=== PATIENT | female | born 1960 | race Caucasian/White ===

== ENCOUNTER → 2017-12-09 15:39 | Outpatient (CLI) | payer MEDICARE, SELFPAY ==
[2017-12-09 17:29] LABS: Absolute Lymphocyte Count 2.57 X10^3/ul (0.83-4.51); Absolute Neutrophil Count 3.2 X10^3/uL (2.0-7.7); Basophil# 0.09 X10^3/uL; Basophil% 1.4 % (0-1); Eosinophil# 0.16 X10^3/uL; Eosinophils% 2.4 % (0-5); Hematocrit 39.3 % (37-47); Hemoglobin 13.2 g/dl (12.0-15.0); Lymphocyte # 2.57 X10^3/ul (4.0); Lymphocyte % 39.2 % (19-41); Mean Corp Hgb Conc 33.6 g/gl (32-36); Mean Corpuscular Hgb 31.2 pg (27.0-32.0); Mean Corpuscular Volume 92.9 fL (81-99); Mean Platelet Vol. 9.9 fl (6.2-12.0); Monocyte# 0.49 X10^3/uL; Monocyte% 7.5 % (0-10); Neutrophil # 3.24 X10^3/uL (2.7-7.7); Neutrophil % 49.5 % (47-70); Platelet Count 360 K/mm3 (150-450); RBC Distribution Width CV 12.8 % (11.6-14.6); RBC Distribution Width SD 43.3 fl (35.1-43.9); Red Blood Count 4.23 M/mm3 (4.2-5.4); White Blood Count 6.6 K/mm3 (4.4-11.0)
[2017-12-09 17:33] LABS: POSITIVE COUNT NO; POSITIVE DIFFERENTIAL NO; POSITIVE MORPHOLOGY NO
[2017-12-09 18:01] LABS: AST(SGOT) 19 U/L (15-37); Alanine Aminotransfer ALT/SGPT 25 U/L (13-56); Albumin, Serum 3.9 g/dL (3.2-5.0); Alkaline Phosphatase 119 U/L (45-117); Anion Gap 10 (5-15); BUN 15 mg/dL (7-18); BUN/Creat Ratio 12.7 RATIO (10-20); Calcium,Total 8.7 mg/dL (8.5-10.1); Chloride 101 mmol/L (98-107); Creatinine, Serum 1.18 mg/dL (0.55-1.02); EST Glomerular Filtration Rate 50 mL/min (>60); Est Glom Filt Rate - Afr Amer 60 mL/min (>60); Globulin 3.9 g/dL (2.2-4.2); Glucose 98 mg/dL (74-106); Potassium 3.5 mmol/L (3.5-5.1); Protein, Total 7.8 g/dL (6.4-8.2); Sodium Level 136 mmol/L (136-145); Thyroid Stim Hormone (TSH) 2.02 uIU/mL (0.358-3.74)
[2017-12-10 10:07] LABS: Vitamin D,25 Hydroxy 34.5 ng/mL (29.95-100.01)
== END ==
PROVIDERS: Family Provider Family Medicine Geriatric Medicine; PCP Family Medicine Geriatric Medicine; Visit Provider Family Medicine Geriatric Medicine
DX: E55.9 Vitamin D deficiency, unspecified (principal); R53.83 Other fatigue
CPT/HCPCS: 36415; 80053; 82306; 84443; 85025

== ENCOUNTER → 2020-04-26 18:23 | Outpatient (CLI) | payer MEDICARE, SELFPAY | PROVIDERS: PCP Family Medicine Geriatric Medicine; Referring Provider Family Medicine Geriatric Medicine; Visit Provider Family Medicine Geriatric Medicine | DX: R06.89 Other abnormalities of breathing (principal) | CPT/HCPCS: 87633; 87635; C9803; U0003 ==

== ENCOUNTER → 2020-05-29 14:12 | Outpatient (CLI) | payer MEDICARE, SELFPAY ==
[2017-02-10 09:30] VITALS: BMI 27.8
[2020-05-29 16:38] LABS: Absolute Lymphocyte Count 1.97 X10^3/uL (0.83-4.51); Absolute Neutrophil Count 4.4 X10^3/uL (2.0-7.7); Basophil# 0.11 X10^3/uL; Basophil% 1.6 % (0-1); Eosinophil# 0.09 X10^3/uL; Eosinophils% 1.3 % (0-5); Hematocrit 43.9 % (37-47); Hemoglobin 13.9 g/dL (12.0-15.0); Lymphocyte # 1.97 X10^3/ul (4.0); Lymphocyte % 28.1 % (19-41); Mean Corp Hgb Conc 31.7 g/dL (32-36); Mean Corpuscular Hgb 30.6 pg (27.0-32.0); Mean Corpuscular Volume 96.7 fL (81-99); Monocyte% 5.7 % (0-10); NRBC Flagged by Analyzer 0 % (0-5); Neutrophil # 4.42 X10^3/uL (2.7-7.7); Platelet Count 404 K/mm3 (150-450); RBC Distribution Width CV 12.8 % (11.6-14.6); RBC Distribution Width SD 46.4 fl (35.1-43.9); Red Blood Count 4.54 M/mm3 (4.2-5.4)
[2020-05-29 17:00] LABS: ALB/GLOB Ratio 1.2 RATIO (0.9-2.4); AST(SGOT) 15 U/L (15-37); Alanine Aminotransfer ALT/SGPT 20 U/L (13-56); Albumin, Serum 4.2 g/dL (3.2-5.0); Alkaline Phosphatase 89 U/L (45-117); Anion Gap 4 (5-15); BUN 8 mg/dL (7-18); BUN/Creat Ratio 6.7 RATIO (10-20); Calcium,Total 9.3 mg/dL (8.5-10.1); Chloride 102 mmol/L (98-107); EST Glomerular Filtration Rate 49 mL/min (>60); Est Glom Filt Rate - Afr Amer 59 mL/min (>60); Globulin 3.4 g/dL (2.2-4.2); Glucose 95 mg/dL (74-106); Potassium 3.9 mmol/L (3.5-5.1); Protein, Total 7.6 g/dL (6.4-8.2); Sodium Level 136 mmol/L (136-145); Thyroid Stim Hormone (TSH) 0.94 uIU/mL (0.358-3.74)
== END ==
LOC: POLAB3 14:13
PROVIDERS: PCP Family Medicine Geriatric Medicine; Visit Provider Family Medicine Geriatric Medicine
DX: E55.9 Vitamin D deficiency, unspecified (principal); R53.83 Other fatigue
CPT/HCPCS: 36415; 80053; 82306; 84443; 85025

== ENCOUNTER → 2020-06-24 15:03 | Outpatient (CLI) | payer MEDICARE, MEDICAID, SELFPAY ==
--- NOTE | 2020-06-24 15:04 | BI_ITS ---
MAMMOGRAPHY - BILATERAL SCREENING REASON FOR EXAM: Female, 60 years old. Routine annual screening examination. PERTINENT HISTORY: Sister with breast cancer. TECHNIQUE: Digital bilateral breast terrence (3D mammographic acquisition) in the CC and MLO projections. 2-D mediolateral oblique (MLO) and craniocaudad (CC) views of both breasts were obtained. CAD: Full Field Digital Mammography with Computer Added Detection was performed. COMPARISON: Comparison is made with prior study dated 09/18/2016. FINDINGS: Breast Composition: The breasts are heterogeneously dense, which may obscure small masses. There are no dominant masses or suspicious calcifications. Stable small benign-appearing bilateral axillary lymph nodes. No other significant abnormalities are identified. There has been no significant change since the prior study. BI/SCRN MAMM (CAD)W/TERRENCE BILAT IMPRESSION: Stable bilateral screening mammogram. Yearly follow-up mammogram recommended. (A) ASSESSMENT CATEGORY: BIRADS Category 2: Benign. A letter regarding these results will be sent to the patient by the facility within 30 days. Approximately 10% of breast cancers are not detected by mammography. A normal mammogram should not delay biopsy of a clinically suspicious abnormality. [id number] Electronically Signed: Flo Reyes MD at 8:28 EST , Service support ,
--- NOTE | 2020-06-24 15:53 | CT_ITS ---
STUDY: LOW DOSE CT LUNG CANCER SCREENING REASON FOR EXAM: Female, 60 years old. LUNG SCREENING -- +SMOKER 1/2PPD X50 YEARS RADIATION DOSAGE (If Supplied By Facility): CTDIvol = ( 1.70 ) mGy, DLP = ( 48.72 ) mGycm TECHNIQUE: No contrast was administered. Low dose technique was utilized (average mAS-38 and kVp 120). 1.25 mm axial source images with a slice interval of 1.25-mm were reconstructed in lung windows. 2.5 mm axial source images with a slice interval of 2.5-mm were reconstructed in lung windows. 5.0 mm axial source images with a slice interval of 5.0-mm were reconstructed in soft tissue windows. Nodule measured using lung windows on PACS and/or independent workstation with automated measurement of minimum and maximum diameter. Nodule measurement reported as average diameter rounded to the nearest whole number. Growth is defined as an increase ins size of greater than 1.5 mm. COMPARISON: None. NODULES: No suspicious nodules are seen. Emphysema: Minimal increased linear markings are seen in the medial aspect of the right middle lobe as well as the lingular segment of the left upper lobe suggestive of mild scarring. Endobronchial lesion: Aorta: Mild atherosclerotic plaque and calcification at the aortic arch. Coronary arteries: Coronary artery calcification. Mediastinal nodes: Small benign-appearing mediastinal lymph nodes. Other chest and abdominal findings: CT/Low Dose CT Lung Screening IMPRESSION: Lung-RADS category 2 - Continue annual screening with LDCT in 12 months. IMPORTANT NOTES FOR USE: ACR Lung-RADS Version 1.0 Assessment Categories Release Date: September 11, 2013 Category: Coded 0-4 bases on nodule(s) with highest degree of suspicion. Negative screen is defined as categories 1 and 2; a positive screen is defined as categories 3 and 4. Category 3 and 4A nodules that are unchanged on interval CT should be coded as category 2, and individuals returned to screening in 12 months. Category 4X: Category 3 or 4 nodules with additional imaging findings that increase the suspicion of lung cancer, such as spiculation, GGN that doubles in size in 1 year, enlarged lymph notes, etc. Category Modifiers: S (significant finding unrelated to lung cancer) and C (prior history of treated lung cancer) may be added to the 0-4 Lung-RADS Electronically Signed: Flo Reyes MD at 8:55 EST , Service support ,
== END ==
PROVIDERS: PCP Family Medicine Geriatric Medicine; Referring Provider Family Medicine Geriatric Medicine; Visit Provider Family Medicine Geriatric Medicine
DX: Z12.31 Encounter for screening mammogram for malignant neoplasm of breast (principal); F17.210 Nicotine dependence, cigarettes, uncomplicated
CPT/HCPCS: 71271; 77063; 77067

== ENCOUNTER 2020-09-16 07:46 | Day surgery (SDC) | payer MEDICARE, MEDICAID, SELFPAY ==
[2020-08-26 14:01] VITALS: BMI 29.5
[2020-09-16] VITALS (8 sets, daily range): BP systolic 94–107; BP diastolic 57–77; PULSE 63–85; RESP 16–18; TEMP 35.7–36.2; O2SAT 90–95; BMI 28.8
--- NOTE | 2020-09-16 | GASB_PTH ---
PATIENT: NAVIN AUGUST I LOC: EN U#:[id number] AGE/SX: 60/F ROOM: RE09/16/[address]: Dr. Jenn Tolentino MD : 1960 BED: DIS: 09/16/2020 SPEC #: [id number] RECD: 09/16/20 13:38 STATUS: BLADIMIR REQ #: [id number] PATRICIO: 09/16/20 00:[address]: Jenn Tolentino DEPT: SURGICAL PATHOLOGY RECD BY: Enrike Erickson ENTERED: 09/16/20 13:38 SP TYPE: Gastric Bx OTHR DR: Dr. Yobany Snell MD Tissues: Gastric mucous membrane Procedures: Surgery Specimen Level IV HEADER OPERATION: Colonoscopy, EGD ([facility]) PRE-OP DIAGNOSIS: Positive Cologuard TISSUE SUBMITTED: Antrum biopsy for H. pylori and path MICROSCOPIC DIAGNOSIS Antrum biopsy: Mild gastritis. See microscopic description and comment. SJ:emily 09/17/2020 COMMENT The results of immunohistochemistry for Helicobacter pylori will be reported separately ([id number]). MICROSCOPIC DESCRIPTION Slides are reviewed. The specimen shows fragments of gastric mucosa with chronic inflammatory cell infiltrates in the lamina propria consisting of lymphocytes and plasma cells, consistent with mild chronic gastritis. GROSS DESCRIPTION Received in fixative is one container labeled with the patient's name and designated antrum biopsy. The specimen consists of one irregular fragment of light saucedo soft tissue that measures 0.3 x 0.3 x 0.1 cm. The specimen is totally submitted in one cassette. / DAMARIS:emily 09/16/20 TC:4 CPT: 24813
--- NOTE | 2020-09-16 08:06 | HP.PCM_ITS ---
History and Physical Date of Admission: 09/16/20 Date of Service: 08/26/20 MR#:[id number]:[id number]: NAVIN AUGUST [facility] #:[id number]:1960 Provider:Michael Calzada/Sex: 60/F [facility] Int[facility] Vital Signs 08/26/20 Height 5 ft 08/26/20 Weight: 151 lb 08/26/20 BMI 29.5 08/26/20 BP 129/83 H 08/26/20 Blood Pressure Location Rt brachial 08/26/20 Position Sitting 08/26/20 Respiration 16 08/26/20 Pulse 84 08/26/20 Pulse Source Monitor 08/26/20 Temp 97.8 F 08/26/20 Temp Source Temporal 08/26/20 Pulse Oximetry (%) 94 08/26/20 Oxygen Delivery Method room air Intake Visit Reasons: POSITIVE COLOGUARD, CSCOPE 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 Is patient in pain?: No Allergies levofloxacin [From Levaquin] Allergy (Verified 01/26/17 09:35) Angioedema Medications Levothyroxine [Synthroid] 25 mcg PO DAILY 03/08/15 [History Confirmed 08/26/20] Meloxicam [Mobic] 7.5 mg PO BID 03/08/15 [History Confirmed 08/26/20] Potassium Chloride Oral Tablet [K-Dur] 10 meq PO BID 03/08/15 [History Confirmed 02/10/17] Omeprazole [Prilosec] 40 mg PO DAILY 01/05/17 [History Confirmed 08/26/20] Suvorexant [Belsomra] 15 mg PO QHS 01/05/17 [History Confirmed 02/10/17] Topiramate [Topamax] 50 mg PO QHS 01/05/17 [History Confirmed 02/10/17] clonazepam 1 mg tablet 1 mg PO BID PRN tablet 08/26/20 [History Confirmed 08/26/20] fentanyl 50 mcg/hr transdermal patch 1 patch TD each 08/26/20 [History Confirmed 08/26/20] ipratropium bromide 42 mcg (0.06 %) nasal spray INTRANASAL 08/26/20 [History Confirmed 08/26/20] lamotrigine 200 mg tablet 400 mg PO DAILY tablet 08/26/20 [History Confirmed 08/26/20] levocetirizine 5 mg tablet mg PO 08/26/20 [History Confirmed 08/26/20] sertraline 50 mg tablet mg PO 08/26/20 [History Confirmed 08/26/20] tizanidine 4 mg tablet 4 mg PO TID PRN tablet 08/26/20 [History Confirmed 08/26/20] PFSH Medical History (Updated 08/26/20 @ 13:57 by Imelda Batres) Vitamin D deficiency (Acute) Osteoarthritis (Acute) Chronic pain (Chronic) Depression (Acute) Anxiety (Acute) Hyperlipidemia (Acute) Surgical History (Updated 08/26/20 @ 13:59 by Imelda Batres) Hx of colonoscopy (Acute) Hx of exploratory laparotomy (Acute) Family History (Updated 08/26/20 @ 14:01 by Imelda Batres) Father Asthma Heart disease Osteoporosis Mother Arthritis Diabetes Thyroid disorder Brother CVA (cerebral vascular accident) Sister Breast cancer Social History (Updated 08/26/20 @ 14:[address] Jenn Tolentino MD) Smoking Status: Current every day smoker second hand exposure: No alcohol intake: never substance use type: does not use caffeine: Yes HPI HPI HPI: NAVIN AUGUST, is a 60 F who presents to the office today for HPI HPI Surgical H&P: Yes HPI: NAVIN AUGUST, is a 60 F who presents to the office today for positive Cologuard. Patient's last colonoscopy was 02/10/2017 showed melanosis coli and had a hyperplastic rectal polyp. Patient states she occasionally has small amount of blood due to hemorrhoids otherwise has bowel once daily denies any other blood. Patient states she has reflux maybe about once a month denies any chronic abdominal pain nausea or vomiting. Patient is never had EGD previously. Patient's paternal grandmother had colon cancer in her late year 60s or early 70s. ROS General General: Yes fatigue; no weight change Gastro Gastrointestinal: No abdominal pain, No nausea or vomiting, No diarrhea, Yes constipation, No blood in stool, No acid reflux, No hemorrhoids, No ulcers, No gallbladder problem, No black,tarry stools Exam Const General: cooperative, comfortable, no acute distress, well developed Resp Effort & Inspection: normal respiratory effort Cardio Rate: regular rate GI Inspection: non-distended Palpation: soft, nontender Extrem General: no clubbing, cyanosis or edema Psych Affect: normal affect Assessment & Plan Problems 1. Positive colorectal cancer screening using Cologuard test R19.5 Plan I have discussed the above with the patient. I have offered the patient EGD and colonoscopy for evaluation. We will plan for 09/09/2020 per patient request I have explained the risks/benefits of the procedure and described the procedure. I have discussed the risks with the patient, including but not limited to: infection, bleeding, perforation of the GI tract requiring emergency surgery, inability to complete the procedure, injury to any internal organs, complications of anesthesia, etc. - the patient understands and agrees to proceed. I have answered all the patient's questions to the patient's satisfaction and the patient has no further questions. The patient has been given instructions for the colon cleansing preparation. 1 day clears MiraLAX Dulcolax split prep. Jenn Tolentino M.D. Pager: [phone] [facility] [address] [place] [address] [place] [address] Office: [phone] Orders Orders: Colonoscopy Today EGD Today Plan Detail Follow Up We will schedule EGD and colonoscopy Coding Level of Care Code Off vis,est,level 3 Diagnoses Positive colorectal cancer screening using Cologuard test R19.5 COVID (Procedure Consent) Procedure Criteria Procedure Criteria: Yes Elective The surgeon/proceduralist and patient have discussed in detail the risk of exposure to and/or potential harm posed by the COVID-19 virus with having a surgery/procedure at this time versus the risk of delaying the surgery/procedure. It is not possible to know either the risk of delaying the surgery or procedure or chance of getting an infection with perfect accuracy, but a joint decision was made between the patient and the surgeon/proceduralist to proceed at this time with the scheduled surgery/procedure as indicated on the consent form. 08/26/20 1429<Electronically signed by Jenn Tolentino MD>Date Jenn Tolentino MD
[2020-09-16] MEDS: Lactated Ringers 1,000 ML 100 ML IV (08:17)
--- NOTE | 2020-09-16 09:00 | IMM_PTH ---
PATIENT: NAVIN AUGUST I LOC: EN U#:[id number] AGE/SX: 60/F ROOM: RE09/16/[address]: Dr. Jenn Tolentino MD : 1960 BED: DIS: 09/16/2020 SPEC #: [id number] RECD: 09/16/20 14:17 STATUS: BLADIMIR REQ #: [id number] PATRICIO: 09/16/20 09:[address]: Jenn Tolentino DEPT: IMMUNOHISTOCHEMISTRY RECD BY: Mary Will ENTERED: 09/16/20 14:17 SP TYPE: IMMUNO OTHR DR: Dr. Yobany Snell MD Tissues: Stomach, NOS Procedures: H Pylori (initial) PHYSICIAN & INSTITUTION [place] [address] SPECIMEN INFORMATION: Tissue Source: Antrum biopsy Clinical Info: Positive Cologuard Specimen Number: [id number] CPT code: 38228 METHODOLOGY: Deparaffinized sections of prefer/formalin-fixed tissue or PAP/DQ stained slides are incubated with monoclonal/polyclonal antibodies/oligonucleotide probes. Localization is made via biotin free immunoperoxidase method. Appropriate controls are performed and reacted as expected. Results on target cell population are indicated in the following table: RESULTS: ANTIBODY / CLONE RESULT H Pylori (polyclonal) negative These tests were developed and their performance characteristics determined by [facility]. They may not have been cleared or approved by the U.S. Food and Drug Administration. The FDA has determined that such clearance or approval is not necessary. INTERPRETATION: Antrum biopsy: Negative for Helicobacter pylori organisms. DAMARIS:emily 09/17/2020
--- NOTE | 2020-09-16 09:35 | OP.EGD_ITS ---
Patient Name: Lauryn Olsen Procedure Date: 09/16/2020 8:49 AM Date of : 1960 Age: 60 Procedure: Upper GI endoscopy Indications: +cologuard Providers: Jenn Tolentino MD Referring MD: Yobany Snell MD Medicines: Monitored Anesthesia Care Patient Profile: This is a 60 year old female. Complications: No immediate complications. Procedure: Pre-Anesthesia Assessment: - Prior to the procedure, a History and Physical was performed, and patient medications and allergies were reviewed. The patient's tolerance of previous anesthesia was also reviewed. The risks and benefits of the procedure and the sedation options and risks were discussed with the patient. All questions were answered, and informed consent was obtained. Prior Anticoagulants: The patient has taken no previous anticoagulant or antiplatelet agents. ASA Grade Assessment: Per anesthesia. After reviewing the risks and benefits, the patient was deemed in satisfactory condition to undergo the procedure. After obtaining informed consent, the endoscope was passed under direct vision. Throughout the procedure, the patient's blood pressure, pulse, and oxygen saturations were monitored continuously. The gastroscope was introduced through the mouth, and advanced to the second part of duodenum. The upper GI endoscopy was accomplished without difficulty. The patient tolerated the procedure well. Scope In: 8:56:24 AM Scope Out: 9:00:18 AM Total Procedure Duration Time 0 hours 3 minutes 54 seconds Findings: The Z-line was found 35 cm from the incisors. Moderately erythematous mucosa was found in the gastric antrum. Biopsies were taken with a cold forceps for histology. Biopsies were taken with a cold forceps for Helicobacter pylori cultures. The cardia and gastric fundus were normal on retroflexion. The examined duodenum was normal. The esophagus was normal. Impression: - Z-line, 35 cm from the incisors. - Erythematous mucosa in the antrum. Biopsied. - Normal examined duodenum. - Normal esophagus. Recommendation: - Await pathology results. - Discharge patient to home. - Resume previous diet. - Use Protonix (pantoprazole) 40 mg PO daily. - Continue present medications. Procedure Code(s): --- Professional --- 58450, Esophagogastroduodenoscopy, flexible, transoral; with biopsy, single or multiple Diagnosis Code(s): --- Professional --- K31.89, Other diseases of stomach and duodenum CPT copyright 2017 [employer]. All rights reserved. The codes documented in this report are preliminary and upon golf course laborer review may be revised to meet current compliance requirements. MD Jenn Saucedo MD 09/16/2020 9:35:12 AM This report has been signed electronically. Number of Addenda: 0 Note Initiated On: 09/16/2020 8:49 AM
--- NOTE | 2020-09-16 09:35 | OP.CCLET_ITS ---
09/16/2020 Yobany Snell MD [address] [place] [address] Re : Upper GI endoscopy procedure for Lauryn Olsen Dear Dr. Snell This procedure was performed on Wednesday, September 16, 2020. My impressions and recommendations are as follows: Impressions : - Z-line, 35 cm from the incisors. - Erythematous mucosa in the antrum. Biopsied. - Normal examined duodenum. - Normal esophagus. Recommendations : - Await pathology results. - Discharge patient to home. - Resume previous diet. - Use Protonix (pantoprazole) 40 mg PO daily. - Continue present medications. My findings are described in the full procedure note, which is enclosed. If I can be of further assistance, please feel free to contact me at Doctor phone number(s): , Work: . Sincerely, MD Jenn Saucedo MD 09/16/2020 9:35:12 AM This report has been signed electronically.
--- NOTE | 2020-09-16 09:39 | OP.COLON_ITS ---
Patient Name: Lauryn Olsen Procedure Date: 09/16/2020 9:02 AM Date of : 1960 Age: 60 Procedure: Colonoscopy Indications: Positive Cologuard test Providers: Jenn Tolentino MD Referring MD: Yobany Snell MD Medicines: Monitored Anesthesia Care Patient Profile: This is a 60 year old female. Last Colonoscopy: January 2017. Complications: No immediate complications. Procedure: Pre-Anesthesia Assessment: - Prior to the procedure, a History and Physical was performed, and patient medications and allergies were reviewed. The patient's tolerance of previous anesthesia was also reviewed. The risks and benefits of the procedure and the sedation options and risks were discussed with the patient. All questions were answered, and informed consent was obtained. Prior Anticoagulants: The patient has taken no previous anticoagulant or antiplatelet agents. ASA Grade Assessment: Per anesthesia. After reviewing the risks and benefits, the patient was deemed in satisfactory condition to undergo the procedure. After I obtained informed consent, the scope was passed under direct vision. Throughout the procedure, the patient's blood pressure, pulse, and oxygen saturations were monitored continuously. The colonoscope was introduced through the anus and advanced to the cecum, identified by the appendiceal orifice, ileocecal valve and palpation. The colonoscopy was performed without difficulty. The patient tolerated the procedure well. The quality of the bowel preparation was adequate to identify polyps 6 mm and larger in size. Scope In: 9:03:02 AM Scope Withdrawal Time 0 hours 15 minutes 53 seconds Scope Out: 9:28:55 AM Total Procedure Duration Time 0 hours 25 minutes 53 seconds Findings: Hemorrhoids were found on perianal exam. External and internal hemorrhoids were found. The hemorrhoids were Grade II vs III. The exam was otherwise without abnormality. Impression: - Hemorrhoids found on perianal exam. - External and internal hemorrhoids. - The examination was otherwise normal. - No specimens collected. Recommendation: - Discharge patient to home. - Resume previous diet. - Continue present medications. - Repeat colonoscopy in 5 years for screening purposes--due to only adequate prep. MD Jenn Saucedo MD 09/16/2020 9:39:16 AM This report has been signed electronically. Number of Addenda: 0 Note Initiated On: 09/16/2020 9:02 AM
--- NOTE | 2020-09-16 09:40 | OP.CCLET_ITS ---
09/16/2020 Yobany Snell MD [address] [place] [address] Re : Colonoscopy procedure for Lauryn Olsen Dear Dr. Snell This procedure was performed on Wednesday, September 16, 2020. My impressions and recommendations are as follows: Impressions : - Hemorrhoids found on perianal exam. - External and internal hemorrhoids. - The examination was otherwise normal. - No specimens collected. Recommendations : - Discharge patient to home. - Resume previous diet. - Continue present medications. - Repeat colonoscopy in 5 years for screening purposes--due to only adequate prep. My findings are described in the full procedure note, which is enclosed. If I can be of further assistance, please feel free to contact me at Doctor phone number(s): , Work: . Sincerely, MD Jenn Saucedo MD 09/16/2020 9:39:16 AM This report has been signed electronically.
== END 2020-09-16 10:24 ==
LOC: EN 07:47 → AC 07:48
PROVIDERS: PCP Family Medicine Geriatric Medicine; Referring Provider Family Medicine Geriatric Medicine; Visit Provider Surgery
PROC: 0DJD8ZZ Inspection of Lower Intestinal Tract, Via Natural or Artificial Opening Endoscopic (ICD-10-PCS; CPT 45378; principal; 2020-09-16 08:55)
DX: K64.4 Residual hemorrhoidal skin tags (principal); K64.8 Other hemorrhoids; K29.70 Gastritis, unspecified, without bleeding; R19.5 Other fecal abnormalities; E78.5 Hyperlipidemia, unspecified; F32.9 Major depressive disorder, single episode, unspecified; F41.9 Anxiety disorder, unspecified; E55.9 Vitamin D deficiency, unspecified; G89.29 Other chronic pain; Z80.0 Family history of malignant neoplasm of digestive organs; Z79.899 Other long term (current) drug therapy; F17.210 Nicotine dependence, cigarettes, uncomplicated
CPT/HCPCS: 43239; 45378; 87426; 88305; 88342; C9803; J7120; J2405

== ENCOUNTER → 2020-12-04 13:10 | Outpatient (CLI) | payer MEDICARE, MEDICAID, SELFPAY ==
[2020-09-16 08:06] VITALS: BMI 28.8
[2020-12-04 17:06] LABS: Absolute Lymphocyte Count 1.59 X10^3/uL (0.83-4.51); Absolute Neutrophil Count 4.4 X10^3/uL (2.0-7.7); Basophil# 0.08 X10^3/uL; Basophil% 1.2 % (0-1); Eosinophil# 0.25 X10^3/uL; Eosinophils% 3.7 % (0-5); Hematocrit 41.6 % (37-47); Hemoglobin 13.6 g/dL (12.0-15.0); Lymphocyte # 1.59 X10^3/ul (0.83-4.51); Lymphocyte % 23.5 % (19-41); Mean Corp Hgb Conc 32.7 g/dL (32-36); Mean Corpuscular Hgb 31.6 pg (27.0-32.0); Mean Corpuscular Volume 96.7 fL (81-99); Mean Platelet Vol. 10.1 fl (6.2-12.0); Monocyte# 0.41 X10^3/uL; Monocyte% 6.1 % (0-10); NRBC Flagged by Analyzer 0 % (0-5); Neutrophil % 64.9 % (47-70); Platelet Count 350 K/mm3 (150-450); RBC Distribution Width CV 12.6 % (11.6-14.6); RBC Distribution Width SD 44.9 fl (35.1-43.9); White Blood Count 6.8 K/mm3 (4.4-11.0)
[2020-12-04 17:23] LABS: Vitamin D,25 Hydroxy 32.4 ng/mL
[2020-12-04 17:31] LABS: ALB/GLOB Ratio 1.2 RATIO (0.9-2.4); AST(SGOT) 14 U/L (15-37); Alanine Aminotransfer ALT/SGPT 23 U/L (13-56); Albumin, Serum 4.1 g/dL (3.2-5.0); Alkaline Phosphatase 79 U/L (45-117); Anion Gap 9 (5-15); BUN 8 mg/dL (7-18); BUN/Creat Ratio 6.4 RATIO (10-20); Calcium,Total 8.9 mg/dL (8.5-10.1); Chloride 95 mmol/L (98-107); Cholesterol 263 mg/dL (200); Creatinine, Serum 1.25 mg/dL (0.55-1.02); EST Glomerular Filtration Rate 46 mL/min (>60); Est Glom Filt Rate - Afr Amer 56 mL/min (>60); Globulin 3.3 g/dL (2.2-4.2); Glucose 108 mg/dL (74-106); High Density Lipoprotein 43 mg/dL; Potassium 4.4 mmol/L (3.5-5.1); Protein, Total 7.4 g/dL (6.4-8.2); Sodium Level 133 mmol/L (136-145); Thyroid Stim Hormone (TSH) 1.29 uIU/mL (0.358-3.74); Triglycerides 183 mg/dL; Very Low Density Lipoprotein 37 mg/dL (5-40)
== END ==
PROVIDERS: PCP Family Medicine Geriatric Medicine; Visit Provider Family Medicine Geriatric Medicine
DX: E55.9 Vitamin D deficiency, unspecified (principal); E78.5 Hyperlipidemia, unspecified; R53.83 Other fatigue
CPT/HCPCS: 36415; 80053; 80061; 82306; 84443; 85025

== ENCOUNTER → 2021-04-01 15:54 | Outpatient (CLI) | payer MEDICARE, MEDICAID, SELFPAY | LOC: POLAB3 15:55 | PROVIDERS: PCP Family Medicine Geriatric Medicine; Visit Provider Family Medicine Geriatric Medicine | DX: E03.9 Hypothyroidism, unspecified (principal) | CPT/HCPCS: 36415; 84443 ==

== ENCOUNTER 2021-07-16 10:56 | Outpatient (CLI) | payer MEDICARE, MEDICAID, SELFPAY | END 2021-07-16 23:59 | disposition home or self-care (01) | LOC: PSN 10:59 | PROVIDERS: PCP Family Medicine Geriatric Medicine; Referring Provider Family Medicine Geriatric Medicine; Visit Provider Family Medicine Geriatric Medicine | DX: R68.83 Chills (without fever) (principal) | CPT/HCPCS: 87635; 87804; 87807; C9803; U0003; U0005 ==

== ENCOUNTER → 2022-04-07 | Outpatient (CLI) | payer MEDICARE, MEDICAID, SELFPAY ==
[2022-04-07 17:24] LABS: Absolute Neutrophil Count 8.3 X10^3/uL (2.0-7.7); Basophil# 0.06 X10^3/uL; Basophil% 0.6 % (0-1); Eosinophil# 0.09 X10^3/uL; Eosinophils% 0.8 % (0-5); Hematocrit 39.6 % (37-47); Hemoglobin 13.2 g/dL (12.0-15.0); Lymphocyte % 17.4 % (19-41); Mean Corp Hgb Conc 33.3 g/dL (32-36); Mean Corpuscular Hgb 31.7 pg (27.0-32.0); Mean Platelet Vol. 9.6 fl (6.2-12.0); Monocyte# 0.55 X10^3/uL; Monocyte% 5.1 % (0-10); NRBC Flagged by Analyzer 0 % (0-5); Neutrophil # 8.26 X10^3/uL (2.7-7.7); Neutrophil % 75.8 % (47-70); Platelet Count 422 K/mm3 (150-450); RBC Distribution Width CV 13.2 % (11.6-14.6); RBC Distribution Width SD 46.5 fl (35.1-43.9); Red Blood Count 4.17 M/mm3 (4.2-5.4); White Blood Count 10.9 K/mm3 (4.4-11.0)
[2022-04-07 18:37] LABS: ALB/GLOB Ratio 1.2 RATIO (0.9-2.4); AST(SGOT) 14 U/L (15-37); Alanine Aminotransfer ALT/SGPT 19 U/L (13-56); Alkaline Phosphatase 84 U/L (45-117); Anion Gap 9 (5-15); BUN 18 mg/dL (7-18); BUN/Creat Ratio 17.8 RATIO (10-20); Calcium,Total 8.9 mg/dL (8.5-10.1); Chloride 94 mmol/L (98-107); Cholesterol 239 mg/dL (200); Creatinine, Serum 1.01 mg/dL (0.55-1.02); EST Glomerular Filtration Rate 59 mL/min (>60); Est Glom Filt Rate - Afr Amer 71 mL/min (>60); Globulin 3.3 g/dL (2.2-4.2); Glucose 128 mg/dL (74-106); High Density Lipoprotein 40 mg/dL; Potassium 3.7 mmol/L (3.5-5.1); Protein, Total 7.3 g/dL (6.4-8.2); Sodium Level 131 mmol/L (136-145); Triglycerides 201 mg/dL; Very Low Density Lipoprotein 40 mg/dL (5-40)
[2022-04-07 18:41] LABS: Vitamin D,25 Hydroxy 36.8 ng/mL
== END | disposition home or self-care (01) ==
LOC: POLAB3 15:09
PROVIDERS: PCP Family Medicine Geriatric Medicine; Visit Provider Family Medicine Geriatric Medicine
DX: R53.83 Other fatigue (principal); E55.9 Vitamin D deficiency, unspecified; E78.5 Hyperlipidemia, unspecified
CPT/HCPCS: 36415; 80053; 80061; 82306; 84443; 85025

== ENCOUNTER → 2022-06-15 | Outpatient (CLI) | payer MEDICARE, MEDICAID, SELFPAY ==
--- NOTE | 2022-06-15 14:09 | RAD_ITS ---
INDICATION: NAUSEA EXAMINATION/TECHNIQUE: X-RAY - AP view XR Abdomen 1 View COMPARISON: None FINDINGS: BOWEL GAS PATTERN: Non-obstructive. Prominent colonic fecal load. FREE AIR: Not assessed on a single supine view. ORGANOMEGALY: Not seen. CALCIFICATIONS: Small calcified pelvic phleboliths noted. LOWER CHEST: Diaphragm and lung bases are excluded from [id number]. BONES AND SOFT TISSUES: Mild skeletal degenerative changes. RAD/Abdomen Single View IMPRESSION: Probable constipation, correlate clinically. Electronically Signed: Jak Lynn MD at 22:27 EST ,
[2022-06-15 17:16] LABS: Absolute Lymphocyte Count 2.02 X10^3/uL (0.83-4.51); Absolute Neutrophil Count 5.1 X10^3/uL (2.0-7.7); Basophil# 0.07 X10^3/uL; Basophil% 0.9 % (0-1); Eosinophils% 2.5 % (0-5); Hemoglobin 14.4 g/dL (12.0-15.0); Lymphocyte # 2.02 X10^3/ul (0.83-4.51); Lymphocyte % 25.4 % (19-41); Mean Corp Hgb Conc 35.1 g/dL (32-36); Mean Corpuscular Hgb 32.7 pg (27.0-32.0); Monocyte# 0.56 X10^3/uL; NRBC Flagged by Analyzer 0 % (0-5); Neutrophil # 5.08 X10^3/uL (2.7-7.7); Neutrophil % 63.9 % (47-70); Platelet Count 381 K/mm3 (150-450); RBC Distribution Width CV 12.7 % (11.6-14.6); RBC Distribution Width SD 43.8 fl (35.1-43.9); Red Blood Count 4.41 M/mm3 (4.2-5.4)
[2022-06-15 17:19] LABS: ALB/GLOB Ratio 1.2 RATIO (0.9-2.4); AST(SGOT) 14 U/L (15-37); Alanine Aminotransfer ALT/SGPT 19 U/L (13-56); Albumin, Serum 4.3 g/dL (3.2-5.0); Alkaline Phosphatase 83 U/L (45-117); Anion Gap 9 (5-15); BUN 14 mg/dL (7-18); BUN/Creat Ratio 11.5 RATIO (10-20); Calcium,Total 9.5 mg/dL (8.5-10.1); Chloride 96 mmol/L (98-107); Creatinine, Serum 1.22 mg/dL (0.55-1.02); EST Glomerular Filtration Rate 47 mL/min (>60); Est Glom Filt Rate - Afr Amer 57 mL/min (>60); Globulin 3.6 g/dL (2.2-4.2); Glucose 101 mg/dL (74-106); Potassium 3.9 mmol/L (3.5-5.1); Protein, Total 7.9 g/dL (6.4-8.2); Sodium Level 133 mmol/L (136-145)
== END | disposition home or self-care (01) ==
PROVIDERS: PCP Family Medicine Geriatric Medicine; Visit Provider Family Medicine Geriatric Medicine
DX: G93.40 Encephalopathy, unspecified (principal); R11.0 Nausea
CPT/HCPCS: 36415; 74018; 80053; 85025

== ENCOUNTER → 2022-06-16 | Outpatient (CLI) | payer MEDICARE, MEDICAID, SELFPAY | END | disposition home or self-care (01) | LOC: PSN 13:20 | PROVIDERS: PCP Family Medicine Geriatric Medicine; Referring Provider Family Medicine Geriatric Medicine; Visit Provider Family Medicine Geriatric Medicine | DX: U07.1 COVID-19 (principal); R68.83 Chills (without fever) | CPT/HCPCS: 87635; 87804; 87807; C9803; U0003; U0005 ==

== ENCOUNTER → 2023-01-07 | Outpatient (CLI) | payer MEDICARE, MEDICAID, SELFPAY ==
[2023-01-07 17:45] LABS: Absolute Lymphocyte Count 2.31 X10^3/uL (0.83-4.51); Basophil# 0.07 X10^3/uL; Basophil% 0.9 % (0-1); Eosinophil# 0.21 X10^3/uL; Eosinophils% 2.6 % (0-5); Hematocrit 42.2 % (37-47); Hemoglobin 13.8 g/dL (12.0-15.0); Lymphocyte # 2.31 X10^3/ul (0.83-4.51); Lymphocyte % 28.7 % (19-41); Mean Corp Hgb Conc 32.7 g/dL (32-36); Mean Corpuscular Hgb 33.6 pg (27.0-32.0); Mean Corpuscular Volume 102.7 fL (81-99); Mean Platelet Vol. 9.7 fl (6.2-12.0); Monocyte# 0.48 X10^3/uL; NRBC Flagged by Analyzer 0 % (0-5); Neutrophil # 4.95 X10^3/uL (2.7-7.7); Neutrophil % 61.4 % (47-70); Platelet Count 458 K/mm3 (150-450); RBC Distribution Width CV 12.6 % (11.6-14.6); Red Blood Count 4.11 M/mm3 (4.2-5.4); White Blood Count 8.1 K/mm3 (4.4-11.0)
[2023-01-07 18:15] LABS: ALB/GLOB Ratio 1.1 RATIO (0.9-2.4); AST(SGOT) 13 U/L (15-37); Alanine Aminotransfer ALT/SGPT 17 U/L (13-56); Albumin, Serum 3.9 g/dL (3.2-5.0); Alkaline Phosphatase 110 U/L (45-117); Anion Gap 7 (5-15); BUN 13 mg/dL (7-18); BUN/Creat Ratio 11.6 RATIO (10-20); Calcium,Total 9.2 mg/dL (8.5-10.1); Chloride 102 mmol/L (98-107); Cholesterol 227 mg/dL (200); Creatinine, Serum 1.12 mg/dL (0.55-1.02); EST Glomerular Filtration Rate 52 mL/min (>60); Est Glom Filt Rate - Afr Amer 63 mL/min (>60); Globulin 3.6 g/dL (2.2-4.2); Glucose 102 mg/dL (74-106); High Density Lipoprotein 49 mg/dL; Potassium 4.2 mmol/L (3.5-5.1); Protein, Total 7.5 g/dL (6.4-8.2); Sodium Level 137 mmol/L (136-145); Thyroid Stim Hormone (TSH) 1.09 uIU/mL (0.358-3.74); Triglycerides 153 mg/dL; Very Low Density Lipoprotein 31 mg/dL (5-40)
== END | disposition home or self-care (01) ==
PROVIDERS: PCP Family Medicine Geriatric Medicine; Visit Provider Family Medicine Geriatric Medicine
DX: R53.83 Other fatigue (principal); E78.5 Hyperlipidemia, unspecified
CPT/HCPCS: 36415; 80053; 80061; 84443; 85025

== ENCOUNTER → 2023-04-01 | Outpatient (CLI) | payer MEDICARE, MEDICAID, SELFPAY | END | disposition home or self-care (01) | LOC: PSN 14:04 | PROVIDERS: PCP Family Medicine Geriatric Medicine; Referring Provider Family Medicine Geriatric Medicine; Visit Provider Family Medicine Geriatric Medicine | DX: R68.83 Chills (without fever) (principal) | CPT/HCPCS: 87635; 87804; 87807; C9803 ==

== ENCOUNTER → 2023-04-15 | Outpatient (CLI) | payer MEDICARE, MEDICAID, SELFPAY ==
[2023-04-15 13:15] LABS: Absolute Lymphocyte Count 1.79 X10^3/uL (0.83-4.51); Absolute Neutrophil Count 6.2 X10^3/uL (2.0-7.7); Basophil# 0.11 X10^3/uL; Basophil% 1.3 % (0-1); Eosinophil# 0.14 X10^3/uL; Eosinophils% 1.6 % (0-5); Hematocrit 43.2 % (37-47); Hemoglobin 14.3 g/dL (12.0-15.0); Lymphocyte # 1.79 X10^3/ul (0.83-4.51); Lymphocyte % 20.5 % (19-41); Mean Corp Hgb Conc 33.1 g/dL (32-36); Mean Corpuscular Hgb 32.5 pg (27.0-32.0); Mean Corpuscular Volume 98.2 fL (81-99); Mean Platelet Vol. 9.2 fl (6.2-12.0); Monocyte# 0.49 X10^3/uL; Monocyte% 5.6 % (0-10); NRBC Flagged by Analyzer 0 % (0-5); Neutrophil # 6.17 X10^3/uL (2.7-7.7); Neutrophil % 70.7 % (47-70); Platelet Count 477 K/mm3 (150-450); RBC Distribution Width CV 12.7 % (11.6-14.6); RBC Distribution Width SD 45.5 fl (35.1-43.9); White Blood Count 8.7 K/mm3 (4.4-11.0)
[2023-04-15 13:32] LABS: Vitamin D,25 Hydroxy 29.8 ng/mL
[2023-04-15 13:38] LABS: ALB/GLOB Ratio 1.1 RATIO (0.9-2.4); AST(SGOT) 12 U/L (15-37); Alanine Aminotransfer ALT/SGPT 21 U/L (13-56); Albumin, Serum 4.2 g/dL (3.2-5.0); Alkaline Phosphatase 89 U/L (45-117); Anion Gap 8 (5-15); BUN 9 mg/dL (7-18); BUN/Creat Ratio 7.3 RATIO (10-20); Calcium,Total 9.1 mg/dL (8.5-10.1); Chloride 97 mmol/L (98-107); Cholesterol 277 mg/dL (200); Creatinine, Serum 1.24 mg/dL (0.55-1.02); EST Glomerular Filtration Rate 46 mL/min (>60); Est Glom Filt Rate - Afr Amer 56 mL/min (>60); Globulin 3.8 g/dL (2.2-4.2); Glucose 122 mg/dL (74-106); High Density Lipoprotein 55 mg/dL; Potassium 3.8 mmol/L (3.5-5.1); Sodium Level 132 mmol/L (136-145); Thyroid Stim Hormone (TSH) 2.01 uIU/mL (0.358-3.74); Triglycerides 174 mg/dL; Very Low Density Lipoprotein 35 mg/dL (5-40)
== END | disposition home or self-care (01) ==
PROVIDERS: PCP Family Medicine Geriatric Medicine; Visit Provider Family Medicine Geriatric Medicine
DX: R53.83 Other fatigue (principal); E55.9 Vitamin D deficiency, unspecified; E78.5 Hyperlipidemia, unspecified
CPT/HCPCS: 36415; 80053; 80061; 82306; 84443; 85025

== ENCOUNTER 2023-04-25 15:35 | Emergency (ER) | payer MEDICARE, SELFPAY ==
[2023-04-25 15:36] VITALS: BP 164/111; PULSE 73; RESP 14; TEMP 36.2; O2SAT 100
[2023-04-25 15:42] VITALS: BMI 26.4
--- NOTE | 2023-04-25 15:53 | CT_ITS ---
STUDY: CT CERVICAL SPINE WITHOUT CONTRAST REASON FOR EXAM: Female, 63 years old. Trauma RADIATION DOSAGE (If Supplied By Facility): CTDIvol = ( 19.00 ) mGy, DLP = ( 383.12 ) mGycm TECHNIQUE: High resolution transaxial imaging was performed without contrast material. Sagittal and coronal images were reconstructed. Individualized dose optimization techniques were used for this CT. COMPARISON: None FINDINGS: Normal craniovertebral junction. There are degenerative changes of the anterior atlantoaxial articulation. Normal odontoid process. There is reversal of the normal cervical lordosis. Normal vertebral bodies and posterior osseous elements. C2-3: Normal endplates. Normal disc height and morphology. Normal central canal and intervertebral neuroforamina. C3-4: Left uncovertebral hypertrophy produces severe left neural foraminal stenosis. Right uncovertebral hypertrophy produces mild right neural foraminal stenosis. No central spinal stenosis. C4-5: Normal endplates. Normal disc height and morphology. Normal central canal and intervertebral neuroforamina. C5-6: Mild bilobed disc osteophyte complex and bilateral uncovertebral hypertrophy produces mild spinal stenosis and mild bilateral neural foraminal stenosis. C6-7: Normal endplates. Normal disc height and morphology. Normal central canal and intervertebral neuroforamina. C7-T1: Normal endplates. Normal disc height and morphology. Normal central canal and intervertebral neuroforamina. Normal visualized soft tissue structures. CT/Spine Cervical without Contras IMPRESSION: 1. No acute fracture or subluxation. 2. Degenerative disc disease with reversal of the normal lordotic curvature. Electronically Signed: Neo Carvajal MD at 16:37 EST ,
--- NOTE | 2023-04-25 15:53 | CT_ITS ---
STUDY: CT BRAIN WITHOUT CONTRAST REASON FOR EXAM: Female, 63 years old. Trauma RADIATION DOSAGE (If Supplied By Facility): CTDIvol = ( 44.99 ) mGy, DLP = ( 779.24 ) mGycm TECHNIQUE: Transaxial CT imaging of the brain was performed without administration of intravenous contrast material. Individualized dose optimization techniques were used for this CT. COMPARISON: No relevant priors. FINDINGS: Normal soft tissue structures. Normal calvarium. There is mild cerebral atrophy with widening of the extra-axial spaces and ventricular dilatation. There are areas of decreased attenuation within the white matter tracts of the supratentorial brain, consistent with microvascular disease changes. Normal basal ganglia and thalami. Normal brainstem. Normal cerebellum. There is no intracranial hemorrhage. There are no findings of an acute ischemic infarction. Normal visualized paranasal sinuses. CT/Brain/Head without Contrast IMPRESSION: Chronic involutional changes of the brain. Electronically Signed: Neo Carvajal MD at 16:29 EST ,
--- NOTE | 2023-04-25 15:53 | RAD_ITS ---
STUDY: X-RAY CHEST REASON FOR EXAM: Female, 63 years old. cough TECHNIQUE: Single AP portable view of the chest. COMPARISON: 03/08/2015 FINDINGS: The lungs are clear and expanded. There is no demonstrated pleural abnormality. Normal size heart. Normal mediastinum and cabrera. Normal visualized pulmonary arteries. Normal visualized aortic arch and descending thoracic aorta. Normal visualized thoracic spine. Normal visualized ribs, clavicles, and shoulders. There is no demonstrated abnormality of the visualized soft tissue structures of the upper abdomen. RAD/Chest 1 View (Portable) IMPRESSION: Normal x-ray examination of the chest. Electronically Signed: Neo Carvajal MD at 16:33 EST ,
--- NOTE | 2023-04-25 15:53 | EKG12_ITS ---
Test Reason : FALL Blood Pressure : / mmHG Vent. Rate : 066 BPM Atrial Rate : 066 BPM P-R Int : 120 ms QRS Dur : 070 ms QT Int : 382 ms P-R-T Axes : 051 019 047 degrees QTc Int : 400 ms Normal sinus rhythm Possible Left atrial enlargement Borderline ECG When compared with ECG of 25-AUG-2012 22:39, No significant change was found Confirmed by SUMANTH PATEL, VANESSA ([id number]), videotape editor SABAS LIND ([id number]) on 05/04/2023 11:23:15 AM Referred By: Confirmed By:VANESSA JULIO MD
--- NOTE | 2023-04-25 15:54 | ED.VIS.FALL ---
HPI HPI - Fall History of Present Illness Chief Complaint: Fall Informant: patient and family Narrative Narrative: Patient presents after a fall from bed. Patient states she was in bed and reached for something. She can of lost her balance fell out of bed. She hit her right shoulder and her head. She did not lose consciousness. No palpitations. No trouble breathing. She is not on blood thinners. Patient really complains primarily right shoulder pain as the main area of discomfort. At first she stated she has not been sick recently. But then she stated that she is getting over bronchitis. She did see her doctor. She was told it is just a virus infection and she has to get over it on her own. She and her family admits that she is coughing less sounding better and feeling better. She does feel as though it is improving. But she also started [id number] cough medicine last night. She feels that that is made her little bit nauseated. Family is also concerned because the patient had unsteadiness once with a low sodium. But evidently there were multiple medication changes done after this and she has done well since. [facility] Medical History Anxiety Chronic pain Depression Hyperlipidemia Osteoarthritis Vitamin D deficiency Home Medications lamotrigine 200 mg tablet 400 mg PO DAILY 08/26/20 [History Last Taken Unknown] pantoprazole 40 mg tablet,delayed release 40 mg PO DAILY #30 tabs 09/16/20 [Rx Last Taken Unknown] benztropine 1 mg tablet 1 mg PO DAILY 04/25/23 [History Last Taken Unknown] galantamine 16 mg 24 hr capsule,extended release 16 mg PO DAILY 04/25/23 [History Last Taken Unknown] Allergy/AdvReac Type Severity Reaction Status Date / Time No Known Allergies Allergy Verified 04/25/23 15:37 Family History Father Asthma Heart disease Osteoporosis Mother Arthritis Diabetes Thyroid disorder Brother CVA (cerebral vascular accident) Sister Breast cancer Surgical History Hx of colonoscopy Hx of exploratory laparotomy Social History household members: family housing: house Smoking Status: Current every day smoker tobacco type: cigarettes second hand exposure: No alcohol intake: never substance use type: does not use caffeine: Yes ROS ROS ED ROS Narrative A complete review of systems was performed and is negative except as documented in the history of present illness. Some specific details below. Constitutional: No recent fevers or chills. Has felt as though she has had a URI as in the history of present illness but she is improving. EYE: No discharge, visual complaints, or pain. Full field cut. She does have an abrasion to the side of her right eye area. ENT: No difficulty swallowing. No swelling. No pain. No reflux symptoms. CV: Potation's or chest pain. Respiratory: See history of present illness. Some mild coughing but no sputum production. No fevers. She is not short of breath. She is a smoker and was counseled to quit. GI: No abdominal pain. Mild nausea but she has not had vomiting diarrhea. No blood in stool. : No frequency dysuria or hematuria. Musculoskeletal: See history of present illness. Skin: No rash. Nondiaphoretic. Abrasion lateral to right eye. Neuro: No weakness or numbness. Endocrine: No polyuria or polydipsia. EXAM Physical Exam Narrative Exam Narrative: CONSTITUTIONAL: Patient is nontoxic in appearance. The patient looks comfortable. Work of breathing looks normal. He tells a consistent story. HEENT: Patient has a very subtle abrasion to the lateral aspect of the right eyebrow but no swelling. No other facial abrasion contusion or tenderness. EYES: No conjunctival injection. No proptosis. Patient is normal. No indication of involvement of the orbit itself. NECK:No JVD. No stridor. But she does have a little bit of midline tenderness down the low at about C5-C6 area. But no swelling. CARDIOVASCULAR: Regular rate. Regular rhythm. No notable murmur. No JVD. RESPIRATORY: No respiratory distress. Breathing is unlabored. No wheezes. No rhonchi. No rales. No pain with a deep breath. No chest wall tenderness. No left smoke. GASTROINTESTINAL: Not distended. Bowel sounds are normal. No tenderness. No guarding. No rebound. No palpable mass. No bruit is heard. GENITOURINARY: No tenderness over the bladder. No CVA tenderness. MUSCULOSKELETAL: She has a little bit of erythema to the posterior area of the right shoulder. But most of her tenderness is at the proximal humerus on the right. But she still has good range of motion. There is no obvious swelling. No crepitance. Scapula itself is not tender. Clavicle is not tender. There is no subcu air. NEUROLOGICAL: Patient is alert and appropriate. No focal deficit noted. SKIN: Lesion as above. No pallor. No rashes. PSYCHIATRIC: Patient is calm. Mood is appropriate. Const Vital Signs: 04/25/23 15:36 04/25/23 15:44 Temperature 97.2 F L Temperature Source Temporal Pulse Rate 73 Respiratory Rate 14 Respiratory Effort Normal Blood Pressure 164/111 H Blood Pressure Mean 128 Pulse Ox 100 Oxygen Delivery Method Room Air Room Air MDM MDM MDM Narrative Medical decision making narrative: My independent interpretation of the patient's CT of the head shows no acute process but age-related changes this is consistent with final reading. My independent interpretation of CT of the neck shows no acute fracture and this is also consistent. My independent interpretation of her right shoulder x-ray shows no fracture or dislocation as does the final read. My independent interpretation patient's single view chest x-ray shows no acute process as does the final read. Patient's CBC is normal. Patient's electrolytes do show some mildly low sodium and chloride. But I do not think this is likely the source of her symptoms. I will give her some IV fluids that would increase the sodium. I do think this needs checked. But she is ambulatory, not nauseated and I think it is reasonable she goes home and has close follow-up. Lab Data Attestation: I reviewed the patient's lab results. Labs: Laboratory Results - last 24 hr 04/25/23 15:56 WBC 7.6 RBC 4.32 Hgb 14.0 Hct 42.0 MCV 97.2 MCH 32.4 H MCHC 33.3 RDW Std Deviation 43.5 RDW Coeff of Jeanne 12.0 Plt Count 415 MPV 8.7 Immature Gran % (Auto) 0.300 Neut % (Auto) 61.2 Lymph % (Auto) 28.7 [place] % (Auto) 7.2 Eos % (Auto) 1.7 Baso % (Auto) 0.9 Absolute Neuts (auto) 4.7 Absolute Lymphs (auto) 2.19 Nucleated RBC % 0 Sodium 127 L Potassium 3.5 Chloride 93 L Carbon Dioxide 28.0 Anion Gap 6 BUN 5 L Creatinine 1.01 Estim Creat Clear Calc 52.68 Est GFR (MDRD) Af Amer 71 Est GFR (MDRD) Non-Af 59 L BUN/Creatinine Ratio 5.0 L Glucose 120 H Calcium 9.3 Radiography Diagnostic Testing: Clinical Impression(s) from Imaging Studies Brain CT 04/25/23 15:53 IMPRESSION: Chronic involutional changes of the brain. Electronically Signed: Neo Carvajal MD at 16:29 EST Reading Location ID and State: [facility] [facility] / [employer] , Service support , Cervical Spine CT 04/25/23 15:53 IMPRESSION: 1. No acute fracture or subluxation. 2. Degenerative disc disease with reversal of the normal lordotic curvature. Electronically Signed: Neo Carvajal MD at 16:37 EST Reading Location ID and State: [place] [employer] , Service support , Chest X-Ray 04/25/23 15:53 IMPRESSION: Normal x-ray examination of the chest. Electronically Signed: Neo Carvajal MD at 16:33 EST Reading Location ID and State: [facility] / [employer] , Service support , Shoulder X-Ray 04/25/23 16:10 IMPRESSION: 1. No acute fracture or dislocation. 2. Mild acromioclavicular joint arthrosis. Electronically Signed: Neo Carvajal MD at 16:33 EST Reading Location ID and State: [facility] / [employer] , Service support , EKG Initial EKG: Comments: My independent interpretation of the patient's EKG shows a normal sinus rhythm with overall rate at 66. No ectopy. No acute ST elevation or depression. Mild baseline variation in spots. CO interval, QRS duration and QTc are all normal. Discharge Plan Triage Chief Complaint: Fall ED Provider: Zi San Dx/Rx/DC Orders Clinical Impression: Accidental fall from bed, Closed head injury, Hyponatremia, Cervical strain, Contusion of right shoulder Instructions: ED Hyponatremia Prescriptions: No Action lamotrigine 200 mg tablet 400 mg PO DAILY pantoprazole 40 mg tablet,delayed release (DR/EC) 40 mg PO DAILY Qty: 30 4RF benztropine 1 mg tablet 1 mg PO DAILY galantamine 16 mg capsule,ext rel. pellets 24 hr 16 mg PO DAILY Primary Care Provider: Yobany Snell Chi Referrals: Yobany Snell Chi, MD [Primary Care Provider] - 3-5 Days Disposition Disposition: Home, Self Care
[2023-04-25] MEDS: 0.9% Normal Saline (500mL Bag) 500 ML 1000 ML IV (16:02)
[2023-04-25] MEDS: Ondansetron 4 MG/2 ML Vial IV (16:02)
[2023-04-25 16:03] LABS: Absolute Lymphocyte Count 2.19 X10^3/uL (0.83-4.51); Absolute Neutrophil Count 4.7 X10^3/uL (2.0-7.7); Basophil# 0.07 X10^3/uL; Basophil% 0.9 % (0-1); Eosinophil# 0.13 X10^3/uL; Eosinophils% 1.7 % (0-5); Lymphocyte # 2.19 X10^3/ul (0.83-4.51); Lymphocyte % 28.7 % (19-41); Mean Corp Hgb Conc 33.3 g/dL (32-36); Mean Corpuscular Hgb 32.4 pg (27.0-32.0); Mean Corpuscular Volume 97.2 fL (81-99); Mean Platelet Vol. 8.7 fl (6.2-12.0); Monocyte# 0.55 X10^3/uL; Monocyte% 7.2 % (0-10); NRBC Flagged by Analyzer 0 % (0-5); Neutrophil # 4.68 X10^3/uL (2.7-7.7); Neutrophil % 61.2 % (47-70); Platelet Count 415 K/mm3 (150-450); RBC Distribution Width SD 43.5 fl (35.1-43.9); Red Blood Count 4.32 M/mm3 (4.2-5.4); White Blood Count 7.6 K/mm3 (4.4-11.0)
--- NOTE | 2023-04-25 16:10 | RAD_ITS ---
STUDY: X-RAY - RIGHT SHOULDER REASON FOR EXAM: Female, 63 years old. Trauma TECHNIQUE: 2 view(s) of the shoulder. COMPARISON: None. FINDINGS: Normal glenohumeral articulation. There is degenerative arthrosis of the acromioclavicular joint without inferior osseous spur formation. Normal acromion. Normal humeral head and visualized proximal humerus. The soft tissue structures are unremarkable. Normal visualized pulmonary apex. RAD/Shoulder min 2 Views IMPRESSION: 1. No acute fracture or dislocation. 2. Mild acromioclavicular joint arthrosis. Electronically Signed: Neo Carvajal MD at 16:33 EST ,
[2023-04-25 16:19] LABS: Anion Gap 6 (5-15); BUN 5 mg/dL (7-18); Calcium,Total 9.3 mg/dL (8.5-10.1); Chloride 93 mmol/L (98-107); Creatinine, Serum 1.01 mg/dL (0.55-1.02); EST Glomerular Filtration Rate 59 mL/min (>60); Est Glom Filt Rate - Afr Amer 71 mL/min (>60); Estimated Creatinine Clearance 52.68 ml/min; Glucose 120 mg/dL (74-106); Potassium 3.5 mmol/L (3.5-5.1); Sodium Level 127 mmol/L (136-145)
[2023-04-25] MEDS: 0.9% Normal Saline (500mL Bag) 500 ML 999 ML IV (17:13)
[2023-04-25 17:41] VITALS: PULSE 72; RESP 18
== END 2023-04-25 17:42 | disposition home or self-care (01) ==
PROVIDERS: Emergency Provider Emergency Medicine; PCP Family Medicine Geriatric Medicine; Visit Provider Emergency Medicine
DX: S09.90XA Unspecified injury of head, initial encounter (principal); S16.1XXA Strain of muscle, fascia and tendon at neck level, initial encounter; S40.011A Contusion of right shoulder, initial encounter; F17.210 Nicotine dependence, cigarettes, uncomplicated; Z79.899 Other long term (current) drug therapy; W06.XXXA Fall from bed, initial encounter
CPT/HCPCS: 70450; 71045; 72125; 73030; 80048; 85025; 93005; 96361; 96374; 99283; J7040; A4216; J2405

== ENCOUNTER → 2023-05-03 | Outpatient (CLI) | payer MEDICARE, SELFPAY ==
[2023-05-03 17:09] LABS: Urine Sodium 32 mmol/L (Not Establ.)
[2023-05-03 17:10] LABS: Anion Gap 7 (5-15); BUN 7 mg/dL (7-18); BUN/Creat Ratio 6.4 RATIO (10-20); Chloride 99 mmol/L (98-107); Creatinine, Serum 1.09 mg/dL (0.55-1.02); EST Glomerular Filtration Rate 54 mL/min (>60); Est Glom Filt Rate - Afr Amer 65 mL/min (>60); Glucose 101 mg/dL (74-106); Potassium 3.6 mmol/L (3.5-5.1); Sodium Level 135 mmol/L (136-145)
[2023-05-03 18:28] LABS: Osmolality, Serum 280 mOsm/KG (280-301); Osmolality, Urine 106 mOsm/KG
== END | disposition home or self-care (01) ==
LOC: POLAB3 15:43
PROVIDERS: PCP Family Medicine Geriatric Medicine; Visit Provider Family Medicine Geriatric Medicine
DX: E87.1 Hypo-osmolality and hyponatremia (principal)
CPT/HCPCS: 36415; 80048; 83930; 83935; 84300

== ENCOUNTER → 2023-06-02 | Outpatient (CLI) | payer MEDICARE, SELFPAY ==
--- OUTSIDE RECORDS SUMMARY | 2023-06-02 14:28 | XMS RPT_ITS | CCD ---
Author Name Unknown Address [address] [place] [address] Organization [facility] Care Team Providers Care Gifts Officer Name Role Phone Lisette Rees Unavailable Unavailable Lisette Rees Unavailable Unavailable AMY PATEL, DR SOLIS Primary Care Physician Amy, Cristobal Chi Primary Care Provider [phone] DR WILL REYES MD Primary Care Physician Amy, Cristobal Chi Primary Care Provider Amy, Cristobal Chi Primary Care Provider Amy, Cristobal Chi Primary Care Provider AMY, CRISTOBAL CHI Referring Unavailable SABAS JOHNSON Attending Unavailable NEFTALY COKER Attending Unavail able AMY, CRISTOBAL CHI Referring Unavailable AMY, CRISTOBAL CHI Primary Care Unavailable NELSY CHAUDHRAI Attending Unavailable NELSY CHAUDHARI Referring Unavailable AMY, CRISTOBAL CHI Primary Care Unavailable NELSY CHAUDHARI Attending Unavailable NELSY CHAUDHARI Referring Unavailable AMY, CRISTOBAL CHI Primary Care Unavailable NELSY CHAUDHARI Attending Unavailable AMY, CRISTOBAL CHI Primary Care Unavailable NELSY CHAUDHARI Attending Unavailable AMY, CRISTOBAL CHI Primary Care Unavailable NELSY CHAUDHARI Attending Unavailable AMY, CRISTOBAL CHI Primary Care Unavailable NELSY CHAUDHARI Attending Unavailable AMY, CRISTOBAL CHI Primary Care Unavailable Allergies Allergy Classification Reported Allergen(s) Allergy Type Date of Onset Reaction(s) Facility (20 sources) gabapentin; Translations: [gabapentin] Drug Allergy 01-31-2013 Rash [facility] Work Phone: (4 sources) levoFLOXacin; Translations: [levofloxacin] Drug Allergy Tongue swelling [facility] Work Phone: Medications Current Medications Medication Drug Class(es) Dates Sig (Normalized) Sig (Original) acetaminophen 325 mg oral capsule (4 sources) Start: 08-24-2018 acetaminophen 325 mg oral capsule Dose : 650 mg =, Oral, q6h, PRN Pain, scale 1-3, # 20 cap(s), 0 Refill(s), Pharmacy: [facility] [id number] Start Date: 08/24/18 Status: Ordered 72 hr fentaNYL 0.025 mg/hr transdermal system (20 sources) Opioid Agonist Start: 10-22-2022 End: 11-21-2022 fentaNYL (DURAGESIC) 25 mcg/hr Indications: Degeneration of intervertebral disc of lumbar region Apply 1 Patch as directed every 48 hours for 30 days. Do not start before October 22, 2022. 15 Patch 0 10/22/2022 11/21/2022 Active Completed/Discontinued Medications Medication Drug Class(es) Dates Sig (Normalized) Sig (Original) OXYCODONE-ACETAMINO PHEN (13 sources) Opioid Agonist Start: 07-19-2015 PERCOCET 5-325 MG TABS OXYCODONE-ACETAMINOP [facility] [id number] [place] Problems Active Problems Problem Classification Problem Date Documented Date Episodic/Chronic Abdominal pain (1 source) Abdominal pain; Translations: [Unspecified abdominal pain] Onset: 10-20-2021 Episodic Alcohol-related disorders (20 sources) Alcohol dependence; Translations: [Alcohol dependence, uncomplicated] 01-15-2010 Chronic Anxiety disorders (1 source) Anxiety disorder; Translations: [Anxiety disorder, unspecified] Onset: 12-25-2021 Chronic Asthma (20 sources) Asthma; Translations: [Unspecified asthma, uncomplicated] Onset: 10-13-2019 10-03-2019 Chronic Chronic obstructive pulmonary disease and bronchiectasis (5 sources) Chronic bronchitis; Translations: [Unspecified chronic bronchitis] Onset: 12-25-2021 03-01-2019 Chronic Deficiency and other anemia (4 sources) Anemia 03-01-2019 Episodic Diseases of mouth; excluding dental (1 source) Lesion of oral mucosa; Translations: [Other lesions of oral mucosa] Onset: 08-01-2021 Episodic Disorders of lipid metabolism (20 sources) Hyperlipidemia; Translations: [Hyperlipidemia, unspecified] Onset: 01-15-2010 01-15-2010 Chronic Fluid and electrolyte disorders (1 source) Hypo-osmolality and or hyponatremia; Translations: [Hypo-osmolality and hyponatremia] Onset: 12-25-2021 Episodic Headache; including migraine (20 sources) Headache; Translations: [Headache] 03-13-2010 Episodic Joint disorders and dislocations; trauma-related (2 sources) Derangement of knee; Translations: [Other internal derangements of right knee] Onset: 04-10-2015 04-24-2015 Chronic Menopausal disorders (20 sources) Menopausal symptom; Translations: [Menopausal and female climacteric states] Onset: 01-31-2013 01-31-2013 Chronic Mood disorders (20 sources) Bipolar disorder; Translations: [Bipolar I disorder] Onset: 01-01-2008 05-25-2016 Chronic Nutritional deficiencies (4 sources) Vitamin D deficiency 03-01-2019 Chronic Osteoarthritis (20 sources) Osteoarthritis of knee; Translations: [Degenerative joint disease involving multiple joints] Onset: 01-01-2008 04-04-2015 Chronic Other bone disease and musculoskeletal deformities (2 sources) Osteochondritis dissecans; 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, right knee] Onset: 04-10-2015 04-24-2015 Chronic Other connective tissue disease (4 sources) Fibromyositis 03-01-2019 Episodic Other connective tissue disease (20 sources) Muscle pain; Translations: [Myalgia and myositis, unspecified] 03-13-2010 Episodic Other connective tissue disease (1 source) Pain in right arm; Translations: [Pain in right arm] Onset: 12-11-2021 Episodic Other hereditary and degenerative nervous system conditions (20 sources) System disorder of the nervous system; Translations: [Other specified extrapyramidal and movement disorders] 03-13-2010 Chronic Other nervous system disorders (2 sources) Carpal tunnel syndrome, unspecified upper limb; Translations: [Carpal tunnel syndrome, unspecified upper limb] Onset: 02-03-2011 02-04-2011 Chronic Other nervous system disorders (20 sources) Chronic pain; Translations: [Other chronic pain] Onset: 01-14-2009 05-12-2021 Chronic Other nervous system disorders (1 source) Other chronic pain; Translations: [Chronic knee pain, unspecified laterality] Onset: 11-26-2021 Chronic Residual codes; unclassified (20 sources) Sleep apnea; Translations: [Sleep apnea, unspecified] Onset: 12-28-2007 01-15-2010 Chronic Residual codes; unclassified (4 sources) Chronic pain 03-01-2019 Episodic Residual codes; unclassified (4 sources) Tobacco user 03-01-2019 Episodic Spondylosis; intervertebral disc disorders; other back problems (20 sources) Degeneration of cervical intervertebral disc; Translations: [Other cervical disc degeneration, unspecified cervical region] Onset: 08-18-2017 Chronic Spondylosis; intervertebral disc disorders; other back problems (10 sources) Neck pain; Translations: [Low back pain] Onset: 02-03-2011 02-04-2011 Episodic Substance-related disorders (20 sources) Nondependent mixed drug abuse; Translations: [Other psychoactive substance abuse, uncomplicated] Onset: 01-15-2010 01-15-2010 Chronic Thyroid disorders (5 sources) Hypothyroidism; Translations: [Hypothyroidism, unspecified] Onset: 12-25-2021 03-01-2019 Chronic Past or Other Problems Problem Classification Problem Date Documented Da te Episodic/Chronic Joint disorders and dislocations; trauma-related (2 sources) Acute meniscal tear, medial; Translations: [Other tear of medial meniscus, current injury, unspecified knee, initial encounter] Onset: 04-03-2015 04-03-2015 Episodic Other aftercare (18 sources) Long-term current use of drug therapy; Translations: [Other care home (current) drug therapy] Onset: 11-21-2018 11-26-2021 Episodic Other aftercare (1 source) Other care home (current) drug therapy; Translations: [Other care home (current) drug therapy] Onset: 11-26-2021 Episodic Other connective tissue disease (20 sources) Fibromyalgia; Translations: [Fibromyalgia] Onset: 08-18-2017 11-26-2021 Episodic Other connective tissue disease (1 source) Fibromyalgia; Translations: [Fibromyalgia] Onset: 11-26-2021 Episodic Other gastrointestinal disorders (4 sources) Constipation; Translations: [Imaging of abdomen abnormal] Onset: 01-11-2017 01-11-2017 Episodic Other non-traumatic joint disorders (2 sources) Knee pain; Translations: [Pain in right knee] Onset: 04-03-2015 04-03-2015 Episodic Other non-traumatic joint disorders (4 sources) Pain in lower limb; Translations: [Pain in unspecified knee] Onset: 01-01-2008 03-13-2010 Episodic Other non-traumatic joint disorders (20 sources) Pain in unspecified knee; Translations: [Pain in joint, lower leg] Onset: 05-24-2019 11-26-2021 Episodic Residual codes; unclassified (20 sources) Disturbance in sleep behavior; Translations: [Sleep disorder, unspecified] Onset: 12-28-2007 03-13-2010 Episodic Screening and history of mental health and substance abuse codes (20 sources) Tobacco use and exposure - finding; Translations: [Personal history of nicotine dependence] Onset: 05-19-2007 03-13-2010 Episodic Results Test Name Value Interpretation Reference Range Facil ity Vital Signs Date Time Vital Sign Value Performing Clinician Facility 03-23-2022 15:00-0500 Diastolic blood pressure 68 mm[Hg] Nelsy ADAMS-Trino Work Phone: [facility] 03-23-2022 15:00-0500 Systolic blood pressure 145 mm[Hg] Nelsy ADAMS-C Work Phone: [facility] 03-23-2022 14:59-0500 Body temperature 97.7 [degF] Nelsy ADAMS-C Work Phone: [facility] 03-23-2022 14:59-0500 Heart rate 86 /min Nelsy ADAMS-C Work Phone: [facility] 03-23-2022 14:59-0500 Respiratory rate 18 /min Nelsy ADAMS-C Work Phone: [facility] 03-23-2022 14:59-0500 SaO2% (BldA) [Mass fraction] 93 % Nelsy Chaudhari PA-C Work Phone: [facility] 12-26-2021 11:32-0400 Body temperature 98.78 [degF] CARMEN HAIR CAPTAIN'S ASSISTANT-PLASTIC DESIGN APPLIER [facility] 12-26-2021 11:32-0400 Diastolic blood pressure 77 mm[Hg] CARMEN HIAR CAPTAIN'S ASSISTANT-PLASTIC DESIGN APPLIER [facility] 12-26-2021 11:32-0400 Heart rate 66 /min CARMEN HAIR CAPTAIN'S ASSISTANT-PLASTIC DESIGN APPLIER [facility] 12-26-2021 11:32-0400 Reason For Taking VItal Signs CARMEN KAPPER CAPTAIN'S ASSISTANT-PLASTIC DESIGN APPLIER [facility] 12-26-2021 11:32-0400 Systolic blood pressure 119 mm[Hg] CARMEN KAPPER CAPTAIN'S ASSISTANT-PLASTIC DESIGN APPLIER [facility] 12-26-2021 07:36-0400 Reason For Taking VItal Signs CARMEN KAPPER CAPTAIN'S ASSISTANT-PLASTIC DESIGN APPLIER [facility] 12-26-2021 07:20-0400 Body temperature 97.7 [degF] CARMEN KAPPER CAPTAIN'S ASSISTANT-PLASTIC DESIGN APPLIER [facility] 12-26-2021 07:20-0400 Diastolic blood pressure 81 mm[Hg] CARMEN KAPPER CAPTAIN'S ASSISTANT-PLASTIC DESIGN APPLIER [facility] 12-26-2021 07:20-0400 Heart rate 60 /min CARMEN KAPPER CAPTAIN'S ASSISTANT-PLASTIC DESIGN APPLIER [facility] 12-26-2021 07:20-0400 Reason For Taking VItal Signs CARMEN KAPPER CAPTAIN'S ASSISTANT-PLASTIC DESIGN APPLIER [facility] 12-26-2021 07:20-0400 Respiratory rate 16 /min CARMEN KAPPER CAPTAIN'S ASSISTANT-PLASTIC DESIGN APPLIER [facility] 12-26-2021 07:20-0400 Systolic blood pressure 120 mm[Hg] CARMEN KAPPER CAPTAIN'S ASSISTANT-PLASTIC DESIGN APPLIER [facility] 12-26-2021 06:16-0400 Heart rate 63 /min CARMEN KAPPER CAPTAIN'S ASSISTANT-PLASTIC DESIGN APPLIER [facility] 12-26-2021 04:10-0400 Body temperature 97.52 [degF] CARMEN KAPPER CAPTAIN'S ASSISTANT-PLASTIC DESIGN APPLIER [facility] 12-26-2021 04:10-0400 Diastolic blood pressure 77 mm[Hg] CARMEN KAPPER CAPTAIN'S ASSISTANT-PLASTIC DESIGN APPLIER [facility] 12-26-2021 04:10-0400 Mean blood pressure 101 mm[Hg] CARMEN KAPPER CAPTAIN'S ASSISTANT-PLASTIC DESIGN APPLIER [facility] 12-26-2021 04:10-0400 Respiratory rate 16 /min CARMEN KAPPER CAPTAIN'S ASSISTANT-PLASTIC DESIGN APPLIER [facility] 12-26-2021 04:10-0400 Systolic blood pressure 150 mm[Hg] CARMEN KAPPER CAPTAIN'S ASSISTANT-PLASTIC DESIGN APPLIER [facility] 12-26-2021 00:30-0400 Mean blood pressure 93 mm[Hg] CARMEN KAPPER CAPTAIN'S ASSISTANT-PLASTIC DESIGN APPLIER [facility] 12-26-2021 00:30-0400 Respiratory rate 18 /min CARMEN KAPPER CAPTAIN'S ASSISTANT-PLASTIC DESIGN APPLIER [facility] 12-25-2021 19:04-0400 Mean blood pressure 116 mm[Hg] CARMEN KAPPER CAPTAIN'S ASSISTANT-PLASTIC DESIGN APPLIER [facility] 12-25-2021 16:53-0400 Heart rate 66 /min CARMEN KAPPER CAPTAIN'S ASSISTANT-PLASTIC DESIGN APPLIER [facility] 12-25-2021 14:22-0400 Heart rate 66 /min CARMEN KAPPER CAPTAIN'S ASSISTANT-PLASTIC DESIGN APPLIER [facility] 12-25-2021 14:18-0400 Body height 150 cm CARMEN KAPPER CAPTAIN'S ASSISTANT-PLASTIC DESIGN APPLIER [facility] 12-25-2021 14:18-0400 Body weight 65.4 kg CARMEN KAPPER CAPTAIN'S ASSISTANT-PLASTIC DESIGN APPLIER [facility] 12-25-2021 14:18-0400 Body weight 29.07 kg/m2 CARMEN HAIR CAPTAIN'S ASSISTANT-PLASTIC DESIGN APPLIER [facility] 12-25-2021 13:19-0400 Heart rate 69 /min CARMEN KINGOSMAN CAPTAIN'S ASSISTANT-PLASTIC DESIGN APPLIER [facility] 12-11-2021 19:48-0400 Body height 149.9 cm BALDOMERO DURESKA DO [facility] 12-11-2021 19:48-0400 Body temperature 98.06 [degF] BALDOMERO DURESKA DO [facility] 12-11-2021 19:48-0400 Body weight 63.6 kg BALDOMERO DURESKA DO [facility] 12-11-2021 19:48-0400 Diastolic blood pressure 86 mm[Hg] BALDOMERO DURESKA DO [facility] 12-11-2021 19:48-0400 Heart rate 90 /min BALDOMERO DURESKA DO [facility] 12-11-2021 19:48-0400 Respiratory rate 18 /min BALDOMERO DURESKA DO [facility] 12-11-2021 19:48-0400 Systolic blood pressure 140 mm[Hg] BALDOMERO DURESKA DO [facility] 10-20-2021 14:58-0400 Body temperature 98.42 [degF] KRYSTAL VALLADARES MD [facility] 10-20-2021 14:58-0400 Body weight 63.6 kg KRYSTAL VALLADARES MD [facility] 10-20-2021 14:58-0400 Diastolic blood pressure 80 mm[Hg] KRYSTAL VALLADARES MD [facility] 10-20-2021 14:58-0400 Heart rate 82 /min KRYSTAL VALLADARES MD [facility] 10-20-2021 14:58-0400 Respiratory rate 18 /min KRYSTAL VALLADARES MD [facility] 10-20-2021 14:58-0400 Systolic blood pressure 127 mm[Hg] KRYSTAL VALLADARES MD [facility] 08-01-2021 22:25-0400 Respiratory rate 18 /min TOMMY DISLAT DO [facility] 08-01-2021 21:52-0400 Body height 152.4 cm TOMMY FROMMELT DO [facility] 08-01-2021 21:52-0400 Body temperature 97.34 [degF] TOMMY DISLAT DO [facility] 08-01-2021 21:52-0400 Body weight 68.2 kg TOMMY FROMMELT DO [facility] 08-01-2021 21:52-0400 Diastolic blood pressure 84 mm[Hg] TOMMY FROMMELT DO [facility] 08-01-2021 21:52-0400 Heart rate 81 /min TOMMY DISLAT DO [facility] 08-01-2021 21:52-0400 Respiratory rate 16 /min TOMMY DISLAT DO [facility] 08-01-2021 21:52-0400 Systolic blood pressure 159 mm[Hg] TOMMY DISLAT DO [facility] 01-11-2017 15:29-0400 BMI (Body Mass Index) 26.48 kg/m2 [facility] Work Phone: 01-11-2017 15:29-0400 BP Diastolic 93 mm[Hg] [facility] Work Phone: 01-11-2017 15:29-0400 BP Systolic 133 mm[Hg] [facility] Work Phone: 01-11-2017 15:29-0400 Height 154.31 cm [facility] Work Phone: 01-11-2017 15:29-0400 Pulse (Heart Rate) 65 /min [facility] Work Phone: 01-11-2017 15:29-0400 Respiratory Rate 16 /min [facility] Work Phone: 01-11-2017 15:29-0400 Weight 63.05 kg [facility] Work Phone: 02-03-2011 10:14-0400 Body Temperature 97.8 [degF] [facility] Work Phone: Encounters Encounter Date Encounter Type Care Provider Facility Start: 11-05-2022 Telephone encounter Neftaly Coker MD Work Phone: Pain Management Procedures Date Procedure Procedure Detail Performing Clinician Start: 08-24-2018 Diagnostic endoscopi c examination of ovary TOMMY WOLFF DO Plan of Treatment Date Care Activity Detail Author Start: 01-15-2023 Influenza vaccination INFLUENZA (Season Ended) [facility] Start: 01-15-2022 Influenza vaccination [facility] Start: 07-30-2021 COVID-19 VACCINE (4 - Booster for Moderna series) COVID-19 VACCINE (4 - Booster for Moderna series) [facility] Start: 05-27-2021 COVID-19 VACCINE (4 - Booster for Moderna series) COVID-19 VACCINE (4 - Booster for Moderna series) [facility] Start: 02-14-2018 DIABETES SCREEN DIABETES SCREEN [facility] Start: 01-27-2017 End: 01-27-2017 Appointment Appointment [facility] [employer] Work Phone: Start: 01-11-2017 End: 01-11-2017 Diagnostic colonoscopy Colonoscopy [facility] [employer] Work Phone: Start: 01-11-2017 End: 01-12-2017 Follow Up Appt Other Follow Up Appt Other [facility] [employer] Work Phone: Start: 12-10-2016 HPV TESTING HPV TESTING [facility] Start: 12-10-2016 PAP TESTING PAP TESTING [facility] Start: 04-03-2015 End: 04-03-2015 Mri jnt of lwr extre w/o dye MRI Joint Lower Extremity [facility] [employer] Work Phone: Start: 04-03-2015 End: 04-03-2015 X-ray exam, knee, 4 or more X-Ray, Knee [facility] [employer] Work Phone: Start: 03-06-2014 LIPID SCREEN LIPID SCREEN [facility] Start: 02-21-2014 Mammography MAMMOGRAM [facility] Start: 01-15-2011 Colonoscopy COLONOSCOPY [facility] Start: 01-15-2011 COLORECTAL CANCER SCREENING COLORECTAL CANCER SCREENING [facility] Start: 2009 Influenza vaccination LUNG CANCER SCREENING [facility] Start: 2009 SHINGRIX VACCINE (1 of 2) SHINGRIX VACCINE (1 of 2) [facility] Start: 2004 COLOGUARD (FIT-DNA) COLOGUARD (FIT-DNA) [facility] Start: [address] COLONOGRAPHY [facility] Start: 2004 FECAL OCCULT BLOOD FECAL OCCULT BLOOD [facility] Start: 2004 SIGMOIDOSCOPY SIGMOIDOSCOPY [facility] Start: 02-15-2002 Urine microalbumin profile DTAP,TDAP,TD (1 - Tdap) [facility] Start: 1977 ANNUAL PCP TEAM CHRONIC DISEASE VISIT ANNUAL PCP TEAM CHRONIC DISEASE VISIT [facility] Start: 1977 HEPATITIS C SCREENING HEPATITIS C SCREENING [facility] Start: 1977 HIV SCREENING HIV SCREENING [facility] Start: 1977 SPIROMETRY SPIROMETRY [facility] Start: 1965 PNEUMOCOCCAL (1 - PCV) PNEUMOCOCCAL (1 - PCV) [facility] Start: 1964 COVID-19 VACCINE (#1) COVID-19 VACCINE (#1) [facility] Start: 1964 COVID-19 VACCINE (1) COVID-19 VACCINE (1) [facility] Start: 1959 COVID-19 VACCINE (#1) COVID-19 VACCINE (#1) [facility] Immunizations Immunization Date Immunization Notes Care Provider Fa cili 04-01-2021 influenza virus vacc ine, unspecified formulation CARMEN HAIR CAPTAIN'S ASSISTANT-PLASTIC DESIGN APPLIER [facility] 04-01-2021 pneumococcal polysaccharide vaccine, 23 valent CARMEN HAIR CAPTAIN'S ASSISTANT-PLASTIC DESIGN APPLIER [facility] 04-01-2021 SARS-CoV-2 (COVID-19 ) mRNA-1273 vaccine CARMEN HAIR CAPTAIN'S ASSISTANT-PLASTIC DESIGN APPLIER [facility] 11-15-2020 SARS-CoV-2 (COVID-19 ) mRNA-1273 vaccine CARMEN HAIR CAPTAIN'S ASSISTANT-PLASTIC DESIGN APPLIER [facility] 10-08-2020 SARS-CoV-2 (COVID-19 ) mRNA-1273 vaccine CARMEN KINGOSMNA CAPTAIN'S ASSISTANT-PLASTIC DESIGN APPLIER [facility] 05-29-2020 influenza virus vacc ine, unspecified formulation CARMEN KINGOSMAN CAPTAIN'S ASSISTANT-PLASTIC DESIGN APPLIER [facility] 05-29-2020 pneumococcal polysaccharide vaccine, 23 valent CARMENBlaine HAIR CAPTAIN'S ASSISTANT-PLASTIC DESIGN APPLIER [facility] 02-16-2018 influenza virus vacc ine, unspecified formulation CARMEN KINGOSMAN CAPTAIN'S ASSISTANT-PLASTIC DESIGN APPLIER [facility] 06-10-2017 influenza virus vacc ine, unspecified formulation CARMEN OLIVER CAPTAIN'S ASSISTANT-PLASTIC DESIGN APPLIER [facility] 02-14-2009 influenza virus vacc ine, unspecified formulation Nelsy Chaudhari PA-C Work Phone: [facility] Work Phone: 04-06-2007 influenza virus vacc ine, unspecified formulation Nelsy Chaudhari PA-C Work Phone: [facility] Work Phone: 02-14-2002 tetanus and diphther ia toxoids, adsorbed, preservative free, for adult use (2 Lf of tetanus toxoid and 2 Lf of diphtheria toxoid) Nelsy Chaudhari PA-C Work Phone: [facility] Work Phone: 02-14-2002 tetanus and diphther ia toxoids, adsorbed, preservative free, for adult use (5 Lf of tetanus toxoid and 2 Lf of diphtheria toxoid) TOMMY WOLFF DO [facility] Payers Date Payer Category Payer Medicaid [id number] [facility] MEDICAID [id number] 2021-Present [phone] [address] [place] [address] Medicaid [id number] 2021 Medicaid [id number] 2020 Medicare HUMANA MEDICARE HUMANA GOLD PLUS [id number] 2020-Present [phone] [address] [address] [place] [address] HMO [id number] 2020 Medicare HUMANA MEDICARE HUMANA GOLD PLUS [id number] 2020-Present [phone] [address] [address] [place] [address] HMO [id number] 2020 Private Health Insurance [id number] 2000 Medicare MEDICARE MEDICAR E A AND B [id number] 2000-Present [phone] [address] [address] [place] [address] Medicare [id number] Social History Date Type Detail Facility Start: 03-29-2019 Light tobacco smoker (finding) [facility] Sex Assigned At Female [facility] Start: 12-29-2021 End: 07-23-2022 Tobacco smoking status NHIS Smokes tobacco daily [facility] History of tobacco use Cigarette Smoker [facility] Start: 02-20-2015 End: 09-11-2022 Alcohol intake Current non-drinker of alcohol (finding) [facility] Start: 1960 Sex Assigned At Not on file [facility] Start: 10-04-2021 End: 03-23-2022 Exposure to SARS-CoV-2 (event) Not sure [facility] Start: 12-25-2021 Tobacco smoking status Heavy t obacco smoker (finding) [facility] Start: 12-29-2021 End: 07-23-2022 Cigarettes smoked current (pack per day) - Reported 1 [facility] Start: 12-29-2021 End: 07-23-2022 Tobacco use and exposure Smokeless tobacco non-user [facility] Functional Status Date Assessment Result Facility 12-26-2021 Functional Status bilateral knee high [facility] 12-26-2021 Functional Status Independent [facility] 12-26-2021 Functional Status Apartment [facility] 12-26-2021 Functional Status [facility] 12-26-2021 Functional Status [facility] 12-26-2021 Functional Status Demonstrates C orrect Call Light Use Yes [facility] 12-25-2021 Functional Status Moderate assistance [facility] 12-25-2021 Functional Status Dinner Percent 20 [facility] 12-25-2021 Functional Status Independent [facility] 12-25-2021 Functional Status Sensory Deficits None [facility] 12-25-2021 Functional Status Environmental Safety Implemented Adequate room lighting, Bed in low position, Call device within reach [facility] 12-25-2021 Functional Status [facility] 12-11-2021 Functional Status Ambulating in guerrero, Ambulating in room, Awake [facility] 12-11-2021 Functional Status Standard Safet y ID band on, Allergy Band on, Call device within reach, Bed in low position, Wheels locked, Upper/Half-Length side-rails up, personal items within reach, Visitor at bedside [facility] 10-20-2021 Functional Status Standard Safet y ID band on, Allergy Band on, Call device within reach, Bed in low position, Wheels locked, Upper/Half-Length side-rails up, Bedside Cart Locked, Safety level maintained [facility] Mental Status Date Assessment Result Facility 12-26-2021 Mental Status Oriented x 4 [facility] 12-26-2021 [facility] 12-26-2021 Mental Status [facility] 12-26-2021 Mental Status [facility] 12-11-2021 Mental Status Orientation Oriented x 4 [facility] 12-11-2021 Mental Status [facility] 10-20-2021 Mental Status Orientation Oriented x 4 [facility] Clinical Notes 05-19-2007 to 11-05-2022 Telephone Encounter - Nelsy Chaudhari PA-C - 11/05/2022 1:55 PM EDTTelephone Encounter - Liliana Shah RN - 11/05/2022 1:51 PM EDTTelephone Encounter - Liliana Shah RN - 10/20/2022 2:54 PM EDT Note Date & Type Note Facility 11-05-2022 Miscellaneous Notes Noted. Navin called to let us know that she is doing well without fentanyl patch and is not having pain at present She is pleased she no longer needs pain management and wanted to thank us for past treatment I did let her know to call us if she would need an appointment in the future Liliana Shah RN documented in this encounter [facility] 10-20-2022 Miscellaneous Notes The following approved medication requests have been transmitted electronically. Requested Prescriptions Pending Prescriptions Disp Refills fentaNYL (DURAGESIC) 25 mcg/hr 15 Patch 0 Sig: Apply 1 Patch as directed every 48 hours for 30 days. Do not start before October 22, 2022. Nelsy Chaudhari PA-C Patient phones requesting refills as follows: Requested Prescriptions Pending Prescriptions Disp Refills fentaNYL (DURAGESIC) 25 mcg/hr 15 Patch 0 Sig: Apply 1 Patch as directed every 48 hours for 30 days. Do not start before October 22, 2022. Please review and advise. Liliana Shah RN documented in this encounter [facility] 10-19-2022 Miscellaneous Notes The following approved medication requests have been transmitted electronically. Requested Prescriptions Pending Prescriptions Disp Refills methocarbamol (ROBAXIN) 500 mg tablet [Pharmacy Med Name: METHOCARBAMOL 500 MG TABLET] 90 tablet 3 Sig: TAKE 1 TABLET BY MOUTH THREE TIMES A DAY NEEDED Nelsy Chaudhari PA-C Requested Prescriptions Pending Prescriptions Disp Refills methocarbamol (ROBAXIN) 500 mg tablet [Pharmacy Med Name: METHOCARBAMOL 500 MG TABLET] 90 tablet 3 Sig: TAKE 1 TABLET BY MOUTH THREE TIMES A DAY NEEDED Please review and advise. Liliana Shah RN documented in this encounter [facility] 09-11-2022 Note HNO ID: [id number] Author: Nelsy Chaudhari PA-C Service: ? Author Type: Physician Professor Of Engineering Type: Progress Notes Filed: 09/11/2022 2:24 PM Note Text: This note was created using [email or web address]. Subjective Navin August is a 62 year old female. The patient primarily being seen for neck, back pain Patient was last seen on: 07/23/22 At that time, the treatment plan was: see notes Current Meds: Fentanyl Patch yest/ Robaxin last pm Efficacy: helpful Side effects: memory loss TENS unit: How often used: Benefit: Physical Therapy: Last UDS: 07/27/22 Last injection: OARRS reviewed At the present time, the patient reports benefit with her present analgesic therapy. She has some issues with memory loss with the medications. Since her previous visit, she denies any hospitalizations or ER visits. She would like to do physical therapy and needs an order. INTAKE PAIN ASSESSMENT 09/11/2022 09/11/2022 Are you having pain associated with your visit today? Yes, Provider notified Yes, Provider notified Pain Scales Verbal (Numeric Rating or Visual Analog Scale) Verbal (Numeric Rating or Visual Analog Scale) Pain Level 8 8 Pain Location Neck Back-Lower Description Dull;Stabbing Dull;Stabbing Duration Amount of Time - - Duration Units - - Frequency Continuous Continuous Intervention/Comfort measure Medication;Relaxation;Cold;Heat Medication;Relaxation;Cold;Heat; Pillow support;Positioning Comments - - PAST MEDICAL HISTORY Diagnosis Date Anxiety state Asthma Bipolar I disorder, most recent episode (or current) unspecified Chronic back pain Depression Headache(784.0) Hypothyroidism Lumbago Myalgia and myositis, unspecified Other and unspecified alcohol dependence, unspecified drinking behavior ETOH depend. syn. Other and unspecified hyperlipidemia 01/15/2010 Other extrapyramidal disease and abnormal movement disorder Other, mixed, or unspecified nondependent drug abuse, unspecified Drug /ETOH abuse (non-depend.) Tobacco use disorder 01/15/2010 PAST SURGICAL HISTORY Procedure Laterality Date CARPAL TUNNEL RIGHT WRIST 05/17/2002 COLONOSCOPY SCREENING EXPLORATORY OF ABDOMEN 2019 On her ovaries PAST SURGICAL HISTORY OF 05/17/1992 Social History Tobacco Use Smoking status: Every Day Packs/day: 0.50 Years: 30.00 Pack years: 15.00 Types: Cigarettes Smokeless tobacco: Never Substance Use Topics Alcohol use: No Drug use: No HPI Review of Systems Constitutional: Negative for fever and unexpected weight change. Musculoskeletal: + neck pain, back pain, joint pain/swelling, arthritis, restless legs, and leg pain with exertion. Objective BP 141/96 (BP Site: Left Arm, BP Position: Sitting, BP Cuff Size: Regular Adult) Pulse 93 Temp 36.3 ?C (97.4 ?F) (Temporal) Resp 18 LMP 01/12/2008 SpO2 96% Physical Exam Vitals and nursing note reviewed. Constitutional: Appearance: Normal appearance. She is well-developed, well-groomed and overweight. HENT: Head: Normocephalic and atraumatic. Right Ear: Hearing normal. Left Ear: Hearing normal. Eyes: Conjunctiva/sclera: Conjunctivae normal. Comments: Wearing glasses Musculoskeletal: Comments: She walks with a normal gait. There is tenderness to palpation in the cervical and lumbar region and over the SI joints bilaterally. The patient has multiple fibromyalgia tender points noted throughout the examination. Strength is 5/5 throughout. Sensation is intact to light touch throughout. SLR is negative. She has tenderness to palpation in the knees bilaterally with crepitus noted. Neurological: Mental Status: She is alert and oriented to person, place, and time. Psychiatric: Attention and Perception: Attention and perception normal. Mood and Affect: Mood and affect normal. Speech: Speech normal. Behavior: Behavior normal. Behavior is cooperative. Thought Content: Thought content normal. Judgment: Judgment normal. Assessment and Plan ASSESSMENT/PLAN: 1. Degeneration of intervertebral disc of lumbar region - ICD9: 722.52, ICD10: M51.36 (primary diagnosis) The OARRS report has been reviewed and is consistent with the patients medical history and medication intake. The patient's most recent urine drug screen has been reviewed and was positive for marijuana. I explained to the patient that any further violations of the opioid agreement and she will be made no narcotics and she states that she understands. The patient will continue with the fentanyl patch and methocarbamol. Decrease the fentanyl to 25 mcg to help with the patient and Dr. Evans desire for her to get off of this. Continue using TENS unit as needed Continue with core strengthening and range of motion exercises We again discussed the importance of quitting smoking. Continue with the nicotine patches. Monitor your blood pressure with your family doctor - BP 141/96 Follow-up in office in (more content not included)... [facility] 08-12-2022 Miscellaneous Notes The following approved medication requests have been transmitted electronically. Requested Prescriptions Pending Prescriptions Disp Refills fentaNYL 37.5 mcg/hour pt72 15 Patch 0 Sig: Apply 1 Patch as directed every 48 hours for 30 days. Do not start before August 18, 2022. Nelsy Chaudhari PA-C documented in this encounter [facility] 07-27-2022 Miscellaneous Notes Arrived for UDS Completed In addition, brought fentanyl 50 mcg patches for count ( see AG SPINE PAIN COUNT) Count appropriate Liliana Shah RN July 27, 2022 2:00 PM documented in this encounter [facility] 07-23-2022 Note HNO ID: [id number] Author: Nelsy Chaudhari PA-C Service: ? Author Type: Physician Professor Of Engineering Type: Progress Notes Filed: 07/23/2022 2:48 PM Note Text: I have communicated my name and active licensure. The patient's identity and physical location were verified at the time of this visit. Either the patient or their legal motor vehicle representative has been informed of the risks and benefits of -- and alternatives to -- treatment through a remote evaluation and consents to proceed with the evaluation remotely. This note was created using [employer]. Subjective Navin August is a 62 year old female. The patient primarily being seen for neck, back pain Patient was last seen on: 06/11/22 At that time, the treatment plan was: see notes Current Meds: Fentanyl Patch - last applied 2 days ago, - would like to decrease dose so she can get off of it, Robaxin - this afternoon Efficacy: help the pain half the time Side effects: memory loss TENS unit: yes - doesn't use How often used: Benefit: Physical Therapy: years ago Last UDS: 02/09/22 - was told to come to office for UDS Last injection: none OARRS reviewed At the present time, the patient reports benefit with her present analgesic therapy. She has some issues with memory loss from the medication. Since her previous visit, she denies any hospitalizations or ER visits. She has been on nicotine patches for 2 days now. INTAKE PAIN ASSESSMENT 07/23/2022 07/23/2022 Are you having pain associated with your visit today? Yes, Provider notified Yes, Provider notified Pain Scales - Verbal (Numeric Rating or Visual Analog Scale) Pain Level 5 5 Pain Location Back Back Description Aching;Burning;Dull Aching;Burning;Dull Duration Amount of Time 84 - Duration Units Months - Frequency Intermittent Intermittent Intervention/Comfort measure Medication;Cold;Heat;Music;Rocki ng/holding Medication;Cold;Heat;Relaxation Comments - - PAST MEDICAL HISTORY Diagnosis Date Anxiety state Asthma Bipolar I disorder, most recent episode (or current) unspecified Chronic back pain Depression Headache(784.0) Hypothyroidism Lumbago Myalgia and myositis, unspecified Other and unspecified alcohol dependence, unspecified drinking behavior ETOH depend. syn. Other and unspecified hyperlipidemia 01/15/2010 Other extrapyramidal disease and abnormal movement disorder Other, mixed, or unspecified nondependent drug abuse, unspecified Drug /ETOH abuse (non-depend.) Tobacco use disorder 01/15/2010 PAST SURGICAL HISTORY Procedure Laterality Date CARPAL TUNNEL RIGHT WRIST 05/17/2002 COLONOSCOPY SCREENING EXPLORATORY OF ABDOMEN 2019 On her ovaries PAST SURGICAL HISTORY OF 05/17/1992 Social History Tobacco Use Smoking status: Every Day Packs/day: 0.50 Years: 30.00 Pack years: 15.00 Types: Cigarettes Smokeless tobacco: Never Substance Use Topics Alcohol use: No Drug use: No HPI Review of Systems Constitutional: Negative for fever and unexpected weight change. Musculoskeletal: + neck pain, back pain, joint pain/swelling, arthritis, restless legs, and leg pain with exertion. Objective LMP 01/12/2008 Physical Exam Vitals and nursing note reviewed. Constitutional: Appearance: Normal appearance. She is well-developed, well-groomed and overweight. HENT: Head: Normocephalic and atraumatic. Right Ear: Hearing normal. Left Ear: Hearing normal. Eyes: Conjunctiva/sclera: Conjunctivae normal. Comments: Wearing glasses Musculoskeletal: Comments: Normal posture, cervical ROM is intact. Neurological: Mental Status: She is alert and oriented to person, place, and time. Psychiatric: Attention and Perception: Attention and perception normal. Mood and Affect: Mood and affect normal. Speech: Speech normal. Behavior: Behavior normal. Behavior is cooperative. Thought Content: Thought content normal. Judgment: Judgment normal. Assessment and Plan ASSESSMENT/PLAN: 1. Fibromyalgia - ICD9: 729.1, ICD10: M79.7 (primary diagnosis) The OARRS report has been reviewed and is consistent with the patients medical history and medication intake. The patient was informed that she needs to be in by the end of the day on Wednesday before 4:30 to provide a urine sample, otherwise we will be unable to continue prescribing the narcotic pain medications for her. The patient states she does not think she will be able to make it. The patient will continue with the fentanyl patch and methocarbamol. We will decrease to the 37.5 mcg dose on the next refill in August Continue using TENS unit as needed Continue with core strengthening and range of motion exercises We again discussed the importance of quitting smoking. Continue with the nicotine patches. We will address her knee issue once she gets the knee x-ray done. She is not having as much issue with this right now and will let us know when she would like a new order (more content not included)... [facility] 07-23-2022 Instructions Nelsy Chaudhari PA-C - 07/23/2022 2:28 PM EST The OARRS report has been reviewed and is consistent with the patients medical history and medication intake. The patient was informed that she needs to be in by the end of the day on Wednesday before 4:30 to provide a urine sample, otherwise we will be unable to continue prescribing the narcotic pain medications for her. The patient states she does not think she will be able to make it. The patient will continue with the fentanyl patch and methocarbamol. We will decrease to the 37.5 mcg dose on the next refill in August Continue using TENS unit as needed Continue with core strengthening and range of motion exercises We again discussed the importance of quitting smoking. Continue with the nicotine patches. We will address her knee issue once she gets the knee x-ray done. She is not having as much issue with this right now and will let us know when she would like a new order for the xray. Follow-up in office in 6 weeks time. I discussed the patient with Dr. Coker who agrees with my assessment and plan. All of the above is to improve functionality and quality of life. No evidence of drug abuse or diversion is seen at this time. documented in this encounter [facility] 07-23-2022 History of Presen t illness Narrative I have communicated my name and active licensure. The patient's identity and physical location were verified at the time of this visit. Either the patient or their legal motor vehicle representative has been informed of the risks and benefits of -- and alternatives to -- treatment through a remote evaluation and consents to proceed with the evaluation remotely. This note was created using [employer]. Subjective Navin August is a 62 year old female. The patient primarily being seen for neck, back pain Patient was last seen on: 06/11/22 At that time, the treatment plan was: see notes Current Meds: Fentanyl Patch - last applied 2 days ago, - would like to decrease dose so she can get off of it, Robaxin - this afternoon Efficacy: help the pain half the time Side effects: memory loss TENS unit: yes - doesn't use How often used: Benefit: Physical Therapy: years ago Last UDS: 02/09/22 - was told to come to office for UDS Last injection: none OARRS reviewed At the present time, the patient reports benefit with her present analgesic therapy. She has some issues with memory loss from the medication. Since her previous visit, she denies any hospitalizations or ER visits. She has been on nicotine patches for 2 days now. INTAKE PAIN ASSESSMENT 07/23/2022 07/23/2022 Are you having pain associated with your visit today? Yes, Provider notified Yes, Provider notified Pain Scales - Verbal (Numeric Rating or Visual Analog Scale) Pain Level 5 5 Pain Location Back Back Description Aching;Burning;Dull Aching;Burning;Dull Duration Amount of Time 84 - Duration Units Months - Frequency Intermittent Intermittent Intervention/Comfort measure Medication;Cold;Heat;Music;Rocki ng/holding Medication;Cold;Heat;Relaxation Comments - - PAST MEDICAL HISTORY Diagnosis Date Anxiety state Asthma Bipolar I disorder, most recent episode (or current) unspecified Chronic back pain Depression Headache(784.0) Hypothyroidism Lumbago Myalgia and myositis, unspecified Other and unspecified alcohol dependence, unspecified drinking behavior ETOH depend. syn. Other and unspecified hyperlipidemia 01/15/2010 Other extrapyramidal disease and abnormal movement disorder Other, mixed, or unspecified nondependent drug abuse, unspecified Drug /ETOH abuse (non-depend.) Tobacco use disorder 01/15/2010 PAST SURGICAL HISTORY Procedure Laterality Date CARPAL TUNNEL RIGHT WRIST 05/17/2002 COLONOSCOPY SCREENING EXPLORATORY OF ABDOMEN 2019 On her ovaries PAST SURGICAL HISTORY OF 05/17/1992 Social History Tobacco Use Smoking status: Every Day Packs/day: 0.50 Years: 30.00 Pack years: 15.00 Types: Cigarettes Smokeless tobacco: Never Substance Use Topics Alcohol use: No Drug use: No HPI Review of Systems Constitutional: Negative for fever and unexpected weight change. Musculoskeletal: + neck pain, back pain, joint pain/swelling, arthritis, restless legs, and leg pain with exertion. Objective LMP 01/12/2008 Physical Exam Vitals and nursing note reviewed. Constitutional: Appearance: Normal appearance. She is well-developed, well-groomed and overweight. HENT: Head: Normocephalic and atraumatic. Right Ear: Hearing normal. Left Ear: Hearing normal. Eyes: Conjunctiva/sclera: Conjunctivae normal. Comments: Wearing glasses Musculoskeletal: Comments: Normal posture, cervical ROM is intact. Neurological: Mental Status: She is alert and oriented to person, place, and time. Psychiatric: Attention and Perception: Attention and perception normal. Mood and Affect: Mood and affect normal. Speech: Speech normal. Behavior: Behavior normal. Behavior is cooperative. Thought Content: Thought content normal. Judgment: Judgment normal. Assessment and Plan ASSESSMENT/PLAN: 1. Fibromyalgia - ICD9: 729.1, ICD10: M79.7 (primary diagnosis) The OARRS report has been reviewed and is consistent with the patients medical history and medication intake. The patient was informed that she needs to be in by the end of the day on Wednesday before 4:30 to provide a urine sample, otherwise we will be unable to continue prescribing the narcotic pain medications for her. The patient states she does not think she will be able to make it. The patient will continue with the fentanyl patch and methocarbamol. We will decrease to the 37.5 mcg dose on the next refill in August Continue using TENS unit as needed Continue with core strengthening and range of motion exercises We again discussed the importance of quitting smoking. Continue with the nicotine patches. We will address her knee issue once she gets the knee x-ray done. She is not having as much issue with this right now and will let us know when she would like a new order for the xray. Follow-up in office in 6 weeks time. (Two stable chronic illnesses/prescription drug management) 2. Degeneration of intervertebral disc of lumbar region - ICD9: 722.52, ICD10: M51.36 - FENTANYL 37.5 MCG/HOUR TRANSDERMAL PATCH 3. Lumbar spondylosis - ICD9: 721.3, ICD10: M47.816 4. Degeneration of cervical intervertebral disc - ICD9: 722.4, ICD10: M50.30 5. Sacroiliitis (HCC) - ICD9: 720.2, ICD10: M46.1 6. Chronic knee pain, unspecified laterality - ICD9: 719.46, 338.29, ICD10: M25.569, G89.29 Nelsy Chaudhari PA-C documented in this encounter [facility] 07-15-2022 Miscellaneous Notes The following approved medication requests have been transmitted electronically. Requested Prescriptions Pending Prescriptions Disp Refills fentaNYL (DURAGESIC) 50 mcg/hr 15 Patch 0 Sig: APPLY 1 PATCH TO SKIN EVERY OTHER DAY DIRECTED Do not start before July 19, 2022. Nelsy Chaudhari PA-C Patient phones requesting refills as follows: Requested Prescriptions Pending Prescriptions Disp Refills fentaNYL (DURAGESIC) 50 mcg/hr 15 Patch 0 Sig: APPLY 1 PATCH TO SKIN EVERY OTHER DAY DIRECTED Do not start before July 19, 2022. Please review and advise. Liliana Shah RN documented in this encounter [facility] 06-11-2022 Note HNO ID: [id number] Author: Nelsy Chaudhari PA-C Service: ? Author Type: Physician Professor Of Engineering Type: Progress Notes Filed: 06/11/2022 2:22 PM Note Text: This note was created using [employer]. Subjective Navin August is a 62 year old female. The patient primarily being seen for neck, back pain Patient was last seen on: 05/04/22 At that time, the treatment plan was: see notes Current Meds: Fentanyl Patch - last applied this am, Robaxin - last pm Efficacy: help a little bit Side effects: none TENS unit: yes - hasn't used, has recently moved and has to locate it How often used: Benefit: Physical Therapy: years ago Last UDS: 02/09/22 Last injection: none OARRS reviewed At the present time, the patient reports some benefit with her present analgesic therapy. She denies any adverse effects. Since her previous visit, she denies any hospitalizations or ER visits. She is having issues with confusion and is seeing her PCP on Wednesday. They had her stop her clonazepam for 2 weeks, but this hasn't helped. INTAKE PAIN ASSESSMENT 06/11/2022 06/11/2022 Are you having pain associated with your visit today? No Yes, Provider notified Pain Scales - Verbal (Numeric Rating or Visual Analog Scale) Pain Level - 5 Pain Location - Neck Description - Aching;Dull Duration Amount of Time - - Duration Units - Years Frequency - Intermittent Intervention/Comfort measure - Medication;Cold;Heat Comments - - PAST MEDICAL HISTORY Diagnosis Date Anxiety state Asthma Bipolar I disorder, most recent episode (or current) unspecified Chronic back pain Depression Headache(784.0) Hypothyroidism Lumbago Myalgia and myositis, unspecified Other and unspecified alcohol dependence, unspecified drinking behavior ETOH depend. syn. Other and unspecified hyperlipidemia 01/15/2010 Other extrapyramidal disease and abnormal movement disorder Other, mixed, or unspecified nondependent drug abuse, unspecified Drug /ETOH abuse (non-depend.) Tobacco use disorder 01/15/2010 PAST SURGICAL HISTORY Procedure Laterality Date CARPAL TUNNEL RIGHT WRIST 05/17/2002 COLONOSCOPY SCREENING EXPLORATORY OF ABDOMEN 2019 On her ovaries PAST SURGICAL HISTORY OF 05/17/1992 Social History Tobacco Use Smoking status: Every Day Packs/day: 1.00 Years: 30.00 Pack years: 30.00 Types: Cigarettes Smokeless tobacco: Never Substance Use Topics Alcohol use: No Drug use: No HPI Review of Systems Constitutional: Negative for fever and unexpected weight change. Musculoskeletal: + neck pain, back pain, joint pain/swelling, muscle cramps/weakness, stiffness, arthritis, restless legs, leg pain at night, and leg pain with exertion. Objective LMP 01/12/2008 Physical Exam Vitals and nursing note reviewed. Constitutional: Appearance: Normal appearance. She is well-developed, well-groomed and overweight. HENT: Head: Normocephalic and atraumatic. Right Ear: Hearing normal. Left Ear: Hearing normal. Eyes: Conjunctiva/sclera: Conjunctivae normal. Comments: Wearing glasses Musculoskeletal: Comments: Normal posture, cervical ROM is intact. Neurological: Mental Status: She is alert and oriented to person, place, and time. Psychiatric: Attention and Perception: Attention and perception normal. Mood and Affect: Mood and affect normal. Speech: Speech normal. Behavior: Behavior normal. Behavior is cooperative. Thought Content: Thought content normal. Judgment: Judgment normal. Assessment and Plan ASSESSMENT/PLAN: 1. Degeneration of cervical intervertebral disc - ICD9: 722.4, ICD10: M50.30 (primary diagnosis) The OARRS report has been reviewed and is consistent with the patients medical history and medication intake. The patient will continue with the fentanyl patch and methocarbamol. She will let us know when she is ready to try a lower dose of the fentanyl patch. See if you can find your TENS unit. Continue with core strengthening and range of motion exercises We again discussed the importance of quitting smoking. We will address her knee issues once she gets the knee x-rays done. She will let us know when she is ready to have a left knee xray ordered. Follow-up in office in 6 weeks time. - FENTANYL 50 MCG/HR TRANSDERMAL PATCH 2. Fibromyalgia - ICD9: 729.1, ICD10: M79.7 3. Degeneration of intervertebral disc of lumbar region - ICD9: 722.52, ICD10: M51.36 4. Lumbar spondylosis - ICD9: 721.3, ICD10: M47.816 5. Sacroiliitis (HCC) - ICD9: 720.2, ICD10: M46.1 6. Chronic knee pain, unspecified laterality - ICD9: 719.46, 338.29, ICD10: M25.569, G89.29 Nelsy Chaudhari PA-C [facility] 06-11-2022 Instructions Nelsy Chaudhari PA-C - 06/11/2022 2:13 PM EST The OARRS report has been reviewed and is consistent with the patients medical history and medication intake. The patient will continue with the fentanyl patch and methocarbamol. She will let us know when she is ready to try a lower dose of the fentanyl patch. See if you can find your TENS unit. Continue with core strengthening and range of motion exercises We again discussed the importance of quitting smoking. We will address her knee issues once she gets the knee x-rays done. She will let us know when she is ready to have a left knee xray ordered. Follow-up in office in 6 weeks time. I discussed the patient with Dr. Coker who agrees with my assessment and plan. All of the above is to improve functionality and quality of life. No evidence of drug abuse or diversion is seen at this time. documented in this encounter [facility] 06-11-2022 History of Presen t illness Narrative This note was created using [employer]. Subjective Navin August is a 62 year old female. The patient primarily being seen for neck, back pain Patient was last seen on: 05/04/22 At that time, the treatment plan was: see notes Current Meds: Fentanyl Patch - last applied this am, Robaxin - last pm Efficacy: help a little bit Side effects: none TENS unit: yes - hasn't used, has recently moved and has to locate it How often used: Benefit: Physical Therapy: years ago Last UDS: 02/09/22 Last injection: none OARRS reviewed At the present time, the patient reports some benefit with her present analgesic therapy. She denies any adverse effects. Since her previous visit, she denies any hospitalizations or ER visits. She is having issues with confusion and is seeing her PCP on Wednesday. They had her stop her clonazepam for 2 weeks, but this hasn't helped. INTAKE PAIN ASSESSMENT 06/11/2022 06/11/2022 Are you having pain associated with your visit today? No Yes, Provider notified Pain Scales - Verbal (Numeric Rating or Visual Analog Scale) Pain Level - 5 Pain Location - Neck Description - Aching;Dull Duration Amount of Time - - Duration Units - Years Frequency - Intermittent Intervention/Comfort measure - Medication;Cold;Heat Comments - - PAST MEDICAL HISTORY Diagnosis Date Anxiety state Asthma Bipolar I disorder, most recent episode (or current) unspecified Chronic back pain Depression Headache(784.0) Hypothyroidism Lumbago Myalgia and myositis, unspecified Other and unspecified alcohol dependence, unspecified drinking behavior ETOH depend. syn. Other and unspecified hyperlipidemia 01/15/2010 Other extrapyramidal disease and abnormal movement disorder Other, mixed, or unspecified nondependent drug abuse, unspecified Drug /ETOH abuse (non-depend.) Tobacco use disorder 01/15/2010 PAST SURGICAL HISTORY Procedure Laterality Date CARPAL TUNNEL RIGHT WRIST 05/17/2002 COLONOSCOPY SCREENING EXPLORATORY OF ABDOMEN 2019 On her ovaries PAST SURGICAL HISTORY OF 05/17/1992 Social History Tobacco Use Smoking status: Every Day Packs/day: 1.00 Years: 30.00 Pack years: 30.00 Types: Cigarettes Smokeless tobacco: Never Substance Use Topics Alcohol use: No Drug use: No HPI Review of Systems Constitutional: Negative for fever and unexpected weight change. Musculoskeletal: + neck pain, back pain, joint pain/swelling, muscle cramps/weakness, stiffness, arthritis, restless legs, leg pain at night, and leg pain with exertion. Objective LMP 01/12/2008 Physical Exam Vitals and nursing note reviewed. Constitutional: Appearance: Normal appearance. She is well-developed, well-groomed and overweight. HENT: Head: Normocephalic and atraumatic. Right Ear: Hearing normal. Left Ear: Hearing normal. Eyes: Conjunctiva/sclera: Conjunctivae normal. Comments: Wearing glasses Musculoskeletal: Comments: Normal posture, cervical ROM is intact. Neurological: Mental Status: She is alert and oriented to person, place, and time. Psychiatric: Attention and Perception: Attention and perception normal. Mood and Affect: Mood and affect normal. Speech: Speech normal. Behavior: Behavior normal. Behavior is cooperative. Thought Content: Thought content normal. Judgment: Judgment normal. Assessment and Plan ASSESSMENT/PLAN: 1. Degeneration of cervical intervertebral disc - ICD9: 722.4, ICD10: M50.30 (primary diagnosis) The OARRS report has been reviewed and is consistent with the patients medical history and medication intake. The patient will continue with the fentanyl patch and methocarbamol. She will let us know when she is ready to try a lower dose of the fentanyl patch. See if you can find your TENS unit. Continue with core strengthening and range of motion exercises We again discussed the importance of quitting smoking. We will address her knee issues once she gets the knee x-rays done. She will let us know when she is ready to have a left knee xray ordered. Follow-up in office in 6 weeks time. - FENTANYL 50 MCG/HR TRANSDERMAL PATCH 2. Fibromyalgia - ICD9: 729.1, ICD10: M79.7 3. Degeneration of intervertebral disc of lumbar region - ICD9: 722.52, ICD10: M51.36 4. Lumbar spondylosis - ICD9: 721.3, ICD10: M47.816 5. Sacroiliitis (HCC) - ICD9: 720.2, ICD10: M46.1 6. Chronic knee pain, unspecified laterality - ICD9: 719.46, 338.29, ICD10: M25.569, G89.29 Nelsy Chaudhari PA-C documented in this encounter [facility] 05-14-2022 Miscellaneous Notes The following approved medication requests have been transmitted electronically. Requested Prescriptions Pending Prescriptions Disp Refills fentaNYL (DURAGESIC) 50 mcg/hr 15 Patch 0 Sig: APPLY 1 PATCH TO SKIN EVERY OTHER DAY DIRECTED Do not start before May 20, 2022. Nelsy Chaudhari PA-C Patient phones requesting refills as follows: Requested Prescriptions Pending Prescriptions Disp Refills fentaNYL (DURAGESIC) 50 mcg/hr 15 Patch 0 Sig: APPLY 1 PATCH TO SKIN EVERY OTHER DAY DIRECTED Do not start before May 20, 2022. Please review and advise. Liliana Shah RN documented in this encounter [facility] 05-04-2022 Note HNO ID: [id number] Author: Nelsy Chaudhari PA-C Service: ? Author Type: Physician Professor Of Engineering Type: Progress Notes Filed: 05/04/2022 3:11 PM Note Text: This note was created using [employer]. Subjective Navin August is a 62 year old female. The patient primarily being seen for neck, back pain Patient was last seen on: 03/23/22 At that time, the treatment plan was: see notes Current Meds: Fentanyl Patch am/ Robaxin today Efficacy: helpful Side effects: denies TENS unit: yes How often used: lost Benefit: Physical Therapy: Last UDS: 02/09/22 Last injection: OARRS reviewed At the present time, the patient reports benefit with her present analgesic therapy. She denies any adverse effects. Since her previous visit, she denies any hospitalizations or ER visits. Otherwise, she has nothing further to discuss at this time. INTAKE PAIN ASSESSMENT 05/04/2022 05/04/2022 Are you having pain associated with your visit today? Yes, Provider notified Yes, Provider notified Pain Scales Verbal (Numeric Rating or Visual Analog Scale) Verbal (Numeric Rating or Visual Analog Scale) Pain Level 2 2 Pain Location Neck Back-Lower Description Aching Burning Duration Amount of Time - - Duration Units Hours Hours Frequency Intermittent Intermittent Intervention/Comfort measure Medication;Relaxation;Cold;Heat Medication;Relaxation;Cold;Heat; Pillow support Comments - - PAST MEDICAL HISTORY Diagnosis Date Anxiety state Asthma Bipolar I disorder, most recent episode (or current) unspecified Chronic back pain Depression Headache(784.0) Hypothyroidism Lumbago Myalgia and myositis, unspecified Other and unspecified alcohol dependence, unspecified drinking behavior ETOH depend. syn. Other and unspecified hyperlipidemia 01/15/2010 Other extrapyramidal disease and abnormal movement disorder Other, mixed, or unspecified nondependent drug abuse, unspecified Drug /ETOH abuse (non-depend.) Tobacco use disorder 01/15/2010 PAST SURGICAL HISTORY Procedure Laterality Date CARPAL TUNNEL RIGHT WRIST 05/17/2002 COLONOSCOPY SCREENING EXPLORATORY OF ABDOMEN 2019 On her ovaries PAST SURGICAL HISTORY OF 05/17/1992 Social History Tobacco Use Smoking status: Every Day Packs/day: 1.00 Years: 30.00 Pack years: 30.00 Types: Cigarettes Smokeless tobacco: Never Substance Use Topics Alcohol use: No Drug use: No HPI Review of Systems Constitutional: Negative for fever and unexpected weight change. Musculoskeletal: + neck pain, back pain, joint pain/swelling, muscle cramps, stiffness, arthritis, restless legs and leg pain with exertion. Objective LMP 01/12/2008 Physical Exam Vitals and nursing note reviewed. Constitutional: Appearance: Normal appearance. She is well-developed, well-groomed and overweight. HENT: Head: Normocephalic and atraumatic. Right Ear: Hearing normal. Left Ear: Hearing normal. Eyes: Conjunctiva/sclera: Conjunctivae normal. Comments: Wearing glasses Musculoskeletal: Comments: She walks with a normal gait. There is tenderness to palpation in the cervical and lumbar region and over the SI joints bilaterally. The patient has multiple fibromyalgia tender points noted throughout the examination. Strength is 5/5 throughout. Sensation is intact to light touch throughout. SLR is negative. She has tenderness to palpation in the knees bilaterally with crepitus noted. Neurological: Mental Status: She is alert and oriented to person, place, and time. Psychiatric: Attention and Perception: Attention and perception normal. Mood and Affect: Mood and affect normal. Speech: Speech normal. Behavior: Behavior normal. Behavior is cooperative. Thought Content: Thought content normal. Judgment: Judgment normal. Assessment and Plan ASSESSMENT/PLAN: 1. Fibromyalgia - ICD9: 729.1, ICD10: M79.7 (primary diagnosis) The OARRS report has been reviewed and is consistent with the patients medical history and medication intake. The patient will continue with the fentanyl patch and methocarbamol. She will let us know when she is ready to try a lower dose of the fentanyl patch. See if you can find your TENS unit. Continue with core strengthening and range of motion exercises We again discussed the importance of quitting smoking. We will address her knee issues once she gets the knee x-rays done. She will let us know when she is ready to have a left knee xray ordered. Follow-up in office in 6 weeks time. - METHOCARBAMOL 500 MG TABLET 2. Degeneration of intervertebral disc of lumbar region - ICD9: 722.52, ICD10: M51.36 3. Lumbar spondylosis - ICD9: 721.3, ICD10: M47.816 4. Sacroiliitis (HCC) - ICD9: 720.2, ICD10: M46.1 5. Degeneration of intervertebral disc of cervical region - ICD9: 722.4, ICD10: M50.30 6. Chronic knee pain, unspecified laterality - ICD9: 719.46, 338.29, ICD10: M25.569, G89.29 Nelsy Rutherford (more content not included)... [facility] 05-04-2022 Instructions Nelsy Chaudhari PA-C - 05/04/2022 2:56 PM EST The OARRS report has been reviewed and is consistent with the patients medical history and medication intake. The patient will continue with the fentanyl patch and methocarbamol. She will let us know when she is ready to try a lower dose of the fentanyl patch. See if you can find your TENS unit. Continue with core strengthening and range of motion exercises We again discussed the importance of quitting smoking. We will address her knee issues once she gets the knee x-rays done. She will let us know when she is ready to have a left knee xray ordered. Follow-up in office in 6 weeks time. I discussed the patient with Dr. Coker who agrees with my assessment and plan. All of the above is to improve functionality and quality of life. No evidence of drug abuse or diversion is seen at this time. documented in this encounter [facility] 05-04-2022 History of Presen t illness Narrative This note was created using [email or web address]. Subjective Navin August is a 62 year old female. The patient primarily being seen for neck, back pain Patient was last seen on: 03/23/22 At that time, the treatment plan was: see notes Current Meds: Fentanyl Patch am/ Robaxin today Efficacy: helpful Side effects: denies TENS unit: yes How often used: lost Benefit: Physical Therapy: Last UDS: 02/09/22 Last injection: OARRS reviewed At the present time, the patient reports benefit with her present analgesic therapy. She denies any adverse effects. Since her previous visit, she denies any hospitalizations or ER visits. Otherwise, she has nothing further to discuss at this time. INTAKE PAIN ASSESSMENT 05/04/2022 05/04/2022 Are you having pain associated with your visit today? Yes, Provider notified Yes, Provider notified Pain Scales Verbal (Numeric Rating or Visual Analog Scale) Verbal (Numeric Rating or Visual Analog Scale) Pain Level 2 2 Pain Location Neck Back-Lower Description Aching Burning Duration Amount of Time - - Duration Units Hours Hours Frequency Intermittent Intermittent Intervention/Comfort measure Medication;Relaxation;Cold;Heat Medication;Relaxation;Cold;Heat; Pillow support Comments - - PAST MEDICAL HISTORY Diagnosis Date Anxiety state Asthma Bipolar I disorder, most recent episode (or current) unspecified Chronic back pain Depression Headache(784.0) Hypothyroidism Lumbago Myalgia and myositis, unspecified Other and unspecified alcohol dependence, unspecified drinking behavior ETOH depend. syn. Other and unspecified hyperlipidemia 01/15/2010 Other extrapyramidal disease and abnormal movement disorder Other, mixed, or unspecified nondependent drug abuse, unspecified Drug /ETOH abuse (non-depend.) Tobacco use disorder 01/15/2010 PAST SURGICAL HISTORY Procedure Laterality Date CARPAL TUNNEL RIGHT WRIST 05/17/2002 COLONOSCOPY SCREENING EXPLORATORY OF ABDOMEN 2019 On her ovaries PAST SURGICAL HISTORY OF 05/17/1992 Social History Tobacco Use Smoking status: Every Day Packs/day: 1.00 Years: 30.00 Pack years: 30.00 Types: Cigarettes Smokeless tobacco: Never Substance Use Topics Alcohol use: No Drug use: No HPI Review of Systems Constitutional: Negative for fever and unexpected weight change. Musculoskeletal: + neck pain, back pain, joint pain/swelling, muscle cramps, stiffness, arthritis, restless legs and leg pain with exertion. Objective LMP 01/12/2008 Physical Exam Vitals and nursing note reviewed. Constitutional: Appearance: Normal appearance. She is well-developed, well-groomed and overweight. HENT: Head: Normocephalic and atraumatic. Right Ear: Hearing normal. Left Ear: Hearing normal. Eyes: Conjunctiva/sclera: Conjunctivae normal. Comments: Wearing glasses Musculoskeletal: Comments: She walks with a normal gait. There is tenderness to palpation in the cervical and lumbar region and over the SI joints bilaterally. The patient has multiple fibromyalgia tender points noted throughout the examination. Strength is 5/5 throughout. Sensation is intact to light touch throughout. SLR is negative. She has tenderness to palpation in the knees bilaterally with crepitus noted. Neurological: Mental Status: She is alert and oriented to person, place, and time. Psychiatric: Attention and Perception: Attention and perception normal. Mood and Affect: Mood and affect normal. Speech: Speech normal. Behavior: Behavior normal. Behavior is cooperative. Thought Content: Thought content normal. Judgment: Judgment normal. Assessment and Plan ASSESSMENT/PLAN: 1. Fibromyalgia - ICD9: 729.1, ICD10: M79.7 (primary diagnosis) The OARRS report has been reviewed and is consistent with the patients medical history and medication intake. The patient will continue with the fentanyl patch and methocarbamol. She will let us know when she is ready to try a lower dose of the fentanyl patch. See if you can find your TENS unit. Continue with core strengthening and range of motion exercises We again discussed the importance of quitting smoking. We will address her knee issues once she gets the knee x-rays done. She will let us know when she is ready to have a left knee xray ordered. Follow-up in office in 6 weeks time. - METHOCARBAMOL 500 MG TABLET 2. Degeneration of intervertebral disc of lumbar region - ICD9: 722.52, ICD10: M51.36 3. Lumbar spondylosis - ICD9: 721.3, ICD10: M47.816 4. Sacroiliitis (HCC) - ICD9: 720.2, ICD10: M46.1 5. Degeneration of intervertebral disc of cervical region - ICD9: 722.4, ICD10: M50.30 6. Chronic knee pain, unspecified laterality - ICD9: 719.46, 338.29, ICD10: M25.569, G89.29 Nelsy Chaudhari PA-C documented in this encounter [facility] 04-20-2022 Miscellaneous Notes The following approved medication requests have been transmitted electronically. Requested Prescriptions Pending Prescriptions Disp Refills fentaNYL (DURAGESIC) 50 mcg/hr 15 Patch 0 Sig: APPLY 1 PATCH TO SKIN EVERY OTHER DAY DIRECTED Nelsy Chaudhari PA-C Patient phones requesting refills as follows: Requested Prescriptions Pending Prescriptions Disp Refills fentaNYL (DURAGESIC) 50 mcg/hr 15 Patch 0 Sig: APPLY 1 PATCH TO SKIN EVERY OTHER DAY DIRECTED Please review and advise. Liliana Shah RN documented in this encounter [facility] 04-15-2022 Miscellaneous Notes The following approved medication requests have been transmitted electronically. Requested Prescriptions Pending Prescriptions Disp Refills fentaNYL (DURAGESIC) 50 mcg/hr 15 Patch 0 Sig: APPLY 1 PATCH TO SKIN EVERY OTHER DAY DIRECTED Do not start before April 18, 2022. Nelsy Chaudhari PA-C Patient phones requesting refills as follows: Requested Prescriptions Pending Prescriptions Disp Refills fentaNYL (DURAGESIC) 50 mcg/hr 15 Patch 0 Sig: APPLY 1 PATCH TO SKIN EVERY OTHER DAY DIRECTED Do not start before April 18, 2022. Please review and advise. Liliana Shah RN documented in this encounter [facility] 03-23-2022 Note HNO ID: [id number] Author: Nelsy Chaudhari PA-C Service: ? Author Type: Physician Professor Of Engineering Type: Progress Notes Filed: 03/23/2022 3:10 PM Note Text: This note was created using [employer]. Subjective Navin August is a 62 year old female. The patient primarily being seen for neck, back pain Patient was last seen on: 02/09/22 At that time, the treatment plan was: see notes Current Meds: Fentanyl Patch am/ Robaxin last pm Efficacy: helpful Side effects: denies TENS unit: yes How often used: lost Benefit: some Physical Therapy: Last UDS: 02/09/22 Last injection: OARRS reviewed At the present time, the patient reports benefit with her present analgesic therapy. She denies any adverse effects. Since her previous visit, she denies any hospitalizations or ER visits. Otherwise, she has nothing further to discuss at this time. INTAKE PAIN ASSESSMENT 03/23/2022 03/23/2022 Are you having pain associated with your visit today? Yes, Provider notified Yes, Provider notified Pain Scales Verbal (Numeric Rating or Visual Analog Scale) Verbal (Numeric Rating or Visual Analog Scale) Pain Level 5 5 Pain Location Neck Back-Lower Description Dull;Aching Aching;Dull Duration Amount of Time - - Duration Units Hours Hours Frequency Intermittent Intermittent Intervention/Comfort measure Medication;Relaxation;Cold;Heat; Pillow support;Positioning Medication;Relaxation;Cold;Heat; Pillow support;Positioning Comments - - HPI Review of Systems Constitutional: Negative for fever and unexpected weight change. Musculoskeletal: + neck pain, back pain, joint pain/swelling, muscle cramps/weakness, stiffness, arthritis, sciatica, restless legs and leg pain at night PAST MEDICAL HISTORY Diagnosis Date Anxiety state Asthma Bipolar I disorder, most recent episode (or current) unspecified Chronic back pain Depression Headache(784.0) Hypothyroidism Lumbago Myalgia and myositis, unspecified Other and unspecified alcohol dependence, unspecified drinking behavior ETOH depend. syn. Other and unspecified hyperlipidemia 01/15/2010 Other extrapyramidal disease and abnormal movement disorder Other, mixed, or unspecified nondependent drug abuse, unspecified Drug /ETOH abuse (non-depend.) Tobacco use disorder 01/15/2010 PAST SURGICAL HISTORY Procedure Laterality Date CARPAL TUNNEL RIGHT WRIST 05/17/2002 COLONOSCOPY SCREENING EXPLORATORY OF ABDOMEN 2019 On her ovaries PAST SURGICAL HISTORY OF 05/17/1992 Social History Tobacco Use Smoking status: Every Day Packs/day: 1.00 Years: 30.00 Pack years: 30.00 Types: Cigarettes Smokeless tobacco: Never Substance Use Topics Alcohol use: No Drug use: No Objective BP 145/68 Pulse 86 Temp 36.5 ?C (97.7 ?F) (Temporal) Resp 18 LMP 01/12/2008 SpO2 93% Physical Exam Vitals and nursing note reviewed. Constitutional: Appearance: Normal appearance. She is well-developed, well-groomed and overweight. HENT: Head: Normocephalic and atraumatic. Right Ear: Hearing normal. Left Ear: Hearing normal. Eyes: Conjunctiva/sclera: Conjunctivae normal. Comments: Wearing glasses Musculoskeletal: Comments: She walks with a normal gait. There is tenderness to palpation in the cervical and lumbar region and over the SI joints bilaterally. The patient has multiple fibromyalgia tender points noted throughout the examination. Strength is 5/5 throughout. Sensation is intact to light touch throughout. SLR is negative. She has tenderness to palpation in the knees bilaterally with crepitus noted. Neurological: Mental Status: She is alert and oriented to person, place, and time. Psychiatric: Attention and Perception: Attention and perception normal. Mood and Affect: Mood and affect normal. Speech: Speech normal. Behavior: Behavior normal. Behavior is cooperative. Thought Content: Thought content normal. Judgment: Judgment normal. Assessment and Plan ASSESSMENT/PLAN: 1. Fibromyalgia - ICD9: 729.1, ICD10: M79.7 (primary diagnosis) The OARRS report has been reviewed and is consistent with the patients medical history and medication intake. The patient's most recent urine drug screen has been reviewed and is appropriate and consistent with current therapy. The patient will continue with the fentanyl patch and methocarbamol. She will let us know when she is ready to try a lower dose of the fentanyl patch. See if you can find your TENS unit. Patient was encouraged to keep her self physically active, stretch out, and exercise. We again discussed the importance of quitting smoking. We will defer addressing her knee issues until she gets her knee x-ray done. Follow-up in office in 6 weeks time. 2. Degeneration of intervertebral disc of lumbar region - ICD9: 722.52, ICD10: M51.36 3. Lumbar spondylosis - ICD9: 721.3, ICD10: M47.816 4. Sacroiliitis (HCC) - ICD9: 720.2, ICD10: M46.1 (more content not included)... [facility] 03-23-2022 Instructions Nelsy Chaudhari PA-C - 03/23/2022 3:04 PM EST The OARRS report has been reviewed and is consistent with the patients medical history and medication intake. The patient's most recent urine drug screen has been reviewed and is appropriate and consistent with current therapy. The patient will continue with the fentanyl patch and methocarbamol. She will let us know when she is ready to try a lower dose of the fentanyl patch. See if you can find your TENS unit. Patient was encouraged to keep her self physically active, stretch out, and exercise. We again discussed the importance of quitting smoking. We will defer addressing her knee issues until she gets her knee x-ray done. Follow-up in office in 6 weeks time. I discussed the patient with Dr. Coker who agrees with my assessment and plan. All of the above is to improve functionality and quality of life. No evidence of drug abuse or diversion is seen at this time. documented in this encounter [facility] 03-23-2022 History of Presen t illness Narrative This note was created using [employer]. Subjective Navin August is a 62 year old female. The patient primarily being seen for neck, back pain Patient was last seen on: 02/09/22 At that time, the treatment plan was: see notes Current Meds: Fentanyl Patch am/ Robaxin last pm Efficacy: helpful Side effects: denies TENS unit: yes How often used: lost Benefit: some Physical Therapy: Last UDS: 02/09/22 Last injection: OARRS reviewed At the present time, the patient reports benefit with her present analgesic therapy. She denies any adverse effects. Since her previous visit, she denies any hospitalizations or ER visits. Otherwise, she has nothing further to discuss at this time. INTAKE PAIN ASSESSMENT 03/23/2022 03/23/2022 Are you having pain associated with your visit today? Yes, Provider notified Yes, Provider notified Pain Scales Verbal (Numeric Rating or Visual Analog Scale) Verbal (Numeric Rating or Visual Analog Scale) Pain Level 5 5 Pain Location Neck Back-Lower Description Dull;Aching Aching;Dull Duration Amount of Time - - Duration Units Hours Hours Frequency Intermittent Intermittent Intervention/Comfort measure Medication;Relaxation;Cold;Heat; Pillow support;Positioning Medication;Relaxation;Cold;Heat; Pillow support;Positioning Comments - - HPI Review of Systems Constitutional: Negative for fever and unexpected weight change. Musculoskeletal: + neck pain, back pain, joint pain/swelling, muscle cramps/weakness, stiffness, arthritis, sciatica, restless legs and leg pain at night PAST MEDICAL HISTORY Diagnosis Date Anxiety state Asthma Bipolar I disorder, most recent episode (or current) unspecified Chronic back pain Depression Headache(784.0) Hypothyroidism Lumbago Myalgia and myositis, unspecified Other and unspecified alcohol dependence, unspecified drinking behavior ETOH depend. syn. Other and unspecified hyperlipidemia 01/15/2010 Other extrapyramidal disease and abnormal movement disorder Other, mixed, or unspecified nondependent drug abuse, unspecified Drug /ETOH abuse (non-depend.) Tobacco use disorder 01/15/2010 PAST SURGICAL HISTORY Procedure Laterality Date CARPAL TUNNEL RIGHT WRIST 05/17/2002 COLONOSCOPY SCREENING EXPLORATORY OF ABDOMEN 2019 On her ovaries PAST SURGICAL HISTORY OF 05/17/1992 Social History Tobacco Use Smoking status: Every Day Packs/day: 1.00 Years: 30.00 Pack years: 30.00 Types: Cigarettes Smokeless tobacco: Never Substance Use Topics Alcohol use: No Drug use: No Objective BP 145/68 Pulse 86 Temp 36.5 C (97.7 F) (Temporal) Resp 18 LMP 01/12/2008 SpO2 93% Physical Exam Vitals and nursing note reviewed. Constitutional: Appearance: Normal appearance. She is well-developed, well-groomed and overweight. HENT: Head: Normocephalic and atraumatic. Right Ear: Hearing normal. Left Ear: Hearing normal. Eyes: Conjunctiva/sclera: Conjunctivae normal. Comments: Wearing glasses Musculoskeletal: Comments: She walks with a normal gait. There is tenderness to palpation in the cervical and lumbar region and over the SI joints bilaterally. The patient has multiple fibromyalgia tender points noted throughout the examination. Strength is 5/5 throughout. Sensation is intact to light touch throughout. SLR is negative. She has tenderness to palpation in the knees bilaterally with crepitus noted. Neurological: Mental Status: She is alert and oriented to person, place, and time. Psychiatric: Attention and Perception: Attention and perception normal. Mood and Affect: Mood and affect normal. Speech: Speech normal. Behavior: Behavior normal. Behavior is cooperative. Thought Content: Thought content normal. Judgment: Judgment normal. Assessment and Plan ASSESSMENT/PLAN: 1. Fibromyalgia - ICD9: 729.1, ICD10: M79.7 (primary diagnosis) The OARRS report has been reviewed and is consistent with the patients medical history and medication intake. The patient's most recent urine drug screen has been reviewed and is appropriate and consistent with current therapy. The patient will continue with the fentanyl patch and methocarbamol. She will let us know when she is ready to try a lower dose of the fentanyl patch. See if you can find your TENS unit. Patient was encouraged to keep her self physically active, stretch out, and exercise. We again discussed the importance of quitting smoking. We will defer addressing her knee issues until she gets her knee x-ray done. Follow-up in office in 6 weeks time. 2. Degeneration of intervertebral disc of lumbar region - ICD9: 722.52, ICD10: M51.36 3. Lumbar spondylosis - ICD9: 721.3, ICD10: M47.816 4. Sacroiliitis (HCC) - ICD9: 720.2, ICD10: M46.1 5. Degeneration of intervertebral disc of cervical region - ICD9: 722.4, ICD10: M50.30 6. Chronic knee pain, unspecified laterality - ICD9: 719.46, 338.29, ICD10: M25.569, G89.29 Nelsy Chaudhari PA-C documented in this encounter [facility] 2022 Miscellaneous Notes The following approved medication requests have been transmitted electronically. Requested Prescriptions Pending Prescriptions Disp Refills fentaNYL (DURAGESIC) 50 mcg/hr 15 Patch 0 Sig: APPLY 1 PATCH TO SKIN EVERY OTHER DAY DIRECTED Nelsy Chaudhari PA-C Not available at [facility] in [place] Liliana Shah RN 2022 2:56 PM Requested Prescriptions Pending Prescriptions Disp Refills fentaNYL (DURAGESIC) 50 mcg/hr 15 Patch 0 Sig: APPLY 1 PATCH TO SKIN EVERY OTHER DAY DIRECTED Please review and advise. Liliana Shah RN documented in this encounter [facility] 02-09-2022 Note HNO ID: [id number] Author: Nelsy Chaudhari PA-C Service: ? Author Type: Physician Professor Of Engineering Type: Progress Notes Filed: 02/09/2022 3:27 PM Note Text: This note was created using Raise Your Flagriter. Subjective Navin August is a 61 year old female. The patient primarily being seen for neck, back pain Patient was last seen on: 12/29/21 At that time, the treatment plan was: see notes Current Meds: Fentanyl Patch today/ Robaxin last pm Efficacy: helpful Side effects: denies TENS unit: yes How often used: not Benefit: Physical Therapy: Last UDS: 02/09/22 Last injection: OARRS reviewed At the present time, the patient reports benefit with her present analgesic therapy. She denies any adverse effects. Since her previous visit, she denies any hospitalizations or ER visits. Otherwise, she has nothing further to discuss at this time. INTAKE PAIN ASSESSMENT 02/09/2022 02/09/2022 Are you having pain associated with your visit today? Yes, Provider notified Yes, Provider notified Pain Scales Verbal (Numeric Rating or Visual Analog Scale) Verbal (Numeric Rating or Visual Analog Scale) Pain Level 5 4 Pain Location Neck Back-Lower Description Dull;Aching Dull;Aching Duration Amount of Time - - Duration Units - - Frequency Continuous Continuous Intervention/Comfort measure Medication;Relaxation;Heat;Cold; Pillow support;Positioning Medication;Relaxation;Cold;Heat; Pillow support;Positioning Comments - - HPI Review of Systems Constitutional: Negative for fever and unexpected weight change. Musculoskeletal: + neck pain, back pain, joint pain/swelling, muscle cramps/weakness, stiffness, arthritis, sciatica, restless legs and leg pain at night PAST MEDICAL HISTORY Diagnosis Date Anxiety state Asthma Bipolar I disorder, most recent episode (or current) unspecified Chronic back pain Depression Headache(784.0) Hypothyroidism Lumbago Myalgia and myositis, unspecified Other and unspecified alcohol dependence, unspecified drinking behavior ETOH depend. syn. Other and unspecified hyperlipidemia 01/15/2010 Other extrapyramidal disease and abnormal movement disorder Other, mixed, or unspecified nondependent drug abuse, unspecified Drug /ETOH abuse (non-depend.) Tobacco use disorder 01/15/2010 PAST SURGICAL HISTORY Procedure Laterality Date CARPAL TUNNEL RIGHT WRIST 05/17/2002 COLONOSCOPY SCREENING EXPLORATORY OF ABDOMEN 2019 On her ovaries PAST SURGICAL HISTORY OF 05/17/1992 Social History Tobacco Use Smoking status: Every Day Packs/day: 1.00 Years: 30.00 Pack years: 30.00 Types: Cigarettes Smokeless tobacco: Never Substance Use Topics Alcohol use: No Drug use: No Objective BP 138/76 (BP Site: Left Arm, BP Position: Sitting, BP Cuff Size: Regular Adult) Pulse 98 Temp 36.3 ?C (97.3 ?F) (Temporal) Resp 18 LMP 01/12/2008 SpO2 93% Physical Exam Vitals and nursing note reviewed. Constitutional: Appearance: Normal appearance. She is well-developed, well-groomed and overweight. HENT: Head: Normocephalic and atraumatic. Right Ear: Hearing normal. Left Ear: Hearing normal. Eyes: Conjunctiva/sclera: Conjunctivae normal. Comments: Wearing glasses Musculoskeletal: Comments: She walks with a normal gait. There is tenderness to palpation in the cervical and lumbar region and over the SI joints bilaterally. The patient has multiple fibromyalgia tender points noted throughout the examination. Strength is 5/5 throughout. Sensation is intact to light touch throughout. SLR is negative. She has tenderness to palpation in the knees bilaterally with crepitus noted. Neurological: Mental Status: She is alert and oriented to person, place, and time. Psychiatric: Attention and Perception: Attention and perception normal. Mood and Affect: Mood and affect normal. Speech: Speech normal. Behavior: Behavior normal. Behavior is cooperative. Thought Content: Thought content normal. Judgment: Judgment normal. Assessment and Plan ASSESSMENT/PLAN: 1. Fibromyalgia - ICD9: 729.1, ICD10: M79.7 (primary diagnosis) The OARRS report has been reviewed and is consistent with the patients medical history and medication intake. The patient underwent a random UDS at today's office visit. The patient will continue with the fentanyl patch and methocarbamol. She will let us know when she is ready to try a lower dose of the fentanyl patch. She was encouraged to use her TENS unit. Patient was encouraged to keep her self physically active, stretch out, and exercise. We again discussed the importance of quitting smoking. We will defer addressing her knee issues until she gets her knee x-ray done. Follow-up in office in 6 weeks time. 2. Degeneration of intervertebral disc of lumbar region - ICD9: 722.52, ICD10: M51.36 - DRUG SCR TOXASURE 3. Lumbar spondylosis - ICD9: 721.3, ICD10: M47.816 4. Sacroiliitis (HCC) - IC (more content not included)... [facility] 01-06-2022 Miscellaneous Notes The following approved medication requests have been transmitted electronically. Requested Prescriptions Pending Prescriptions Disp Refills fentaNYL (DURAGESIC) 50 mcg/hr 15 Patch 0 Sig: APPLY 1 PATCH TO SKIN EVERY OTHER DAY DIRECTED Do not start before January 15, 2022. methocarbamol (ROBAXIN) 500 mg tablet 90 tablet 3 Sig: Take 1 tablet by mouth every 8 hours as needed. Nelsy Chaudhari PA-C Patient phones requesting refills as follows: Requested Prescriptions Pending Prescriptions Disp Refills fentaNYL (DURAGESIC) 50 mcg/hr 15 Patch 0 Sig: APPLY 1 PATCH TO SKIN EVERY OTHER DAY DIRECTED Do not start before January 15, 2022. methocarbamol (ROBAXIN) 500 mg tablet 90 tablet 3 Sig: Take 1 tablet by mouth every 8 hours as needed. Please review and advise. Liliana Shah RN documented in this encounter [facility] 12-30-2021 Miscellaneous Notes The following approved medication requests have been transmitted electronically. Requested Prescriptions Pending Prescriptions Disp Refills cloNIDine HCl (CATAPRES) 0.1 mg tablet 4 tablet 0 Sig: Take 1 tablet by mouth twice daily for 2 days. Take for symptoms of opiate withdrawal until fentanyl prescription due to fill fentaNYL (DURAGESIC) 50 mcg/hr 15 Patch 0 Sig: APPLY 1 PATCH TO SKIN EVERY OTHER DAY DIRECTED Do not start before January 02, 2022. Nelsy Chaudhari PA-C Patient phones requesting refills as follows: Requested Prescriptions Pending Prescriptions Disp Refills cloNIDine HCl (CATAPRES) 0.1 mg tablet 4 tablet 0 Sig: Take 1 tablet by mouth twice daily for 2 days. Take for symptoms of opiate withdrawal until fentanyl prescription due to fill fentaNYL (DURAGESIC) 50 mcg/hr 15 Patch 0 Sig: APPLY 1 PATCH TO SKIN EVERY OTHER DAY DIRECTED Liliana Shah RN documented in this encounter [facility] 12-29-2021 Note HNO ID: [id number] Author: Neftaly Coker MD Service: ? Author Type: Physician Type: Progress Notes Filed: 12/30/2021 3:33 PM Note Text: This note was created using Raise Your Flagriter. Subjective Navin August is a 61 year old female. The patient primarily being seen for neck, back pain Patient was last seen on: 10/14/21 At that time, the treatment plan was: see notes Current Meds: Fentanyl Patch - last appied this am, Tizanidine - this afternoon Efficacy: take the edge off but can't sleep at night Side effects: none TENS unit: yes - she can't get it on by herself How often used: Benefit: Physical Therapy: years ago Last UDS: 08/01/21 Last injection: none OARRS reviewed INTAKE PAIN ASSESSMENT 09/18/2016 12/29/2021 Are you having pain associated with your visit today? No Yes, Provider notified Pain Scales - Verbal (Numeric Rating or Visual Analog Scale) Pain Level - 7 Pain Location - Neck Description - Sharp;Stabbing/Not Incision Duration Amount of Time - - Duration Units - Years Frequency - Continuous Intervention/Comfort measure - Medication;Cold;Heat Comments - - HPI Patient is getting adequate relief from the present regimen and denies any side effect from it. This has improved the patient?s level of functionality and has been able to perform activities of daily living. The patient exhibits no aberrant behavior. The PDMP report and last UDS are both consistent with prescribed medications and are unremarkable. Patient does not feel that tizanidine has been helping her anymore. She used to be on cyclobenzaprine in the past which did not help. She was recently started on hydroxyzine to help her sleep. She still did not have her knee x-ray done. Review of Systems General: Negative Neck: Positive for neck pain Psych: Positive for anxiety Musculoskeletal: Positive for back pain, joint pain, joint swelling, muscle cramps, muscle weakness, stiffness, arthritis, and sciatica Objective BP 143/93 (BP Site: Left Arm, BP Position: Sitting, BP Cuff Size: Large Adult) Pulse 103 Temp 36.4 ?C (97.5 ?F) (Temporal) Resp 20 Ht 149.9 cm (4' 11 ) Wt 20.9 kg (46 lb) LMP 01/12/2008 SpO2 93% BMI 9.29 kg/m? Physical Exam Vitals and nursing note reviewed. Constitutional: General: She is not in acute distress. Appearance: Normal appearance. HENT: Head: Normocephalic and atraumatic. Right Ear: External ear normal. Left Ear: External ear normal. Nose: Nose normal. Eyes: Extraocular Movements: Extraocular movements intact. Conjunctiva/sclera: Conjunctivae normal. Musculoskeletal: Comments: no deformity or scoliosis noted with normal posture and gait. The patient has multiple fibromyalgia tender points noted throughout the examination. She has spasms in the trapezius and paraspinal muscles throughout her back. She has tenderness to palpation in the SI joints bilaterally. There is increased pain on range of motion and weightbearing of both knees. Bilateral knee tenderness was present. Skin: General: Skin is warm and dry. Neurological: General: No focal deficit present. Mental Status: She is alert and oriented to person, place, and time. Psychiatric: Mood and Affect: Mood normal. Behavior: Behavior normal. Assessment and Plan ASSESSMENT/PLAN: 1. Fibromyalgia - ICD9: 729.1, ICD10: M79.7 (primary diagnosis) The patient will continue with fentanyl patch. She will be switched from tizanidine to methocarbamol. She was encouraged to use her TENS unit. Patient was encouraged to keep her self physically active, stretch out, and exercise. We again discussed the importance of quitting smoking. We will defer addressing her knee issues until she gets her knee x-ray done. Follow-up in office in 6 weeks time. 2. Degeneration of intervertebral disc of lumbar region - ICD9: 722.52, ICD10: M51.36 3. Lumbar spondylosis - ICD9: 721.3, ICD10: M47.816 4. Sacroiliitis (HCC) - ICD9: 720.2, ICD10: M46.1 5. Degeneration of intervertebral disc of cervical region - ICD9: 722.4, ICD10: M50.30 6. Chronic knee pain, unspecified laterality - ICD9: 719.46, 338.29, ICD10: M25.569, G89.29 Greater than two stable chronic illness and prescription medication management. This document was transcribed using a voice recognition software and may contain minor errors. Neftaly Coker MD [facility] 12-26-2021 Nurse Progress note Patient informed of discharge. Called daughter, Samantha, and informed her of patient discharge and she stated she would be on her way. Went into patient room to inform patient and found her upset in the room, stating you are kicking me out and no one cares. Attempted to talk to patient, but she was ambulating in room and would not make eye contact. Offered to help patient get dressed and pack up items in room, patient refused and stated I don't want your help. Patient then went into hallway attempting to go down elevator. Redirected patient to stay on floor until daughter arrived. Daughter arrived a few minutes later in elevator with security and discharge paperwork reviewed with daughter. Patient and her daughter left ambulatory via elevator. Digitally Signed by Stephanie Hidalgo RN on 12/26/2021 03:25 PM [facility] 12-26-2021 Note Discharge Instructions Thank you for allowing [facility] to assist you with your healthcare needs. The following is important discharge information regarding your hospital visit. Your Care Team Carmen Hair CAPTAIN'S ASSISTANT Your Diagnosis Hypo-osmolality and hyponatremia Bipolar disease, chronic Asthma Bronchitis, chronic Hypothyroid Fibromyalgia Anxiety Medical screening exam What to do next Follow Up Appointments Follow Up with WILL REYES MD When Within 5 to 7 days Why: Message left for PCP office. Recheck BMP in 1 week. Where: [facility] [address] [place], [place] [address] [address] [place] [address]- The Following Activity and Diet Have Been Ordered for You Discharge Activity - Ordered -- NO activity restrictions, 12/26/21 12:44:00 EDT Discharge Diet - Ordered -- Type of Diet: Regular Diet, 12/26/21 12:44:00 EDT The Following Treatments Have Been Ordered for You Discharge Labs Discharge Outpatient Labwork - Ordered -- BMP, hyponatremia, follow-up within: 1 week, Your appointment is: 01/01/22 12:00:00 EDT, results to Dr. Reyes, 12/26/21 12:46:00 EDT Discharge Radiology No qualifying data available. Other Therapies No qualifying data available. Post Acute Orders No qualifying data available. Allergies Levaquin (Tongue swelling) Neurontin (Rash) Medications Please ask your primary doctor or pharmacist before taking any other medication not listed, including over the counter drugs, herbal medications, vitamins and or supplements as they may interact with your home medications. What How Much When Why Instructions Last Dose Changed fentaNYL 50 Microgram Topical Every 48 hours prior to admission Changed fentaNYL (fentaNYL 50 mcg/ hr transdermal film) 1 patch(es) Transdermal Every 48 hours Fibromyalgia Duration: 4 Days Pickup at [id number] Unchanged acetaminophen (acetaminophen 325 mg oral capsule) 650 Milligram by mouth Every 6 hours as needed for Pain, scale 1-3 Unchanged albuterol (Ventolin HFA MDI (90 mcg/ inh) inhalation aerosol) 2 puff(s) by inhalation Every 4 hours as needed for as needed for wheezing Duration: 30 Days Unchanged benztropine (benztropine 0.5 mg oral tablet) 1 tab(s) by mouth Two (2) times a day as needed for muscle twitching Unchanged clonazePAM (KlonoPIN 1 mg oral tablet) 1 tab(s) by mouth Two (2) times a day as needed for Anxiety 1 PM Unchanged hydrOXYzine (hydrOXYzine hydrochloride 25 mg oral tablet) 0.5 - 3 tab(s) by mouth Every day as needed for as needed for anxiety Unchanged lamoTRIgine (lamoTRIgine 200 mg oral tablet) 2 tab(s) by mouth Once a day 9 AM Unchanged sertraline (sertraline 50 mg oral tablet) 1 tab(s) by mouth Once a day 9 AM Unchanged tiZANidine (tiZANidine 4 mg oral tablet) 1 tab(s) by mouth Three (3) times a day as needed for as needed for muscle spasm 11 AM Pharmacy Information [id number]: [address], [place] [id number] [phone] Please take this list to your next doctor s visit. Bring all medications you take, including over the counter medications, herbals and other supplements with you to your doctor s visit. Patients and families are reminded to discard old lists and to update any records with all medication providers or retail pharmacies. Education Materials Hyponatremia Hyponatremia is when the salt (sodium) in your blood is low. When salt becomes low, your cells take in extra water and puff up (swell). The puffiness can happen in the whole body. It mostly affects the brain and is very serious. HOME CARE Only take medicine as told by your doctor. Follow any diet instructions you were given. This includes limiting how much fluid you drink. Keep all doctor visits for tests as told. Avoid alcohol and drugs. GET HELP RIGHT AWAY IF: You start to twitch and shake (seize). You pass out (faint). You continue to have watery poop (diarrhea) or you throw up (vomit). You feel sick to your stomach (nauseous). You are tired (fatigued), have a headache, are confused, or feel weak. Your problems that first brought you to the doctor come back. You have trouble following your diet instructions. MAKE SURE YOU: Understand these instructions. Will watch your condition. Will get help right away if you are not doing well or get worse. Document Released: 01/13/2012 Document Revised: 07/25/2012 Document Reviewed: 01/13/2012 ExitCare Patient Information 2015 [employer] [facility]. This information is not intended to replace advice given to you by your health care provider. Make sure you discuss any questions you have with your health care provider. Additional Information VACCINATE! IT SAVES LIVES! Members of the community who have not yet received the COVID-19 vaccine and would like to receive it can visit one of [facility] vaccine clinics. There are many vaccine clinic locations within the [facility]. For locations and available times, please visit [email or web address] It is important to note that some COVID mobile vaccine clinics are held outdoors and may be canceled in rainy or stormy conditions. To learn more about pediatric vaccinations (ages 5-11), we invite you to visit the [facility] webpage. [email or web address] To learn more about the COVID-19 vaccine, we invite you to visit the [facility] website for a list of frequently asked questions. [email or web address] [facility] Patient Portal Access Instructions: Stay connected with your healthcare team and access your personal medical information anytime with the [facility] Patient Portal.If you would like a full copy of your medical records, please contact the [facility] Medical Records Department, Wednesday through Wednesday between 8a.m. and 4:30p.m. Please follow the directions below to access the portal: 1.Access the email account you provided upon registration to the [facility].2.Look for an invitation email from [facility].3.Open the email and access the invitation link: Accept Invitation to [facility].Fill in the required renner to create your account. Sign into [email or web address] with your username and password that you created in the above steps to stay up to date. You can then view a summary of results, a summary of your visits, and the ability to download your summaries to your computer or send the information securely to a physician. Remember that your healthcare information is confidential, so carefully consider who you will allow to register on the [facility] Patient Portal for access to your information. You can also access the [facility] Patient Portal on the [employer]. Simply click on Health Records under Health Data and then click on the [place] logo. HOW TO SAFELY DISPOSE OF PRESCRIPTION MEDICATIONS Please use one of the following methods to safely dispose of your unused medications. 1.Use a drug disposal kit: the drug disposal pouch allows you to safely discard your old and unused drugs. Ask your nurse to give you one when you are discharged.2.Visit a local take-back location: Many local pharmacies and police departments have programs that collect old and unwanted prescription drugs. Call your local pharmacy or go to http://OmniGuide.youblisher.com/4N0Bj2f to find one close to you.3.Make use of household items: Use cat litter or old coffee grounds to dispose medications if other options are not available. Mix your drugs with these household products, seal them in an airtight container and throw it into the garbage. Call [facility]: [phone] to be sure your drugs can be disposed of in this way. Some medicines may require a different approach.4.Never flush your medications down the toilet. IF YOU HAVE BEEN PRESCRIBED AN OPIOID FOR PAIN If you have been prescribed an opioid (such as hydrocodone, oxycodone or morphine), it is critical to understand the possible side effects and risks of opioid pain medications. Even when taken as directed, opioids can have several side effects including: Tolerance, meaning you might need to take more of a medication for the same pain relief. Nausea, vomiting and/or constipation. Sleepiness, dizziness, dry mouth, confusion, depression or itching. Physical dependence, meaning you have withdrawal symptoms when a medication is stopped, can develop within a few days. KNOW YOUR RESPONSIBILITIES It is important to know exactly how much and how often to take the opioid pain medications you are prescribed. Never take opioids in higher amounts or more often than prescribed. Do not combine opioids with alcohol or other drugs that cause drowsiness, such as benzodiazepines, also known as benzos, including diazepam and alprazolam, muscle relaxants or sleep aids. Never sell or share prescription opioids. This is illegal. Store opioids in a secure place and out of reach of others (including children, family, friends and visitors). The last page of this document has been signed and retained as a CHART COPY. Signatures Patient Education Materials Hyponatremia, [id number] Medication Leaflets My discharge plan and instructions have been reviewed and explained to me and I,NAVIN AUGUST understand my current condition and have read and understand these discharge instructions. I have received a written copy of the plan/instructions. If I have questions, I am aware that I should contact my doctor. 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 When salt becomes low, your cells take in extra water and puff up (swell). The puffiness can happen in the whole body. It mostly affects the brain and is very serious. HOME CARE Only take medicine as told by your doctor. Follow any diet instructions you were given. This includes limiting how much fluid you drink. Keep all doctor visits for tests as told. Avoid alcohol and drugs. GET HELP RIGHT AWAY IF: You start to twitch and shake (seize). You pass out (faint). You continue to have watery poop (diarrhea) or you throw up (vomit). You feel sick to your stomach (nauseous). You are tired (fatigued), have a headache, are confused, or feel weak. Your problems that first brought you to the doctor come back. You have trouble following your diet instructions. MAKE SURE YOU: Understand these instructions. Will watch your condition. Will get help right away if you are not doing well or get worse. Document Released: 01/13/2012 Document Revised: 07/25/2012 Document Reviewed: 01/13/2012 ExitCare Patient Information 2015 [employer]. This information is not intended to replace advice given to you by your health care provider. Make sure you discuss any questions you have with your health care provider. Follow Up Care 12/25/2021 09:58:36 With:WILL REYES MD Address: [facility] [address] [place] [address] [address] [place] [address]- When:5 to 7 days Comments:Message left for PCP office. Recheck BMP in 1 week. [facility] 12-26-2021 Nurse Progress note Patient requesting COVID test. Spoke to [employer]TAIN[employer]S ASSISTANT and test was ordered. When patient was told how long the test would take she refused. Patient stated, I'm not waiting that long, I refuse. Digitally Signed by Katheryn Delgado LPN on 12/26/2021 01:36 PM [facility] 12-25-2021 Note Date of Service 12/25/2021 Chief Complaint States that she is concerned that she has ammonia toxicity . History of Present Illness Patient is a 61-year-old female, who follows with Dr. Reyes with a past medical history significant for bipolar disorder, asthma, fibromyalgia, and hypothyroidism, presents to [facility] emergency department with the chief complaint of weakness and falls. Patient's daughter is at the bedside and states that her mother moved into a new apartment about 3 months ago. Shortly after moving in, she complained to her daughter that there was a terrible cat urine odor in the apartment. Patient is convinced that she has ammonia toxicity from this and has been having falls, weakness, insomnia and other complaints from this. Patient has been out of her Klonopin as it was not due to refill until tomorrow. She reportedly has not been able to sleep without her Klonopin. Her daughter feels that she has not been taking care of herself. Patient admits that her short term memory lately has been poor. She reports that she inadvertently put a new Fentanyl patch on one day, forgot, and put another one on the next day. Her daughter brought her in today for evaluation. On labs, it was noted that her sodium was low, 128. Patient denies any fever, chills, cough, shortness of breath, chest pain, abdominal pain or nausea. In the emergency department, chest x-ray showed no acute abnormality. CT of the brain revealed no acute intracranial hemorrhage or mass effect. CBC remarkable for platelet count 530. BMP significant for glucose 116, sodium 128, and BUN 4. Urinalysis significant for a trace of blood. COVID-19 negative. Patient was started on NS @ 75cc/hr in the ED. She was transferred to medical surgical unit for observation. We will continue IV fluids for now. Check urine osmolality, urine sodium and serum osmolality. Start 1500cc fluid restriction. Repeat BMP this afternoon. Repeat CBC and BMP in the am. Check TSH in the am. Review of Systems Review of Systems: Reviewed in detail, including general health, HEENT, cardiovascular, respiratory, gastrointestinal, genitourinary, endocrine, musculoskeletal, neurologic, vascular, skin, and psychiatric. All are negative except for those listed in the History of Present Illness. Physical Exam Vitals and Measurements T: 36.8 C (Oral) HR: 71(Monitored) RR: 16 BP: 133/86 SpO2: 92% HT: 150 cm WT: 65.4 kg BMI: 29.07 Weight Dosing Weight: 65.4 kg (12/25/21) General: No acute distress, tearful at times. Patient is alert and appropriate. Skin: No rash. Skin is warm, dry and intact. HEENT: Head is normocephalic, atraumatic. Pupils are equal, round and reactive. Mouth is without lesion. Nose without septal deviation. Neck: Supple. No lymphadenopathy, thyromegaly. Lungs: Bilaterally clear but diminished without crepitation or wheeze. Unlabored. Heart: Heart is regular rhythm, S1, S2. No murmurs, gallops or rubs. Abdomen: Abdomen is soft, nontender. Bowels sounds present in all quadrants. Extremities: No clubbing, cyanosis, or edema. Peripheral pulses palpable. No calf tenderness. Neurological: Patient is awake and alert to person, place and time. Following simple commands, moving all extremities. Lab Results 12/25 11:10 WBC: 8.6 Hgb: 15.1 Hct: 42.5 Platelet: 530 H Neutrophil %: 74.5 Glucose Level: 116 H Sodium Level: 128 L Potassium Level: 3.7 BUN: 4 L Creatinine Lvl (s): 0.98 Imaging Results and Diagnostics XR Chest 1 View Result Date: December 25, 2021 Verified By: CR TIRADO DO CLINICAL STATEMENT: IMPRESSION: 1. No evidence of acute cardiopulmonary process. CT Head or Brain w/o Contrast Result Date: December 25, 2021 Verified By: CR TIRADO DO CLINICAL STATEMENT: IMPRESSION: 1. No acute intracranial hemorrhage or mass effect. Assessment/Plan 1. Hypo-osmolality and hyponatremia Acute on chronic, unknown etiology *NS @ 75cc/hr started in ED. *Will start 1500cc fluid restriction. *Repeat BMP this afternoon. *Check urine osmolality and urine sodium. *Check serum osmolality. *Consult placed to PT and OT - following. *Repeat BMP in the am. 2. Bipolar disease, chronic Chronic *Continue current home medication. *Patient has an appointment with her psychiatrist on 01/01. 3. Asthma Chronic, stable *Start duoneb aerosols as needed for shortness of breath. 4. Bronchitis, chronic Chronic, stable *Start duoneb aerosols as needed for shortness of breath/wheezing. 5. Hypothyroid Chronic *Continue current home medication. *Check TSH in the am. 6. Fibromyalgia Chronic *Continue current home medication. 7. Anxiety Chronic *Continue Klonopin at home dose. DVT prophylaxis with SCDs. Patient wishes to be a DNRCCA - do not intubate. This case was discussed with collaborating physician, Dr. Quan Acosta. Problem List/Past Medical History Ongoing Anemia Asthma Bipolar disease, chronic Bronchitis, chronic Chronic pain Fibromyalgia Hypothyroid Tobacco use Vitamin D deficiency Historical No qualifying data Procedure/Surgical History Laparoscopy of ovary, right: 08/24/18 section: 11/18/92 Colonoscopy Medications Home Medications (9) Active acetaminophen 325 mg oral capsule 650 mg, PRN, Oral, q6h benztropine 0.5 mg oral tablet 0.5 mg = 1 tab(s), PRN, Oral, BID fentaNYL 50 mcg, Topical, q48h hydrOXYzine hydrochloride 25 mg oral tablet 0.5 - 3 tab(s), PRN, Oral, Daily KlonoPIN 1 mg oral tablet 1 mg = 1 tab(s), PRN, Oral, BID lamoTRIgine 200 mg oral tablet 400 mg = 2 tab(s), Oral, qDay sertraline 50 mg oral tablet 50 mg = 1 tab(s), Oral, qDay tiZANidine 4 mg oral tablet 4 mg = 1 tab(s), PRN, Oral, TID Ventolin HFA MDI (90 mcg/inh) inhalation aerosol 2 puff(s), PRN, Inhalation, q4h Allergies Levaquin (Tongue swelling) Neurontin (Rash) Social History Smoking Status - 05/25/2016 Current every day smoker Alcohol Use: Never., 07/13/2018 Home/Environment Living situation: Home/Independent. Lives In: Apartment, 1st floor bedroom, 1st floor bathroom. Current Home Treatments None., 12/25/2021 Nutrition/Health Caffeine intake amount: carbonated beverages, 4 servings daily., 12/21/2018 Substance Abuse Use: Never., 07/13/2018 Tobacco Nicotine Use: 10 or more cigarettes (1/2 pack or more)/day in last 30 days. Type: Cigarettes. Smoking Cessation Information Requests additional information., 12/25/2021 Tobacco Use: 5-9 cigarettes (between 1/4 to 1/2 pack)/day in last 30 days. Type: Cigarettes. Number of years: 30. Previous treatment: Medications., 03/29/2019 Family History Alcohol abuse: Brother. Asthma: Father. COPD (chronic obstructive pulmonary disease) 13-Nov-2015 02:40:22<$>: Father. Colon cancer: Grandparent. Depression: Mother and Sister. Diabetes mellitus: Mother. Heart disease: Mother and Father. Leukemia: Mother. Mental illness: Father. Migraine: Mother. Osteoarthritis: Mother, Father and Sister. Osteoporosis: Father. Stroke: Brother. Thyroid disease: Mother and Sister. Immunizations pneumococcal 23-valent vaccine(Pneumovax: 0 unknown unit (04/01/21) pneumococcal 23-valent vaccine(Pneumovax: 0.5 unknown unit (05/29/20) SARS-CoV-2 (COVID-19) mRNA-1273 vaccine: 0 unknown unit (04/01/21) SARS-CoV-2 (COVID-19) mRNA-1273 vaccine: 0.5 unknown unit (11/15/20) SARS-CoV-2 (COVID-19) mRNA-1273 vaccine: 0.5 unknown unit (10/08/20) tetanus-diphtheria toxoids: 0 unknown unit (02/14/02) Code Status Code Status - Ordered -- 12/25/21 14:53:00 EDT, DNRCC-Arrest Do Not Intubate, Constant Order Digitally Signed by CARMEN HAIR on 12/25/2021 04:34 PM [facility] 1. Hypo-osmolality and hypon atremia Acute on chronic, unknown etiology *NS @ 75cc/hr started in ED. *Will start 1500cc fluid restriction. *Repeat BMP this afternoon. *Check urine osmolality and urine sodium. *Check serum osmolality. *Consult placed to PT and OT - following. *Repeat BMP in the am. 2. Bipolar disease, chronic Chronic *Continue current home medication. *Patient has an appointment with her psychiatrist on 01/01. 3. Asthma Chronic, stable *Start duoneb aerosols as needed for shortness of breath. 4. Bronchitis, chronic Chronic, stable *Start duoneb aerosols as needed for shortness of breath/wheezing. 5. Hypothyroid Chronic *Continue current home medication. *Check TSH in the am. 6. Fibromyalgia Chronic *Continue current home medication. 7. Anxiety Chronic *Continue Klonopin at home dose. DVT prophylaxis with SCDs. Patient wishes to be a DNRCCA - do not intubate. This case was discussed with collaborating physician, Dr. Quan Acosta. Diagnostic Tests Pending * COVID-19 Only (AO) 12/26/21 [facility] 08-11-2022 Note ORIGINAL EXAMINATION: CT OF THE HEAD WITHOUT CONTRAST12/25/2021 12:07 pm TECHNIQUE: CT of the head was performed without the administration of intravenous contrast. Automated exposure control, iterative reconstruction, and/or weight based adjustment of the mA/kV was utilized to reduce the radiation dose to as low as reasonably achievable. COMPARISON: None. HISTORY: ORDERING SYSTEM PROVIDED HISTORY: Reason for Exam: Altered mental status FINDINGS: There is no intracranial hemorrhage, mass, mass effect or abnormal extra-axial fluid collection. There is no CT evidence for acute large territorial infarction. The density in the larger dural venous sinuses is grossly normal. The ventricles are normal for age. There are periventricular/subcortical white matter hypodensities, nonspecific but statistically represent mild chronic microvascular angiopathy. Atherosclerotic calcifications are present in the cavernous carotid arteries. The skull base and calvarium demonstrate no acute abnormality. The included paranasal sinuses and mastoid air cells are predominantly clear. IMPRESSION: 1. No acute intracranial hemorrhage or mass effect. Interpreted by: Cr Tirado DO Preliminary Report By: Cr Tirado DO Electronically signed By Cr Tirado DO Dictated Date: 12/25/2021 12:14:04 PM Prelim Date: 12/25/2021 12:16:50 PM Sign Date: 12/25/2021 12:16:50 PM Ordering Provider: KRYSTAL VALLADARES [facility]08-11-2022 Note ORIGINAL EXAMINATION: ONE XRAY VIEW OF THE CHEST 12/25/2021 12:06 pm COMPARISON: 03/01/2019 HISTORY: ORDERING SYSTEM PROVIDED HISTORY: Reason for Exam: Altered mental status FINDINGS: Heart size is within normal limits for projection. Mild atherosclerosis present of the thoracic aorta. There is no appreciable pneumothorax, pleural effusion, or vascular congestion. No focal airspace consolidations are evident. There are degenerative changes of the spine. IMPRESSION: 1. No evidence of acute cardiopulmonary process. Interpreted by: Cr Tirado DO Preliminary Report By: Cr Tirado DO Electronically signed By Cr Tirado DO Dictated Date: 12/25/2021 12:12:58 PM Prelim Date: 12/25/2021 12:13:51 PM Sign Date: 12/25/2021 12:13:51 PM Ordering Provider: [address]11-2022 Note ORIGINAL EXAMINATION: ONE XRAY VIEW OF THE CHEST 12/25/2021 12:06 pm COMPARISON: 03/01/2019 HISTORY: ORDERING SYSTEM PROVIDED HISTORY: Reason for Exam: Altered mental status FINDINGS: Heart size is within normal limits for projection. Mild atherosclerosis present of the thoracic aorta. There is no appreciable pneumothorax, pleural effusion, or vascular congestion. No focal airspace consolidations are evident. There are degenerative changes of the spine. IMPRESSION: 1. No evidence of acute cardiopulmonary process. Interpreted by: Cr Tirado DO Preliminary Report By: Cr Tirado DO Electronically signed By Cr Tirado DO Dictated Date: 12/25/2021 12:12:58 PM Prelim Date: 12/25/2021 12:13:51 PM Sign Date: 12/25/2021 12:13:51 PM Ordering Provider: [address]11-2022 Note ORIGINAL EXAMINATION: CT OF THE HEAD WITHOUT CONTRAST12/25/2021 12:07 pm TECHNIQUE: CT of the head was performed without the administration of intravenous contrast. Automated exposure control, iterative reconstruction, and/or weight based adjustment of the mA/kV was utilized to reduce the radiation dose to as low as reasonably achievable. COMPARISON: None. HISTORY: ORDERING SYSTEM PROVIDED HISTORY: Reason for Exam: Altered mental status FINDINGS: There is no intracranial hemorrhage, mass, mass effect or abnormal extra-axial fluid collection. There is no CT evidence for acute large territorial infarction. The density in the larger dural venous sinuses is grossly normal. The ventricles are normal for age. There are periventricular/subcortical white matter hypodensities, nonspecific but statistically represent mild chronic microvascular angiopathy. Atherosclerotic calcifications are present in the cavernous carotid arteries. The skull base and calvarium demonstrate no acute abnormality. The included paranasal sinuses and mastoid air cells are predominantly clear. IMPRESSION: 1. No acute intracranial hemorrhage or mass effect. Interpreted by: Cr Tirado DO Preliminary Report By: Cr Tirado DO Electronically signed By Cr Tirado DO Dictated Date: 12/25/2021 12:14:04 PM Prelim Date: 12/25/2021 12:16:50 PM Sign Date: 12/25/2021 12:16:50 PM [facility] Patient Education 12/11/2021 20:39:48 Upper Extremity Contusion Upper Extremity Contusion You have a contusion (bruise) of an upper extremity (arm, wrist, hand, or fingers). Symptoms include pain, swelling, and skin discoloration. No bones are broken. This injury may take from a few days to a few weeks to heal. During that time, the bruise may change from reddish in color, to purple-blue, to green- yellow, to yellow-brown. Home care Unless another medicine was prescribed, you can take acetaminophen, ibuprofen, or naproxen to control pain. (If you have chronic liver or kidney disease or ever had a stomach ulcer or gastrointestinal bleeding, talk with your doctor before using these medicines.) Elevate the injured area to reduce pain and swelling. As much as possible, sit or lie down with theinjured area raised about the level of your heart. This is especially important during the first 48hours. Ice the injured area to help reduce pain and swelling. Wrap a cold source (ice pack or ice cubes smiley plastic bag) in a thin towel. Apply to the bruised area for 20 minutes every 1 to 2 hours the first day. Continue this 3 to 4 times a day until the pain and swelling goes away. If a sling was provided, you may remove it to shower or bathe. To prevent joint stiffness, do not wear it for more than 1 week. Follow-up care Follow up with your healthcare provide, or as advised. Call if you are not improving within the next 1 to 2 weeks. When to seek medical advice Call your healthcare provider right away if any of these occur: Increased pain or swelling Hand or fingers become cold, blue, numb or tingly Signs of infection: Warmth, drainage, or increased redness or pain around the injury Inability to move the injured body part Frequent bruising for unknown reasons [id number] [employer]. [address] [place] [address]. All rights reserved. This information is not intended as a substitute for professional medical care. Always follow yourhealthcare professional's instructions. Follow Up Care 12/11/2021 19:44:25 With:WILL REYES MD Address: [facility] [address] [place] [address]- When:2-4 days [facility] 07-28-2022 Note Discharge Instructions Thank you for allowing [facility] to assist you with your healthcare needs. The following is importantdischarge information regarding your hospital visit. Diagnosis from Today's Visit Arm injury - Minor What to Do Next Instructions from Your Care Team No qualifying data available. Post Acute Orders No qualifying data available. You Need to Schedule the Following Appointments Follow Up with WILL REYES MD When Within 2-4 days Where: [facility] [address] [place] [id number]- Allergies Levaquin (Tongue swelling) Neurontin (Rash) Medications Please ask your primary doctor or pharmacist before taking any other medication not listed, including over the counter drugs, herbal medications, vitamins and or supplements as they may interact withyour home medications. What How Much When Instructions Last Dose Unchanged acetaminophen (acetaminophen 325 mg oral capsule) 650 Milligram by mouth Every 6 hours as needed for Pain, scale 1-3 Unchanged albuterol (Ventolin HFA MDI (90 mcg/ inh) inhalation aerosol) 2 puff(s) by inhalation Every 4 hours as needed for as needed for wheezing Duration: 30 Days Unchanged cholecalciferol (Vitamin D3) 1,000 unit(s) by mouth Two (2) times a day Unchanged clonazePAM (KlonoPIN 1 mg oral tablet) 1 tab(s) by mouth Unchanged fentaNYL 50 Microgram Topical Every 48 hours Unchanged fluticasone (Flovent HFA 110 mcg/ inh inhalation aerosol) See instructions 1 puff(s) Inhalation BID Unchanged lamoTRIgine (lamoTRIgine 200 mg oral tablet) take 2 tablets by mouth once daily Unchanged levothyroxine (Synthroid 25 mcg (0.025 mg) oral tablet) 1 tab(s) by mouth Once a day before a meal Unchanged meloxicam (meloxicam 7.5 mg oral tablet) 1 tab(s) by mouth Two (2) times a day Unchanged multivitamin (Multivitamin) 1 tab(s) by mouth Every day Unchanged omeprazole 40 Milligram by mouth Once a day Unchanged sertraline (sertraline 50 mg oral tablet) 1 tab(s) by mouth Once a day TAKE 1 TABLET BY MOUTH EVERY DAY Unchanged tiZANidine (tiZANidine 4 mg oral tablet) 1 tab(s) by mouth Three (3) times a day as needed for as needed for muscle spasm Please take this list to your next doctor s visit. Bring all medications you take, including over the counter medications, herbals and other supplements with you to your doctor s visit. Patients and families are reminded to discard old lists and to update any records with all medication providers or retail pharmacies. Education Materials Upper Extremity Contusion You have a contusion (bruise) of an upper extremity (arm, wrist, hand, or fingers). Symptoms include pain, swelling, and skin discoloration. No bones are broken. This injury may take from a few days to a few weeks to heal. During that time, the bruise may change from reddish in color, to purple-blue, to green- yellow, to yellow-brown. Home care Unless another medicine was prescribed, you can take acetaminophen, ibuprofen, or naproxen to control pain. (If you have chronic liver or kidney disease or ever had a stomach ulcer or gastrointestinal bleeding, talk with your doctor before using these medicines.) Elevate the injured area to reduce pain and swelling. As much as possible, sit or lie down with theinjured area raised about the level of your heart. This is especially important during the first 48hours. Ice the injured area to help reduce pain and swelling. Wrap a cold source (ice pack or ice cubes smiley plastic bag) in a thin towel. Apply to the bruised area for 20 minutes every 1 to 2 hours the first day. Continue this 3 to 4 times a day until the pain and swelling goes away. If a sling was provided, you may remove it to shower or bathe. To prevent joint stiffness, do not wear it for more than 1 week. Follow-up care Follow up with your healthcare provide, or as advised. Call if you are not improving within the next 1 to 2 weeks. When to seek medical advice Call your healthcare provider right away if any of these occur: Increased pain or swelling Hand or fingers become cold, blue, numb or tingly Signs of infection: Warmth, drainage, or increased redness or pain around the injury Inability to move the injured body part Frequent bruising for unknown reasons [id number] [employer]. [address] [place] [address], [place] [address]. All rights reserved. This information is not intended as a substitute for professional medical care. Always follow yourhealthcare professional's instructions. Additional Information VACCINATE! IT SAVES LIVES! Members of the community who have not yet received the COVID-19 vaccine and would like to receive it can visit one of [facility] vaccine clinics. There are many vaccine clinic locations within the [facility]. For locations and available times, please visit [email or web address]. It is important to note that some COVID mobile vaccine clinics are held outdoors and may be canceled in rainy orstormy conditions. To learn more about pediatric vaccinations (ages 5-11), we invite you to visit the [facility] webpage. [email or web address] learn more about the COVID-19 vaccine, we invite you to visit the [facility] website for a list of frequently asked questions. [email or web address] [facility] Patient Portal Access Instructions: Stay connected with your healthcare team and access your personal medical information anytime with the [facility] Patient Portal. If you would like a full copy of your medical records please contact the [facility] Medical Records Department Wednesday through Wednesday between 8a.m. and 4:30p.m. Please follow the directions below to access the portal: 1.Access the email account you provided upon registration to the hospital.2.Look for an invitation email from [facility].3.Open the email and access the invitation link: Accept Invitation to [facility]4.Fill in the required renner to create your account. Sign into www.[email or web address] Support with your username and password that you created in the above steps to stay up to date. You can then view a summary of results, a summary of your visits, and the ability to download your summaries to your computer or send the information securely to a physician. Remember that your healthcare information is confidential, so carefully consider who you will allow to register on the [facility] Patient Portal for access to your information. You can also access the [facility] Patient Portal on the Pounce. Simply click on Health Records under [employer] and then click on the [place] logo. HOW TO SAFELY DISPOSE OF PRESCRIPTION MEDICATIONS Please use one of the following methods to safely dispose of your unused medications. 1.Use a drug disposal kit: the drug disposal pouch allows you to safely discard your old and unuseddrugs. Ask your nurse to give you one when you are discharged.2.Visit a local take-back location: Many local pharmacies and police departments have programs that collect old and unwanted prescriptiondrugs. Call your local pharmacy or go to http://[email or web address].[email or web address]/[email or web address] to find one close to you.3.Make use of household items: Use cat litter or old coffee grounds to dispose medications if other options arenot available. Mix your drugs with these household products, seal them in an airtight container andthrow it into the garbage. Call [facility]: [phone] to be sure your drugs can be disposed of in this way. Some medicines may require a different approach.4.Never flush your medications down the toilet. IF YOU HAVE BEEN PRESCRIBED AN OPIOIDS FOR PAIN If you have been prescribed an opioid (such as hydrocodone, oxycodone or morphine), it is critical to understand the possible side effects and risks of opioid pain medications. Even when taken as directed, opioids can have several side effects including: Tolerance, meaning you might need to take more of a medication for the same pain relief. Nausea, vomiting and/or constipation. Sleepiness, dizziness, dry mouth, confusion, depression or itching. Physical dependence, meaning you have withdrawal symptoms when a medication is stopped ? this can develop within a few days. KNOW YOUR RESPONSIBILITIES It is important to know exactly how much and how often to take the opioid pain medications you are prescribed. Never take opioids in higher amounts or more often than prescribed. Do not combine opioids with alcohol or other drugs that cause drowsiness, such as benzodiazepines, also known as benzos,including diazepam and alprazolam, muscle relaxants or sleep aids. Never sell or share prescriptionopioids. This is illegal. Store opioids in a secure place and out of reach of others (including children, family, friends and visitors). The last page(s) of this document has been signed and retained as a CHART COPY Signatures Patient Education Materials Upper Extremity Contusion Medication Leaflets My discharge plan and instructions have been reviewed and explained to me and I,NAVIN AUGUST understand my current condition and have read and understand these discharge instructions. I have received a written copy of the plan/instructions. If I have questions, I am aware that I should contact my doctor. 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 There is no radiopaque foreign body. IMPRESSION: No acute fracture or dislocation. Interpreted by: Cr Bowden MD Preliminary Report By: Cr Bowden MD Electronically signed By Cr Bowden MD Dictated Date: 12/11/2021 8:33:23 PM Prelim Date: 12/11/2021 8:34:16 PM Sign Date: 12/11/2021 8:34:16 PM Ordering Provider: BALDOMERO HEAD [facility]07-28-2022 Note ORIGINAL EXAMINATION: TWO XRAY VIEWS OF THE RIGHT FOREARM12/11/2021 8:24 pm FOREARM - 2 VIEWS RIGHT COMPARISON: None HISTORY: ORDERING SYSTEM PROVIDED HISTORY: Reason for Exam: injury FINDINGS: No acute fracture or dislocation is identified. There is no radiopaque foreign body. IMPRESSION: No acute fracture or dislocation. Interpreted by: Cr Bowden MD Preliminary Report By: Cr Bowden MD Electronically signed By Cr Bowden MD Dictated Date: 12/11/2021 8:33:23 PM Prelim Date: 12/11/2021 8:34:16 PM Sign Date: 12/11/2021 8:34:16 PM Ordering Provider: [facility]07-15-2022 Miscellaneous Notes* Telephone Encounter - Liliana Shah RN - 11/28/2021 2:33 PM EDT Patient phones requesting refills as follows: Pending Prescriptions Disp Refills FENTANYL 50 MCG/HR TRANSDERMAL PATCH 15 Patch 0 Sig: APPLY 1 PATCH TO SKIN EVERY OTHER DAY DIRECTED Do not start before November 30, 2021. JOAQUIN Class: C-II BRENDA: No Please review and advise. Liliana Shah RN [facility] Miscellaneous Notes* Telephone Encounter - Liliana Shah RN - 11/28/2021 10:46 AM EDT Patient phones requesting refills as follows: Pending Prescriptions Disp Refills FENTANYL 50 MCG/HR TRANSDERMAL PATCH 15 Patch 0 Sig: APPLY 1 PATCH TO SKIN EVERY OTHER DAY DIRECTED Do not start before November 30, 2021. JOAQUIN Class: C-II BRENDA: No Please review and advise. Liliana Shah RN [facility] Hospital Discharge instructions Patient Education 10/20/2021 17:21:11 Abdominal Pain Abdominal Pain Abdominal pain is pain in the stomach or belly area. Everyone has this pain from time to time. In many cases it goes away on its own. But abdominal pain can sometimes be due to a serious problem, such as appendicitis. So it s important to know when to get help. Causes of abdominal pain There are many possible causes of abdominal pain. Common causes in adults include: Constipation, diarrhea, or gas Stomach acid flowing back up into the esophagus (acid reflux or heartburn) Severe acid reflux, called GERD (gastroesophageal reflux disease) A sore in the lining of the stomach or small intestine (peptic ulcer) Inflammation of the gallbladder, liver, or pancreas Gallstones or kidney stones Appendicitis Intestinal blockage An internal organ pushing through a muscle or other tissue (hernia) Urinary tract infections In women, menstrual cramps, fibroids, ovarian cysts, pelvic inflammatory disease, or endometriosis Inflammation or infection of the intestines, including Crohn's disease and ulcerative colitis Irritable bowel syndrome Diagnosing the cause of abdominal pain Your healthcare provider will give you a physical exam help find the cause of your pain. If needed,you will have tests. Belly pain has many possible causes. So it can be hard to find the reason for your pain. Giving details about your pain can help. Tell your provider where and when you feel the pain, and what makes it better or worse. Also let your provider know if you have other symptoms such as: Fever Tiredness Upset stomach (nausea) Vomiting Changes in bathroom habits Blood in the stool or black, tarry stool Weight loss that you can't explain (involuntary weight loss?) Also report any family history of stomach or intestinal problems, or cancers. Tell your provider about all your alcohol use and drug use. Tell your provider about all medicines you use, including herbs, vitamins, and supplements. Treating abdominal pain Some causes of pain need emergency medical treatment right away. These include appendicitis or a bowel blockage. Other problems can be treated with rest, fluids, or medicines. Your healthcare provider can give you specific instructions for treatment or self-care based on what is causing your pain. If you have vomiting or diarrhea, sip water or other clear fluids. When you are ready to eat solid foods again, start with small amounts of ltlh-oh-qsljub, low- fat foods. These include apple sauce, toast, or crackers. When to get medical care Call 911 or go to the hospital right away if you: Can t pass stool and are vomiting Are vomiting blood or have bloody diarrhea or black, tarry diarrhea Have chest, neck, or shoulder pain Feel like you might pass out Have pain in your shoulder blades with nausea Have sudden, severe belly pain Have new, severe pain unlike any you have felt before Have a belly that is rigid, hard, and hurts to touch Call your healthcare provider if you have: Pain for more than 5 days Bloating for more than 2 days Diarrhea for more than 5 days A fever of 100.4 F (38 C) or higher, or as directed by your healthcare provider Pain that gets worse Weight loss for no reason Continued lack of appetite Blood in your stool How to prevent abdominal pain Here are some tips to help prevent abdominal pain: Eat smaller amounts of food at each meal. Don't eat greasy, fried, or other high-fat foods. Don't eat foods that give you gas. Exercise regularly. Drink plenty of fluids. To help prevent GERD symptoms: Quit smoking. Reduce alcohol and foods that increase stomach acid. Don't use aspirin or docm-rip-vijagqf pain and fever medicines, if possible. This includes nonsteroidal anti-inflammatory drugs (NSAIDs). Lose excess weight. Finish eating at least 2 hours before you go to bed or lie down. Raise the head of your bed. [id number] [employer]. [address] [place] [address]. All rights reserved. This information is not intended as a substitute for professional medical care. Always follow yourhealthcare professional's instructions. Follow Up Care 10/20/2021 14:48:46 With:WILL REYES MD Address: [facility]/[address] [place] [address]- When:2-4 days [facility] 06-06-2022 Evaluation + Plan note Diagnostic Tests Pending * Urinalysis 10/20/21 [facility] 2022 Hospital Discharge instructions Patient Education 08/01/2021 22:02:27 Your Mouth: Keeping It Healthy Your Mouth: Keeping It Healthy Have you ever thought about how much you use your mouth? Without it, you couldn t talk with your friends, enjoy your food, or even laugh at a joke. Do you care for your hardworking mouth as well as you should? If not, tooth decay and gum disease could be putting your smile in danger. Take control now to keep your mouth healthy. Benefits of a healthy mouth Why bother caring for your teeth and gums? For one thing, what goes on in your mouth can affect therest of your body. Poor oral health is linked to problems such as heart disease, stroke, and diabetes. But that s not all. If you re , caring for your teeth and gums can help make sure your baby is born on time and healthy. Good oral health can also: Help you chew and digest your food Keep your mouth comfortable and pain-free Help you speak clearly Keep your breath fresh Keep you looking and feeling good. And when you feel good about your mouth, you re more likely to smile! Your oral health At dental visits, you will be asked about signs of problems. Before your visit, think about the answers to these questions: Are your teeth sensitive to heat or cold? Do your teeth hurt if you have sweet foods or drinks? Has the way you bite down changed? Do you feel pain when you bite down? Do any of your teeth feel loose? Do you have bad breath? Are your gums swollen, puffy, or sore? Do your gums bleed when you floss or brush? Has the color of your gums changed? Have your gums pulled back from your teeth? Are you happy with your smile? [id number] [employer] [place] [address]. All rights reserved. This information is not intended as a substitute for professional medical care. Always follow yourhealthcare professional's instructions. Follow Up Care 08/01/2021 21:40:00 With:WILL REYES MD Address: [facility] [address] [place] [address] [address] [place] [address]- When:2-4 days [facility] 09-16-2015 History of Past illness Narrative* Problem Noted Date Resolved Date Chronic back pain 01/30/2015 12/29/2021 Pain in joint, lower leg 01/01/2008 022 Abnormal weight gain 05/19/2007 01/15/2010 Lumbago 12/29/2021 documented as of this encounter (statuses as of 12/30/2021) [facility] History of Past illness Narrative* Problem Noted Date Resolved Date Chronic back pain 01/30/2015 12/29/2021 Pain in joint, lower leg 01/01/2008 022 Abnormal weight gain 05/19/2007 01/15/2010 Lumbago 12/29/2021 documented as of this encounter (statuses as of 01/06/2022) [address]16-2015 History of Past illness Narrative* Problem Noted Date Resolved Date Chronic back pain 01/30/2015 12/29/2021 Pain in joint, lower leg 01/01/2008 022 Abnormal weight gain 05/19/2007 01/15/2010 Lumbago 12/29/2021 documented as of this encounter (statuses as of 2022) [facility] of Past illness Narrative* Problem Noted Date Resolved Date Chronic back pain 01/30/2015 12/29/2021 Pain in joint, lower leg 01/01/2008 022 Abnormal weight gain 05/19/2007 01/15/2010 Lumbago 12/29/2021 documented as of this encounter (statuses as of 03/23/2022) [facility] of Past illness Narrative* Problem Noted Date Resolved Date Chronic back pain 01/30/2015 12/29/2021 Pain in joint, lower leg 01/01/2008 022 Abnormal weight gain 05/19/2007 01/15/2010 Lumbago 12/29/2021 documented as of this encounter (statuses as of 04/15/2022) [facility] of Past illness Narrative* Problem Noted Date Resolved Date Chronic back pain 01/30/2015 12/29/2021 Pain in joint, lower leg 01/01/2008 022 Abnormal weight gain 05/19/2007 01/15/2010 Lumbago 12/29/2021 documented as of this encounter (statuses as of 04/20/2022) [address]16-2015 History of Past illness Narrative* Problem Noted Date Resolved Date Chronic back pain 01/30/2015 12/29/2021 Pain in joint, lower leg 01/01/2008 022 Abnormal weight gain 05/19/2007 01/15/2010 Lumbago 12/29/2021 documented as of this encounter (statuses as of 05/04/2022) [address]16-2015 History of Past illness Narrative* Problem Noted Date Resolved Date Chronic back pain 01/30/2015 12/29/2021 Pain in joint, lower leg 01/01/2008 022 Abnormal weight gain 05/19/2007 01/15/2010 Lumbago 12/29/2021 documented as of this encounter (statuses as of 05/20/2022) [facility] of Past illness Narrative* Problem Noted Date Resolved Date Chronic back pain 01/30/2015 12/29/2021 Pain in joint, lower leg 01/01/2008 022 Abnormal weight gain 05/19/2007 01/15/2010 Lumbago 12/29/2021 documented as of this encounter (statuses as of 06/11/2022) [facility] of Past illness Narrative* Problem Noted Date Resolved Date Chronic back pain 01/30/2015 12/29/2021 Pain in joint, lower leg 01/01/2008 022 Abnormal weight gain 05/19/2007 01/15/2010 Lumbago 12/29/2021 documented as of this encounter (statuses as of 07/15/2022) [facility] Narrative* Problem Noted Date Resolved Date Chronic back pain 01/30/2015 12/29/2021 Pain in joint, lower leg 01/01/2008 022 Abnormal weight gain 05/19/2007 01/15/2010 Lumbago 12/29/2021 documented as of this encounter (statuses as of 07/23/2022) [facility] of Past illness Narrative* Problem Noted Date Resolved Date Chronic back pain 01/30/2015 12/29/2021 Pain in joint, lower leg 01/01/2008 022 Abnormal weight gain 05/19/2007 01/15/2010 Lumbago 12/29/2021 documented as of this encounter (statuses as of 07/28/2022) [facility] of [facility] Narrative* Problem Noted Date Resolved Date Chronic back pain 01/30/2015 12/29/2021 Pain in joint, lower leg 01/01/2008 022 Abnormal weight gain 05/19/2007 01/15/2010 Lumbago 12/29/2021 documented as of this encounter (statuses as of 08/12/2022) [facility] of [facility] illness Narrative* Problem Noted Date Resolved Date Chronic back pain 01/30/2015 12/29/2021 Pain in joint, lower leg 01/01/2008 022 Abnormal weight gain 05/19/2007 01/15/2010 Lumbago 12/29/2021 documented as of this encounter (statuses as of 10/19/2022) [facility] of [facility] Narrative* Problem Noted Date Resolved Date Chronic back pain 01/30/2015 12/29/2021 Pain in joint, lower leg 01/01/2008 022 Abnormal weight gain 05/19/2007 01/15/2010 Lumbago 12/29/2021 documented as of this encounter (statuses as of 10/21/2022) [facility] of Past illness Narrative* Problem Noted Date Resolved Date Chronic back pain 01/30/2015 12/29/2021 Pain in joint, lower leg 01/01/2008 022 Abnormal weight gain 05/19/2007 01/15/2010 Lumbago 12/29/2021 documented as of this encounter (statuses as of 11/05/2022) [facility] of [facility] illness Narrative* Problem Noted Date Resolved Date Abnormal weight gain 05/19/2007 01/15/2010 documented as of this encounter (statuses as of 09/02/2021) [facility] Narrative* Problem Noted Date Resolved Date Abnormal weight gain 05/19/2007 01/15/2010 documented as of this encounter (statuses as of 10/15/2021) [facility] Narrative* Problem Noted Date Resolved Date Abnormal weight gain 05/19/2007 01/15/2010 documented as of this encounter (statuses as of 11/28/2021) [facility] Narrative* Problem Noted Date Resolved Date Abnormal weight gain 05/19/2007 01/15/2010 documented as of this encounter (statuses as of 11/28/2021) [facility] No data available for this section [facility] Evaluation note* Diagnosis Degeneration of cervical intervertebral disc- Primary [facility] Degeneration of cervical intervertebral disc [facility] Diagnosis Degeneration of cervical intervertebral disc [facility] Diagnosis Degeneration of cervical intervertebral disc [facility] Diagnosis Degeneration of cervical intervertebral disc [facility] Diagnosis Fibromyalgia- Primary Mylagia and myositis, unspecified Degeneration of intervertebral disc of lumbar region Lumbar spondylosis Lumbosacral spondylosis without myelopathy Sacroiliitis (HCC) Sacroiliitis, not elsewhere classified Degeneration of intervertebral disc of cervical region Chronic knee pain, unspecified laterality [facility] Diagnosis Degeneration of cervical intervertebral disc [facility] Diagnosis Fibromyalgia- Primary Mylagia and myositis, unspecified Degeneration of intervertebral disc of lumbar region Lumbar spondylosis Lumbosacral spondylosis without myelopathy Sacroiliitis (HCC) Sacroiliitis, not elsewhere classified Degeneration of intervertebral disc of cervical region Chronic knee pain, unspecified laterality [facility] Diagnosis Degeneration of cervical intervertebral disc [facility] Diagnosis Degeneration of cervical intervertebral disc- Primary Fibromyalgia Mylagia and myositis, unspecified Degeneration of intervertebral disc of lumbar region Lumbar spondylosis Lumbosacral spondylosis without myelopathy Sacroiliitis (HCC) Sacroiliitis, not elsewhere classified Chronic knee pain, unspecified laterality [facility] Diagnosis Fibromyalgia- Primary Mylagia and myositis, unspecified Degeneration of intervertebral disc of lumbar region Lumbar spondylosis Lumbosacral spondylosis without myelopathy Degeneration of cervical intervertebral disc Sacroiliitis (HCC) Sacroiliitis, not elsewhere classified Chronic knee pain, unspecified laterality [facility] Diagnosis Degeneration of intervertebral disc of lumbar region [facility] Diagnosis Fibromyalgia Mylagia and myositis, unspecified [facility] Diagnosis Degeneration of intervertebral disc of lumbar region [facility] No data available for this section [facility] Summary Purpose Family History No Family History Records FoundNo Family History Records FoundNo Family History Records FoundNo Family History Records Found Advance Directives No Advanced Directives Records FoundNo Advanced Directives Records FoundNo Advanced Directives Records FoundNo Advanced Directives Records Found Additional Source Comments INFORMATION SOURCE (unrecogn ized section and content) DATE CREATED AUTHOR AUTHOR'S ORGANIZ ATION 12/29/2021 [facility] ([place]) DATE CREATED AUTHOR AUTHOR'S ORGANIZ ATION 10/25/2022 [facility] DATE CREATED AUTHOR AUTHOR'S ORGANIZ ATION 11/06/2022 [facility]ter Source Comments (unrecognize d section and content) In the event this informatio n is protected by the Federal Confidentiality of Alcohol and Drug Abuse Patient Records regulations: The Federal rules restrict any use of the information to criminally investigate or prosecute any alcohol or drug abuse patient.[facility] the event this information is protected by the Federal Confidentiality of Alcohol and Drug Abuse Patient Records regulations: The Federal rules restrict any use of the information to criminally investigate or prosecute any alcohol or drug abuse patient.[facility] the event this information is protected by the Federal Confidentiality of Alcohol and Drug Abuse Patient Records regulations: The Federal rules restrict any use of the information to criminally investigate or prosecute any alcohol or drug abuse patient.[facility] the event this information is protected by the Federal Confidentiality of Alcohol and Drug Abuse Patient Records regulations: The Federal rules restrict any use of the information to criminally investigate or prosecute any alcohol or drug abuse patient.[facility] [facility] HospitalIn the event this information is protected by the Federal Confidentiality of Alcohol and Drug Abuse Patient Records regulations: The Federal rules restrict any use of the information to criminally investigate or prosecute any alcohol or drug abuse patient.[facility]In the event this information is protected by the Federal Confidentiality of Alcohol and Drug Abuse Patient Records regulations: The Federal rules restrict any use of the information to criminally investigate or prosecute any alcohol or drug abuse patient.[facility]In the event this information is protected by the Federal Confidentiality of Alcohol and Drug Abuse Patient Records regulations: The Federal rules restrict any use of the information to criminally investigate or prosecute any alcohol or drug abuse patient.[facility]In the event this information is protected by the Federal Confidentiality of Alcohol and Drug Abuse Patient Records regulations: The Federal rules restrict any use of the information to criminally investigate or prosecute any alcohol or drug abuse patient.[facility] HospitalIn the event this information is protected by the Federal Confidentiality of Alcohol and Drug Abuse Patient Records regulations: The Federal rules restrict any use of the information to criminally investigate or prosecute any alcohol or drug abuse patient.[facility] HospitalIn the event this information is protected by the Federal Confidentiality of Alcohol and Drug Abuse Patient Records regulations: The Federal rules restrict any use of the information to criminally investigate or prosecute any alcohol or drug abuse patient.[facility] HospitalIn the event this information is protected by the Federal Confidentiality of Alcohol and Drug Abuse Patient Records regulations: The Federal rules restrict any use of the information to criminally investigate or prosecute any alcohol or drug abuse patient.[facility] HospitalIn the event this information is protected by the Federal Confidentiality of Alcohol and Drug Abuse Patient Records regulations: The Federal rules restrict any use of the information to criminally investigate or prosecute any alcohol or drug abuse patient.[facility] HospitalIn the event this information is protected by the Federal Confidentiality of Alcohol and Drug Abuse Patient Records regulations: The Federal rules restrict any use of the information to criminally investigate or prosecute any alcohol or drug abuse patient.[facility] HospitalIn the event this information is protected by the Federal Confidentiality of Alcohol and Drug Abuse Patient Records regulations: The Federal rules restrict any use of the information to criminally investigate or prosecute any alcohol or drug abuse patient.[facility]In the event this information is protected by the Federal Confidentiality of Alcohol and Drug Abuse Patient Records regulations: The Federal rules restrict any use of the information to criminally investigate or prosecute any alcohol or drug abuse patient.[facility] HospitalIn the event this information is protected by the Federal Confidentiality of Alcohol and Drug Abuse Patient Records regulations: The Federal rules restrict any use of the information to criminally investigate or prosecute any alcohol or drug abuse patient.[facility] HospitalIn the event this information is protected by the Federal Confidentiality of Alcohol and Drug Abuse Patient Records regulations: The Federal rules restrict any use of the information to criminally investigate or prosecute any alcohol or drug abuse patient.[facility] HospitalIn the event this information is protected by the Federal Confidentiality of Alcohol and Drug Abuse Patient Records regulations: The Federal rules restrict any use of the information to criminally investigate or prosecute any alcohol or drug abuse patient.[facility] HospitalIn the event this information is protected by the Federal Confidentiality of Alcohol and Drug Abuse Patient Records regulations: The Federal rules restrict any use of the information to criminally investigate or prosecute any alcohol or drug abuse patient.[facility] HospitalIn the event this information is protected by the Federal Confidentiality of Alcohol and Drug Abuse Patient Records regulations: The Federal rules restrict any use of the information to criminally investigate or prosecute any alcohol or drug abuse patient.[facility] Care Teams (unrecognized sec tion and content) Gifts Officer Relationship Specialty Start Date End Date Amy Cristobal Chi PCP - General Family Practice 11/20/11 Gifts Officer Relationship Specialty Start Date End Date Amy, Cristobal Chi PCP - General Family Practice 11/20/11 Gifts Officer Relationship Specialty Start Date End Date Amy, Cristobal Chi PCP - General Family Practice 11/20/11 Gifts Officer Relationship Specialty Start Date End Date Amy, Cristobal Chi PCP - General Family Practice 11/20/11 Gifts Officer Relationship Specialty Start Date End Date Amy, Cristobal Chi PCP - General Family Medicine 11/20/11 Gifts Officer Relationship Specialty Start Date End Date Amy, Cristobal Chi PCP - General Family Medicine 11/20/11 Gifts Officer Relationship Specialty Start Date End Date Amy, Cristobal Chi PCP - General Family Medicine 11/20/11 Gifts Officer Relationship Specialty Start Date End Date Amy, Cristobal Chi PCP - General Family Medicine 11/20/11 Gifts Officer Relationship Specialty Start Date End Date Amy, Cristobal Chi PCP - General Family Medicine 11/20/11 Gifts Officer Relationship Specialty Start Date End Date Amy, Cristobal Chi PCP - General Family Medicine 11/20/11 Gifts Officer Relationship Specialty Start Date End Date Amy, Cristobal Chi PCP - General Family Medicine 11/20/11 Gifts Officer Relationship Specialty Start Date End Date Amy, Cristobal Chi PCP - General Family Medicine 11/20/11 Gifts Officer Relationship Specialty Start Date End Date Amy, Cristobal Chi PCP - General Family Medicine 11/20/11 Gifts Officer Relationship Specialty Start Date End Date Amy, Cristobal Chi PCP - General Family Medicine 11/20/11 Gifts Officer Relationship Specialty Start Date End Date Amy, Cristobal Chi PCP - General Family Medicine 11/20/11 Gifts Officer Relationship Specialty Start Date End Date Amy, Cristobal Chi PCP - General Family Medicine 11/20/11 Reason for Visit (unrecogniz ed section and content) Reason Onset Date Comments Refill Request 12/29/2021 Refill Request 12/30/2021 Reason Onset Date Comments Refill Request 01/06/2022 Reason Onset Date Comments Refill Request 2022 Reason Comments Back Pain Neck Pain Reason Onset Date Comments Refill Request 04/15/2022 Reason Onset Date Comments Refill Request 04/20/2022 Reason Onset Date Comments Refill Request 05/14/2022 Reason Comments Pain Neck, back pain Reason Onset Date Comments Refill Request 07/15/2022 Reason Comments UDS/ patch count Reason Onset Date Comments Refill Request 08/12/2022 Reason Comments Refill Request Reason Onset Date Comments Refill Request 10/20/2022 Reason Comments Patient Update Care Team (unrecognized sect ion and content) Care Team Personnel Name: WILL REYES MD Member Role: Primary Care Physician Address: Address: [facility] [place] [address]- Care Team Related Persons Name: NONE, Care Team Personnel Name: WILL REYES MD Member Role: Primary Care Physician Address: Address: [facility] Care Team Related Persons Name: NONE, FOR RECORDS PERTAINING TO PATIENTS WHO ARE OR HAVE BEEN ENROLLED IN A CHEMICAL DEPENDENCY/SUBSTANCEABUSE PROGRAM, SOME INFORMATION MAY BE OMITTED. This clinical summary was aggregated from multiple sources. Caution should be exercised in using it in the provision of clinical care. This summary normalizes information from multiple sources, and as a consequence, information in this document may materially change the coding, format and clinical context of patient data. In addition, data may be omitted in some cases. CLINICAL DECISIONS SHOULD BE BASED ON THE PRIMARY CLINICAL RECORDS. [employer] provides no warranty or guarantee of the accuracy or completeness of information in this document.
== END | disposition home or self-care (01) ==
LOC: MRI 13:59
PROVIDERS: PCP Family Medicine Geriatric Medicine; Referring Provider Family Medicine Geriatric Medicine; Visit Provider Family Medicine Geriatric Medicine
DX: Z00.00 Encounter for general adult medical examination without abnormal findings (principal)

== ENCOUNTER → 2023-06-21 | Outpatient (CLI) | payer MEDICARE, SELFPAY ==
--- NOTE | 2023-06-21 10:34 | MRI_ITS ---
EXAM: MR HEAD WITHOUT INTRAVENOUS CONTRAST CLINICAL INDICATION: Encephalopathy. Mild cognitive impairment. TECHNIQUE: Multiplanar and multisequence MR images of the brain were obtained without intravenous contrast. COMPARISON: CT head without contrast 04/25/2023. FINDINGS: BRAIN AND EXTRA-AXIAL SPACES: T2 FLAIR hyperintensity foci in the white matter of the cerebral hemispheres are chronic white matter ischemic changes. No intra- or extra-axial hemorrhage. No intracranial mass or mass effect. Posterior fossa structures are unremarkable. Ventricles are appropriate for age. No hydrocephalus. Basal cisterns are patent. No diffusion restriction to suspect acute or subacute ischemic infarct. SELLA: Unremarkable. Normal sella turcica, pituitary gland, infundibular stalk, optic chiasm and hypothalamus. AUDITORY SYSTEM: Unremarkable. The internal auditory canals are patent. BONES/JOINTS: Unremarkable. No discrete lytic or blastic abnormalities. SINUSES: Unremarkable as visualized. Clear. MASTOID AIR CELLS: Unremarkable as visualized. Clear. ORBITS: Unremarkable as visualized. Both globes, extraocular muscles, optic nerves and retrobulbar fat appear unremarkable. VASCULATURE: Unremarkable as visualized. Normal flow voids in the major intracranial circulation. MRI/Brain without Contrast IMPRESSION: 1. No MRI evidence of acute or subacute ischemic infarct or acute intracranial abnormality. 2. A few chronic white matter ischemic changes in both cerebral hemispheres. Electronically Signed: Brian Fink MD at 11:58 EST ,
--- OUTSIDE RECORDS SUMMARY | 2023-06-21 10:50 | XMS RPT_ITS | CCD ---
Author Name Unknown Address [address] [facility] [facility] [address] [place] [address] Organization [facility] Care Team Providers Care Clinical Case Manager Name Role Phone Lisette Rees Unavailable Unavailable Lisette Rees Unavailable Unavailable AMY PATEL, DR SOLIS Primary Care Physician Amy, Cristobal Chi Primary Care Provider DR WILL REYES MD Primary Care Physician Amy, Cristobal Chi Primary Care Provider [phone] Amy, Cristobal Chi Primary Care Provider Amy, [...] gabapentin; Translations: [gabapentin] Drug Allergy 01-31-2013 Rash [facility] Work Phone: (4 sources) levoFLOXacin; Translations: [levofloxacin] Drug Allergy Tongue swelling [facility] Work Phone: Medications Current Medications Medication Drug Class(es) Dates Sig (Normalized) Sig (Original) acetaminophen 325 mg oral capsule (4 sources) Start: 08-24-2018 acetaminophen 325 mg oral capsule Dose : 650 mg =, Oral, q6h, PRN Pain, scale 1-3, # 20 cap(s), 0 Refill(s), Pharmacy: [facility]/pharmacy #[id number] Start Date: 08/24/18 Status: Ordered 72 hr [...] Start: 07-19-2015 PERCOCET 5-325 MG TABS OXYCODONE-ACETAMINOP [facility] [id number] Nelsy East Problems Active Problems Problem Classification [...] current use of drug therapy; Translations: [Other correction (current) drug therapy] Onset: 11-21-2018 11-26-2021 Episodic Other aftercare (1 source) Other correction (current) drug therapy; Translations: [Other correction (current) drug therapy] Onset: 11-26-2021 Episodic Other [...] pressure 68 mm[Hg] Nelsy ADAMS-Trino Work Phone: [facility] 03-23-2022 15:00-0500 Systolic blood pressure 145 mm[Hg] Nelsy ADAMS-C Work Phone: [facility] 03-23-2022 14:59-0500 Body temperature 97.7 [degF] Nelsy ADAMS-C Work Phone: [facility] 03-23-2022 14:59-0500 Heart rate 86 /min Nelsy ADAMS-C Work Phone: [facility] 03-23-2022 14:59-0500 Respiratory rate 18 /min Nelsy ADAMS-C Work Phone: [facility] 03-23-2022 14:59-0500 SaO2% (BldA) [Mass fraction] 93 % Nelsy Chaudhari PA-C Work Phone: [facility] 12-26-2021 11:32-0400 Body temperature 98.78 [degF] CARMEN HAIR FIGURINE MAKER-SWEEPING COMPOUND BLENDER [facility] 12-26-2021 11:32-0400 Diastolic blood pressure 77 mm[Hg] CARMEN HAIR FIG[employer]INE MAK[employer]SWEEPING COMPOUND BLENDER [facility] 12-26-2021 11:32-0400 Heart rate 66 /min CARMEN HAIR FIG[employer]INE MAK[employer]SWEEPING COMPOUND BL[employer]ER [facility] 12-26-2021 11:32-0400 Reason For Taking VItal Signs CARMEN KAPPER FIGURINE MAKER[employer]SWEEPING COMPOUND BLENDER [facility] 12-26-2021 11:32-0400 Systolic blood pressure 119 mm[Hg] CARMEN KAPPER FIGURINE MAKER[employer]SWEEPING COMPOUND BL[employer]ER [facility] 12-26-2021 07:36-0400 Reason For Taking VItal Signs CARMEN KAPPER FIGURINE MAKER[employer]SWEEPING COMPOUND BL[employer]ER [facility] 12-26-2021 07:20-0400 Body temperature 97.7 [degF] CARMEN KAPPER FIGURINE MAK[employer]SWEEPING COMPOUND BL[employer]ER [facility] 12-26-2021 07:20-0400 Diastolic blood pressure 81 mm[Hg] CARMEN KAPPER FIGURINE MAKER[employer]SWEEPING COMPOUND BL[employer]ER [facility] 12-26-2021 07:20-0400 Heart rate 60 /min CARMEN KAPPER FIGURINE MAKER[employer]SWEEPING COMPOUND BLENDER [facility] 12-26-2021 07:20-0400 Reason For Taking VItal Signs CARMEN KAPPER FIGURINE MAKER[employer]SWEEPING COMPOUND BL[employer]ER [facility] 12-26-2021 07:20-0400 Respiratory rate 16 /min CARMEN KAPPER FIGURINE MAK[employer]SWEEPING COMPOUND BL[employer]ER [facility] 12-26-2021 07:20-0400 Systolic blood pressure 120 mm[Hg] CARMEN KAPPER FIGURINE MAKER[employer]SWEEPING COMPOUND BLENDER [facility] 12-26-2021 06:16-0400 Heart rate 63 /min CARMEN KAPPER FIGURINE MAKER[employer]SWEEPING COMPOUND BL[employer]ER [facility] 12-26-2021 04:10-0400 Body temperature 97.52 [degF] CARMEN KAPPER FIGURINE MAKER[employer]SWEEPING COMPOUND BL[employer]ER [facility] 12-26-2021 04:10-0400 Diastolic blood pressure 77 mm[Hg] CARMEN KAPPER FIGURINE MAKER[employer]SWEEPING COMPOUND BL[employer]ER [facility] 12-26-2021 04:10-0400 Mean blood pressure 101 mm[Hg] CARMEN KAPPER FIGURINE MAKER[employer]SWEEPING COMPOUND BLENDER [facility] 12-26-2021 04:10-0400 Respiratory rate 16 /min CARMEN KAPPER FIGURINE MAKER[employer]SWEEPING COMPOUND BL[employer]ER [facility] 12-26-2021 04:10-0400 Systolic blood pressure 150 mm[Hg] CARMEN KAPPER FIGURINE MAKER[employer]SWEEPING COMPOUND BL[employer]ER [facility] 12-26-2021 00:30-0400 Mean blood pressure 93 mm[Hg] CARMEN KAPPER FIGURINE MAKER[employer]SWEEPING COMPOUND BLENDER [facility] 12-26-2021 00:30-0400 Respiratory rate 18 /min CARMEN KAPPER FIGURINE MAKER[employer]SWEEPING COMPOUND BL[employer]ER [facility] 12-25-2021 19:04-0400 Mean blood pressure 116 mm[Hg] CARMEN KAPPER FIGURINE MAKER[employer]SWEEPING COMPOUND BL[employer]ER [facility] 12-25-2021 16:53-0400 Heart rate 66 /min CARMEN KAPPER FIGURINE MAKER[employer]SWEEPING COMPOUND BLENDER [facility] 12-25-2021 14:22-0400 Heart rate 66 /min CARMEN KAPPER FIGURINE MAKER[employer]SWEEPING COMP[employer] BL[employer] [facility] 12-25-2021 14:18-0400 Body height 150 cm CARMEN KAPPER FIG[employer]INE MAK[employer]SWEEPING COMPOUND BL[employer]ER [facility] 12-25-2021 14:18-0400 Body weight 65.4 kg CARMEN KAPPER FIG[employer]INE [employer]SWEEPING [employer] [facility] 12-25-2021 14:18-0400 Body weight 29.07 kg/m2 CARMEN HAIR FIG[employer]INE MAK[employer]SWEEPING COMP[employer] BL[employer] [facility] 12-25-2021 13:19-0400 Heart rate 69 /min CARMEN KINGOSMAN FIGURINE MAKER-SWEEPING COMPOUND BL[employer]ER [facility] 12-11-2021 19:48-0400 Body height 149.9 cm BALDOMERO DURESKA DO [facility] 12-11-2021 19:48-0400 Body temperature 98.06 [degF] BALDOMERO DURESKA DO [facility] 12-11-2021 19:48-0400 Body weight 63.6 kg BALDOMERO DURESKA DO [facility] 12-11-2021 19:48-0400 Diastolic blood pressure 86 mm[Hg] BALDOMERO DURESKA DO [facility] 12-11-2021 19:48-0400 Heart rate 90 /min BALDOMERO DURESKA DO [facility] 12-11-2021 19:48-0400 Respiratory rate 18 /min BALDOMERO DURESKA DO [facility] 12-11-2021 19:48-0400 Systolic blood pressure 140 mm[Hg] BALDOMERO DURESKA DO [facility] 10-20-2021 14:58-0400 Body temperature 98.42 [degF] KRYSTAL VALLADARES MD [facility] 10-20-2021 14:58-0400 Body weight 63.6 kg KRYSTAL VALLADARES MD [facility] 10-20-2021 14:58-0400 Diastolic blood pressure 80 mm[Hg] KRYSTAL VALLADARES MD [facility] 10-20-2021 14:58-0400 Heart rate 82 /min KRYSTAL VALLADARES MD [facility] 10-20-2021 14:58-0400 Respiratory rate 18 /min KRYSTAL VALLADARES MD [facility] 10-20-2021 14:58-0400 Systolic blood pressure 127 mm[Hg] KRYSTAL VALLADARES MD [facility] 08-01-2021 22:25-0400 Respiratory rate 18 /min TOMMY DISLAT DO [facility] 08-01-2021 21:52-0400 Body height 152.4 cm TOMMY FROMMELT DO [facility] 08-01-2021 21:52-0400 Body temperature 97.34 [degF] TOMMY DISLAT DO [facility] 08-01-2021 21:52-0400 Body weight 68.2 kg TOMMY FROMMELT DO [facility] 08-01-2021 21:52-0400 Diastolic blood pressure 84 mm[Hg] TOMMY FROMMELT DO [facility] 08-01-2021 21:52-0400 Heart rate 81 /min TOMMY DISLAT DO [facility] 08-01-2021 21:52-0400 Respiratory rate 16 /min TOMMY DISLAT DO [facility] 08-01-2021 21:52-0400 Systolic blood pressure 159 mm[Hg] TOMMY DISLAT DO [facility] 01-11-2017 15:29-0400 BMI (Body Mass Index) 26.48 kg/m2 [facility] Work Phone: 01-11-2017 15:29-0400 BP Diastolic 93 mm[Hg] [facility] Work Phone: 01-11-2017 15:29-0400 BP Systolic 133 mm[Hg] [facility] Work Phone: 01-11-2017 15:29-0400 Height 154.31 cm [facility] Work Phone: 01-11-2017 15:29-0400 Pulse (Heart Rate) 65 /min [facility] Work Phone: 01-11-2017 15:29-0400 Respiratory Rate 16 /min [facility] Work Phone: 01-11-2017 15:29-0400 Weight 63.05 kg [facility] Work Phone: 02-03-2011 10:14-0400 Body Temperature 97.8 [degF] [facility] Work Phone: Encounters Encounter Date Encounter Type Care Provider Facility Start: 11-05-2022 Telephone encounter Neftaly Coker MD Work Phone: Pain Management Procedures Date Procedure Procedure Detail Performing Clinician Start: 08-24-2018 Diagnostic endoscopi c examination of ovary TOMMY WOLFF DO Plan of Treatment Date Care Activity Detail Author Start: 01-15-2023 Influenza vaccination INFLUENZA (Season Ended) [facility] Start: 01-15-2022 Influenza vaccination [facility] Start: 07-30-2021 COVID-19 VACCINE (4 - Booster for Moderna series) COVID-19 VACCINE (4 - Booster for Moderna series) [facility] Start: 05-27-2021 COVID-19 VACCINE (4 - Booster for Moderna series) COVID-19 VACCINE (4 - Booster for Moderna series) [facility] Start: 02-14-2018 DIABETES SCREEN DIABETES SCREEN [facility] Start: 01-27-2017 End: 01-27-2017 Appointment Appointment [facility] Work Phone: Start: 01-11-2017 End: 01-11-2017 Diagnostic colonoscopy Colonoscopy [facility] Work Phone: Start: 01-11-2017 End: 01-12-2017 Follow Up Appt Other Follow Up Appt Other [facility] Work Phone: Start: 12-10-2016 HPV TESTING HPV TESTING [facility] Start: 12-10-2016 PAP TESTING PAP TESTING [facility] Start: 04-03-2015 End: 04-03-2015 Mri jnt of lwr extre w/o dye MRI Joint Lower Extremity [facility] Work Phone: Start: 04-03-2015 End: 04-03-2015 X-ray exam, knee, 4 or more X-Ray, Knee [facility] Work Phone: Start: 03-06-2014 LIPID SCREEN LIPID SCREEN [facility] Start: 02-21-2014 Mammography MAMMOGRAM [facility] Start: 01-15-2011 Colonoscopy COLONOSCOPY [facility] Start: 01-15-2011 COLORECTAL CANCER SCREENING COLORECTAL CANCER SCREENING [facility] Start: 2009 Influenza vaccination LUNG CANCER SCREENING [facility] Start: 2009 SHINGRIX VACCINE (1 of 2) SHINGRIX VACCINE (1 of 2) [facility] Start: 2004 COLOGUARD (FIT-DNA) COLOGUARD (FIT-DNA) [facility] Start: [address] COLONOGRAPHY [facility] Start: 2004 FECAL OCCULT BLOOD FECAL OCCULT BLOOD [facility] Start: 2004 SIGMOIDOSCOPY SIGMOIDOSCOPY [facility] Start: 02-15-2002 Urine microalbumin profile DTAP,TDAP,TD (1 - Tdap) [facility] Start: 1977 ANNUAL PCP TEAM CHRONIC DISEASE VISIT ANNUAL PCP TEAM CHRONIC DISEASE VISIT [facility] Start: 1977 HEPATITIS C SCREENING HEPATITIS C SCREENING [facility] Start: 1977 HIV SCREENING HIV SCREENING [facility] Start: 1977 SPIROMETRY SPIROMETRY [facility] Start: 1965 PNEUMOCOCCAL (1 - PCV) PNEUMOCOCCAL (1 - PCV) [facility] Start: 1964 COVID-19 VACCINE (#1) COVID-19 VACCINE (#1) [facility] Start: 1964 COVID-19 VACCINE (1) COVID-19 VACCINE (1) [facility] Start: 1959 COVID-19 VACCINE (#1) COVID-19 VACCINE (#1) [facility] Immunizations Immunization Date Immunization Notes Care Provider Fa cili 04-01-2021 influenza virus vacc ine, unspecified formulation [employer]MEN [employer]EEPING COMPOUND BL[employer] [facility] 04-01-2021 pneumococcal polysaccharide vaccine, 23 valent CARMEN HAIR FIG[employer]SWEEPING [employer] [facility] 04-01-2021 SARS-CoV-2 (COVID-19 ) mRNA-1273 vaccine [employer]MEN HA[employer]SWEEPING COMP[employer] BL[employer] [facility] 11-15-2020 SARS-CoV-2 (COVID-19 ) mRNA-1273 vaccine CARMEN HAIR FIG[employer]INE [employer]SWEEPING COMP[employer] BL[employer] [facility] 10-08-2020 SARS-CoV-2 (COVID-19 ) mRNA-1273 vaccine CARMEN KINGOSMAN FIGURINE MAKER-SWEEPING COMPOUND BLENDER [facility] 05-29-2020 influenza virus vacc ine, unspecified formulation CARMEN KINGOSMAN FIGURINE MAKER-SWEEPING COMPOUND BLENDER [facility] 05-29-2020 pneumococcal polysaccharide vaccine, 23 valent CARMENBlaine HAIR FIGURINE MAKER-SWEEPING COMPOUND BLENDER [facility] 02-16-2018 influenza virus vacc ine, unspecified formulation CARMEN KINGOSMAN FIGURINE MAKER[employer]SWEEPING COMPOUND BL[employer]ER [facility] 06-10-2017 influenza virus vacc ine, unspecified formulation CARMEN OLIVER FIGURINE MAKER-SWEEPING COMPOUND BLENDER [facility] 02-14-2009 influenza virus vacc ine, unspecified formulation Nelsy Chaudhari PA-C Work Phone: [facility] Work Phone: 04-06-2007 influenza virus vacc ine, unspecified formulation Nelsy Chaudhari PA-C Work Phone: [facility] Work Phone: 02-14-2002 tetanus and diphther ia toxoids, adsorbed, preservative free, for adult use (2 Lf of tetanus toxoid and 2 Lf of diphtheria toxoid) Nelsy Chaudhari PA-C Work Phone: [facility] Work Phone: 02-14-2002 tetanus and diphther ia toxoids, adsorbed, preservative free, for adult use (5 Lf of tetanus toxoid and 2 Lf of diphtheria toxoid) TOMMY WOLFF DO [facility] Payers Date Payer Category Payer Medicaid [id number] 2021 Medicaid MEDICAID [facility] MEDICAID [id number] 2021-Present [phone] [address] [place] [address] Medicaid [id number] 2021 Medicaid [id number] 2020 Medicare HUMANA MEDICARE HUMANA GOLD PLUS [id number] 2020-Present [phone] [address] [address] [place] [address] HMO [id number] 2020 Medicare HUMANA MEDICARE HUMANA GOLD PLUS [id number] 2020-Present [phone] [address] [address] [place] [address] HMO [id number] 2020 Private Health Insurance [id number] 2000 Medicare MEDICARE MEDICAR E A AND B [id number] 2000-Present [phone] [address] [address] [place] [address] Medicare [id number] Social History Date Type Detail Facility Start: 03-29-2019 Light tobacco smoker (finding) [facility] Sex Assigned At Female [facility] Start: 12-29-2021 End: 07-23-2022 Tobacco smoking status NHIS Smokes tobacco daily [facility] History of tobacco use Cigarette Smoker [facility] Start: 02-20-2015 End: 09-11-2022 Alcohol intake Current non-drinker of alcohol (finding) [facility] Start: 1960 Sex Assigned At Not on file [facility] Start: 10-04-2021 End: 03-23-2022 Exposure to SARS-CoV-2 (event) Not sure [facility] Start: 12-25-2021 Tobacco smoking status Heavy t obacco smoker (finding) [facility] Start: 12-29-2021 End: 07-23-2022 Cigarettes smoked current (pack per day) - Reported 1 [facility] Start: 12-29-2021 End: 07-23-2022 Tobacco use and exposure Smokeless tobacco non-user [facility] Functional Status Date Assessment Result Facility 12-26-2021 Functional Status bilateral knee high [facility] 12-26-2021 Functional Status Independent [facility] 12-26-2021 Functional Status Apartment [facility] 12-26-2021 Functional Status [facility] 12-26-2021 Functional Status [facility] 12-26-2021 Functional Status Demonstrates C orrect Call Light Use Yes [facility] 12-25-2021 Functional Status Moderate assistance [facility] 12-25-2021 Functional Status Dinner Percent 20 [facility] 12-25-2021 Functional Status Independent [facility] 12-25-2021 Functional Status Sensory Deficits None A [facility] 12-25-2021 Functional Status Environmental Safety Implemented Adequate room lighting, Bed in low position, Call device within reach [facility] 12-25-2021 Functional Status [facility] 12-11-2021 Functional Status Ambulating in guerrero, Ambulating in room, Awake [facility] 12-11-2021 Functional Status Standard Safet y ID band on, Allergy Band on, Call device within reach, Bed in low position, Wheels locked, Upper/Half-Length side-rails up, personal items within reach, Visitor at bedside [facility] 10-20-2021 Functional Status Standard Safet y ID band on, Allergy Band on, Call device within reach, Bed in low position, Wheels locked, Upper/Half-Length side-rails up, Bedside Cart Locked, Safety level maintained [facility] Mental Status Date Assessment Result Facility 12-26-2021 Mental Status Oriented x 4 [facility] 12-26-2021 [facility] 12-26-2021 Mental Status [facility] 12-26-2021 Mental Status [facility] 12-11-2021 Mental Status Orientation Oriented x 4 [facility] 12-11-2021 Mental Status [facility] 10-20-2021 Mental Status Orientation Oriented x 4 [facility] Clinical Notes 05-19-2007 to 11-05-2022 Telephone Encounter [...] Liliana Shah RN documented in this encounter [facility] 10-20-2022 Miscellaneous Notes The following approved medication [...] Liliana Shah RN documented in this encounter [facility] 10-19-2022 Miscellaneous Notes The following approved medication [...] Liliana Shah RN documented in this encounter [facility] 09-11-2022 Note HNO ID: [id number] Author: Nelsy Chaudhari PA-C Service: ? Author Type: Physician Block Breaker Operator Type: Progress Notes Filed: 09/11/2022 2:24 PM Note Text: This note was created using [employer]. Subjective Navin August is a 62 year [...] in office in (more content not included)... [facility] 08-12-2022 Miscellaneous Notes The following approved medication requests have been transmitted electronically. Requested Prescriptions Pending Prescriptions Disp Refills fentaNYL 37.5 mcg/hour pt72 15 Patch 0 Sig: Apply 1 Patch as directed every 48 hours for 30 days. Do not start before August 18, 2022. Nelsy Chaudhari PA-C documented in this encounter [facility] 07-27-2022 Miscellaneous Notes Arrived for UDS Completed In addition, brought fentanyl 50 mcg patches for count ( see AG SPINE PAIN COUNT) Count appropriate Liliana Shah RN July 27, 2022 2:00 PM documented in this encounter [facility] 07-23-2022 Note HNO ID: [id number] Author: Nelsy Chaudhari PA-C Service: ? Author Type: Physician Block Breaker Operator Type: Progress Notes Filed: 07/23/2022 2:48 PM Note Text: I have communicated my name and active licensure. The patient's identity and physical location were verified at the time of this visit. Either the patient or their legal outside dealer sales representative has been informed of the risks and benefits of -- and alternatives to -- treatment through a remote evaluation and consents to proceed with the evaluation remotely. This note was created using [employer]. Subjective Navin August is a 62 year [...] a new order (more content not included)... [facility] 07-23-2022 Instructions Nelsy Chaudhari PA-C - [...] at this time. documented in this encounter [facility] 07-23-2022 History of Presen t illness Narrative I have communicated my name and active licensure. The patient's identity and physical location were verified at the time of this visit. Either the patient or their legal outside dealer sales representative has been informed of the risks and benefits of -- and alternatives to -- treatment through a remote evaluation and consents to proceed with the evaluation remotely. This note was created using [employer]. Subjective Navin August is a 62 year [...] Nelsy Chaudhari PA-C documented in this encounter [facility] 07-15-2022 Miscellaneous Notes The following approved medication [...] Liliana Shah RN documented in this encounter [facility] 06-11-2022 Note HNO ID: [id number] Author: Nelsy Chaudhari PA-C Service: ? Author Type: Physician Block Breaker Operator Type: Progress Notes Filed: 06/11/2022 2:22 PM Note Text: This note was created using [employer]. Subjective Navin August is a 62 year [...] 338.29, ICD10: M25.569, G89.29 Nelsy Chaudhari PA-C [facility] 06-11-2022 Instructions Nelsy Chaudhari PA-C - [...] at this time. documented in this encounter [facility] 06-11-2022 History of Presen t illness Narrative This note was created using [employer]. Subjective Navin August is a 62 year [...] Nelsy Chaudhari PA-C documented in this encounter [facility] 05-14-2022 Miscellaneous Notes The following approved medication [...] Liliana Shah RN documented in this encounter [facility] 05-04-2022 Note HNO ID: [id number] Author: Nelsy Chaudhari PA-C Service: ? Author Type: Physician Block Breaker Operator Type: Progress Notes Filed: 05/04/2022 3:11 PM Note Text: This note was created using [employer]. Subjective Navin August is a 62 year [...] G89.29 Nelsy Rutherford (more content not included)... [facility] 05-04-2022 Instructions Nelsy Chaudhari PA-C - [...] at this time. documented in this encounter [facility] 05-04-2022 History of Presen t illness Narrative This note was created using [employer]. Subjective Navin August is a 62 year [...] Nelsy Chaudhari PA-C documented in this encounter [facility] 04-20-2022 Miscellaneous Notes The following approved medication [...] Liliana Shah RN documented in this encounter [facility] 04-15-2022 Miscellaneous Notes The following approved medication [...] Liliana Shah RN documented in this encounter [facility] 03-23-2022 Note HNO ID: [id number] Author: Nelsy Chaudhari PA-C Service: ? Author Type: Physician Block Breaker Operator Type: Progress Notes Filed: 03/23/2022 3:10 PM Note Text: This note was created using [employer]. Subjective Navin August is a 62 year [...] 720.2, ICD10: M46.1 (more content not included)... [facility] 03-23-2022 Instructions Nelsy Chaudhari PA-C - [...] at this time. documented in this encounter [facility] 03-23-2022 History of Presen t illness Narrative This note was created using [employer]. Subjective Navin August is a 62 year [...] Nelsy Chaudhari PA-C documented in this encounter [facility] 2022 Miscellaneous Notes The following approved medication requests have been transmitted electronically. Requested Prescriptions Pending Prescriptions Disp Refills fentaNYL ([facility]) 50 mcg/hr 15 Patch 0 Sig: APPLY 1 PATCH TO SKIN EVERY OTHER DAY DIRECTED Nelsy Chaudhari PA-C Not available at [facility] in [place] Liliana Shah RN 2022 2:56 PM Requested Prescriptions Pending Prescriptions Disp Refills fentaNYL (DURAGESIC) 50 mcg/hr 15 Patch 0 Sig: APPLY 1 PATCH TO SKIN EVERY OTHER DAY DIRECTED Please review and advise. Liliana Shah RN documented in this encounter [facility] 02-09-2022 Note HNO ID: [id number] Author: Nelsy Chaudhari PA-C Service: ? Author Type: Physician Block Breaker Operator Type: Progress Notes Filed: 02/09/2022 3:27 PM Note Text: This note was created using Techmed Healthcareriter. Subjective Navin August is a 61 year [...] (HCC) - IC (more content not included)... [facility] 01-06-2022 Miscellaneous Notes The following approved [...] Liliana Shah RN documented in this encounter [facility] 12-30-2021 Miscellaneous Notes The following approved medication [...] Liliana Shah RN documented in this encounter [facility] 12-29-2021 Note HNO ID: [id number] Author: Neftaly Coker MD Service: ? Author Type: Physician Type: Progress Notes Filed: 12/30/2021 3:33 PM Note Text: This note was created using [employer] Healthcareriter. Subjective Navin August is a 61 year [...] may contain minor errors. Neftaly Coker MD [facility] 12-26-2021 Nurse Progress note Patient informed [...] Stephanie Hidalgo RN on 12/26/2021 03:25 PM [facility] 12-26-2021 Note Discharge Instructions Thank you for allowing [facility] to assist you with your healthcare needs. The following is important discharge information regarding your hospital visit. Your Care Team Carmen Hair FIGURINE MAKER Your Diagnosis Hypo-osmolality and hyponatremia Bipolar disease, chronic Asthma Bronchitis, chronic Hypothyroid Fibromyalgia Anxiety Medical screening exam What to do next Follow Up Appointments Follow Up with WILL REYES MD When Within 5 to 7 days Why: Message left for PCP office. Recheck BMP in 1 week. Where: [facility] [address] [place], [place] [address] [address] [place] [address]- The Following Activity and Diet Have Been [...] Duration: 4 Days Pickup at [id number] Unchanged acetaminophen (acetaminophen 325 mg oral capsule) [...] for muscle spasm 11 AM Pharmacy Information [id number]: [address], [place] [phone] Please take this list to your next [...] Document Reviewed: 01/13/2012 ExitCare Patient Information 2015 [place] [facility]. This information is not intended to replace advice given to you by your health care provider. Make sure you discuss any questions you have with your health care provider. Additional Information VACCINATE! IT SAVES LIVES! Members of the community who have not yet received the COVID-19 vaccine and would like to receive it can visit one of [facility] vaccine clinics. There are many vaccine clinic locations within the [facility]. For locations and available times, please visit [email or web address] It is important to note that some COVID mobile vaccine clinics are held outdoors and may be canceled in rainy or stormy conditions. To learn more about pediatric vaccinations (ages 5-11), we invite you to visit the [facility] webpage. [email or web address]://www.[email or web address]/p ages/[email or web address]-Bnkfh-Newvfpyihyo-Freq ixqhsl-Osvhk-Bazmvlmct.html To learn more about the COVID-19 vaccine, we invite you to visit the [facility] website for a list of frequently asked questions. [email or web address] nmd-[email or web address]/[email or web address]-E requently_[email or web address]-Questions.pdf [facility] Patient Portal Access Instructions: Stay connected with your healthcare team and access your personal medical information anytime with the [facility] Patient Portal.If you would like a full copy of your medical records, please contact the [facility] Medical Records Department, Wednesday through Wednesday between 8a.m. and 4:30p.m. Please follow the directions below to access the portal: 1.Access the email account you provided upon registration to the [facility].2.Look for an invitation email from [facility].3.Open the email and access the invitation link: Accept Invitation to GabrielaLuv Rink4.Fill in the required renner to create your account. Sign into [email or web address] Inc with your username and password that you [...] you will allow to register on the [facility] Patient Portal for access to your information. You can also access the [facility] Patient Portal on the [employer]. Simply click on Health Records under Health Data and then click on the UrbanIndo logo. HOW TO SAFELY DISPOSE OF PRESCRIPTION [...] Call your local pharmacy or go to http://Secure Mentem.GoodBelly/3N0Xz8f to find one close to you.3.Make use of household items: Use cat litter or old coffee grounds to dispose medications if other options are not available. Mix your drugs with these household products, seal them in an airtight container and throw it into the garbage. Call [facility]: [phone] to be sure your drugs can be [...] CHART COPY. Signatures Patient Education Materials Hyponatremia, Ghhp-pa-Ftyu Medication Leaflets My discharge plan and instructions have been reviewed and explained to me and I,NAVIN AUGUST understand my current condition and have read and understand these discharge instructions. I have received a written copy of the plan/instructions. If I have questions, I am aware that I should contact my doctor. Patient/Customer Experience Manager Signature: Date/Time: Relationship to Patient: Witness Name/Signature: Date/Time: [facility] 12-26-2021 Hospital Discharg e instructions Patient Education 12/26/2021 12:37:18 Hyponatremia, Umlv-tr-Mmsg Hyponatremia Hyponatremia is when the salt (sodium) [...] Document Reviewed: 01/13/2012 ExitCare Patient Information 2015 [employer]. This information is not intended to replace advice given to you by your health care provider. Make sure you discuss any questions you have with your health care provider. Follow Up Care 12/25/2021 09:58:36 With:WILL REYES MD Address: [facility] [address] [place] [address] [address] [place] [address]- When:5 to 7 days Comments:Message left for PCP office. Recheck BMP in 1 week. [facility] 12-26-2021 Nurse Progress note Patient requesting COVID test. Spoke to FIGURINE MAKER and test was ordered. When patient was told how long the test would take she refused. Patient stated, I'm not waiting that long, I refuse. Digitally Signed by Katheryn Delgado LPN on 12/26/2021 01:36 PM [facility] 12-25-2021 Note Date of Service 12/25/2021 Chief Complaint States that she is concerned that she has ammonia toxicity . History of Present Illness Patient is a 61-year-old female, who follows with Dr. Reyes with a past medical history significant for bipolar disorder, asthma, fibromyalgia, and hypothyroidism, presents to [facility] emergency department with the chief complaint of [...] by CARMEN HAIR on 12/25/2021 04:34 PM [facility] 1. Hypo-osmolality and hypon atremia Acute [...] Tests Pending * COVID-19 Only (AO) 12/26/21 [facility] 08-11-2022 Note ORIGINAL EXAMINATION: CT OF [...] 12/25/2021 12:16:50 PM Ordering Provider: KRYSTAL VALLADARES [facility]08-11-2022 Note ORIGINAL EXAMINATION: ONE XRAY VIEW [...] Sign Date: 12/25/2021 12:13:51 PM Ordering Provider: [address]11-2022 Note ORIGINAL EXAMINATION: ONE XRAY VIEW [...] Sign Date: 12/25/2021 12:13:51 PM Ordering Provider: [address]11-2022 Note ORIGINAL EXAMINATION: CT OF THE [...] Date: 12/25/2021 12:16:50 PM [facility] Discharge instructions Patient Education 12/11/2021 [...] body part Frequent bruising for unknown reasons [id number] [employer]. [address] [place] [address]. All rights reserved. This information is not intended as a substitute for professional medical care. Always follow yourhealthcare professional's instructions. Follow Up Care 12/11/2021 19:44:25 With:WILL REYES MD Address: [facility] [address] [place] [address]- When:2-4 days [facility] 07-28-2022 Note Discharge Instructions Thank you for allowing [facility] to assist you with your healthcare needs. [...] Where: [facility] [address] [place] [address]- Allergies Levaquin (Tongue swelling) Neurontin (Rash) Medications [...] body part Frequent bruising for unknown reasons [id number] [employer]. [address] [place] [address], [place] [address]. All rights reserved. This information is not intended as a substitute for professional medical care. Always follow yourhealthcare professional's instructions. Additional Information VACCINATE! IT SAVES LIVES! Members of the community who have not yet received the COVID-19 vaccine and would like to receive it can visit one of [facility] vaccine clinics. There are many vaccine clinic locations within the [facility]. For locations and available times, please visit [email or web address]. It is important to note that some COVID mobile vaccine clinics are held outdoors and may be canceled in rainy orstormy conditions. To learn more about pediatric vaccinations (ages 5-11), we invite you to visit the [facility] webpage. https://www.exactEarth [email or web address]/pages/[email or web address]-Acxzu-Fhrufyecxre-Xtgbptkozm-Odorh-Ulb stions.htmlTo learn more about the COVID-19 vaccine, we invite you to visit the [facility] website for a list of frequently asked questions. [email or web address] _[email or web address].pdf [facility] Patient Portal Access Instructions: Stay connected with your healthcare team and access your personal medical information anytime with the [facility]uv [facility] Patient Portal. If you would like a full copy of your medical records please contact the [facility] Medical Records Department Wednesday through Wednesday between 8a.m. and 4:30p.m. Please follow the directions below to access the portal: 1.Access the email account you provided upon registration to the hospital.2.Look for an invitation email from [facility].3.Open the email and access the invitation link: Accept Invitation to GabrielaLuv Rink4.Fill in the required renner to create your account. Sign into [email or web address] with your username and password that you [...] you will allow to register on the [facility] [facility] Patient Portal for access to your information. You can also access the [facility] Patient Portal on the [employer]. Simply click on Health Records under Audience and then click on the UrbanIndo logo. HOW TO SAFELY DISPOSE OF PRESCRIPTION [...] Call your local pharmacy or go to http://Secure [email or web address]/9H5Ne6k to find one close to you.3.Make use of household items: Use cat litter or old coffee grounds to dispose medications if other options arenot available. Mix your drugs with these household products, seal them in an airtight container andthrow it into the garbage. Call [facility]: [phone] to be sure your drugs can be [...] aware that I should contact my doctor. Patient/Customer Experience Manager Signature: Date/Time: Relationship to Patient: Witness Name/Signature: Date/Time: [facility]07-28-2022 Note ORIGINAL EXAMINATION: TWO XRAY VIEWS [...] 12/11/2021 8:34:16 PM Ordering Provider: BALDOMERO HEAD [facility]07-28-2022 Note ORIGINAL EXAMINATION: TWO XRAY VIEWS [...] Sign Date: 12/11/2021 8:34:16 PM Ordering Provider: [facility]07-15-2022 Miscellaneous Notes* Telephone Encounter - [...] advise. Liliana [facility]iscellaneous Notes* Telephone Encounter - [...] advise. Liliana Shah RN [facility] Hospital Discharge instructions Patient Education 10/20/2021 17:21:11 [...] foods again, start with small amounts of qwly-rt-ygwlqz, low- fat foods. These include apple sauce, [...] increase stomach acid. Don't use aspirin or qzgf-mxb-olcyyfr pain and fever medicines, if possible. This includes nonsteroidal anti-inflammatory drugs (NSAIDs). Lose excess weight. Finish eating at least 2 hours before you go to bed or lie down. Raise the head of your bed. [id number] [employer]. [address] [place] [address]. All rights reserved. This information is not intended as a substitute for professional medical care. Always follow yourhealthcare professional's instructions. Follow Up Care 10/20/2021 14:48:46 With:WILL REYES MD Address: [facility] [place] [address]- When:2-4 days [facility] 06-06-2022 Evaluation + Plan note Diagnostic Tests Pending * Urinalysis 10/20/21 [facility] 2022 Hospital Discharge instructions Patient Education [...] teeth? Are you happy with your smile? [phone] [employer]. [address] [place] [address]. All rights reserved. This information is not intended as a substitute for professional medical care. Always follow yourhealthcare professional's instructions. Follow Up Care 08/01/2021 21:40:00 With:WILL REYES MD Address: [facility] [address] [place] [address] [address] [place] [address]- When:2-4 days [facility] 09-16-2015 History of Past illness Narrative* Problem Noted Date Resolved Date Chronic back pain 01/30/2015 12/29/2021 Pain in joint, lower leg 01/01/2008 022 Abnormal weight gain 05/19/2007 01/15/2010 Lumbago 12/29/2021 documented as of this encounter (statuses as of 12/30/2021) [facility] History of Past illness Narrative* Problem Noted Date Resolved Date Chronic back pain 01/30/2015 12/29/2021 Pain in joint, lower leg 01/01/2008 022 Abnormal weight gain 05/19/2007 01/15/2010 Lumbago 12/29/2021 documented as of this encounter (statuses as of 01/06/2022) [address]16-2015 History of Past illness Narrative* Problem Noted Date Resolved Date Chronic back pain 01/30/2015 12/29/2021 Pain in joint, lower leg 01/01/2008 022 Abnormal weight gain 05/19/2007 01/15/2010 Lumbago 12/29/2021 documented as of this encounter (statuses as of 2022) [facility] History of Past illness Narrative* Problem Noted Date Resolved Date Chronic back pain 01/30/2015 12/29/2021 Pain in joint, lower leg 01/01/2008 022 Abnormal weight gain 05/19/2007 01/15/2010 Lumbago 12/29/2021 documented as of this encounter (statuses as of 03/23/2022) [facility] History of Past illness Narrative* Problem Noted Date Resolved Date Chronic back pain 01/30/2015 12/29/2021 Pain in joint, lower leg 01/01/2008 022 Abnormal weight gain 05/19/2007 01/15/2010 Lumbago 12/29/2021 documented as of this encounter (statuses as of 04/15/2022) [facility] History of Past illness Narrative* Problem Noted Date Resolved Date Chronic back pain 01/30/2015 12/29/2021 Pain in joint, lower leg 01/01/2008 022 Abnormal weight gain 05/19/2007 01/15/2010 Lumbago 12/29/2021 documented as of this encounter (statuses as of 04/20/2022) [address]16-2015 History of Past illness Narrative* Problem Noted Date Resolved Date Chronic back pain 01/30/2015 12/29/2021 Pain in joint, lower leg 01/01/2008 022 Abnormal weight gain 05/19/2007 01/15/2010 Lumbago 12/29/2021 documented as of this encounter (statuses as of 05/04/2022) [address]16-2015 History of Past illness Narrative* Problem Noted Date Resolved Date Chronic back pain 01/30/2015 12/29/2021 Pain in joint, lower leg 01/01/2008 022 Abnormal weight gain 05/19/2007 01/15/2010 Lumbago 12/29/2021 documented as of this encounter (statuses as of 05/20/2022) [facility] History of Past illness Narrative* Problem Noted Date Resolved Date Chronic back pain 01/30/2015 12/29/2021 Pain in joint, lower leg 01/01/2008 022 Abnormal weight gain 05/19/2007 01/15/2010 Lumbago 12/29/2021 documented as of this encounter (statuses as of 06/11/2022) [facility] History of Past illness Narrative* Problem Noted Date Resolved Date Chronic back pain 01/30/2015 12/29/2021 Pain in joint, lower leg 01/01/2008 022 Abnormal weight gain 05/19/2007 01/15/2010 Lumbago 12/29/2021 documented as of this encounter (statuses as of 07/15/2022) [facility] History of Past illness Narrative* Problem Noted Date Resolved Date Chronic back pain 01/30/2015 12/29/2021 Pain in joint, lower leg 01/01/2008 022 Abnormal weight gain 05/19/2007 01/15/2010 Lumbago 12/29/2021 documented as of this encounter (statuses as of 07/23/2022) [facility] History of Past illness Narrative* Problem Noted Date Resolved Date Chronic back pain 01/30/2015 12/29/2021 Pain in joint, lower leg 01/01/2008 022 Abnormal weight gain 05/19/2007 01/15/2010 Lumbago 12/29/2021 documented as of this encounter (statuses as of 07/28/2022) [facility] History of Past illness Narrative* Problem Noted Date Resolved Date Chronic back pain 01/30/2015 12/29/2021 Pain in joint, lower leg 01/01/2008 022 Abnormal weight gain 05/19/2007 01/15/2010 Lumbago 12/29/2021 documented as of this encounter (statuses as of 08/12/2022) [facility] of Past illness Narrative* Problem Noted Date Resolved Date Chronic back pain 01/30/2015 12/29/2021 Pain in joint, lower leg 01/01/2008 022 Abnormal weight gain 05/19/2007 01/15/2010 Lumbago 12/29/2021 documented as of this encounter (statuses as of 10/19/2022) [facility] History of Past illness Narrative* Problem Noted Date Resolved Date Chronic back pain 01/30/2015 12/29/2021 Pain in joint, lower leg 01/01/2008 022 Abnormal weight gain 05/19/2007 01/15/2010 Lumbago 12/29/2021 documented as of this encounter (statuses as of 10/21/2022) [facility] History of Past illness Narrative* Problem Noted Date Resolved Date Chronic back pain 01/30/2015 12/29/2021 Pain in joint, lower leg 01/01/2008 022 Abnormal weight gain 05/19/2007 01/15/2010 Lumbago 12/29/2021 documented as of this encounter (statuses as of 11/05/2022) [facility] History of Past illness Narrative* Problem Noted Date Resolved Date Abnormal weight gain 05/19/2007 01/15/2010 documented as of this encounter (statuses as of 09/02/2021) [facility] of Past illness Narrative* Problem Noted Date Resolved Date Abnormal weight gain 05/19/2007 01/15/2010 documented as of this encounter (statuses as of 10/15/2021) [facility] of [facility] illness Narrative* Problem Noted Date Resolved Date Abnormal weight gain 05/19/2007 01/15/2010 documented as of this encounter (statuses as of 11/28/2021) [facility] of Past illness Narrative* Problem Noted Date Resolved Date Abnormal weight gain 05/19/2007 01/15/2010 documented as of this encounter (statuses as of 11/28/2021) [facility] No data available for [...] note No data available for this section [facility] Summary Purpose Family History No Family History Records FoundNo Family History Records FoundNo Family History Records FoundNo Family History Records Found Advance Directives No Advanced Directives Records FoundNo Advanced Directives Records FoundNo Advanced Directives Records FoundNo Advanced Directives Records Found Additional Source Comments INFORMATION SOURCE (unrecogn ized section and content) DATE CREATED AUTHOR AUTHOR'S ORGANIZ ATION 12/29/2021 [facility] ([place]) DATE CREATED AUTHOR AUTHOR'S ORGANIZ ATION 10/25/2022 [facility] DATE CREATED AUTHOR AUTHOR'S ORGANIZ ATION 11/06/2022 [facility] Source Comments (unrecognize d section and content) In the event this informatio n is protected by the Federal Confidentiality of Alcohol and Drug Abuse Patient Records regulations: The Federal rules restrict any use of the information to criminally investigate or prosecute any alcohol or drug abuse patient.[facility] the event this information is protected by the Federal Confidentiality of Alcohol and Drug Abuse Patient Records regulations: The Federal rules restrict any use of the information to criminally investigate or prosecute any alcohol or drug abuse patient.[facility] Center[facility] the event this information is protected by the Federal Confidentiality of Alcohol and Drug Abuse Patient Records regulations: The Federal rules restrict any use of the information to criminally investigate or prosecute any alcohol or drug abuse patient.[facility] Center[facility] the event this information is protected by the Federal Confidentiality of Alcohol and Drug Abuse Patient Records regulations: The Federal rules restrict any use of the information to criminally investigate or prosecute any alcohol or drug abuse patient.[facility] Center[facility] the event this information is protected by the Federal Confidentiality of Alcohol and Drug Abuse Patient Records regulations: The Federal rules restrict any use of the information to criminally investigate or prosecute any alcohol or drug abuse patient.[facility] CenterIn the event this information is protected by the Federal Confidentiality of Alcohol and Drug Abuse Patient Records regulations: The Federal rules restrict any use of the information to criminally investigate or prosecute any alcohol or drug abuse patient.[facility] CenterIn the event this information is protected by the Federal Confidentiality of Alcohol and Drug Abuse Patient Records regulations: The Federal rules restrict any use of the information to criminally investigate or prosecute any alcohol or drug abuse patient.[facility] CenterIn the event this information is protected by the Federal Confidentiality of Alcohol and Drug Abuse Patient Records regulations: The Federal rules restrict any use of the information to criminally investigate or prosecute any alcohol or drug abuse patient.[facility] CenterIn the event this information is protected by the Federal Confidentiality of Alcohol and Drug Abuse Patient Records regulations: The Federal rules restrict any use of the information to criminally investigate or prosecute any alcohol or drug abuse patient.[facility] CenterIn the event this information is protected by the Federal Confidentiality of Alcohol and Drug Abuse Patient Records regulations: The Federal rules restrict any use of the information to criminally investigate or prosecute any alcohol or drug abuse patient.[facility] CenterIn the event this information is protected by the Federal Confidentiality of Alcohol and Drug Abuse Patient Records regulations: The Federal rules restrict any use of the information to criminally investigate or prosecute any alcohol or drug abuse patient.[facility] CenterIn the event this information is protected by the Federal Confidentiality of Alcohol and Drug Abuse Patient Records regulations: The Federal rules restrict any use of the information to criminally investigate or prosecute any alcohol or drug abuse patient.[facility] CenterIn the event this information is protected by the Federal Confidentiality of Alcohol and Drug Abuse Patient Records regulations: The Federal rules restrict any use of the information to criminally investigate or prosecute any alcohol or drug abuse patient.[facility] CenterIn the event this information is protected by [...] or prosecute any alcohol or drug abuse patient.[facility] CenterIn the event this information is protected by the Federal Confidentiality of Alcohol and Drug Abuse Patient Records regulations: The Federal rules restrict any use of the information to criminally investigate or prosecute any alcohol or drug abuse patient.[facility] CenterIn the event this information is protected by the Federal Confidentiality of Alcohol and Drug Abuse Patient Records regulations: The Federal rules restrict any use of the information to criminally investigate or prosecute any alcohol or drug abuse patient.[facility] Center[facility] the event this information is protected by the Federal Confidentiality of Alcohol and Drug Abuse Patient Records regulations: The Federal rules restrict any use of the information to criminally investigate or prosecute any alcohol or drug abuse patient.[facility] the event this information is protected by the Federal Confidentiality of Alcohol and Drug Abuse Patient Records regulations: The Federal rules restrict any use of the information to criminally investigate or prosecute any alcohol or drug abuse patient.[facility] the event this information is protected by the Federal Confidentiality of Alcohol and Drug Abuse Patient Records regulations: The Federal rules restrict any use of the information to criminally investigate or prosecute any alcohol or drug abuse patient.[facility] Care Teams (unrecognized sec tion and content) Clinical Case Manager Relationship Specialty Start Date End Date Amy Cristobal Chi PCP - General Family Practice 11/20/11 Clinical Case Manager Relationship Specialty Start Date End Date Amy, Cristobal Chi PCP - General Family Practice 11/20/11 Clinical Case Manager Relationship Specialty Start Date End Date Amy, Cristobal Chi PCP - General Family Practice 11/20/11 Clinical Case Manager Relationship Specialty Start Date End Date Amy, Cristobal Chi PCP - General Family Practice 11/20/11 Clinical Case Manager Relationship Specialty Start Date End Date Amy, Cristobal Chi PCP - General Family Medicine 11/20/11 Clinical Case Manager Relationship Specialty Start Date End Date Amy, Cristobal Chi PCP - General Family Medicine 11/20/11 Clinical Case Manager Relationship Specialty Start Date End Date Amy, Cristobal Chi PCP - General Family Medicine 11/20/11 Clinical Case Manager Relationship Specialty Start Date End Date Amy, Cristobal Chi PCP - General Family Medicine 11/20/11 Clinical Case Manager Relationship Specialty Start Date End Date Amy, Cristobal Chi PCP - General Family Medicine 11/20/11 Clinical Case Manager Relationship Specialty Start Date End Date Amy, Cristobal Chi PCP - General Family Medicine 11/20/11 Clinical Case Manager Relationship Specialty Start Date End Date Amy, Cristobal Chi PCP - General Family Medicine 11/20/11 Clinical Case Manager Relationship Specialty Start Date End Date Amy, Cristobal Chi PCP - General Family Medicine 11/20/11 Clinical Case Manager Relationship Specialty Start Date End Date Amy, Cristobal Chi PCP - General Family Medicine 11/20/11 Clinical Case Manager Relationship Specialty Start Date End Date Amy, Cristobal Chi PCP - General Family Medicine 11/20/11 Clinical Case Manager Relationship Specialty Start Date End Date Amy, Cristobal Chi PCP - General Family Medicine 11/20/11 Clinical Case Manager Relationship Specialty Start Date End Date Amy, [...] Role: Primary Care Physician Address: Address: [facility] [place] [address]- Care Team Related Persons Name: NONE, Care Team Personnel Name: WILL REYES MD Member Role: Primary Care Physician Address: Address: [facility] Care Team Related Persons Name: NONE, [...] BE BASED ON THE PRIMARY CLINICAL RECORDS. [employer] provides no warranty or guarantee of the accuracy or completeness of information in this document.
== END | disposition home or self-care (01) ==
PROVIDERS: PCP Family Medicine Geriatric Medicine; Referring Provider Family Medicine Geriatric Medicine; Visit Provider Family Medicine Geriatric Medicine
DX: G93.40 Encephalopathy, unspecified (principal); G31.84 Mild cognitive impairment of uncertain or unknown etiology
CPT/HCPCS: 70551

== ENCOUNTER → 2023-06-24 | Outpatient (CLI) | payer MEDICARE, SELFPAY ==
--- NOTE | 2023-06-24 13:19 | RAD_ITS ---
PROCEDURE: Fluoroscopic guided Lumbar Puncture. DATE: June 24, 2023. CLINICAL INDICATION: Encephalopathy. PHYSICIAN: Flo Reyes M.D. MEDICATIONS: 1% lidocaine administered subcutaneously for local anesthesia. ACCESS SITE: Lower posterior back. NEEDLE: 22-gauge spinal needle. SPECIMEN: Approximately 10 mL clear]CSF fluid. FLUOROSCOPY TIME (if supplied): (0:37) minutes/seconds. 16.85 mGy COMPLICATIONS: None immediate. The risks, benefits, and alternatives to the procedure were explained to the patient. The specific risks of bleeding, infection, and neurovascular injury were detailed and accepted. Witnessed informed consent was obtained. The patient was placed on the fluoroscopic table in the prone position. The level for needle entry was determined and marked. The overlying skin was cleaned and prepped in the usual sterile fashion. 2% lidocaine was administered subcutaneously for local anesthesia. Under fluoroscopic guidance a 22-gauge spinal needle was advanced. The thecal sac was entered at the L3- L4 vertebral level. The inner stylet was removed. There was spontaneous flow of clear CSF fluid. The patient was placed in a reversed Trendelenburg position. Approximately 10 mL of cerebrospinal fluid was collected using gravity. The specimen was collected and submitted to the laboratory for further evaluation. The needle was withdrawn,. Hemostasis was achieved and a sterile dressing placed. The patient tolerated the procedure well without any immediate complications. The patient was placed supine with head elevated and returned to the floor in stable condition. RAD/Dx Lumbar Puncture w/IMG Guide IMPRESSION: Successful fluoroscopic-guided lumbar puncture. Electronically Signed: Flo Reyes MD at 14:31 EST ,
[2023-06-24 13:35] VITALS: BP 146/96; PULSE 80; RESP 18; TEMP 36.2; O2SAT 97; BMI 27.3
[2023-06-24] MEDS: Lidocaine 2% (5ml sdv) 5 ML VIAL.MPF INFILT (14:00)
[2023-06-24 14:15] VITALS: BP 135/88; PULSE 78; RESP 18; O2SAT 94
[2023-06-24 14:45] VITALS: BP 119/72; PULSE 72; RESP 18; O2SAT 92
== END | disposition home or self-care (01) ==
LOC: RAD 13:15
PROVIDERS: PCP Family Medicine Geriatric Medicine; Referring Provider Family Medicine Geriatric Medicine; Visit Provider Family Medicine Geriatric Medicine
DX: M54.50 Low back pain, unspecified (principal); G31.84 Mild cognitive impairment of uncertain or unknown etiology; G93.40 Encephalopathy, unspecified
CPT/HCPCS: 62328

== ENCOUNTER → 2023-07-15 | Outpatient (CLI) | payer MEDICARE, SELFPAY ==
[2023-07-15 11:44] LABS: Absolute Neutrophil Count 3.6 X10^3/uL (2.0-7.7); Basophil# 0.07 X10^3/uL; Basophil% 1.1 % (0-1); Eosinophil# 0.17 X10^3/uL; Eosinophils% 2.8 % (0-5); Hematocrit 40.7 % (37-47); Hemoglobin 13.8 g/dL (12.0-15.0); Lymphocyte % 29.4 % (19-41); Mean Corp Hgb Conc 33.9 g/dL (32-36); Mean Corpuscular Hgb 32.5 pg (27.0-32.0); Mean Platelet Vol. 9.2 fl (6.2-12.0); Monocyte# 0.47 X10^3/uL; Monocyte% 7.7 % (0-10); NRBC Flagged by Analyzer 0 % (0-5); Neutrophil % 58.7 % (47-70); Platelet Count 429 K/mm3 (150-450); RBC Distribution Width CV 12.3 % (11.6-14.6); RBC Distribution Width SD 43.5 fl (35.1-43.9); Red Blood Count 4.24 M/mm3 (4.2-5.4); White Blood Count 6.1 K/mm3 (4.4-11.0)
[2023-07-15 12:15] LABS: ALB/GLOB Ratio 1.1 RATIO (0.9-2.4); AST(SGOT) 15 U/L (15-37); Alanine Aminotransfer ALT/SGPT 17 U/L (13-56); Alkaline Phosphatase 100 U/L (45-117); Anion Gap 6 (5-15); BUN 13 mg/dL (7-18); BUN/Creat Ratio 11.8 RATIO (10-20); Calcium,Total 9.5 mg/dL (8.5-10.1); Chloride 101 mmol/L (98-107); Cholesterol 244 mg/dL (200); EST Glomerular Filtration Rate 53 mL/min (>60); Est Glom Filt Rate - Afr Amer 64 mL/min (>60); Globulin 3.6 g/dL (2.2-4.2); Glucose 118 mg/dL (74-106); High Density Lipoprotein 48 mg/dL; Potassium 4.1 mmol/L (3.5-5.1); Protein, Total 7.6 g/dL (6.4-8.2); Sodium Level 135 mmol/L (136-145); Thyroid Stim Hormone (TSH) 1.41 uIU/mL (0.358-3.74); Triglycerides 128 mg/dL; Very Low Density Lipoprotein 26 mg/dL (5-40)
--- OUTSIDE RECORDS SUMMARY | 2023-07-15 18:16 | XMS RPT_ITS | CCD ---
Author Name Unknown Address [address] [place] [address] Organization [facility] Care Team Providers Care Gate Services Supervisor Name Role Phone Lisette Rees Unavailable Unavailable Lisette Rees Unavailable Unavailable AMY PATEL, DR SOLIS Primary Care Physician Amy, Cristobal Chi Primary Care Provider DR WILL REYES MD Primary Care Physician Amy, Cristobal Chi Primary Care Provider Amy, Cristobal Chi Primary Care Provider [phone] Amy, Cristobal Chi Primary Care Provider MAY, CRISTOBAL CHI Referring Unavailable SABAS JOHNSON Attending [...] gabapentin; Translations: [gabapentin] Drug Allergy 01-31-2013 Rash [facility] Work Phone: (4 sources) levoFLOXacin; Translations: [levofloxacin] Drug Allergy Tongue swelling [facility] Work Phone: Medications Current Medications Medication Drug Class(es) Dates Sig (Normalized) Sig (Original) acetaminophen 325 mg oral capsule (4 sources) Start: 08-24-2018 acetaminophen 325 mg oral capsule Dose : 650 mg =, Oral, q6h, PRN Pain, scale 1-3, # 20 cap(s), 0 Refill(s), Pharmacy: [facility]/pharmacy #[id number] Start Date: 08/24/18 Status: Ordered 72 hr [...] Start: 07-19-2015 PERCOCET 5-325 MG TABS OXYCODONE-ACETAMINOP [facility] [id number] Nelsy [place] Problems Active Problems Problem Classification [...] current use of drug therapy; Translations: [Other terminal operator (current) drug therapy] Onset: 11-21-2018 11-26-2021 Episodic Other aftercare (1 source) Other terminal operator (current) drug therapy; Translations: [Other terminal operator (current) drug therapy] Onset: 11-26-2021 Episodic Other [...] pressure 68 mm[Hg] Nelsy ADAMS-Trino Work Phone: [facility] 03-23-2022 15:00-0500 Systolic blood pressure 145 mm[Hg] Nelsy ADAMS-C Work Phone: [facility] 03-23-2022 14:59-0500 Body temperature 97.7 [degF] Nelsy ADAMS-C Work Phone: [facility] 03-23-2022 14:59-0500 Heart rate 86 /min Nelsy ADAMS-C Work Phone: [facility] 03-23-2022 14:59-0500 Respiratory rate 18 /min Nelsy ADAMS-C Work Phone: [facility] 03-23-2022 14:59-0500 SaO2% (BldA) [Mass fraction] 93 % Nelsy Chaudhari PA-C Work Phone: [facility] 12-26-2021 11:32-0400 Body temperature 98.78 [degF] CARMEN HAIR FINAL ASSEMBLER BOAT-RN QUALITY [facility] 12-26-2021 11:32-0400 Diastolic blood pressure 77 mm[Hg] CARMEN HAIR FINAL ASSEM[employer]ER BOAT-RN QUALITY [facility] 12-26-2021 11:32-0400 Heart rate 66 /min CARMEN HAIR FIN[employer]SEM[employer]ER [employer]-RN QUALITY [facility] 12-26-2021 11:32-0400 Reason For Taking VItal Signs CARMEN KAPPER FINAL ASSEMBLER BOAT-RN QUALITY [facility] 12-26-2021 11:32-0400 Systolic blood pressure 119 mm[Hg] CARMEN KAPPER FINAL ASSEMBLER BOAT-RN QUALITY [facility] 12-26-2021 07:36-0400 Reason For Taking VItal Signs CARMEN KAPPER FINAL ASSEM[employer]ER BOAT-RN QUALITY [facility] 12-26-2021 07:20-0400 Body temperature 97.7 [degF] CARMEN KAPPER FINAL ASSEMBLER BOAT-RN QUALITY [facility] 12-26-2021 07:20-0400 Diastolic blood pressure 81 mm[Hg] CARMEN KAPPER FINAL ASSEMBLER BOAT-RN QUALITY [facility] 12-26-2021 07:20-0400 Heart rate 60 /min CARMEN KAPPER FINAL ASSEM[employer]ER BOAT-RN QUALITY [facility] 12-26-2021 07:20-0400 Reason For Taking VItal Signs CARMEN KAPPER FINAL ASSEMBLER BOAT-RN QUALITY [facility] 12-26-2021 07:20-0400 Respiratory rate 16 /min CARMEN KAPPER FINAL ASSEM[employer]ER BO[employer]-RN QUALITY [facility] 12-26-2021 07:20-0400 Systolic blood pressure 120 mm[Hg] CARMEN KAPPER FINAL ASSEMBLER BOAT-RN QUALITY [facility] 12-26-2021 06:16-0400 Heart rate 63 /min CARMEN KAPPER FINAL ASSEM[employer]ER BOAT-RN QUALITY [facility] 12-26-2021 04:10-0400 Body temperature 97.52 [degF] CARMEN KAPPER FINAL ASSEMBLER BOAT-RN QUALITY [facility] 12-26-2021 04:10-0400 Diastolic blood pressure 77 mm[Hg] CARMEN KAPPER FINAL ASSEM[employer]ER BOAT-RN QUALITY [facility] 12-26-2021 04:10-0400 Mean blood pressure 101 mm[Hg] CARMEN KAPPER FINAL ASSEMBLER BOAT-RN QUALITY [facility] 12-26-2021 04:10-0400 Respiratory rate 16 /min CARMEN KAPPER FINAL ASSEMBLER BOAT-RN QUALITY [facility] 12-26-2021 04:10-0400 Systolic blood pressure 150 mm[Hg] CARMEN KAPPER FINAL ASSEMBLER BOAT-RN QUALITY [facility] 12-26-2021 00:30-0400 Mean blood pressure 93 mm[Hg] CARMEN KAPPER FINAL ASSEMBLER BOAT-RN QUALITY [facility] 12-26-2021 00:30-0400 Respiratory rate 18 /min CARMEN KAPPER FINAL ASSEM[employer]ER BOAT-RN QUALITY [facility] 12-25-2021 19:04-0400 Mean blood pressure 116 mm[Hg] CARMEN KAPPER FINAL ASSEMBLER BOAT-RN QUALITY [facility] 12-25-2021 16:53-0400 Heart rate 66 /min CARMEN KAPPER FINAL ASSEM[employer]ER BOAT-RN QUALITY [facility] 12-25-2021 14:22-0400 Heart rate 66 /min CARMEN KAPPER FINAL ASSEM[employer]ER BOAT-RN QUALITY [facility] 12-25-2021 14:18-0400 Body height 150 cm CARMEN KAPPER FINAL ASSEM[employer]ER BOAT-RN QUALITY [facility] 12-25-2021 14:18-0400 Body weight 65.4 kg CARMEN KAPPER FINAL ASSEM[employer]ER BOAT-RN QUALITY [facility] 12-25-2021 14:18-0400 Body weight 29.07 kg/m2 CARMEN HAIR FINAL ASSEM[employer]ER BOAT-RN QUALITY [facility] 12-25-2021 13:19-0400 Heart rate 69 /min CARMEN KINGOSMAN FINAL ASSEMBLER BOAT-RN QUALITY [facility] 12-11-2021 19:48-0400 Body height 149.9 cm BALDOMERO DURESKA DO [facility] 12-11-2021 19:48-0400 Body temperature 98.06 [degF] BALDOMERO DURESKA DO [facility] 12-11-2021 19:48-0400 Body weight 63.6 kg BALDOMERO DURESKA DO [facility] 12-11-2021 19:48-0400 Diastolic blood pressure 86 mm[Hg] BALDOMERO DURESKA DO [facility] 12-11-2021 19:48-0400 Heart rate 90 /min BALDOMERO DURESKA DO [facility] 12-11-2021 19:48-0400 Respiratory rate 18 /min BALDOMERO DURESKA DO [facility] 12-11-2021 19:48-0400 Systolic blood pressure 140 mm[Hg] BALDOMERO DURESKA DO [facility] 10-20-2021 14:58-0400 Body temperature 98.42 [degF] KRYSTAL VALLADARES MD [facility] 10-20-2021 14:58-0400 Body weight 63.6 kg KRYSTAL VALLADARES MD [facility] 10-20-2021 14:58-0400 Diastolic blood pressure 80 mm[Hg] KRYSTAL VALLADARES MD [facility] 10-20-2021 14:58-0400 Heart rate 82 /min KRYSTAL VALLADARES MD [facility] 10-20-2021 14:58-0400 Respiratory rate 18 /min KRYSTAL VALLADARES MD [facility] 10-20-2021 14:58-0400 Systolic blood pressure 127 mm[Hg] KRYSTAL VALLADARES MD [facility] 08-01-2021 22:25-0400 Respiratory rate 18 /min TOMMY DISLAT DO [facility] 08-01-2021 21:52-0400 Body height 152.4 cm TOMMY FROMMELT DO [facility] 08-01-2021 21:52-0400 Body temperature 97.34 [degF] TOMMY DISLAT DO [facility] 08-01-2021 21:52-0400 Body weight 68.2 kg TOMMY FROMMELT DO [facility] 08-01-2021 21:52-0400 Diastolic blood pressure 84 mm[Hg] TOMMY FROMMELT DO [facility] 08-01-2021 21:52-0400 Heart rate 81 /min TOMMY DISLAT DO [facility] 08-01-2021 21:52-0400 Respiratory rate 16 /min TOMMY DISLAT DO [facility] 08-01-2021 21:52-0400 Systolic blood pressure 159 mm[Hg] TOMMY DISLAT DO [facility] 01-11-2017 15:29-0400 BMI (Body Mass Index) 26.48 kg/m2 [facility] Work Phone: 01-11-2017 15:29-0400 BP Diastolic 93 mm[Hg] [facility] Work Phone: 01-11-2017 15:29-0400 BP Systolic 133 mm[Hg] [facility] Work Phone: 01-11-2017 15:29-0400 Height 154.31 cm [facility] Work Phone: 01-11-2017 15:29-0400 Pulse (Heart Rate) 65 /min [facility] Work Phone: 01-11-2017 15:29-0400 Respiratory Rate 16 /min [facility] Work Phone: 01-11-2017 15:29-0400 Weight 63.05 kg [facility] Work Phone: 02-03-2011 10:14-0400 Body Temperature 97.8 [degF] [facility] Work Phone: Encounters Encounter Date Encounter Type Care Provider Facility Start: 11-05-2022 Telephone encounter Neftaly Coker MD Work Phone: Pain Management Procedures Date Procedure Procedure Detail Performing Clinician Start: 08-24-2018 Diagnostic endoscopi c examination of ovary TOMMY WOLFF DO Plan of Treatment Date Care Activity Detail Author Start: 01-15-2023 Influenza vaccination INFLUENZA (Season Ended) [facility] Start: 01-15-2022 Influenza vaccination [facility] Start: 07-30-2021 COVID-19 VACCINE (4 - Booster for Moderna series) COVID-19 VACCINE (4 - Booster for Moderna series) [facility] Start: 05-27-2021 COVID-19 VACCINE (4 - Booster for Moderna series) COVID-19 VACCINE (4 - Booster for Moderna series) [facility] Start: 02-14-2018 DIABETES SCREEN DIABETES SCREEN [facility] Start: 01-27-2017 End: 01-27-2017 Appointment Appointment [facility] [employer] Work Phone: Start: 01-11-2017 End: 01-11-2017 Diagnostic colonoscopy Colonoscopy [facility] [employer] Work Phone: Start: 01-11-2017 End: 01-12-2017 Follow Up Appt Other Follow Up Appt Other [facility] [employer] Work Phone: Start: 12-10-2016 HPV TESTING HPV TESTING [facility] Start: 12-10-2016 PAP TESTING PAP TESTING [facility] Start: 04-03-2015 End: 04-03-2015 Mri jnt of lwr extre w/o dye MRI Joint Lower Extremity [facility] [employer] Work Phone: Start: 04-03-2015 End: 04-03-2015 X-ray exam, knee, 4 or more X-Ray, Knee [facility] [employer] Work Phone: Start: 03-06-2014 LIPID SCREEN LIPID SCREEN [facility] Start: 02-21-2014 Mammography MAMMOGRAM [facility] Start: 01-15-2011 Colonoscopy COLONOSCOPY [facility] Start: 01-15-2011 COLORECTAL CANCER SCREENING COLORECTAL CANCER SCREENING [facility] Start: 2009 Influenza vaccination LUNG CANCER SCREENING [facility] Start: 2009 SHINGRIX VACCINE (1 of 2) SHINGRIX VACCINE (1 of 2) [facility] Start: 2004 COLOGUARD (FIT-DNA) COLOGUARD (FIT-DNA) [facility] Start: [address] COLONOGRAPHY [facility] Start: 2004 FECAL OCCULT BLOOD FECAL OCCULT BLOOD [facility] Start: 2004 SIGMOIDOSCOPY SIGMOIDOSCOPY [facility] Start: 02-15-2002 Urine microalbumin profile DTAP,TDAP,TD (1 - Tdap) [facility] Start: 1977 ANNUAL PCP TEAM CHRONIC DISEASE VISIT ANNUAL PCP TEAM CHRONIC DISEASE VISIT [facility] Start: 1977 HEPATITIS C SCREENING HEPATITIS C SCREENING [facility] Start: 1977 HIV SCREENING HIV SCREENING [facility] Start: 1977 SPIROMETRY SPIROMETRY [facility] Start: 1965 PNEUMOCOCCAL (1 - PCV) PNEUMOCOCCAL (1 - PCV) [facility] Start: 1964 COVID-19 VACCINE (#1) COVID-19 VACCINE (#1) [facility] Start: 1964 COVID-19 VACCINE (1) COVID-19 VACCINE (1) [facility] Start: 1959 COVID-19 VACCINE (#1) COVID-19 VACCINE (#1) [facility] Immunizations Immunization Date Immunization Notes Care Provider Fa cili 04-01-2021 influenza virus vacc ine, unspecified formulation [employer]MEN [employer]IR FINAL ASSEM[employer]ER BOAT-RN QUALITY [facility] 04-01-2021 pneumococcal polysaccharide vaccine, 23 valent CARMEN HAIR FINAL ASSEMBLER BOAT-RN QUALITY [facility] 04-01-2021 SARS-CoV-2 (COVID-19 ) mRNA-1273 vaccine [employer]MEN HA[employer] FINAL ASSEMBLER BOAT-RN QUALITY [facility] 11-15-2020 SARS-CoV-2 (COVID-19 ) mRNA-1273 vaccine CARMEN HAIR FINAL ASSEMBLER BOAT-RN QUALITY [facility] 10-08-2020 SARS-CoV-2 (COVID-19 ) mRNA-1273 vaccine CARMEN KINGOSMAN FINAL ASSEMBLER BOAT-RN QUALITY [facility] 05-29-2020 influenza virus vacc ine, unspecified formulation CARMEN KINGOSMAN FINAL ASSEMBLER BOAT-RN QUALITY [facility] 05-29-2020 pneumococcal polysaccharide vaccine, 23 valent CARMENBlaine HAIR FINAL ASSEMBLER BOAT-RN QUALITY [facility] 02-16-2018 influenza virus vacc ine, unspecified formulation CARMEN KINGOSMAN FINAL ASSEMBLER BOAT-RN QUALITY [facility] 06-10-2017 influenza virus vacc ine, unspecified formulation CARMEN OLIVER FINAL ASSEMBLER BOAT-RN QUALITY [facility] 02-14-2009 influenza virus vacc ine, unspecified formulation Nelsy Chaudhari PA-C Work Phone: [facility] Work Phone: 04-06-2007 influenza virus vacc ine, unspecified formulation Nelsy Chaudhari PA-C Work Phone: [facility] Work Phone: 02-14-2002 tetanus and diphther ia toxoids, adsorbed, preservative free, for adult use (2 Lf of tetanus toxoid and 2 Lf of diphtheria toxoid) Nelsy Chaudhari PA-C Work Phone: [facility] Work Phone: 02-14-2002 tetanus and diphther ia toxoids, adsorbed, preservative free, for adult use (5 Lf of tetanus toxoid and 2 Lf of diphtheria toxoid) TOMMY WOLFF DO [facility] Payers Date Payer Category Payer Medicaid [id number] 2021 Medicaid MEDICAID [id number] MEDICAID [id number] 2021-Present [phone] [address] [place] [address] Medicaid [id number] 2021 Medicaid [id number] 2020 Medicare HUMANA MEDICARE HUMANA GOLD PLUS [id number] 2020-Present [phone] [address] [address] [place] [address] HMO [id number] 2020 Medicare HUMANA MEDICARE HUMANA GOLD PLUS [id number] 2020-Present [phone] [address] [address] [place] [address] HMO [id number] 2020 Private Health Insurance [id number] 2000 Medicare MEDICARE MEDICAR E A AND B [id number] 2000-Present [phone] [address] [address] [place] [address] Medicare [id number] Social History Date Type Detail Facility Start: 03-29-2019 Light tobacco smoker (finding) [facility] Sex Assigned At Female [facility] Start: 12-29-2021 End: 07-23-2022 Tobacco smoking status NHIS Smokes tobacco daily [facility] History of tobacco use Cigarette Smoker [facility] Start: 02-20-2015 End: 09-11-2022 Alcohol intake Current non-drinker of alcohol (finding) [facility] Start: 1960 Sex Assigned At Not on file [facility] Start: 10-04-2021 End: 03-23-2022 Exposure to SARS-CoV-2 (event) Not sure [facility] Start: 12-25-2021 Tobacco smoking status Heavy t obacco smoker (finding) [facility] Start: 12-29-2021 End: 07-23-2022 Cigarettes smoked current (pack per day) - Reported 1 [facility] Start: 12-29-2021 End: 07-23-2022 Tobacco use and exposure Smokeless tobacco non-user [facility] Functional Status Date Assessment Result Facility 12-26-2021 Functional Status bilateral knee high [facility] 12-26-2021 Functional Status Independent [facility] 12-26-2021 Functional Status Apartment [facility] 12-26-2021 Functional Status [facility] 12-26-2021 Functional Status [facility] 12-26-2021 Functional Status Demonstrates C orrect Call Light Use Yes [facility] 12-25-2021 Functional Status Moderate assistance [facility] 12-25-2021 Functional Status Dinner Percent 20 [facility] 12-25-2021 Functional Status Independent [facility] 12-25-2021 Functional Status Sensory Deficits None [facility] 12-25-2021 Functional Status Environmental Safety Implemented Adequate room lighting, Bed in low position, Call device within reach [facility] 12-25-2021 Functional Status [facility] 12-11-2021 Functional Status Ambulating in guerrero, Ambulating in room, Awake [facility] 12-11-2021 Functional Status Standard Safet y ID band on, Allergy Band on, Call device within reach, Bed in low position, Wheels locked, Upper/Half-Length side-rails up, personal items within reach, Visitor at bedside [facility] 10-20-2021 Functional Status Standard Safet y ID band on, Allergy Band on, Call device within reach, Bed in low position, Wheels locked, Upper/Half-Length side-rails up, Bedside Cart Locked, Safety level maintained [facility] Mental Status Date Assessment Result Facility 12-26-2021 Mental Status Oriented x 4 [facility] 12-26-2021 [facility] 12-26-2021 Mental Status [facility] 12-26-2021 Mental Status [facility] 12-11-2021 Mental Status Orientation Oriented x 4 [facility] 12-11-2021 Mental Status [facility] 10-20-2021 Mental Status Orientation Oriented x 4 [facility] Clinical Notes 05-19-2007 to 11-05-2022 Telephone Encounter [...] Liliana Shah RN documented in this encounter [facility] 10-20-2022 Miscellaneous Notes The following [...] Liliana Shah RN documented in this encounter [facility] 10-19-2022 Miscellaneous Notes The following [...] Liliana Shah RN documented in this encounter [facility] 09-11-2022 Note HNO ID: [id number] Author: Nelsy Chaudhari PA-C Service: ? Author Type: Physician Unionm[employer] Operator Type: Progress Notes Filed: 09/11/2022 2:24 PM Note Text: This note was created using [employer]. Subjective Navin August is a 62 year [...] in office in (more content not included)... [facility] 08-12-2022 Miscellaneous Notes The following approved medication requests have been transmitted electronically. Requested Prescriptions Pending Prescriptions Disp Refills fentaNYL 37.5 mcg/hour pt72 15 Patch 0 Sig: Apply 1 Patch as directed every 48 hours for 30 days. Do not start before August 18, 2022. Nelsy Chaudhari PA-C documented in this encounter [facility] 07-27-2022 Miscellaneous Notes Arrived for UDS Completed In addition, brought fentanyl 50 mcg patches for count ( see AG SPINE PAIN COUNT) Count appropriate Liliana Shah RN July 27, 2022 2:00 PM documented in this encounter [facility] 07-23-2022 Note HNO ID: [id number] Author: Nelsy Chaudhari PA-C Service: ? Author Type: Physician Unionmelt Operator Type: Progress Notes Filed: 07/23/2022 2:48 PM Note Text: I have communicated my name and active licensure. The patient's identity and physical location were verified at the time of this visit. Either the patient or their legal product representative has been informed of the risks and benefits of -- and alternatives to -- treatment through a remote evaluation and consents to proceed with the evaluation remotely. This note was created using [email or web address]. Subjective Navin August is a 62 year [...] a new order (more content not included)... [facility] 07-23-2022 Instructions Nelsy Chaudhari PA-C - [...] at this time. documented in this encounter [facility] 07-23-2022 History of Presen t illness Narrative I have communicated my name and active licensure. The patient's identity and physical location were verified at the time of this visit. Either the patient or their legal product representative has been informed of the risks and benefits of -- and alternatives to -- treatment through a remote evaluation and consents to proceed with the evaluation remotely. This note was created using [email or web address]. Subjective Navin August is a 62 year [...] Nelsy Chaudhari PA-C documented in this encounter [facility] 07-15-2022 Miscellaneous Notes The following [...] Liliana Shah RN documented in this encounter [facility] 06-11-2022 Note HNO ID: [id number] Author: Nelsy Chaudhari PA-C Service: ? Author Type: Physician Unionmelt Operator Type: Progress Notes Filed: 06/11/2022 2:22 PM Note Text: This note was created using [employer] Management[employer]. Subjective Navin August is a 62 year [...] 338.29, ICD10: M25.569, G89.29 Nelsy Chaudhari PA-C [facility] 06-11-2022 Instructions Nelsy Chaudhari PA-C - [...] at this time. documented in this encounter [facility] 06-11-2022 History of Presen t illness Narrative This note was created using [email or web address]. Subjective Navin August is a 62 year [...] Nelsy Chaudhari PA-C documented in this encounter [facility] 05-14-2022 Miscellaneous Notes The following [...] Liliana Shah RN documented in this encounter [facility] 05-04-2022 Note HNO ID: [id number] Author: Nelsy Chaudhari PA-C Service: ? Author Type: Physician Unionmelt Operator Type: Progress Notes Filed: 05/04/2022 3:11 PM Note Text: This note was created using [employer]. Subjective Navin August is a 62 year [...] G89.29 Nelsy Rutherford (more content not included)... [facility] 05-04-2022 Instructions Nelsy Chaudhari PA-C - [...] at this time. documented in this encounter [facility] 05-04-2022 History of Presen t illness Narrative This note was created using [employer]. Subjective Navin August is a 62 year [...] - ICD9: 719.46, 338.29, ICD10: M25.569, G89.29 Nelys Chaudhari PA-C documented in this encounter [facility] 04-20-2022 Miscellaneous Notes The following [...] Liliana Shah RN documented in this encounter [facility] 04-15-2022 Miscellaneous Notes The following [...] Liliana Shah RN documented in this encounter [facility] 03-23-2022 Note HNO ID: [id number] Author: Nelsy Chaudhari PA-C Service: ? Author Type: Physician Unionmelt Operator Type: Progress Notes Filed: 03/23/2022 3:10 PM Note Text: This note was created using [employer]. Subjective Navin August is a 62 year [...] 720.2, ICD10: M46.1 (more content not included)... [facility] 03-23-2022 Instructions Nelsy Chaudhari PA-C - [...] at this time. documented in this encounter [facility] 03-23-2022 History of Presen t illness Narrative This note was created using [email or web address]. Subjective Navin August is a 62 year [...] Nelsy Chaudhari PA-C documented in this encounter [facility] 2022 Miscellaneous Notes The following approved medication requests have been transmitted electronically. Requested Prescriptions Pending Prescriptions Disp Refills fentaNYL (DURAGESIC) 50 mcg/hr 15 Patch 0 Sig: APPLY 1 PATCH TO SKIN EVERY OTHER DAY DIRECTED Nelsy Chaudhari PA-C Not available at [facility] in [place] Liliana Shah RN 2022 2:56 PM Requested Prescriptions Pending Prescriptions Disp Refills fentaNYL (DURAGESIC) 50 mcg/hr 15 Patch 0 Sig: APPLY 1 PATCH TO SKIN EVERY OTHER DAY DIRECTED Please review and advise. Liliana Shah RN documented in this encounter [facility] 02-09-2022 Note HNO ID: [id number] Author: Nelsy Chaudhari PA-C Service: ? Author Type: Physician Unionmelt Operator Type: Progress Notes Filed: 02/09/2022 3:27 PM Note Text: This note was created using [employer]. Subjective Navin August is a 61 year [...] (HCC) - IC (more content not included)... [facility] 01-06-2022 Miscellaneous Notes The following approved [...] Liliana Shah RN [facility] [facility] Miscellaneous Notes The following [...] Liliana Shah RN documented in this encounter [facility] 12-29-2021 Note HNO ID: [id number] Author: Neftaly Coker MD Service: ? Author Type: Physician Type: Progress Notes Filed: 12/30/2021 3:33 PM Note Text: This note was created using [employer]. Subjective Navin August is a 61 year [...] may contain minor errors. Neftaly Coker MD [facility] 12-26-2021 Nurse Progress note Patient informed [...] Stephanie Hidalgo RN on 12/26/2021 03:25 PM [facility] 12-26-2021 Note Discharge Instructions Thank you for allowing [facility] to assist you with your healthcare needs. The following is important discharge information regarding your hospital visit. Your Care Team Carmen Hair [employer] Your Diagnosis Hypo-osmolality and hyponatremia Bipolar disease, chronic Asthma Bronchitis, chronic Hypothyroid Fibromyalgia Anxiety Medical screening exam What to do next Follow Up Appointments Follow Up with WILL REYES MD When Within 5 to 7 days Why: Message left for PCP office. Recheck BMP in 1 week. Where: [facility] [address] [place], [place] [address]E [address] [place] [address]- The Following Activity and Diet Have Been [...] Duration: 4 Days Pickup at [id number] Unchanged acetaminophen (acetaminophen 325 mg oral capsule) [...] for muscle spasm 11 AM [id number]: [address], [place] [id number] [phone] Please take this list to your next [...] Document Reviewed: 01/13/2012 ExitCare Patient Information [address] [facility] [facility]. This information is not intended to replace advice given to you by your health care provider. Make sure you discuss any questions you have with your health care provider. Additional Information VACCINATE! IT SAVES LIVES! Members of the community who have not yet received the COVID-19 vaccine and would like to receive it can visit one of [facility] vaccine clinics. There are many vaccine clinic locations within the [facility]. For locations and available times, please visit [email or web address] It is important to note that some COVID mobile vaccine clinics are held outdoors and may be canceled in rainy or stormy conditions. To learn more about pediatric vaccinations (ages 5-11), we invite you to visit the [facility] webpage. [email or web address]://[email or web address] ages/[email or web address]-Wlanb-Ruyyumdtily-Freq cnhjdp-[email or web address]-Hrmojkcaq.html To learn more about the COVID-19 vaccine, we invite you to visit the [facility] website for a list of frequently asked questions. [email or web address] [email or web address].pdf [facility] Patient Portal Access Instructions: Stay connected with your healthcare team and access your personal medical information anytime with the [facility] Patient Portal.If you would like a full copy of your medical records, please contact the [facility] Medical Records Department, Wednesday through Wednesday between 8a.m. and 4:30p.m. Please follow the directions below to access the portal: 1.Access the email account you provided upon registration to the [facility].2.Look for an invitation email from [facility].3.Open the email and access the invitation link: Accept Invitation to [email or web address].Fill in the required renner to create your account. Sign into [email or web address] with your username and password that you [...] you will allow to register on the [email or web address] Patient Portal for access to your information. You can also access the [email or web address] Patient Portal on the ANDalyze. Simply click on Health Records under Health Data and then click on the Sencha logo. HOW TO SAFELY DISPOSE OF PRESCRIPTION [...] Call your local pharmacy or go to [email or web address] [email or web address]/[email or web address] to find one close to you.3.Make use of household items: Use cat litter or old coffee grounds to dispose medications if other options are not available. Mix your drugs with these household products, seal them in an airtight container and throw it into the garbage. Call [facility]: [phone] to be sure your drugs can be [...] CHART COPY. Signatures Patient Education Materials Hyponatremia, Tueh-qw-Hbhh Medication Leaflets My discharge plan and instructions have been reviewed and explained to me and I,NAVIN AUGUST understand my current condition and have read and understand these discharge instructions. I have received a written copy of the plan/instructions. If I have questions, I am aware that I should contact my doctor. Patient/School Library Media Specialist Signature: Date/Time: Relationship to Patient: Witness Name/Signature: Date/Time: [facility] 12-26-2021 Hospital Discharg e instructions Patient Education 12/26/2021 12:37:18 Hyponatremia, Qssq-jq-Vzkl Hyponatremia Hyponatremia is when the salt (sodium) [...] Document Reviewed: 01/13/2012 ExitCare Patient Information 2015 [employer]. This information is not intended to replace advice given to you by your health care provider. Make sure you discuss any questions you have with your health care provider. Follow Up Care 12/25/2021 09:58:36 With:WILL REYES MD Address: [facility] [address] [place] [address] [address] [place] [address]- When:5 to 7 days Comments:Message left for PCP office. Recheck BMP in 1 week. [facility] 12-26-2021 Nurse Progress note Patient requesting COVID test. Spoke to FIN[employer]SEM[employer]ER [employer] and test was ordered. When patient was told how long the test would take she refused. Patient stated, I'm not waiting that long, I refuse. Digitally Signed by Katheryn Delgado LPN on 12/26/2021 01:36 PM [facility] 12-25-2021 Note Date of Service 12/25/2021 Chief Complaint States that she is concerned that she has ammonia toxicity . History of Present Illness Patient is a 61-year-old female, who follows with Dr. Reyes with a past medical history significant for bipolar disorder, asthma, fibromyalgia, and hypothyroidism, presents to [facility] emergency department with the chief complaint of [...] by CARMEN HAIR on 12/25/2021 04:34 PM [facility] 1. Hypo-osmolality and hypon atremia Acute on [...] Tests Pending * COVID-19 Only (AO) 12/26/21 [facility] 08-11-2022 Note ORIGINAL EXAMINATION: CT OF THE [...] 12/25/2021 12:16:50 PM Ordering Provider: KRYSTAL VALLADARES [facility]08-11-2022 Note ORIGINAL EXAMINATION: ONE XRAY VIEW OF [...] Sign Date: 12/25/2021 12:13:51 PM Ordering Provider: [address]11-2022 Note ORIGINAL EXAMINATION: ONE XRAY [...] Sign Date: 12/25/2021 12:13:51 PM Ordering Provider: [address]11-2022 Note ORIGINAL EXAMINATION: CT OF THE [...] Date: 12/25/2021 12:16:50 PM [facility] Discharge [facility] Patient Education 12/11/2021 20:39:48 [...] body part Frequent bruising for unknown reasons 1167-9300 [employer] [address] [place] [address]. All rights reserved. This information is not intended as a substitute for professional medical care. Always follow yourhealthcare professional's instructions. Follow Up Care 12/11/2021 19:44:25 With:WILL REYES MD Address: [facility] [address] [place] [address]- When:2-4 days [facility] 07-28-2022 Note Discharge Instructions Thank you for allowing [facility] to assist you with your healthcare needs. [...] Where: [facility] [address] [place] [address]- Allergies Levaquin (Tongue swelling) Neurontin (Rash) Medications [...] body part Frequent bruising for unknown reasons 2225-3447 [employer] [address] [place] [address], [place] [address]. All rights reserved. This information is not intended as a substitute for professional medical care. Always follow yourhealthcare professional's instructions. Additional Information VACCINATE! IT SAVES LIVES! Members of the community who have not yet received the COVID-19 vaccine and would like to receive it can visit one of [facility] vaccine clinics. There are many vaccine clinic locations within the [facility]. For locations and available times, please visit [email or web address]. It is important to note that some COVID mobile vaccine clinics are held outdoors and may be canceled in rainy orstormy conditions. To learn more about pediatric vaccinations (ages 5-11), we invite you to visit the [facility] webpage. [email or web address]://[email or web address]/pages/[email or web address]-Ihygp-Epkeloimqfy-Afjrfemnih-Wcsmb-Mgs stions.htmlTo learn more about the COVID-19 vaccine, we invite you to visit the [facility] website for a list of frequently asked questions. [email or web address] _[email or web address].pdf [facility] Patient Portal Access Instructions: Stay connected with your healthcare team and access your personal medical information anytime with the [email or web address] Patient Portal. If you would like a full copy of your medical records please contact the [facility] Medical Records Department Wednesday through Wednesday between 8a.m. and 4:30p.m. Please follow the directions below to access the portal: 1.Access the email account you provided upon registration to the hospital.2.Look for an invitation email from [facility].3.Open the email and access the invitation link: Accept Invitation to [email or web address].Fill in the required renner to create your account. Sign into [email or web address] with your username and password that you [...] you will allow to register on the [facility] Patient Portal for access to your information. You can also access the [facility] Patient Portal on the ANDalyze. Simply click on Health Records under [employer] and then click on the Sencha logo. HOW TO SAFELY DISPOSE OF PRESCRIPTION [...] Call your local pharmacy or go to [email or web address] [email or web address]/[email or web address] to find one close to you.3.Make use of household items: Use cat litter or old coffee grounds to dispose medications if other options arenot available. Mix your drugs with these household products, seal them in an airtight container andthrow it into the garbage. Call [facility]: [phone] to be sure your drugs can be [...] aware that I should contact my doctor. Patient/School Library Media Specialist Signature: Date/Time: Relationship to Patient: Witness Name/Signature: Date/Time: [facility]-28-2022 Note ORIGINAL EXAMINATION: TWO XRAY VIEWS OF [...] 12/11/2021 8:34:16 PM Ordering Provider: BALDOMERO HEAD [facility]07-28-2022 Note ORIGINAL EXAMINATION: TWO XRAY VIEWS OF [...] Sign Date: 12/11/2021 8:34:16 PM Ordering Provider: [facility]07-15-2022 Miscellaneous Notes* Telephone Encounter - Liliana [...] advise. Liliana Shah RN [facility] Miscellaneous Notes* Telephone Encounter - [...] advise. Liliana Shah RN [facility] Hospital Discharge instructions Patient Education [...] foods again, start with small amounts of lugy-qo-tzunyj, low- fat foods. These include apple sauce, [...] increase stomach acid. Don't use aspirin or ftnc-ynp-lnhtppm pain and fever medicines, if possible. This includes nonsteroidal anti-inflammatory drugs (NSAIDs). Lose excess weight. Finish eating at least 2 hours before you go to bed or lie down. Raise the head of your bed. 3093-3338 [employer] [address] [place] [address]. All rights reserved. This information is not intended as a substitute for professional medical care. Always follow yourhealthcare professional's instructions. Follow Up Care 10/20/2021 14:48:46 With:WILL REYES MD Address: [facility]/[address] [place] [address]- When:2-4 days [facility] 06-06-2022 Evaluation + Plan note Diagnostic Tests Pending * Urinalysis 10/20/21 [facility] 2022 Hospital Discharge instructions Patient Education 08/01/2021 [...] teeth? Are you happy with your smile? 4845-7617 [employer]. [address] [place] [address]. All rights reserved. This information is not intended as a substitute for professional medical care. Always follow yourhealthcare professional's instructions. Follow Up Care 08/01/2021 21:40:00 With:WILL REYES MD Address: [facility] [address] [place] [address] [address] [place] [address]- When:2-4 days [facility] 09-16-2015 History of Past illness Narrative* Problem Noted Date Resolved Date Chronic back pain 01/30/2015 12/29/2021 Pain in joint, lower leg 01/01/2008 022 Abnormal weight gain 05/19/2007 01/15/2010 Lumbago 12/29/2021 documented as of this encounter (statuses as of 12/30/2021) [facility] History of Past illness Narrative* Problem Noted Date Resolved Date Chronic back pain 01/30/2015 12/29/2021 Pain in joint, lower leg 01/01/2008 022 Abnormal weight gain 05/19/2007 01/15/2010 Lumbago 12/29/2021 documented as of this encounter (statuses as of 01/06/2022) [address]16-2015 History of Past illness Narrative* Problem Noted Date Resolved Date Chronic back pain 01/30/2015 12/29/2021 Pain in joint, lower leg 01/01/2008 022 Abnormal weight gain 05/19/2007 01/15/2010 Lumbago 12/29/2021 documented as of this encounter (statuses as of 2022) [facility] History of Past illness Narrative* Problem Noted Date Resolved Date Chronic back pain 01/30/2015 12/29/2021 Pain in joint, lower leg 01/01/2008 022 Abnormal weight gain 05/19/2007 01/15/2010 Lumbago 12/29/2021 documented as of this encounter (statuses as of 03/23/2022) [facility] History of Past illness Narrative* Problem Noted Date Resolved Date Chronic back pain 01/30/2015 12/29/2021 Pain in joint, lower leg 01/01/2008 022 Abnormal weight gain 05/19/2007 01/15/2010 Lumbago 12/29/2021 documented as of this encounter (statuses as of 04/15/2022) [facility] History of Past illness Narrative* Problem Noted Date Resolved Date Chronic back pain 01/30/2015 12/29/2021 Pain in joint, lower leg 01/01/2008 022 Abnormal weight gain 05/19/2007 01/15/2010 Lumbago 12/29/2021 documented as of this encounter (statuses as of 04/20/2022) [address]16-2015 History of Past illness Narrative* Problem Noted Date Resolved Date Chronic back pain 01/30/2015 12/29/2021 Pain in joint, lower leg 01/01/2008 022 Abnormal weight gain 05/19/2007 01/15/2010 Lumbago 12/29/2021 documented as of this encounter (statuses as of 05/04/2022) [address]16-2015 History of Past illness Narrative* Problem Noted Date Resolved Date Chronic back pain 01/30/2015 12/29/2021 Pain in joint, lower leg 01/01/2008 022 Abnormal weight gain 05/19/2007 01/15/2010 Lumbago 12/29/2021 documented as of this encounter (statuses as of 05/20/2022) [facility] of [facility] illness Narrative* Problem Noted Date Resolved Date Chronic back pain 01/30/2015 12/29/2021 Pain in joint, lower leg 01/01/2008 022 Abnormal weight gain 05/19/2007 01/15/2010 Lumbago 12/29/2021 documented as of this encounter (statuses as of 06/11/2022) [facility] History of Past illness Narrative* Problem Noted Date Resolved Date Chronic back pain 01/30/2015 12/29/2021 Pain in joint, lower leg 01/01/2008 022 Abnormal weight gain 05/19/2007 01/15/2010 Lumbago 12/29/2021 documented as of this encounter (statuses as of 07/15/2022) [facility] of Past illness Narrative* Problem Noted Date Resolved Date Chronic back pain 01/30/2015 12/29/2021 Pain in joint, lower leg 01/01/2008 022 Abnormal weight gain 05/19/2007 01/15/2010 Lumbago 12/29/2021 documented as of this encounter (statuses as of 07/23/2022) [facility] of Past illness Narrative* Problem Noted Date Resolved Date Chronic back pain 01/30/2015 12/29/2021 Pain in joint, lower leg 01/01/2008 022 Abnormal weight gain 05/19/2007 01/15/2010 Lumbago 12/29/2021 documented as of this encounter (statuses as of 07/28/2022) [facility] History of Past illness Narrative* Problem Noted Date Resolved Date Chronic back pain 01/30/2015 12/29/2021 Pain in joint, lower leg 01/01/2008 022 Abnormal weight gain 05/19/2007 01/15/2010 Lumbago 12/29/2021 documented as of this encounter (statuses as of 08/12/2022) [facility] of Past illness Narrative* Problem Noted Date Resolved Date Chronic back pain 01/30/2015 12/29/2021 Pain in joint, lower leg 01/01/2008 022 Abnormal weight gain 05/19/2007 01/15/2010 Lumbago 12/29/2021 documented as of this encounter (statuses as of 10/19/2022) [facility] of Past illness Narrative* Problem Noted Date Resolved Date Chronic back pain 01/30/2015 12/29/2021 Pain in joint, lower leg 01/01/2008 022 Abnormal weight gain 05/19/2007 01/15/2010 Lumbago 12/29/2021 documented as of this encounter (statuses as of 10/21/2022) [facility] of [facility] illness Narrative* Problem Noted Date Resolved Date Chronic back pain 01/30/2015 12/29/2021 Pain in joint, lower leg 01/01/2008 022 Abnormal weight gain 05/19/2007 01/15/2010 Lumbago 12/29/2021 documented as of this encounter (statuses as of 11/05/2022) [facility] of [facility] illness Narrative* Problem Noted Date Resolved Date Abnormal weight gain 05/19/2007 01/15/2010 documented as of this encounter (statuses as of 09/02/2021) [facility] of Past illness Narrative* Problem Noted Date Resolved Date Abnormal weight gain 05/19/2007 01/15/2010 documented as of this encounter (statuses as of 10/15/2021) [facility] of [facility] illness Narrative* Problem Noted Date Resolved Date Abnormal weight gain 05/19/2007 01/15/2010 documented as of this encounter (statuses as of 11/28/2021) [facility] of Past illness Narrative* Problem Noted Date Resolved Date Abnormal weight gain 05/19/2007 01/15/2010 documented as of this encounter (statuses as of 11/28/2021) [facility] No data [...] note No data available for this section [facility] Summary Purpose Family History No Family History Records FoundNo Family History Records FoundNo Family History Records FoundNo Family History Records Found Advance Directives No Advanced Directives Records FoundNo Advanced Directives Records FoundNo Advanced Directives Records FoundNo Advanced Directives Records Found Additional Source Comments INFORMATION SOURCE (unrecogn ized section and content) DATE CREATED AUTHOR AUTHOR'S ORGANIZ ATION 12/29/2021 [facility] ([place]) DATE CREATED AUTHOR AUTHOR'S ORGANIZ ATION 10/25/2022 [facility] DATE CREATED AUTHOR AUTHOR'S ORGANIZ ATION 11/06/2022 [facility] Source Comments (unrecognize d section and content) In the event this informatio n is protected by the Federal Confidentiality of Alcohol and Drug Abuse Patient Records regulations: The Federal rules restrict any use of the information to criminally investigate or prosecute any alcohol or drug abuse patient.[facility] Center[facility] the event this information is protected by the Federal Confidentiality of Alcohol and Drug Abuse Patient Records regulations: The Federal rules restrict any use of the information to criminally investigate or prosecute any alcohol or drug abuse patient.[facility] CenterIn the event this information is protected by the Federal Confidentiality of Alcohol and Drug Abuse Patient Records regulations: The Federal rules restrict any use of the information to criminally investigate or prosecute any alcohol or drug abuse patient.[facility] CenterIn the event this information is protected by the Federal Confidentiality of Alcohol and Drug Abuse Patient Records regulations: The Federal rules restrict any use of the information to criminally investigate or prosecute any alcohol or drug abuse patient.[facility] CenterIn the event this information is protected by the Federal Confidentiality of Alcohol and Drug Abuse Patient Records regulations: The Federal rules restrict any use of the information to criminally investigate or prosecute any alcohol or drug abuse patient.[facility] CenterIn the event this information is protected by the Federal Confidentiality of Alcohol and Drug Abuse Patient Records regulations: The Federal rules restrict any use of the information to criminally investigate or prosecute any alcohol or drug abuse patient.[facility] CenterIn the event this information is protected by the Federal Confidentiality of Alcohol and Drug Abuse Patient Records regulations: The Federal rules restrict any use of the information to criminally investigate or prosecute any alcohol or drug abuse patient.[facility] CenterIn the event this information is protected by the Federal Confidentiality of Alcohol and Drug Abuse Patient Records regulations: The Federal rules restrict any use of the information to criminally investigate or prosecute any alcohol or drug abuse patient.[facility] CenterIn the event this information is protected by the Federal Confidentiality of Alcohol and Drug Abuse Patient Records regulations: The Federal rules restrict any use of the information to criminally investigate or prosecute any alcohol or drug abuse patient.[facility] CenterIn the event this information is protected by the Federal Confidentiality of Alcohol and Drug Abuse Patient Records regulations: The Federal rules restrict any use of the information to criminally investigate or prosecute any alcohol or drug abuse patient.[facility] CenterIn the event this information is protected by the Federal Confidentiality of Alcohol and Drug Abuse Patient Records regulations: The Federal rules restrict any use of the information to criminally investigate or prosecute any alcohol or drug abuse patient.[facility] CenterIn the event this information is protected by the Federal Confidentiality of Alcohol and Drug Abuse Patient Records regulations: The Federal rules restrict any use of the information to criminally investigate or prosecute any alcohol or drug abuse patient.[facility] CenterIn the event this information is protected by the Federal Confidentiality of Alcohol and Drug Abuse Patient Records regulations: The Federal rules restrict any use of the information to criminally investigate or prosecute any alcohol or drug abuse patient.[facility] CenterIn the event this information is [...] or prosecute any alcohol or drug abuse patient.[facility] CenterIn the event this information is protected by the Federal Confidentiality of Alcohol and Drug Abuse Patient Records regulations: The Federal rules restrict any use of the information to criminally investigate or prosecute any alcohol or drug abuse patient.[facility] CenterIn the event this information is protected by the Federal Confidentiality of Alcohol and Drug Abuse Patient Records regulations: The Federal rules restrict any use of the information to criminally investigate or prosecute any alcohol or drug abuse patient.[facility] CenterIn the event this information is protected by the Federal Confidentiality of Alcohol and Drug Abuse Patient Records regulations: The Federal rules restrict any use of the information to criminally investigate or prosecute any alcohol or drug abuse patient.[facility] CenterIn the event this information is protected by the Federal Confidentiality of Alcohol and Drug Abuse Patient Records regulations: The Federal rules restrict any use of the information to criminally investigate or prosecute any alcohol or drug abuse patient.[facility] CenterIn the event this information is protected by the Federal Confidentiality of Alcohol and Drug Abuse Patient Records regulations: The Federal rules restrict any use of the information to criminally investigate or prosecute any alcohol or drug abuse patient.[facility] Care Teams (unrecognized sec tion and content) Gate Services Supervisor Relationship Specialty Start Date End Date Amy Cristobal Chi PCP - General Family Practice 11/20/11 Gate Services Supervisor Relationship Specialty Start Date End Date Amy, Cristobal Chi PCP - General Family Practice 11/20/11 Gate Services Supervisor Relationship Specialty Start Date End Date Amy, Cristobal Chi PCP - General Family Practice 11/20/11 Gate Services Supervisor Relationship Specialty Start Date End Date Amy, Cristobal Chi PCP - General Family Practice 11/20/11 Gate Services Supervisor Relationship Specialty Start Date End Date Amy, Cristobal Chi PCP - General Family Medicine 11/20/11 Gate Services Supervisor Relationship Specialty Start Date End Date Amy, Cristobal Chi PCP - General Family Medicine 11/20/11 Gate Services Supervisor Relationship Specialty Start Date End Date Amy, Cristobal Chi PCP - General Family Medicine 11/20/11 Gate Services Supervisor Relationship Specialty Start Date End Date Amy, Cristobal Chi PCP - General Family Medicine 11/20/11 Gate Services Supervisor Relationship Specialty Start Date End Date Amy, Cristobal Chi PCP - General Family Medicine 11/20/11 Gate Services Supervisor Relationship Specialty Start Date End Date Amy, Cristobal Chi PCP - General Family Medicine 11/20/11 Gate Services Supervisor Relationship Specialty Start Date End Date Amy, Cristobal Chi PCP - General Family Medicine 11/20/11 Gate Services Supervisor Relationship Specialty Start Date End Date Amy, Cristobal Chi PCP - General Family Medicine 11/20/11 Gate Services Supervisor Relationship Specialty Start Date End Date Amy, Cristobal Chi PCP - General Family Medicine 11/20/11 Gate Services Supervisor Relationship Specialty Start Date End Date Amy, Cristobal Chi PCP - General Family Medicine 11/20/11 Gate Services Supervisor Relationship Specialty Start Date End Date Amy, Cristobal Chi PCP - General Family Medicine 11/20/11 Gate Services Supervisor Relationship Specialty Start Date End Date Amy, [...] Role: Primary Care Physician Address: Address: [facility] [place] [address]- Care Team Related Persons Name: NONE, Care Team Personnel Name: WILL REYES MD Member Role: Primary Care Physician Address: Address: [facility] Care Team Related Persons Name: NONE, [...] BE BASED ON THE PRIMARY CLINICAL RECORDS. [employer] provides no warranty or guarantee of the accuracy or completeness of information in this document.
== END | disposition home or self-care (01) ==
LOC: POLAB3 11:15
PROVIDERS: PCP Family Medicine Geriatric Medicine; Visit Provider Family Medicine Geriatric Medicine
DX: R53.83 Other fatigue (principal); E78.5 Hyperlipidemia, unspecified
CPT/HCPCS: 36415; 80053; 80061; 84443; 85025

== ENCOUNTER → 2023-08-12 | Outpatient (CLI) | payer MEDICARE, SELFPAY | END | disposition home or self-care (01) | LOC: PSN 10:32 | PROVIDERS: PCP Family Medicine Geriatric Medicine; Referring Provider Family Medicine Geriatric Medicine; Visit Provider Family Medicine Geriatric Medicine | DX: R05.3 Chronic cough (principal) | CPT/HCPCS: 94010; 94060 ==

== ENCOUNTER → 2023-08-31 | Outpatient (CLI) | payer MEDICARE, SELFPAY ==
--- NOTE | 2023-08-31 16:00 | RAD_ITS ---
STUDY: X-RAY - RIGHT SHOULDER REASON FOR EXAM: Female, 63 years old. R SHOULDER PAIN TECHNIQUE: 4 views of the right shoulder. COMPARISON: None. FINDINGS: Normal glenohumeral articulation. There is mild acromioclavicular arthrosis. Normal acromion. Normal humeral head and visualized proximal humerus. The soft tissue structures are unremarkable. There is no demonstrated fracture. Normal visualized pulmonary apex. RAD/Shoulder min 2 Views IMPRESSION: Mild acromioclavicular arthrosis. Electronically Signed: Nima Verdugo MD at 8:29 EDT ,
--- NOTE | 2023-08-31 16:00 | RAD_ITS ---
HISTORY: CERVICAL RADICULOPATHY. TECHNIQUE: XR Spine Cervical 2 or 3 Views. COMPARISON: None. FINDINGS: VERTEBRAE: Vertebral body heights maintained. No acute fracture identified. ALIGNMENT: Very mild 1-2 mm anterolisthesis of C4-5. Mild reversal of the cervical lordosis. INTERVERTEBRAL DISCS: Degenerative endplate changes with mild intervertebral disc space narrowing of C3-4 and C5-6. SOFT TISSUES: No significant prevertebral soft tissue swelling. RAD/Cerv Spine 2 or 3 Views IMPRESSION: No acute fracture or dislocation identified in the cervical spine. Multilevel degenerative change as above. Electronically Signed: Leanne Cruz MD at 8:50 EDT ,
== END | disposition home or self-care (01) ==
LOC: RAD 15:58
PROVIDERS: PCP Family Medicine Geriatric Medicine; Referring Provider Family Medicine Geriatric Medicine; Visit Provider Family Medicine Geriatric Medicine
DX: M54.12 Radiculopathy, cervical region (principal); M25.511 Pain in right shoulder
CPT/HCPCS: 72040; 73030

== ENCOUNTER → 2023-10-15 | Outpatient (CLI) | payer MEDICARE, SELFPAY ==
[2023-10-15 12:28] LABS: Absolute Lymphocyte Count 1.86 X10^3/uL (0.83-4.51); Absolute Neutrophil Count 6.6 X10^3/uL (2.0-7.7); Basophil# 0.09 X10^3/uL; Eosinophil# 0.11 X10^3/uL; Eosinophils% 1.2 % (0-5); Hematocrit 41.5 % (37-47); Hemoglobin 13.9 g/dL (12.0-15.0); Lymphocyte # 1.86 X10^3/ul (0.83-4.51); Lymphocyte % 20.3 % (19-41); Mean Corp Hgb Conc 33.5 g/dL (32-36); Mean Corpuscular Hgb 32.8 pg (27.0-32.0); Mean Corpuscular Volume 97.9 fL (81-99); Mean Platelet Vol. 8.4 fl (6.2-12.0); Monocyte% 5.4 % (0-10); NRBC Flagged by Analyzer 0 % (0-5); Neutrophil # 6.58 X10^3/uL (2.7-7.7); Neutrophil % 71.7 % (47-70); Platelet Count 512 K/mm3 (150-450); RBC Distribution Width CV 12.7 % (11.6-14.6); RBC Distribution Width SD 45.6 fl (35.1-43.9); Red Blood Count 4.24 M/mm3 (4.2-5.4); White Blood Count 9.2 K/mm3 (4.4-11.0)
[2023-10-15 13:05] LABS: Vitamin D,25 Hydroxy 28.7 ng/mL
[2023-10-15 13:18] LABS: ALB/GLOB Ratio 1.1 RATIO (0.9-2.4); AST(SGOT) 17 U/L (15-37); Alanine Aminotransfer ALT/SGPT 23 U/L (13-56); Albumin, Serum 4.2 g/dL (3.2-5.0); Alkaline Phosphatase 95 U/L (45-117); Anion Gap 5 (5-15); BUN 12 mg/dL (7-18); BUN/Creat Ratio 11.3 RATIO (10-20); Calcium,Total 9.4 mg/dL (8.5-10.1); Chloride 98 mmol/L (98-107); Cholesterol 253 mg/dL (200); Creatinine, Serum 1.06 mg/dL (0.55-1.02); EST Glomerular Filtration Rate 55 mL/min (>60); Est Glom Filt Rate - Afr Amer 67 mL/min (>60); Globulin 3.8 g/dL (2.2-4.2); Glucose 97 mg/dL (74-106); High Density Lipoprotein 46 mg/dL; Potassium 3.9 mmol/L (3.5-5.1); Sodium Level 132 mmol/L (136-145); Thyroid Stim Hormone (TSH) 1.18 uIU/mL (0.358-3.74); Triglycerides 198 mg/dL; Very Low Density Lipoprotein 40 mg/dL (5-40)
== END | disposition home or self-care (01) ==
LOC: LAB 11:59
PROVIDERS: PCP Family Medicine Geriatric Medicine; Referring Provider Family Medicine Geriatric Medicine; Visit Provider Family Medicine Geriatric Medicine
DX: R53.83 Other fatigue (principal); E55.9 Vitamin D deficiency, unspecified; E78.5 Hyperlipidemia, unspecified
CPT/HCPCS: 36415; 80053; 80061; 82306; 84443; 85025

== ENCOUNTER → 2024-01-12 | Outpatient (CLI) | payer MEDICARE, SELFPAY ==
[2024-01-12 15:10] LABS: Absolute Lymphocyte Count 2.13 X10^3/uL (0.83-4.51); Absolute Neutrophil Count 5.1 X10^3/uL (2.0-7.7); Basophil# 0.06 X10^3/uL; Basophil% 0.8 % (0-1); Eosinophil# 0.11 X10^3/uL; Eosinophils% 1.4 % (0-5); Hematocrit 37.1 % (37-47); Hemoglobin 12.4 g/dL (12.0-15.0); Lymphocyte # 2.13 X10^3/ul (0.83-4.51); Lymphocyte % 26.9 % (19-41); Mean Corp Hgb Conc 33.4 g/dL (32-36); Mean Corpuscular Hgb 32.7 pg (27.0-32.0); Mean Corpuscular Volume 97.9 fL (81-99); Mean Platelet Vol. 8.9 fl (6.2-12.0); Monocyte% 6.3 % (0-10); NRBC Flagged by Analyzer 0 % (0-5); Neutrophil % 64.3 % (47-70); Platelet Count 506 K/mm3 (150-450); RBC Distribution Width CV 12.5 % (11.6-14.6); RBC Distribution Width SD 44.8 fl (35.1-43.9); Red Blood Count 3.79 M/mm3 (4.2-5.4); White Blood Count 7.9 K/mm3 (4.4-11.0)
[2024-01-12 16:03] LABS: ALB/GLOB Ratio 1.2 RATIO (0.9-2.4); AST(SGOT) 14 U/L (15-37); Alanine Aminotransfer ALT/SGPT 20 U/L (13-56); Alkaline Phosphatase 95 U/L (45-117); Anion Gap 5 (5-15); BUN 9 mg/dL (7-18); BUN/Creat Ratio 9.1 RATIO (10-20); Calcium,Total 9.2 mg/dL (8.5-10.1); Chloride 97 mmol/L (98-107); Cholesterol 259 mg/dL (200); Creatinine, Serum 0.99 mg/dL (0.55-1.02); EST Glomerular Filtration Rate 60 mL/min (>60); Est Glom Filt Rate - Afr Amer 73 mL/min (>60); Globulin 3.4 g/dL (2.2-4.2); Glucose 109 mg/dL (74-106); High Density Lipoprotein 51 mg/dL; Potassium 3.8 mmol/L (3.5-5.1); Protein, Total 7.4 g/dL (6.4-8.2); Sodium Level 131 mmol/L (136-145); Thyroid Stim Hormone (TSH) 0.893 uIU/mL (0.358-3.740); Triglycerides 160 mg/dL; Very Low Density Lipoprotein 32 mg/dL (5-40)
[2024-01-12 17:08] LABS: Vitamin D,25 Hydroxy 32.4 ng/mL
== END | disposition home or self-care (01) ==
LOC: POLAB3 14:37
PROVIDERS: PCP Family Medicine Geriatric Medicine; Visit Provider Family Medicine Geriatric Medicine
DX: E78.5 Hyperlipidemia, unspecified (principal); E55.9 Vitamin D deficiency, unspecified; R53.83 Other fatigue
CPT/HCPCS: 36415; 80053; 80061; 82306; 84443; 85025

== ENCOUNTER → 2024-02-07 | Outpatient (CLI) | payer MEDICARE, SELFPAY ==
--- NOTE | 2024-02-07 14:49 | BI_ITS ---
MAMMOGRAPHY - BILATERAL SCREENING REASON FOR EXAM: Female, 63 years old. Routine annual screening examination. PERTINENT HISTORY: Sister with breast cancer. TECHNIQUE: Digital bilateral breast terrence (3D mammographic acquisition) in the CC and MLO projections. 2-D mediolateral oblique (MLO) and craniocaudad (CC) views of both breasts were obtained. CAD: Full Field Digital Mammography with Computer Added Detection was performed. COMPARISON: Comparison is made with prior study dated June 24, 2020 and September 18, 2016. FINDINGS: Breast Composition: The breasts are heterogeneously dense, which may obscure small masses. There are no dominant masses or suspicious calcifications. Stable bilateral fat containing axillary lymph nodes. No other significant abnormalities are identified. There has been no significant change since the prior study. BI/SCRN MAMM (CAD)W/TERRENCE BILAT IMPRESSION: Stable bilateral screening mammogram. Yearly follow-up mammogram recommended. (A) ASSESSMENT CATEGORY: BIRADS Category 2: Benign. A letter regarding these results will be sent to the patient by the facility within 30 days. Approximately 10% of breast cancers are not detected by mammography. A normal mammogram should not delay biopsy of a clinically suspicious abnormality. [id number] Electronically Signed: Flo Reyes MD at 8:30 EDT ,
== END | disposition home or self-care (01) ==
LOC: OPBI 14:48
PROVIDERS: PCP Family Medicine Geriatric Medicine; Referring Provider Family Medicine Geriatric Medicine; Visit Provider Family Medicine Geriatric Medicine
DX: Z12.31 Encounter for screening mammogram for malignant neoplasm of breast (principal)
CPT/HCPCS: 77063; 77067

== ENCOUNTER → 2024-04-17 | Outpatient (CLI) | payer MEDICARE, SELFPAY ==
[2024-04-17 15:37] LABS: Absolute Lymphocyte Count 2.42 X10^3/uL (0.83-4.51); Absolute Neutrophil Count 7.4 X10^3/uL (2.0-7.7); Basophil# 0.07 X10^3/uL; Basophil% 0.6 % (0-1); Eosinophil# 0.29 X10^3/uL; Eosinophils% 2.6 % (0-5); Hematocrit 39.1 % (37-47); Hemoglobin 12.8 g/dL (12.0-15.0); Lymphocyte # 2.42 X10^3/ul (0.83-4.51); Mean Corp Hgb Conc 32.7 g/dL (32-36); Mean Corpuscular Hgb 32.5 pg (27.0-32.0); Mean Corpuscular Volume 99.2 fL (81-99); Mean Platelet Vol. 9.2 fl (6.2-12.0); Monocyte# 0.75 X10^3/uL; Monocyte% 6.8 % (0-10); NRBC Flagged by Analyzer 0 % (0-5); Neutrophil # 7.42 X10^3/uL (2.7-7.7); Neutrophil % 67.7 % (47-70); Platelet Count 457 K/mm3 (150-450); RBC Distribution Width CV 12.4 % (11.6-14.6); RBC Distribution Width SD 45.6 fl (35.1-43.9); Red Blood Count 3.94 M/mm3 (4.2-5.4)
[2024-04-17 16:24] LABS: Vitamin D,25 Hydroxy 33.1 ng/mL
[2024-04-17 16:27] LABS: ALB/GLOB Ratio 1.3 RATIO (0.9-2.4); AST(SGOT) 11 U/L (15-37); Alanine Aminotransfer ALT/SGPT 17 U/L (13-56); Albumin, Serum 4.3 g/dL (3.2-5.0); Alkaline Phosphatase 121 U/L (45-117); Anion Gap 6 (5-15); BUN 15 mg/dL (7-18); BUN/Creat Ratio 12.8 RATIO (10-20); Calcium,Total 9.2 mg/dL (8.5-10.1); Chloride 98 mmol/L (98-107); Cholesterol 243 mg/dL (200); Creatinine, Serum 1.17 mg/dL (0.55-1.02); EST Glomerular Filtration Rate 49 mL/min (>60); Est Glom Filt Rate - Afr Amer 60 mL/min (>60); Globulin 3.3 g/dL (2.2-4.2); Glucose 92 mg/dL (74-106); High Density Lipoprotein 47 mg/dL; Potassium 3.4 mmol/L (3.5-5.1); Protein, Total 7.6 g/dL (6.4-8.2); Sodium Level 135 mmol/L (136-145); Triglycerides 230 mg/dL; Very Low Density Lipoprotein 46 mg/dL (5-40)
== END | disposition home or self-care (01) ==
LOC: POLAB3 15:07
PROVIDERS: PCP Family Medicine Geriatric Medicine; Visit Provider Family Medicine Geriatric Medicine
DX: E78.5 Hyperlipidemia, unspecified (principal); R53.83 Other fatigue; E55.9 Vitamin D deficiency, unspecified
CPT/HCPCS: 36415; 80053; 80061; 82306; 84443; 85025

== ENCOUNTER → 2024-07-18 | Outpatient (CLI) | payer MEDICARE, SELFPAY ==
[2024-07-18 14:34] LABS: Absolute Lymphocyte Count 2.07 X10^3/uL (0.83-4.51); Absolute Neutrophil Count 5.4 X10^3/uL (2.0-7.7); Basophil# 0.12 X10^3/uL; Basophil% 1.4 % (0-1); Eosinophil# 0.13 X10^3/uL; Eosinophils% 1.6 % (0-5); Hematocrit 41.6 % (37-47); Hemoglobin 14.3 g/dL (12.0-15.0); Lymphocyte # 2.07 X10^3/ul (0.83-4.51); Lymphocyte % 24.8 % (19-41); Mean Corp Hgb Conc 34.4 g/dL (32-36); Mean Corpuscular Volume 96.1 fL (81-99); Monocyte% 7.2 % (0-10); NRBC Flagged by Analyzer 0 % (0-5); Neutrophil # 5.38 X10^3/uL (2.7-7.7); Neutrophil % 64.6 % (47-70); Platelet Count 514 K/mm3 (150-450); RBC Distribution Width CV 12.6 % (11.6-14.6); RBC Distribution Width SD 45.2 fl (35.1-43.9); Red Blood Count 4.33 M/mm3 (4.2-5.4); White Blood Count 8.3 K/mm3 (4.4-11.0)
[2024-07-18 18:45] LABS: ALB/GLOB Ratio 1.6 RATIO (0.9-2.4); AST(SGOT) 19 U/L (<=31); Alanine Aminotransfer ALT/SGPT 13 U/L (<=34); Albumin, Serum 4.9 g/dL (3.4-4.8); Alkaline Phosphatase 136 U/L (35-104); Anion Gap 14 (5-15); BUN 11 mg/dL (4-19); BUN/Creat Ratio 10.1 RATIO (10-20); Calcium,Total 9.4 mg/dL (7.6-11.0); Chloride 95 mmol/L (98-108); Creatinine, Serum 1.09 mg/dL (0.70-1.20); EST Glomerular Filtration Rate 56 (>60); Globulin 3.1 g/dL (2.2-4.2); Glucose 113 mg/dL (70-99); Potassium 3.7 mmol/L (3.3-5.1); Protein, Total 7.9 g/dL (5.9-8.4); Sodium Level 134 mmol/L (133-145); Total Bilirubin 0.33 mg/dL (0.00-1.30)
[2024-07-18 19:10] LABS: Vitamin D,25 Hydroxy 29.5 ng/mL (30-100)
[2024-07-18 19:21] LABS: Cholesterol 336 mg/dL (<=200); High Density Lipoprotein 53 mg/dL; Low Density Lipoprotein Calc. 256 mg/dL; Triglycerides 136 mg/dL; Very Low Density Lipoprotein 27 mg/dL (5-40)
== END | disposition home or self-care (01) ==
LOC: POLAB3 13:57
PROVIDERS: PCP Family Medicine Geriatric Medicine; Visit Provider Family Medicine Geriatric Medicine
DX: E78.5 Hyperlipidemia, unspecified (principal); I10 Essential (primary) hypertension; E55.9 Vitamin D deficiency, unspecified
CPT/HCPCS: 36415; 80053; 80061; 82306; 84443; 85025

== ENCOUNTER → 2024-09-04 | Outpatient (CLI) | payer MEDICARE, SELFPAY ==
[2024-09-04 18:24] LABS: Absolute Lymphocyte Count 1.94 X10^3/uL (0.83-4.51); Absolute Neutrophil Count 4.3 X10^3/uL (2.0-7.7); Basophil# 0.08 X10^3/uL; Basophil% 1.1 % (0-1); Eosinophil# 0.16 X10^3/uL; Eosinophils% 2.3 % (0-5); Hematocrit 38.4 % (37-47); Hemoglobin 13.2 g/dL (12.0-15.0); Lymphocyte # 1.94 X10^3/ul (0.83-4.51); Lymphocyte % 27.6 % (19-41); Mean Corp Hgb Conc 34.4 g/dL (32-36); Mean Corpuscular Hgb 32.9 pg (27.0-32.0); Mean Corpuscular Volume 95.8 fL (81-99); Mean Platelet Vol. 9.2 fl (6.2-12.0); Monocyte# 0.51 X10^3/uL; Monocyte% 7.3 % (0-10); NRBC Flagged by Analyzer 0 % (0-5); Neutrophil # 4.32 X10^3/uL (2.7-7.7); Neutrophil % 61.4 % (47-70); Platelet Count 510 K/mm3 (150-450); RBC Distribution Width CV 12.6 % (11.6-14.6); RBC Distribution Width SD 44.5 fl (35.1-43.9); Red Blood Count 4.01 M/mm3 (4.2-5.4)
[2024-09-04 20:24] LABS: ALB/GLOB Ratio 1.7 RATIO (0.9-2.4); AST(SGOT) 23 U/L (<=31); Alanine Aminotransfer ALT/SGPT 17 U/L (<=34); Albumin, Serum 4.5 g/dL (3.4-4.8); Alkaline Phosphatase 136 U/L (35-104); Anion Gap 12 (5-15); BUN 10 mg/dL (4-19); BUN/Creat Ratio 10.4 RATIO (10-20); Calcium,Total 9.5 mg/dL (7.6-11.0); Chloride 100 mmol/L (98-108); Creatinine, Serum 0.97 mg/dL (0.70-1.20); EST Glomerular Filtration Rate 65 (>60); Globulin 2.7 g/dL (2.2-4.2); Glucose 114 mg/dL (70-99); Potassium 3.9 mmol/L (3.3-5.1); Protein, Total 7.2 g/dL (5.9-8.4); Sodium Level 136 mmol/L (133-145); Total Bilirubin < 0.15 mg/dL (0.00-1.30); Vitamin D,25 Hydroxy 22.5 ng/mL (30-100)
[2024-09-04 20:37] LABS: Cholesterol 241 mg/dL (<=200); High Density Lipoprotein 47 mg/dL; Low Density Lipoprotein Calc. 168 mg/dL; Triglycerides 131 mg/dL; Very Low Density Lipoprotein 26 mg/dL (5-40); cholesterol:hdl ratio screen 5.15
== END | disposition home or self-care (01) ==
LOC: MFPLAB 16:56
PROVIDERS: PCP Family Medicine; Referring Provider Family Medicine; Visit Provider Family Medicine
DX: R03.0 Elevated blood-pressure reading, without diagnosis of hypertension (principal); R53.83 Other fatigue
CPT/HCPCS: 36415; 80053; 80061; 82306; 84443; 85025

== ENCOUNTER → 2024-09-29 | Outpatient (CLI) | payer MEDICARE, SELFPAY ==
--- NOTE | 2024-09-29 18:37 | CT_ITS ---
EXAM: CT Chest, Lung Cancer Screening Without Intravenous Contrast CLINICAL INDICATION: SCREENING CT LUNGS TECHNIQUE: Axial computed tomography images of the chest without intravenous contrast using low dose (LDCT) lung cancer screening protocol. This CT exam was performed using one or more of the following dose reduction techniques: automated exposure control, adjustment of the mA and/or kV according to patient size, and/or use of iterative reconstruction technique. COMPARISON: CT Lung Cancer Screening dated 06/24/2020 FINDINGS: LUNGS AND PLEURAL SPACES: Lung emphysema/COPD. Stable 2 mm nodule of the right upper lobe. Lingular atelectasis or scarring. No pneumothorax. No significant effusion. No new suspicious pulmonary nodules. HEART: Unremarkable. No cardiomegaly. No significant pericardial effusion. No significant coronary artery calcifications. BONES/JOINTS: Unremarkable. No acute fracture. No dislocation. SOFT TISSUES: Unremarkable. VASCULATURE: Unremarkable. No thoracic aortic aneurysm. LYMPH NODES: Unremarkable. No enlarged lymph nodes. CT/Low Dose CT Lung Screening IMPRESSION: 1. No new suspicious pulmonary nodules. 2. LUNG-RADS 2: Benign. Continue low-dose CT screening of the chest in 12 mon ths is recommended. Reading Location: [id number]
== END | disposition home or self-care (01) ==
PROVIDERS: PCP Family Medicine; Referring Provider Family Medicine; Visit Provider Family Medicine
DX: Z12.2 Encounter for screening for malignant neoplasm of respiratory organs (principal); Z87.891 Personal history of nicotine dependence
CPT/HCPCS: 71271

== ENCOUNTER 2024-10-28 18:46 | Emergency (ER) | payer MEDICARE, SELFPAY ==
[2024-10-28 18:46] VITALS: BP 165/81; PULSE 93; RESP 19; TEMP 36.7; O2SAT 97; BMI 30.8
[2024-10-28 19:12] LABS: Absolute Lymphocyte Count 3.07 X10^3/uL (0.83-4.51); Absolute Neutrophil Count 6.6 X10^3/uL (2.0-7.7); Basophil% 0.9 % (0-1); Eosinophil# 0.25 X10^3/uL; Eosinophils% 2.3 % (0-5); Hematocrit 39.7 % (37-47); Hemoglobin 13.4 g/dL (12.0-15.0); Lymphocyte # 3.07 X10^3/ul (0.83-4.51); Lymphocyte % 28.2 % (19-41); Mean Corp Hgb Conc 33.8 g/dL (32-36); Mean Corpuscular Hgb 32.1 pg (27.0-32.0); Mean Corpuscular Volume 95.2 fL (81-99); Mean Platelet Vol. 8.6 fl (6.2-12.0); Monocyte# 0.77 X10^3/uL; Monocyte% 7.1 % (0-10); NRBC Flagged by Analyzer 0 % (0-5); Neutrophil # 6.64 X10^3/uL (2.7-7.7); Neutrophil % 61.1 % (47-70); Platelet Count 479 K/mm3 (150-450); RBC Distribution Width SD 45.4 fl (35.1-43.9); Red Blood Count 4.17 M/mm3 (4.2-5.4); White Blood Count 10.9 K/mm3 (4.4-11.0)
[2024-10-28 19:15] LABS: Mucous, Urine 0 SEEN /hpf (<or=2+); Red Blood Cells-Urine 0 SEEN /hpf (0-5); White Blood Cells 0 SEEN /hpf (0-5)
[2024-10-28 19:16] LABS: Color, Urine Straw (Yellow); Glucose, Dipstick Normal (Normal); Ketone-Dipstick Negative (Negative); Leukocyte Esterase-Dipstick Negative /ul (Negative); Nitrite-Dipstick Negative (Negative); Occult Blood-Urine Negative /ul (Negative); Protein-Dipstick Negative (Negative); Urine Bilirubin Dipstick Negative (Negative); Urine Clarity Clear (Clear); Urine Urobilinogen Normal (Normal); Urine pH 6.5 (5.0 - 8.0)
[2024-10-28 19:22] LABS: Bacteria RARE /hpf (None Seen); Squamous Epithelial Cells - UA 0-5 SEEN /hpf (5-10)
[2024-10-28 19:49] LABS: ALB/GLOB Ratio 1.7 RATIO (0.9-2.4); AST(SGOT) 17 U/L (<=31); Alanine Aminotransfer ALT/SGPT 10 U/L (<=34); Albumin, Serum 4.7 g/dL (3.4-4.8); Alkaline Phosphatase 141 U/L (35-104); Anion Gap 13 (5-15); BUN 13 mg/dL (4-19); BUN/Creat Ratio 12.3 RATIO (10-20); Calcium,Total 9.6 mg/dL (7.6-11.0); Carbon Dioxide 25.1 mmol/L (21.0-32.0); Chloride 97 mmol/L (98-108); Creatinine, Serum 1.06 mg/dL (0.70-1.20); EST Glomerular Filtration Rate 58 (>60); Estimated Creatinine Clearance 46.75 ml/min (50-250); Globulin 2.8 g/dL (2.2-4.2); Glucose 125 mg/dL (70-99); Potassium 3.8 mmol/L (3.3-5.1); Protein, Total 7.6 g/dL (5.9-8.4); Sodium Level 135 mmol/L (133-145)
--- NOTE | 2024-10-28 19:56 | CT_ITS ---
PROCEDURE: ABDOMEN/PELVIS WITHOUT CONT 10/28/2024 REASON FOR EXAM: LEFT FLANK PAIN. VERSUS LEFT LOWER POSTERIOR RIB TECHNIQUE: ABDOMEN/PELVIS WITHOUT CONT Noncontrast technique limits evaluation of the abdominal and pelvic viscera. Coronal and Sagittal reconstruction series were provided. One or more dose reduction techniques were used (e.g., Automated exposure control, adjustment of the mA and/or kV according to patient size, use of iterative reconstruction technique). ORAL CONTRAST TYPE: None. COMPARISON: None. FINDINGS: Lung bases: Bibasilar atelectasis. The heart is normal in size. Liver: The unopacified liver is normal in size. No biliary ductal dilation. Gallbladder: No radiopaque stones within the gallbladder. Spleen: Normal in size. Pancreas: The unopacified pancreas is unremarkable. Adrenals: No adrenal mass. Kidneys: No hydronephrosis or nephrolithiasis. Bladder: Distended and unremarkable. Reproductive Organs: Normal uterine size and contour. Ovaries are unremarkable. Bowel: The bowel loops are nondilated. Moderate retained fecal material throughout the colon. No ascites or pneumoperitoneum. Normal appendix. Lymph nodes: Visualization is limited without the use of IV contrast. No lymphadenopathy. Vasculature: Moderate calcific plaque of the aortoiliac vessels. Bones: Mild thoracolumbar spondylosis. CT/Abdomen/Pelvis without Cont IMPRESSION: No acute abdominopelvic finding. Reading Location: [id number]
--- NOTE | 2024-10-28 19:58 | EDS_ITS ---
HPI HPI - GI History of Present Illness Chief Complaint: Flank Pain Detail of Chief Complaint: Left flank pain since yesterday. Denies any fall injury or trauma. Informant: patient and family Abdominal Pain/Flank Pain Onset: Today and Yesterday Context: Gradual Onset Timing: Continuous Quality: Aching and Sharp Current Severity: Mild Maximum Severity: Moderate Worsened by: Nothing Relieved by: Nothing Nausea/Vomiting/Emesis GI Symptom: Negative for Nausea or Vomiting Diarrhea/Melena/Hematochezia GI Symptom: Negative for Diarrhea, Melena or Hematochezia Associated Symptoms Associated Symptoms: Negative for Dysuria, Frequency, Hematuria or Urgency Narrative Narrative: 64-year-old female past medical history of anxiety depression. Complaint left flank pain for 2 days. Denies any fall injury or trauma. No prior history. No history of kidney stones. No dysuria. No fever. No chest pain. No abdominal pain. No shortness of breath. Nothing particular makes the pain better or worse. Denies any known injury. No worse with movement. Prior similar symptoms: No Recent Illness/Hospitalization: No PFSH PFSH Medical History Vitamin D deficiency Osteoarthritis Chronic pain Depression Anxiety Hyperlipidemia Home Medications ?Medication ?Instructions ?Recorded ?Last Taken ?Type lamotrigine 200 mg tablet 400 mg PO DAILY 08/26/20 Unk nown History pantoprazole 40 mg tablet,delayed 40 mg PO DAILY #30 t abs 09/16/20 Unknown Rx release benztropine 1 mg tablet 1 mg PO DAILY 04/25/23 Unkno wn History galantamine 16 mg 24 hr 16 mg PO DAILY 04/25/23 Unkn own History capsule,extended release Allergy/AdvReac Type Severity Reaction Status Date / Time No Known Allergies Allergy Verified 10/28/24 18:46 Family History Father Asthma Heart disease Osteoporosis Mother Arthritis Diabetes Thyroid disorder Brother CVA (cerebral vascular accident) Sister Breast cancer Surgical History Hx of colonoscopy Hx of exploratory laparotomy Social History household members: family housing: house Smoking Status: Current every day smoker tobacco type: cigarettes second hand exposure: No alcohol intake: never substance use type: does not use caffeine: Yes ROS ROS ED ROS Narrative Left flank pain. No other symptoms. Constitutional Constitutional ED: Denies chills or fever(s) ENT ENT ED: Denies ear pain Cardiovascular Cardiovascular: Denies chest pain Respiratory/Chest Respiratory/Chest: Denies cough or dyspnea Gastrointestinal Gastrointestinal: Reports other Details: Left flank/posterior left rib cage pain. ; Denies abdominal pain Genitourinary Genitourinary ED: Denies dysuria or hematuria Musculoskeletal Musculoskeletal: Reports back pain; Denies arthralgias Integumentary Denies abscess Neurologic Neurologic: Denies headache(s) Psychiatric Psychiatric: Denies anxiety Endocrine Endocrinology: Denies polydipsia Hematologic/Lymphatic Hematologic/Lymphatic: Denies easy bleeding Allergic/Immunologic Allergic/Immunologic ED: Denies mouth swelling, tongue swelling or urticaria EXAM Physical Exam Narrative Exam Narrative: Well-appearing 64-year-old female. Vital signs stable afebrile. Accompanied by another woman. No acute distress. H EENT exam pupils round react light. moist mucousmembranes. Neck nontender no lymphadenopathy. Lungs clear to auscultation bilaterally. Heart regular rhythm rate about 90 no murmur. Chest wall and ribs anteriorly nontender. Abdomen soft, nontender, nondistended, normal bowel sounds without peritoneal signs. Moving all 4 extremities. Nontender no edema. Normal strength. Normal range of motion. Back on place he is tender to the left posterior rib cage. There is no redness or warmth. No rash. No shingles. No bruising or signs of trauma. No crepitance. No CVA tenderness. Spine nontender. Neurologically she is awake alert. Answering questions following commands. Const Vital Signs: 10/28/24 18:46 10/28/24 20:46 Temperature 98.1 F Temperature Source Temporal Pulse Rate 93 82 Respiratory Rate 19 H Blood Pressure 165/81 H 113/79 Blood Pressure Mean 109 90 Pulse Ox 97 93 Oxygen Delivery Method Room Air Room Air Positive well nourished and well developed; Negative for cachectic, contractures or unkempt General Appearance ED: well developed and NAD; Negative for unkempt, cachectic, contractures or pallor Nutritional Appearance: Negative for cachectic HEENT Reports moist mucous membranes normocephalic and atraumatic Eyes PERRL and EOMs intact bilaterally General Eye ED: Negative for pale conjunctiva Neck no lymphadenopathy, supple and no JVD Resp normal respiratory effort and clear to auscultation bilaterally Cardio regular rate, regular rhythm, S1 normal heart sound, S2 normal heart sound and no murmurs GI non-tender, non-distended and no masses GI Narrative: No abdominal pain. Inspection: Negative for abdominal distention Auscultation: normoactive bowel sounds Palpation: soft; Negative for tender, guarding, hernia, mass, pulsatile mass or rebound tenderness present Back/Spine no CVA tenderness Back/Spine Narrative: Left posterior rib cage tenderness. Normal appearance. No crepitance. No rash. General Back: Negative for CVA tenderness Cervical Spine: Negative for cervical spine tenderness Thoracic Spine / Upper Back: Negative for thoracic spinal tenderness Lumbar Spine / Lower Back: Negative for lumbar spinal tenderness Extremity full ROM General Extremety ED: Negative for edema or tenderness General Extremity: Negative for edema Neuro CN's II-XII intact bilaterally and moves all extremities Sensorium / Orientation: alert, oriented to person, oriented to place and oriented to time; Negative for orientation impaired or confused Motor Exam: strength 5/5 throughout Psych mental status grossly normal and thought process normal Appearance: Negative for unkempt Attitude: No agitated Mood & Affect: Negative for depressed, anxious or tearful Skin no wounds General Skin Exam: Negative for jaundice or pallor Lesions: no lesions Rashes: no rashes MDM MDM MDM Narrative Medical decision making narrative: 64-year-old female 2-day history of left flank pain. No prior history of kidney stone. This may be musculoskeletal. CAT scan and labs are being obtained. She did request some for pain to be given morphine and Zofran. Repeat exam patient is doing well at 9:30 PM. I think it is musculoskeletal left posterior rib cage pain. CAT scan labs are unremarkable otherwise exam is benign abdomen is nontender. Ice to the area. Motrin and Tylenol for pain. Outpatient follow-up as needed. History & Record Review Discussion w/independent historian: Patient Additional record(s) reviewed:: Prior inpatient record, Prior outpatient record, Prior ED visit and Prior labs Lab Data Attestation: I reviewed the patient's lab results. Lab results narrative: CBC white count 10.9. H&H 13 and 39. Platelets 479. Electrolytes show sodium 135. Gap 13. Normal BUN and creatinine. Glucose 125. Liver enzymes normal. Urinalysis negative. No white or red cells. No nitrites. Only rare bacteria. CAT scan no acute abnormality. No kidney stone. Labs: Laboratory Results - last 24 hr 10/28/24 10/28/24 19:02 19:10 WBC 10.9 RBC 4.17 L Hgb 13.4 Hct 39.7 MCV 95.2 MCH 32.1 H MCHC 33.8 RDW Std Deviation 45.4 H RDW Coeff of Jeanne 13.0 Plt Count 479 H MPV 8.6 Immature Gran % (Auto) 0.400 Neut % (Auto) 61.1 Lymph % (Auto) 28.2 [place] % (Auto) 7.1 Eos % (Auto) 2.3 Baso % (Auto) 0.9 Absolute Neuts (auto) 6.6 Absolute Lymphs (auto) 3.07 Nucleated RBC % 0 Sodium 135 Potassium 3.8 Chloride 97 L Carbon Dioxide 25.1 Anion Gap 13 BUN 13 Creatinine 1.06 Estim Creat Clear Calc 46.75 L Est GFR (MDRD) Non-Af 58 L BUN/Creatinine Ratio 12.3 Glucose 125 H Calcium 9.6 Total Bilirubin 0.20 AST 17 ALT 10 Alkaline Phosphatase 141 H Total Protein 7.6 Albumin 4.7 Globulin 2.8 Albumin/Globulin Ratio 1.7 Urine Color Straw Urine Clarity Clear Urine pH 6.5 Ur Specific [place] 1.010 Urine Protein Negative Urine Glucose (UA) Normal Urine Ketones Negative Urine Occult Blood Negative Urine Nitrite Negative Urine Bilirubin Negative Urine Urobilinogen Normal Ur Leukocyte Esterase Negative Urine RBC 0 SEEN Urine WBC 0 SEEN Ur Squamous Epith Cells 0-5 SEEN Urine Bacteria RARE Urine Mucus 0 SEEN Radiography Diagnostic Testing: Clinical Impression(s) from Imaging Studies Abdomen/Pelvis CT 10/28/24 19:56 IMPRESSION: No acute abdominopelvic finding. Reading Location: [facility] Discharge Plan Triage Chief Complaint: Flank Pain ED Provider: Abdirizak Perla Dx/Rx/DC Orders Clinical Impression: Back strain Instructions: ED Back Sprain/Strain Prescriptions: No Action lamotrigine 200 mg tablet 400 mg PO DAILY pantoprazole 40 mg tablet,delayed release (DR/EC) 40 mg PO DAILY Qty: 30 4RF benztropine 1 mg tablet 1 mg PO DAILY galantamine 16 mg capsule,ext rel. pellets 24 hr 16 mg PO DAILY Primary Care Provider: Jaswinder Muñiz Referrals: Jaswinder Muñiz MD [Primary Care Provider] - 3-5 Days if not improving Activity Restrictions/Additional Instructions: Hot shower, warm bath to the area. Ice. Motrin for pain and inflammation and Tylenol for pain. Your labs and CAT scan look good. I suspect you have a strained muscle between your rib cage and your back. This should progressively get better. Follow-up with your doctor if not. Print Language: Tunisian Disposition Disposition: Home, Self Care
[2024-10-28] MEDS: Morphine 4 MG/ML Syringe IV (20:10)
[2024-10-28] MEDS: Ondansetron 4 MG/2 ML Vial IV (20:10)
--- OUTSIDE RECORDS SUMMARY | 2024-10-28 20:25 | XMS RPT_ITS | CCD ---
Author Organization [facility] Care Team Providers Care [employer] Name Role Phone Lisette Rees Unavailable Unavailable Lisette Rees Unavailable Unavailable CHANNING PATEL, DR SOLIS Primary Care Physician Channing, Yobany Jackson Primary Care Provider CHANNING PATEL, DR SOLIS Primary Care Physician Yobany Snell Chi Primary Care Provider Yobany Snell Chi Primary Care Provider Yobany Snell Chi Primary Care Provider CHANNING, YOBANY CHI Referring Unavailable SABAS JOHNSON Attending Unavailable NEFTALY COKER Attending Unavail able CHANNING, YOBANY CHI Referring Unavailable CHANNING, YOBANY CHI Primary Care Unavailable NELSY CHAUDHARI Attending Unavailable NELSY CHAUDHARI Referring Unavailable CHANNING, YOBANY CHI Primary Care Unavailable NELSY CHAUDHARI Attending Unavailable NELSY CHAUDHARI Referring Unavailable CHANNING, YOBANY CHI Primary Care Unavailable NELSY CHAUDHARI Attending Unavailable CHANNING, YOBANY CHI Primary Care Unavailable NELSY CHAUDHARI Attending Unavailable CHANNING, YOBANY CHI Primary Care Unavailable NELSY CHAUDHARI Attending Unavailable CHANNING, YOBANY CHI Primary Care Unavailable NELSY CHAUDHARI Attending Unavailable CHANNING, YOBANY CHI Primary Care Unavailable Channing PATEL, Dr. Yobany Paz Primary Care Provider Channing PATEL, Dr. Yobany Paz Attending Provider Channing PATEL, Dr. Yobany Paz Primary Care Provider Channing PATEL, Dr. Yobany Paz Attending Provider Jaswinder Muñiz MD Primary Care Provider Jaswinder Muñiz MD Attending Provider Jaswinder Muñiz MD Referring Provider [phone] Channing, Yobany Chi Attending Unavailable Channing, Yobany Chi Referring Unavailable Channing, Yobany Chi Primary Care Unavailable Channing, Yobany Chi Referring Unavailable Channing, Yobany Chi Primary Care Unavailable Channing, Yobany Chi Attending Unavailable Channing, Yobany Chi Attending Unavailable Channing, Yobany Chi Primary Care Unavailable Channing, Yobany Chi Attending Unavailable Channing, Yobany Chi Referring Unavailable Channing, Yobany Chi Primary Care Unavailable Antonino, Chalon Attending Unavailable Antonino, Chalon Referring Unavailable Antonino, Chalon Primary Care Unavailable Sibilia, Abrahan V Attending Unavailable Sibilia, Abrahan V Referring Unavailable Channing, Yobany Chi Primary Care Unavailable Antonino, Chalon Primary Care Unavailable Antonino, Chalon Attending Unavailable Antonino, Chalon Referring Unavailable Antonino, Chalon Primary Care Unavailable Antonino, Chalon Attending Unavailable Antonino, Chalon Referring Unavailable Channing, Yobany Chi Primary Care Unavailable Channing, Yobany Chi Attending Unavailable Channing, Yobany Chi Attending Unavailable Channing, Yobany Chi Primary Care Unavailable Channing, Yobany Chi Attending Unavailable Channing, Yobany Chi Referring Unavailable Channing, Yobany Chi Primary Care Unavailable Channing, Yobany Chi Attending Unavailable Channing, Yobany Chi Primary Care Unavailable Allergies Allergy Classification Reported Allergen(s) Allergy Type Date of Onset Reaction(s) Facility (20 sources) gabapentin; Translations: [gabapentin] Drug Allergy 01-31-2013 Rash [facility] Work Phone: (4 sources) levoFLOXacin; Translations: [levofloxacin] Drug Allergy Tongue swelling [facility] Work Phone: Medications Current Medications Medication Drug Class(es) Dates Sig (Normalized) Sig (Original) acetaminophen 325 mg oral capsule (4 sources) Start: 08-24-2018 acetaminophen 325 mg oral capsule Dose : 650 mg =, Oral, q6h, PRN Pain, scale 1-3, # 20 cap(s), 0 Refill(s), Pharmacy: [facility]/pharmacy #[id number] Start Date: 08/24/18 Status: Ordered benztropine mesylate 1 mg oral tablet (20 sources) Anticholinergic, Antihistamine Start: 04-25-2023 take 1 tablet by mouth once daily Benztropine 1 mg tablet Active 1 mg PO DAILY April 25, 2023 1:00am Start: 09-02-2021 take 1 tablet by vivien th twice daily benztropine (COGENTIN) 0.5 mg tablet take 1 tablet by mouth twice a day if needed for MUSCLE TWITCHING 0 09/02/2021 Active Comment on above: take 1 tablet by vivien th twice a day if needed for MUSCLE TWITCHING 72 hr fentaNYL 0.025 mg/hr transdermal system (20 sources) Opioid Agonist Start: 10-22-2022 End: 11-21-2022 fentaNYL (DURAGESIC) 25 mcg/hr Indications: Degeneration of intervertebral disc of lumbar region Apply 1 Patch as directed every 48 hours for 30 days. Do not start before October 22, 2022. 15 Patch 0 10/22/2022 11/21/2022 Active Start: 09-17-2022 End: 10-20-2022 fentaNYL (DURAGESIC) 25 mcg/ hr Indications: Degeneration of intervertebral disc of lumbar region Apply 1 Patch as directed every 48 hours for 30 days. Do not start before September 17, 2022. 15 Patch 0 09/17/2022 10/20/2022 Discontinued Start: 08-18-2022 End: 08-12-2022 fentaNYL 37.5 mcg/hour pt72 Indications: Degeneration of intervertebral disc of lumbar region Apply 1 Patch as directed every 48 hours for 30 days. Do not start before August 18, 2022. 15 Patch 0 08/18/2022 08/12/2022 Discontinued Start: 08-18-2022 End: 09-17-2022 fentaNYL 37.5 mcg/hour pt72 Indications: Degeneration of intervertebral disc of lumbar region Apply 1 Patch as directed every 48 hours for 30 days. Do not start before August 18, 2022. 15 Patch 0 08/18/2022 09/17/2022 Active Start: 07-19-2022 End: 07-31-2022 fentaNYL (DURAGESIC) 50 mcg/ hr Indications: Degeneration of cervical intervertebral disc APPLY 1 PATCH TO SKIN EVERY OTHER DAY DIRECTED Do not start before July 19, 2022. 15 Patch 0 07/19/2022 07/23/2022 Discontinued (Dosage adjustment) Start: 06-19-2022 End: 07-15-2022 fentaNYL (DURAGESIC) 50 mcg/ hr Indications: Degeneration of cervical intervertebral disc APPLY 1 PATCH TO SKIN EVERY OTHER DAY DIRECTED Do not start before June 19, 2022. 15 Patch 0 06/19/2022 07/15/2022 Discontinued Start: 04-18-2022 End: 06-13-2022 fentaNYL (DURAGESIC) 50 mcg/ hr Indications: Degeneration of cervical intervertebral disc APPLY 1 PATCH TO SKIN EVERY OTHER DAY DIRECTED Do not start before May 20, 2022. 15 Patch 0 05/20/2022 06/11/2022 Discontinued Start: 2022 End: 04-15-2022 apply 1 dose transdermal route every other day fentaNYL (DURAGESIC) 50 mcg/hr Indications: Degeneration of cervical intervertebral disc APPLY 1 PATCH TO SKIN EVERY OTHER DAY DIRECTED 15 Patch 0 2022 04/15/2022 Discontinued Start: 01-02-2022 End: 02-02-2022 fentaNYL (DURAGESIC) 50 mcg/ hr Indications: Degeneration of cervical intervertebral disc APPLY 1 PATCH TO SKIN EVERY OTHER DAY DIRECTED Do not start before January 15, 2022. 15 Patch 0 01/15/2022 02/02/2022 Active Start: 11-30-2021 End: 12-30-2021 apply 1 dose transdermal route every other day fentaNYL (DURAGESIC) 50 mcg/hr Indications: Degeneration of cervical intervertebral disc APPLY 1 PATCH TO SKIN EVERY OTHER DAY DIRECTED Do not start before November 30, 2021. 15 Patch 0 11/30/2021 12/30/2021 Discontinued Start: 11-30-2021 End: 11-28-2021 apply 1 dose transdermal route every other day fentaNYL (DURAGESIC) 50 mcg/hr Indications: Degeneration of cervical intervertebral disc APPLY 1 PATCH TO SKIN EVERY OTHER DAY DIRECTED Do not start before November 30, 2021. 15 Patch 0 11/30/2021 11/28/2021 Discontinued Start: 11-30-2021 End: 12-30-2021 apply 1 dose transdermal route every other day fentaNYL (DURAGESIC) 50 mcg/hr Indications: Degeneration of cervical intervertebral disc APPLY 1 PATCH TO SKIN EVERY OTHER DAY DIRECTED Do not start before November 30, 2021. 15 Patch 0 11/30/2021 12/30/2021 Active Start: 11-30-2021 End: 11-28-2021 apply 1 dose transdermal route every other day fentaNYL (DURAGESIC) 50 mcg/hr Indications: Degeneration of cervical intervertebral disc APPLY 1 PATCH TO SKIN EVERY OTHER DAY DIRECTED Do not start before November 30, 2021. 15 Patch 0 11/30/2021 11/28/2021 Discontinued Start: 10-01-2021 End: 11-28-2021 apply 1 dose transdermal route every other day fentaNYL (DURAGESIC) 50 mcg/hr APPLY 1 PATCH TO SKIN EVERY OTHER DAY DIRECTED 0 10/01/2021 11/28/2021 Discontinued Start: 08-26-2020 End: 04-25-2023 Fentanyl 50 mcg/hr patch 72 hour Discontinued 1 NMA TD .Q48H August 26, 2020 12:00am April 25, 2023 4:47pm Start: 08-26-2020 End: 04-25-2023 Fentanyl Discontinued 1 PATC H TD .Q48H August 26, 2020 12:00am April 25, 2023 4:47pm Start: 05-25-2016 fentaNYL Dose : 50 mcg =, Topical, q48h, 0 Refill(s) Start Date: 05/25/16 Status: Ordered Start: 12-24-2015 End: 08-26-2020 Fentanyl 1 EACH patch 72 ariel r Discontinued 5 ug TD Q48H December 24, 2015 12:00am August 26, 2020 2:03pm Start: 07-19-2015 FENTANYL 50 MC G/HR PT72 FENTANYL [id number] [place] End: 07-19-2015 FENTANYL 75 MCG/HR PT72 ever y 72 hrs FENTANYL [id number] [place] Comment on above: APPLY 1 PATCH TO SKI N EVERY OTHER DAY DIRECTED Do not start before November 30, 2021. APPLY 1 PATCH TO SKI N EVERY OTHER DAY DIRECTED APPLY 1 PATCH TO SKI N EVERY OTHER DAY DIRECTED Do not start before January 02, 2022. APPLY 1 PATCH TO SKI N EVERY OTHER DAY DIRECTED Do not start before January 15, 2022. APPLY 1 PATCH TO SKI N EVERY OTHER DAY DIRECTED Do not start before 2022. APPLY 1 PATCH TO SKI N EVERY OTHER DAY DIRECTED Do not start before April 18, 2022. APPLY 1 PATCH TO SKI N EVERY OTHER DAY DIRECTED Do not start before May 20, 2022. APPLY 1 PATCH TO SKI N EVERY OTHER DAY DIRECTED Do not start before June 19, 2022. APPLY 1 PATCH TO SKI N EVERY OTHER DAY DIRECTED Do not start before July 19, 2022. Apply 1 Patch as dir ected every 48 hours for 30 days. Do not start before August 18, 2022. Apply 1 Patch as dir ected every 48 hours for 30 days. Do not start before October 22, 2022. Apply 1 Patch as dir ected every 48 hours for 30 days. Do not start before September 17, 2022. Flovent HFA 110 mcg/inh inhalation aerosol (1 source) Start: 10-03-19 take 1 puff(s) by inhalation twice daily Flovent HFA 110 mcg/inh inhalation aerosol See Instructions, 1 puff(s) Inhalation BID, # 1 EA, 0 Refill(s), [facility] [address] 152.4, cm, 10/03/19 13:39:00 EDT, Height, kg, 10/03/19 13:39:00 EDT, Dosing Weight Start Date: 10/03/19 Status: Ordered 120 actuat fluticasone propionate 0.11 mg/actuat metered dose inhaler (2 sources) Corticosteroid Start: 10-03-19 take 1 puff(s) by inhalation twice daily Flovent HFA 110 mcg/inh inhalation aerosol See Instructions, 1 puff(s) Inhalation BID, # 1 EA, 0 Refill(s), [facility] [address] 152.4, cm, 10/03/19 13:39:00 EDT, Height, kg, 10/03/19 13:39:00 EDT, Dosing Weight Start Date: 10/03/19 Status: Ordered 24 hr galantamine hydrobromide 16 mg extended release oral capsule (13 sources) Start: 04-25-20 take 1 capsule by mouth once daily Galantamine 16 mg capsule,ext rel. pellets 24 hr Active 16 mg PO DAILY April 25, 2023 1:00am take 2 tablets by mouth once rissa ly galantamine (RAZADYNE) 8 mg tablet Take 16 mg by mouth once daily. 0 Active Comment on above: Take 16 mg by mouth once daily. lamoTRIgine 200 mg oral tablet (20 sources) Mood Stabilizer, Anti-epileptic Agent Start: 08-26-2020 take 400 mg by mouth once daily Lamotrigine Active 400 MG PO DAILY August 26, 2020 12:00am Start: 02-06-2020 take 2 tablets by mo uth once daily Lamotrigine 200 mg tablet Active 400 mg PO DAILY August 26, 2020 12:00am Start: 02-06-2020 take 200 mg by mouth twice daily Lamotrigine Active 200 MG PO TWICE A DAY August 25, 2020 11:00pm Start: 07-19-2015 LAMOTRIGINE 20 0 MG TABS daily LAMOTRIGINE [id number] [place] Start: 03-08-2015 End: 08-26-2020 Lamotrigine 150 MG tablet Discontinued 200 mg PO DAILY March 08, 2015 12:00am August 26, 2020 2:02pm Start: 03-08-2015 End: 08-26-2020 take 200 mg by mouth once daily Lamotrigine Discontinu ed 200 MG PO DAILY March 08, 2015 12:00am August 26, 2020 2:02pm take 2 tablets by mo [facility] once daily lamoTRIgine 25 mg tablet Take 50 mg by mouth once daily. 0 Active End: 07-19-2015 take 1 tablet by mouth once daily LAMOTRIGINE 150 MG TABS One tablet by mouth daily LAMOTRIGINE [id number] [place] Comment on above: Take 50 mg by mouth once daily. Take 400 mg by mouth once daily. methocarbamol 500 mg oral tablet (16 sources) Muscle Relaxant Start: End: take 1 tablet by mouth three times daily as needed methocarbamol (ROBAXIN) 500 mg tablet Indications: Fibromyalgia Take 1 tablet by mouth three times daily as needed. 90 tablet 3 10/27/2022 02/24/2023 Active Start: 10-19-2022 take 1 tablet by vivien three times daily as needed methocarbamol (ROBAXIN) 500 mg tablet Indications: Fibromyalgia TAKE 1 TABLET BY MOUTH THREE TIMES A DAY NEEDED 90 tablet 3 10/19/2022 Active Start: 05-04-2022 End: 09-01-2022 take 1 tablet by mouth three times daily as needed methocarbamol (ROBAXIN) 500 mg tablet Indications: Fibromyalgia Take 1 tablet by mouth three times daily as needed. 90 tablet 3 05/04/2022 09/01/2022 Active Start: 01-06-2022 End: 05-06-2022 take 1 tablet by mouth every eight hours as needed methocarbamol (ROBAXIN) 500 mg tablet Take 1 tablet by mouth every 8 hours as needed. 90 tablet 3 01/06/2022 05/04/2022 Discontinued Comment on above: Take 1 tablet by vivien th every 8 hours as needed. Take 1 tablet by vivien th three times daily as needed. TAKE 1 TABLET BY VIVIEN TH THREE TIMES A DAY NEEDED Multivitamin preparation (3 sources) Start: 9 take 1 tablet by mouth once daily Multivitamin Dose = 1 tab(s), Oral, Daily, 0 Refill(s) Start Date: 07/13/18 Status: Ordered nystatin 100,000 units/mL oral suspension (1 source) Start: 2 End: 2 take 1 dose by mouth four times daily nystatin 100,000 units/mL oral suspension Dose : 500,000 unit(s) = 5 mL, Oral, QID, X 10 day(s), # 200 mL, 0 Refill(s), 08/11/21 22:01:00 EDT, Painful mouth Start Date: 08/01/21 Stop Date: 08/11/21 Status: Ordered omeprazole 40 mg oral tablet (18 sources) Proton Pump Inhibitor Start: 9 take 1 dose by mouth once daily omeprazole Dose : 40 mg =, Oral, qDay, 0 Refill(s) Start Date: 07/13/18 Status: Ordered Start: 01-05-2017 End: 09-16-2020 take 1 capsule by mouth once daily Omeprazole 40 MG capsule Discontinued 40 mg PO DAILY January 05, 2017 12:00am September 16, 2020 9:39am pantoprazole 40 mg delayed release oral tablet (20 sources) Proton Pump Inhibitor Start: 09-16-2020 take 1 tablet by mouth once daily Pantoprazole 40 mg tablet,delayed release (DR/EC) Active 40 mg PO DAILY September 16, 2020 12:00am Comment on above: pantoprazole 40 mg t ablet,delayed release (DR/EC) levothyroxine sodium 0.025 mg oral tablet (20 sources) l-Thyroxine Start: 07-13-2018 Synthroid 25 mcg (0.025 mg) oral tablet Dose : 25 mcg = 1 tab(s), Oral, qDayAC, 0 Refill(s) Start Date: 07/13/18 Status: Ordered Start: 07-19-2015 LEVOTHYROXINE SODIUM 50 MCG TABS LEVOTHYROXINE SODIUM [id number] [place] Start: 03-08-2015 End: 04-25-2023 take 1 tablet by mouth once daily Levothyroxine 25 MCG tablet Discontinued 25 ug PO DAILY March 08, 2015 12:00am April 25, 2023 4:48pm take 1 tablet by vivien th once daily Levothyroxine 25 mcg cap Take 1 tablet by mouth once daily. 0 Active Comment on above: Take 1 tablet by vivien th once daily. Vitamin D3 (3 sources) Start: 03-01-2019 Vitamin D3 Dos e : 1,000 unit(s) = 1 tab(s), Oral, BID, # 30 tab(s), 0 Refill(s) Start Date: 03/01/19 Status: Ordered Completed/Discontinued Medications Medication Drug Class(es) Dates Sig (Normalized) Sig (Original) acetaminophen 325 mg / oxyCODONE hydrochloride 5 mg oral tablet (20 sources) Opioid Agonist Start: 12-24-2015 End: 05-04-2022 Oxycodone-Acetamino phen 1 TABLET tablet Discontinued 1 {tbl} PO EVERY 8 HOURS NEEDED as needed for Pain December 24, 2015 12:00am August 26, 2020 2:04pm Start: 12-24-2015 End: 08-26-2020 take 1 tablet by mouth every eight hours as needed Oxycodone-Acetaminophen Discontinued 1 TABLET PO EVERY 8 HOURS NEEDED December 24, 2015 12:00am August 26, 2020 2:04pm Start: 07-19-2015 PERCOCET 5-325 MG TABS OXYCODONE-ACETAMINOPHEN [id number] [place] Comment on above: Take 1 tablet by vivien th every 8 hours as needed. Albuterol (4 sources) beta2-Adrenergic Agonist Start: 2019 End: 2019 take 2 puff(s) by inhalation every four hours as needed for wheezing Ventolin HFA MDI (90 mcg/inh) inhalation aerosol 2 puff(s), Inhalation, q4h, PRN as needed for wheezing, # 1 EA, 1 Refill(s), [facility] [address] 152.4, cm, 10/03/19 13:39:00 EDT, Height, kg, 10/03/19 13:39:00 EDT, Dosing Weight Start Date: 10/03/19 Stop Date: 12/02/19 Status: Ordered cholecalciferol 0.025 mg oral tablet (20 sources) Vitamin D take 1 tablet by mouth once daily cholecalciferol (VITAMIN D3) 1,000 unit tab tablet Take 1,000 Units by mouth once daily. 0 Active Comment on above: Take 1,000 Units by mouth once daily. clonazePAM 1 mg oral tablet (20 sources) Benzodiazepine Start: 2020 End: 2022 take 1 tablet by mouth twice daily as needed for anxiety Clonazepam 1 mg tablet Discontinued 1 mg PO TWICE A DAY as needed for Anxiety August 26, 2020 12:00am April 25, 2023 4:47pm Start: 01-15-2010 End: 06-11-2022 clonazepam(KLONOPIN 1 MG TAB ) Take one(1) tablet daily at bedtime as needed. 0 01/15/2010 06/11/2022 Discontinued (Discontinued by Patient) End: 07-19-2015 take 1 tablet by mouth three times daily KLONOPIN 0.5 MG TABS One tablet by mouth three times daily CLONAZEPAM [id number] [place] Comment on above: Take one(1) tablet d aily at bedtime as needed. cloNIDine hydrochloride 0.1 mg oral tablet (14 sources) Central alpha-2 Adrenergic Agonist Start: take 1 tablet by mouth twice daily cloNIDine HCl (CATAPRES) 0.1 mg tablet Take 1 tablet by mouth twice daily for 7 days. Take for symptoms of opiate withdrawal 14 tablet 0 10/27/2022 Active Start: 12-30-2021 End: 01-01-2022 take 1 tablet by mouth twice daily cloNIDine HCl (CATAPRES) 0.1 mg tablet Take 1 tablet by mouth twice daily for 2 days. Take for symptoms of opiate withdrawal until fentanyl prescription due to fill 4 tablet 0 12/30/2021 Active Comment on above: Take 1 tablet by vivien twice daily for 2 days. Take for symptoms of opiate withdrawal until fentanyl prescription due to fill Take 1 tablet by vivien twice daily for 7 days. Take for symptoms of opiate withdrawal DULoxetine 60 mg delayed release oral capsule (16 sources) Serotonin and Norepinephrine Reuptake Inhibitor Start: 01-15-2010 duloxetine hcl(CYMBALTA 60 MG CAP) Take two tablet daily. 0 01/15/2010 Active End: 07-19-2015 take 1 tablet by mouth once daily CYMBALTA CPEP One tablet by mouth daily 600mg DULOXETINE HCL CPEP [id number] [place] End: 07-19-2015 take 1 tablet by mouth once daily CYMBALTA CPEP One tablet by mouth daily 300mg DULOXETINE HCL CPEP [id number] [place] take 1 tablet by vivien th once daily CYMBALTA CPEP One tablet by mouth daily 300mg DULOXETINE HCL CPEP [id number] [place] take 1 tablet by vivien th once daily CYMBALTA CPEP One tablet by mouth daily 600mg DULOXETINE HCL CPEP [id number] Poppy [place] Comment on above: Take two tablet nathaly y. furosemide 40 mg oral tablet (17 sources) Loop Diuretic Start: 03-08-20 15 End: 08-27-19 21 take 1 tablet by mouth once daily Furosemide 40 MG tablet Discontinued 40 mg PO DAILY March 08, 2015 12:00am August 26, 2020 2:02pm gabapentin 300 mg oral capsule (4 sources) Anti-epileptic Agent End: 07-19-19 16 take 1 tablet by mouth twice daily GABAPENTIN 300 MG CAPS One tablet by mouth twice daily GABAPENTIN [id number] [place] hydrOXYzine hydrochloride 25 mg oral tablet (17 sources) Antihistamine Start: 12-04-19 22 take 0.5-3 tablets by mouth once daily hydrOXYzine HCl (ATARAX) 25 mg tablet take 1/2 to 3 tablets by mouth daily if needed 0 12/03/2021 Active Comment on above: take 1/2 to 3 tablet s by mouth daily if needed ipratropium bromide 0.042 mg/actuat metered dose nasal spray (15 sources) Anticholinergic Start: 08-27-19 21 End: 04-25-20 23 Ipratropium [place] 42 mcg (0.06 %) spray,non-aerosol Discontinued 1 NMA INTRANASAL DAILY August 26, 2020 12:00am April 25, 2023 4:49pm Start: 08-26-2020 End: 04-25-2023 Ipratropium [place] Disconti nued 1 SPRAY INTRANASAL DAILY August 26, 2020 12:00am April 25, 2023 4:49pm levocetirizine dihydrochloride 5 mg oral tablet (15 sources) Histamine-1 Receptor Antagonist Start: 08-26-2020 End: 04-25-2023 take 1 tablet by mouth once daily Levocetirizine 5 mg tablet Discontinued 5 mg PO DAILY August 26, 2020 12:00am April 25, 2023 4:48pm LINACLOTIDE (2 sources) Guanylate Cyclase-C Agonist Start: 07-19-2015 LINZESS 145 MCG CAPS daily LINACLOTIDE [id number] [place] meloxicam 7.5 mg oral tablet (20 sources) Nonsteroidal Anti-inflammatory Drug Start: 03-08-2015 End: 04-25-2023 take 1 tablet by mouth twice daily Meloxicam 7.5 MG tablet Discontinued 7.5 mg PO TWICE A DAY March 08, 2015 12:00am April 25, 2023 4:48pm Start: 12-11-2011 take 1 tablet by vivien th once daily meloxicam (MOBIC) 7.5 mg tablet Take 1 tablet by mouth once daily. 0 12/11/2011 Active Comment on above: Take 1 tablet by vivien th once daily. memantine hydrochloride 10 mg oral tablet (3 sources) F-rrtepv-X-aspartat e Receptor Antagonist take 1 tablet by mouth twice daily memantine (NAMENDA) 10 mg tablet Take 10 mg by mouth twice daily. 0 Active Comment on above: Take 10 mg by mouth twice daily. MULTIVITAMIN TAB (20 sources) Start: 010 MULTIVITAMIN TAB Take one(1) tablet daily. 0 01/15/2010 Active Comment on above: Take one(1) tablet d aily. 24 hr nicotine 0.875 mg/hr transdermal system (6 sources) Cholinergic Nicotinic Agonist apply 1 dose transdermal route every twenty-four hours nicotine (NICODERM) 21 mg/24 hr Apply 1 Patch as directed every 24 hours. 0 Active Comment on above: Apply 1 Patch as dir ected every 24 hours. ondansetron 4 mg disintegrating oral tablet (10 sources) Serotonin-3 Receptor Antagonist Start: 023 End: take 1 tablet by mouth every eight hours as needed for nausea Ondansetron 4 mg tablet,disintegrati ng Discontinued 4 mg PO EVERY 8 HOURS NEEDED as needed for Nausea April 25, 2023 1:00am June 24, 2023 2:35pm potassium chloride 10 meq extended release oral capsule (17 sources) Start: POTASSIUM CHLORIDE ER 10 MEQ CR-CAPS 1 twice daily POTASSIUM CHLORIDE [id number] N[place] [place]w [place] Start: 03-08-2015 End: 08-26-2020 take 1 tablet by mouth twice daily Potassium Chloride 10 MEQ tablet Discontinued 10 meq PO TWICE A DAY March 08, 2015 12:00am August 26, 2020 2:36pm rOPINIRole 0.5 mg oral tablet (2 sources) Nonergot Dopamine Agonist Start: 07-19-2015 ROPINIROLE HCL 0.5 MG TABS every night ROPINIROLE HCL [id number] [place] sertraline 50 mg oral tablet (20 sources) Serotonin Reuptake Inhibitor Start: 03-01-2019 End: 04-25-2023 take 1 tablet by mouth once daily Sertraline 50 mg tablet Discontinued 50 mg PO DAILY August 26, 2020 12:00am April 25, 2023 4:48pm Start: 08-18-2017 End: 05-04-2022 sertraline (ZOLOFT) 100 mg t ablet Zoloft 100 mg tablet 0 08/18/2017 05/04/2022 Discontinued Comment on above: Zoloft 100 mg tablet suvorexant 15 mg oral tablet (15 sources) Orexin Receptor Antagonist Start: 7 End: 1 take 1 tablet by mouth at bedtime Suvorexant 15 MG tablet Discontinued 15 mg PO AT BEDTIME January 05, 2017 12:00am August 26, 2020 2:36pm tiZANidine 4 mg oral tablet (20 sources) Central alpha-2 Adrenergic Agonist Start: 9 End: 3 take 1-10 tablets by mouth three times daily as needed for pain Tizanidine 4 mg tablet Discontinued 4 mg PO THREE TIMES A DAY as needed for Pain 1-10 Or Fever August 26, 2020 12:00am April 25, 2023 4:48pm take 1 capsule by [facility] every eight hours as needed tiZANidine HCl 4 mg capsule Take 4 mg by mouth three times daily as needed. 0 Active Comment on above: Take 4 mg by mouth t hree times daily as needed. topiramate 25 mg oral tablet (15 sources) Start: 01-05-2017 End: 08-26-2020 take 2 tablets by mouth at bedtime Topiramate 25 MG tablet Discontinued 50 mg PO AT BEDTIME January 05, 2017 12:00am August 26, 2020 2:36pm Start: 01-05-2017 End: 08-26-2020 take 50 mg by mouth at bedtime Topiramate Discontinued 50 MG PO AT BEDTIME January 05, 2017 12:00am August 26, 2020 2:36pm traMADol hydrochloride 50 mg oral tablet (6 sources) Opioid Agonist Start: 07-19-2015 End: 07-19-2015 TRAMADOL HCL 50 MG TABS TRAMADOL HCL [id number] [place] varenicline 1 mg oral tablet (2 sources) Partial Cholinergic Nicotinic Agonist Start: 07-19-2015 CHANTIX 1 MG TABS 1 twice daily VARENICLINE TARTRATE [id number] [place] Problems Active Problems Problem Classification Problem Date Documented Date Episodic/Chronic Abdominal pain (1 source) Abdominal pain; Translations: [Unspecified abdominal pain] Onset: 10-20-2021 Episodic Alcohol-related disorders (20 sources) Alcohol dependence; Translations: [Alcohol dependence, uncomplicated] 01-15-2010 Chronic Anxiety disorders (16 sources) Anxiety disorder; Translations: [Anxiety disorder, unspecified] Onset: [...] Translations: [Hyperlipidemia, unspecified] Onset: 01-15-2010 01-15-2010 Chronic E Codes: Fall (10 sources) Fall from bed, initial encounter; Translations: [Fall from bed] 04-25-2023 Episodic Essential hypertension (1 source) Essential (primary) hypertension; Translations: [Essential (primary) hypertension] Onset: 04-24-2024 Chronic Fluid and electrolyte disorders (11 sources) Hypo-osmolality and or hyponatremia; Translations: [Hypo-osmolality and [...] disorder] Onset: 01-01-2008 05-25-2016 Chronic Nutritional deficiencies (19 sources) Vitamin D deficiency; Translations: [Vitamin D deficiency, unspecified] 03-01-2019 Chronic Osteoarthritis (20 sources) Osteoarthritis of knee; Translations: [Degenerative joint disease involving multiple joints] Onset: 01-01-2008 04-04-2015 Chronic Other bone disease and musculoskeletal deformities (2 sources) Osteochondritis dissecans; 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, right knee] Onset: 04-10-2015 04-24-2015 Chronic Other circulatory disease (1 source) Elevated blood-pressure reading, without diagnosis of hypertension; Translations: [Elevated blood-pressure reading, without diagnosis of hypertension] Onset: 09-07-2024 Episodic Other connective tissue disease (4 sources) Fibromyositis [...] extrapyramidal and movement disorders] 03-13-2010 Chronic Other injuries and conditions due to external causes (10 sources) Closed injury of head; Translations: [Unspecified injury of head, initial encounter] 04-25-2023 Episodic Other lower respiratory disease (1 source) Chronic cough; Translations: [Chronic cough] Onset: 09-26-2024 Episodic Other nervous system disorders (2 sources) Carpal tunnel syndrome, unspecified upper limb; Translations: [Carpal tunnel syndrome, unspecified upper limb] Onset: 02-03-2011 02-04-2011 Chronic Other nervous system disorders (20 sources) Chronic pain; Translations: [Other chronic pain] Onset: 01-14-2009 05-12-2021 Chronic Other nervous system disorders (1 source) Other chronic pain; Translations: [Chronic knee pain, unspecified laterality] Onset: 11-26-2021 Chronic Other screening for suspected conditions (not mental disorders or infectious disease) (2 sources) Encounter for screening for malignant neoplasm of respiratory organs; Translations: [Encounter for screening mammogram for malignant neoplasm of breast] Onset: 02-29-2024 Episodic Residual codes; unclassified (20 sources) Sleep apnea; Translations: [Sleep apnea, unspecified] Onset: 12-28-2007 01-15-2010 Chronic Residual codes; unclassified (4 sources) Chronic pain 03-01-2019 Episodic Residual codes; unclassified (4 sources) Tobacco user 03-01-2019 Episodic Residual codes; unclassified (15 sources) History of colonoscopy; Translations: [Other specified postprocedural states] 08-26-2020 Episodic Comment on above: 02/10/2017 Screening and history of mental health and substance abuse codes (20 sources) Tobacco use and exposure - finding; Translations: [Personal history of nicotine dependence] Onset: 05-19-2007 03-13-2010 Episodic Spondylosis; intervertebral disc disorders; other back problems (20 sources) Degeneration of cervical intervertebral disc; Translations: [Other cervical disc degeneration, unspecified cervical region] Onset: 08-18-2017 Chronic Spondylosis; intervertebral disc disorders; other back problems (10 sources) Neck pain; Translations: [Low back pain] Onset: 02-03-2011 02-04-2011 Episodic Sprains and strains (10 sources) Strain of neck muscle; Translations: [Strain of muscle, fascia and tendon at neck level, initial encounter] 04-25-2023 Episodic Substance-related disorders (20 sources) Nondependent mixed drug abuse; Translations: [Other psychoactive substance abuse, uncomplicated] Onset: 01-15-2010 01-15-2010 Chronic Superficial injury; contusion (10 sources) Contusion of right shoulder; Translations: [Contusion of right shoulder, initial encounter] 04-25-2023 Episodic Thyroid disorders (5 sources) Hypothyroidism; Translations: [Hypothyroidism, unspecified] Onset: 12-25-2021 03-01-2019 Chronic Past or Other Problems Problem Classification Problem Date Documented Da te Episodic/Chronic Joint disorders and dislocations; trauma-related (2 sources) Acute meniscal tear, medial; Translations: [Other tear of medial meniscus, current injury, unspecified knee, initial encounter] Onset: 04-03-2015 04-03-2015 Episodic Malaise and fatigue (1 source) Other fatigue; Translations: [Other fatigue] Onset: 10-27-2023 Episodic Other aftercare (18 sources) Long-term current use of drug therapy; Translations: [Other long-term (current) drug therapy] Onset: 11-21-2018 11-26-2021 Episodic Other aftercare (1 source) Other rodent exterminator (current) drug therapy; Translations: [Other rodent exterminator (current) drug therapy] Onset: 11-26-2021 Episodic Other connective tissue disease (20 sources) Fibromyalgia; Translations: [Fibromyalgia] Onset: 08-18-2017 11-26-2021 Episodic Other connective tissue disease (1 source) Fibromyalgia; Translations: [Fibromyalgia] Onset: 11-26-2021 Episodic Other gastrointestinal disorders (4 sources) Constipation; Translations: [Imaging of abdomen abnormal] Onset: 01-11-2017 01-11-2017 Episodic Other gastrointestinal disorders (1 source) Dysphagia, unspecified; Translations: [Dysphagia, unspecified] Onset: 12-02-2023 Episodic Other non-traumatic joint disorders (2 sources) [...] [Sleep disorder, unspecified] Onset: 12-28-2007 03-13-2010 Episodic Results Test Name Value Interpretation Reference Range Facility Low Dose CT Lung Screeningon 09-29-[address] Lung Screening [facility] Imaging Services [address] [place], [place] [address] Low Dose CT Lung Screening MR#: [id number] Acct: [id number] Name: NAVIN AUGUST I Rep #: [id number] : 1960 F 64 From: Jak Mcknight MD PCP: Dr. Jaswinder Muñiz MD Status: [facility] Study: Low Dose CT Lung Screening Date of Exam: 09/29 Exam# [id number] Ordering Dr: Jaswinder Muñiz MD EXAM: CT Chest, Lung Cancer Screening Without Intravenous Contrast CLINICAL INDICATION: SCREENING CT LUNGS TECHNIQUE: Axial computed tomography images of the chest without intravenous contrast using low dose (LDCT) lung cancer screening protocol. This CT exam was performed using one or more of the following dose reduction techniques: automated exposure control, adjustment of the mA and/or kV according to patient size, and/or use of iterative reconstruction technique. COMPARISON: CT Lung Cancer Screening dated 06/24/2020 FINDINGS: LUNGS AND PLEURAL SPACES: Lung emphysema/COPD. Stable 2 mm nodule of the right upper lobe. Lingular atelectasis or scarring. No pneumothorax. No significant effusion. No new suspicious pulmonary nodules. HEART: Unremarkable. No cardiomegaly. No significant pericardial effusion. No significant coronary artery calcifications. BONES/JOINTS: Unremarkable. No acute fracture. No dislocation. SOFT TISSUES: Unremarkable. VASCULATURE: Unremarkable. No thoracic aortic aneurysm. LYMPH NODES: Unremarkable. No enlarged lymph nodes. CT/Low Dose CT Lung Screening IMPRESSION: 1. No new suspicious pulmonary nodules. 2. LUNG-RADS 2: Benign. Continue low-dose CT screening of the chest in 12 months is recommended. Reading Location: [id number] CC: Dr. Jaswinder Muñiz MD Medical Device Sales Consultant: Signed Normal [facility] Absolute lymphocyte countOrd ered By: Jaswinder Muñiz on 09-04-2024 Lymphocytes Auto (Unsp spec) [#/Vol] 1.94 10*3/uL 0.83-4.51 [facility] Absolute neutrophil countOrd ered By: Jaswinder Muñiz on 09-04-2024 Neutrophils (Bld) [#/Vol] 4.3 10*3/uL 2.0-7.7 [facility] Anion gap in Serum or Plasma Ordered By: Jaswinder Muñiz on 09-04-2024 Anion gap [Moles/Vol] 12 mmol/L 5-15 [facility] Automated lymphocyte count a s percentage of total leukocytesOrdered By: Jaswinder Muñiz on 09-04-2024 Lymphocytes/100 WBC Auto (Unsp spec) 27.6 % 19- [facility] BUN/creatinine ratioOrdered By: Jaswinder Muñiz on 09-04-2024 Urea nitrogen/Creatinine [Mass ratio] 10.4 mg/mg 10-20 [facility] Basophil percentageOrdered B y: Jaswinder Muñiz on 09-04-2024 Basophils/100 WBC (Bld) 1.1 % High 0-1 [facility] Bilirubin, totalOrdered By: Jaswinder Muñiz on 09-04-2024 Bilirubin [Mass/Vol] mg/dL 0.00-1.30 [facility] CBC W/Diff, Automatedon 08-16 Absolute Lymph 1.94 X10 3/uL Normal 0.83-4.51 [facility] Comment on above: Order Comment: Order Date: 09/04/24 Order Info: [id number] - CBCD Performed By: #### L 100.0100, L501.9520, L500.4100, L500.4050 #### [facility] [place], [address] Absolute Neut 4.3 X10 3/uL Normal 2.0-7.7 [facility] Comment on above: Order Comment: Order Date: 09/04/24 Order Info: 0184-1 - CBCD Performed By: #### L 100.0100, L501.9520, L500.4100, L500.4050 #### [facility] [address] [place], [address] Basophils/100 WBC (Bld) 1.1 % High 0-1 [facility] Comment on above: Order Comment: Order Date: 09/04/24 Order Info: 0184-1 - CBCD Performed By: #### L 100.0100, L501.9520, L500.4100, L500.4050 #### [facility] [address] [place], [address] Eosinophils/100 WBC (Bld) 2.3 % Normal 0-5 [facility] Comment on above: Order Comment: Order Date: 09/04/24 Order Info: 018- - CBCD Performed By: #### L 100.0100, L501.9520, L500.4100, L500.4050 #### [facility] [address] [place], [address] Erythrocyte distribution width (RBC) [Ratio] 12.6 % Normal 11.6-14.6 [facility] Comment on above: Order Comment: Order Date: 09/04/24 Order Info: 018- - CBCD Performed By: #### L 100.0100, L501.9520, L500.4100, L500.4050 #### [facility] [address] [place], [address] Hematocrit (Bld) [Volume fraction] 38.4 % Normal 37-47 [facility] Comment on above: Order Comment: Order Date: 09/04/24 Order Info: 0184-1 - CBCD Performed By: #### L 100.0100, L501.9520, L500.4100, L500.4050 #### [facility] [address] [place], [address] Hemoglobin (Bld) [Mass/Vol] 13.2 g/dL Normal 12.0-15.0 [facility] Comment on above: Order Comment: Order Date: 09/04/24 Order Info: 0184-1 - CBCD Performed By: #### L 100.0100, L501.9520, L500.4100, L500.4050 #### [facility] [address] [place], [address] IG% 0.300 Normal 0.0-0.9 [facility] Comment on above: Order Comment: Order Date: 09/04/24 Order Info: 0184- - CBCD Result Comment: IG% - Immature Granulocytes (promyelocytes, myelocytes and metamyelocytes) > 1% indicates that a LEFT SHIFT is Present. Performed By: #### L 100.0100, L501.9520, L500.4100, L500.4050 #### [facility] [address] [place], [address] Lymphocytes/100 WBC (Bld) 27.6 % Normal 19-41 [facility] Comment on above: Order Comment: Order Date: 09/04/24 Order Info: 0184- - CBCD Performed By: #### L 100.0100, L501.9520, L500.4100, L500.4050 #### [facility] [address] [place], [address] MCH (RBC) [Entitic mass] 32.9 pg High 27.0-32.0 [facility] Comment on above: Order Comment: Order Date: 09/04/24 Order Info: [id number] - CBCD Performed By: #### L 100.0100, L501.9520, L500.4100, L500.4050 #### [facility] [address] [place], [address] MCHC (RBC) [Mass/Vol] 34.4 g/dL Normal 32-36 [facility] Comment on above: Order Comment: Order Date: 09/04/24 Order Info: 0184-1 - CBCD Performed By: #### L 100.0100, L501.9520, L500.4100, L500.4050 #### [facility] [address] [place], [address] MCV (RBC) [Entitic vol] 95.8 fL Normal 81-99 [facility] Comment on above: Order Comment: Order Date: 09/04/24 Order Info: 0184-1 - CBCD Performed By: #### L 100.0100, L501.9520, L500.4100, L500.4050 #### [facility] [address] [place], [address] Monocytes/100 WBC (Bld) 7.3 % Normal 0-10 [facility] Comment on above: Order Comment: Order Date: 09/04/24 Order Info: 0184-1 - CBCD Performed By: #### L 100.0100, L501.9520, L500.4100, L500.4050 #### [facility] [address] [place], [address] Neutrophils/100 WBC (Bld) 61.4 % Normal 47-70 [facility] Comment on above: Order Comment: Order Date: 09/04/24 Order Info: 0184-1 - CBCD Performed By: #### L 100.0100, L501.9520, L500.4100, L500.4050 #### [facility] [address] [place], [address] Nucleated RBC (Bld) [#/Vol] 0 10*3/uL Normal 0-5 [facility] Comment on above: Order Comment: Order Date: 09/04/24 Order Info: 0184-1 - CBCD Performed By: #### L 100.0100, L501.9520, L500.4100, L500.4050 #### [facility] [address] [place], [address] Platelet mean volume (Bld) [Entitic vol] 9.2 fL Normal 6.2-12.0 [facility] Comment on above: Order Comment: Order Date: 09/04/24 Order Info: 0184-1 - CBCD Performed By: #### L 100.0100, L501.9520, L500.4100, L500.4050 #### [facility] [address] [place], [address] Platelets (Bld) [#/Vol] 510 10*3/uL High 150-450 [facility] Comment on above: Order Comment: Order Date: 09/04/24 Order Info: 0184-1 - CBCD Performed By: #### L 100.0100, L501.9520, L500.4100, L500.4050 #### [facility] [address] [place], [address] RBC (Bld) [#/Vol] 4.01 10*6/uL Low 4.2-5.4 [facility] Comment on above: Order Comment: Order Date: 09/04/24 Order Info: 0184-1 - CBCD Performed By: #### L 100.0100, L501.9520, L500.4100, L500.4050 #### [facility] [address] [place], [address] RDW SD 44.5 fl High 35.1-43.9 [facility] Comment on above: Order Comment: Order Date: 09/04/24 Order Info: 0184-1 - CBCD Performed By: #### L 100.0100, L501.9520, L500.4100, L500.4050 #### [facility] [address] [place], [address] WBC (Bld) [#/Vol] 7.0 10*3/uL Normal 4.4-11.0 [facility] Comment on above: Order Comment: Order Date: 09/04/24 Order Info: 0184-1 - CBCD Performed By: #### L 100.0100, L501.9520, L500.4100, L500.4050 #### [facility] [address] [place], [place], [address] Calculated very low density lipoprotein (VLDL) cholesterol measurementOrdered By: Jaswinder Muñiz on 09-04-2024 Calculated very low density lipoprotein (VLDL) cholesterol measurement 26 mg/dL 5-40 [facility] Carbon dioxide, total [Moles /volume] in Central venous bloodOrdered By: Jaswinder Muñiz on 09-04-2024 CO2 [Moles/Vol] 24.0 mmol/L 21.0-32.0 [facility] Chloride assayOrdered By: Stacie Muñiz on 09-04-2024 Chloride [Moles/Vol] 100 mmol/L 98-108 [facility] Comprehensive Metabolic Prof ilon 09-04-2024 Albumin [Mass/Vol] 4.5 g/dL Normal 3.4-4.8 [facility] Comment on above: Order Comment: Order Date: 09/04/24 Order Info: [id number] - CMP Order Info: [id number] - LIPID Order Info: [id number] - TSH Performed By: #### L 100.0100, L501.9520, L500.4100, L500.4050 #### [facility] [address] [place], [address] Albumin/Globulin [Mass ratio] 1.7 {ratio} Normal 0.9-2.4 [facility] Comment on above: Order Comment: Order Date: 09/04/24 Order Info: [id number] - CMP Order Info: [id number] - LIPID Order Info: [id number] - TSH Performed By: #### L 100.0100, L501.9520, L500.4100, L500.4050 #### [facility] [address] [place], [address] ALK PHOS 136 U/L High 35-104 [facility] Comment on above: Order Comment: Order Date: 09/04/24 Order Info: [id number] - CMP Order Info: - LIPID Order Info: 3 - TSH Performed By: #### L 100.0100, L501.9520, L500.4100, L500.4050 #### [facility] [address] [place], [address] ALT [Catalytic activity/Vol] 17 U/L Normal <=34 [facility] Comment on above: Order Comment: Order Date: 09/04/24 Order Info: 785- - CMP Order Info: - LIPID Order Info: 3 - TSH Performed By: #### L 100.0100, L501.9520, L500.4100, L500.4050 #### [facility] [address] [place], [address] AST [Catalytic activity/Vol] 23 U/L Normal <=31 [facility] Comment on above: Order Comment: Order Date: 09/04/24 Order Info: 07 - CMP Order Info: - LIPID Order Info: [id number] - TSH Performed By: #### L 100.0100, L501.9520, L500.4100, L500.4050 #### [facility] [address] [place], [address] BUN/CRE 10.4 RATIO Normal 10-20 [facility] Comment on above: Order Comment: Order Date: 09/04/24 Order Info: [id number] - CMP Order Info: - LIPID Order Info: [id number] - TSH Performed By: #### L 100.0100, L501.9520, L500.4100, L500.4050 #### [facility] [address] [place], [address] Calcium [Mass/Vol] 9.5 mg/dL Normal 7.6-11.0 [facility] Comment on above: Order Comment: Order Date: 09/04/24 Order Info: [id number] - CMP Order Info: - LIPID Order Info: 3 - TSH Performed By: #### L 100.0100, L501.9520, L500.4100, L500.4050 #### [facility] [address] [place], [address] Chloride [Moles/Vol] 100 mmol/L Normal 98-108 [facility] Comment on above: Order Comment: Order Date: 09/04/24 Order Info: 785- - CMP Order Info: - LIPID Order Info: 3 - TSH Performed By: #### L 100.0100, L501.9520, L500.4100, L500.4050 #### [facility] [address] [facility] [place], [address] CO2 [Moles/Vol] 24.0 mmol/L Normal 21.0-32.0 [facility] Comment on above: Order Comment: Order Date: 09/04/24 Order Info: 785- - CMP Order Info: - LIPID Order Info: [id number] - TSH Performed By: #### L 100.0100, L501.9520, L500.4100, L500.4050 #### [facility] [address] [facility] [place], [address] Creatinine [Mass/Vol] 0.97 mg/dL Normal 0.70-1.20 [facility] Comment on above: Order Comment: Order Date: 09/04/24 Order Info: 785- - CMP Order Info: [id number] - LIPID Order Info: 3 - TSH Performed By: #### L 100.0100, L501.9520, L500.4100, L500.4050 #### [facility] [address] [facility] [place], [address] GAP 12 Normal 5-15 [facility] Comment on above: Order Comment: Order Date: 09/04/24 Order Info: [id number] - CMP Order Info: - LIPID Order Info: 3 - TSH Performed By: #### L 100.0100, L501.9520, L500.4100, L500.4050 #### [facility] [address] [place], [address] GFR/1.73 sq M.predicted among non-blacks MDRD (S/P/Bld) [Vol rate/Area] 65 mL/min/{1.73_m2} Normal >60 [facility] Comment on above: Order Comment: Order Date: 09/04/24 Order Info: [id number] - CMP Order Info: [id number] - LIPID Order Info: [id number] - TSH Result Comment: mL/m in/1.73m2 CKD-EPI Creatinine Equation (2020) Performed By: #### L 100.0100, L501.9520, L500.4100, L500.4050 #### [facility] [address] [place], [address] Globulin (S) [Mass/Vol] 2.7 g/dL Normal 2.2-4.2 [facility] Comment on above: Order Comment: Order Date: 09/04/24 Order Info: [id number] - CMP Order Info: [id number] - LIPID Order Info: [id number] - TSH Performed By: #### L 100.0100, L501.9520, L500.4100, L500.4050 #### [facility] [address] [place], [address] Glucose [Mass/Vol] 114 mg/dL High 70-99 [facility] Comment on above: Order Comment: Order Date: 09/04/24 Order Info: 071 - CMP Order Info: [id number] - LIPID Order Info: [id number] - TSH Performed By: #### L 100.0100, L501.9520, L500.4100, L500.4050 #### [facility] [address] [place], [address] Potassium [Moles/Vol] 3.9 mmol/L Normal 3.3-5.1 [facility] Comment on above: Order Comment: Order Date: 09/04/24 Order Info: [id number] - CMP Order Info: [id number] - LIPID Order Info: [id number] - TSH Performed By: #### L 100.0100, L501.9520, L500.4100, L500.4050 #### [facility] [address] [place], [address] Sodium [Moles/Vol] 136 mmol/L Normal 133-145 [facility] Comment on above: Order Comment: Order Date: 09/04/24 Order Info: 07- - CMP Order Info: - LIPID Order Info: 3 - TSH Performed By: #### L 100.0100, L501.9520, L500.4100, L500.4050 #### [facility] [address] [place], [address] T BILI < 0.15 Normal 0.00-1.30 [facility] Comment on above: Order Comment: Order Date: 09/04/24 Order Info: [id number] - CMP Order Info: [id number] - LIPID Order Info: 3 - TSH Performed By: #### L 100.0100, L501.9520, L500.4100, L500.4050 #### [facility] [address] [place], [address] T PROT 7.2 g/dL Normal 5.9-8.4 [facility] Comment on above: Order Comment: Order Date: 09/04/24 Order Info: [id number]- - CMP Order Info: [id number] - LIPID Order Info: [id number] - TSH Performed By: #### L 100.0100, L501.9520, L500.4100, L500.4050 #### [facility] [address] [place], [address] Urea nitrogen [Mass/Vol] 10 mg/dL Normal 4-19 [facility] Comment on above: Order Comment: Order Date: 09/04/24 Order Info: [id number] - CMP Order Info: [id number] - LIPID Order Info: [id number] - TSH Performed By: #### L 100.0100, L501.9520, L500.4100, L500.4050 #### [facility] [address] [place], [address] Eosinophil percentageOrdered By: Jaswinder Muñiz on 09-04-2024 Eosinophils/100 WBC (Bld) 2.3 % 0-5 [facility] Erythrocyte distribution wid th ratioOrdered By: [facility] on 09-04-2024 Erythrocyte distribution width (RBC) [Ratio] 12.6 % 11.6-14.6 [facility] Erythrocyte distribution wid th standard deviationOrdered By: Jaswinder Antonino on 09-04-2024 Erythrocyte distribution width (RBC) [Ratio] 44.5 fl High 35.1-43.9 [facility] Glomerular filtration rate ( GFR) estimation/1.73 sq m using serum, plasma, or whole bOrdered By: Jaswinder Muñiz on 09-04-2024 GFR/1.73 sq M.predicted among non-blacks MDRD (S/P/Bld) [Vol rate/Area] 65 mL/min/{1.73_m2} >60 [facility] Comment on above: mL/min/1.73m2 CKD-EP I Creatinine Equation (2020) Hematocrit Auto (Bld) [Volum e fraction]Ordered By: Jaswinder Muñiz on 09-04-2024 Hematocrit (Bld) [Volume fraction] 38.4 % 37-47 [facility] Hemoglobin measurementOrdere d By: Jaswinder Muñiz on 09-04-2024 Hemoglobin (Bld) [Mass/Vol] 13.2 g/dL 12.0-15.0 [facility] Immature granulocytes/100 WB C Auto (Bld)Ordered By: Jaswinder Muñiz on 09-04-2024 Immature granulocytes/100 WBC (Bld) 0.300 % 0.0-0.9 [facility] Comment on above: IG% - Immature Granu locytes (promyelocytes, myelocytes and metamyelocytes) > 1% indicates that a LEFT SHIFT is Present. LDL calc ser/plasOrdered By: Jaswinder Muñiz on 09-04-2024 Cholesterol in LDL [Mass/Vol] 168 mg/dL [facility] [facility] Comment on above: Vsahodnzfx=486-797 m g/dL & Higher Tjoc=937 mg/dL or greater Laboratory - Chemistry and C hemistry - challengeOrdered By: Jaswinder Muñiz on 09-04-2024 AST [Catalytic activity/Vol] 23 U/L <32 [facility] Lipid Profileon 09-04-2024 CHOL:HDL 5.[address] [facility] Comment on above: Order Comment: Order Date: 09/04/24 Order Info: [id number] - CMP Order Info: [id number] - LIPID Order Info: [id number] - TSH Performed By: #### L 100.0100, L501.9520, L500.4100, L500.4050 #### [facility] [address] [place], [address] Cholesterol [Mass/Vol] 241 mg/dL High <=200 [facility] Comment on above: Order Comment: Order Date: 09/04/24 Order Info: [id number] - CMP Order Info: [id number] - LIPID Order Info: [id number] - TSH Result Comment: Chol esterol level, Desirable <200 mg/dL Borderline high cholesterol 200-239 mg/dL High cholesterol >=240 mg/dL Recommendations of the NCEP Adult Treatment Panel for the following risk-cutoff thresholds for the [place] population. Performed By: #### L 100.0100, L501.9520, L500.4100, L500.4050 #### [facility] [address] [place], [address] Cholesterol in HDL [Mass/Vol] 47 mg/dL Normal [facility] Comment on above: Order Comment: Order Date: 09/04/24 Order Info: [id number] - CMP Order Info: [id number] - LIPID Order Info: [id number] - TSH Result Comment: Cassandra onal Cholesterol Education Program (NCEP) guidelines: <40 mg/dL: Low HDL-cholesterol (major risk factor for CHD) >= 60 mg/dL: High HDL-cholesterol (negative risk factor for CHD) HDL-cholesterol is affected by a number of factors, e.g. smoking, exercise, hormones, sex and age. Performed By: #### L 100.0100, L501.9520, L500.4100, L500.4050 #### [facility] [address] [place], [address] Cholesterol in LDL [Mass/Vol] 168 mg/dL Normal [facility] Comment on above: Order Comment: Order Date: 09/04/24 Order Info: [id number] - CMP Order Info: [id number] - LIPID Order Info: [id number] - TSH Result Comment: Bord kxbkel=331-133 mg/dL Higher Drbm=985 mg/dL or greater Performed By: #### L 100.0100, L501.9520, L500.4100, L500.4050 #### [facility] [address] [facility] [place], [address] Cholesterol in VLDL [Mass/Vol] 26 mg/dL Normal 5-40 [facility] Comment on above: Order Comment: Order Date: 09/04/24 Order Info: [id number] - CMP Order Info: - LIPID Order Info: 3 - TSH Performed By: #### L 100.0100, L501.9520, L500.4100, L500.4050 #### [facility] [address] [place], [address] Triglyceride [Mass/Vol] 131 mg/dL Normal [facility] Comment on above: Order Comment: Order Date: 09/04/24 Order Info: [id number] - CMP Order Info: [id number] - LIPID Order Info: 3 - TSH Result Comment: The drugs N-Acetylcysteine and Metamizole may falsely depress this assay. Normal range: <150 mg/dL Borderline High: 150-199 mg/dL High: 200-499 mg/dL Very High: >500 mg/dL Performed By: #### L 100.0100, L501.9520, L500.4100, L500.4050 #### [facility] [address] [place], [address] MCV (mean corpuscular volume ) determinationOrdered By: Jaswinder Muñiz on 09-04-2024 MCV (RBC) [Entitic vol] 95.8 fL 81-99 [facility] Mean corpuscular hemoglobin (MCH) determinationOrdered By: Jaswinder Muñiz on 09-04-2024 MCH (RBC) [Entitic mass] 32.9 pg High 27.0-32.0 [facility] Mean corpuscular hemoglobin concentration (MCHC) determinationOrdered By: Jaswinder Muñiz on 09-04-2024 MCHC (RBC) [Mass/Vol] 34.4 g/dL 32-36 [facility] Mean platelet volume determi nationOrdered By: Jaswinder Muñiz on 09-04-2024 Platelet mean volume (Bld) [Entitic vol] 9.2 fL 6.2-12.0 [facility] Monocyte percentageOrdered B y: Jaswinder Muñiz on 09-04-2024 Monocytes/100 WBC (Bld) 7.3 % 0-10 [facility] Neutrophil percentageOrdered By: Jaswinder Muñiz on 09-04-2024 Neutrophils/100 WBC (Bld) 61.4 % 47-70 [facility] Nucleated red blood cell per centageOrdered By: Jaswinder Muñiz on 09-04-2024 Nucleated RBC/100 WBC (Bld) [Ratio] 0 % 0-5 [facility] Platelet countOrdered By: Stacie Muñiz on 09-04-2024 Platelets (Bld) [#/Vol] 510 10*3/uL High 150-450 [facility] Potassium measurement (mass/ volume)Ordered By: Jaswinder Muñiz on 09-04-2024 Potassium (Unsp spec) [Mass/Vol] 3.9 mmol/L 3.3-5.1 [facility] RBC Auto (Bld) [#/Vol]Ordere d By: Jaswinder Muñiz on 09-04-2024 RBC (Bld) [#/Vol] 4.01 10*6/uL Low 4.2-5.4 [facility] Screening total cholesterol/ high density lipoprotein (HDL) cholesterol ratioOrdered By: Jaswinder Muñiz on 09-04-2024 Cholesterol.total/Rhonda sterol in HDL [Mass ratio] 5.15 {ratio} [facility] Serum creatinine measurement (mass/volume)Ordered By: Jaswinder Muñiz on 09-04-2024 Creatinine [Mass/Vol] 0.97 mg/dL 0.70-1.20 [facility] Serum globulin measurementOr dered By: Jaswinder Muñiz on 09-04-2024 Globulin (S) [Mass/Vol] 2.7 g/dL 2.2-4.2 [facility] Serum glucose measurement (m ass/volume)Ordered By: Jaswinder Muñiz on 09-04-2024 Glucose [Mass/Vol] 114 mg/dL High 70-99 [facility] Serum or plasma alanine huggins otransferase (ALT) measurementOrdered By: Jaswinder Muñiz on 09-04-2024 ALT [Catalytic activity/Vol] 17 U/L <35 [facility] Serum or plasma albumin chace urement (mass/volume)Ordered By: Jaswinder Muñiz on 09-04-2024 Albumin [Mass/Vol] 4.5 g/dL 3.4-4.8 [facility] Serum or plasma albumin/glob ulin mass ratioOrdered By: Jaswinder Muñiz on 09-04-2024 Albumin/Globulin [Mass ratio] 1.7 {ratio} 0.9-2.4 [facility] Serum or plasma alkaline venice sphatase measurementOrdered By: Jaswinder Muñiz on 09-04-2024 ALP [Catalytic activity/Vol] 136 U/L High 35-104 [facility] Serum or plasma calcium chace urement (mass/volume)Ordered By: Jaswinder Muñiz on 09-04-2024 Calcium [Mass/Vol] 9.5 mg/dL 7.6-11.0 [facility] Serum or plasma cholesterol in HDL measurement (mass/volume)Ordered By: Jaswinder Muñiz on 09-04-2024 Cholesterol in HDL [Mass/Vol] 47 mg/dL >40 [facility] Comment on above: National Cholesterol Education Program (NCEP) guidelines:<40 mg/dL: Low HDL-cholesterol (major risk factor for CHD)>= 60 mg/dL: High HDL-cholesterol (negative risk factor for CHD)HDL-cholesterol is affected by a number of factors, e.g. smoking, exercise, hormones, sex and age. Serum or plasma cholesterol measurement (mass/volume)Ordered By: Jaswinder Muñiz on 09-04-2024 Cholesterol [Mass/Vol] 241 mg/dL High <201 [facility] Comment on above: Cholesterol level, D esirable <200 mg/dLBorderline high cholesterol 200-239 mg/dLHigh cholesterol >=240 mg/dLRecommendations of the NCEP Adult Treatment Panel for the following risk-cutoff thresholds for the [place] population. Serum or plasma urea nitroge n measurement (mass/volume)Ordered By: Jaswinder Muñiz on 09-04-2024 Urea nitrogen [Mass/Vol] 10 mg/dL 4-19 [facility] Sodium levelOrdered By: Jah Muñiz on 09-04-2024 Sodium [Moles/Vol] 136 mmol/L 133-145 [facility] TSH DL <= 0.005 mIU/L QnOrde red By: Jaswinder Muñiz on 09-04-2024 TSH Qn 2.070 uIU/mL 0.300-4.[address] [facility] Thyroid Stim Hormone (TSH)on 09-04-2024 TSH 2.070 uIU/mL Normal 0.300-4.[address] [facility] Comment on above: Order Comment: Order Date: 09/04/24 Order Info: [id number] - CMP Order Info: [id number] - LIPID Order Info: [id number] - TSH Performed By: #### L 100.0100, L501.9520, L500.4100, L500.4050 #### [facility] [address] [place], [address] Total proteinOrdered By: Aury Muñiz on 09-04-2024 Protein [Mass/Vol] 7.2 g/dL 5.9-8.4 [facility] Triglycerides measurementOrd ered By: Jaswinder Muñiz on 09-04-2024 Triglyceride [Mass/Vol] 131 mg/dL <199 [facility] Comment on above: The drugs N-Acetylcy steine and Metamizole may falsely depress this assay. Normal range: <150 mg/dLBorderline High: 150-199 mg/dLHigh: 200-499 mg/dLVery High: >500 mg/dL Vitamin D,25 Hydroxyon 09-04 Vitamin D 25-OH 22.5 ng/mL Low 30-100 [facility] Comment on above: Order Comment: Order Date: 09/04/24Order Info: [id number] - CMPOrder Info: [id number] - LIPIDOrder Info: [id number] - TSH Result Comment: Shelbi min D Status Deficiency: <20 ng/mL (50nmol/L) Insufficiency: 20-30 ng/mL (50-75 nmol/L) Sufficiency: 30-100 ng/mL (75-250 nmol/L) Toxicity: >100 ng/mL (>250 nmol/L) Performed By: #### L 501.9520, L506.1000, L500.4050, L500.4100, L100.0100 #### [facility] [place], [address] White blood cell (WBC) count Ordered By: Jaswinder Muñiz on 09-04-2024 WBC (Bld) [#/Vol] 7.0 10*3/uL 4.4-11.0 [facility] Absolute lymphocyte countOrd ered By: Yobany Snell on 07-18-2024 Lymphocytes Auto (Unsp spec) [#/Vol] 2.07 10*3/uL 0.83-4.51 [facility] Absolute neutrophil countOrd ered By: Yobany Snell on 07-18-2024 Neutrophils (Bld) [#/Vol] 5.4 10*3/uL 2.0-7.7 [facility] Anion gap in Serum or Plasma Ordered By: Yobany Snell on 07-18-2024 Anion gap [Moles/Vol] 14 mmol/L 5-15 [facility] Automated lymphocyte count a s percentage of total leukocytesOrdered By: Yobany Snell on 07-18-2024 Lymphocytes/100 WBC Auto (Unsp spec) 24.8 % 19-41 [facility] BUN/creatinine ratioOrdered By: Yobany Snell on 07-18-2024 Urea nitrogen/Creatinine [Mass ratio] 10.1 mg/mg 10-20 [facility] Basophil percentageOrdered B y: Yobany Snell on 07-18-2024 Basophils/100 WBC (Bld) 1.4 % High 0-1 [facility] Bilirubin, totalOrdered By: Yobany Snell on 07-18-2024 Bilirubin [Mass/Vol] 0.33 mg/dL 0.00-1.30 [facility] CBC W/Diff, Automatedon Absolute Lymph 2.07 X10 3/uL Normal 0.83-4.51 [facility] Comment on above: Performed By: #### L 501.9520, L506.1000, L500.4050, L500.4100, L100.0100 #### [facility] [address] [place], [address] Absolute Neut 5.4 X10 3/uL Normal 2.0-7.7 [facility] Comment on above: Performed By: #### L 501.9520, L506.1000, L500.4050, L500.4100, L100.0100 #### [facility] [address] [place], [address] Basophils/100 WBC (Bld) 1.4 % High 0-1 [facility] Comment on above: Performed By: #### L 501.9520, L506.1000, L500.4050, L500.4100, L100.0100 #### [facility] [address] [place], [address] Eosinophils/100 WBC (Bld) 1.6 % Normal 0-5 [facility] Comment on above: Performed By: #### L 501.9520, L506.1000, L500.4050, L500.4100, L100.0100 #### [facility] [address] [place], [address] Erythrocyte distribution width (RBC) [Ratio] 12.6 % Normal 11.6-14.6 [facility] Comment on above: Performed By: #### L 501.9520, L506.1000, L500.4050, L500.4100, L100.0100 #### [facility] [address] [place], [address] Hematocrit (Bld) [Volume fraction] 41.6 % Normal 37-47 [facility] Comment on above: Performed By: #### L 501.9520, L506.1000, L500.4050, L500.4100, L100.0100 #### [facility] [address] [place], [address] Hemoglobin (Bld) [Mass/Vol] 14.3 g/dL Normal 12.0-15.0 [facility] Comment on above: Performed By: #### L 501.9520, L506.1000, L500.4050, L500.4100, L100.0100 #### [facility] [address] [place], [address] IG% 0.400 Normal 0.0-0.9 [facility] Comment on above: Result Comment: IG% - Immature Granulocytes (promyelocytes, myelocytes and metamyelocytes) > 1% indicates that a LEFT SHIFT is Present. Performed By: #### L 501.9520, L506.1000, L500.4050, L500.4100, L100.0100 #### [facility] [address] [place], [address] Lymphocytes/100 WBC (Bld) 24.8 % Normal 19-41 [facility] Comment on above: Performed By: #### L 501.9520, L506.1000, L500.4050, L500.4100, L100.0100 #### [facility] [address] [place], [address] MCH (RBC) [Entitic mass] 33.0 pg High 27.0-32.0 [facility] Comment on above: Performed By: #### L 501.9520, L506.1000, L500.4050, L500.4100, L100.0100 #### [facility] [address], [address] MCHC (RBC) [Mass/Vol] 34.4 g/dL Normal 32-36 [facility] Comment on above: Performed By: #### L 501.9520, L506.1000, L500.4050, L500.4100, L100.0100 #### [facility] [address] [place], [address] MCV (RBC) [Entitic vol] 96.1 fL Normal 81-99 [facility] Comment on above: Performed By: #### L 501.9520, L506.1000, L500.4050, L500.4100, L100.0100 #### [facility] [address] [place], [address] Monocytes/100 WBC (Bld) 7.2 % Normal 0-10 [facility] Comment on above: Performed By: #### L 501.9520, L506.1000, L500.4050, L500.4100, L100.0100 #### [facility] [address] [place], [address] Neutrophils/100 WBC (Bld) 64.6 % Normal 47-70 [facility] Comment on above: Performed By: #### L 501.9520, L506.1000, L500.4050, L500.4100, L100.0100 #### [facility] [address] [place], [address] Nucleated RBC (Bld) [#/Vol] 0 10*3/uL Normal 0-5 [facility] Comment on above: Performed By: #### L 501.9520, L506.1000, L500.4050, L500.4100, L100.0100 #### [facility] [address] [place], [address] Platelet mean volume (Bld) [Entitic vol] 9.0 fL Normal 6.2-12.0 [facility] Comment on above: Performed By: #### L 501.9520, L506.1000, L500.4050, L500.4100, L100.0100 #### [facility] [address] [place], [address] Platelets (Bld) [#/Vol] 514 10*3/uL High 150-450 [facility] Comment on above: Performed By: #### L 501.9520, L506.1000, L500.4050, L500.4100, L100.0100 #### [facility] [address] [place], [address] RBC (Bld) [#/Vol] 4.33 10*6/uL Normal 4.2-5.4 [facility] Comment on above: Performed By: #### L 501.9520, L506.1000, L500.4050, L500.4100, L100.0100 #### [facility] [address] [place], [address] RDW SD 45.2 fl High 35.1-43.9 [facility] Comment on above: Performed By: #### L 501.9520, L506.1000, L500.4050, L500.4100, L100.0100 #### [facility] [address] [place], [address] WBC (Bld) [#/Vol] 8.3 10*3/uL Normal 4.4-11.0 [facility] Comment on above: Performed By: #### L 501.9520, L506.1000, L500.4050, L500.4100, L100.0100 #### [facility] [address] [place], [address] Calculated very low density lipoprotein (VLDL) cholesterol measurementOrdered By: Yobany Snell on 07-18-2024 Calculated very low density lipoprotein (VLDL) cholesterol measurement 27 mg/dL 5-40 [facility] VLDL Cholesterol 27 mg/dL -40 [facility] Carbon dioxide, total [Moles /volume] in Central venous bloodOrdered By: Yobany Snell on 07-18-2024 CO2 [Moles/Vol] 25.0 mmol/L 21.0-32.0 [facility] Chloride assayOrdered By: Gamaliel Snell on 07-18-2024 Chloride [Moles/Vol] 95 mmol/L Low 98-108 [facility] Comprehensive Metabolic Prof ilon 07-18-2024 Albumin [Mass/Vol] 4.9 g/dL High 3.4-4.8 [facility] Comment on above: Performed By: #### L 501.9520, L506.1000, L500.4050, L500.4100, L100.0100 #### [facility] [address] [place], [address] Albumin/Globulin [Mass ratio] 1.6 {ratio} Normal 0.9-2.4 [facility] Comment on above: Performed By: #### L 501.9520, L506.1000, L500.4050, L500.4100, L100.0100 #### [facility] [address] [place], [address] ALK PHOS 136 U/L High 35-104 [facility] Comment on above: Performed By: #### L 501.9520, L506.1000, L500.4050, L500.4100, L100.0100 #### [facility] [address] [place], [address] ALT [Catalytic activity/Vol] 13 U/L Normal <=34 [facility] Comment on above: Performed By: #### L 501.9520, L506.1000, L500.4050, L500.4100, L100.0100 #### [facility] [address] [place], [address] AST [Catalytic activity/Vol] 19 U/L Normal <=31 [facility] Comment on above: Performed By: #### L 501.9520, L506.1000, L500.4050, L500.4100, L100.0100 #### [facility] [address] [place], [address] Bilirubin [Mass/Vol] 0.33 mg/dL Normal 0.00-1.30 [facility] Comment on above: Performed By: #### L 501.9520, L506.1000, L500.4050, L500.4100, L100.0100 #### [facility] [address] [place], [address] BUN/CRE 10.1 RATIO Normal 10-20 [facility] Comment on above: Performed By: #### L 501.9520, L506.1000, L500.4050, L500.4100, L100.0100 #### [facility] [address] [place], [address] Calcium [Mass/Vol] 9.4 mg/dL Normal 7.6-11.0 [facility] Comment on above: Performed By: #### L 501.9520, L506.1000, L500.4050, L500.4100, L100.0100 #### [facility] [address] [place], [address] Chloride [Moles/Vol] 95 mmol/L Low 98-108 [facility] Comment on above: Performed By: #### L 501.9520, L506.1000, L500.4050, L500.4100, L100.0100 #### [facility] [address] [place], [address] CO2 [Moles/Vol] 25.0 mmol/L Normal 21.0-32.0 [facility] Comment on above: Performed By: #### L 501.9520, L506.1000, L500.4050, L500.4100, L100.0100 #### [facility] [address] [place], [address] Creatinine [Mass/Vol] 1.09 mg/dL Normal 0.70-1.20 [facility] Comment on above: Performed By: #### L 501.9520, L506.1000, L500.4050, L500.4100, L100.0100 #### [facility] [address] [place], [address] GAP 14 Normal 5-15 [facility] Comment on above: Performed By: #### L 501.9520, L506.1000, L500.4050, L500.4100, L100.0100 #### [facility] [address] [place], [address] GFR/1.73 sq M.predicted among non-blacks MDRD (S/P/Bld) [Vol rate/Area] 56 mL/min/{1.73_m2} Low >60 [facility] Comment on above: Result Comment: mL/m in/1.73m2 CKD-EPI Creatinine Equation (2020) Performed By: #### L 501.9520, L506.1000, L500.4050, L500.4100, L100.0100 #### [facility] [address] [place], [address] Globulin (S) [Mass/Vol] 3.1 g/dL Normal 2.2-4.2 [facility] Comment on above: Performed By: #### L 501.9520, L506.1000, L500.4050, L500.4100, L100.0100 #### [facility] [address] [place], [address] Glucose [Mass/Vol] 113 mg/dL High 70-99 [facility] Comment on above: Performed By: #### L 501.9520, L506.1000, L500.4050, L500.4100, L100.0100 #### [facility] [address] [place], [address] Potassium [Moles/Vol] 3.7 mmol/L Normal 3.3-5.1 [facility] Comment on above: Performed By: #### L 501.9520, L506.1000, L500.4050, L500.4100, L100.0100 #### [facility] [address] [place], [address] Sodium [Moles/Vol] 134 mmol/L Normal 133-145 [facility] Comment on above: Performed By: #### L 501.9520, L506.1000, L500.4050, L500.4100, L100.0100 #### [facility] [address] [place], [address] T PROT 7.9 g/dL Normal 5.9-8.4 [facility] Comment on above: Performed By: #### L 501.9520, L506.1000, L500.4050, L500.4100, L100.0100 #### [facility] [address] [place], [address] Urea nitrogen [Mass/Vol] 11 mg/dL Normal 4-19 [facility] Comment on above: Performed By: #### L 501.9520, L506.1000, L500.4050, L500.4100, L100.0100 #### [facility] [address] [place], [address] Eosinophil percentageOrdered By: Yobany Snell on 07-18-2024 Eosinophils/100 WBC (Bld) 1.6 % 0-5 [facility] Erythrocyte distribution wid th ratioOrdered By: Yobany Snell on 07-18-2024 Erythrocyte distribution width (RBC) [Ratio] 12.6 % 11.6-14.6 [facility] Erythrocyte distribution wid th standard deviationOrdered By: Yobany Snell on 07-18-2024 Erythrocyte distribution width (RBC) [Entitic vol] 45.2 fL High 35.1-43.9 [facility] Erythrocyte distribution width (RBC) [Ratio] 45.2 fl High 35.1-43.9 [facility] GFR/1.73 sq M.predicted vic g non-blacks MDRD (S/P/Bld) [Vol rate/Area]Ordered By: Yobany Snell on 07-18-2024 Estimated GFR (MDRD) Non-Af Amer 56 Low >60 [facility] Comment on above: mL/min/1.73m2 CKD-EP I Creatinine Equation (2020) Glomerular filtration rate ( GFR) estimation/1.73 sq m using serum, plasma, or whole bOrdered By: Yobany Snell on 07-18-2024 GFR/1.73 sq M.predicted among non-blacks MDRD (S/P/Bld) [Vol rate/Area] 56 mL/min/{1.73_m2} Low >60 [facility] Comment on above: mL/min/1.73m2 CKD-EP I Creatinine Equation (2020) Hematocrit Auto (Bld) [Volum e fraction]Ordered By: Yobany Snell on 07-18-2024 Hematocrit (Bld) [Volume fraction] 41.6 % 37-47 [facility] Hemoglobin measurementOrdere d By: Yobany Snell 07-18-2024 Hemoglobin (Bld) [Mass/Vol] 14.3 g/dL 12.0-15.0 [facility] Immature granulocytes/100 WB C Auto (Bld)Ordered By: Yobany Snell on 07-18-2024 Immature granulocytes/100 WBC (Bld) 0.400 % 0.0-0.9 [facility] Comment on above: IG% - Immature Granu locytes (promyelocytes, myelocytes and metamyelocytes) > 1% indicates that a LEFT SHIFT is Present. L506.1001on 07-18-2024 Vitamin D 25-OH 29.5 ng/mL Low 30-100 [facility] Comment on above: Result Comment: Shelbi min D Status Deficiency: <20 ng/mL (50nmol/L) Insufficiency: 20-30 ng/mL (50-75 nmol/L) Sufficiency: 30-100 ng/mL (75-250 nmol/L) Toxicity: >100 ng/mL (>250 nmol/L) Performed By: #### L 501.9520, L506.1000, L500.4050, L500.4100, L100.0100 #### [facility] [address], [address] LDL calc ser/plasOrdered By: Yobany Snell on 07-18-2024 Cholesterol in LDL [Mass/Vol] 256 mg/dL [facility] Comment on above: Dnlvjdrmwr=369-319 m g/dL & Higher Ikoo=549 mg/dL or greater LDL Cholesterol, Calculated 256 mg/dL [facility] Comment on above: Msfsqmsvve=553-310 m g/dL & Higher Oxqa=255 mg/dL or greater Laboratory - Chemistry and C hemistry - challengeOrdered By: Yobany Snell on 07-18-2024 AST [Catalytic activity/Vol] 19 U/L <32 [facility] Lipid Profileon 07-18-2024 CHOL:HDL 6.[address] [facility] Comment on above: Performed By: #### L 501.9520, L506.1000, L500.4050, L500.4100, L100.0100 #### [facility] [address] [place], [address] Cholesterol [Mass/Vol] 336 mg/dL High <=200 [facility] Comment on above: Result Comment: Chol esterol level, Desirable <200 mg/dL Borderline high cholesterol 200-239 mg/dL High cholesterol >=240 mg/dL Recommendations of the NCEP Adult Treatment Panel for the following risk-cutoff thresholds for the [place] population. Performed By: #### L 501.9520, L506.1000, L500.4050, L500.4100, L100.0100 #### [facility] [address] [place], [address] Cholesterol in HDL [Mass/Vol] 53 mg/dL Normal [facility] Comment on above: Result Comment: Cassandra onal Cholesterol Education Program (NCEP) guidelines: <40 mg/dL: Low HDL-cholesterol (major risk factor for CHD) >= 60 mg/dL: High HDL-cholesterol (negative risk factor for CHD) HDL-cholesterol is affected by a number of factors, e.g. smoking, exercise, hormones, sex and age. Performed By: #### L 501.9520, L506.1000, L500.4050, L500.4100, L100.0100 #### [facility] [address] [place], [address] Cholesterol in LDL [Mass/Vol] 256 mg/dL Normal [facility] Comment on above: Result Comment: Bord vqsgyi=612-482 mg/dL Higher Nfcw=707 mg/dL or greater Performed By: #### L 501.9520, L506.1000, L500.4050, L500.4100, L100.0100 #### [facility] [address] [place], [address] Cholesterol in VLDL [Mass/Vol] 27 mg/dL Normal 5-40 [facility] Comment on above: Performed By: #### L 501.9520, L506.1000, L500.4050, L500.4100, L100.0100 #### [facility] [address] [place], [address] Triglyceride [Mass/Vol] 136 mg/dL Normal [facility] Comment on above: Result Comment: The drugs N-Acetylcysteine and Metamizole may falsely depress this assay. Normal range: <150 mg/dL Borderline High: 150-199 mg/dL High: 200-499 mg/dL Very High: >500 mg/dL Performed By: #### L 501.9520, L506.1000, L500.4050, L500.4100, L100.0100 #### [facility] [address] [place], [address] Lymphocytes Auto (Unsp spec) [#/Vol]Ordered By: Yobany Snell on 07-18-2024 Lymphocytes (Bld) [#/Vol] 2.07 10*3/uL 0.83-4.51 [facility] Lymphocytes/100 WBC Auto (Un sp spec)Ordered By: Yobany Snell on 07-18-2024 Lymphocytes/100 WBC (Bld) 24.8 % 19-41 [facility] MCV (mean corpuscular volume ) determinationOrdered By: Yobany Snell on 07-18-2024 MCV (RBC) [Entitic vol] 96.1 fL 81-99 [facility] Mean corpuscular hemoglobin (MCH) determinationOrdered By: Yobany Snell on 07-18-2024 MCH (RBC) [Entitic mass] 33.0 pg High 27.0-32.0 [facility] Mean corpuscular hemoglobin concentration (MCHC) determinationOrdered By: Yobany Snell on 07-18-2024 MCHC (RBC) [Mass/Vol] 34.4 g/dL 32-36 [facility] Mean platelet volume determi nationOrdered By: Yobany Snell on 07-18-2024 Platelet mean volume (Bld) [Entitic vol] 9.0 fL 6.2-12.0 [facility] Monocyte percentageOrdered B y: Yobany Silvaok on 07-18-2024 Monocytes/100 WBC (Bld) 7.2 % 0-10 [facility] Neutrophil percentageOrdered By: Yobany Silvaok on 07-18-2024 Neutrophils/100 WBC (Bld) 64.6 % 47-70 [facility] Nucleated red blood cell per centageOrdered By: Yobany Snell on 07-18-2024 Nucleated RBC/100 WBC (Bld) [Ratio] 0 % 0-5 [facility] Platelet countOrdered By: Gamaliel Snell on 07-18-2024 Platelets (Bld) [#/Vol] 514 10*3/uL High 150-450 [facility] Potassium (Unsp spec) [Mass/ Vol]Ordered By: Yobany Snell on 07-18-2024 Potassium [Moles/Vol] 3.7 mmol/L 3.3-5.1 [facility] Potassium measurement (mass/ volume)Ordered By: Yobany Snell on 07-18-2024 Potassium (Unsp spec) [Mass/Vol] 3.7 mmol/L 3.3-5.1 [facility] RBC Auto (Bld) [#/Vol]Ordere d By: Yobany Snell on 07-18-2024 RBC (Bld) [#/Vol] 4.33 10*6/uL 4.2-5.4 [facility] Screening total cholesterol/ high density lipoprotein (HDL) cholesterol ratioOrdered By: Yobany Snell on 07-18-2024 Cholesterol.total/Rhonda sterol in HDL [Mass ratio] 6.40 {ratio} [facility] Serum creatinine measurement (mass/volume)Ordered By: Yobany Snell on 07-18-2024 Creatinine [Mass/Vol] 1.09 mg/dL 0.70-1.20 [facility] Serum globulin measurementOr dered By: Yobany Snell on 07-18-2024 Globulin (S) [Mass/Vol] 3.1 g/dL 2.2-4.2 [facility] Serum glucose measurement (m ass/volume)Ordered By: Yobany Snell on 07-18-2024 Glucose [Mass/Vol] 113 mg/dL High 70-99 [facility] Serum or plasma alanine huggins otransferase (ALT) measurementOrdered By: Yobany Snell 07-18-2024 ALT [Catalytic activity/Vol] 13 U/L <35 [facility] Serum or plasma albumin chace urement (mass/volume)Ordered By: Yobany Snell 07-18-2024 Albumin [Mass/Vol] 4.9 g/dL High 3.4-4.8 [facility] Serum or plasma albumin/glob ulin mass ratioOrdered By: Yobany Snell 07-18-2024 Albumin/Globulin [Mass ratio] 1.6 {ratio} 0.9-2.4 [facility] Serum or plasma alkaline venice sphatase measurementOrdered By: Yobany Snell 07-18-2024 ALP [Catalytic activity/Vol] 136 U/L High 35-104 [facility] Serum or plasma calcium chace urement (mass/volume)Ordered By: Yobany Snell 07-18-2024 Calcium [Mass/Vol] 9.4 mg/dL 7.6-11.0 [facility] Serum or plasma cholesterol in HDL measurement (mass/volume)Ordered By: Yobany Snell on 07-18-2024 Cholesterol in HDL [Mass/Vol] 53 mg/dL >40 [facility] Comment on above: National Cholesterol Education Program (NCEP) guidelines:<40 mg/dL: Low HDL-cholesterol (major risk factor for CHD)>= 60 mg/dL: High HDL-cholesterol (negative risk factor for CHD)HDL-cholesterol is affected by a number of factors, e.g. smoking, exercise, hormones, sex and age. Serum or plasma cholesterol measurement (mass/volume)Ordered By: Yobany Snell on 07-18-2024 Cholesterol [Mass/Vol] 336 mg/dL High <201 [facility] Comment on above: Cholesterol level, D esirable <200 mg/dLBorderline high cholesterol 200-239 mg/dLHigh cholesterol >=240 mg/dLRecommendations of the NCEP Adult Treatment Panel for the following risk-cutoff thresholds for the [place] population. Serum or plasma urea nitroge n measurement (mass/volume)Ordered By: Yobany Snell on 07-18-2024 Urea nitrogen [Mass/Vol] 11 mg/dL 4-19 [facility] Sodium levelOrdered By: Yobany Snell 07-18-2024 Sodium [Moles/Vol] 134 mmol/L 133-145 [facility] TSH DL <= 0.005 mIU/L QnOrde red By: Yobany Snell on 07-18-2024 Thyroid Stimulating Hormone (TSH) 1.310 uIU/mL 0.300-4.[address] [facility] TSH Qn 1.310 uIU/mL 0.300-4.[address] [facility] Thyroid Stim Hormone (TSH)on 07-18-2024 TSH 1.310 uIU/mL Normal 0.300-4.[address] [facility] Comment on above: Performed By: #### L 501.9520, L506.1000, L500.4050, L500.4100, L100.0100 #### [facility] [address] [place], [address] Total proteinOrdered By: Yobany Snell on 07-18-2024 Protein [Mass/Vol] 7.9 g/dL 5.9-8.4 [facility] Triglycerides measurementOrd ered By: Yobany Snell on 07-18-2024 Triglyceride [Mass/Vol] 136 mg/dL <199 [facility] Comment on above: The drugs N-Acetylcy steine and Metamizole may falsely depress this assay. Normal range: <150 mg/dLBorderline High: 150-199 mg/dLHigh: 200-499 mg/dLVery High: >500 mg/dL Vitamin D, 25-hydroxyOrdered By: Yobany Snell on 07-18-2024 Vitamin D 25-Hydroxy 29.5 ng/mL Low 30-100 [facility] Comment on above: Vitamin D StatusDefi ciency: <20 ng/mL (50nmol/L)Insufficiency: 20-30 ng/mL (50-75 nmol/L)Sufficiency: 30-100 ng/mL (75-250 nmol/L)Toxicity: >100 ng/mL (>250 nmol/L) White blood cell (WBC) count Ordered By: Yobany Snell on 07-18-2024 WBC (Bld) [#/Vol] 8.3 10*3/uL 4.4-11.0 [facility] 23-TD-Vstpcmu DOrdered By: Hua Snell on 04-17-2024 Vitamin D 25-Hydroxy 33.1 ng/mL [facility] Comment on above: Vitamin D 25(OH) Sta tus Range Deficiency <20 ng/mL (50nmol/L) Insufficiency 20 - 30 ng/mL (50 - 75 nmol/L) Sufficiency 30 - 100 ng/mL (75 - 250 nmol/L) Toxicity >100 ng/mL (>250 nmol/L) Absolute neutrophil countOrd ered By: Yobany Snell on 04-17-2024 Neutrophils (Bld) [#/Vol] 7.4 10*3/uL 2.0-7.7 [facility] Albumin to globulin ratioOrd ered By: Yobany Snell on 04-17-2024 Albumin/Globulin [Mass ratio] 1.3 {ratio} 0.9-2.4 [facility] Basophil percentageOrdered B y: Yobany Snell on 04-17-2024 Basophils/100 WBC (Bld) 0.6 % 0-1 [facility] Bilirubin, totalOrdered By: Yobany Snell on 04-17-2024 Bilirubin [Mass/Vol] 0.40 mg/dL 0.20-1.00 [facility] Comment on above: For patients on eltr ombopag therapy, use of Dimension [place] TBIL is not recommended. Blood urea nitrogen (BUN)/cr eatinine ratioOrdered By: Yobany Snell on 04-17-2024 Urea nitrogen/Creatinine [Mass ratio] 12.8 mg/mg 10-20 [facility] CBC W/Diff, Automatedon - Absolute Lymph 2.42 X10 3/uL Normal 0.83-4.51 [facility] Comment on above: Performed By: #### L 501.9520, L506.1000, L500.4050, L500.4100, L100.0100 #### [facility] [address] [place], [address] Absolute Neut 7.4 X10 3/uL Normal 2.0-7.7 [facility] Comment on above: Performed By: #### L 501.9520, L506.1000, L500.4050, L500.4100, L100.0100 #### [facility] [address] [place], [address] Basophils/100 WBC (Bld) 0.6 % Normal 0-1 [facility] Comment on above: Performed By: #### L 501.9520, L506.1000, L500.4050, L500.4100, L100.0100 #### [facility] [address] [place], [address] Eosinophils/100 WBC (Bld) 2.6 % Normal 0-5 [facility] Comment on above: Performed By: #### L 501.9520, L506.1000, L500.4050, L500.4100, L100.0100 #### [facility] [address] [place], [address] Erythrocyte distribution width (RBC) [Ratio] 12.4 % Normal 11.6-14.6 [facility] Comment on above: Performed By: #### L 501.9520, L506.1000, L500.4050, L500.4100, L100.0100 #### [facility] [address] [place], [address] Hematocrit (Bld) [Volume fraction] 39.1 % Normal 37-47 [facility] Comment on above: Performed By: #### L 501.9520, L506.1000, L500.4050, L500.4100, L100.0100 #### [facility] [address] [place], [address] Hemoglobin (Bld) [Mass/Vol] 12.8 g/dL Normal 12.0-15.0 [facility] Comment on above: Performed By: #### L 501.9520, L506.1000, L500.4050, L500.4100, L100.0100 #### [facility] [address] [place], [address] IG% 0.300 Normal 0.0-0.9 [facility] Comment on above: Result Comment: IG% - Immature Granulocytes (promyelocytes, myelocytes and metamyelocytes) > 1% indicates that a LEFT SHIFT is Present. Performed By: #### L 501.9520, L506.1000, L500.4050, L500.4100, L100.0100 #### [facility] [address] [place], [address] Lymphocytes/100 WBC (Bld) 22.0 % Normal 19-41 [facility] Comment on above: Performed By: #### L 501.9520, L506.1000, L500.4050, L500.4100, L100.0100 #### [facility] [address] [place], [address] MCH (RBC) [Entitic mass] 32.5 pg High 27.0-32.0 [facility] Comment on above: Performed By: #### L 501.9520, L506.1000, L500.4050, L500.4100, L100.0100 #### [facility] [address], [address] MCHC (RBC) [Mass/Vol] 32.7 g/dL Normal 32-36 [facility] Comment on above: Performed By: #### L 501.9520, L506.1000, L500.4050, L500.4100, L100.0100 #### [facility] [address], [address] MCV (RBC) [Entitic vol] 99.2 fL High 81-99 [facility] Comment on above: Performed By: #### L 501.9520, L506.1000, L500.4050, L500.4100, L100.0100 #### [facility] [address] [place], [address] Monocytes/100 WBC (Bld) 6.8 % Normal 0-10 [facility] Comment on above: Performed By: #### L 501.9520, L506.1000, L500.4050, L500.4100, L100.0100 #### [facility] [address] [place], [address] Neutrophils/100 WBC (Bld) 67.7 % Normal 47-70 [facility] Comment on above: Performed By: #### L 501.9520, L506.1000, L500.4050, L500.4100, L100.0100 #### [facility] [address] [place], [address] Nucleated RBC (Bld) [#/Vol] 0 10*3/uL Normal 0-5 [facility] Comment on above: Performed By: #### L 501.9520, L506.1000, L500.4050, L500.4100, L100.0100 #### [facility] [address] [place], [address] Platelet mean volume (Bld) [Entitic vol] 9.2 fL Normal 6.2-12.0 [facility] Comment on above: Performed By: #### L 501.9520, L506.1000, L500.4050, L500.4100, L100.0100 #### [facility] [address] [place], [address] Platelets (Bld) [#/Vol] 457 10*3/uL High 150-450 [facility] Comment on above: Performed By: #### L 501.9520, L506.1000, L500.4050, L500.4100, L100.0100 #### [facility] [address] [place], [address] RBC (Bld) [#/Vol] 3.94 10*6/uL Low 4.2-5.4 [facility] Comment on above: Performed By: #### L 501.9520, L506.1000, L500.4050, L500.4100, L100.0100 #### [facility] [address] [place], [address] RDW SD 45.6 fl High 35.1-43.9 [facility] Comment on above: Performed By: #### L 501.9520, L506.1000, L500.4050, L500.4100, L100.0100 #### [facility] [address] [place], [address] WBC (Bld) [#/Vol] 11.0 10*3/uL Normal 4.4-11.0 [facility] Comment on above: Performed By: #### L 501.9520, L506.1000, L500.4050, L500.4100, L100.0100 #### [facility] [address] [place], [address] Carbon dioxide measurementOr dered By: Yobany Snell on 04-17-2024 CO2 [Moles/Vol] 31.0 mmol/L 21.0-32.0 [facility] Chloride measurementOrdered By: Yobany Snell on 04-17-2024 Chloride [Moles/Vol] 98 mmol/L 98-107 [facility] Comprehensive Metabolic Prof ilon 04-17-2024 Albumin [Mass/Vol] 4.3 g/dL Normal 3.2-5.0 [facility] Comment on above: Performed By: #### L 501.9520, L506.1000, L500.4050, L500.4100, L100.0100 #### [facility] [address] [place], [address] Albumin/Globulin [Mass ratio] 1.3 {ratio} Normal 0.9-2.4 [facility] Comment on above: Performed By: #### L 501.9520, L506.1000, L500.4050, L500.4100, L100.0100 #### [facility] [address] [place], [address] ALK P 121 U/L High 45-117 [facility] Comment on above: Performed By: #### L 501.9520, L506.1000, L500.4050, L500.4100, L100.0100 #### [facility] [address] [place], [address] ALT [Catalytic activity/Vol] 17 U/L Normal 13-56 [facility] Comment on above: Performed By: #### L 501.9520, L506.1000, L500.4050, L500.4100, L100.0100 #### [facility] [address] [place], [address] AST [Catalytic activity/Vol] 11 U/L Low 15-37 [facility] Comment on above: Performed By: #### L 501.9520, L506.1000, L500.4050, L500.4100, L100.0100 #### [facility] [address] [place], [address] Bilirubin [Mass/Vol] 0.40 mg/dL Normal 0.20-1.00 [facility] Comment on above: Result Comment: For patients on eltrombopag therapy, use of Dimension [place] TBIL is not recommended. Performed By: #### L 501.9520, L506.1000, L500.4050, L500.4100, L100.0100 #### [facility] [address] [place], [address] BUN/CRE 12.8 RATIO Normal 10-20 [facility] Comment on above: Performed By: #### L 501.9520, L506.1000, L500.4050, L500.4100, L100.0100 #### [facility] [address] [place], [address] CA,Total 9.2 mg/dL Normal 8.5-10.1 [facility] Comment on above: Performed By: #### L 501.9520, L506.1000, L500.4050, L500.4100, L100.0100 #### [facility] [address] [place], [address] Chloride [Moles/Vol] 98 mmol/L Normal 98-107 [facility] Comment on above: Performed By: #### L 501.9520, L506.1000, L500.4050, L500.4100, L100.0100 #### [facility] [address] [place], [address] CO2 [Moles/Vol] 31.0 mmol/L Normal 21.0-32.0 [facility] Comment on above: Performed By: #### L 501.9520, L506.1000, L500.4050, L500.4100, L100.0100 #### [facility] [address] [place], [address] Creatinine [Mass/Vol] 1.17 mg/dL High 0.55-1.02 [facility] Comment on above: Result Comment: The validity of the calculated GFR GFRAA in patients over 70 years has not been determined. Clinical correlation is essential. Performed By: #### L 501.9520, L506.1000, L500.4050, L500.4100, L100.0100 #### [facility] [address] [place], [address] EST GFR - AA 60 mL/min Normal >60 [facility] Comment on above: Result Comment: Afri can [place] GFR Calc Performed By: #### L 501.9520, L506.1000, L500.4050, L500.4100, L100.0100 #### [facility] [address] [place], [address] GAP 6 Normal 5-15 [facility] Comment on above: Performed By: #### L 501.9520, L506.1000, L500.4050, L500.4100, L100.0100 #### [facility] [address] [place], [address] GFR/1.73 sq M.predicted among non-blacks MDRD (S/P/Bld) [Vol rate/Area] 49 mL/min/{1.73_m2} Low >60 [facility] Comment on above: Result Comment: Non- GFR Calc Performed By: #### L 501.9520, L506.1000, L500.4050, L500.4100, L100.0100 #### [facility] [address] [place], [address] Globulin (S) [Mass/Vol] 3.3 g/dL Normal 2.2-4.2 [facility] Comment on above: Performed By: #### L 501.9520, L506.1000, L500.4050, L500.4100, L100.0100 #### [facility] [address] [place], [address] Glucose [Mass/Vol] 92 mg/dL Normal 74-106 [facility] Comment on above: Performed By: #### L 501.9520, L506.1000, L500.4050, L500.4100, L100.0100 #### [facility] [address] [place], [address] Potassium [Moles/Vol] 3.4 mmol/L Low 3.5-5.1 [facility] Comment on above: Performed By: #### L 501.9520, L506.1000, L500.4050, L500.4100, L100.0100 #### [facility] [address] [place], [address] Sodium [Moles/Vol] 135 mmol/L Low 136-145 [facility] Comment on above: Performed By: #### L 501.9520, L506.1000, L500.4050, L500.4100, L100.0100 #### [facility] [address] [place], [address] T PROT 7.6 g/dL Normal 6.4-8.2 [facility] Comment on above: Performed By: #### L 501.9520, L506.1000, L500.4050, L500.4100, L100.0100 #### [facility] [address] [place], [address] Urea nitrogen [Mass/Vol] 15 mg/dL Normal 7-18 [facility] Comment on above: Performed By: #### L 501.9520, L506.1000, L500.4050, L500.4100, L100.0100 #### [facility] [address] [place], [address] Eosinophil percentageOrdered By: Yobany Snell on 04-17-2024 Eosinophils/100 WBC (Bld) 2.6 % 0-5 [facility] Erythrocyte distribution wid th ratioOrdered By: [facility] Erythrocyte distribution width (RBC) [Ratio] 12.4 % 11.6-14.6 [facility] Erythrocyte distribution wid th standard deviationOrdered By: Yobany Channing on 04-17-2024 Erythrocyte distribution width (RBC) [Entitic vol] 45.6 fL High 35.1-43.9 [facility] Estimated glomerular filtrat ion rate (GFR) AmericanOrdered By: Yobany Snell on 04-17-2024 Estimated GFR (MDRD) Amer 60 mL/min >60 [facility] Comment on above: GFR Calc Glomerular filtration rate ( GFR) estimationOrdered By: Yobany Snell 04-17-2024 Estimated GFR (MDRD) Non-Af Amer 49 mL/min Low >60 [facility] Comment on above: Non- GFR Calc Glucose measurementOrdered B y: Yobany Snell on 04-17-2024 Glucose [Mass/Vol] 92 mg/dL 74-106 [facility] Hematocrit Auto (Bld) [Volum e fraction]Ordered By: Yobany Snell 04-17-2024 Hematocrit (Bld) [Volume fraction] 39.1 % 37-47 [facility] Hemoglobin measurementOrdere d By: Yobany Snell 04-17-2024 Hemoglobin (Bld) [Mass/Vol] 12.8 g/dL 12.0-15.0 [facility] High density lipoprotein (HD L) measurementOrdered By: [facility] 04-17-2024 Cholesterol in HDL [Mass/Vol] 47 mg/dL >40 [facility] Comment on above: The drugs N-Acetylcy steine and Metamizole may falsely depress this assay. Reference Range HDL <40 mg/dL Low HDL Cholesterol HDL >or= 60 mg/dL High HDL Cholesterol Immature granulocytes/100 WB C Auto (Bld)Ordered By: Yobany Snell 04-17-2024 Immature granulocytes/100 WBC (Bld) 0.300 % 0.0-0.9 [facility] Comment on above: IG% - Immature Granu locytes (promyelocytes, myelocytes and metamyelocytes) > 1% indicates that a LEFT SHIFT is Present. Laboratory - Chemistry and C hemistry - challengeOrdered By: Yobany Snell on 04-17-2024 AST [Catalytic activity/Vol] 11 U/L Low 15-37 [facility] Lipid Profileon 04-17-2024 Cholesterol [Mass/Vol] 243 mg/dL High 200 [facility] Comment on above: Result Comment: <200 mg/dL Desirable 200-240 mg/dL Borderline >240 mg/dL High Risk Performed By: #### L 501.9520, L506.1000, L500.4050, L500.4100, L100.0100 #### [facility] [address] [place], [address] Cholesterol in HDL [Mass/Vol] 47 mg/dL Normal [facility] Comment on above: Result Comment: The drugs N-Acetylcysteine and Metamizole may falsely depress this assay. Reference Range HDL <40 mg/dL Low HDL Cholesterol HDL >or= 60 mg/dL High HDL Cholesterol Performed By: #### L 501.9520, L506.1000, L500.4050, L500.4100, L100.0100 #### [facility] [address] [place], [address] Cholesterol in LDL [Mass/Vol] 150 mg/dL High 0-130 [facility] Comment on above: Performed By: #### L 501.9520, L506.1000, L500.4050, L500.4100, L100.0100 #### [facility] [address] [place], [address] Cholesterol in VLDL [Mass/Vol] 46 mg/dL High 5-40 [facility] Comment on above: Performed By: #### L 501.9520, L506.1000, L500.4050, L500.4100, L100.0100 #### [facility] [address] [place], [address] Triglyceride [Mass/Vol] 230 mg/dL High W [facility] Comment on above: Result Comment: The drugs N-Acetylcysteine and Metamizole may falsely depress this assay. Serum Triglycerides Reference Interval Normal <150 mg/dL Borderline high 150 - 199 mg/dL High 200 - 499 mg/dL Very High > or = 500 mg/dL Performed By: #### L 501.9520, L506.1000, L500.4050, L500.4100, L100.0100 #### [facility] [address] [facility] [place], [place], [address] Low density lipoprotein (LDL ) cholesterol measurementOrdered By: Yobany Snell on 04-17-2024 Cholesterol in LDL [Mass/Vol] 150 mg/dL High 0-130 [facility] Lymphocytes Auto (Unsp spec) [#/Vol]Ordered By: Yobany Snell on 04-17-2024 Lymphocytes (Bld) [#/Vol] 2.42 10*3/uL 0.83-4.51 [facility] Lymphocytes/100 WBC Auto (Un sp spec)Ordered By: Yobany Snell on 04-17-2024 Lymphocytes/100 WBC (Bld) 22.0 % 19-41 [facility] MCV (mean corpuscular volume ) determinationOrdered By: Yobany Snell on 04-17-2024 MCV (RBC) [Entitic vol] 99.2 fL High 81-99 [facility] Mean corpuscular hemoglobin (MCH) determinationOrdered By: Yobany Snell on 04-17-2024 MCH (RBC) [Entitic mass] 32.5 pg High 27.0-32.0 [facility] Mean corpuscular hemoglobin concentration (MCHC) determinationOrdered By: Yobany Snell on 04-17-2024 MCHC (RBC) [Mass/Vol] 32.7 g/dL 32-36 [facility] Mean platelet volume determi nationOrdered By: Yobany Snell on 04-17-2024 Platelet mean volume (Bld) [Entitic vol] 9.2 fL 6.2-12.0 [facility] Monocyte percentageOrdered B y: Yobany Snell on 04-17-2024 Monocytes/100 WBC (Bld) 6.8 % 0-10 [facility] Neutrophil percentageOrdered By: Yobany Snell on 04-17-2024 Neutrophils/100 WBC (Bld) 67.7 % 47-70 [facility] Nucleated red blood cell per centageOrdered By: Yobany Snell on 04-17-2024 Nucleated RBC/100 WBC (Bld) [Ratio] 0 % 0-5 [facility] Platelet countOrdered By: Gamaliel Snell on 04-17-2024 Platelets (Bld) [#/Vol] 457 10*3/uL High 150-450 [facility] Potassium measurementOrdered By: Yobany Snell on 04-17-2024 Potassium [Moles/Vol] 3.4 mmol/L Low 3.5-5.1 [facility] RBC Auto (Bld) [#/Vol]Ordere d By: Yobany Snell on 04-17-2024 RBC (Bld) [#/Vol] 3.94 10*6/uL Low 4.2-5.4 [facility] Serum anion gap measurementO rdered By: Yobany Snell on 04-17-2024 Anion gap [Moles/Vol] 6 mmol/L 5-15 [facility] Serum globulin measurementOr dered By: Yobany Snell 04-17-2024 Globulin (S) [Mass/Vol] 3.3 g/dL 2.2-4.2 [facility] Serum or plasma alanine huggins otransferase (ALT) measurementOrdered By: Yobany Snell 04-17-2024 ALT [Catalytic activity/Vol] 17 U/L 13-56 [facility] Serum or plasma albumin chace urement (mass/volume)Ordered By: Yobany Snell 04-17-2024 Albumin [Mass/Vol] 4.3 g/dL 3.2-5.0 [facility] Serum or plasma alkaline venice sphatase measurementOrdered By: Yobany Snell 04-17-2024 ALP [Catalytic activity/Vol] 121 U/L High 45-117 [facility] Serum or plasma calcium chace urement (mass/volume)Ordered By: Yobany Snell 04-17-2024 Calcium [Mass/Vol] 9.2 mg/dL 8.5-10.1 [facility] Serum or plasma cholesterol measurement (mass/volume)Ordered By: Yobany Snell on 04-17-2024 Cholesterol [Mass/Vol] 243 mg/dL High <200 [facility] Comment on above: <200 mg/dL Desirable 200-240 mg/dL Borderline >240 mg/dL High Risk Serum or plasma creatinine m easurement (mass/volume)Ordered By: Yobany Snell on 04-17-2024 Creatinine [Mass/Vol] 1.17 mg/dL High 0.55-1.02 [facility] Comment on above: The validity of the calculated GFR & GFRAA in patients over 70 years has not been determined. Clinical correlation is essential. Serum or plasma urea nitroge n measurement (mass/volume)Ordered By: Yobany Snell on 04-17-2024 Urea nitrogen [Mass/Vol] 15 mg/dL 7-18 [facility] Sodium levelOrdered By: Yobany Snell on 04-17-2024 Sodium [Moles/Vol] 135 mmol/L Low 136-145 [facility] TSH QnOrdered By: Yobany Snell o n 04-17-2024 Thyroid Stimulating Hormone (TSH) 1.990 uIU/mL 0.358-3.[address] [facility] Thyroid Stim Hormone (TSH)on 04-17-2024 TSH 1.990 uIU/mL Normal 0.358-3.[address] [facility] Comment on above: Performed By: #### L 501.9520, L506.1000, L500.4050, L500.4100, L100.0100 #### [facility] [address] [place], [place] [address]all [facility] [place], [address] Total proteinOrdered By: Yobany Snell on 04-17-2024 Protein [Mass/Vol] 7.6 g/dL 6.4-8.2 [facility] Triglycerides measurementOrd ered By: Yobany Snell on 04-17-2024 Triglyceride [Mass/Vol] 230 mg/dL High <199 [facility] Comment on above: The drugs N-Acetylcy steine and Metamizole may falsely depress this assay.Serum Triglycerides Reference Interval Normal <150 mg/dL Borderline high 150 - 199 mg/dL High 200 - 499 mg/dL Very High > or = 500 mg/dL Very low density lipoprotein (VLDL) cholesterol measurementOrdered By: Yobany Snell on 04-17-2024 VLDL Cholesterol 46 mg/dL High 5-40 [facility] Vitamin D,25 Hydroxyon 04-17 Vitamin D 25-OH 33.1 ng/mL Normal [facility] Comment on above: Result Comment: Shelbi min D 25(OH) Status Range Deficiency <20 ng/mL (50nmol/L) Insufficiency 20 - 30 ng/mL (50 - 75 nmol/L) Sufficiency 30 - 100 ng/mL (75 - 250 nmol/L) Toxicity >100 ng/mL (>250 nmol/L) Performed By: #### L 501.9520, L506.1000, L500.4050, L500.4100, L100.0100 #### [facility] [address] [place], [address] White blood cell (WBC) count Ordered By: Yobany Snell on 04-17-2024 WBC (Bld) [#/Vol] 11.0 10*3/uL 4.4-11.0 [facility] SCRN MAMM (CAD)W/TERRENCE BILATo n 02-07-2024 SCRN MAMM (CAD)W/TERRENCE BILAT [facility] Imaging Services [address] [place] [address] SCRN MAMM (CAD)W/TERRENCE BILAT MR#: [id number] Acct: [id number] Name: NAVIN AUGUST I Rep #: [id number] : 1960 F 63 From: Flo paredes MD PCP: Dr. Yobany Snell MD Status: [facility] Study: SCRN MAMM (CAD)W/TERRENCE BILAT Date of Exam: 01/16 08/07 Exam# [id number] Ordering Dr: Yobany Snell MD [id number] MAMMOGRAPHY - BILATERAL SCREENING REASON FOR EXAM: Female, 63 years old. Routine annual screening examination. PERTINENT HISTORY: Sister with breast cancer. TECHNIQUE: Digital bilateral breast terrence (3D mammographic acquisition) in the CC and MLO projections. 2-D mediolateral oblique (MLO) and craniocaudad (CC) views of both breasts were obtained. CAD: Full Field Digital Mammography with Computer Added Detection was performed. COMPARISON: Comparison is made with prior study dated June 24, 2020 and September 18, 2016. FINDINGS: Breast Composition: The breasts are heterogeneously dense, which may obscure small masses. There are no dominant masses or suspicious calcifications. Stable bilateral fat containing axillary lymph nodes. No other significant abnormalities are identified. There has been no significant change since the prior study. BI/SCRN MAMM (CAD)W/TERRENCE BILAT IMPRESSION: Stable bilateral screening mammogram. Yearly follow-up mammogram recommended. (A) ASSESSMENT CATEGORY: BIRADS Category 2: Benign. A letter regarding these results will be sent to the patient by the facility within 30 days. Approximately 10% of breast cancers are not detected by mammography. A normal mammogram should not delay biopsy of a clinically suspicious abnormality. [id number] Electronically Signed: Flo Reyes MD at 8:30 EDT , CC: Dr. Yobany Snell MD Medical Device Sales Consultant: Signed Normal [facility] CBC W/Diff, Automatedon 12-16 Absolute Lymph 2.13 X10 3/uL Normal 0.83-4.51 [facility] Comment on above: Performed By: #### L 506.1000, L500.4050, L500.4100, L501.9520, L100.0100 #### [facility] [address] [place], [address] Absolute Neut 5.1 X10 3/uL Normal 2.0-7.7 [facility] Comment on above: Performed By: #### L 506.1000, L500.4050, L500.4100, L501.9520, L100.0100 #### [facility] [address] [place], [address] Basophils/100 WBC (Bld) 0.8 % Normal 0-1 [facility] Comment on above: Performed By: #### L 506.1000, L500.4050, L500.4100, L501.9520, L100.0100 #### [facility] [address] [place], [address] Eosinophils/100 WBC (Bld) 1.4 % Normal 0-5 [facility] Comment on above: Performed By: #### L 506.1000, L500.4050, L500.4100, L501.9520, L100.0100 #### [facility] [address] [place], [address] Erythrocyte distribution width (RBC) [Ratio] 12.5 % Normal 11.6-14.6 [facility] Comment on above: Performed By: #### L 506.1000, L500.4050, L500.4100, L501.9520, L100.0100 #### [facility] [address] [place], [address] Hematocrit (Bld) [Volume fraction] 37.1 % Normal 37-47 [facility] Comment on above: Performed By: #### L 506.1000, L500.4050, L500.4100, L501.9520, L100.0100 #### [facility] [address] [place], [address] Hemoglobin (Bld) [Mass/Vol] 12.4 g/dL Normal 12.0-15.0 [facility] Comment on above: Performed By: #### L 506.1000, L500.4050, L500.4100, L501.9520, L100.0100 #### [facility] [address] [place], [address] IG% 0.300 Normal 0.0-0.9 [facility] Comment on above: Result Comment: IG% - Immature Granulocytes (promyelocytes, myelocytes and metamyelocytes) > 1% indicates that a LEFT SHIFT is Present. Performed By: #### L 506.1000, L500.4050, L500.4100, L501.9520, L100.0100 #### [facility] [address] [place], [address] Lymphocytes/100 WBC (Bld) 26.9 % Normal 19-41 [facility] Comment on above: Performed By: #### L 506.1000, L500.4050, L500.4100, L501.9520, L100.0100 #### [facility] [address] [place], [address] MCH (RBC) [Entitic mass] 32.7 pg High 27.0-32.0 [facility] Comment on above: Performed By: #### L 506.1000, L500.4050, L500.4100, L501.9520, L100.0100 #### [facility] [address] [place], [address] MCHC (RBC) [Mass/Vol] 33.4 g/dL Normal 32-36 [facility] Comment on above: Performed By: #### L 506.1000, L500.4050, L500.4100, L501.9520, L100.0100 #### [facility] [address] [place], [address] MCV (RBC) [Entitic vol] 97.9 fL Normal 81-99 [facility] Comment on above: Performed By: #### L 506.1000, L500.4050, L500.4100, L501.9520, L100.0100 #### [facility] [address] [place], [address] Monocytes/100 WBC (Bld) 6.3 % Normal 0-10 [facility] Comment on above: Performed By: #### L 506.1000, L500.4050, L500.4100, L501.9520, L100.0100 #### [facility] [address] [place], [address] Neutrophils/100 WBC (Bld) 64.3 % Normal 47-70 [facility] Comment on above: Performed By: #### L 506.1000, L500.4050, L500.4100, L501.9520, L100.0100 #### [facility] [address] [place], [address] Nucleated RBC (Bld) [#/Vol] 0 10*3/uL Normal 0-5 [facility] Comment on above: Performed By: #### L 506.1000, L500.4050, L500.4100, L501.9520, L100.0100 #### [facility] [address] [place], [address] Platelet mean volume (Bld) [Entitic vol] 8.9 fL Normal 6.2-12.0 [facility] Comment on above: Performed By: #### L 506.1000, L500.4050, L500.4100, L501.9520, L100.0100 #### [facility] [address] [place], [address] Platelets (Bld) [#/Vol] 506 10*3/uL High 150-450 [facility] Comment on above: Performed By: #### L 506.1000, L500.4050, L500.4100, L501.9520, L100.0100 #### [facility] [address] [place], [address] RBC (Bld) [#/Vol] 3.79 10*6/uL Low 4.2-5.4 [facility] Comment on above: Performed By: #### L 506.1000, L500.4050, L500.4100, L501.9520, L100.0100 #### [facility] [address] [place], [address] RDW SD 44.8 fl High 35.1-43.9 [facility] Comment on above: Performed By: #### L 506.1000, L500.4050, L500.4100, L501.9520, L100.0100 #### [facility] [address] [place], [address] WBC (Bld) [#/Vol] 7.9 10*3/uL Normal 4.4-11.0 [facility] Comment on above: Performed By: #### L 506.1000, L500.4050, L500.4100, L501.9520, L100.0100 #### [facility] [address] [place], [address] Comprehensive Metabolic [facility] 01-12-2024 Albumin [Mass/Vol] 4.0 g/dL Normal 3.2-5.0 [facility] Comment on above: Performed By: #### L 501.9520, L506.1000, L500.4050, L500.4100, L100.0100 #### [facility] [address] [place], [address] Albumin/Globulin [Mass ratio] 1.2 {ratio} Normal 0.9-2.4 [facility] Comment on above: Performed By: #### L 501.9520, L506.1000, L500.4050, L500.4100, L100.0100 #### [facility] [address] [place], [address] ALK P 95 U/L Normal 45-117 [facility] Comment on above: Performed By: #### L 501.9520, L506.1000, L500.4050, L500.4100, L100.0100 #### [facility] [address] [place], [address] ALT [Catalytic activity/Vol] 20 U/L Normal 13-56 [facility] Comment on above: Performed By: #### L 501.9520, L506.1000, L500.4050, L500.4100, L100.0100 #### [facility] [address] [place], [address] AST [Catalytic activity/Vol] 14 U/L Low 15-37 [facility] Comment on above: Performed By: #### L 501.9520, L506.1000, L500.4050, L500.4100, L100.0100 #### [facility] [address] [place], [address] Bilirubin [Mass/Vol] 0.30 mg/dL Normal 0.20-1.00 [facility] Comment on above: Result Comment: For patients on eltrombopag therapy, use of Dimension [place] TBIL is not recommended. Performed By: #### L 501.9520, L506.1000, L500.4050, L500.4100, L100.0100 #### [facility] [address] [place], [address] BUN/CRE 9.1 RATIO Low 10-20 [facility] Comment on above: Performed By: #### L 501.9520, L506.1000, L500.4050, L500.4100, L100.0100 #### [facility] [address] [place], [address] CA,Total 9.2 mg/dL Normal 8.5-10.1 [facility] Comment on above: Performed By: #### L 501.9520, L506.1000, L500.4050, L500.4100, L100.0100 #### [facility] [address] [place], [address] Chloride [Moles/Vol] 97 mmol/L Low 98-107 [facility] Comment on above: Performed By: #### L 501.9520, L506.1000, L500.4050, L500.4100, L100.0100 #### [facility] [address] [place], [address] CO2 [Moles/Vol] 29.0 mmol/L Normal 21.0-32.0 [facility] Comment on above: Performed By: #### L 501.9520, L506.1000, L500.4050, L500.4100, L100.0100 #### [facility] [address] [place], [address] Creatinine [Mass/Vol] 0.99 mg/dL Normal 0.55-1.02 [facility] Comment on above: Result Comment: The validity of the calculated GFR GFRAA in patients over 70 years has not been determined. Clinical correlation is essential. Performed By: #### L 501.9520, L506.1000, L500.4050, L500.4100, L100.0100 #### [facility] [address] [place], [address] EST GFR - AA 73 mL/min Normal >60 [facility] Comment on above: Result Comment: Afri can Swiss GFR Calc Performed By: #### L 501.9520, L506.1000, L500.4050, L500.4100, L100.0100 #### [facility] [address] [place], [address] GAP 5 Normal 5-15 [facility] Comment on above: Performed By: #### L 501.9520, L506.1000, L500.4050, L500.4100, L100.0100 #### [facility] [address] [place], [address] GFR/1.73 sq M.predicted among non-blacks MDRD (S/P/Bld) [Vol rate/Area] 60 mL/min/{1.73_m2} Normal >60 [facility] Comment on above: Result Comment: Non- GFR Calc Performed By: #### L 501.9520, L506.1000, L500.4050, L500.4100, L100.0100 #### [facility] [address] [place], [address] Globulin (S) [Mass/Vol] 3.4 g/dL Normal 2.2-4.2 [facility] Comment on above: Performed By: #### L 501.9520, L506.1000, L500.4050, L500.4100, L100.0100 #### [facility] [address] [place], [address] Glucose [Mass/Vol] 109 mg/dL High 74-106 [facility] Comment on above: Result Comment: Fast ing Glucose result from 100 to 125 mg/dL suggests IMPAIRED HOMEOSTASIS per A.D.A. criteria. Performed By: #### L 501.9520, L506.1000, L500.4050, L500.4100, L100.0100 #### [facility] [address] [place], [address] Potassium [Moles/Vol] 3.8 mmol/L Normal 3.5-5.1 [facility] Comment on above: Performed By: #### L 501.9520, L506.1000, L500.4050, L500.4100, L100.0100 #### [facility] [address] [place], [address] Sodium [Moles/Vol] 131 mmol/L Low 136-145 [facility] Comment on above: Performed By: #### L 501.9520, L506.1000, L500.4050, L500.4100, L100.0100 #### [facility] [address] [place], [address] T PROT 7.4 g/dL Normal 6.4-8.2 [facility] Comment on above: Performed By: #### L 501.9520, L506.1000, L500.4050, L500.4100, L100.0100 #### [facility] [address] [place], [address] Urea nitrogen [Mass/Vol] 9 mg/dL Normal 7-18 [facility] Comment on above: Performed By: #### L 501.9520, L506.1000, L500.4050, L500.4100, L100.0100 #### [facility] [address] [place], [address] Lipid Profileon 01-12-2024 Cholesterol [Mass/Vol] 259 mg/dL High 200 [facility] Comment on above: Result Comment: <200 mg/dL Desirable 200-240 mg/dL Borderline >240 mg/dL High Risk Performed By: #### L 501.9520, L506.1000, L500.4050, L500.4100, L100.0100 #### [facility] [address] [place], [address] Cholesterol in HDL [Mass/Vol] 51 mg/dL Normal [facility] Comment on above: Result Comment: The drugs N-Acetylcysteine and Metamizole may falsely depress this assay. Reference Range HDL <40 mg/dL Low HDL Cholesterol HDL >or= 60 mg/dL High HDL Cholesterol Performed By: #### L 501.9520, L506.1000, L500.4050, L500.4100, L100.0100 #### [facility] [address] [place], [address] Cholesterol in LDL [Mass/Vol] 176 mg/dL High 0-130 [facility] Comment on above: Performed By: #### L 501.9520, L506.1000, L500.4050, L500.4100, L100.0100 #### [facility] [address] [place], [address] Cholesterol in VLDL [Mass/Vol] 32 mg/dL Normal 5-40 [facility] Comment on above: Performed By: #### L 501.9520, L506.1000, L500.4050, L500.4100, L100.0100 #### [facility] [address] [place], [address] Triglyceride [Mass/Vol] 160 mg/dL Normal [facility] Comment on above: Result Comment: The drugs N-Acetylcysteine and Metamizole may falsely depress this assay. Serum Triglycerides Reference Interval Normal <150 mg/dL Borderline high 150 - 199 mg/dL High 200 - 499 mg/dL Very High > or = 500 mg/dL Performed By: #### L 501.9520, L506.1000, L500.4050, L500.4100, L100.0100 #### [facility] [address] [place], [address] Thyroid Stim Hormone (TSH)on 01-12-2024 TSH 0.893 uIU/mL Normal 0.358-3.[address] [facility] Comment on above: Performed By: #### L 501.9520, L506.1000, L500.4050, L500.4100, L100.0100 #### [facility] [address] [place], [address] Vitamin D,25 Hydroxyon 01-11 Vitamin D 25-OH 32.4 ng/mL Normal [facility] Comment on above: Result Comment: Shelbi min D 25(OH) Status Range Deficiency <20 ng/mL (50nmol/L) Insufficiency 20 - 30 ng/mL (50 - 75 nmol/L) Sufficiency 30 - 100 ng/mL (75 - 250 nmol/L) Toxicity >100 ng/mL (>250 nmol/L) Performed By: #### L 501.9520, L506.1000, L500.4050, L500.4100, L100.0100 #### [facility] [address] [place], [address] CBC W/Diff, Automatedon 05-3 Absolute Lymph 1.86 X10 3/uL Normal 0.83-4.51 [facility] Comment on above: Performed By: #### L 501.9520, L506.1000, L500.4050, L500.4100, L100.0100 #### [facility] [address] [place], [address] Absolute Neut 6.6 X10 3/uL Normal 2.0-7.7 [facility] Comment on above: Performed By: #### L 501.9520, L506.1000, L500.4050, L500.4100, L100.0100 #### [facility] [address] [place], [address] Basophils/100 WBC (Bld) 1.0 % Normal 0-1 [facility] Comment on above: Performed By: #### L 501.9520, L506.1000, L500.4050, L500.4100, L100.0100 #### [facility] [address] [place], [address] Eosinophils/100 WBC (Bld) 1.2 % Normal 0-5 [facility] Comment on above: Performed By: #### L 501.9520, L506.1000, L500.4050, L500.4100, L100.0100 #### [facility] [address] [place], [address] Erythrocyte distribution width (RBC) [Ratio] 12.7 % Normal 11.6-14.6 [facility] Comment on above: Performed By: #### L 501.9520, L506.1000, L500.4050, L500.4100, L100.0100 #### [facility] [address] [place], [address] Hematocrit (Bld) [Volume fraction] 41.5 % Normal 37-47 [facility] Comment on above: Performed By: #### L 501.9520, L506.1000, L500.4050, L500.4100, L100.0100 #### [facility] [address] [place], [address] Hemoglobin (Bld) [Mass/Vol] 13.9 g/dL Normal 12.0-15.0 [facility] Comment on above: Performed By: #### L 501.9520, L506.1000, L500.4050, L500.4100, L100.0100 #### [facility] [address] [place], [address] IG% 0.400 Normal 0.0-0.9 [facility] Comment on above: Result Comment: IG% - Immature Granulocytes (promyelocytes, myelocytes and metamyelocytes) > 1% indicates that a LEFT SHIFT is Present. Performed By: #### L 501.9520, L506.1000, L500.4050, L500.4100, L100.0100 #### [facility] [address] [place], [address] Lymphocytes/100 WBC (Bld) 20.3 % Normal 19-41 [facility] Comment on above: Performed By: #### L 501.9520, L506.1000, L500.4050, L500.4100, L100.0100 #### [facility] [address] [place], [address] MCH (RBC) [Entitic mass] 32.8 pg High 27.0-32.0 [facility] Comment on above: Performed By: #### L 501.9520, L506.1000, L500.4050, L500.4100, L100.0100 #### [facility] [address] [place], [address] MCHC (RBC) [Mass/Vol] 33.5 g/dL Normal 32-36 [facility] Comment on above: Performed By: #### L 501.9520, L506.1000, L500.4050, L500.4100, L100.0100 #### [facility] [address] [place], [address] MCV (RBC) [Entitic vol] 97.9 fL Normal 81-99 [facility] Comment on above: Performed By: #### L 501.9520, L506.1000, L500.4050, L500.4100, L100.0100 #### [facility] [address] [place], [address] Monocytes/100 WBC (Bld) 5.4 % Normal 0-10 [facility] Comment on above: Performed By: #### L 501.9520, L506.1000, L500.4050, L500.4100, L100.0100 #### [facility] [address] [place], [address] Neutrophils/100 WBC (Bld) 71.7 % High 47-70 [facility] Comment on above: Performed By: #### L 501.9520, L506.1000, L500.4050, L500.4100, L100.0100 #### [facility] [address] [place], [address] Nucleated RBC (Bld) [#/Vol] 0 10*3/uL Normal 0-5 [facility] Comment on above: Performed By: #### L 501.9520, L506.1000, L500.4050, L500.4100, L100.0100 #### [facility] [address] [place], [address] Platelet mean volume (Bld) [Entitic vol] 8.4 fL Normal 6.2-12.0 [facility] Comment on above: Performed By: #### L 501.9520, L506.1000, L500.4050, L500.4100, L100.0100 #### [facility] [address] [place], [address] Platelets (Bld) [#/Vol] 512 10*3/uL High 150-450 [facility] Comment on above: Performed By: #### L 501.9520, L506.1000, L500.4050, L500.4100, L100.0100 #### [facility] [address] [place], [address] RBC (Bld) [#/Vol] 4.24 10*6/uL Normal 4.2-5.4 [facility] Comment on above: Performed By: #### L 501.9520, L506.1000, L500.4050, L500.4100, L100.0100 #### [facility] [address] [place], [address] RDW SD 45.6 fl High 35.1-43.9 [facility] Comment on above: Performed By: #### L 501.9520, L506.1000, L500.4050, L500.4100, L100.0100 #### [facility] [address] [place], [address] WBC (Bld) [#/Vol] 9.2 10*3/uL Normal 4.4-11.0 [facility] Comment on above: Performed By: #### L 501.9520, L506.1000, L500.4050, L500.4100, L100.0100 #### [facility] [address] [place], [address] Comprehensive Metabolic Prof ilon 10-15-2023 Albumin [Mass/Vol] 4.2 g/dL Normal 3.2-5.0 [facility] Comment on above: Performed By: #### L 501.9520, L506.1000, L500.4050, L500.4100, L100.0100 #### [facility] [address] [place], [address] Albumin/Globulin [Mass ratio] 1.1 {ratio} Normal 0.9-2.4 [facility] Comment on above: Performed By: #### L 501.9520, L506.1000, L500.4050, L500.4100, L100.0100 #### [facility] [address] [place], [address] ALK P 95 U/L Normal 45-117 [facility] Comment on above: Performed By: #### L 501.9520, L506.1000, L500.4050, L500.4100, L100.0100 #### [facility] [address] [place], [address] ALT [Catalytic activity/Vol] 23 U/L Normal 13-56 [facility] Comment on above: Performed By: #### L 501.9520, L506.1000, L500.4050, L500.4100, L100.0100 #### [facility] [address] [place], [address] AST [Catalytic activity/Vol] 17 U/L Normal 15-37 [facility] Comment on above: Performed By: #### L 501.9520, L506.1000, L500.4050, L500.4100, L100.0100 #### [facility] [address] [place], [address] Bilirubin [Mass/Vol] 0.30 mg/dL Normal 0.20-1.00 [facility] Comment on above: Result Comment: For patients on eltrombopag therapy, use of Dimension [place] TBIL is not recommended. Performed By: #### L 501.9520, L506.1000, L500.4050, L500.4100, L100.0100 #### [facility] [address] [place], [address] BUN/CRE 11.3 RATIO Normal 10-20 [facility] Comment on above: Performed By: #### L 501.9520, L506.1000, L500.4050, L500.4100, L100.0100 #### [facility] [address] [place], [address] CA,Total 9.4 mg/dL Normal 8.5-10.1 [facility] Comment on above: Performed By: #### L 501.9520, L506.1000, L500.4050, L500.4100, L100.0100 #### [facility] [address] [place], [address] Chloride [Moles/Vol] 98 mmol/L Normal 98-107 [facility] Comment on above: Performed By: #### L 501.9520, L506.1000, L500.4050, L500.4100, L100.0100 #### [facility] [address] [place], [address] CO2 [Moles/Vol] 29.0 mmol/L Normal 21.0-32.0 [facility] Comment on above: Performed By: #### L 501.9520, L506.1000, L500.4050, L500.4100, L100.0100 #### [facility] [address] [place], [address] Creatinine [Mass/Vol] 1.06 mg/dL High 0.55-1.02 [facility] Comment on above: Result Comment: The validity of the calculated GFR GFRAA in patients over 70 years has not been determined. Clinical correlation is essential. Performed By: #### L 501.9520, L506.1000, L500.4050, L500.4100, L100.0100 #### [facility] [address] [place], [address] EST GFR - AA 67 mL/min Normal >60 [facility] Comment on above: Result Comment: Afri can Swiss GFR Calc Performed By: #### L 501.9520, L506.1000, L500.4050, L500.4100, L100.0100 #### [facility] [address] [place], [address] GAP 5 Normal 5-15 [facility] Comment on above: Performed By: #### L 501.9520, L506.1000, L500.4050, L500.4100, L100.0100 #### [facility] [address] [place], [address] GFR/1.73 sq M.predicted among non-blacks MDRD (S/P/Bld) [Vol rate/Area] 55 mL/min/{1.73_m2} Low >60 [facility] Comment on above: Result Comment: Non- GFR Calc Performed By: #### L 501.9520, L506.1000, L500.4050, L500.4100, L100.0100 #### [facility] [address] [place], [address] Globulin (S) [Mass/Vol] 3.8 g/dL Normal 2.2-4.2 W [facility] Comment on above: Performed By: #### L 501.9520, L506.1000, L500.4050, L500.4100, L100.0100 #### [facility] [address] [place], [address] Glucose [Mass/Vol] 97 mg/dL Normal 74-106 [facility] Comment on above: Performed By: #### L 501.9520, L506.1000, L500.4050, L500.4100, L100.0100 #### [facility] [address] [place], [address] Potassium [Moles/Vol] 3.9 mmol/L Normal 3.5-5.1 [facility] Comment on above: Performed By: #### L 501.9520, L506.1000, L500.4050, L500.4100, L100.0100 #### [facility] [address] [place], [address] Sodium [Moles/Vol] 132 mmol/L Low 136-145 [facility] Comment on above: Performed By: #### L 501.9520, L506.1000, L500.4050, L500.4100, L100.0100 #### [facility] [address] [place], [address] T PROT 8.0 g/dL Normal 6.4-8.2 [facility] Comment on above: Performed By: #### L 501.9520, L506.1000, L500.4050, L500.4100, L100.0100 #### [facility] [address] [place], [address] Urea nitrogen [Mass/Vol] 12 mg/dL Normal 7-18 [facility] Comment on above: Performed By: #### L 501.9520, L506.1000, L500.4050, L500.4100, L100.0100 #### [facility] [address] [place], [address] Lipid Profileon 10-15-2023 Cholesterol [Mass/Vol] 253 mg/dL High 200 [facility] Comment on above: Result Comment: <200 mg/dL Desirable 200-240 mg/dL Borderline >240 mg/dL High Risk Performed By: #### L 501.9520, L506.1000, L500.4050, L500.4100, L100.0100 #### [facility] [address] [place], [address] Cholesterol in HDL [Mass/Vol] 46 mg/dL Normal [facility] Comment on above: Result Comment: The drugs N-Acetylcysteine and Metamizole may falsely depress this assay. Reference Range HDL <40 mg/dL Low HDL Cholesterol HDL >or= 60 mg/dL High HDL Cholesterol Performed By: #### L 501.9520, L506.1000, L500.4050, L500.4100, L100.0100 #### [facility] [address] [place], [address] Cholesterol in LDL [Mass/Vol] 167 mg/dL High 0-130 [facility] Comment on above: Performed By: #### L 501.9520, L506.1000, L500.4050, L500.4100, L100.0100 #### [facility] [address] [place], [address] Cholesterol in VLDL [Mass/Vol] 40 mg/dL Normal 5-40 [facility] Comment on above: Performed By: #### L 501.9520, L506.1000, L500.4050, L500.4100, L100.0100 #### [facility] [address] [place], [address] Triglyceride [Mass/Vol] 198 mg/dL Normal [facility] Comment on above: Result Comment: The drugs N-Acetylcysteine and Metamizole may falsely depress this assay. Serum Triglycerides Reference Interval Normal <150 mg/dL Borderline high 150 - 199 mg/dL High 200 - 499 mg/dL Very High > or = 500 mg/dL Performed By: #### L 501.9520, L506.1000, L500.4050, L500.4100, L100.0100 #### [facility] [address] [place], [address] Thyroid Stim Hormone (TSH)on 10-15-2023 TSH 1.18 uIU/mL Normal 0.358-3.74 [facility] Comment on above: Performed By: #### L 501.9520, L506.1000, L500.4050, L500.4100, L100.0100 #### [facility] [address] [facility] [place], [address] Vitamin D,25 Hydroxyon 10-14 Vitamin D 25-OH 28.7 ng/mL Normal [facility] Comment on above: Result Comment: Shelbi min D 25(OH) Status Range Deficiency <20 ng/mL (50nmol/L) Insufficiency 20 - 30 ng/mL (50 - 75 nmol/L) Sufficiency 30 - 100 ng/mL (75 - 250 nmol/L) Toxicity >100 ng/mL (>250 nmol/L) Performed By: #### L 501.9520, L506.1000, L500.4050, L500.4100, L100.0100 #### [facility] [address] [facility] [place], [place], [id number] Absolute lymphocyte countOrd ered By: Yobany Snell on 07-15-2023 Lymphocytes Auto (Unsp spec) [#/Vol] 1.80 10*3/uL 0.83-4.51 [facility] Automated lymphocyte count a s percentage of total leukocytesOrdered By: Yobany Snell on 07-15-2023 Lymphocytes/100 WBC Auto (Unsp spec) 29.4 % 19-41 [facility] Basophil percentageOrdered B y: Yobany Snell on 07-15-2023 Basophils/100 WBC (Bld) 1.1 % 0-1 W [facility] Bilirubin [Mass/Vol] 0.30 mg/dL 0.20-1.00 [facility] Comment on above: For patients on eltr ombopag therapy, use of Dimension [place] TBIL is not recommended. Chloride [Moles/Vol] 101 mmol/L 98-107 [facility] Cholesterol [Mass/Vol] 244 mg/dL <200 [facility] Comment on above: <200 mg/dL Desirable 200-240 mg/dL Borderline >240 mg/dL High Risk Eosinophils/100 WBC (Bld) 2.8 % 0-5 [facility] Glucose [Mass/Vol] 118 mg/dL 74-106 [facility] Comment on above: Fasting Glucose resu lt from 100 to 125 mg/dL suggests IMPAIRED HOMEOSTASIS per A.D.A. criteria. Hemoglobin (Bld) [Mass/Vol] 13.8 g/dL 12.0-15.0 [facility] Monocytes/100 WBC (Bld) 7.7 % 0-10 W [facility] Neutrophils (Bld) [#/Vol] 3.6 10*3/uL 2.0-7.7 [facility] Neutrophils/100 WBC (Bld) 58.7 % 47-70 [facility] Potassium [Moles/Vol] 4.1 mmol/L 3.5-5.1 [facility] Protein [Mass/Vol] 7.6 g/dL 6.4-8.2 [facility] Sodium [Moles/Vol] 135 mmol/L 136-145 [facility] Triglyceride [Mass/Vol] 128 mg/dL <199 [facility] Comment on above: The drugs N-Acetylcy steine and Metamizole may falsely depress this assay.Serum Triglycerides Reference Interval Normal <150 mg/dL Borderline high 150 - 199 mg/dL High 200 - 499 mg/dL Very High > or = 500 mg/dL WBC (Bld) [#/Vol] 6.1 10*3/uL 4.4-11.0 [facility] Determination of erythrocyte mean corpuscular volume (MCV)Ordered By: Yobany Snell on 07-15-2023 MCV (RBC) [Entitic vol] 96.0 fL 81-99 [facility] Erythrocyte distribution wid th ratioOrdered By: Yobany Snell on 07-15-2023 Erythrocyte distribution width (RBC) [Ratio] 12.3 % 11.6-14.6 [facility] Erythrocyte distribution wid th standard deviationOrdered By: Yobany Snell on 07-15-2023 Erythrocyte distribution width (RBC) [Entitic vol] 43.5 fL 35.1-43.9 [facility] Hematocrit Auto (Bld) [Volum e fraction]Ordered By: Yobany Snell on 07-15-2023 Hematocrit (Bld) [Volume fraction] 40.7 % 37-47 [facility] Immature granulocytes/100 WB C Auto (Bld)Ordered By: Yobany Snell on 07-15-2023 Immature granulocytes/100 WBC (Bld) 0.300 % 0.0-0.9 [facility] Comment on above: IG% - Immature Granu locytes (promyelocytes, myelocytes and metamyelocytes) > 1% indicates that a LEFT SHIFT is Present. Laboratory - Chemistry and C hemistry - challengeOrdered By: Yobany Snell on 07-15-2023 Albumin/Globulin [Mass ratio] 1.1 {ratio} 0.9-2.4 [facility] ALP [Catalytic activity/Vol] 100 U/L 45-117 [facility] ALT [Catalytic activity/Vol] 17 U/L 13-56 [facility] Cholesterol in HDL [Mass/Vol] 48 mg/dL >40 [facility] Comment on above: The drugs N-Acetylcy steine and Metamizole may falsely depress this assay. Reference Range HDL <40 mg/dL Low HDL Cholesterol HDL >or= 60 mg/dL High HDL Cholesterol Cholesterol in LDL [Mass/Vol] 170 mg/dL 0-130 [facility] CO2 [Moles/Vol] 28.0 mmol/L 21.0-32.0 [facility] Globulin (S) [Mass/Vol] 3.6 g/dL 2.2-4.2 [facility] Urea nitrogen/Creatinine [Mass ratio] 11.8 mg/mg 10-20 [facility] - Hematology and Cell countsOrdered By: Yobany Snell on 07-15-2023 MCH (RBC) [Entitic mass] 32.5 pg 27.0-32.0 [facility] MCHC (RBC) [Mass/Vol] 33.9 g/dL 32-36 [facility] Nucleated RBC/100 WBC (Bld) [Ratio] 0 % 0-5 [facility] Platelet mean volume (Bld) [Entitic vol] 9.2 fL 6.2-12.0 [facility] Platelets (Bld) [#/Vol] 429 10*3/uL 150-450 [facility] No Panel InformationOrdered By: Yobany Snell on 07-15-2023 Estimated GFR (MDRD) Amer 64 mL/min >60 [facility] Comment on above: GFR Calc Estimated GFR (MDRD) Non-Af Amer 53 mL/min >60 [facility] Comment on above: Non- GFR Calc VLDL Cholesterol 26 mg/dL 5-40 [facility] RBC Auto (Bld) [#/Vol]Ordere d By: Yobany Snell on 07-15-2023 RBC (Bld) [#/Vol] 4.24 10*6/uL 4.2-5.4 [facility] Serum or plasma calcium chace urement (mass/volume)Ordered By: Yobany Snell on 07-15-2023 Calcium [Mass/Vol] 9.5 mg/dL 8.5-10.1 [facility] Serum or plasma creatinine m easurement (mass/volume)Ordered By: Yobany Snell on 07-15-2023 Creatinine [Mass/Vol] 1.10 mg/dL 0.55-1.02 [facility] Comment on above: The validity of the calculated GFR & GFRAA in patients over 70 years has not been determined. Clinical correlation is essential. Serum or plasma thyroid stim ulating hormone (TSH) measurement (units/volume)Ordered By: Yobany Snell on 07-15-2023 TSH Qn 1.41 uIU/mL 0.358-3.74 [facility] Serum or plasma urea nitroge n measurement (mass/volume)Ordered By: Yobany Snell on 07-15-2023 Urea nitrogen [Mass/Vol] 13 mg/dL 7-18 [facility] Thin prep Papanicolaou smear with manual screeningOrdered By: Yobany Snell on 07-15-2023 Thin prep Papanicolaou smear with manual screening 4.0 g/dL 3.2-5.0 [facility] Thin prep Papanicolaou smear with manual screening 15 U/L 15-37 [facility] Thin prep Papanicolaou smear with manual screening 6 5-15 [facility] No Panel InformationOrdered By: Yobany Snell on 06-24-2023 Miscellaneous Test See comment [facility] Comment on above: TEST RESULTS LIMITSB eta Amyloid 42/40 Ratio, CSF Beta-amyloid 42 890 pg/mL Beta-amyloid 40 9404 pg/mL Beta-amyloid 42/40 0.095 0.058Interpretation: CSF beta-amyloid 1-42/1-40 ratios less than 0.058 indicate a higher likelihood of a patient having a clinical diagnosis of Alzheimer's Disease (AD), whereas values equal to or greater than 0.058 indicate a lower likelihood of AD diagnosis. Studies have shown a correlation between CSF beta-amyloid levels and PET scan results (1,2).Additionally, studies have demonstrated that a CSF obqw-rwddhap6-44/1-40 ratio is a better predictor for diagnosing AD than betaamyloid 1-42 levels alone (3). This assay should be used as an adjunct to neurologic evaluation, including diagnostic imaging, cognitive performance scales and other biomarkers of AD.The performance of the [facility] beta-amyloid 42/40 ratio test on the [employer] Pupp[employer] platform (cutoff = 0.058; sensitivity, specificity, PPV, NVP>90%) is consistent with previous studies (1). CSF beta-amyloid 1-42/1-40 ratios less 0.058 (<0.058) are concordant with amyloid PET imaging positivity and higher likelihood of pathological changes associated with AD, whereas values greater than or equal to 0.058 (>=0.058) are concordant with amyloid PET imaging negativity and not associated with AD.References: 1. Ramiro LERNERJ, Miryam BM, lona Farmer BnM, et al. (2020) Prediction of amyloid PET status using the Lumipulse G beta-amyloid ratio (1-42/1-40). Alzheimer's Dementia: 16 (Suppl.4): i142996. Presented at the Alzheimer's Association International Conference 2020, virtual meeting.2. Vesna D, Shi J, Suresh L, et al. Agreement of amyloid PET and CSF biomarkers for Alzheimer's disease on Lumipulse. Annals of Clinical and Translational Neurology 2019; 6(9): 0290-3579.3. Tom Machuca, Manny S, Carroll Wang, Tracey H and Mateus P. Advantages and disadvantages of the use of the CSF Amyloid beta (A beta) 42/40 ratio in the diagnosis of Alzheimer's Disease. Alz Res / Ther (2019) 11:34.This test was developed and its performance characteristicsdetermined by [facility]. It has not been cleared or approvedby the Food and Drug Administration. TESTING PERFORMED AT [facility]. ORIGINAL REPORT ON FILE IN LAB CONTAINS ADDITIONAL TEST SITE INFORMATION. Basophil percentageOrdered B y: Yobany Snell on 05-03-2023 Chloride [Moles/Vol] 99 mmol/L 98-107 [facility] Glucose [Mass/Vol] 101 mg/dL 74-106 [facility] Comment on above: Fasting Glucose resu lt from 100 to 125 mg/dL suggests IMPAIRED HOMEOSTASIS per A.D.A. criteria. Potassium [Moles/Vol] 3.6 mmol/L 3.5-5.1 [facility] Sodium [Moles/Vol] 135 mmol/L 136-145 [facility] - Chemistry and C hemistry - challengeOrdered By: Yobany Snell on 05-03-2023 CO2 [Moles/Vol] 29.0 mmol/L 21.0-32.0 [facility] Sodium (U) [Moles/Vol] 32 mmol/L Not Establ. [facility] Urea nitrogen/Creatinine [Mass ratio] 6.4 mg/mg 10-20 [facility] No Panel InformationOrdered By: Yobany Snell on 05-03-2023 Estimated GFR (MDRD) Amer 65 mL/min >60 [facility] Comment on above: GFR Calc Estimated GFR (MDRD) Non-Af Amer 54 mL/min >60 [facility] Comment on above: Non- GFR Calc Serum or plasma calcium chace urement (mass/volume)Ordered By: Yobany Snell on 05-03-2023 Calcium [Mass/Vol] 9.0 mg/dL 8.5-10.1 [facility] Serum or plasma creatinine m easurement (mass/volume)Ordered By: Yobany Snell on 05-03-2023 Creatinine [Mass/Vol] 1.09 mg/dL 0.55-1.02 [facility] Comment on above: The validity of the calculated GFR & GFRAA in patients over 70 years has not been determined. Clinical correlation is essential. Serum or plasma urea nitroge n measurement (mass/volume)Ordered By: Yobany Snell on 05-03-2023 Urea nitrogen [Mass/Vol] 7 mg/dL - [facility] Thin prep Papanicolaou smear with manual screeningOrdered By: Yobany Snell on 05-03-2023 Thin prep Papanicolaou smear with manual screening 7 - [facility] Thin prep Papanicolaou smear with manual screening 280 mOsm/KG 280-301 [facility] Urine osmolality measurement Ordered By: Yobany Snell on 05-03-2023 Osmolality (U) [Osmolality] 106 mOsm/KG >50 [facility] Comment on above: Normal Urine Referen ce Ranges Random: 50 - 1200 mOsm/kg H20 depending on fluid intake Random: >850 mOsm/kg after 12 hour fluid restriction 24 hour: ~300 - 900 mOsm/kg H2O Absolute lymphocyte countOrd ered By: Zi San on 04-25-2023 Lymphocytes Auto (Unsp spec) [#/Vol] 2.19 10*3/uL 0.83-4.51 [facility] Basophil percentageOrdered B y: Zi San on 04-25-2023 Basophils/100 WBC (Bld) 0.9 % 0-1 [facility] Chloride [Moles/Vol] 93 mmol/L 98-107 [facility] Eosinophils/100 WBC (Bld) 1.7 % 0-5 [facility] Glucose [Mass/Vol] 120 mg/dL 74-106 [facility] Comment on above: Fasting Glucose resu lt from 100 to 125 mg/dL suggests IMPAIRED HOMEOSTASIS per A.D.A. criteria. Neutrophils (Bld) [#/Vol] 4.7 10*3/uL 2.0-7.7 [facility] Neutrophils/100 WBC (Bld) 61.2 % 47-70 [facility] Potassium [Moles/Vol] 3.5 mmol/L 3.5-5.1 [facility] Sodium [Moles/Vol] 127 mmol/L 136-145 [facility] WBC (Bld) [#/Vol] 7.6 10*3/uL 4.4-11.0 [facility] Blood erythrocytes count (nu mber/volume)Ordered By: Zi San on 04-25-2023 RBC (Bld) [#/Vol] 4.32 10*6/uL 4.2-5.4 [facility] Blood hemoglobin measurement (mass/volume)Ordered By: Zi San on 04-25-2023 Hemoglobin (Bld) [Mass/Vol] 14.0 g/dL 12.0-15.0 [facility] Blood lymphocytes/100 leukoc ytesOrdered By: Zi San on 04-25-2023 Lymphocytes/100 WBC (Bld) 28.7 % 19-41 [facility] Blood monocytes/100 leukocyt esOrdered By: Zi San on 04-25-2023 Monocytes/100 WBC (Bld) 7.2 % 0-10 [facility] Blood platelet mean volumeOr dered By: Zi San on 04-25-2023 Platelet mean volume (Bld) [Entitic vol] 8.7 fL 6.2-12.0 [facility] Determination of erythrocyte mean corpuscular volume (MCV)Ordered By: Zi San on 04-25-2023 MCV (RBC) [Entitic vol] 97.2 fL 81-99 [facility] Hematocrit Auto (Bld) [Volum e fraction]Ordered By: Zi San on 04-25-2023 Hematocrit (Bld) [Volume fraction] 42.0 % 37-47 [facility] - Chemistry and C hemistry - challengeOrdered By: Zi San on 04-25-2023 CO2 [Moles/Vol] 28.0 mmol/L 21.0-32.0 [facility] Urea nitrogen/Creatinine [Mass ratio] 5.0 mg/mg 10-20 [facility] - Hematology and Cell countsOrdered By: Zi San on 04-25-2023 Erythrocyte distribution width (RBC) [Entitic vol] 43.5 fL 35.1-43.9 [facility] Erythrocyte distribution width (RBC) [Ratio] 12.0 % 11.6-14.6 [facility] Immature granulocytes/100 WBC (Bld) 0.300 % 0.0-0.9 [facility] Comment on above: IG% - Immature Granu locytes (promyelocytes, myelocytes and metamyelocytes) > 1% indicates that a LEFT SHIFT is Present. MCH (RBC) [Entitic mass] 32.4 pg 27.0-32.0 [facility] Nucleated RBC/100 WBC (Bld) [Ratio] 0 % 0-5 [facility] MCHC Auto (RBC) [Mass/Vol]Or dered By: Zi San on 04-25-2023 MCHC (RBC) [Mass/Vol] 33.3 g/dL 32-36 [facility] No Panel InformationOrdered By: Zi San on 04-25-2023 Estimated Creatinine Clearance Calc 52.68 ml/min [facility] Estimated GFR (MDRD) Amer 71 mL/min >60 [facility] Comment on above: GFR Calc Estimated GFR (MDRD) Non-Af Amer 59 mL/min >60 [facility] Comment on above: Non- GFR Calc Platelets bldOrdered By: Thee San on 04-25-2023 Platelets (Bld) [#/Vol] 415 10*3/uL 150-450 [facility] Serum or plasma calcium chace urement (mass/volume)Ordered By: Zi San on 04-25-2023 Calcium [Mass/Vol] 9.3 mg/dL 8.5-10.1 [facility] Serum or plasma creatinine m easurement (mass/volume)Ordered By: Zi San on 04-25-2023 Creatinine [Mass/Vol] 1.01 mg/dL 0.55-1.02 [facility] Comment on above: The validity of the calculated GFR & GFRAA in patients over 70 years has not been determined. Clinical correlation is essential. Serum or plasma urea nitroge n measurement (mass/volume)Ordered By: Zi San on 04-25-2023 Urea nitrogen [Mass/Vol] 5 mg/dL 7-18 [facility] Thin prep Papanicolaou smear with manual screeningOrdered By: Zi San on 04-25-2023 Thin prep Papanicolaou smear with manual screening 6 5-15 [facility] Absolute lymphocyte countOrd ered By: Yobany Snell on 04-15-2023 Lymphocytes Auto (Unsp spec) [#/Vol] 1.79 10*3/uL 0.83-4.51 [facility] Basophil percentageOrdered B y: Yobany Snell on 04-15-2023 Basophils/100 WBC (Bld) 1.3 % 0-1 [facility] Bilirubin [Mass/Vol] 0.40 mg/dL 0.20-1.00 [facility] Comment on above: For patients on eltr ombopag therapy, use of Dimension [place] TBIL is not recommended. Chloride [Moles/Vol] 97 mmol/L 98-107 [facility] Cholesterol [Mass/Vol] 277 mg/dL <200 [facility] Comment on above: <200 mg/dL Desirable 200-240 mg/dL Borderline >240 mg/dL High Risk Eosinophils/100 WBC (Bld) 1.6 % 0-5 [facility] Glucose [Mass/Vol] 122 mg/dL 74-106 [facility] Comment on above: Fasting Glucose resu lt from 100 to 125 mg/dL suggests IMPAIRED HOMEOSTASIS per A.D.A. criteria. Neutrophils (Bld) [#/Vol] 6.2 10*3/uL 2.0-7.7 [facility] Neutrophils/100 WBC (Bld) 70.7 % 47-70 [facility] Potassium [Moles/Vol] 3.8 mmol/L 3.5-5.1 [facility] Protein [Mass/Vol] 8.0 g/dL 6.4-8.2 [facility] Sodium [Moles/Vol] 132 mmol/L 136-145 [facility] Triglyceride [Mass/Vol] 174 mg/dL <199 [facility] Comment on above: The drugs N-Acetylcy steine and Metamizole may falsely depress this assay.Serum Triglycerides Reference Interval Normal <150 mg/dL Borderline high 150 - 199 mg/dL High 200 - 499 mg/dL Very High > or = 500 mg/dL WBC (Bld) [#/Vol] 8.7 10*3/uL 4.4-11.0 [facility] Blood erythrocytes count (nu mber/volume)Ordered By: [facility] Channing on 04-15-2023 RBC (Bld) [#/Vol] 4.40 10*6/uL 4.2-5.4 [facility] Blood hemoglobin measurement (mass/volume)Ordered By: Yobany Channing on 04-15-2023 Hemoglobin (Bld) [Mass/Vol] 14.3 g/dL 12.0-15.0 [facility] Blood lymphocytes/100 leukoc ytesOrdered By: [facility] on [facility] Lymphocytes/100 WBC (Bld) 20.5 % 19-41 [facility] Blood monocytes/100 leukocyt esOrdered By: [facility] on 04-15-2023 Monocytes/100 WBC (Bld) 5.6 % 0-10 [facility] Blood platelet mean volumeOr dered By: [facility] on 04-15-2023 Platelet mean volume (Bld) [Entitic vol] 9.2 fL 6.2-12.0 [facility] Determination of erythrocyte mean corpuscular volume (MCV)Ordered By: Yobany Snell on 04-15-2023 MCV (RBC) [Entitic vol] 98.2 fL 81-99 [facility] Hematocrit Auto (Bld) [Volum e fraction]Ordered By: [facility] on 04-15-2023 Hematocrit (Bld) [Volume fraction] 43.2 % 37-47 [facility] Laboratory - Chemistry and C hemistry - challengeOrdered By: [facility] on 04-15-2023 ALP [Catalytic activity/Vol] 89 U/L 45-117 [facility] ALT [Catalytic activity/Vol] 21 U/L 13-56 [facility] CO2 [Moles/Vol] 27.0 mmol/L 21.0-32.0 [facility] Globulin (S) [Mass/Vol] 3.8 g/dL 2.2-4.2 [facility] Urea nitrogen/Creatinine [Mass ratio] 7.3 mg/mg 10-20 [facility] Laboratory - Hematology and Cell countsOrdered By: [facility] on 04-15-2023 Erythrocyte distribution width (RBC) [Entitic vol] 45.5 fL 35.1-43.9 [facility] Erythrocyte distribution width (RBC) [Ratio] 12.7 % 11.6-14.6 [facility] Immature granulocytes/100 WBC (Bld) 0.300 % 0.0-0.9 [facility] Comment on above: IG% - Immature Granu locytes (promyelocytes, myelocytes and metamyelocytes) > 1% indicates that a LEFT SHIFT is Present. MCH (RBC) [Entitic mass] 32.5 pg 27.0-32.0 [facility] Nucleated RBC/100 WBC (Bld) [Ratio] 0 % 0-5 [facility] MCHC Auto (RBC) [Mass/Vol]Or dered By: Yobany Snell on 04-15-2023 MCHC (RBC) [Mass/Vol] 33.1 g/dL 32-36 [facility] No Panel InformationOrdered By: Yobany Snell on 04-15-2023 Estimated GFR (MDRD) Amer 56 mL/min >60 [facility] Comment on above: GFR Calc Estimated GFR (MDRD) Non-Af Amer 46 mL/min >60 [facility] Comment on above: Non- GFR Calc Miscellaneous Test See comment [facility] Comment on above: TEST RESULTS LIMITSA NBA Alzheimer's RiskMethodology: Patient DNA is assayed for the APOE genotype by PCRamplification of a specific region in exon 4 of the APOEgene followed by digestion with restriction enzyme Composition Instructor Iand separation of fragments by polyacrylamide gelelectrophoresis. This approach allows the APOE E2, E3, andE4 alleles to be distinguished. Analytical sensitivity andspecificity are >99.5%. Individuals are interpreted ashaving one of the following genotypes: E2/E2, E3/E3, E4/E4,E2/E3, E2/E4, E3/E4.APO E Genotyping Result: E3/H4Hwropyoznrjchs: Negative for the APOE4 variant that is associated withincreased risk for late onset Alzheimer's disease (AD).E3/E3 is the most common APOE genotype and is notassociated with increased risk for AD.RECOMMENDATIONSGenetic counseling is recommended.Due to the lack of measures to prevent the development ofAD, the ACMG/NSGC guidelines do not recommendpresymptomatic testing, but if it is performed, guidelinesare provided (Berna SWENSON et al. 2011). The APOE Genotyping:Alzheimer's Risk test is not recommended for children.NOTE: This is not a diagnostic test. Results should beinterpreted along with clinical findings and other data.This test evaluates only for the APOE genotype and cannotdetect genetic abnormalities elsewhere in the genome. Itshould be realized that there are possible sources of errorincluding sample misidentification, rare technical errors,trace contamination of PCR reactions, and rare geneticvariants that may interfere with analysis.For inquiries or genetic consultation, please call [facility] .Comment: INFORMATION ABOUT THE APOE GENOTYPE AND ALZHEIMER'S DISEASEAlzheimer's disease (AD) is the most common form ofdementia in the elderly and currently affects more than 5million Americans. It is a progressive neurodegenerativedisorder with brain findings of plaques and neurofibrillarytangles containing beta-amyloid and tau proteinrespectively.The predominant form of AD is late onset (age > 60-65),which can be familial (15-20%) or sporadic. The [id number] increases the risk for late onset AD and maycontribute to the pathology of the disease. This risk isincreased by approximately 2 to 3-fold for individuals withone copy of the APOE4 variant and by approximately [id number] for individuals with two copies of this variant(E4/E4 genotype). The APOE2 variant has some protectiveeffect against development of late onset AD. The lifetimerisk for late onset AD is approximately 10-12% in thegeneral population, though it is higher in women than menand doubles when there is a first degree relative with thisdisorder. The lifetime risk is approximately 9% forindividuals negative for APOE4, and for individuals withE4/E4 may be as high as 25% for males and 45% for females.Among patients with late onset AD, the presence of [id number] lead to earlier development of symptoms.However, APOE4 is neither necessary nor sufficient for thedevelopment of AD. Approximately 30-50% of patients withlate onset AD do not have an APOE4 allele.APOE4 is common, with 25% of the general population havingone copy and 1% having two copies of this variant. Amongpatients with late onset AD, 50-70% are positive for APOE4.The development of late onset AD is influenced by manyfactors other than APOE4 including age, gender, familyhistory, level of education and history of head trauma.Midlife cardiovascular risk factors in individuals withAPOE4 also increase risk for cognitive decline. A number ofgenetic influences in addition to APOE4 have also beenreported and are under investigation.This test was developed and its performance characteristicsdetermined by [facility]. It has not been cleared or approvedby the Food and Drug Administration. The FDA has determinedthat such clearance or approval is not necessary.REFERENCESAlálvaro A et al. Sex modifies the APOE-related risk ofdeveloping Alzheimer disease. Annal Dhdvty9952;75(4):563-573Bird TD. Alzheimer Disease Overview. [employer]!(internet). Miracle PFEIFFER et al., editors. [facility], [place], [place]. Last revised 2014.Berna SWENSON et al. Genetic counseling and testing forAlzheimer disease: Joint practice guidelines of theSt. [facility] Partnersan College of Medical Genetics and the [facility] of [employer]. Sherie in Qeo0764;[phone])597-606.Casi BOSS. Apolipoprotein E: Implications for ADneurobiology, epidemiology and risk assessment.Neurobiology of Aging 2011;32:778-790. TESTING PERFORMED AT [facility]. ORIGINAL REPORT ON FILE IN LAB CONTAINS ADDITIONAL TEST SITE INFORMATION. Thyroid Stimulating Hormone (TSH) 2.01 uIU/mL 0.358-3.74 [facility] Vitamin D 25-Hydroxy 29.8 ng/mL [facility] Comment on above: Vitamin D 25(OH) Sta tus Range Deficiency <20 ng/mL (50nmol/L) Insufficiency 20 - 30 ng/mL (50 - 75 nmol/L) Sufficiency 30 - 100 ng/mL (75 - 250 nmol/L) Toxicity >100 ng/mL (>250 nmol/L) Platelets bldOrdered By: Yobany Snell on 04-15-2023 Platelets (Bld) [#/Vol] 477 10*3/uL 150-450 [facility] Serum or plasma albumin chace urement (mass/volume)Ordered By: Yobany Snell on 04-15-2023 Albumin [Mass/Vol] 4.2 g/dL 3.2-5.0 [facility] Serum or plasma albumin/glob ulin mass ratioOrdered By: Yobany Snell on 04-15-2023 Albumin/Globulin [Mass ratio] 1.1 {ratio} 0.9-2.4 [facility] Serum or plasma calcium chace urement (mass/volume)Ordered By: Yobany Snell on 04-15-2023 Calcium [Mass/Vol] 9.1 mg/dL 8.5-10.1 [facility] Serum or plasma cholesterol in HDL measurement (mass/volume)Ordered By: Yobany Snell 04-15-2023 Cholesterol in HDL [Mass/Vol] 55 mg/dL >40 [facility] Comment on above: The drugs N-Acetylcy steine and Metamizole may falsely depress this assay. Reference Range HDL <40 mg/dL Low HDL Cholesterol HDL >or= 60 mg/dL High HDL Cholesterol Serum or plasma cholesterol in VLDL measurement (mass/volume)Ordered By: Yobany Snell 04-15-2023 Cholesterol in VLDL [Mass/Vol] 35 mg/dL 5-40 [facility] Serum or plasma creatinine m easurement (mass/volume)Ordered By: Yobany Snell 04-15-2023 Creatinine [Mass/Vol] 1.24 mg/dL 0.55-1.02 [facility] Comment on above: The validity of the calculated GFR & GFRAA in patients over 70 years has not been determined. Clinical correlation is essential. Serum or plasma low density lipoprotein (LDL) cholesterol measurement (mass/volume)Ordered By: Yobany Snell 04-15-2023 Cholesterol in LDL [Mass/Vol] 187 mg/dL 0-130 [facility] Serum or plasma urea nitroge n measurement (mass/volume)Ordered By: Yobany Snell 04-15-2023 Urea nitrogen [Mass/Vol] 9 mg/dL 7-18 [facility] Thin prep Papanicolaou smear with manual screeningOrdered By: Yobany Channing on 04-15-2023 Thin prep Papanicolaou smear with manual screening 12 U/L 15-37 [facility] Thin prep Papanicolaou smear with manual screening 8 5-15 [facility] Laboratory - Microbiology an d Antimicrobial susceptibilityOrdered By: Yobany Snell on 04-01-2023 SARS-CoV-2 (COVID-19) RNA CORAL+probe Ql (Unsp spec) [facility] No Panel InformationOrdered By: Yobany Channing on 04-01-2023 Influenza Types A,B Direct FA (RK) [facility] RSV Ag EIAOrdered By: Yobany Ricardo steven on 04-01-2023 RSV Ag Immune stain Ql (Tiss) [facility] Absolute lymphocyte countOrd ered By: Yobany Snell on 01-07-2023 Lymphocytes Auto (Unsp spec) [#/Vol] 2.31 10*3/uL 0.83-4.51 [facility] Basophil percentageOrdered B y: Yobany Snell on 01-07-2023 Basophils/100 WBC (Bld) 0.9 % 0-1 [facility] Bilirubin [Mass/Vol] 0.30 mg/dL 0.20-1.00 [facility] Comment on above: For patients on eltr ombopag therapy, use of Dimension [place] TBIL is not recommended. Chloride [Moles/Vol] 102 mmol/L 98-107 [facility] Cholesterol [Mass/Vol] 227 mg/dL <200 [facility] Comment on above: <200 mg/dL Desirable 200-240 mg/dL Borderline >240 mg/dL High Risk Eosinophils/100 WBC (Bld) 2.6 % 0-5 [facility] Glucose [Mass/Vol] 102 mg/dL 74-106 [facility] Comment on above: Fasting Glucose resu lt from 100 to 125 mg/dL suggests IMPAIRED HOMEOSTASIS per A.D.A. criteria. Neutrophils (Bld) [#/Vol] 5.0 10*3/uL 2.0-7.7 [facility] Neutrophils/100 WBC (Bld) 61.4 % 47-70 [facility] Potassium [Moles/Vol] 4.2 mmol/L 3.5-5.1 [facility] Protein [Mass/Vol] 7.5 g/dL 6.4-8.2 [facility] Sodium [Moles/Vol] 137 mmol/L 136-145 [facility] Triglyceride [Mass/Vol] 153 mg/dL <199 [facility] Comment on above: The drugs N-Acetylcy steine and Metamizole may falsely depress this assay.Serum Triglycerides Reference Interval Normal <150 mg/dL Borderline high 150 - 199 mg/dL High 200 - 499 mg/dL Very High > or = 500 mg/dL WBC (Bld) [#/Vol] 8.1 10*3/uL 4.4-11.0 [facility] Blood erythrocytes count (nu mber/volume)Ordered By: Yobany Snell on 01-07-2023 RBC (Bld) [#/Vol] 4.11 10*6/uL 4.2-5.4 [facility] Blood hemoglobin measurement (mass/volume)Ordered By: Yobany Snell on 01-07-2023 Hemoglobin (Bld) [Mass/Vol] 13.8 g/dL 12.0-15.0 [facility] Blood lymphocytes/100 leukoc ytesOrdered By: Yobany Snell on 01-07-2023 Lymphocytes/100 WBC (Bld) 28.7 % 19-41 [facility] Blood monocytes/100 leukocyt esOrdered By: Yobany Snell on 01-07-2023 Monocytes/100 WBC (Bld) 6.0 % 0-10 [facility] Blood platelet mean volumeOr dered By: Yobany Snell on 01-07-2023 Platelet mean volume (Bld) [Entitic vol] 9.7 fL 6.2-12.0 [facility] Determination of erythrocyte mean corpuscular volume (MCV)Ordered By: Yobany Snell on 01-07-2023 MCV (RBC) [Entitic vol] 102.7 fL 81-99 [facility] Hematocrit Auto (Bld) [Volum e fraction]Ordered By: Yobany Snell on 01-07-2023 Hematocrit (Bld) [Volume fraction] 42.2 % 37-47 [facility] Laboratory - Chemistry and C hemistry - challengeOrdered By: Yobany Snell on 01-07-2023 ALP [Catalytic activity/Vol] 110 U/L 45-117 [facility] ALT [Catalytic activity/Vol] 17 U/L 13-56 [facility] CO2 [Moles/Vol] 28.0 mmol/L 21.0-32.0 [facility] Globulin (S) [Mass/Vol] 3.6 g/dL 2.2-4.2 [facility] Urea nitrogen/Creatinine [Mass ratio] 11.6 mg/mg 10-20 [facility] Laboratory - Hematology and Cell countsOrdered By: Yobany Snell on 01-07-2023 Erythrocyte distribution width (RBC) [Entitic vol] 48.0 fL 35.1-43.9 [facility] Erythrocyte distribution width (RBC) [Ratio] 12.6 % 11.6-14.6 [facility] Immature granulocytes/100 WBC (Bld) 0.400 % 0.0-0.9 [facility] Comment on above: IG% - Immature Granu locytes (promyelocytes, myelocytes and metamyelocytes) > 1% indicates that a LEFT SHIFT is Present. MCH (RBC) [Entitic mass] 33.6 pg 27.0-32.0 [facility] Nucleated RBC/100 WBC (Bld) [Ratio] 0 % 0-5 [facility] MCHC Auto (RBC) [Mass/Vol]Or dered By: Yobany Snell on 01-07-2023 MCHC (RBC) [Mass/Vol] 32.7 g/dL 32-36 [facility] No Panel InformationOrdered By: Yobany Snell on 01-07-2023 Estimated GFR (MDRD) Amer 63 mL/min >60 [facility] Comment on above: GFR Calc Estimated GFR (MDRD) Non-Af Amer 52 mL/min >60 [facility] Comment on above: Non- GFR Calc Thyroid Stimulating Hormone (TSH) 1.09 uIU/mL 0.358-3.74 [facility] Platelets bldOrdered By: Yobany Snell on 01-07-2023 Platelets (Bld) [#/Vol] 458 10*3/uL 150-450 [facility] Serum or plasma albumin chace urement (mass/volume)Ordered By: Yobany Snell on 01-07-2023 Albumin [Mass/Vol] 3.9 g/dL 3.2-5.0 [facility] Serum or plasma albumin/glob ulin mass ratioOrdered By: 01-07-2023 Albumin/Globulin [Mass ratio] 1.1 {ratio} 0.9-2.4 [facility] Serum or plasma calcium chace urement (mass/volume)Ordered By: Yobany Snell 01-07-2023 Calcium [Mass/Vol] 9.2 mg/dL 8.5-10.1 [facility] Serum or plasma cholesterol in HDL measurement (mass/volume)Ordered By: Yobany Snell on 01-07-2023 Cholesterol in HDL [Mass/Vol] 49 mg/dL >40 [facility] Comment on above: The drugs N-Acetylcy steine and Metamizole may falsely depress this assay. Reference Range HDL <40 mg/dL Low HDL Cholesterol HDL >or= 60 mg/dL High HDL Cholesterol Serum or plasma cholesterol in VLDL measurement (mass/volume)Ordered By: Yobany Snell 01-07-2023 Cholesterol in VLDL [Mass/Vol] 31 mg/dL 5-40 [facility] Serum or plasma creatinine m easurement (mass/volume)Ordered By: Yobany Snell 01-07-2023 Creatinine [Mass/Vol] 1.12 mg/dL 0.55-1.02 [facility] Comment on above: The validity of the calculated GFR & GFRAA in patients over 70 years has not been determined. Clinical correlation is essential. Serum or plasma low density lipoprotein (LDL) cholesterol measurement (mass/volume)Ordered By: Yobany Snell 01-07-2023 Cholesterol in LDL [Mass/Vol] 147 mg/dL 0-130 [facility] Serum or plasma urea nitroge n measurement (mass/volume)Ordered By: Yobany Snell 01-07-2023 Urea nitrogen [Mass/Vol] 13 mg/dL 7-18 [facility] Thin prep Papanicolaou smear with manual screeningOrdered By: Yobany Channing 01-07-2023 Thin prep Papanicolaou smear with manual screening 13 U/L 15-37 [facility] Thin prep Papanicolaou smear with manual screening 7 5-15 [facility] CNPNon 11-05-2022 CNPN Telephone (ANDRES) -- NAVIN AUGUST ([id number]) 1960 F Date Time Provider Department 11/05/22 NEFTALY COKER During your visit today, we recorded the following information about you: Liliana Graham RN 11/05/2022 1:54 PM Signed Navin called to let us know that she is doing well without fentanyl patch and is not having pain at present She is pleased she no longer needs pain management and wanted to thank us for past treatment I did let her know to call us if she would need an appointment in the future SUSANA Shannon PA-C 11/05/2022 1:55 PM Signed Noted. Allergies As of Date: 11/05/2022 Noted Allergy Reaction NEURONTIN (GABAPENTIN) 01/31/2013 2 - Rash Date Reviewed: 09/11/2022 Reviewed by: Clifford Trotter RN - Fully Assessed Reason for Visit: Patient Update [1234] Prescriptions as of 11/05/2022 - methocarbamol (ROBAXIN) 500 mg tablet Take 1 tablet by mouth three times daily as needed. - cloNIDine HCl (CATAPRES) 0.1 mg tablet Take 1 tablet by mouth twice daily for 7 days. Take for symptoms of opiate withdrawal - fentaNYL (DURAGESIC) 25 mcg/hr Apply 1 Patch as directed every 48 hours for 30 days. Do not start before October 22, 2022. - galantamine (RAZADYNE) 8 mg tablet Take 16 mg by mouth once daily. - memantine (NAMENDA) 10 mg tablet Take 10 mg by mouth twice daily. - nicotine (NICODERM) 21 mg/24 hr Apply 1 Patch as directed every 24 hours. - hydrOXYzine HCl (ATARAX) 25 mg tablet take 1/2 to 3 tablets by mouth daily if needed - benztropine (COGENTIN) 0.5 mg tablet take 1 tablet by mouth twice a day if needed for MUSCLE TWITCHING - lamoTRIgine (LAMICTAL) 200 mg tablet Take 400 mg by mouth once daily. - pantoprazole DR CamposPROTONIX) 40 mg tablet - cholecalciferol (VITAMIN D3) 1,000 unit tab tablet Take 1,000 Units by mouth once daily. - meloxicam (MOBIC) 7.5 mg tablet Take 1 tablet by mouth once daily. - MULTIVITAMIN TAB Take one(1) tablet daily. 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, Mixed, or Unspecified Nondependent Drug * HEADACHE [R51] MYALGIA AND MYOSITIS NOS [[id number]] Abnormal Weight Gain [R63.5] 05/19/2007 01/15/2010 PERS HX TOBACCO USE [Z87.891] 05/19/2007 Unspecified Sleep Apnea [G47.30] 12/28/2007 SLEEP DISTURBANCE NOS [G47.9] 12/28/2007 GENERAL OSTEOARTHROSIS [M15.9] 01/01/2008 Pain in joint, lower leg [M25.569] 01/01/2008 12/29/2021 DEPRESSIVE DISORDER NEC [F32.89] 01/01/2008 Chronic pain [G89.29] 01/14/2009 Other and Unspecified Hyperlipidemia [E78.5] 01/15/2010 Tobacco Use Disorder [F17.200] 01/15/2010 Symptomatic menopausal or female climacteric st*01/31/2013 Chronic back pain [M54.9, G89.29] 01/30/2015 12/29/2021 Degeneration of intervertebral disc of cervical*08/18/2017 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 Liliana Graham RN 10/27/2022 10:58 AM Signed Navin called back and would like to have a prescription for clonidine This was discussed with her in the past She is having shaking and still feels as if she is going through withdrawal Is this ok and if so how should it be ordered Liliana Graham RN October 27, 2022 10:58 AM Neftaly Coker MD 10/27/2022 11:03 AM Signed Clonidine 0.1 mg bid x 7 days Liliana Graham RN 10/27/2022 11:24 AM Signed Navin notified with verbalized understanding. She was again instructed to seek emergency treatment for worsening symptoms or concerns Prescriptions set up to send Liliana Graham RN October 27, 2022 11:24 AM Allergies As of Date: 10/27/2022 Noted Allergy Reaction NEURONTIN (GABAPENTIN) 01/31/2013 2 - Rash Date Reviewed: 09/11/2022 Reviewed by: Clifford Trotter RN - Fully Assessed Reason for Visit: Patient Update [1234] Medication Problem [65] Visit Diagnosis:Fibromyalgia [M79.7] Order(s):methocarbamol (ROBAXIN) 500 mg tabletTake 1 tablet by mouth three times daily as needed.Disp: 90 tabletRfl: 3 cloNIDine HCl (CATAPRES) 0.1 mg tabletTake 1 tablet by mouth twice daily for 7 days. Take for symptoms of opiate withdrawalDisp: 14 tabletRfl: 0 Prescriptions as of 10/27/2022 - methocarbamol (ROBAXIN) 500 mg tablet Take 1 tablet by mouth three times daily as needed. - cloNIDine HCl (CATAPRES) 0.1 mg tablet Take 1 tablet by mouth twice daily for 7 days. Take for symptoms of opiate withdrawal - fentaNYL (DURAGESIC) 25 mcg/hr Apply 1 Patch as directed every 48 hours for 30 days. Do not start before October 22, 2022. - galantamine (RAZADYNE) 8 mg tablet Take 16 mg by mouth once daily. - memantine (NAMENDA) 10 mg tablet Take 10 mg by mouth twice daily. - nicotine (NICODERM) 21 mg/24 hr Apply 1 Patch as directed every 24 hours. - hydrOXYzine HCl (ATARAX) 25 mg tablet take 1/2 to 3 tablets by mouth daily if needed - benztropine (COGENTIN) 0.5 mg tablet take 1 tablet by mouth twice a day if needed for MUSCLE TWITCHING - lamoTRIgine (LAMICTAL) 200 mg tablet Take 400 mg by mouth once daily. - pantoprazole DR (PROTONIX) 40 mg tablet - cholecalciferol (VITAMIN D3) 1,000 unit tab tablet Take 1,000 Units by mouth once daily. - meloxicam (MOBIC) 7.5 mg tablet Take 1 tablet by mouth once daily. - MULTIVITAMIN TAB Take one(1) tablet daily. 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] Other, Mixed, or Unspecified Nondependent Drug * HEADACHE [R51] MYALGIA AND MYOSITIS NOS [[id number]] Abnormal Weight Gain [R63.5] 05/19/2007 01/15/2010 PERS HX TOBACCO USE [Z87.891] 05/19/2007 Unspecified Sleep Apnea [G47.30] 12/28/2007 SLEEP DISTURBANCE NOS [G47.9] 12/28/2007 GENERAL OSTEOARTHROSIS [M15.9] 01/01/2008 Pain in joint, lower leg [M25.569] 01/01/2008 12/29/2021 DEPRESSIVE DISORDER NEC [F32.89] 01/01/2008 Chronic pain [G89.29] 01/14/2009 Other and Unspecified Hyperlipidemia [E78.5] 01/15/2010 Tobacco Use Disorder [F17.200] 01/15/2010 Symptomatic menopausal or female climacteric st*01/31/2013 Chronic back pain [M54.9, G89.29] 01/30/2015 12/29/2021 Degeneration of intervertebral disc of cervical*08/18/2017 Degeneration of intervertebral disc of lumbar r*08/18/2017 Lumbar spondylosis [M47.816] 08/18/2017 Sacroiliitis (HCC) [M46.1] 08/18/2017 Other long-term (current) drug therapy [Z79.899]11/21/2018 Knee pain [M25.569] 05/24/2019 Fibromyalgia [M79.7] 08/18/2017 Asthma [J45.909] 10/13/2019 Prescriptions ordered this encounter Disp Refills Start End METHOCARBAMOL 500 MG TABLET 90 t* 3 10/27/2022 02/24/2023 Cmt: Prefers this [facility] pharmacy [facility] [id number] Route: ORAL Sig: Take 1 tablet by mouth three times daily as needed. CLONIDINE HCL 0.1 MG TABLET 14 t* 0 10/27/2022 11/03/2022 Cmt: [facility] [id number] Route: ORAL Sig: Take 1 tablet by mouth twice daily for 7 days. Take for symptoms of opiate withdrawal Medications Discontinued During This Encounter Prescriptions - cloNIDine HCl (CATAPRES) 0.1 mg tablet (Discont (more content not included)... [facility] SAMANTHAOVon 09-11-2022 CNOV Office Visit (PAMMJK ) -- NAVIN AUGUST ([id number]) 1960 F Date Time Provider Department 09/11/22 2:00 PM NELSY CHAUDHARI During your visit today, we recorded the following information about you: Temperature Pulse Respiration Blood pressure 97.4 degrees 93/minute 18/minute 141/96 Nelsy Chaudhari PA-C 09/11/2022 2:24 PM Signed This note was created using MONOCO. Subjective Navin August is a 62 year [...] - - Frequency Continuous Continuous Intervention/Comfort measure Medication;Relaxation;Cold ;Heat Medication;Relaxation;Cold ;Heat;Pillow support;Positioning Comments - - PAST MEDICAL HISTORY [...] to get off of this. Continue using (more content not included)... [facility] [place] 07-27-2022 CNPN Telephone (ANDRES) -- NAVIN AUGUST ([id number]) 1960 F Date Time Provider Department 07/27/22 NELSY CHAUDHARI During your visit today, we recorded the following information about you: Liliana Graham RN 07/27/2022 2:01 PM Signed Arrived for UDS Completed In addition, brought fentanyl 50 mcg patches for count ( see AG SPINE PAIN COUNT) Count appropriate Liliana Graham RN July 27, 2022 2:00 PM Allergies As of Date: 07/27/2022 Noted Allergy Reaction NEURONTIN (GABAPENTIN) 01/31/2013 2 - Rash Date Reviewed: 07/23/2022 Reviewed by: Nelsy Chuadhari PA-C - Fully Assessed Reason for Visit: UDS/ patch count [Other] Prescriptions as of 07/28/2022 - nicotine (NICODERM) 21 mg/24 hr Apply 1 Patch as directed every 24 hours. - fentaNYL 37.5 mcg/hour pt72 Apply 1 Patch as directed every 48 hours for 30 days. Do not start before August 18, 2022. - methocarbamol (ROBAXIN) 500 mg tablet Take 1 tablet by mouth three times daily as needed. - cloNIDine HCl (CATAPRES) 0.1 mg tablet Take 1 tablet by mouth twice daily for 2 days. Take for symptoms of opiate withdrawal until fentanyl prescription due to fill - hydrOXYzine HCl (ATARAX) 25 mg tablet take 1/2 to 3 tablets by mouth daily if needed - benztropine (COGENTIN) 0.5 mg tablet take 1 tablet by mouth twice a day if needed for MUSCLE TWITCHING - lamoTRIgine (LAMICTAL) 200 mg tablet Take 400 mg by mouth once daily. - pantoprazole DR (PROTONIX) 40 mg tablet - Levothyroxine 25 mcg cap Take 1 tablet by mouth once daily. - cholecalciferol (VITAMIN D3) 1,000 unit tab tablet Take 1,000 Units by mouth once daily. - meloxicam (MOBIC) 7.5 mg tablet Take 1 tablet by mouth once daily. - MULTIVITAMIN TAB Take one(1) tablet daily. 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] Other, Mixed, or Unspecified Nondependent Drug * HEADACHE [R51] MYALGIA AND MYOSITIS NOS [[id number]] Abnormal Weight Gain [R63.5] 05/19/2007 01/15/2010 PERS HX TOBACCO USE [Z87.891] 05/19/2007 Unspecified Sleep Apnea [G47.30] 12/28/2007 SLEEP DISTURBANCE NOS [G47.9] 12/28/2007 GENERAL OSTEOARTHROSIS [M15.9] 01/01/2008 Pain in joint, lower leg [M25.569] 01/01/2008 12/29/2021 DEPRESSIVE DISORDER NEC [F32.89] 01/01/2008 Chronic pain [G89.29] 01/14/2009 Other and Unspecified Hyperlipidemia [E78.5] 01/15/2010 Tobacco Use Disorder [F17.200] 01/15/2010 Symptomatic menopausal or female climacteric st*01/31/2013 Chronic back pain [M54.9, G89.29] 01/30/2015 12/29/2021 Degeneration of intervertebral disc of cervical*08/18/2017 Degeneration of intervertebral disc of lumbar r*08/18/2017 Lumbar spondylosis [M47.816] 08/18/2017 Sacroiliitis (HCC) [M46.1] 08/18/2017 Other long-term (current) drug therapy [Z79.899]11/21/2018 Knee pain [M25.569] 05/24/2019 Fibromyalgia [M79.7] 08/18/2017 Asthma [J45.909] 10/13/2019 -- Questionnaire: AG SPINE PAIN PILL COUNT MEDICATION NAME -> fentanyl STRENGTH -> 50 Cmt: mg LAST FILL DATE -> 07/19/2022 QUANTITY FILLED -> 15 QUANTITY REMAINING -> 10 COMMENTS -> appropriate count Encounter Status:Closed by LILIANA GRAHAM on 07/28/22 [facility] [place] 07-23-2022 CNPN Telephone (ANDRES) -- NAVIN AUGUST ([id number]) 1960 F Date Time Provider Department 07/23/22 NELSY CHAUDHARI During your visit today, we recorded the following information about you: Liliana Graham RN 07/23/2022 10:45 AM Addendum Navin's daughter called inquiring to visit for this afternoon She thought it was virtual when in fact she is due in the office and requires a urine drug screen She states that they recently had COVID and also have a lot of birthday parties coming up. She states she needed 2 weeks to obtain transportation She states she would not be able to get a ride for Navin until after that. I did change her appointment to virtual I notified her that mandatory UDS typically are 24-48 hrs after call but we could extend to Wednesday She is sure she won't be able to make it Liliana Graham RN July 23, 2022 10:03 AM Nelsy Chaudhari PA-C 07/23/2022 11:49 AM Signed I will discuss this with her at her virtual visit later. Allergies As of Date: 07/23/2022 Noted Allergy Reaction NEURONTIN (GABAPENTIN) 01/31/2013 2 - Rash Date Reviewed: 06/11/2022 Reviewed by: Nelsy Chaudhari PA-C - Fully Assessed Reason for Visit: Patient Update [1234] Prescriptions as of 07/23/2022 - fentaNYL (DURAGESIC) 50 mcg/hr APPLY 1 PATCH TO SKIN EVERY OTHER DAY DIRECTED Do not start before July 19, 2022. - methocarbamol (ROBAXIN) 500 mg tablet Take 1 tablet by mouth three times daily as needed. - cloNIDine HCl (CATAPRES) 0.1 mg tablet Take 1 tablet by mouth twice daily for 2 days. Take for symptoms of opiate withdrawal until fentanyl prescription due to fill - hydrOXYzine HCl (ATARAX) 25 mg tablet take 1/2 to 3 tablets by mouth daily if needed - benztropine (COGENTIN) 0.5 mg tablet take 1 tablet by mouth twice a day if needed for MUSCLE TWITCHING - lamoTRIgine (LAMICTAL) 200 mg tablet Take 400 mg by mouth once daily. - pantoprazole DR (PROTONIX) 40 mg tablet - Levothyroxine 25 mcg cap Take 1 tablet by mouth once daily. - cholecalciferol (VITAMIN D3) 1,000 unit tab tablet Take 1,000 Units by mouth once daily. - meloxicam (MOBIC) 7.5 mg tablet Take 1 tablet by mouth once daily. - MULTIVITAMIN TAB Take one(1) tablet daily. 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] Other, Mixed, or Unspecified Nondependent Drug * HEADACHE [R51] MYALGIA AND MYOSITIS NOS [[id number]] Abnormal Weight Gain [R63.5] 05/19/2007 01/15/2010 PERS HX TOBACCO USE [Z87.891] 05/19/2007 Unspecified Sleep Apnea [G47.30] 12/28/2007 SLEEP DISTURBANCE NOS [G47.9] 12/28/2007 GENERAL OSTEOARTHROSIS [M15.9] 01/01/2008 Pain in joint, lower leg [M25.569] 01/01/2008 12/29/2021 DEPRESSIVE DISORDER NEC [F32.89] 01/01/2008 Chronic pain [G89.29] 01/14/2009 Other and Unspecified Hyperlipidemia [E78.5] 01/15/2010 Tobacco Use Disorder [F17.200] 01/15/2010 Symptomatic menopausal or female climacteric st*01/31/2013 Chronic back pain [M54.9, G89.29] 01/30/2015 12/29/2021 Degeneration of intervertebral disc of cervical*08/18/2017 Degeneration of intervertebral disc of lumbar r*08/18/2017 Lumbar spondylosis [M47.816] 08/18/2017 Sacroiliitis (HCC) [M46.1] 08/18/2017 Other long-term (current) drug therapy [Z79.899]11/21/2018 Knee pain [M25.569] 05/24/2019 Fibromyalgia [M79.7] 08/18/2017 Asthma [J45.909] 10/13/2019 Encounter Status:Closed by LILIANA GRAHAM on 07/23/22 [facility] - Microbiology an d Antimicrobial susceptibilityOrdered By: Dr. Snell on 06-16-2022 SARS-CoV-2 (COVID-19) RNA CORAL+probe Ql (Unsp spec) Detected Not Detect [facility] Comment on above: Normal Reference Ran ge: Not DetectedMethod:(RT-PCR) real-time reverse transcriptase PCRLuminex ARASELI Instrument*The Food and Drug Administration (FDA) has issued an Emergency Use Authorization (EAU) for the ARASELI SARS-CoV-2 Assay for the rapid detection of the virus that causes COVID-19. This test has been validated, but the FDAs independent review of this validation is pending.*Negative results do not preclude infection and should not be used as the sole basis for treatment or patient management. Optimum specimen types and timing for peak viral levels during infections caused by SARS-CoV-2 have not been determined. Collection of multiple specimens from the same patient may be necessary to detect the virus. The possibility of a false negative result should be considered if the patient has clinical presentation or has had recent exposure. No Panel InformationOrdered By: Dr. Snell on 06-16-2022 Influenza Types A,B Direct FA (RK) [facility] RSV Ag EIAOrdered By: Dr. Ricardo harris on 06-16-2022 RSV Ag Immune stain Ql (Tiss) [facility] Absolute lymphocyte countOrd ered By: Dr. Snell on 06-15-2022 Lymphocytes Auto (Unsp spec) [#/Vol] 2.02 10*3/uL 0.83-4.51 [facility] Basophil percentageOrdered B y: Dr. Snell on 06-15-2022 Basophils/100 WBC (Bld) 0.9 % 0-1 [facility] Bilirubin [Mass/Vol] 0.40 mg/dL 0.20-1.00 [facility] Comment on above: For patients on eltr ombopag therapy, use of Dimension [place] TBIL is not recommended. Chloride [Moles/Vol] 96 mmol/L 98-107 [facility] Eosinophils/100 WBC (Bld) 2.5 % 0-5 [facility] Glucose [Mass/Vol] 101 mg/dL 74-106 [facility] Comment on above: Fasting Glucose resu lt from 100 to 125 mg/dL suggests IMPAIRED HOMEOSTASIS per A.D.A. criteria. Neutrophils (Bld) [#/Vol] 5.1 10*3/uL 2.0-7.7 [facility] Neutrophils/100 WBC (Bld) 63.9 % 47-70 [facility] Potassium [Moles/Vol] 3.9 mmol/L 3.5-5.1 [facility] Protein [Mass/Vol] 7.9 g/dL 6.4-8.2 [facility] Sodium [Moles/Vol] 133 mmol/L 136-145 [facility] WBC (Bld) [#/Vol] 8.0 10*3/uL 4.4-11.0 [facility] Blood erythrocytes count (nu mber/volume)Ordered By: Dr. Snell on 06-15-2022 RBC (Bld) [#/Vol] 4.41 10*6/uL 4.2-5.4 [facility] Blood hemoglobin measurement (mass/volume)Ordered By: Dr. Snell on 06-15-2022 Hemoglobin (Bld) [Mass/Vol] 14.4 g/dL 12.0-15.0 [facility] Blood lymphocytes/100 leukoc ytesOrdered By: Dr. Snell on 06-15-2022 Lymphocytes/100 WBC (Bld) 25.4 % 19-41 [facility] Blood monocytes/100 leukocyt esOrdered By: Dr. Snell on 06-15-2022 Monocytes/100 WBC (Bld) 7.0 % 0-10 [facility] Blood platelet mean volumeOr dered By: Dr. Snell on 06-15-2022 Platelet mean volume (Bld) [Entitic vol] 10.0 fL 6.2-12.0 [facility] Determination of erythrocyte mean corpuscular volume (MCV)Ordered By: Dr. Snell on 06-15-2022 MCV (RBC) [Entitic vol] 93.0 fL 81-99 [facility] Hematocrit Auto (Bld) [Volum e fraction]Ordered By: Dr. Snell on 06-15-2022 Hematocrit (Bld) [Volume fraction] 41.0 % 37-47 [facility] Laboratory - Chemistry and C hemistry - challengeOrdered By: Dr. Snell on 06-15-2022 ALP [Catalytic activity/Vol] 83 U/L 45-117 [facility] ALT [Catalytic activity/Vol] 19 U/L 13-56 [facility] CO2 [Moles/Vol] 28.0 mmol/L 21.0-32.0 [facility] Globulin (S) [Mass/Vol] 3.6 g/dL 2.2-4.2 [facility] Urea nitrogen/Creatinine [Mass ratio] 11.5 mg/mg 10-20 [facility] Laboratory - Hematology and Cell countsOrdered By: Dr. Snell on 06-15-2022 Erythrocyte distribution width (RBC) [Entitic vol] 43.8 fL 35.1-43.9 [facility] Erythrocyte distribution width (RBC) [Ratio] 12.7 % 11.6-14.6 [facility] Immature granulocytes/100 WBC (Bld) 0.300 % 0.0-0.9 [facility] Comment on above: IG% - Immature Granu locytes (promyelocytes, myelocytes and metamyelocytes) > 1% indicates that a LEFT SHIFT is Present. MCH (RBC) [Entitic mass] 32.7 pg 27.0-32.0 [facility] Nucleated RBC/100 WBC (Bld) [Ratio] 0 % 0-5 [facility] MCHC Auto (RBC) [Mass/Vol]Or dered By: Dr. Snell on 06-15-2022 MCHC (RBC) [Mass/Vol] 35.1 g/dL 32-36 [facility] No Panel InformationOrdered By: Dr. Snell on 06-15-2022 Estimated GFR (MDRD) Amer 57 mL/min >60 [facility] Comment on above: GFR Calc Estimated GFR (MDRD) Non-Af Amer 47 mL/min >60 [facility] Comment on above: Non- GFR Calc Platelets bldOrdered By: Dr. Snell on 06-15-2022 Platelets (Bld) [#/Vol] 381 10*3/uL 150-450 [facility] Serum or plasma albumin chace urement (mass/volume)Ordered By: Dr. Snell on 06-15-2022 Albumin [Mass/Vol] 4.3 g/dL 3.2-5.0 [facility] Serum or plasma albumin/glob ulin mass ratioOrdered By: Dr. Snell on 06-15-2022 Albumin/Globulin [Mass ratio] 1.2 {ratio} 0.9-2.4 [facility] Serum or plasma calcium chace urement (mass/volume)Ordered By: Dr. Snell on 06-15-2022 Calcium [Mass/Vol] 9.5 mg/dL 8.5-10.1 [facility] Serum or plasma creatinine m easurement (mass/volume)Ordered By: Dr. Snell on 06-15-2022 Creatinine [Mass/Vol] 1.22 mg/dL 0.55-1.02 [facility] Comment on above: The validity of the calculated GFR & GFRAA in patients over 70 years has not been determined. Clinical correlation is essential. Serum or plasma urea nitroge n measurement (mass/volume)Ordered By: Dr. Snell on 06-15-2022 Urea nitrogen [Mass/Vol] 14 mg/dL 7-18 [facility] Thin prep Papanicolaou smear with manual screeningOrdered By: Dr. Snell on 06-15-2022 Thin prep Papanicolaou smear with manual screening 14 U/L 15-37 [facility] Thin prep Papanicolaou smear with manual screening 9 5-15 [facility] Absolute lymphocyte countOrd ered By: Dr. Snell on 04-07-2022 Lymphocytes Auto (Unsp spec) [#/Vol] 1.90 10*3/uL 0.83-4.51 [facility] Basophil percentageOrdered B y: Dr. Snell on 04-07-2022 Basophils/100 WBC (Bld) 0.6 % 0-1 [facility] Bilirubin [Mass/Vol] 0.20 mg/dL 0.20-1.00 [facility] Comment on above: For patients on eltr ombopag therapy, use of Dimension [place] TBIL is not recommended. Chloride [Moles/Vol] 94 mmol/L 98-107 [facility] Cholesterol [Mass/Vol] 239 mg/dL <200 [facility] Comment on above: <200 mg/dL Desirable 200-240 mg/dL Borderline >240 mg/dL High Risk Eosinophils/100 WBC (Bld) 0.8 % 0-5 [facility] Glucose [Mass/Vol] 128 mg/dL 74-106 [facility] Comment on above: Fasting Glucose resu lt greater than or equal to 126 mg/dL suggests DIABETES MELLITUS per A.D.A. criteria. Neutrophils (Bld) [#/Vol] 8.3 10*3/uL 2.0-7.7 [facility] Neutrophils/100 WBC (Bld) 75.8 % 47-70 [facility] Potassium [Moles/Vol] 3.7 mmol/L 3.5-5.1 [facility] Protein [Mass/Vol] 7.3 g/dL 6.4-8.2 [facility] Sodium [Moles/Vol] 131 mmol/L 136-145 [facility] Triglyceride [Mass/Vol] 201 mg/dL <199 [facility] Comment on above: The drugs N-Acetylcy steine and Metamizole may falsely depress this assay.Serum Triglycerides Reference Interval Normal <150 mg/dL Borderline high 150 - 199 mg/dL High 200 - 499 mg/dL Very High > or = 500 mg/dL WBC (Bld) [#/Vol] 10.9 10*3/uL 4.4-11.0 [facility] Blood erythrocytes count (nu mber/volume)Ordered By: Dr. Snell on 04-07-2022 RBC (Bld) [#/Vol] 4.17 10*6/uL 4.2-5.4 [facility] Blood hemoglobin measurement (mass/volume)Ordered By: Dr. Snell on 04-07-2022 Hemoglobin (Bld) [Mass/Vol] 13.2 g/dL 12.0-15.0 [facility] Blood lymphocytes/100 leukoc ytesOrdered By: Dr. Snell on 04-07-2022 Lymphocytes/100 WBC (Bld) 17.4 % 19-41 [facility] Blood monocytes/100 leukocyt esOrdered By: Dr. Snell on 04-07-2022 Monocytes/100 WBC (Bld) 5.1 % 0-10 [facility] Blood platelet mean volumeOr dered By: Dr. Snell on 04-07-2022 Platelet mean volume (Bld) [Entitic vol] 9.6 fL 6.2-12.0 [facility] Determination of erythrocyte mean corpuscular volume (MCV)Ordered By: Dr. Snell on 04-07-2022 MCV (RBC) [Entitic vol] 95.0 fL 81-99 [facility] Hematocrit Auto (Bld) [Volum e fraction]Ordered By: Dr. Snell on 04-07-2022 Hematocrit (Bld) [Volume fraction] 39.6 % 37-47 [facility] Laboratory - Chemistry and C hemistry - challengeOrdered By: Dr. Snell on 04-07-2022 ALP [Catalytic activity/Vol] 84 U/L 45-117 [facility] ALT [Catalytic activity/Vol] 19 U/L 13-56 [facility] CO2 [Moles/Vol] 28.0 mmol/L 21.0-32.0 [facility] Globulin (S) [Mass/Vol] 3.3 g/dL 2.2-4.2 [facility] Urea nitrogen/Creatinine [Mass ratio] 17.8 mg/mg 10-20 [facility] Laboratory - Hematology and Cell countsOrdered By: Dr. Snell on 04-07-2022 Erythrocyte distribution width (RBC) [Entitic vol] 46.5 fL 35.1-43.9 [facility] Erythrocyte distribution width (RBC) [Ratio] 13.2 % 11.6-14.6 [facility] Immature granulocytes/100 WBC (Bld) 0.300 % 0.0-0.9 [facility] Comment on above: IG% - Immature Granu locytes (promyelocytes, myelocytes and metamyelocytes) > 1% indicates that a LEFT SHIFT is Present. MCH (RBC) [Entitic mass] 31.7 pg 27.0-32.0 [facility] Nucleated RBC/100 WBC (Bld) [Ratio] 0 % 0-5 [facility] MCHC Auto (RBC) [Mass/Vol]Or dered By: Dr. Snell on 04-07-2022 MCHC (RBC) [Mass/Vol] 33.3 g/dL 32-36 [facility] No Panel InformationOrdered By: Dr. Snell on 04-07-2022 Estimated GFR (MDRD) Amer 71 mL/min >60 [facility] Comment on above: GFR Calc Estimated GFR (MDRD) Non-Af Amer 59 mL/min >60 [facility] Comment on above: Non- GFR Calc Thyroid Stimulating Hormone (TSH) 0.60 uIU/mL 0.358-3.74 [facility] Vitamin D 25-Hydroxy 36.8 ng/mL [facility] Comment on above: Vitamin D 25(OH) Sta tus Range Deficiency <20 ng/mL (50nmol/L) Insufficiency 20 - 30 ng/mL (50 - 75 nmol/L) Sufficiency 30 - 100 ng/mL (75 - 250 nmol/L) Toxicity >100 ng/mL (>250 nmol/L) Platelets bldOrdered By: Dr. Snell on 04-07-2022 Platelets (Bld) [#/Vol] 422 10*3/uL 150-450 [facility] Serum or plasma albumin chace urement (mass/volume)Ordered By: Dr. Snell on 04-07-2022 Albumin [Mass/Vol] 4.0 g/dL 3.2-5.0 [facility] Serum or plasma albumin/glob ulin mass ratioOrdered By: Dr. Snell on 04-07-2022 Albumin/Globulin [Mass ratio] 1.2 {ratio} 0.9-2.4 [facility] Serum or plasma calcium chace urement (mass/volume)Ordered By: Dr. Snell on 04-07-2022 Calcium [Mass/Vol] 8.9 mg/dL 8.5-10.1 [facility] Serum or plasma cholesterol in HDL measurement (mass/volume)Ordered By: Dr. Snell on 04-07-2022 Cholesterol in HDL [Mass/Vol] 40 mg/dL >40 [facility] Comment on above: The drugs N-Acetylcy steine and Metamizole may falsely depress this assay. Reference Range HDL <40 mg/dL Low HDL Cholesterol HDL >or= 60 mg/dL High HDL Cholesterol Serum or plasma cholesterol in VLDL measurement (mass/volume)Ordered By: Dr. Snell on 04-07-2022 Cholesterol in VLDL [Mass/Vol] 40 mg/dL 5-40 [facility] Serum or plasma creatinine m easurement (mass/volume)Ordered By: Dr. Snell on 04-07-2022 Creatinine [Mass/Vol] 1.01 mg/dL 0.55-1.02 [facility] Comment on above: The validity of the calculated GFR & GFRAA in patients over 70 years has not been determined. Clinical correlation is essential. Serum or plasma low density lipoprotein (LDL) cholesterol measurement (mass/volume)Ordered By: Dr. Snell on 04-07-2022 Cholesterol in LDL [Mass/Vol] 159 mg/dL 0-130 [facility] Serum or plasma urea nitroge n measurement (mass/volume)Ordered By: Dr. Snell on 04-07-2022 Urea nitrogen [Mass/Vol] 18 mg/dL 7-18 [facility] Thin prep Papanicolaou smear with manual screeningOrdered By: Dr. Snell on 04-07-2022 Thin prep Papanicolaou smear with manual screening 14 U/L 15-37 [facility] Thin prep Papanicolaou smear with manual screening 9 5-15 [facility] CNOVon 03-23-2022 CNOV Office Visit ([facility] -- NAVIN AUGUST ([id number]) 1960 F Date Time Provider Department 03/23/22 2:45 PM NELSY CHAUDHARI During your visit today, we recorded the following information about you: Temperature Pulse Respiration Blood pressure 97.7 degrees 86/minute 18/minute 145/68 Nelsy Chaudhari PA-C 03/23/2022 3:10 PM Signed This note was created using MONOCO. Subjective Navin August is a 62 year [...] Hours Hours Frequency Intermittent Intermittent Intervention/Comfort measure Medication;Relaxation;Cold ;Heat;Pillow support;Positioning Medication;Relaxation;Cold ;Heat;Pillow support;Positioning Comments - - HPI Review of [...] will defer addressing her knee issues until (more content not included)... [facility] CNOVon 02-09-2022 CNOV Office Visit (ANDRES ) -- NAVIN AUGUST ([id number]) 1960 F Date Time Provider Department 02/09/22 2:45 PM NELSY CHAUDHARI During your visit today, we recorded the following information about you: Temperature Pulse Respiration Blood pressure 97.3 degrees 98/minute 18/minute 138/76 Nelsy Chaudhari PA-C 02/09/2022 3:27 PM Signed This note was created using MONOCO. Subjective Navin August is a 61 year [...] - - Frequency Continuous Continuous Intervention/Comfort measure Medication;Relaxation;Heat ;Cold;Pillow support;Positioning Medication;Relaxation;Cold ;Heat;Pillow support;Positioning Comments - - HPI Review of [...] We will defer addressing her knee issues unt (more content not included)... [facility] (ANDRES ) -- NAVIN AUGUST ([id number]) 1960 F Date Time Provider Department 12/29/21 2:45 PM NEFTALY COKER [facility] During your visit today, we recorded the following information about you: Temperature Pulse Respiration Blood pressure 97.5 degrees 103/minute 20/minute 143/93 Weight Height 20.9 kg 1.499 m Neftaly Coker MD 12/30/2021 3:33 PM Signed This note was created using [employer]ak[employer]. Subjective Navin August is a 61 year [...] (Temporal) Resp 20 Ht 149.9 cm (4' 11) Wt 20.9 kg (46 lb) LMP 01/12/2008 [...] recognition software and may contain minor errors. MD Neftaly Dutta MD 12/29/2021 3:14 PM Signed The patient will continue with fentanyl patch. She will be switched from tizanidine to methocarbamol. She was encouraged to use her TENS unit. Patient was encouraged to keep her self physically active, str (more content not included)... [facility] 12-29-2021 SAEED Telephone (PAMMJK) -- NAVIN AUGUST ([id number]) 1960 F Date Time Provider Department 12/29/21 NEFTALY COKER During your visit today, we recorded the following information about you: Liliana Graham RN 12/30/2021 11:34 AM Signed OARRS checked prior to setting up fentanyl refill from office visit 12/29/21. Noted 2 fentanyl 50 mcg patches were filled from [facility] in [place] on 12/26/21. I spoke with Navin and she states she filled them after an emergency room visit for a fall 12/25/21 She states she had low sodium and also she was short 2 fentanyl patches. Due to not wanting her to go through withdrawal, they gave her enough patches to make it until her 12/29/21 office visit I did notify Dr. Coker. He was not told this information at her office visit although Navin's daughter states she tried to talk about the ED visit. Dr Coker ordered no early refills. I spoke with Navin's daughter and she is extremely concerned that her mother is going to have severe symptoms of withdrawal She states her body does not tolerate withdrawal from opiates She has experienced withdrawal in the past which included jerking, inability to walk and talk and function. Dr. Coker notified and ordered clonidine 0.1 mg bid prn I did speak with both Navin and her daughter and informed them of both Her fentanyl will fill 01/02/22 and the clonidine was sent to use with caution I instructed them of the potential of low blood pressure and to closely monitor. She was instructed to change positions slowly and seek emergency treatment for any concerning symptoms or other concerns Liliana Graham RN December 30, 2021 11:29 AM Liliana Graham RN 12/30/2021 1:16 PM Signed I did follow up with Navin and her daughter this morning and reviewed cautions related to clonidine and potential withdrawal symptoms. In addition, we discussed the significant safety concerns with combination of clonazepam and fentanyl patch. Navin states she would like to talk about weaning off fentanyl at her 02/09/22 office visit with Melanie ADAMS This was confirmed by her daughter as well Liliana Graham RN December 30, 2021 1:15 PM Allergies As of Date: 12/29/2021 Noted Allergy Reaction NEURONTIN (GABAPENTIN) 01/31/2013 2 - Rash Date Reviewed: 12/29/2021 Reviewed by: Neftaly Coker MD - Fully Assessed Reason for Visit: Medication Problem [65] Prescriptions as of 12/30/2021 - cloNIDine HCl (CATAPRES) 0.1 mg tablet Take 1 tablet by mouth twice daily for 2 days. Take for symptoms of opiate withdrawal until fentanyl prescription due to fill - fentaNYL (DURAGESIC) 50 mcg/hr APPLY 1 PATCH TO SKIN EVERY OTHER DAY DIRECTED Do not start before January 02, 2022. - hydrOXYzine HCl (ATARAX) 25 mg tablet take 1/2 to 3 tablets by mouth daily if needed - benztropine (COGENTIN) 0.5 mg tablet take 1 tablet by mouth twice a day if needed for MUSCLE TWITCHING - lamoTRIgine (LAMICTAL) 200 mg tablet Take 400 mg by mouth once daily. - sertraline (ZOLOFT) 100 mg tablet Zoloft 100 mg tablet - pantoprazole DR (PROTONIX) 40 mg tablet pantoprazole 40 mg tablet,delayed release (DR/EC) - tiZANidine (ZANAFLEX) 4 mg tablet Take 4 mg by mouth three times daily as needed. - oxyCODONE-acetaminophen (PERCOCET) 5-325 mg tablet Take 1 tablet by mouth every 8 hours as needed. - Levothyroxine 25 mcg cap Take 1 tablet by mouth once daily. - cholecalciferol (VITAMIN D3) 1,000 unit tab tablet Take 1,000 Units by mouth once daily. - meloxicam (MOBIC) 7.5 mg tablet Take 1 tablet by mouth once daily. - duloxetine hcl(CYMBALTA 60 MG CAP) Take two tablet daily. - clonazepam(KLONOPIN 1 MG TAB) Take one(1) tablet daily at bedtime as needed. - MULTIVITAMIN TAB Take one(1) tablet daily. 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] Other, Mixed, or Unspecified Nondependent Drug * HEADACHE [R51] MYALGIA AND MYOSITIS NOS [[id number]] Abnormal Weight Gain [R63.5] 05/19/2007 01/15/2010 PERS HX TOBACCO USE [Z87.891] 05/19/2007 Unspecified Sleep Apnea [G47.30] 12/28/2007 SLEEP DISTURBANCE NOS [G47.9] 12/28/2007 GENERAL OSTEOARTHROSIS [M15.9] 01/01/2008 Pain in joint, lower leg [M25.569] 01/01/2008 12/29/2021 DEPRESSIVE DISORDER NEC [F32.89] 01/01/2008 Chronic pain [G89.29] 01/14/2009 Other and Unspecified Hyperlipidemia [E78.5] 01/15/2010 Tobacco Use Disorder [F17.200] 01/15/2010 Symptomatic menopausal or female climacteric st*01/31/2013 Chronic back pain [M54.9, G89.29] 01/30/2015 12/29/2021 Degeneration of intervertebral disc of cervical*08/18/2017 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 Normal [facility] .Auto Diffon 12-26-2021 Basophil, Absolute 0.1 10 3/mcL Normal 0.0-0.2 [facility] ([place]) Comment on above: Performed By: #### T OXSC UA #### [address] [address] Basophils/100 WBC (Bld) 1.1 % Normal 0.0-2.5 A [facility] ([place]) Comment on above: Performed By: #### T OXSC UA #### [address] [address] Eosinophil, Absolute 0.2 10 3/mcL Normal 0.0-0.4 [facility] ([place]) Comment on above: Performed By: #### T OXSC, UA #### Gabriela [address] [address] Eosinophils/100 WBC (Bld) 3.2 % Normal 0.0-7.0 [facility] ([place]) Comment on above: Performed By: #### T OXSC, UA #### Gabriela [address] [address] Lymphocyte, Absolute 2.4 10 3/mcL Normal 0.8-3.9 [facility] ([place]) Comment on above: Performed By: #### T OXSC, UA #### Gabriela [address] [address] Lymphocytes/100 WBC (Bld) 37.9 % Normal 10.0-50.0 [facility] ([place]) Comment on above: Performed By: #### T OXSC, UA #### [address] [address] Monocyte, Absolute 0.6 10 3/mcL Normal 0.2-1.0 [facility] ([place]) Comment on above: Performed By: #### T OXSC, UA #### [address] [address] Monocytes/100 WBC (Bld) 9.4 % Normal 1.7-13.0 [facility] ([place]) Comment on above: Performed By: #### T OXSC, UA #### Gabriela [address] [address] Neutrophils/100 WBC (Bld) 48.4 % Normal 37.0-80.0 [facility] ([place]) Comment on above: Performed By: #### T OXSC, UA #### [address] [address] .GFRon 12-26-2021 GFR 79 ml/min/1.73sqm Normal [facility] ([place]) Comment on above: Result Comment: GFR Population mean for , Non- Americans Ages 20-29 = 116 mL/min/1.73 sq.m. Ages 30-39 = 107 mL/min/1.73 sq.m. Ages 40-49 = 99 mL/min/1.73 sq.m. Ages 50-59 = 93 mL/min/1.73 sq.m. Ages 60-69 = 85 mL/min/1.73 sq.m. Ages 70+ = 75 mL/min/1.73 sq.m. Chronic Kidney Disease: Less than 60 mL/min/1.73 square meters End Stage Renal Disease: Less than 15 mL/min/1.73 square meters Performed By: #### G FR, CMP #### [address] [address] GFR Non- 65 ml/min/1.73sqm Normal [facility] ([place]) Comment on above: Result Comment: GFR Population mean for , Non- Americans Ages 20-29 = 116 mL/min/1.73 sq.m. Ages 30-39 = 107 mL/min/1.73 sq.m. Ages 40-49 = 99 mL/min/1.73 sq.m. Ages 50-59 = 93 mL/min/1.73 sq.m. Ages 60-69 = 85 mL/min/1.73 sq.m. Ages 70+ = 75 mL/min/1.73 sq.m. Chronic Kidney Disease: Less than 60 mL/min/1.73 square meters End Stage Renal Disease: Less than 15 mL/min/1.73 square meters Performed By: #### G FR, CMP #### [address] [address] .MDWon 12-26-2021 Monocyte Distribution Width Not performed Normal 0.00-20.00 [facility] ([place]) Comment on above: Result Comment: MDW testing performed only on adult ER patients between the ages of 18-89 years. Performed By: #### T OXSC, UA #### [address] [address] .NEUABSon 12-26-2021 Neutrophil, Absolute 3.1 10 3/mcL Normal 2.9-6.2 [facility] ([place]) Comment on above: Performed By: #### T OXSC, UA #### Gabriela [address] [address] A1Con 08-12-2022 HbA1c (Bld) [Mass fraction] 5.8 % Normal 4.3-6.4 [facility] ([place]) Comment on above: Performed By: #### G FR, CMP #### [address] [address] BMPon 12-26-2021 BUN/Creatinine Ratio 6 ratio Low 7-27 [facility] ([place]) Comment on above: Performed By: #### T OXSC, UA #### [address] [address] Calcium [Mass/Vol] 8.7 mg/dL Normal 8.4-10.2 [facility] ([place]) Comment on above: Performed By: #### T OXSC, UA #### [address] [address] Chloride [Moles/Vol] 102 mmol/L Normal 98-107 [facility] ([place]) Comment on above: Performed By: #### T OXSC, UA #### [address] [address] CO2 [Moles/Vol] 30 mmol/L Normal 23-31 [facility] ([place]) Comment on above: Performed By: #### T OXSC, UA #### [address] [address] Creatinine [Mass/Vol] 0.88 mg/dL Normal 0.55-1.02 Counts include 234 beds at the [facility] ([place]) Comment on above: Performed By: #### T OXSC, UA #### [address] [address] Electrolyte Balance 7.0 mEq/L Normal 4.0-15.0 [facility] ([place]) Comment on above: Performed By: #### T OXSC, UA #### [address] [address] Glucose [Mass/Vol] 90 mg/dL Normal 80-115 [facility] ([place]) Comment on above: Performed By: #### T OXSC, UA #### [address] [address] Potassium [Moles/Vol] 4.3 mmol/L Normal 3.5-5.1 Counts include 234 beds at the [facility] ([place]) Comment on above: Performed By: #### PRATEEK CORRAL #### Gabriela [address] [address] Sodium [Moles/Vol] 139 mmol/L Normal 136-145 [facility] ([place]) Comment on above: Performed By: #### PRATEEK CORRAL #### Gabriela [address] [address] Urea nitrogen [Mass/Vol] 5 mg/dL Low 7-18 [facility] ([place]) Comment on above: Performed By: #### PRATEEK CORRAL #### Gabriela [address] [address] CBCon 12-26-2021 Erythrocyte distribution width (RBC) [Ratio] 12.7 % Normal 11.5-14.5 [facility] ([place]) Comment on above: Performed By: #### PRATEEK CORRAL #### Gabriela [address] [address] Hematocrit (Bld) [Volume fraction] 38.2 % Normal 37.0-47.0 [facility] ([place]) Comment on above: Performed By: #### PRATEEK CORRAL #### Gabriela [address] [address] Hgb 13.3 G/dL Normal 12.0-16.0 [facility] ([place] Comment on above: Performed By: #### PRATEEK CORRAL #### Gabriela [address] [address] MCH (RBC) [Entitic mass] 33.2 pg High 27.0-31.2 [facility] ([place]) Comment on above: Performed By: #### Hua WHITTEN UA #### Gabriela [address] [address] MCHC 34.7 G/dL Normal 33.0-37.0 [facility] ([place]) Comment on above: Performed By: #### Hua WHITTEN UA #### [address] [place], [place] [address] MCV (RBC) [Entitic vol] 95.6 fL High 80.0-94.0 A [facility] ([place]) Comment on above: Performed By: #### T OXJEANNA, UA #### [address] [place], [place] [address] Platelet 418 10 3/mcL High 130-400 [facility] ([place]) Comment on above: Performed By: #### T FISH, UA #### [id number] [place], [place] [address] Platelet mean volume (Bld) [Entitic vol] 6.8 fL Low 7.4-10.4 [facility] ([place]) Comment on above: Performed By: #### T FISH, UA #### Gabriela [address] [address] RBC 4.00 10 6/mcL Low 4.20-5.40 [facility] ([place]) Comment on above: Performed By: #### T OXJEANNA, UA #### Gabriela [address] [address] WBC 6.3 10 3/mcL Normal 4.6-10.8 [facility] ([place]) Comment on above: Performed By: #### T FISH, UA #### Gabriela [address] [address] LABORATORYOrdered By: Radha Padgett on 12-26-2021 Basophil, Absolute 0.1 103/mcL Invalid Interpretation Code 0.0 - 0.2 10^3/mcL AO Workflow SS Basophils/100 WBC (Bld) 1.1 % Invalid Interpretation Code 0.0 - 2.5 % AO Workflow SS Calcium [Mass/Vol] 8.7 mg/dL Invalid Interpretation Code 8.4 - 10.2 mg/dL AO ADM SS Chloride [Moles/Vol] 102 mmol/L Invalid Interpretation Code 98 - 107 mmol/L AO ADM SS CO2 [Moles/Vol] 30 mmol/L Invalid Interpretation Code 23 - 31 mmol/L AO ADM SS Creatinine [Mass/Vol] 0.88 mg/dL Invalid Interpretation Code 0.55 - 1.02 mg/dL AO ADM SS Electrolyte Balance 7.0 mEq/L Invalid Interpretation Code 4.0 - 15.0 mEq/L AO ADM SS Eosinophil, Absolute 0.2 103/mcL Invalid Interpretation Code 0.0 - 0.4 10^3/mcL AO Workflow SS Eosinophils/100 WBC (Bld) 3.2 % Invalid Interpretation Code 0.0 - 7.0 % AO Workflow SS Erythrocyte distribution width (RBC) [Ratio] 12.7 % Invalid Interpretation Code 11.5 - 14.5 % AO Workflow SS Glucose [Mass/Vol] 90 mg/dL Invalid Interpretation Code 80 - 115 mg/dL AO ADM SS HbA1c (Bld) [Mass fraction] 5.8 % Invalid Interpretation Code 4.3 - 6.4 % AO ADM SS Hematocrit (Bld) [Volume fraction] 38.2 % Invalid Interpretation Code 37.0 - 47.0 % AO Workflow SS Hemoglobin (Bld) [Mass/Vol] 13.3 G/dL Invalid Interpretation Code 12.0 - 16.0 G/dL AO Workflow SS Lymphocyte, Absolute 2.4 103/mcL Invalid Interpretation Code 0.8 - 3.9 10^3/mcL AO Workflow SS Lymphocytes/100 WBC (Bld) 37.9 % Invalid Interpretation Code 10.0 - 50.0 % AO Workflow SS Magnesium [Mass/Vol] 2.0 mg/dL Invalid Interpretation Code 1.8 - 2.4 mg/dL AO ADM SS MCH (RBC) [Entitic mass] 33.2 pg Invalid Interpretation Code 27.0 - 31.2 pg AO Workflow SS MCHC 34.7 G/dL Invalid Interpretation Code 33.0 - 37.0 G/dL AO Workflow SS MCV (RBC) [Entitic vol] 95.6 fL Invalid Interpretation Code 80.0 - 94.0 fL AO Workflow SS Monocyte, Absolute 0.6 103/mcL Invalid Interpretation Code 0.2 - 1.0 10^3/mcL AO Workflow SS Monocytes/100 WBC (Bld) 9.4 % Invalid Interpretation Code 1.7 - 13.0 % AO Workflow SS Neutrophil, Absolute 3.1 103/mcL Invalid Interpretation Code 2.9 - 6.2 10^3/mcL AO Workflow SS Neutrophils/100 WBC (Bld) 48.4 % Invalid Interpretation Code 37.0 - 80.0 % AO Workflow SS Platelet mean volume (Bld) [Entitic vol] 6.8 fL Invalid Interpretation Code 7.4 - 10.4 fL AO Workflow SS Platelets (Bld) [#/Vol] 418 103/mcL Invalid Interpretation Code 130 - 400 10^3/mcL AO Workflow SS Potassium [Moles/Vol] 4.3 mmol/L Invalid Interpretation Code 3.5 - 5.1 mmol/L AO ADM SS RBC (Bld) [#/Vol] 4.00 106/mcL Invalid Interpretation Code 4.20 - 5.40 10^6/mcL AO Workflow SS Sodium [Moles/Vol] 139 mmol/L Invalid Interpretation Code 136 - 145 mmol/L AO ADM SS TSH Qn 1.35 m[IU]/L Invalid Interpretation Code 0.36 - 3.74 mcIU/mL AO Chemistry S Urea nitrogen [Mass/Vol] 5 mg/dL Invalid Interpretation Code 7 - 18 mg/dL AO ADM SS Urea nitrogen/Creatinine [Mass ratio] 6 ratio Invalid Interpretation Code 7 - 27 ratio AO ADM SS WBC 6.3 103/mcL Invalid Interpretation Code 4.6 - 10.8 10^3/mcL AO Workflow SS LABORATORYOrdered By: SYSTEM SYSTEM on 12-26-2021 GFR 79 ml/min/1.73sqm Invalid Interpretation Code AO Chemistry S GFR Non- 65 ml/min/1.73sqm Invalid Interpretation Code AO Chemistry S Monocyte distribution width Auto (Bld) [Entitic vol] Not Performed 1 *NA* (12/26/21 5:27 AM) Invalid Interpretation Code 0.00 - 20.00 AO Hematology S Comment on above: Result Comment: MDW testing performed only on adult ER patients between the ages of 18-89 years. MGon 12-26-2021 Magnesium [Mass/Vol] 2.0 mg/dL Normal 1.8-2.4 [facility] ([place]) Comment on above: Performed By: #### T OXSC, UA #### [address] [address] OSMOUon 12-26-2021 U Osmolality 104 mOsm/kg Low 390-1090 [facility] ([place]) Comment on above: Performed By: #### G FR, CMP #### [address] [address] TSHon 12-26-2021 TSH Qn 1.35 m[IU]/L Normal 0.36-3.74 [facility] ([place]) Comment on above: Performed By: #### G FR, CMP #### [address] [address] .Auto Diffon 12-25-2021 Basophil, Absolute 0.1 10 3/mcL Normal 0.0-0.2 [facility] ([place]) Comment on above: Performed By: #### T OXSC, UA #### [address] [address] Basophils/100 WBC (Bld) 1.2 % Normal 0.0-2.5 A [facility] ([place]) Comment on above: Performed By: #### T OXSC, UA #### [address] [address] Eosinophil, Absolute 0.1 10 3/mcL Normal 0.0-0.4 [facility] ([place]) Comment on above: Performed By: #### T OXSC, UA #### [address] [address] Eosinophils/100 WBC (Bld) 0.7 % Normal 0.0-7.0 [facility] ([place] Comment on above: Performed By: #### T OXSC, UA #### [address] [address] Lymphocyte, Absolute 1.5 10 3/mcL Normal 0.8-3.9 [facility] ([place]) Comment on above: Performed By: #### T OXSC, UA #### Gabriela [address] [address] Lymphocytes/100 WBC (Bld) 17.7 % Normal 10.0-50.0 [facility] ([place]) Comment on above: Performed By: #### T OXSC, UA #### [address] [address] Monocyte, Absolute 0.5 10 3/mcL Normal 0.2-1.0 [facility] ([place]) Comment on above: Performed By: #### T OXSC, UA #### [address] [address] Monocytes/100 WBC (Bld) 5.9 % Normal 1.7-13.0 A [facility] ([place]) Comment on above: Performed By: #### T OXSC, UA #### [address] [address] Neutrophils/100 WBC (Bld) 74.5 % Normal 37.0-80.0 [facility] ([place]) Comment on above: Performed By: #### T OXSC, UA #### [address] [address] .GFRon 12-25-2021 GFR 78 ml/min/1.73sqm Normal [facility] ([place]) Comment on above: Result Comment: GFR Population mean for , Non- Americans Ages 20-29 = 116 mL/min/1.73 sq.m. Ages 30-39 = 107 mL/min/1.73 sq.m. Ages 40-49 = 99 mL/min/1.73 sq.m. Ages 50-59 = 93 mL/min/1.73 sq.m. Ages 60-69 = 85 mL/min/1.73 sq.m. Ages 70+ = 75 mL/min/1.73 sq.m. Chronic Kidney Disease: Less than 60 mL/min/1.73 square meters End Stage Renal Disease: Less than 15 mL/min/1.73 square meters Performed By: #### G FR, CMP #### [address] [address] GFR Non- 64 ml/min/1.73sqm Normal [facility] ([place]) Comment on above: Result Comment: GFR Population mean for , Non- Americans Ages 20-29 = 116 mL/min/1.73 sq.m. Ages 30-39 = 107 mL/min/1.73 sq.m. Ages 40-49 = 99 mL/min/1.73 sq.m. Ages 50-59 = 93 mL/min/1.73 sq.m. Ages 60-69 = 85 mL/min/1.73 sq.m. Ages 70+ = 75 mL/min/1.73 sq.m. Chronic Kidney Disease: Less than 60 mL/min/1.73 square meters End Stage Renal Disease: Less than 15 mL/min/1.73 square meters Performed By: #### G FR, CMP #### [address] [address] GFR Non- 58 ml/min/1.73sqm Normal [facility] ([place]) Comment on above: Result Comment: GFR Population mean for , Non- Americans Ages 20-29 = 116 mL/min/1.73 sq.m. Ages 30-39 = 107 mL/min/1.73 sq.m. Ages 40-49 = 99 mL/min/1.73 sq.m. Ages 50-59 = 93 mL/min/1.73 sq.m. Ages 60-69 = 85 mL/min/1.73 sq.m. Ages 70+ = 75 mL/min/1.73 sq.m. Chronic Kidney Disease: Less than 60 mL/min/1.73 square meters End Stage Renal Disease: Less than 15 mL/min/1.73 square meters Performed By: #### B MP, GFR #### [address] [address] GFR 70 ml/min/1.73sqm Normal [facility] ([place]) Comment on above: Result Comment: GFR Population mean for , Non- Americans Ages 20-29 = 116 mL/min/1.73 sq.m. Ages 30-39 = 107 mL/min/1.73 sq.m. Ages 40-49 = 99 mL/min/1.73 sq.m. Ages 50-59 = 93 mL/min/1.73 sq.m. Ages 60-69 = 85 mL/min/1.73 sq.m. Ages 70+ = 75 mL/min/1.73 sq.m. Chronic Kidney Disease: Less than 60 mL/min/1.73 square meters End Stage Renal Disease: Less than 15 mL/min/1.73 square meters Performed By: #### B MP, GFR #### [address] [address] .MDWon 12-25-2021 Monocyte Distribution Width 15.85 Normal 0.00-20.00 [facility] ([place]) Comment on above: Result Comment: For ED adult patients suspected of sepsis, MDW<=20.0 does not rule out sepsis or risk of sepsis Performed By: #### T PRATEEK WHITTEN #### [address] [address] .NEUABSon 12-25-2021 Neutrophil, Absolute 6.4 10 3/mcL High 2.9-6.2 [facility] ([place]) Comment on above: Performed By: #### T FISH, UA #### [address] [address] BMPon 12-25-2021 BUN/Creatinine Ratio 4 ratio Low 7-27 [facility] ([place]) Comment on above: Performed By: #### G , CMP #### [address] [address] Calcium [Mass/Vol] 8.7 mg/dL Normal 8.4-10.2 [facility] ([place]) Comment on above: Performed By: #### G , CMP #### [address] [address] Chloride [Moles/Vol] 97 mmol/L Low 98-107 [facility] ([place] Comment on above: Performed By: #### G , CMP #### [address] [address] CO2 [Moles/Vol] 27 mmol/L Normal 23-31 [facility] ([place] Comment on above: Performed By: #### G FR, CMP #### [address] [address] Creatinine [Mass/Vol] 0.89 mg/dL Normal 0.55-1.02 Counts include 234 beds at the [facility] ([place]) Comment on above: Performed By: #### Bryce FR, CMP #### [address] [address] Electrolyte Balance 8.0 mEq/L Normal 4.0-15.0 [facility] ([place]) Comment on above: Performed By: #### Bryce HAINES, CMP #### [address] [address] Glucose [Mass/Vol] 96 mg/dL Normal 80-115 [facility] ([place]) Comment on above: Performed By: #### G FR, CMP #### [address] [address] Potassium [Moles/Vol] 4.0 mmol/L Normal 3.5-5.1 Counts include 234 beds at the [facility] ([place] Comment on above: Performed By: #### G FR, CMP #### [address] [address] Sodium [Moles/Vol] 132 mmol/L Low 136-145 [facility] ([place] Comment on above: Performed By: #### G FR, CMP #### [address] [address] Urea nitrogen [Mass/Vol] 4 mg/dL Low 7-18 [facility] ([place] Comment on above: Performed By: #### G FR, CMP #### [address] [address] BUN/Creatinine Ratio 4 ratio Low 7-27 [facility] ([place] Comment on above: Performed By: #### B MP, GFR #### [address] [address] Calcium [Mass/Vol] 9.6 mg/dL Normal 8.4-10.2 [facility] ([place] Comment on above: Performed By: #### B MP, GFR #### [address] [address] Chloride [Moles/Vol] 91 mmol/L Low 98-107 [facility] ([place] Comment on above: Performed By: #### B MP, GFR #### [address] [address] CO2 [Moles/Vol] 28 mmol/L Normal 23-31 [facility] ([place] Comment on above: Performed By: #### B MP, GFR #### [address] [address] Creatinine [Mass/Vol] 0.98 mg/dL Normal 0.55-1.02 Counts include 234 beds at the [facility] ([place] Comment on above: Performed By: #### B MP, GFR #### [address] [address] Electrolyte Balance 9.0 mEq/L Normal 4.0-15.0 [facility] ([place] Comment on above: Performed By: #### B MP, GFR #### [address] [address] Glucose [Mass/Vol] 116 mg/dL High 80-115 [facility] ([place] Comment on above: Performed By: #### B MP, GFR #### [address] [address] Potassium [Moles/Vol] 3.7 mmol/L Normal 3.5-5.1 Counts include 234 beds at the [facility] ([place] Comment on above: Performed By: #### B MP, GFR #### [address] [address] Sodium [Moles/Vol] 128 mmol/L Low 136-145 [facility] ([place] Comment on above: Performed By: #### B MP, GFR #### [address] [address] Urea nitrogen [Mass/Vol] 4 mg/dL Low 7-18 [facility] ([place] Comment on above: Performed By: #### B MP, GFR #### [address] [address] CBCon 12-25-2021 Erythrocyte distribution width (RBC) [Ratio] 12.7 % Normal 11.5-14.5 [facility] ([place]) Comment on above: Performed By: #### T OXSC, UA #### [address] [address] Hematocrit (Bld) [Volume fraction] 42.5 % Normal 37.0-47.0 [facility] ([place] Comment on above: Performed By: #### T OXSC, UA #### [address]riela [address] [address] Hgb 15.1 G/dL Normal 12.0-16.0 [facility] ([place]) Comment on above: Performed By: #### PRATEEK CORRAL #### [address]riela [address] [address] MCH (RBC) [Entitic mass] 33.5 pg High 27.0-31.2 [facility] ([place]) Comment on above: Performed By: #### T FISH UA #### [address] [address] MCHC 35.5 G/dL Normal 33.0-37.0 [facility] ([place]) Comment on above: Performed By: #### Hua WHITTEN UA #### [address] [address] MCV (RBC) [Entitic vol] 94.2 fL High 80.0-94.0 A [facility] ([place]) Comment on above: Performed By: #### Hua WHITTEN UA #### [address] [address] Platelet 530 10 3/mcL High 130-400 [facility] ([place]) Comment on above: Performed By: #### Hua WHITTEN UA #### [address] [address] Platelet mean volume (Bld) [Entitic vol] 6.5 fL Low 7.4-10.4 [facility] ([place]) Comment on above: Performed By: #### Hua WHITTEN UA #### [address] [address] RBC 4.52 10 6/mcL Normal 4.20-5.40 [facility] ([place]) Comment on above: Performed By: #### Hua WHITTEN, UA #### Gabriela [address] [address] WBC 8.6 10 3/mcL Normal 4.6-10.8 [facility] ([place]) Comment on above: Performed By: #### Hua WHITTEN, UA #### Gabriela [place] [address], [place] [address] CT HEAD OR BRAIN W/O CONTRAS Ton 12-25-2021 CT HEAD OR BRAIN W/O CONTRAST ORIGINAL EXAMINATION: CT OF THE HEAD WITHOUT [...] ventricles are normal for age. There are periventricular/subcortica l white matter hypodensities, nonspecific but statistically represent [...] 12/25/2021 12:16:50 PM Ordering Provider: KRYSTAL VALLADARES [facility] ([place]) LABORATORYOrdered By: Bridgette Hodgson on 12-25-2021 Osmolality (U) [Osmolality] 104 mosm/kg Invalid Interpretation Code 390 - 1090 mOsm/kg Manual Chem SS LABORATORYOrdered By: Nixon Hdez on 12-25-2021 Sodium (U) [Moles/Vol] 22 mmol/L Invalid Interpretation Code 20 - 110 mmol/L AO ADM SS LABORATORYOrdered By: Princess Shah on 12-25-2021 Calcium [Mass/Vol] 8.7 mg/dL Invalid Interpretation Code 8.4 - 10.2 mg/dL AO ADM SS Chloride [Moles/Vol] 97 mmol/L Invalid Interpretation Code 98 - 107 mmol/L AO ADM SS CO2 [Moles/Vol] 27 mmol/L Invalid Interpretation Code 23 - 31 mmol/L AO ADM SS Creatinine [Mass/Vol] 0.89 mg/dL Invalid Interpretation Code 0.55 - 1.02 mg/dL AO ADM SS Electrolyte Balance 8.0 mEq/L Invalid Interpretation Code 4.0 - 15.0 mEq/L AO ADM SS Glucose [Mass/Vol] 96 mg/dL Invalid Interpretation Code 80 - 115 mg/dL AO ADM SS Potassium [Moles/Vol] 4.0 mmol/L Invalid Interpretation Code 3.5 - 5.1 mmol/L AO ADM SS Sodium [Moles/Vol] 132 mmol/L Invalid Interpretation Code 136 - 145 mmol/L AO ADM SS Urea nitrogen [Mass/Vol] 4 mg/dL Invalid Interpretation Code 7 - 18 mg/dL AO ADM SS Urea nitrogen/Creatinine [Mass ratio] 4 ratio Invalid Interpretation Code 7 - 27 ratio AO ADM SS Amphetamines Screen Ql (U) Negative (12/25/21 11:10 AM) Invalid Interpretation Code AO Manual Urine SS Appearance (U) Clear (12/25/21 11:10 AM) Invalid Interpretation Code Clear AO Auto Urine SS Barbiturates Screen Ql (U) Negative (12/25/21 11:10 AM) Invalid Interpretation Code AO Manual Urine SS Benzodiazepines Ql (U) Negative (12/25/21 11:10 AM) Invalid Interpretation Code AO Manual Urine SS Benzoylecgonine Screen Ql (U) Negative (12/25/21 11:10 AM) Invalid Interpretation Code AO Manual Urine SS Bilirubin Ql (U) Negative (12/25/21 11:10 AM) Invalid Interpretation Code Negative AO Auto Urine SS Calcium [Mass/Vol] 9.6 mg/dL Invalid Interpretation Code 8.4 - 10.2 mg/dL AO ADM SS Cannabinoids tested Screen Nom (U) Negative (12/25/21 11:10 AM) Invalid Interpretation Code AO Manual Urine SS Chloride [Moles/Vol] 91 mmol/L Invalid Interpretation Code 98 - 107 mmol/L AO ADM SS CO2 [Moles/Vol] 28 mmol/L Invalid Interpretation Code 23 - 31 mmol/L AO ADM SS Color (U) Yellow (12/25/21 11:10 AM) Invalid Interpretation Code AO Auto Urine SS Creatinine [Mass/Vol] 0.98 mg/dL Invalid Interpretation Code 0.55 - 1.02 mg/dL AO ADM SS Electrolyte Balance 9.0 mEq/L Invalid Interpretation Code 4.0 - 15.0 mEq/L AO ADM SS Glucose [Mass/Vol] 116 mg/dL Invalid Interpretation Code 80 - 115 mg/dL AO ADM SS Glucose Test strip (U) [Mass/Vol] Negative Invalid Interpretation Code Negativemg /dL AO Auto Urine SS Hemoglobin Auto test strip (U) [Mass/Vol] Trace *ABN* (12/25/21 11:10 AM) Invalid Interpretation Code Negative AO Auto Urine SS Ketones Ql (U) Negative Invalid Interpretation Code Negativemg /dL AO Auto Urine SS Methadone Screen Ql (U) Negative (12/25/21 11:10 AM) Invalid Interpretation Code AO Manual Urine SS Opiates Screen Ql (U) Negative (12/25/21 11:10 AM) Invalid Interpretation Code AO Manual Urine SS Phencyclidine Ql (U) Negative (12/25/21 11:10 AM) Invalid Interpretation Code AO Manual Urine SS Potassium [Moles/Vol] 3.7 mmol/L Invalid Interpretation Code 3.5 - 5.1 mmol/L AO ADM SS Sodium [Moles/Vol] 128 mmol/L Invalid Interpretation Code 136 - 145 mmol/L AO ADM SS Tricyclic antidepressants Screen Ql (U) Positive (12/25/21 11:10 AM) Invalid Interpretation Code AO Manual Urine SS UA Leuk Est Negative (12/25/21 11:10 AM) Invalid Interpretation Code Negative AO Auto Urine SS UA Nitrite Negative (12/25/21 11:10 AM) Invalid Interpretation Code Negative AO Auto Urine SS UA pH 6.0 (12/25/21 11:10 AM) Invalid Interpretation Code 5.0 - 8.0 AO Auto Urine SS UA Protein Negative Invalid Interpretation Code Negativemg /dL AO Auto Urine SS UA Spec Grav 1.010 *ABN* (12/25/21 11:10 AM) Invalid Interpretation Code 1.015-1.02 5 AO Auto Urine SS UA Specimen Type Clean Catch (12/25/21 11:10 AM) Invalid Interpretation Code AO Auto Urine SS UA Urobilinogen 0.2 E.U./dL Invalid Interpretation Code 0.2-1.0E.U ./dL AO Auto Urine SS Urea nitrogen [Mass/Vol] 4 mg/dL Invalid Interpretation Code 7 - 18 mg/dL AO ADM SS Urea nitrogen/Creatinine [Mass ratio] 4 ratio Invalid Interpretation Code 7 - 27 ratio AO ADM SS LABORATORYOrdered By: SYSTEM SYSTEM on 12-25-2021 GFR 78 ml/min/1.73sqm Invalid Interpretation Code AO Chemistry S GFR Non- 64 ml/min/1.73sqm Invalid Interpretation Code AO Chemistry S GFR 70 ml/min/1.73sqm Invalid Interpretation Code AO Chemistry S GFR Non- 58 ml/min/1.73sqm Invalid Interpretation Code AO Chemistry S LABORATORYOrdered By: Mehrdad Diez on 12-25-2021 Osmolality [Osmolality] 263 mosm/kg Invalid Interpretation Code 275 - 300 mOsm/kg AH Manual Chem SS LABORATORYOrdered By: Kate Altman on 12-25-2021 Basophil, Absolute 0.1 103/mcL Invalid Interpretation Code 0.0 - 0.2 10^3/mcL AO Workflow SS Basophils/100 WBC (Bld) 1.2 % Invalid Interpretation Code 0.0 - 2.5 % AO Workflow SS Eosinophil, Absolute 0.1 103/mcL Invalid Interpretation Code 0.0 - 0.4 10^3/mcL AO Workflow SS Eosinophils/100 WBC (Bld) 0.7 % Invalid Interpretation Code 0.0 - 7.0 % AO Workflow SS Erythrocyte distribution width (RBC) [Ratio] 12.7 % Invalid Interpretation Code 11.5 - 14.5 % AO Workflow SS Hematocrit (Bld) [Volume fraction] 42.5 % Invalid Interpretation Code 37.0 - 47.0 % AO Workflow SS Hemoglobin (Bld) [Mass/Vol] 15.1 G/dL Invalid Interpretation Code 12.0 - 16.0 G/dL AO Workflow SS Lymphocyte, Absolute 1.5 103/mcL Invalid Interpretation Code 0.8 - 3.9 10^3/mcL AO Workflow SS Lymphocytes/100 WBC (Bld) 17.7 % Invalid Interpretation Code 10.0 - 50.0 % AO Workflow SS MCH (RBC) [Entitic mass] 33.5 pg Invalid Interpretation Code 27.0 - 31.2 pg AO Workflow SS MCHC 35.5 G/dL Invalid Interpretation Code 33.0 - 37.0 G/dL AO Workflow SS MCV (RBC) [Entitic vol] 94.2 fL Invalid Interpretation Code 80.0 - 94.0 fL AO Workflow SS Monocyte distribution width Auto (Bld) [Entitic vol] 15.85 Invalid Interpretation Code 0.00 - 20.00 AO Workflow SS Comment on above: Result Comment: For ED adult patients suspected of sepsis, MDW<=20.0 does not rule out sepsis or risk of sepsis Monocyte, Absolute 0.5 103/mcL Invalid Interpretation Code 0.2 - 1.0 10^3/mcL AO Workflow SS Monocytes/100 WBC (Bld) 5.9 % Invalid Interpretation Code 1.7 - 13.0 % AO Workflow SS Neutrophil, Absolute 6.4 103/mcL Invalid Interpretation Code 2.9 - 6.2 10^3/mcL AO Workflow SS Neutrophils/100 WBC (Bld) 74.5 % Invalid Interpretation Code 37.0 - 80.0 % AO Workflow SS Platelet mean volume (Bld) [Entitic vol] 6.5 fL Invalid Interpretation Code 7.4 - 10.4 fL AO Workflow SS Platelets (Bld) [#/Vol] 530 103/mcL Invalid Interpretation Code 130 - 400 10^3/mcL AO Workflow SS RBC (Bld) [#/Vol] 4.52 106/mcL Invalid Interpretation Code 4.20 - 5.40 10^6/mcL AO Workflow SS WBC 8.6 103/mcL Invalid Interpretation Code 4.6 - 10.8 10^3/mcL AO Workflow SS NAURon 12-25-2021 Sodium [Moles/Vol] 22 mmol/L Normal 20-110 [facility] ([place]) Comment on above: Performed By: #### Bryce HAINES, CMP #### [address] [address] OSMOSon 12-25-2021 Osmolality [Osmolality] 263 mosm/kg Low 275-300 [facility] ([place]) Comment on above: Performed By: #### Bryce HAINES, CMP #### [address] [address] TOXSCon 12-25-2021 U Ampheta (AO) Negative Normal [facility] ([place]) Comment on above: Performed By: #### T OXJEANNA UA #### Gabriela [address] [address] U Soraya (AO) Negative Normal [facility] ([place]) Comment on above: Performed By: #### T OXJEANNA UA #### Gabriela [address] [address] U Hu (AO) Negative [facility] ([place]) Comment on above: Performed By: #### T OXSC, UA #### Gabriela [address] [address] U Cannab (AO) Negative [facility] ([place]) Comment on above: Performed By: #### T OXSC, UA #### Gabriela [address] [address] U Cocaine (AO) Negative [facility] ([place]) Comment on above: Performed By: #### T OXSC, UA #### Gabriela [address] [address] U Methadone (AO) Negative [facility] ([place]) Comment on above: Performed By: #### T OXSC, UA #### Gabriela [address] [address] U PCP (AO) Negative [facility] ([place]) Comment on above: Performed By: #### T OXSC, UA #### Gabriela [address] [address] U TCA (AO) Positive [facility] ([place]) Comment on above: Performed By: #### T OXSC, UA #### Gabriela [address] [address] Urine Opiates (AO) Negative [facility] ([place]) Comment on above: Performed By: #### T OXSC, UA #### Gabriela [address] [address] UAon 12-25-2021 Color (U) Yellow [facility] ([place]) Comment on above: Performed By: #### T OXSC, UA #### Gabriela [address] [address] Glucose (U) [Mass/Vol] Negative Normal Negative [facility] ([place]) Comment on above: Performed By: #### T OXSC, UA #### Gabriela [address] [address] Ketones Ql (U) Negative Normal Negative [facility] ([place]) Comment on above: Performed By: #### T OXSC, UA #### Gabriela [address] [address] UA Appear Clear Normal Clear [facility] ([place]) Comment on above: Performed By: #### T OXSC, UA #### Gabriela [address] [address] UA Blood Trace Abnormal Negative [facility] ([place]) Comment on above: Performed By: #### T OXSC, UA #### Gabriela [address] [address] UA Leuk Est Negative Normal Negative [facility] ([place] Comment on above: Performed By: #### T OXSC, UA #### Gab[address] [place] [address] UA Nitrite Negative Normal Negative [facility] ([place] Comment on above: Performed By: #### T OXSC, UA #### Gabriela [place] [address] UA pH 6.0 Normal 5.0 - 8.0 [facility] ([place]) Comment on above: Performed By: #### T OXSC, UA #### Gabriela [place] [address] UA Protein Negative Normal Negative [facility] ([place] Comment on above: Performed By: #### T OXSC, UA #### Gabriela [place] [address] UA Spec Grav 1.010 Abnormal 1.015-1.02 5 [facility] ([place]) Comment on above: Performed By: #### T OXSC, UA #### Gabriela [address] [address] UA Specimen Type Clean Catch Normal [facility] ([place] Comment on above: Performed By: #### T OXSC, UA #### Gabriela [address] [address] UA Urobilinogen 0.2 E.U./dL Normal 0.2-1.0 [facility] ([place]) Comment on above: Performed By: #### T OXPRATEEK MEEKS #### Gabriela [place], [place] [address] Urobilinogen (U) [Mass/Vol] Negative Normal Negative [facility] ([place]) Comment on above: Performed By: #### T OXPRATEEK MEEKS #### Gabriela [place] [address], [place] [address] XR CHEST 1 VIEWon 12-25-2021 XR CHEST 1 VIEW ORIGINAL EXAMINATION: ONE XRAY VIEW OF THE [...] Sign Date: 12/25/2021 12:13:51 PM Ordering Provider: KRYSTAL VALLADARES [facility] ([place]) XR FOREARM 2 VIEWS RIGHTon 0 12-11-2021 XR FOREARM 2 VIEWS RIGHT ORIGINAL EXAMINATION: TWO XRAY VIEWS OF THE [...] 12/11/2021 8:34:16 PM Ordering Provider: BALDOMERO HEAD [facility] ([place]) .Auto Diffon 10-20-2021 Basophil, Absolute 0.1 10 3/mcL Normal 0.0-0.2 [facility] ([place]) Comment on above: Performed By: #### G FR, CMP #### [address] [address] Basophils/100 WBC (Bld) 0.8 % Normal 0.0-2.5 [facility] ([place]) Comment on above: Performed By: #### G FR, CMP #### [address] [address] Eosinophil, Absolute 0.1 10 3/mcL Normal 0.0-0.4 [facility] ([place]) Comment on above: Performed By: #### G FR, CMP #### [address] [address] Eosinophils/100 WBC (Bld) 1.5 % Normal 0.0-7.0 [facility] ([place]) Comment on above: Performed By: #### G FR, CMP #### [address] [address] Lymphocyte, Absolute 1.4 10 3/mcL Normal 0.8-3.9 [facility] ([place]) Comment on above: Performed By: #### G FR, CMP #### [address] [address] Lymphocytes/100 WBC (Bld) 18.5 % Normal 10.0-50.0 [facility] ([place] Comment on above: Performed By: #### G FR, CMP #### [address] [address] Monocyte, Absolute 0.5 10 3/mcL Normal 0.2-1.0 [facility] ([place]) Comment on above: Performed By: #### G FR, CMP #### [address] [address] Monocytes/100 WBC (Bld) 6.6 % Normal 1.7-13.0 [facility] ([place]) Comment on above: Performed By: #### G FR, CMP #### [address] [address] Neutrophils/100 WBC (Bld) 72.6 % Normal 37.0-80.0 [facility] ([place]) Comment on above: Performed By: #### G FR, CMP #### Gabriela [address] [address] .GFRon 10-20-2021 GFR 64 ml/min/1.73sqm Normal [facility] ([place]) Comment on above: Result Comment: GFR Population mean for , Non- Americans Ages 20-29 = 116 mL/min/1.73 sq.m. Ages 30-39 = 107 mL/min/1.73 sq.m. Ages 40-49 = 99 mL/min/1.73 sq.m. Ages 50-59 = 93 mL/min/1.73 sq.m. Ages 60-69 = 85 mL/min/1.73 sq.m. Ages 70+ = 75 mL/min/1.73 sq.m. Chronic Kidney Disease: Less than 60 mL/min/1.73 square meters End Stage Renal Disease: Less than 15 mL/min/1.73 square meters Performed By: #### G FR, CMP #### Gabriela [address] [address] GFR Non- 53 ml/min/1.73sqm Normal [facility] ([place] Comment on above: Result Comment: GFR Population mean for , Non- Americans Ages 20-29 = 116 mL/min/1.73 sq.m. Ages 30-39 = 107 mL/min/1.73 sq.m. Ages 40-49 = 99 mL/min/1.73 sq.m. Ages 50-59 = 93 mL/min/1.73 sq.m. Ages 60-69 = 85 mL/min/1.73 sq.m. Ages 70+ = 75 mL/min/1.73 sq.m. Chronic Kidney Disease: Less than 60 mL/min/1.73 square meters End Stage Renal Disease: Less than 15 mL/min/1.73 square meters Performed By: #### G FR, CMP #### Gabriela [address] [address] .MDWon 10-20-2021 Monocyte Distribution Width 15.89 Normal 0.00-20.00 [facility] ([place] Comment on above: Result Comment: For ED adult patients suspected of sepsis, MDW<=20.0 does not rule out sepsis or risk of sepsis Performed By: #### G , CMP #### [address] [address] .NEUABSon 10-20-2021 Neutrophil, Absolute 5.6 10 3/mcL Normal 2.9-6.2 [facility] ([place]) Comment on above: Performed By: #### G , CMP #### [address] [address] CBCon 10-20-2021 Erythrocyte distribution width (RBC) [Ratio] 13.1 % Normal 11.5-14.5 [facility] ([place] Comment on above: Performed By: #### Bryce HAINES, CMP #### [address] [address] Hematocrit (Bld) [Volume fraction] 41.7 % Normal 37.0-47.0 [facility] ([place] Comment on above: Performed By: #### G , CMP #### [address] [address] Hgb 14.4 G/dL Normal 12.0-16.0 [facility] ([place] Comment on above: Performed By: #### G , CMP #### [address] [address] MCH (RBC) [Entitic mass] 33.0 pg High 27.0-31.2 [facility] ([place] Comment on above: Performed By: #### G , CMP #### [address] [address] MCHC 34.5 G/dL Normal 33.0-37.0 [facility] ([place] Comment on above: Performed By: #### G FR, CMP #### [address] [address] MCV (RBC) [Entitic vol] 95.5 fL High 80.0-94.0 A [facility] ([place]) Comment on above: Performed By: #### G FR, CMP #### [address] [address] Platelet 381 10 3/mcL Normal 130-400 [facility] ([place] Comment on above: Performed By: #### G FR, CMP #### [address] [address] Platelet mean volume (Bld) [Entitic vol] 7.4 fL Normal 7.4-10.4 [facility] ([place] Comment on above: Performed By: #### G FR, CMP #### [address] [address] RBC 4.36 10 6/mcL Normal 4.20-5.40 [facility] ([place] Comment on above: Performed By: #### G FR, CMP #### [address] [address] WBC 7.7 10 3/mcL Normal 4.6-10.8 [facility] ([place] Comment on above: Performed By: #### G FR, CMP #### [address] [address] CMPon 10-20-2021 Albumin Level 4.3 G/dL Normal 3.4-4.8 [facility] ([place] Comment on above: Performed By: #### G FR, CMP #### [address] [address] Albumin/Globulin [Mass ratio] 1.3 {ratio} Normal 1.1-2.5 [facility] ([place] Comment on above: Performed By: #### G FR, CMP #### [address] [address] ALP [Catalytic activity/Vol] 93 U/L Normal 40-135 [facility] ([place] Comment on above: Performed By: #### G FR, CMP #### [address] [address] ALT [Catalytic activity/Vol] 36 U/L Normal 14-59 [facility] ([place] Comment on above: Performed By: #### G , CMP #### [address] [address] AST [Catalytic activity/Vol] 31 U/L Normal 10-40 [facility] ([place] Comment on above: Performed By: #### G , CMP #### [address] [address] Bili Total 0.2 mg/dL Normal 0.2-1.0 [facility] ([place] Comment on above: Result Comment: Use of this assay is not recommended for patients undergoing treatment with eltrombopag due to the potential for falsely elevated results. Performed By: #### Bryce HAINES, CMP #### [address] [address] BUN/Creatinine Ratio 19 ratio Normal 7-27 [facility] ([place]) Comment on above: Performed By: #### Bryce HAINES, CMP #### [address] [address] Calcium [Mass/Vol] 10.0 mg/dL Normal 8.4-10.2 [facility] ([place]) Comment on above: Performed By: #### Bryce HAINES, CMP #### [address] [address] Chloride [Moles/Vol] 98 mmol/L Normal 98-107 [facility] ([place] Comment on above: Performed By: #### Bryce HAINES, CMP #### [address] [address] CO2 [Moles/Vol] 32 mmol/L High 23-31 [facility] ([place] Comment on above: Performed By: #### Bryce HAINES, CMP #### [address] [address] Creatinine [Mass/Vol] 1.06 mg/dL High 0.55-1.02 Counts include 234 beds at the [facility] ([place]) Comment on above: Performed By: #### Bryce HAINES, CMP #### [address] [address] Electrolyte Balance 9.0 mEq/L Normal 4.0-15.0 [facility] ([place]) Comment on above: Performed By: #### G FR, CMP #### [address] [address] Globulin 3.2 G/dL Normal [facility] ([place] Comment on above: Performed By: #### G FR, CMP #### [address] [address] Glucose [Mass/Vol] 104 mg/dL Normal 80-115 [facility] ([place]) Comment on above: Performed By: #### G FR, CMP #### [address] [address] Potassium [Moles/Vol] 4.4 mmol/L Normal 3.5-5.1 Counts include 234 beds at the [facility] ([place] Comment on above: Performed By: #### G FR, CMP #### [address] [address] Sodium [Moles/Vol] 139 mmol/L Normal 136-145 [facility] ([place] Comment on above: Performed By: #### G FR, CMP #### [address] [address] Total Protein 7.5 G/dL Normal 6.4-8.2 [facility] ([place] Comment on above: Performed By: #### G FR, CMP #### [address] [address] Urea nitrogen [Mass/Vol] 20 mg/dL High 7-18 [facility] ([place] Comment on above: Performed By: #### G FR, CMP #### [address] [address] [address] ABDOMEN/PELVIS W/O CONTRA STon 10-20-2021 CT ABDOMEN/PELVIS W/O CONTRAST ORIGINAL EXAMINATION: CT OF THE ABDOMEN AND PELVIS WITHOUT CONTRAST 10/20/2021 3:37 pm TECHNIQUE: CT of the abdomen and pelvis was performed without the administration of intravenous contrast. Multiplanar reformatted images are provided for review. Automated exposure control, iterative reconstruction, and/or weight based adjustment of the mA/kV was utilized to reduce the radiation dose to as low as reasonably achievable. COMPARISON: None. HISTORY: ORDERING SYSTEM PROVIDED HISTORY: Reason for Exam: abdominal pain. Right flank pain FINDINGS: The heart is normal in size. Lung bases appear clear. No suspicious findings seen of the unenhanced liver or spleen. The left adrenal gland is normal. A right adrenal nodule measures 2.7 cm and is 1 Hounsfield units, compatible with an adenoma. No pancreatic abnormality seen. The small bowel appears normal in caliber. Appendix is normal in caliber. No focal inflammatory changes visualized. No lymphadenopathy seen. Atherosclerosis noted of the normal caliber aorta. There is other prominence of the right ureter or a complex lesion in the right ovary measuring 3.2 cm. Degenerative changes identified in the spine. No aggressive osseous lesions. Slight anterolisthesis of L4 with respect L5 visualized. IMPRESSION: No radiodense urinary calculus or hydronephrosis Asymmetric prominence of the right ovary versus a complex right ovarian lesion. Prompt follow-up ultrasound advised No focal inflammatory changes of the bowel Right adrenal adenoma. Other incidental findings, as above RECOMMENDATIONS: 3.2 cm right ovarian indeterminate cyst. Recommend prompt follow-up with pelvic US. Reference: Radiology 2010 Jan;256(3):943-54 Interpreted by: Cr Bowden MD Preliminary Report By: Cr Bowden MD Electronically signed By rC Bowden MD Dictated Date: 10/20/2021 3:43:54 PM Prelim Date: 10/20/2021 3:49:59 PM Sign Date: 10/20/2021 3:49:59 PM Ordering Provider: KRYSTAL VALLADARES [facility] ([place]) LABORATORYOrdered By: Princess Shah on 10-20-2021 Albumin BCP dye [Mass/Vol] 4.3 G/dL Invalid Interpretation Code 3.4 - 4.8 G/dL AO ADM SS Albumin/Globulin [Mass ratio] 1.3 {ratio} Invalid Interpretation Code 1.1 - 2.5 ratio AO ADM SS ALP [Catalytic activity/Vol] 93 U/L Invalid Interpretation Code 40 - 135 U/L AO ADM SS ALT With P-5'-P [Catalytic activity/Vol] 36 U/L Invalid Interpretation Code 14 - 59 U/L AO ADM SS AST With P-5'-P [Catalytic activity/Vol] 31 U/L Invalid Interpretation Code 10 - 40 U/L AO ADM SS Bilirubin [Mass/Vol] 0.2 mg/dL Invalid Interpretation Code 0.2 - 1.0 mg/dL AO ADM SS Calcium [Mass/Vol] 10.0 mg/dL Invalid Interpretation Code 8.4 - 10.2 mg/dL AO ADM SS Chloride [Moles/Vol] 98 mmol/L Invalid Interpretation Code 98 - 107 mmol/L AO ADM SS CO2 [Moles/Vol] 32 mmol/L Invalid Interpretation Code 23 - 31 mmol/L AO ADM SS Creatinine [Mass/Vol] 1.06 mg/dL Invalid Interpretation Code 0.55 - 1.02 mg/dL AO ADM SS Electrolyte Balance 9.0 mEq/L Invalid Interpretation Code 4.0 - 15.0 mEq/L AO ADM SS Globulin 3.2 G/dL Invalid Interpretation Code AO ADM SS Glucose [Mass/Vol] 104 mg/dL Invalid Interpretation Code 80 - 115 mg/dL AO ADM SS Potassium [Moles/Vol] 4.4 mmol/L Invalid Interpretation Code 3.5 - 5.1 mmol/L AO ADM SS Protein [Mass/Vol] 7.5 G/dL Invalid Interpretation Code 6.4 - 8.2 G/dL AO ADM SS Sodium [Moles/Vol] 139 mmol/L Invalid Interpretation Code 136 - 145 mmol/L AO ADM SS Urea nitrogen [Mass/Vol] 20 mg/dL Invalid Interpretation Code 7 - 18 mg/dL AO ADM SS Urea nitrogen/Creatinine [Mass ratio] 19 ratio Invalid Interpretation Code 7 - 27 ratio AO ADM SS LABORATORYOrdered By: Nixon Mcclain on 10-20-2021 Basophil, Absolute 0.1 103/mcL Invalid Interpretation Code 0.0 - 0.2 10^3/mcL AO Workflow SS Basophils/100 WBC (Bld) 0.8 % Invalid Interpretation Code 0.0 - 2.5 % AO Workflow SS Eosinophil, Absolute 0.1 103/mcL Invalid Interpretation Code 0.0 - 0.4 10^3/mcL AO Workflow SS Eosinophils/100 WBC (Bld) 1.5 % Invalid Interpretation Code 0.0 - 7.0 % AO Workflow SS Erythrocyte distribution width (RBC) [Ratio] 13.1 % Invalid Interpretation Code 11.5 - 14.5 % AO Workflow SS Hematocrit (Bld) [Volume fraction] 41.7 % Invalid Interpretation Code 37.0 - 47.0 % AO Workflow SS Hgb 14.4 G/dL Invalid Interpretation Code 12.0 - 16.0 G/dL AO Workflow SS Lymphocyte, Absolute 1.4 103/mcL Invalid Interpretation Code 0.8 - 3.9 10^3/mcL AO Workflow SS Lymphocytes/100 WBC (Bld) 18.5 % Invalid Interpretation Code 10.0 - 50.0 % AO Workflow SS MCH (RBC) [Entitic mass] 33.0 pg Invalid Interpretation Code 27.0 - 31.2 pg AO Workflow SS MCHC 34.5 G/dL Invalid Interpretation Code 33.0 - 37.0 G/dL AO Workflow SS MCV (RBC) [Entitic vol] 95.5 fL Invalid Interpretation Code 80.0 - 94.0 fL AO Workflow SS Monocyte distribution width Auto (Bld) [Entitic vol] 15.89 Invalid Interpretation Code 0.00 - 20.00 AO Workflow SS Comment on above: Result Comment: For ED adult patients suspected of sepsis, MDW<=20.0 does not rule out sepsis or risk of sepsis Monocyte, Absolute 0.5 103/mcL Invalid Interpretation Code 0.2 - 1.0 10^3/mcL AO Workflow SS Monocytes/100 WBC (Bld) 6.6 % Invalid Interpretation Code 1.7 - 13.0 % AO Workflow SS Neutrophil, Absolute 5.6 103/mcL Invalid Interpretation Code 2.9 - 6.2 10^3/mcL AO Workflow SS Neutrophils/100 WBC (Bld) 72.6 % Invalid Interpretation Code 37.0 - 80.0 % AO Workflow SS Platelet 381 103/mcL Invalid Interpretation Code 130 - 400 10^3/mcL AO Workflow SS Platelet mean volume (Bld) [Entitic vol] 7.4 fL Invalid Interpretation Code 7.4 - 10.4 fL AO Workflow SS RBC 4.36 106/mcL Invalid Interpretation Code 4.20 - 5.40 10^6/mcL AO Workflow SS WBC 7.7 103/mcL Invalid Interpretation Code 4.6 - 10.8 10^3/mcL AO Workflow SS LABORATORYOrdered By: SYSTEM SYSTEM on 10-20-2021 GFR 64 ml/min/1.73sqm Invalid Interpretation Code AO Chemistry S GFR Non- 53 ml/min/1.73sqm Invalid Interpretation Code AO Chemistry S US PELVIS NON-OB COMPLETEon 10-20-2021 US PELVIS NON-OB COMPLETE ORIGINAL EXAMINATION: PELVIC ULTRASOUND10/20/2021 4:42 pm COMPARISON: CT abdomen pelvis same day HISTORY: ORDERING SYSTEM PROVIDED HISTORY: Reason for Exam: pelvic pain Right ovarian cyst seen on CT abdomen pelvis same day FINDINGS: Transabdominal ultrasound performed. Transvaginal ultrasound not performed as patient unable to tolerate. The uterus measures 4.8 x 3.6 x 2.4 cm. The endometrial double wall thickness is 0.25 cm on transabdominal images. No visible myometrial mass. The right ovary measures 2.3 x 2.0 x 2.1 cm. The left ovary measures 1.3 x 1.3 x 1.2 cm. Doppler flow seen to both ovaries. No visible adnexal masses. No visible pelvic free fluid. IMPRESSION: No sonographic abnormalities of the uterus or ovaries. Previously described right ovarian cyst on CT abdomen/pelvis same day not seen on this exam. I have personally reviewed the images of this examination and agree with the resident's finding and interpretation. Interpreted by: Nelsy Alcocer MD Preliminary Report By: Marielena Garza Electronically signed By Nelsy Alcocer MD Dictated Date: 10/20/2021 4:57:18 PM Prelim Date: 10/20/2021 5:03:39 PM Sign Date: 10/20/2021 5:13:20 PM Ordering Provider: KRYSTAL Perez [facility] ([place]) TOXASSURE COMPRon 11-25-2018 TOXASSURE COMPR FINAL Normal () [facility] Comment on above: Result Comment: ====== TOXASSURE COMP DRUG ANALYSIS,UR ====== Test Result Flag Units Drug Present and Declared for Prescription Verification 7-aminoclonazepam 149 EXPECTED ng/mg creat 7-aminoclonazepam is an expected metabolite of clonazepam. Source of clonazepam is a scheduled prescription medication. Fentanyl 19 EXPECTED ng/mg creat Norfentanyl 177 EXPECTED ng/mg creat Source of fentanyl is a scheduled prescription medication, including IV, patch, and transmucosal formulations. Norfentanyl is an expected metabolite of fentanyl. Topiramate PRESENT EXPECTED Drug Present not Declared for Prescription Verification Oxycodone 355 UNEXPECTED ng/mg creat Noroxycodone 2596 UNEXPECTED ng/mg creat Sources of oxycodone include scheduled prescription medications. Noroxycodone is an expected metabolite of oxycodone. Lamotrigine PRESENT UNEXPECTED Acetaminophen PRESENT UNEXPECTED ====== Test Result Flag Units Ref Range Creatinine 47 mg/dL >=20 ====== Declared Medications: The flagging and interpretation on this report are based on the following declared medications. Unexpected results may arise from inaccuracies in the declared medications. Note: The testing scope of this panel includes these medications: Clonazepam Fentanyl Topiramate (Topamax) ====== For clinical consultation, please call . ====== Performed At: [employer] [address] [place] [address] [id number] Juancho Kern [facility] [id number] Performed By: #### [phone] #### [facility] [address] [place] [address] # [phone] Office Visit: abnormal CT a/ p for c-scopeon 01-11-2017 Dietary management education, guidance, and counseling (procedure) yes Invalid Interpretation Code [facility] [employer] Work Phone: Documentation of current medications (procedure) Done Invalid Interpretation Code [facility] [employer] Work Phone: Fall risk assessment No Invalid Interpretation Code [facility] [employer] Work Phone: Smoking cessation education (procedure) yes Invalid Interpretation Code [facility] [employer] Work Phone: Tobacco use [facility] Current every day smoker Invali d Interpretation Code [facility] [employer] Work Phone: Vital Signs Date Time Vital Sign Value Performing Clinician Facility 06-24-2023 14:45-0500 Diastolic blood pressure 72 mm[Hg] [facility] 06-24-2023 14:45-0500 Heart rate 72 /min [facility] 06-24-2023 14:45-0500 Respiratory rate 18 /min [facility] 06-24-2023 14:45-0500 SaO2% (BldA) [Mass fraction] 92 % [facility] 06-24-2023 14:45-0500 Systolic blood pressure 119 mm[Hg] [facility] 06-24-2023 13:35-0500 Body height 152.4 cm [facility] 06-24-2023 13:35-0500 Body mass index (BMI) [Ratio] 27.3 kg/m2 [facility] 06-24-2023 13:35-0500 Body temperature 97.1 [degF] [facility] 06-24-2023 13:35-0500 Body weight 63.5 kg [facility] 04-25-2023 17:41-0500 Heart rate 72 /min [facility] 04-25-2023 17:41-0500 Respiratory rate 18 /min [facility] 04-25-2023 15:42-0500 Body mass index (BMI) [Ratio] 26.4 kg/m2 [facility] 04-25-2023 15:42-0500 Body weight 59.3 kg [facility] 04-25-2023 15:36-0500 Body height 149.86 cm [facility] 04-25-2023 15:36-0500 Body temperature 97.2 [degF] [facility] 04-25-2023 15:36-0500 Diastolic blood pressure 111 mm[Hg] [facility] 04-25-2023 15:36-0500 SaO2% (BldA) [Mass fraction] 100 % [facility] 04-25-2023 15:36-0500 Systolic blood pressure 164 mm[Hg] [facility] 03-23-2022 15:00-0500 Diastolic blood pressure 68 mm[Hg] Nelsy Chaudhari PA-C Work Phone: [facility] 03-23-2022 15:00-0500 Systolic blood pressure 145 mm[Hg] Nelsy Chaudhari PA-C Work Phone: [facility] 03-23-2022 14:59-0500 Body temperature 97.7 [degF] Nelsy Chaudhari PA-C Work Phone: [facility] 03-23-2022 14:59-0500 Heart rate 86 /min eNlsy Chaudhari PA-C Work Phone: [facility] 03-23-2022 14:59-0500 Respiratory rate 18 /min Nelsy Chaudhari PA-C Work Phone: [facility] 03-23-2022 14:59-0500 SaO2% (BldA) [Mass fraction] 93 % Nelsy Chaudhari PA-C Work Phone: [facility] 12-26-2021 11:32-0400 Body temperature 98.78 [degF] CARMEN BOYD [employer] PAYABLE OR RECEIVABLE CLERK [facility] 12-26-2021 11:32-0400 Diastolic blood pressure 77 mm[Hg] CARMEN KINGER [employer]OUNTS PAYABLE OR RECEIVABLE CLERK [facility] 12-26-2021 11:32-0400 Heart rate 66 /min CARMEN KAPPER P[employer]ER [employer]S PAYABLE OR RECEIVABLE CLERK [facility] 12-26-2021 11:32-0400 Reason For Taking VItal Signs CARMEN FERNANDOER PLASTER M[employer]DER[employer]OUNTS PAYABLE OR RECEIVABLE CLERK [facility] 12-26-2021 11:32-0400 Systolic blood pressure 119 mm[Hg] CARMEN KAPPER [employer] PAYABLE OR RECEIVABLE CLERK [facility] 12-26-2021 07:36-0400 Reason For Taking VItal Signs CARMEN KAPPER P[employer]OUNTS PAYABLE OR RECEIVABLE CLERK [facility] 12-26-2021 07:20-0400 Body temperature 97.7 [degF] CARMEN KINGER [employer] PAYABLE OR RECEIVABLE CLERK [facility] 12-26-2021 07:20-0400 Diastolic blood pressure 81 mm[Hg] CARMEN FERNANDOER P[employer]ER M[employer]OUNTS PAYABLE OR RECEIVABLE CLERK [facility] 12-26-2021 07:20-0400 Heart rate 60 /min CARMEN KAPPER P[employer] PAYABLE OR RECEIVABLE CLERK [facility] 12-26-2021 07:20-0400 Reason For Taking VItal Signs CARMEN KAPPER P[employer] PAYABLE OR RECEIVABLE CLERK [facility] 12-26-2021 07:20-0400 Respiratory rate 16 /min CARMEN KAPPER [employer] PAYABLE OR RECEIVABLE CLERK [facility] 12-26-2021 07:20-0400 Systolic blood pressure 120 mm[Hg] CARMEN KAPPER [employer] PAYABLE OR RECEIVABLE CLERK [facility] 12-26-2021 06:16-0400 Heart rate 63 /min CARMEN KAPPER [employer] PAYABLE OR RECEIVABLE CLERK [facility] 12-26-2021 04:10-0400 Body temperature 97.52 [degF] CARMEN KAPPER [employer] PAYABLE OR RECEIVABLE CLERK [facility] 12-26-2021 04:10-0400 Diastolic blood pressure 77 mm[Hg] CARMEN KAPPER [employer] PAYABLE OR RECEIVABLE CLERK [facility] 12-26-2021 04:10-0400 Mean blood pressure 101 mm[Hg] CARMEN KAPPER [employer] PAYABLE OR RECEIVABLE CLERK [facility] 12-26-2021 04:10-0400 Respiratory rate 16 /min CARMEN KAPPER P[employer] PAYABLE OR RECEIVABLE CLERK [facility] 12-26-2021 04:10-0400 Systolic blood pressure 150 mm[Hg] CARMEN KAPPER P[employer] PAYABLE OR RECEIVABLE CLERK [facility] 12-26-2021 00:30-0400 Mean blood pressure 93 mm[Hg] CARMEN KAPPER P[employer] PAYABLE OR RECEIVABLE CLERK [facility] 12-26-2021 00:30-0400 Respiratory rate 18 /min CARMEN KAPPER P[employer] M[employer] PAYABLE OR RECEIVABLE CLERK [facility] 12-25-2021 19:04-0400 Mean blood pressure 116 mm[Hg] CARMEN KAPPER P[employer] PAYABLE OR RECEIVABLE CLERK [facility] 12-25-2021 16:53-0400 Heart rate 66 /min CARMEN KAPPER [employer] PAYABLE OR RECEIVABLE CLERK [address] [place] [address] 12-25-2021 14:22-0400 Heart rate 66 /min CARMEN KAPPER P[employer] PAYABLE OR RECEIVABLE CLERK [facility] 12-25-2021 14:18-0400 Body height 150 cm CARMEN BOYD P[employer]ER M[employer]S PAYABLE OR RECEIVABLE CLERK [facility] 12-25-2021 14:18-0400 Body weight 65.4 kg CARMEN BOYD [employer] PAYABLE OR RECEIVABLE CLERK [facility] 12-25-2021 14:18-0400 Body weight 29.07 kg/m2 CARMEN BOYD [employer] PAYABLE OR RECEIVABLE CLERK [facility] 12-25-2021 13:19-0400 Heart rate 69 /min CARMEN BOYD P[employer] PAYABLE OR RECEIVABLE CLERK [facility] 12-11-2021 19:48-0400 Body height 149.9 cm BALDOMERO DURESKA DO [facility] 12-11-2021 19:48-0400 Body temperature 98.06 [degF] BALDOMERO DURESKA DO [facility] 12-11-2021 19:48-0400 Body weight 63.6 kg BALDOMERO DURESKA DO [facility] 12-11-2021 19:48-0400 Diastolic blood pressure 86 mm[Hg] BALDOMERO DURESKA DO [facility] 12-11-2021 19:48-0400 Heart rate 90 /min BALDOMERO DURESKA DO [facility] 12-11-2021 19:48-0400 Respiratory rate 18 /min BALDOMERO DURESKA DO [facility] 12-11-2021 19:48-0400 Systolic blood pressure 140 mm[Hg] BALDOMERO DURESKA DO [facility] 10-20-2021 14:58-0400 Body temperature 98.42 [degF] KRYSTAL VALLADARES MD [facility] 10-20-2021 14:58-0400 Body weight 63.6 kg KRYSTAL VALLADARES MD [facility] 10-20-2021 14:58-0400 Diastolic blood pressure 80 mm[Hg] KRYSTAL VALLADARES MD [facility] 10-20-2021 14:58-0400 Heart rate 82 /min KRYSTAL VALLADARES MD [facility] 10-20-2021 14:58-0400 Respiratory rate 18 /min KRYSTAL VALLADARES MD [facility] 10-20-2021 14:58-0400 Systolic blood pressure 127 mm[Hg] KRYSTAL VALLADARES MD [facility] 08-01-2021 22:25-0400 Respiratory rate 18 /min TOMMY WOLFF DO [facility] 08-01-2021 21:52-0400 Body height 152.4 cm TOMMY DISLAT DO [facility] 08-01-2021 21:52-0400 Body temperature 97.34 [degF] TOMMY DISLAT DO [facility] 08-01-2021 21:52-0400 Body weight 68.2 kg TOMMY WOLFF DO [facility] 08-01-2021 21:52-0400 Diastolic blood pressure 84 mm[Hg] TOMMY WOLFF DO [facility] 08-01-2021 21:52-0400 Heart rate 81 /min TOMMY WOLFF DO [facility] 08-01-2021 21:52-0400 Respiratory rate 16 /min TOMMY WOLFF DO [facility] 08-01-2021 21:52-0400 Systolic blood pressure 159 mm[Hg] TOMMY WOLFF DO [facility] 01-11-2017 15:29-0400 BMI (Body Mass Index) 26.48 kg/m2 [facility] Work Phone: 01-11-2017 15:29-0400 BP Diastolic 93 mm[Hg] [facility] Work Phone: 01-11-2017 15:29-0400 BP Systolic 133 mm[Hg] [facility] Work Phone: 01-11-2017 15:29-0400 Height [facility].31 [facility] Work Phone: 01-11-2017 15:29-0400 Pulse (Heart Rate) 65 /min Lisette [facility] Work Phone: 01-11-2017 15:29-0400 Respiratory Rate 16 /min [facility] Work Phone: 01-11-2017 15:29-0400 Weight 63.05 kg Lisette [facility] Work Phone: 02-03-2011 10:14-0400 Body Temperature 97.8 [degF] Lisette Rees [facility] Work Phone: Encounters Encounter Date Encounter Type Care Provider Facility Start: 10-13-2024 ambulatory [facility] Facility:[facility] Start: 09-29-2024 End: 09-29-[address] Yobany Snell MD Work Phone: [facility] Work Phone: Start: 09-29-2024 End: 09-29-[address] Jaswinder Muñiz MD -Cat Scan [facility] Work Phone: Start: 09-29-2024 End: 09-29-2024 [facility] Start: 09-04-2024 End: 09-04-[address] Jaswinder Muñiz MD -Laboratory [facility] Start: 09-04-2024 End: 09-04-2024 ambulatory [facility] Facility:[facility] Start: 07-27-2024 ambulatory Abrahan Wild ty:[facility] Start: 07-18-2024 End: 07-18-[address] Yobany Snell MD Work Phone: [facility] Work Phone: Start: 07-18-2024 End: 07-18-[address] Yobany Snell MD -Laboratory, Phy Office 3rd Flr Start: 07-18-2024 End: 07-18-2024 ambulatory Yobany Chi Channing Facility:[facility] Start: 05-15-2024 ambulatory Yobany Chi Channing Facility:[facility] Start: 04-24-2024 ambulatory Yobany Chi Channing Facility:[facility] Start: 04-17-2024 End: 04-17-[address] Yobany Snell MD -Laboratory, Phy Office 3rd Flr Start: 04-17-2024 End: 04-17-2024 ambulatory Yobany Chi Channing Facility:[facility] Start: 02-07-2024 End: 02-07-2024 ambulatory Yobany Chi Channing Facility:[facility] Start: 01-12-2024 End: 01-12-2024 ambulatory [facility] Facility:[facility] Start: 12-07-2023 ambulatory [facility] Facility:[facility] Start: 10-15-2023 End: 10-15-2023 ambulatory [facility] Facility:[facility] Start: 08-31-2023 End: 08-31-[address] [facility] Work Phone: Start: 08-31-2023 End: 08-31-[address] [facility]-Radiology, [facility] Work Phone: Start: 08-12-2023 End: 08-12-[address] [facility] Work Phone: Start: 08-12-2023 End: 08-12-[address] [facility]-Pulmonary Services/Neurology Work Phone: Start: 07-15-2023 End: 07-15-[address] [facility] Work Phone: Start: 07-15-2023 End: 07-15-[address] [facility]-Laboratory, Phy Office 3rd Flr Start: 06-24-2023 End: 06-24-[address] [facility] Work Phone: Start: 06-24-2023 End: 06-24-[address] [facility]-Radiology, [facility] Work Phone: Start: 06-21-2023 End: 06-21-[address] [facility] Work Phone: Start: 06-21-2023 End: 06-21-[address] [facility] - [facility] Work Phone: Start: 06-02-2023 End: 06-02-[address] [facility] Work Phone: Start: 06-02-2023 End: 06-02-[address] [facility] Work Phone: Start: 05-03-2023 End: 05-03-[address] [facility] Work Phone: Start: 05-03-2023 End: 05-03-[address] [facility]-Laboratory, Phy Office 3rd Flr Start: 04-25-2023 End: 04-25-2023 Emergency department patient visit [facility]Emergency Department Work Phone: Start: 04-15-2023 End: 04-15-[address] [facility] Work Phone: Start: 04-15-2023 End: 04-15-[address] [facility]-Laboratory, y Office 3rd Flr Start: 04-01-2023 End: 04-01-[address] [facility] Work Phone: Start: 04-01-2023 End: 04-01-[address] [facility]-Pulmonary Services/Neurology Work Phone: Start: 01-07-2023 End: 01-07-[address] [facility] Work Phone: Start: 01-07-2023 End: 01-07-2023 [facility] Start: 11-05-2022 Telephone encounter Neftaly Coker MD Work Phone: Pain Management Comment on above: Patient Update Start: 10-20-2022 Refill Nelsy coello PA-C Work Phone: Pain Management Comment on above: Refill Request Start: 10-18-2022 Refill Nelsy coello PA-C Work Phone: Pain Management Comment on above: Refill Request Start: 09-11-2022 End: 09-11-2022 ambulatory NELSY CHAUDHARI Facility:[id number] Start: 08-12-2022 Refill Nelsy coello PA-C Work Phone: Pain Management Comment on above: Refill Request Start: 07-27-2022 Telephone encounter Nelsy Chaudhari PA-C Work Phone: Pain Management Comment on above: UDS/ patch count Start: 07-23-2022 End: 07-23-2022 ambulatory NELSY CHAUDHARI Facility:[id number] Start: 07-23-2022 End: 07-23-2022 ambulatory Nelsy Chaudhari PA-C Work Phone: Pain Management Comment on above: Fibromyalgia (Primar y Dx); Degeneration of intervertebral disc of lumbar region; Lumbar spondylosis; Degeneration of cervical intervertebral disc; Sacroiliitis (HCC); Chronic knee pain, unspecified laterality Start: 07-23-2022 End: 07-23-2022 Telemedicine consultation with patient Nelsy Chaudhari PA-C Work Phone: [facility] Start: 07-15-2022 Refill Nelsy coello PA-C Work Phone: Pain Management Comment on above: Refill Request Start: 06-16-[address] [facility]Pulmonary Services/Neurology Start: 06-15-2022 End: 06-15-[address] [facility] Work Phone: Start: 06-15-2022 End: 06-15-[address] [facility]-Laboratory, Phy Office 3rd Flr Start: 06-11-2022 End: 06-11-2022 ambulatory Nelsy Chaudhari PA-C Work Phone: Pain Management Comment on above: 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); Fibromyalgia; Degeneration of intervertebral disc of lumbar region; Lumbar spondylosis; Sacroiliitis (HCC); Chronic knee pain, unspecified laterality Start: 06-11-2022 End: 06-11-2022 Telemedicine consultation with patient Nelsy Chaudhari PA-C Work Phone: [facility] Start: 05-14-2022 Refill Nelsy coello PA-C Work Phone: Pain Management Comment on above: Refill Request Start: 05-04-2022 End: 05-04-2022 ambulatory Nelsy Chaudhari PA-C Work Phone: Pain Management Comment on above: Fibromyalgia (Primar y Dx); Degeneration of intervertebral disc of lumbar region; Lumbar spondylosis; Sacroiliitis (HCC); Degeneration of intervertebral disc of cervical region; Chronic knee pain, unspecified laterality Start: 05-04-2022 End: 05-04-2022 Telemedicine consultation with patient Nelsy Munoz Watson BERRY Work Phone: [facility] Start: 04-20-2022 Refill Nelsy ADAMS-C Work Phone: Pain Management Comment on above: Refill Request Start: 04-15-2022 Refill Nelsy coello PA-C Work Phone: Pain Management Comment on above: Refill Request Start: 04-07-2022 End: 04-07-[address] [facility] Work Phone: Start: 04-07-2022 End: 04-07-[address] [facility]-Laboratory, Phy Office 3rd Flr Start: 03-23-2022 End: 03-23-2022 ambulatory NELSY Tammy CHAUDHARI Facility:[id number] Start: 03-23-2022 End: 03-23-2022 Patient encounter procedure Nelsy Chaudhari PA-C Work Phone: Pain Management Comment on above: Fibromyalgia (Primar y Dx); Degeneration of intervertebral disc of lumbar region; Lumbar spondylosis; Sacroiliitis (HCC); Degeneration of intervertebral disc of cervical region; Chronic knee pain, unspecified laterality Start: 2022 Refill Nelsy ADAMS-C Work Phone: Pain Management Comment on above: Refill Request Start: 02-09-2022 End: 02-09-2022 ambulatory NELSY CHAUDHARI Facility:[id number] Start: 01-06-2022 Refill Nelsy ADAMS-C Work Phone: Pain Management Comment on above: Refill Request Start: 12-29-2021 End: 12-29-2021 Refill Nelsy ADAMS-C Work Phone: Pain Management Comment on above: Refill Request; Refi ll Request Start: 12-25-2021 End: 12-26-2021 Evaluation and management of inpatient CARMEN BOYD [employer] PAYABLE OR RECEIVABLE CLERK [facility] Start: 12-11-2021 End: 12-11-2021 Emergency department patient visit BALDOMERO HEDA DO [facility] Start: 11-28-2021 Refill Neftaly Jennifer Coker MD Work Phone: Pain Management Comment on above: Refill Request Start: 10-20-2021 End: 10-20-2021 Emergency department patient visit KRYSTAL VALLADARES MD [facility] Start: 10-14-2021 End: 10-14-2021 Subsequent hospital visit by physician Nelsy Chaudhari PA-C Work Phone: [facility] Comment on above: FOLLOW UP Start: 09-01-2021 End: 09-01-2021 Subsequent hospital visit by physician Nelsy Chaudhari PA-C Work Phone: [facility] Comment on above: FOLLOW UP Start: 08-01-2021 End: 08-01-2021 Emergency department patient visit TOMMY WOLFF DO [facility] Start: 09-18-2016 End: 09-18-2016 [facility] Procedures Date Procedure Procedure Detail Performing Clinician Start: 09-29-[address] Yobany harris MD Work Phone: Start: 09-04-2024 Vitamin D, 25-hydrox y measurement Dr. Yobany Snell MD Work Phone: Comment on above: Vitamin D StatusDefi ciency: <20 ng/mL (50nmol/L)Insufficiency: 20-30 ng/mL (50-75 nmol/L)Sufficiency: 30-100 ng/mL (75-250 nmol/L)Toxicity: >100 ng/mL (>250 nmol/L) Start: 07-18-2024 Vitamin D, 25-hydrox y measurement Dr. Yobany Snell MD Work Phone: Comment on above: Vitamin D StatusDefi ciency: <20 ng/mL (50nmol/L)Insufficiency: 20-30 ng/mL (50-75 nmol/L)Sufficiency: 30-100 ng/mL (75-250 nmol/L)Toxicity: >100 ng/mL (>250 nmol/L) Start: 08-31-2023 Plain X-ray of shoulder Start: 08-31-2023 X-ray of cervical spine Start: 06-24-2023 Diagnostic lumbar puncture Start: 06-21-2023 MRI of brain without contrast Start: 04-25-2023 Plain X-ray of shoulder Start: 04-25-2023 CT cervical spine without contrast Start: 04-25-2023 CT of head without contrast Start: 04-25-2023 Plain chest X-ray Start: 04-01-2023 Coronavirus COVID-19 PCR Start: 04-01-2023 Influenza Types A,B Direct FA (RK) Start: 04-01-2023 Respiratory syncytia l virus antigen assay Start: 06-15-2022 Diagnostic radiograp hy of abdomen Start: 08-24-2018 Diagnostic endoscopi c examination of ovary TOMMY WOLFF DO Comment on above: fibroids Start: 07-19-2015 End: 07-31-2015 Drain/inject, joint/bursa Nelsy [facility] Work Phone: Start: 04-03-2015 End: 04-17-2015 Drain/inject, joint/bursa Nelsy East Work Phone: Start: 02-21-2013 Mammography Nelsy ADAMS-Trino Work Phone: Start: 01-15-2010 Colonoscopy Nelsy ADAMS-Trino Work Phone: Start: 11-18-1992 section ESTEPHANIE Carmona NIGHATHua DO Colonoscopy TOMMY NIGHAT Sequeira DO Decompression of med spenser nerve TOMMY DISLAT DO Comment on above: Right H/O: surgery Hx of explorator y laparotomy Influenza Types A,B Direct FA (RK) Respiratory syncytia l virus antigen assay Plan of Treatment Date Care Activity Detail Author Start: 06-24-[address] [facility] Start: 04-25-2023 [facility] Start: 04-15-[address] [facility] Start: 01-15-2023 Influenza vaccination INFLUENZA (Season Ended) [facility] Start: 01-15-2022 Influenza vaccination [facility] Start: 07-30-2021 COVID-19 VACCINE (4 - Booster for Moderna series) COVID-19 VACCINE (4 - Booster for Moderna series) [facility] Start: 05-27-2021 COVID-19 VACCINE (4 - Booster for Moderna series) COVID-19 VACCINE (4 - Booster for Moderna series) [facility] Start: 02-14-2018 DIABETES SCREEN DIABETES SCREEN [facility] Start: 01-27-2017 End: 01-27-2017 Appointment Appointment [facility] [employer] Work Phone: Start: 01-11-2017 End: 01-11-2017 Diagnostic colonoscopy Colonoscopy [facility] [employer] Work Phone: Start: 01-11-2017 End: 01-12-2017 Follow Up Appt Other Follow Up Appt Other [facility] [employer] Work Phone: Start: 12-10-2016 HPV TESTING HPV TESTING [facility] Start: 12-10-2016 PAP TESTING PAP TESTING [facility] Start: 04-03-2015 End: 04-03-2015 Mri jnt of lwr extre w/o dye MRI Joint Lower Extremity [facility] [employer] Work Phone: Start: 04-03-2015 End: 04-03-2015 X-ray exam, knee, 4 or more X-Ray, Knee [facility] [employer] Work Phone: Start: 03-06-2014 LIPID SCREEN LIPID SCREEN [facility] Start: 02-21-2014 Mammography MAMMOGRAM [facility] Start: 01-15-2011 Colonoscopy COLONOSCOPY [facility] Start: 01-15-2011 COLORECTAL CANCER SCREENING COLORECTAL CANCER SCREENING [facility] Start: 2009 Influenza vaccination LUNG CANCER SCREENING [facility] Start: 2009 SHINGRIX VACCINE (1 of 2) SHINGRIX VACCINE (1 of 2) [facility] Start: 2004 COLOGUARD (FIT-DNA) COLOGUARD (FIT-DNA) [facility] Start: [address] COLONOGRAPHY [facility] Start: 2004 FECAL OCCULT BLOOD FECAL OCCULT BLOOD [facility] Start: 2004 SIGMOIDOSCOPY SIGMOIDOSCOPY [facility] Start: 02-15-2002 Urine microalbumin profile DTAP,TDAP,TD (1 - Tdap) [facility] Start: 1977 ANNUAL PCP TEAM CHRONIC DISEASE VISIT ANNUAL PCP TEAM CHRONIC DISEASE VISIT [facility] Start: 1977 HEPATITIS C SCREENING HEPATITIS C SCREENING [facility] Start: 1977 HIV SCREENING HIV SCREENING [facility] Start: 1977 SPIROMETRY SPIROMETRY [facility] Start: 1965 PNEUMOCOCCAL (1 - PCV) PNEUMOCOCCAL (1 - PCV) [facility] Start: 1964 COVID-19 VACCINE (#1) COVID-19 VACCINE (#1) [facility] Start: 1964 COVID-19 VACCINE (1) COVID-19 VACCINE (1) [facility] Start: 1959 COVID-19 VACCINE (#1) COVID-19 VACCINE (#1) [facility] Patient Education [facility] Work Phone: Patient referral [facility] Work Phone: [facility] Immunizations Immunization Date Immunization Notes Care Provider Fa cili 04-01-2021 influenza virus vacc ine, unspecified formulation CARMEN BOYD PLASTER MOLDER-ACCOUNTS PAYABLE OR RECEIVABLE CLERK [facility] 04-01-2021 pneumococcal polysaccharide vaccine, 23 valent CARMEN BOYD PLASTER MOLDER-ACCOUNTS PAYABLE OR RECEIVABLE CLERK [facility] 04-01-2021 SARS-CoV-2 (COVID-19 ) mRNA-1273 vaccine CARMEN BOYD PLASTER MOLDER-ACCOUNTS PAYABLE OR RECEIVABLE CLERK [facility] 11-15-2020 SARS-CoV-2 (COVID-19 ) mRNA-1273 vaccine CARMEN OLIVER PLASTER MOLDER-ACCOUNTS PAYABLE OR RECEIVABLE CLERK [facility] 10-08-2020 SARS-CoV-2 (COVID-19 ) mRNA-1273 vaccine CARMEN BOYD PLASTER MOLDER-ACCOUNTS PAYABLE OR RECEIVABLE CLERK [facility] 05-29-2020 influenza virus vacc ine, unspecified formulation CARMEN KINGER PLASTER MOLDER-ACCOUNTS PAYABLE OR RECEIVABLE CLERK [facility] 05-29-2020 pneumococcal polysaccharide vaccine, 23 valent CARMEN BOYD PLASTER MOLDER-ACCOUNTS PAYABLE OR RECEIVABLE CLERK [facility] 02-16-2018 influenza virus vacc ine, unspecified formulation CARMEN BOYD PLASTER MOLDER-ACCOUNTS PAYABLE OR RECEIVABLE CLERK [facility] 06-10-2017 influenza virus vacc ine, unspecified formulation CARMEN KINGER PLASTER MOLDER-ACCOUNTS PAYABLE OR RECEIVABLE CLERK [facility] 02-14-2009 influenza virus vacc ine, unspecified formulation Nelsy Chaudhari PA-C Work Phone: [facility] Work Phone: 04-06-2007 influenza virus vacc ine, unspecified formulation Nelsy Chaudhari PA-C Work Phone: [facility] Work Phone: 02-14-2002 tetanus and diphther ia toxoids, adsorbed, preservative free, for adult use (2 Lf of tetanus toxoid and 2 Lf of diphtheria toxoid) Nelsy Chaudhari PA-C Work Phone: [facility] Work Phone: 02-14-2002 tetanus and diphther ia toxoids, adsorbed, preservative free, for adult use (5 Lf of tetanus toxoid and 2 Lf of diphtheria toxoid) TOMMY WOLFF DO [facility] Payers Date Payer Category Payer Self-pay [id number] 2021 Medicaid [id number] 2021 Medicaid MEDICAID [facility] MEDICAID [id number] 2021-Present [phone] [address] [place] [address] Medicaid [id number] 2021 Medicaid [id number] 2020 Medicare HUMANA MEDICARE HUMANA GOLD PLUS [id number] 2020-Present [phone] [address] [address] [place] [address] O [id number] 2020 Medicare HUMANA MEDICARE HUMANA GOLD PLUS [id number] 2020-Present [phone] [address] [address] [place] [address] HMO [id number] 2020 Private Health Insurance [id number] 2000 Medicare MEDICARE MEDICAR E A AND B [id number] 2000-Present [phone] [place] [address] Medicare [id number] 2000 Medicare MEDICARE PART A B [id number] Unknown [id number] 62 Unknown [id number] 62 Unknown [id number] 62 Unknown [id number] 62 Unknown [id number] 62 Unknown [id number] 62 Unknown [id number] 62 Unknown [id number] 62 Unknown [id number] 62 Unknown [id number] 62 Unknown [id number] 62 Unknown [id number] 62 Social History Date Type Detail Facility Start: 03-29-2019 Light tobacco smoker (finding) [facility] Start: 1960 Sex Assigned At Female A [facility] Start: 12-29-2021 End: 04-25-2023 Tobacco smoking status WIIS Smokes tobacco daily [facility] History of tobacco use Cigarette Smoker [facility] Start: 02-20-2015 End: 09-11-2022 Alcohol intake Current non-drinker of alcohol (finding) [facility] Start: 1960 Sex Assigned At Not on file [facility] Start: 10-04-2021 End: 03-23-2022 Exposure to SARS-CoV-2 (event) Not sure [facility] Start: 12-25-2021 Tobacco smoking status Heavy t obacco smoker (finding) [facility] Start: 12-29-2021 End: 07-23-2022 Cigarettes smoked current (pack per day) - Reported 1 [facility] Start: 12-29-2021 End: 07-23-2022 Tobacco use and exposure Smokeless tobacco non-user [facility] Start: 09-06-2020 End: 04-25-2023 Tobacco smoking status NHIS Unknown if ever smoked [facility] Start: 09-06-2020 Cigarettes [facility] Start: 08-01-2024 Sex Female (finding) [facility] Functional Status Date Assessment Result Facility 12-26-2021 Functional Status bilateral knee high [facility] 12-26-2021 Functional Status Independent [facility] 12-26-2021 Functional Status Apartment [facility] 12-26-2021 Functional Status [facility] 12-26-2021 Functional Status [facility] 12-26-2021 Functional Status Demonstrates C orrect Call Light Use Yes [facility] 12-25-2021 Functional Status Moderate assistance [facility] 12-25-2021 Functional Status Dinner Percent 20 [facility] 12-25-2021 Functional Status Independent [facility] 12-25-2021 Functional Status Sensory Deficits None [facility] 12-25-2021 Functional Status Environmental Safety Implemented Adequate room lighting, Bed in low position, Call device within reach [facility] 12-25-2021 Functional Status [facility] 12-11-2021 Functional Status Ambulating in guerrero, Ambulating in room, Awake [facility] 12-11-2021 Functional Status Standard Safet y ID band on, Allergy Band on, Call device within reach, Bed in low position, Wheels locked, Upper/Half-Length side-rails up, personal items within reach, Visitor at bedside [facility] 10-20-2021 Functional Status Standard Safet y ID band on, Allergy Band on, Call device within reach, Bed in low position, Wheels locked, Upper/Half-Length side-rails up, Bedside Cart Locked, Safety level maintained [facility] Mental Status Date Assessment Result Facility 06-24-2023 Cognitive function Awake;Alert;Appropriat e [facility] Work Phone: 12-26-2021 Mental Status Oriented x 4 [facility] 12-26-2021 Mental Status [facility] 12-26-2021 Mental Status [facility] 12-26-2021 Mental Status [facility] 12-11-2021 Mental Status Orientation Oriented x 4 [facility] 12-11-2021 Mental Status [facility] 10-20-2021 Mental Status Orientation Oriented x 4 [facility] Clinical Notes 05-19-2007 to 09-30-2024 Telephone Encounter - Nelsy Chaudhari PA-C - 11/05/2022 1:55 PM EDTTelephone Encounter - Liliana Graham RN - 11/05/2022 1:51 PM EDTTelephone Encounter - Liliana Graham RN - 10/20/2022 2:54 PM EDT Note Date & Type Note Facility 09-30-2024 Radiology Diagnostic study note [facility] Imaging Services [address] [place] [id number] Lung Screening MR#: [id number] Acct: [id number] Name: NAVIN AUGUST I Rep #: [id number] : 1960 F 64 From: Renee Mcknight MD PCP: Dr. Jaswinder Muñiz MD Status: REG CL I Study:Low Dose CT Lung Screening Date of Exam : 09/29/24 Exam# [id number] Ordering Dr: Aury Muñiz MD EXAM: CT Chest, Lung Cancer Screening Without Intravenous Contrast CLINICAL INDICATION: SCREENING CT LUNGS TECHNIQUE: Axial computed tomography images of the chest without intravenous contrast using low dose (LDCT) lung cancer screening protocol. This CT exam was performed using one or more of the following dose reduction techniques: automated exposure control, adjustment of the mA and/or kV according to patient size, and/or use ofiterative reconstruction technique. COMPARISON: CT Lung Cancer Screening dated 06/24/2020 FINDINGS: LUNGS AND PLEURAL SPACES: Lung emphysema/COPD. Stable 2 mm nodule of the rightupper lobe. Lingular atelectasis or scarring. No pneumothorax. No significant effusion. No new suspicious pulmonary nodules. HEART: Unremarkable. No cardiomegaly. No significant pericardial effusion. No significant coronary artery calcifications. BONES/JOINTS: Unremarkable. No acute fracture. No dislocation. SOFT TISSUES: Unremarkable. VASCULATURE: Unremarkable. No thoracic aortic aneurysm. LYMPH NODES: Unremarkable. No enlarged lymph nodes. CT/Low Dose CT Lung Screening IMPRESSION: 1. No new suspicious pulmonary nodules. 2. LUNG-RADS 2: Benign. Continue low-dose CT screening of the chest in 12 months is recommended. Reading Location: [facility] CC: Dr. Jaswinder Muñiz MD ~ Medical Device Sales Consultant: Signed [facility] 11-05-2022 Miscellaneous Notes Noted. Navin called to let us know that she is doing well without fentanyl patch and is not having pain at present She is pleased she no longer needs pain management and wanted to thank us for past treatment I did let her know to call us if she would need an appointment in the future Liliana Graham RN documented in this encounter [facility] 10-20-2022 Miscellaneous Notes The following [...] 22, 2022. Please review and advise. Liliana Grahma RN documented in this encounter [facility] 10-19-2022 Miscellaneous Notes The following [...] DAY NEEDED Please review and advise. Liliana Graham RN documented in this encounter [facility] 09-11-2022 Note HNO ID: [id number] Author: Nelsy Chaudhari PA-C Service: ? Author Type: Physician Hydro Plant Technician Type: Progress Notes Filed: 09/11/2022 2:24 PM Note Text: This note was created using Abakusriter. Subjective Navin August is a 62 year [...] in office in (more content not included)... [facility] 08-12-2022 Miscellaneous Notes The following approved medication requests have been transmitted electronically. Requested Prescriptions Pending Prescriptions Disp Refills fentaNYL 37.5 mcg/hour pt72 15 Patch 0 Sig: Apply 1 Patch as directed every 48 hours for 30 days. Do not start before August 18, 2022. Nelsy Chaudhari PA-C documented in this encounter [facility] 07-27-2022 Miscellaneous Notes Arrived for UDS Completed In addition, brought fentanyl 50 mcg patches for count ( see AG SPINE PAIN COUNT) Count appropriate Liliana Graham RN July 27, 2022 2:00 PM documented in this encounter [facility] 07-23-2022 Note HNO ID: [id number] Author: Nelsy Chaudhari PA-C Service: ? Author Type: Physician Hydro Plant Technician Type: Progress Notes Filed: 07/23/2022 2:48 PM Note Text: I have communicated my name and active licensure. The patient's identity and physical location were verified at the time of this visit. Either the patient or their legal manufacturer's representative has been informed of the risks and benefits of -- and alternatives to -- treatment through a remote evaluation and consents to proceed with the evaluation remotely. This note was created using MONOCO. Subjective Navin August is a 62 year [...] a new order (more content not included)... [facility] 07-23-2022 Instructions Nelsy Chaudhari PA-C - [...] at this time. documented in this encounter [facility] 07-23-2022 History of Presen t illness Narrative I have communicated my name and active licensure. The patient's identity and physical location were verified at the time of this visit. Either the patient or their legal manufacturer's representative has been informed of the risks and benefits of -- and alternatives to -- treatment through a remote evaluation and consents to proceed with the evaluation remotely. This note was created using MONOCO. Subjective Navin August is a 62 year [...] Nelsy Chaudhari PA-C documented in this encounter [facility] 07-15-2022 Miscellaneous Notes The following [...] 19, 2022. Please review and advise. Liliana Graham RN documented in this encounter [facility] 06-11-2022 Note HNO ID: [id number] Author: Nelsy Chaudhari PA-C Service: ? Author Type: Physician Hydro Plant Technician Type: Progress Notes Filed: 06/11/2022 2:22 PM Note Text: This note was created using Abakusriter. Subjective Navin August is a 62 year old female. The patient primarily being seen for neck, back pain Patient was last seen on: 12/19/22 At that time, the treatment plan was: [...] 338.29, ICD10: M25.569, G89.29 Nelsy Chaudhari PA-C [facility] 06-11-2022 Instructions Nelsy Chaudhari PA-C - [...] at this time. documented in this encounter [facility] 06-11-2022 History of Presen t illness Narrative This note was created using MONOCO. Subjective Navin August is a 62 year [...] Nelsy Chaudhari PA-C documented in this encounter [facility] 05-14-2022 Miscellaneous Notes The following [...] 20, 2022. Please review and advise. Liliana Graham RN documented in this encounter [facility] 05-04-2022 Note HNO ID: [id number] Author: Nelsy Chaudhari PA-C Service: ? Author Type: Physician Hydro Plant Technician Type: Progress Notes Filed: 05/04/2022 3:11 PM Note Text: This note was created using Abakusriter. Subjective Navin August is a 62 year [...] G89.29 Nelsy Rutherford (more content not included)... [facility] 05-04-2022 Instructions Nelsy Chaudhari PA-C - [...] at this time. documented in this encounter [facility] 05-04-2022 History of Presen t illness Narrative This note was created using MONOCO. Subjective Navin August is a 62 year [...] Nelsy Chaudhari PA-C documented in this encounter [facility] 04-20-2022 Miscellaneous Notes The following [...] DAY DIRECTED Please review and advise. Liliana Graham RN documented in this encounter [facility] 04-15-2022 Miscellaneous Notes The following [...] 18, 2022. Please review and advise. Liliana Graham RN documented in this encounter [facility] 03-23-2022 Note HNO ID: [id number] Author: Nelsy Chaudhari PA-C Service: ? Author Type: Physician Hydro Plant Technician Type: Progress Notes Filed: 03/23/2022 3:10 PM Note Text: This note was created using fanatixter. Subjective Navin August is a 62 year [...] 720.2, ICD10: M46.1 (more content not included)... [facility] 03-23-2022 Instructions Nelsy Chaudhari PA-C - [...] at this time. documented in this encounter [facility] 03-23-2022 History of Presen t illness Narrative This note was created using MONOCO. Subjective Navin August is a 62 year [...] Nelsy Chaudhari PA-C documented in this encounter [facility] 2022 Miscellaneous Notes The following approved medication requests have been transmitted electronically. Requested Prescriptions Pending Prescriptions Disp Refills fentaNYL (DURAGESIC) 50 mcg/hr 15 Patch 0 Sig: APPLY 1 PATCH TO SKIN EVERY OTHER DAY DIRECTED Nelsy Chaudhari PA-C Not available at [facility] in [place] Liliana Graham RN 2022 2:56 PM Requested Prescriptions Pending Prescriptions Disp Refills fentaNYL (DURAGESIC) 50 mcg/hr 15 Patch 0 Sig: APPLY 1 PATCH TO SKIN EVERY OTHER DAY DIRECTED Please review and advise. Liliana Graham RN documented in this encounter [facility] 02-09-2022 Note HNO ID: [id number] Author: Nelsy Chaudhari PA-C Service: ? Author Type: Physician Hydro Plant Technician Type: Progress Notes Filed: 02/09/2022 3:27 PM Note Text: This note was created using Abakusriter. Subjective Navin August is a 61 year [...] (HCC) - IC (more content not included)... [facility] 01-06-2022 Miscellaneous Notes The following approved [...] as needed. Please review and advise. Liliana Graham RN documented in this encounter [facility] 12-30-2021 Miscellaneous Notes The following [...] TO SKIN EVERY OTHER DAY DIRECTED Liliana Graham RN documented in this encounter [facility] 12-29-2021 Note HNO ID: [id number] Author: Neftaly Coker MD Service: ? Author Type: Physician Type: Progress Notes Filed: 12/30/2021 3:33 PM Note Text: This note was created using Abakusriter. Subjective Navin August is a 61 year [...] (Temporal) Resp 20 Ht 149.9 cm (4' 11) Wt 20.9 kg (46 lb) LMP 01/12/2008 [...] may contain minor errors. Neftaly Coker MD [facility] 12-26-2021 Nurse Progress note Patient informed [...] Stephanie Hidalgo RN on 12/26/2021 03:25 PM [facility] 12-26-2021 Note Discharge Instructions Thank you for allowing [place] to assist you with your healthcare needs. The following is important discharge information regarding your hospital visit. Your Care Team Carmen Boyd PLASTER MOLDER Your Diagnosis Hypo-osmolality and hyponatremia Bipolar disease, chronic Asthma Bronchitis, chronic Hypothyroid Fibromyalgia Anxiety Medical screening exam What to do next Follow Up Appointments Follow Up with WILL SNELL MD When Within 5 to 7 days Why: Message left for PCP office. Recheck BMP in 1 week. Where: [facility] [address] [place] [address] [address] [place] [address]- The Following Activity and Diet Have Been [...] is: 01/01/22 12:00:00 EDT, results to Dr. Snell, 12/26/21 12:46:00 EDT Discharge Radiology No qualifying [...] hours Fibromyalgia Duration: 4 Days Pickup at [facility] #[id number] Unchanged acetaminophen (acetaminophen 325 mg oral capsule) [...] for muscle spasm 11 AM Pharmacy Information [facility] #[id number]: [address], [place] [id number] [phone] Please take this list to your next [...] Document Reviewed: 01/13/2012 ExitCare Patient Information 2015 [facility]. This information is not intended to replace advice given to you by your health care provider. Make sure you discuss any questions you have with your health care provider. Additional Information VACCINATE! IT SAVES LIVES! Members of the community who have not yet received the COVID-19 vaccine and would like to receive it can visit one of [facility] vaccine clinics. There are many vaccine clinic locations within the [facility]. For locations and available times, please visit [email or web address] It is important to note that some COVID mobile vaccine clinics are held outdoors and may be canceled in rainy or stormy conditions. To learn more about pediatric vaccinations (ages 5-11), we invite you to visit the [facility] webpage. [email or web address] [email or web address] To learn more about the COVID-19 vaccine, we invite you to visit the [facility] website for a list of frequently asked questions. [email or web address] [facility] OneChart Patient Portal Access Instructions: Stay connected with your healthcare team and access your personal medical information anytime with the [facility] [employer] Patient Portal.If you would like a full copy of your medical records, please contact the [facility] Medical Records Department, Wednesday through Wednesday between 8a.m. and 4:30p.m. Please follow the directions below to access the portal: 1.Access the email account you provided upon registration to the [facility].2.Look for an invitation email from [facility].3.Open the email and access the invitation link: Accept Invitation to [facility]4.Fill in the required renner to create your account. Sign into [email or web address] with your username and password that you [...] you will allow to register on the [employer] Patient Portal for access to your information. You can also access the [employer] Patient Portal on the DATY. Simply click on Health Records under Health Data and then click on the Bancha logo. HOW TO SAFELY DISPOSE OF PRESCRIPTION [...] Call your local pharmacy or go to http://[email or web address] [email or web address]/[email or web address] to find one close to you.3.Make use of household items: Use cat litter or old coffee grounds to dispose medications if other options are not available. Mix your drugs with these household products, seal them in an airtight container and throw it into the garbage. Call [facility]: [phone] to be sure your drugs can be [...] CHART COPY. Signatures Patient Education Materials Hyponatremia, Elgf-nt-Yhpl Medication Leaflets My discharge plan and instructions have been reviewed and explained to me and I,NAVIN AUGUST understand my current condition and have read and understand these discharge instructions. I have received a written copy of the plan/instructions. If I have questions, I am aware that I should contact my doctor. 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 Signature: Date/Time: Relationship to Patient: Witness Name/Signature: Date/Time: [facility] 12-26-2021 Hospital Discharg e instructions Patient Education 12/26/2021 12:37:18 Hyponatremia, Gfmp-sp-Ybsd Hyponatremia Hyponatremia is when the salt (sodium) [...] Document Reviewed: 01/13/2012 ExitCare Patient Information 2015 [employer]. This information is not intended to replace advice given to you by your health care provider. Make sure you discuss any questions you have with your health care provider. Follow Up Care 12/25/2021 09:58:36 With:WILL SNELL MD Address: [facility]/[address] [place] [address]- When:5 to 7 days Comments:Message left for PCP office. Recheck BMP in 1 week. [facility] 12-26-2021 Nurse Progress note Patient requesting COVID test. Spoke to PLASTER MOLDER and test was ordered. When patient was told how long the test would take she refused. Patient stated, I'm not waiting that long, I refuse. Digitally Signed by Katheryn Delgado LPN on 12/26/2021 01:36 PM [facility] 12-25-2021 Note Date of Service 12/25/2021 Chief Complaint States that she is concerned that she has ammonia toxicity. History of Present Illness Patient is a 61-year-old female, who follows with Dr. Snell with a past medical history significant for bipolar disorder, asthma, fibromyalgia, and hypothyroidism, presents to [facility] emergency department with the chief complaint [...] Intubate, Constant Order Digitally Signed by CARMEN BOYD on 12/25/2021 04:34 PM [facility] 12-25-2021 Evaluation + Plan note Extrac mark from: Title:History and Physical Author:CARMEN BOYD Date:12/25/21 1. Hypo-osmolality and hypon atremia Acute on [...] Tests Pending * COVID-19 Only (AO) 12/26/21 [facility] 08-11-2022 Note ORIGINAL EXAMINATION: CT OF [...] 12/25/2021 12:16:50 PM Ordering Provider: KRYSTAL VALLADARES [facility]08-11-2022 Note ORIGINAL EXAMINATION: ONE XRAY VIEW [...] Sign Date: 12/25/2021 12:13:51 PM Ordering Provider: KRYSTAL ELY[address]11-2022 Note ORIGINAL EXAMINATION: ONE XRAY VIEW [...] Sign Date: 12/25/2021 12:13:51 PM Ordering Provider: KRYSTAL LY[address]11-2022 Note ORIGINAL EXAMINATION: CT OF THE [...] Date: 12/25/2021 12:16:50 PM [facility]ing [facility] Discharge instructions Patient Education 12/11/2021 20:39:48 [...] body part Frequent bruising for unknown reasons [id number] [employer]. [address] [place] [address]. All rights reserved. This information is not intended as a substitute for professional medical care. Always follow yourhealthcare professional's instructions. Follow Up Care 12/11/2021 19:44:25 With:WILL SNELL MD Address: [facility]/[address] [place] [address]- When:2-4 days [facility] 07-28-2022 Note Discharge Instructions Thank you for allowing [place] to assist you with your healthcare needs. The following is importantdischarge information regarding your hospital visit. Diagnosis from Today's Visit Arm injury - Minor What to Do Next Instructions from Your Care Team No qualifying data available. Post Acute Orders No qualifying data available. You Need to Schedule the Following Appointments Follow Up with WILL SNELL MD When Within 2-4 days Where: [facility]/[address] [place] [address]- Allergies Levaquin (Tongue swelling) Neurontin (Rash) Medications [...] body part Frequent bruising for unknown reasons [id number] [employer]. [address] [place] [address]. All rights reserved. This information is not intended as a substitute for professional medical care. Always follow yourhealthcare professional's instructions. Additional Information VACCINATE! IT SAVES LIVES! Members of the community who have not yet received the COVID-19 vaccine and would like to receive it can visit one of [facility] vaccine clinics. There are many vaccine clinic locations within the [facility]. For locations and available times, please visit [email or web address]. It is important to note that some COVID mobile vaccine clinics are held outdoors and may be canceled in rainy orstormy conditions. To learn more about pediatric vaccinations (ages 5-11), we invite you to visit the [facility] webpage. [email or web address]/[email or web address] [email or web address].htmlTo learn more about the COVID-19 vaccine, we invite you to visit the [place] website for a list of frequently asked questions. [email or web address]-[email or web address] _[email or web address].pdf [facility] Patient Portal Access Instructions: Stay connected with your healthcare team and access your personal medical information anytime with the [employer] Patient Portal. If you would like a full copy of your medical records please contact the [facility] Medical Records Department Wednesday through Wednesday between 8a.m. and 4:30p.m. Please follow the directions below to access the portal: 1.Access the email account you provided upon registration to the [facility].2.Look for an invitation email from [facility].3.Open the email and access the invitation link: Accept Invitation to [facility]4.Fill in the required renner to create your account. Sign into [email or web address] with your username and password that you [...] you will allow to register on the [facility] Patient Portal for access to your information. You can also access the [facility] Patient Portal on the DATY. Simply click on Health Records under P[employer]on and then click on the [employer] logo. HOW TO SAFELY DISPOSE OF PRESCRIPTION [...] Call your local pharmacy or go to http://[email or web address].CANWE [email or web address]/1P7Qr4v to find one close to you.3.Make use of household items: Use cat litter or old coffee grounds to dispose medications if other options arenot available. Mix your drugs with these household products, seal them in an airtight container andthrow it into the garbage. Call [facility]: [phone] to be sure your drugs can be [...] aware that I should contact my doctor. 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 Signature: Date/Time: Relationship to Patient: Witness Name/Signature: Date/Time: [facility]07-28-2022 Note ORIGINAL EXAMINATION: TWO XRAY VIEWS [...] Sign Date: 12/11/2021 8:34:16 PM Ordering Provider: [facility]07-28-2022 Note ORIGINAL EXAMINATION: TWO XRAY VIEWS OF [...] Sign Date: 12/11/2021 8:34:16 PM Ordering Provider: [facility]07-15-2022 Miscellaneous Notes* Telephone Encounter - Liliana Graham RN - 11/28/2021 2:33 PM EDT Patient phones requesting refills as follows: Pending Prescriptions Disp Refills FENTANYL 50 MCG/HR TRANSDERMAL PATCH 15 Patch 0 Sig: APPLY 1 PATCH TO SKIN EVERY OTHER DAY DIRECTED Do not start before November 30, 2021. JOAQUIN Class: C-II BRENDA: No Please review and advise. Liliana Graham RN [facility] Miscellaneous Notes* Telephone Encounter - Liliana Graham RN - 11/28/2021 10:46 AM EDT Patient phones requesting refills as follows: Pending Prescriptions Disp Refills FENTANYL 50 MCG/HR TRANSDERMAL PATCH 15 Patch 0 Sig: APPLY 1 PATCH TO SKIN EVERY OTHER DAY DIRECTED Do not start before November 30, 2021. JOAQUIN Class: C-II BRENDA: No Please review and advise. Liliana Graham RN documented in [facility] Hospital Discharge instructions Patient Education [...] foods again, start with small amounts of hlrf-vj-uwrphp, low- fat foods. These include apple sauce, [...] increase stomach acid. Don't use aspirin or yuin-ljg-lswkbmb pain and fever medicines, if possible. This includes nonsteroidal anti-inflammatory drugs (NSAIDs). Lose excess weight. Finish eating at least 2 hours before you go to bed or lie down. Raise the head of your bed. [phone] [employer]. [address] [place] [address]. All rights reserved. This information is not intended as a substitute for professional medical care. Always follow yourhealthcare professional's instructions. Follow Up Care 10/20/2021 14:48:46 With:WILL SNELL MD Address: [facility]/[address] [place] [address] [address] [place] [address]- When:2-4 days [facility] 06-06-2022 Evaluation + Plan note Diagnostic Tests Pending * Urinalysis 10/20/21 [facility] 2022 Hospital Discharge instructions Patient Education [...] teeth? Are you happy with your smile? [phone] [employer]. [address] [place] [address]. All rights reserved. This information is not intended as a substitute for professional medical care. Always follow yourhealthcare professional's instructions. Follow Up Care 08/01/2021 21:40:00 With:WILL SNELL MD Address: [facility]/[address] [address] [place] [address] [address] [place] [address]- When:2-4 days [facility] 09-16-2015 History of Past illness Narrative* Problem Noted Date Resolved Date Chronic back pain 01/30/2015 12/29/2021 Pain in joint, lower leg 01/01/2008 022 Abnormal weight gain 05/19/2007 01/15/2010 Lumbago 12/29/2021 documented as of this encounter (statuses as of 12/30/2021) [address]16-2015 History of Past illness Narrative* Problem Noted Date Resolved Date Chronic back pain 01/30/2015 12/29/2021 Pain in joint, lower leg 01/01/2008 022 Abnormal weight gain 05/19/2007 01/15/2010 Lumbago 12/29/2021 documented as of this encounter (statuses as of 01/06/2022) [facility] History of Past illness Narrative* Problem Noted Date Resolved Date Chronic back pain 01/30/2015 12/29/2021 Pain in joint, lower leg 01/01/2008 022 Abnormal weight gain 05/19/2007 01/15/2010 Lumbago 12/29/2021 documented as of this encounter (statuses as of 2022) [facility] History of Past illness Narrative* Problem Noted Date Resolved Date Chronic back pain 01/30/2015 12/29/2021 Pain in joint, lower leg 01/01/2008 022 Abnormal weight gain 05/19/2007 01/15/2010 Lumbago 12/29/2021 documented as of this encounter (statuses as of 03/23/2022) [address]16-2015 History of Past illness Narrative* Problem Noted Date Resolved Date Chronic back pain 01/30/2015 12/29/2021 Pain in joint, lower leg 01/01/2008 022 Abnormal weight gain 05/19/2007 01/15/2010 Lumbago 12/29/2021 documented as of this encounter (statuses as of 04/15/2022) [facility] History of Past illness Narrative* Problem Noted Date Resolved Date Chronic back pain 01/30/2015 12/29/2021 Pain in joint, lower leg 01/01/2008 022 Abnormal weight gain 05/19/2007 01/15/2010 Lumbago 12/29/2021 documented as of this encounter (statuses as of 04/20/2022) [address]16-2015 History of Past illness Narrative* Problem Noted Date Resolved Date Chronic back pain 01/30/2015 12/29/2021 Pain in joint, lower leg 01/01/2008 022 Abnormal weight gain 05/19/2007 01/15/2010 Lumbago 12/29/2021 documented as of this encounter (statuses as of 05/04/2022) [facility] History of Past illness Narrative* Problem Noted Date Resolved Date Chronic back pain 01/30/2015 12/29/2021 Pain in joint, lower leg 01/01/2008 022 Abnormal weight gain 05/19/2007 01/15/2010 Lumbago 12/29/2021 documented as of this encounter (statuses as of 05/20/2022) [facility] History of Past illness Narrative* Problem Noted Date Resolved Date Chronic back pain 01/30/2015 12/29/2021 Pain in joint, lower leg 01/01/2008 022 Abnormal weight gain 05/19/2007 01/15/2010 Lumbago 12/29/2021 documented as of this encounter (statuses as of 06/11/2022) [facility] History of Past illness Narrative* Problem Noted Date Resolved Date Chronic back pain 01/30/2015 12/29/2021 Pain in joint, lower leg 01/01/2008 022 Abnormal weight gain 05/19/2007 01/15/2010 Lumbago 12/29/2021 documented as of this encounter (statuses as of 07/15/2022) [facility] of Past illness Narrative* Problem Noted Date Resolved Date Chronic back pain 01/30/2015 12/29/2021 Pain in joint, lower leg 01/01/2008 022 Abnormal weight gain 05/19/2007 01/15/2010 Lumbago 12/29/2021 documented as of this encounter (statuses as of 07/23/2022) [facility] History of Past illness Narrative* Problem Noted Date Resolved Date Chronic back pain 01/30/2015 12/29/2021 Pain in joint, lower leg 01/01/2008 022 Abnormal weight gain 05/19/2007 01/15/2010 Lumbago 12/29/2021 documented as of this encounter (statuses as of 07/28/2022) [facility] of Past illness Narrative* Problem Noted Date Resolved Date Chronic back pain 01/30/2015 12/29/2021 Pain in joint, lower leg 01/01/2008 022 Abnormal weight gain 05/19/2007 01/15/2010 Lumbago 12/29/2021 documented as of this encounter (statuses as of 08/12/2022) [facility] of Past illness Narrative* Problem Noted Date Resolved Date Chronic back pain 01/30/2015 12/29/2021 Pain in joint, lower leg 01/01/2008 022 Abnormal weight gain 05/19/2007 01/15/2010 Lumbago 12/29/2021 documented as of this encounter (statuses as of 10/19/2022) [facility] of Past illness Narrative* Problem Noted Date Resolved Date Chronic back pain 01/30/2015 12/29/2021 Pain in joint, lower leg 01/01/2008 022 Abnormal weight gain 05/19/2007 01/15/2010 Lumbago 12/29/2021 documented as of this encounter (statuses as of 10/21/2022) [facility] of Past illness Narrative* Problem Noted Date Resolved Date Chronic back pain 01/30/2015 12/29/2021 Pain in joint, lower leg 01/01/2008 022 Abnormal weight gain 05/19/2007 01/15/2010 Lumbago 12/29/2021 documented as of this encounter (statuses as of 11/05/2022) [facility] of Past illness Narrative* Problem Noted Date Resolved Date Abnormal weight gain 05/19/2007 01/15/2010 documented as of this encounter (statuses as of 09/02/2021) [facility] of Past illness Narrative* Problem Noted Date Resolved Date Abnormal weight gain 05/19/2007 01/15/2010 documented as of this encounter (statuses as of 10/15/2021) [facility] History of Past illness Narrative* Problem Noted Date Resolved Date Abnormal weight gain 05/19/2007 01/15/2010 documented as of this encounter (statuses as of 11/28/2021) [facility] of Past illness Narrative* Problem Noted Date Resolved Date Abnormal weight gain 05/19/2007 01/15/2010 documented as of this encounter (statuses as of 11/28/2021) [facility] No data available for this section [facility] Evaluation note* Diagnosis Degeneration of cervical intervertebral disc- Primary documented in this encounter [facility]* Diagnosis Degeneration of cervical intervertebral disc documented in this encounter [facility]* Diagnosis Degeneration of cervical intervertebral disc documented in this encounter [facility] note* Diagnosis Degeneration of cervical intervertebral disc documented in this encounter [facility]* Diagnosis Degeneration of cervical intervertebral disc [facility]* Diagnosis Fibromyalgia- Primary Mylagia and myositis, unspecified Degeneration of intervertebral disc of lumbar region Lumbar spondylosis Lumbosacral spondylosis without myelopathy Sacroiliitis (HCC) Sacroiliitis, not elsewhere classified Degeneration of intervertebral disc of cervical region Chronic knee pain, unspecified laterality documented in this encounter [facility] noteNo assessment information availableWThe [facility] Work Phone: Evaluation note* Diagnosis Degeneration of cervical intervertebral disc documented in this encounter [facility]* Diagnosis Fibromyalgia- Primary Mylagia and myositis, unspecified Degeneration of intervertebral disc of lumbar region Lumbar spondylosis Lumbosacral spondylosis without myelopathy Sacroiliitis (HCC) Sacroiliitis, not elsewhere classified Degeneration of intervertebral disc of cervical region Chronic knee pain, unspecified laterality documented in this encounter [facility]* Diagnosis Degeneration of cervical intervertebral disc documented in this encounter [facility]* Diagnosis Degeneration of cervical intervertebral disc- Primary Fibromyalgia Mylagia and myositis, unspecified Degeneration of intervertebral disc of lumbar region Lumbar spondylosis Lumbosacral spondylosis without myelopathy Sacroiliitis (HCC) Sacroiliitis, not elsewhere classified Chronic knee pain, unspecified laterality documented in this encounter [facility]* Diagnosis Fibromyalgia- Primary Mylagia and myositis, unspecified Degeneration of intervertebral disc of lumbar region Lumbar spondylosis Lumbosacral spondylosis without myelopathy Degeneration of cervical intervertebral disc Sacroiliitis (HCC) Sacroiliitis, not elsewhere classified Chronic knee pain, unspecified laterality documented in this encounter [facility]* Diagnosis Degeneration of intervertebral disc of lumbar region documented in this encounter [facility]* Diagnosis Fibromyalgia Mylagia and myositis, unspecified documented in this encounter [facility]* Diagnosis Degeneration of intervertebral disc of lumbar region documented in this encounter [facility] Center[facility] note No data available for this section [facility] Reason for referral (narrative)No reason for referral information availableWThe [facility] Hospital Work Phone: Summary Purpose Family History No Family History Records Found Relationship Condition Age at Onset Recorded Date/T zenon father Asthma Unknown Cardiac disease Unknown Osteoporosis Unknown mother Arthritis Unknown Diabetes mellitus Unknown Disorder of thyroid Unknown brother Cerebrovascular accident (CVA) Unknown sister Malignant neoplasm of breast Unknown Advance Directives No Advanced Directives Records Found Advance Directive Response Recorded Date/ Time Living Will No September 06, 2020 9:35am Power of Meeting Coordinator No September 06 9:35am Advance Directive Response Recorded Date/ Time Living Will No September 06, 2020 10:35am Power of Meeting Coordinator No September 06 10:35am Advance Directive Response Recorded Date/ Time Living Will No April 25, 023 3:44pm Power of Meeting Coordinator No April 25, 2023 3:44pm Advance Directive Response Recorded Date/ Time Living Will No April 25, 2 023 4:44pm Power of Meeting Coordinator No April 25, 2023 4:44pm Chief Complaint and Reason for Visit Chief Complaint CHILLS Chief Complaint CHILLS WITHOUT FEVER Chief Complaint CHILLS WITHOUT FEVER fall Chief Complaint CHILLS WITHOUT FEVER fall MILD COGNITIVE IMPAIRMENT Chief Complaint CHILLS WITHOUT FEVER fall MILD COGNITIVE IMPAIRMENT MILD COGNITIVE IMPAIRMENT Chief Complaint CHILLS WITHOUT FEVER fall MILD COGNITIVE IMPAIRMENT MILD COGNITIVE IMPAIRMENT MILD COGNITIVE IMPAIRMENT Chief Complaint fall MILD COGNITIVE IMPAIRMENT MILD COGNITIVE IMPAIRMENT MILD COGNITIVE IMPAIRMENT Cough Chief Complaint MILD COGNITIVE IMPAI RMENT MILD COGNITIVE IMPAIRMENT MILD COGNITIVE IMPAIRMENT Cough Chief Complaint Admit Date SCREENING September 29, 2024 6:33p m Additional Source Comments INFORMATION SOURCE (unrecogn ized section and content) DATE CREATED AUTHOR 10/31/2019 [facility] DATE CREATED AUTHOR AUTHOR'S ORGANIZ ATION 12/29/2021 [facility] ([place]) DATE CREATED AUTHOR AUTHOR'S ORGANIZ ATION 10/25/2022 [facility] DATE CREATED AUTHOR AUTHOR'S ORGANIZ ATION 11/06/2022 [facility] DATE CREATED AUTHOR AUTHOR'S ORGANIZ ATION 10/11/2024 [facility] Source Comments (unrecognize d section and content) In the event this informatio n is protected by the Federal Confidentiality of Alcohol and Drug Abuse Patient Records regulations: The Federal rules restrict any use of the information to criminally investigate or prosecute any alcohol or drug abuse patient.[facility] CenterIn the event this information is protected by the Federal Confidentiality of Alcohol and Drug Abuse Patient Records regulations: The Federal rules restrict any use of the information to criminally investigate or prosecute any alcohol or drug abuse patient.[facility] CenterIn the event this information is protected by the Federal Confidentiality of Alcohol and Drug Abuse Patient Records regulations: The Federal rules restrict any use of the information to criminally investigate or prosecute any alcohol or drug abuse patient.[facility] CenterIn the event this information is protected by the Federal Confidentiality of Alcohol and Drug Abuse Patient Records regulations: The Federal rules restrict any use of the information to criminally investigate or prosecute any alcohol or drug abuse patient.[facility] CenterIn the event this information is protected by the Federal Confidentiality of Alcohol and Drug Abuse Patient Records regulations: The Federal rules restrict any use of the information to criminally investigate or prosecute any alcohol or drug abuse patient.[facility] CenterIn the event this information is protected by the Federal Confidentiality of Alcohol and Drug Abuse Patient Records regulations: The Federal rules restrict any use of the information to criminally investigate or prosecute any alcohol or drug abuse patient.[facility] CenterIn the event this information is protected by the Federal Confidentiality of Alcohol and Drug Abuse Patient Records regulations: The Federal rules restrict any use of the information to criminally investigate or prosecute any alcohol or drug abuse patient.[facility] CenterIn the event this information is protected by the Federal Confidentiality of Alcohol and Drug Abuse Patient Records regulations: The Federal rules restrict any use of the information to criminally investigate or prosecute any alcohol or drug abuse patient.[facility] CenterIn the event this information is protected by the Federal Confidentiality of Alcohol and Drug Abuse Patient Records regulations: The Federal rules restrict any use of the information to criminally investigate or prosecute any alcohol or drug abuse patient.[facility] CenterIn the event this information is protected by the Federal Confidentiality of Alcohol and Drug Abuse Patient Records regulations: The Federal rules restrict any use of the information to criminally investigate or prosecute any alcohol or drug abuse patient.[facility] CenterIn the event this information is protected by the Federal Confidentiality of Alcohol and Drug Abuse Patient Records regulations: The Federal rules restrict any use of the information to criminally investigate or prosecute any alcohol or drug abuse patient.[facility] CenterIn the event this information is protected by the Federal Confidentiality of Alcohol and Drug Abuse Patient Records regulations: The Federal rules restrict any use of the information to criminally investigate or prosecute any alcohol or drug abuse patient.[facility] CenterIn the event this information is protected by the Federal Confidentiality of Alcohol and Drug Abuse Patient Records regulations: The Federal rules restrict any use of the information to criminally investigate or prosecute any alcohol or drug abuse patient.[facility] CenterIn the event this information is protected by the Federal Confidentiality of Alcohol and Drug Abuse Patient Records regulations: The Federal rules restrict any use of the information to criminally investigate or prosecute any alcohol or drug abuse patient.[facility] CenterIn the event this information is protected by the Federal Confidentiality of Alcohol and Drug Abuse Patient Records regulations: The Federal rules restrict any use of the information to criminally investigate or prosecute any alcohol or drug abuse patient.[facility] CenterIn the event this information is protected by the Federal Confidentiality of Alcohol and Drug Abuse Patient Records regulations: The Federal rules restrict any use of the information to criminally investigate or prosecute any alcohol or drug abuse patient.[facility] CenterIn the event this information is protected by the Federal Confidentiality of Alcohol and Drug Abuse Patient Records regulations: The Federal rules restrict any use of the information to criminally investigate or prosecute any alcohol or drug abuse patient.[facility] CenterIn the event this information is protected by the Federal Confidentiality of Alcohol and Drug Abuse Patient Records regulations: The Federal rules restrict any use of the information to criminally investigate or prosecute any alcohol or drug abuse patient.[facility] CenterIn the event this information is protected by the Federal Confidentiality of Alcohol and Drug Abuse Patient Records regulations: The Federal rules restrict any use of the information to criminally investigate or prosecute any alcohol or drug abuse patient.[facility] CenterIn the event this information is protected by the Federal Confidentiality of Alcohol and Drug Abuse Patient Records regulations: The Federal rules restrict any use of the information to criminally investigate or prosecute any alcohol or drug abuse patient.[facility] Care Teams (unrecognized sec tion and content) [employer] Relationship Specialty Start Date End Date Channing, Yobany Chi PCP - General Family Practice 11/20/11 [employer] Relationship Specialty Start Date End Date Channing, Yobany Chi PCP - General Family Practice 11/20/11 [employer] Relationship Specialty Start Date End Date Channing, Yobany Chi PCP - General Family Practice 11/20/11 [employer] Relationship Specialty Start Date End Date Channing, Yobany Chi PCP - General Family Practice 11/20/11 [employer] Relationship Specialty Start Date End Date Channing, Yobany Chi PCP - General Family Practice 11/20/11 [employer] Relationship Specialty Start Date End Date Channing, Yobany Chi PCP - General Family Medicine 11/20/11 [employer] Relationship Specialty Start Date End Date Channing, Yobany Chi PCP - General Family Medicine 11/20/11 [employer] Relationship Specialty Start Date End Date Channing, Yobany Chi PCP - General Family Medicine 11/20/11 [employer] Relationship Specialty Start Date End Date Channing, Yobany Chi PCP - General Family Medicine 11/20/11 [employer] Relationship Specialty Start Date End Date Channing, Yobany Chi PCP - General Family Medicine 11/20/11 [employer] Relationship Specialty Start Date End Date Channing, Yobany Chi PCP - General Family Medicine 11/20/11 Team Status: Active Member Role Status Dates Dr. Yobany Snell MD Family Provider Active Dr. Yobany Snell MD Primary Care Provider Active Team Status: Inactive Member Role Status Dates Dr. Yobany Snell MD Primary Care Provider, Attending Provider Active Team Status: Active Member Role Status Dates Dr. Yobany Snell MD Primary Care Provi renetta, Attending Provider, Referring Provider Active [employer] Relationship Specialty Start Date End Date Yobany Snell Chi PCP - General Family Medicine 11/20/11 [employer] Relationship Specialty Start Date End Date Channing, Yobany Chi PCP - General Family Medicine 11/20/11 [employer] Relationship Specialty Start Date End Date Channing, Yobany Chi PCP - General Family Medicine 11/20/11 [employer] Relationship Specialty Start Date End Date Channing, Yobany Chi PCP - General Family Medicine 11/20/11 [employer] Relationship Specialty Start Date End Date Channing, Yobany Chi PCP - General Family Medicine 11/20/11 [employer] Relationship Specialty Start Date End Date Channing, Yobany Chi PCP - General Family Medicine 11/20/11 Team Status: Inactive Member Role Status Dates Dr. Yobany Snell MD Primary Care Provi renetta, Attending Provider, Referring Provider Active Team Status: Inactive Member Role Status Dates Dr. Yobany Snell MD Primary Care Provider Active Dr. Zi San MD Emergency Provider Active Team Status: Inactive Member Role Status Dates Dr. Yobany Snell MD Primary Care Provider Active Dr. Zi San MD Attending Provider, Emergency Provider Active Team Status: Active Member Role Status Dates Dr. Yobany Snell MD Primary Care Provider Active Team Status: Inactive Member Role Status Dates Dr. Yobany Snell MD Primary Care Provider Active Start: April 17, 2024 End: April 17, 2024 Dr. Yobany Snell MD Attending Provider Active Start: April 17, 2024 End: April 17, 2024 Team Status: Inactive Member Role Status Dates Dr. Yobany Snell MD Primary Care Provider Active Start: July 18, 2024 End: July 18, 2024 Dr. Yobany Snell MD Attending Provider Active Start: July 18, 2024 End: July 18, 2024 Team Status: Active Member Role Status Dates Jaswinder Muñiz MD Primary Care Provider Active Team Status: Inactive Member Role Status Dates Jaswinder Muñiz MD Primary Care Provider Active St art: September 04, 2024 End: September 04, 2024 Jaswinder Muñiz MD Attending Provider Active Start : September 04, 2024 End: September 04, 2024 Jaswinder Muñiz MD Referring Provider Active Start : September 04, 2024 End: September 04, 2024 Team Status: Inactive Member Role Status Dates Jaswinder Muñiz MD Primary Care Provider Active St art: September 29, 2024 End: September 29, 2024 Jaswinder Muñiz MD Attending Provider Active Start : September 29, 2024 End: September 29, 2024 Jaswinder Muñiz MD Referring Provider Active Start : September 29, 2024 End: September 29, 2024 Reason for Visit (unrecogniz ed section and content) Reason Onset Date Comments Refill Request 11/28/2021 Reason Onset Date Comments Refill Request 12/29/2021 [...] and content) Care Team Personnel Name: WILL SNELL MD Member Role: Primary Care Physician Address: Address: [facility] [place] [address]- Care Team Related Persons Name: NONE, Care Team Personnel Name: WILL SNELL MD Member Role: Primary Care Physician Address: Address: [facility] Care Team Related Persons Name: NONE, Goals (unrecognized section and content) Goals may be documented in a n alternate section FOR RECORDS PERTAINING TO PATIENTS WHO ARE [...] BE BASED ON THE PRIMARY CLINICAL RECORDS. [facility] [email or web address] [facility]. provides no warranty or guarantee of the accuracy or completeness of information in this document.
[2024-10-28 20:46] VITALS: BP 113/79; PULSE 82; O2SAT 93
[2024-10-28 21:38] VITALS: BP 118/72; PULSE 79; RESP 16; TEMP 36.7; O2SAT 92
== END 2024-10-28 21:39 | disposition home or self-care (01) ==
PROVIDERS: Emergency Provider Emergency Medicine; PCP Family Medicine; Visit Provider Emergency Medicine
DX: S39.012A Strain of muscle, fascia and tendon of lower back, initial encounter (principal); X58.XXXA Exposure to other specified factors, initial encounter; F17.210 Nicotine dependence, cigarettes, uncomplicated
CPT/HCPCS: 74176; 80053; 81001; 85025; 96374; 96375; 99283; A4216; J2405

== ENCOUNTER 2024-11-18 05:43 | Emergency (ER) | payer MEDICARE, SELFPAY ==
[2024-11-18 05:44] VITALS: BP 147/84; PULSE 90; RESP 18; TEMP 36.7; O2SAT 95; BMI 32.8
--- NOTE | 2024-11-18 05:50 | EDS_ITS ---
HPI History of Present Illness Chief Complaint: Lower Extremity Injury Detail of Chief Complaint: Right foot trauma Informant: patient Onset/Context/Timing Onset: Today and Hours (Approximate 1 hour ago) Mechanism/Context: Blunt Injury Location of pain/injuries: Right foot Location: Foot mid Current Severity: Mild Maximum Severity: Severe Worsened by: Attempt to weight-bear Relieved by: Nothing Associated Symptoms Associated Symptoms: Positive for Inability to ambulate; Negative for Parasthesias, Weakness, Loss of function, Loss of consciousness or Amnesia Narrative Narrative: Patient is an elderly woman. She sustained injury to her right foot. She arrived by squad because she cannot put weight on it. This occurred approximate 1 hour ago. She has no allergies. She has history of osteoarthritis, anxiety depression and hyperlipidemia. Prior similar symptoms: No Recent Illness/[facility] Medical History Vitamin D deficiency Osteoarthritis Chronic pain Depression Anxiety Hyperlipidemia Home Medications ?Medication ?Instructions ?Recorded ?Last Taken ?Type lamotrigine 200 mg tablet 400 mg PO DAILY 08/26/20 Unk nown History pantoprazole 40 mg tablet,delayed 40 mg PO DAILY #30 t abs 09/16/20 Unknown Rx release benztropine 1 mg tablet 1 mg PO DAILY 04/25/23 Unkno wn History galantamine 16 mg 24 hr 16 mg PO DAILY 04/25/23 Unkn own History capsule,extended release methylprednisolone 4 mg tablets in See Rx Instructions PO .COMPLEX 11/18/24 Unknown Rx a dose pack (Medrol (Tank)) #21 tabs oxycodone-acetaminophen 5 mg-325 1 tab PO Q6H PRN PRN pain 5 days 11/18/24 Unknown Rx mg tablet #20 TABLETS Allergy/AdvReac Type Severity Reaction Status Date / Time No Known Allergies Allergy Verified 11/18/24 05:43 Family History Father Asthma Heart disease Osteoporosis Mother Arthritis Diabetes Thyroid disorder Brother CVA (cerebral vascular accident) Sister Breast cancer Surgical History Hx of colonoscopy Hx of exploratory laparotomy Social History household members: family housing: house Smoking Status: Current every day smoker tobacco type: cigarettes second hand exposure: No alcohol intake: never substance use type: does not use caffeine: Yes ROS ROS ED Musculoskeletal Musculoskeletal: Reports other Details: Foot pain, swelling and bruising ; Denies arthralgias or myalgias Integumentary Denies Abrasions or rash Neurologic Neurologic: Denies paresthesias Hematologic/Lymphatic Hematologic/Lymphatic: Denies easy bleeding or easy bruising EXAM Physical Exam Const Vital Signs: 11/18/24 05:44 Temperature 98.1 F Temperature Source Oral Pulse Rate 90 Respiratory Rate 18 Blood Pressure 147/84 H Blood Pressure Mean 105 Pulse Ox 95 Oxygen Delivery Method Room Air Positive well nourished and well developed General Appearance ED: well developed; Negative for NAD HEENT HEENT Narrative: Head is normocephalic. Ears are normal. Nares are patent. Teeth are normal. atraumatic Eyes PERRL and EOMs intact bilaterally Resp normal respiratory effort Cardio regular rhythm Rate: regular rate Extremity Negative for normal to inspection or full ROM Extremity Narrative: There is swelling and ecchymosis noted midfoot predominately lateral side. There is no pain ovation over the lateral or medial malleolus. She has pain ovation over the midfoot/3rd, 4th and 5th metatarsal. PT pulses palpable. Neuro oriented x3 and CN's II-XII intact bilaterally Jefferson Coma Scale: document GCS findings Spontaneous Obeys Commands Oriented 15 Sensorium / Orientation: alert Psych mental status grossly normal and thought process normal Skin Skin Narrative: Bruising noted right foot PROC Procedures Lower Extremity Splints Lower Extremity Splint: Plaster and - (Short leg posterior splint) Splint Fabrication: Fabricated Location: Right MDM MDM MDM Narrative Medical decision making narrative: X-ray was obtained to the determine if this is a fracture versus strain. Patient was medicated with [place] 5/325. Radiography Chest X-Ray - ED: Read by ED Physician (Three-view x-ray of the right foot was independently reviewed interpreted by me. Patient has fracture of the 2nd, 3rd and 4th metatarsal. The fourth metatarsal is comminuted. The 3rd and 4th are transverse near the base. They are not intra-articular.) Diagnostic Testing: Clinical Impression(s) from Imaging Studies Foot X-Ray 11/18/24 06:00 IMPRESSION: Fractures of the 3rd and 4th metatarsal shafts, as described. Possible fracture of the 2nd metatarsal. Reading Location: [facility] Discharge Plan Triage Chief Complaint: Lower Extremity Injury ED Provider: Benjamin Gilbert Dx/Rx/DC Orders Clinical Impression: Fracture of fourth metatarsal bone of right foot, Fracture of third metatarsal bone of right foot, Closed fracture of second metatarsal bone of right foot, Elevated blood-pressure reading without diagnosis of hypertension Instructions: ED Fracture, Foot Prescriptions: New oxycodone-acetaminophen 5-325 mg tablet 1 tab PO Q6H PRN PRN (Reason: pain) 5 Days Qty: 20 0RF methylprednisolone [Medrol (Tank)] 4 mg tablets,dose pack See Rx Instructions .ROUTE .COMPLEX Qty: 21 0RF Rx Instructions: for 6 days No Action lamotrigine 200 mg tablet 400 mg PO DAILY pantoprazole 40 mg tablet,delayed release (DR/EC) 40 mg PO DAILY Qty: 30 4RF benztropine 1 mg tablet 1 mg PO DAILY galantamine 16 mg capsule,ext rel. pellets 24 hr 16 mg PO DAILY Primary Care Provider: Jaswinder Muñiz Referrals: Jaswinder Muñiz MD [Primary Care Provider] - Alex Rodrigez DPM [Med Staff - Active Staff] - 1 Week Activity Restrictions/Additional Instructions: 1. You cannot get the splint wet. 2. Keep your toes elevated 3. You cannot put any weight on your foot 4. Take pain medicine as prescribed 5. Apply ice 6-10 times a day Print Language: Turkish Disposition Disposition: Home, Self Care
[2024-11-18] MEDS: HYDROcodone Bitartrate/Apap 5/325 Tablet PO (05:52)
--- NOTE | 2024-11-18 06:00 | RAD_ITS ---
PROCEDURE: FOOT MIN 3 VIEWS 11/18/2024 REASON FOR EXAM: INJURY/PAIN TECHNIQUE: FOOT MIN 3 VIEWS COMPARISON: None. FINDINGS: There is a comminuted fracture of the shaft of the 4th metatarsal. There is a nondisplaced transverse fracture of the shaft of the 3rd metatarsal. There is a possible fracture of the base of the shaft of the 2nd metatarsal. No other fractures are evident. There are no significant joint space abnormalities of the foot. There is soft tissue swelling over the dorsum of the foot. RAD/Foot min 3 Views IMPRESSION: Fractures of the 3rd and 4th metatarsal shafts, as described. Possible fractur e of the 2nd metatarsal. Reading Location: [id number]
--- NOTE | 2024-11-18 06:00 | RAD_ITS ---
PROCEDURE: FOOT MIN 3 VIEWS 11/18/2024 REASON FOR EXAM: INJURY/PAIN TECHNIQUE: FOOT MIN 3 VIEWS COMPARISON: None. FINDINGS: There is a comminuted fracture of the shaft of the 4th metatarsal. There is a nondisplaced transverse fracture of the shaft of the 3rd metatarsal. There is a possible fracture of the base of the shaft of the 2nd metatarsal. No other fractures are evident. There are no significant joint space abnormalities of the foot. There is soft tissue swelling over the dorsum of the foot. RAD/Foot min 3 Views IMPRESSION: Fractures of the 3rd and 4th metatarsal shafts, as described. Possible fractur e of the 2nd metatarsal. Reading Location: [id number]
--- OUTSIDE RECORDS SUMMARY | 2024-11-18 06:23 | XMS RPT_ITS | CCD ---
Author Organization [facility] [employer] Care Team Providers Care [employer] Law Clerk Name Role Phone Lisette Rees Unavailable Unavailable Lisette Rees Unavailable Unavailable CHANNING PATEL, DR SOLIS Primary Care Physician Channing, Yobany Chi Primary Care Provider [phone] CHANNING PATEL, DR SOLIS Primary Care Physician Channing, Yobany Chi Primary Care Provider Channing, Yobany Chi Primary Care Provider Channing, Yobany Chi Primary Care Provider CHANNING, YOBANY CHI [...] PATEL, Dr. Yobany Paz Primary Care Provider Dr. Yobany Snell MD, Chi Attending Provider Dr. Yobany Snell MD, Chi Primary Care Provider Channing PATEL, Dr. Yobany Paz Attending Provider [phone] Jaswinder Muñiz MD Primary Care Provider Jaswinder Muñiz MD Attending Provider Jaswinder Muñiz MD Referring Provider Dr. Abdirizak Perla MD Emergency Provider [phone] Channing, Yobany Chi Primary Care Unavailable Channing, [...] Chalon Attending Unavailable Antonino, Chalon Referring Unavailable Sibilia, Abrahan V Attending Unavailable Sibilia, [...] Chalon Attending Unavailable Antonino, Chalon Referring Unavailable Abdirizak Perla Attending Unavailable Antonino, Chalon Primary Care Unavailable Allergies Allergy Classification Reported Allergen(s) Allergy Type Date of Onset Reaction(s) Facility (20 sources) gabapentin; Translations: [gabapentin] Drug Allergy 01-31-2013 Rash [facility] Work Phone: (4 sources) levoFLOXacin; Translations: [levofloxacin] Drug Allergy Tongue swelling [facility] Work Phone: Medications Current Medications Medication Drug Class(es) Dates Sig (Normalized) Sig (Original) acetaminophen 325 mg oral capsule (4 sources) Start: 08-24-2018 acetaminophen 325 mg oral capsule Dose : 650 mg =, Oral, q6h, PRN Pain, scale 1-3, # 20 cap(s), 0 Refill(s), Pharmacy: [facility]/pharmacy #[id number] Start Date: 08/24/18 Status: Ordered benztropine mesylate [...] 07-19-2015 FENTANYL 50 MC G/HR PT72 FENTANYL [id number] [place] [place]: 07-19-2015 FENTANYL 75 MCG/HR PT72 ever y 72 hrs FENTANYL [id number] [place] [place] Comment on above: APPLY 1 [...] BID, # 1 EA, 0 Refill(s), Pharmacy: [id number] 152.4, cm, 10/03/19 13:39:00 EDT, Height, kg, 10/03/19 13:39:00 EDT, Dosing Weight Start Date: 10/03/19 Status: Ordered 120 actuat fluticasone propionate 0.11 mg/actuat metered dose inhaler (2 sources) Corticosteroid Start: 10-03-19 take 1 puff(s) by inhalation twice daily Flovent HFA 110 mcg/inh inhalation aerosol See Instructions, 1 puff(s) Inhalation BID, # 1 EA, 0 Refill(s), Pharmacy: [id number] 152.4, cm, 10/03/19 13:39:00 EDT, Height, kg, 10/03/19 13:39:00 EDT, Dosing Weight Start Date: 10/03/19 Status: Ordered 24 hr galantamine hydrobromide 16 mg extended release oral capsule (14 sources) Start: 04-25-20 take 1 capsule by [...] Start: 02-06-2020 take 2 tablets by mo [facility] once daily Lamotrigine 200 mg tablet Active 400 mg PO DAILY August 26, 2020 12:00am Start: 02-06-2020 take 200 mg by mouth twice daily Lamotrigine Active 200 MG PO TWICE A DAY August 25, 2020 11:00pm Start: 07-19-2015 LAMOTRIGINE 20 0 MG TABS daily LAMOTRIGINE [id number] [facility] [place] Start: 03-08-2015 End: 08-26-2020 Lamotrigine 150 MG tablet Discontinued 200 mg PO DAILY March 08, 2015 12:00am August 26, 2020 2:02pm Start: 03-08-2015 End: 08-26-2020 take 200 mg by mouth once daily Lamotrigine Discontinu ed 200 MG PO DAILY March 08, 2015 12:00am August 26, 2020 2:02pm take 2 tablets by mo uth once daily lamoTRIgine 25 mg tablet Take 50 mg by mouth once daily. 0 Active End: 07-19-2015 take 1 tablet by mouth once daily LAMOTRIGINE 150 MG TABS One tablet by mouth daily LAMOTRIGINE [id number] [facility] [place] Comment on above: Take 50 [...] Status: Ordered omeprazole 40 mg oral tablet (19 sources) Proton Pump Inhibitor Start: 9 take [...] LEVOTHYROXINE SODIUM 50 MCG TABS LEVOTHYROXINE SODIUM [id number] [facility] [place] Start: 03-08-2015 End: 04-25-2023 take 1 tablet by mouth once daily Levothyroxine 25 MCG tablet Discontinued 25 ug PO DAILY March 08, 2015 12:00am April 25, 2023 4:48pm take 1 tablet by ivvien th once daily Levothyroxine 25 mcg cap [...] Start: 07-19-2015 PERCOCET 5-325 MG TABS OXYCODONE-ACETAMINOPHEN [id number] [facility] [place] Comment on above: Take 1 tablet by vivien th every 8 hours as needed. Albuterol (4 sources) beta2-Adrenergic Agonist Start: 2019 End: 2019 take 2 puff(s) by inhalation every four hours as needed for wheezing Ventolin HFA MDI (90 mcg/inh) inhalation aerosol 2 puff(s), Inhalation, q4h, PRN as needed for wheezing, # 1 EA, 1 Refill(s), Pharmacy: [id number] 152.4, cm, 10/03/19 13:39:00 [...] tablet by mouth three times daily CLONAZEPAM [id number] [place] [place] Comment on above: Take one(1) [...] above: Take 1 tablet by vivien th twice daily for 2 days. Take for symptoms of opiate withdrawal until fentanyl prescription due to fill Take 1 tablet by vivien th twice daily for 7 days. Take for symptoms of opiate withdrawal DULoxetine 60 mg delayed release oral capsule (16 sources) Serotonin and Norepinephrine Reuptake Inhibitor Start: 01-15-2010 duloxetine hcl(CYMBALTA 60 MG CAP) Take two tablet daily. 0 01/15/2010 Active End: 07-19-2015 take 1 tablet by mouth once daily CYMBALTA CPEP One tablet by mouth daily 600mg DULOXETINE HCL CPEP [id number] [facility] [place]: 07-19-2015 take 1 tablet by mouth once daily CYMBALTA CPEP One tablet by mouth daily 300mg DULOXETINE HCL CPEP [id number] [facility] [place] take 1 tablet by vivien th once daily CYMBALTA CPEP One tablet by mouth daily 300mg DULOXETINE HCL CPEP [id number] Poppy [place] take 1 tablet by vivien th once daily CYMBALTA CPEP One tablet by mouth daily 600mg DULOXETINE HCL CPEP [id number] Poppy [place] Comment on above: Take two tablet nathaly y. furosemide 40 mg oral tablet (18 sources) Loop Diuretic Start: 03-08-20 15 End: 08-27-19 21 take 1 tablet by mouth once daily Furosemide 40 MG tablet Discontinued 40 mg PO DAILY March 08, 2015 12:00am August 26, 2020 2:02pm gabapentin 300 mg oral capsule (4 sources) Anti-epileptic Agent End: 07-19-19 16 take 1 tablet by mouth twice daily GABAPENTIN 300 MG CAPS One tablet by mouth twice daily GABAPENTIN [id number] [place] [place] hydrOXYzine hydrochloride 25 mg oral tablet (17 sources) Antihistamine Start: 12-04-19 22 take 0.5-3 tablets by mouth once daily hydrOXYzine HCl (ATARAX) 25 mg tablet take 1/2 to 3 tablets by mouth daily if needed 0 12/03/2021 Active Comment on above: take 1/2 to 3 tablet s by mouth daily if needed ipratropium bromide 0.042 mg/actuat metered dose nasal spray (16 sources) Anticholinergic Start: 08-27-19 End: 04-25-20 23 Ipratropium [place] 42 mcg (0.06 %) spray,non-aerosol Discontinued 1 NMA INTRANASAL DAILY August 26, 2020 12:00am April 25, 2023 4:49pm Start: 08-26-2020 End: 04-25-2023 Ipratropium [place] Disconti nued 1 SPRAY INTRANASAL DAILY August 26, 2020 12:00am April 25, 2023 4:49pm levocetirizine dihydrochloride 5 mg oral tablet (16 sources) Histamine-1 Receptor Antagonist Start: 08-26-2020 End: 04-25-2023 take 1 tablet by mouth once daily Levocetirizine 5 mg tablet Discontinued 5 mg PO DAILY August 26, 2020 12:00am April 25, 2023 4:48pm LINACLOTIDE (2 sources) Guanylate Cyclase-C Agonist Start: 07-19-2015 LINZESS 145 MCG CAPS daily LINACLOTIDE [id number] [place] meloxicam 7.5 mg oral tablet [...] hydrochloride 10 mg oral tablet (3 sources) J-nfgydf-I-aspartat e Receptor Antagonist take 1 tablet by mouth twice daily memantine (NAMENDA) 10 mg tablet Take 10 mg by mouth twice daily. 0 Active Comment on above: Take 10 mg by mouth twice daily. MULTIVITAMIN TAB (20 sources) Start: MULTIVITAMIN TAB Take one(1) tablet daily. 0 [...] hours. ondansetron 4 mg disintegrating oral tablet (11 sources) Serotonin-3 Receptor Antagonist Start: 023 End: 024 take 1 tablet by mouth every eight hours as needed for nausea Ondansetron 4 mg tablet,disintegrati ng Discontinued 4 mg PO EVERY 8 HOURS NEEDED as needed for Nausea April 25, 2023 1:00am June 24, 2023 2:35pm potassium chloride 10 meq extended release oral capsule (18 sources) Start: 016 POTASSIUM CHLORIDE ER 10 MEQ CR-CAPS 1 twice daily POTASSIUM CHLORIDE [id number] [facility] [place] Start: 03-08-2015 End: 08-26-2020 take 1 tablet by mouth twice daily Potassium Chloride 10 MEQ tablet Discontinued 10 meq PO TWICE A DAY March 08, 2015 12:00am August 26, 2020 2:36pm rOPINIRole 0.5 mg oral tablet (2 sources) Nonergot Dopamine Agonist Start: 07-19-2015 ROPINIROLE HCL 0.5 MG TABS every night ROPINIROLE HCL [id number] [place] sertraline 50 mg oral tablet [...] mg tablet suvorexant 15 mg oral tablet (16 sources) Orexin Receptor Antagonist Start: 7 End: [...] 25, 2023 4:48pm take 1 capsule by [facility] every eight hours as needed tiZANidine HCl 4 mg capsule Take 4 mg by mouth three times daily as needed. 0 Active Comment on above: Take 4 mg by mouth t hree times daily as needed. topiramate 25 mg oral tablet (16 sources) Start: 01-05-2017 End: 08-26-2020 take 2 [...] TRAMADOL HCL 50 MG TABS TRAMADOL HCL [id number] [place] [place] varenicline 1 mg oral tablet (2 sources) Partial Cholinergic Nicotinic Agonist Start: 07-19-2015 CHANTIX 1 MG TABS 1 twice daily VARENICLINE TARTRATE [id number] [facility] [place] Problems Active Problems Problem Classification Problem Date Documented Date Episodic/Chronic Abdominal pain (2 sources) Abdominal pain; Translations: [Unspecified abdominal pain] Onset: 10-20-2021 Episodic Alcohol-related disorders (20 sources) Alcohol dependence; Translations: [Alcohol dependence, uncomplicated] 01-15-2010 Chronic Anxiety disorders (17 sources) Anxiety disorder; Translations: [Anxiety disorder, unspecified] [...] Onset: 01-15-2010 01-15-2010 Chronic E Codes: Fall (11 sources) Fall from bed, initial encounter; Translations: [Fall from bed] 04-25-2023 Episodic Essential hypertension (1 source) Essential (primary) hypertension; Translations: [Essential (primary) hypertension] Onset: 04-24-2024 Chronic Fluid and electrolyte disorders (12 sources) Hypo-osmolality and or hyponatremia; Translations: [Hypo-osmolality [...] disorder] Onset: 01-01-2008 05-25-2016 Chronic Nutritional deficiencies (20 sources) Vitamin D deficiency; Translations: [Vitamin D [...] injuries and conditions due to external causes (11 sources) Closed injury of head; Translations: [Unspecified [...] Tobacco user 03-01-2019 Episodic Residual codes; unclassified (16 sources) History of colonoscopy; Translations: [Other specified postprocedural states] 08-26-2020 Episodic Comment on above: 02/10/2017 Spondylosis; intervertebral disc disorders; other back problems (20 sources) Degeneration of cervical intervertebral disc; Translations: [Other cervical disc degeneration, unspecified cervical region] Onset: 08-18-2017 Chronic Spondylosis; intervertebral disc disorders; other back problems (10 sources) Neck pain; Translations: [Low back pain] Onset: 02-03-2011 02-04-2011 Episodic Sprains and strains (12 sources) Strain of neck muscle; Translations: [Strain of muscle, fascia and tendon at neck level, initial encounter] 04-25-2023 Episodic Substance-related disorders (20 sources) Nondependent mixed drug abuse; Translations: [Other psychoactive substance abuse, uncomplicated] Onset: 01-15-2010 01-15-2010 Chronic Superficial injury; contusion (11 sources) Contusion of right shoulder; Translations: [Contusion [...] current use of drug therapy; Translations: [Other fpc (current) drug therapy] Onset: 11-21-2018 11-26-2021 Episodic Other aftercare (1 source) Other fpc (current) drug therapy; Translations: [Other fpc (current) drug therapy] Onset: 11-26-2021 Episodic Other [...] Test Name Value Interpretation Reference Range Facility Abdomen/Pelvis without Conto n 10-28-2024 Abdomen/Pelvis without Cont [facility] [place] [address] Abdomen/Pelvis without Cont MR#: [id number] Acct: [id number] Name: NAVIN AUGUST I Rep #: [id number] : 1960 F 64 From: Mariaelena Vazquez nd, MD PCP: Dr. Jaswinder Muñiz MD Status: REG ER Study: Abdomen/Pelvis without Cont Date of Exam: 10/15 09/08 Exam# [id number] Ordering Dr: Abdirizak Perla MD PROCEDURE: ABDOMEN/PELVIS WITHOUT CONT 10/28/2024 REASON FOR EXAM: LEFT FLANK PAIN. VERSUS LEFT LOWER POSTERIOR RIB TECHNIQUE: ABDOMEN/PELVIS WITHOUT CONT Noncontrast technique limits evaluation of the abdominal and pelvic viscera. Coronal and Sagittal reconstruction series were provided. One or more dose reduction techniques were used (e.g., Automated exposure control, adjustment of the mA and/or kV according to patient size, use of iterative reconstruction technique). ORAL CONTRAST TYPE: None. COMPARISON: None. FINDINGS: Lung bases: Bibasilar atelectasis. The heart is normal in size. Liver: The unopacified liver is normal in size. No biliary ductal dilation. Gallbladder: No radiopaque stones within the gallbladder. Spleen: Normal in size. Pancreas: The unopacified pancreas is unremarkable. Adrenals: No adrenal mass. Kidneys: No hydronephrosis or nephrolithiasis. Bladder: Distended and unremarkable. Reproductive Organs: Normal uterine size and contour. Ovaries are unremarkable. Bowel: The bowel loops are nondilated. Moderate retained fecal material throughout the colon. No ascites or pneumoperitoneum. Normal appendix. Lymph nodes: Visualization is limited without the use of IV contrast. No lymphadenopathy. Vasculature: Moderate calcific plaque of the aortoiliac vessels. Bones: Mild thoracolumbar spondylosis. CT/Abdomen/Pelvis without Cont IMPRESSION: No acute abdominopelvic finding. Reading Location: [id number] CC: Dr. Jaswinder Muñiz MD; Dr. Abdirizak Perla MD Cylinder Inspector And Tester: Signed Normal [facility] Absolute lymphocyte countOrd ered By: ED PROVIDER on 10-28-2024 Lymphocytes Auto (Unsp spec) [#/Vol] 3.07 10*3/uL 0.83-4.51 [facility] Absolute neutrophil countOrd ered By: ED PROVIDER on 10-28-2024 Neutrophils (Bld) [#/Vol] 6.6 10*3/uL 2.0-7.7 [facility] Anion gap in Serum or Plasma Ordered By: Abdirizak Perla on 10-28-2024 Anion gap [Moles/Vol] 13 mmol/L 5- [facility] Automated lymphocyte count a s percentage of total leukocytesOrdered By: ED PROVIDER on 10-28-2024 Lymphocytes/100 WBC Auto (Unsp spec) 28.2 % - [facility] BUN/creatinine ratioOrdered By: Abdirizak Perla on 10-28-2024 Urea nitrogen/Creatinine [Mass ratio] 12.3 mg/mg 10- [facility] Basophil percentageOrdered B y: ED PROVIDER on 10-28-2024 Basophils/100 WBC (Bld) 0.9 % 0-1 [facility] Bilirubin Test strip Ql (U)O rdered By: ED PROVIDER on 10-28-2024 Bilirubin Ql (U) Negative Negative [facility] Bilirubin, totalOrdered By: Abdirizak Perla on 10-28-2024 Bilirubin [Mass/Vol] 0.20 mg/dL 0.00-1.30 [facility] CBC W/Diff, Automatedon 10-15 Absolute Lymph 3.07 X10 3/uL Normal 0.83-4.51 [facility] Comment on above: Performed By: #### L 500.4050, L100.0100 #### [facility] [address] [place], [address] Absolute Neut 6.6 X10 3/uL Normal 2.0-7.7 [facility] Comment on above: Performed By: #### L 500.4050, L100.0100 #### [facility] [address] [place], [address] Basophils/100 WBC (Bld) 0.9 % Normal 0-1 [facility] Comment on above: Performed By: #### L 500.4050, L100.0100 #### [facility] [address] [place], [address] Eosinophils/100 WBC (Bld) 2.3 % Normal 0-5 [facility] Comment on above: Performed By: #### L 500.4050, L100.0100 #### [facility] [address] [place], [address] Erythrocyte distribution width (RBC) [Ratio] 13.0 % Normal 11.6-14.6 [facility] Comment on above: Performed By: #### L 500.4050, L100.0100 #### [facility] [address] [place], [address] Hematocrit (Bld) [Volume fraction] 39.7 % Normal 37-47 [facility] Comment on above: Performed By: #### L 500.4050, L100.0100 #### [facility] [address] [place], [address] Hemoglobin (Bld) [Mass/Vol] 13.4 g/dL Normal 12.0-15.0 [facility] Comment on above: Performed By: #### L 500.4050, L100.0100 #### [facility] [address] [place], [address] IG% 0.400 Normal 0.0-0.9 [facility] Comment on above: Result Comment: IG% - Immature Granulocytes (promyelocytes, myelocytes and metamyelocytes) > 1% indicates that a LEFT SHIFT is Present. Performed By: #### L 500.4050, L100.0100 #### [facility] [address] [place], [address] Lymphocytes/100 WBC (Bld) 28.2 % Normal 19-41 [facility] Comment on above: Performed By: #### L 500.4050, L100.0100 #### [facility] [address] [place], [address] MCH (RBC) [Entitic mass] 32.1 pg High 27.0-32.0 [facility] Comment on above: Performed By: #### L 500.4050, L100.0100 #### [facility] [address] [place], [address] MCHC (RBC) [Mass/Vol] 33.8 g/dL Normal 32-36 [facility] Comment on above: Performed By: #### L 500.4050, L100.0100 #### [facility] [address] [place], [address] MCV (RBC) [Entitic vol] 95.2 fL Normal 81-99 [facility] Comment on above: Performed By: #### L 500.4050, L100.0100 #### [facility] [address] [place], [address] Monocytes/100 WBC (Bld) 7.1 % Normal 0-10 [facility] Comment on above: Performed By: #### L 500.4050, L100.0100 #### [facility] [address] [place], [address] Neutrophils/100 WBC (Bld) 61.1 % Normal 47-70 [facility] Comment on above: Performed By: #### L 500.4050, L100.0100 #### [facility] [address] [place], [address] Nucleated RBC (Bld) [#/Vol] 0 10*3/uL Normal 0-5 [facility] Comment on above: Performed By: #### L 500.4050, L100.0100 #### [facility] [address] [place], [address] Platelet mean volume (Bld) [Entitic vol] 8.6 fL Normal 6.2-12.0 [facility] Comment on above: Performed By: #### L 500.4050, L100.0100 #### [facility] [address] [place], [address] Platelets (Bld) [#/Vol] 479 10*3/uL High 150-450 [facility] Comment on above: Performed By: #### L 500.4050, L100.0100 #### [facility] [address] [place], [address] RBC (Bld) [#/Vol] 4.17 10*6/uL Low 4.2-5.4 [facility] Comment on above: Performed By: #### L 500.4050, L100.0100 #### [facility] [address] [place], [address] RDW SD 45.4 fl High 35.1-43.9 [facility] Comment on above: Performed By: #### L 500.4050, L100.0100 #### [facility] [address] [place], [address] WBC (Bld) [#/Vol] 10.9 10*3/uL Normal 4.4-11.0 [facility] Comment on above: Performed By: #### L 500.4050, L100.0100 #### [facility] [address] [place], [address] Carbon dioxide, total [Moles /volume] in Central venous bloodOrdered By: Abdirizak Perla on 10-28-2024 CO2 [Moles/Vol] 25.1 mmol/L 21.0-32.0 [facility] Chloride assayOrdered By: Hernandez Perla on 10-28-2024 Chloride [Moles/Vol] 97 mmol/L Low 98-108 [facility] Comprehensive Metabolic Prof ilon 10-28-2024 Albumin [Mass/Vol] 4.7 g/dL Normal 3.4-4.8 [facility] Comment on above: Performed By: #### L 500.4050, L100.0100 #### [facility] [address] [place], [address] Albumin/Globulin [Mass ratio] 1.7 {ratio} Normal 0.9-2.4 [facility] Comment on above: Performed By: #### L 500.4050, L100.0100 #### [facility] [address] [place], [address] ALK PHOS 141 U/L High 35-104 [facility] Comment on above: Performed By: #### L 500.4050, L100.0100 #### [facility] [address] [place], [address] ALT [Catalytic activity/Vol] 10 U/L Normal <=34 [facility] Comment on above: Performed By: #### L 500.4050, L100.0100 #### [facility] [address] [place], [address] AST [Catalytic activity/Vol] 17 U/L Normal <=31 [facility] Comment on above: Performed By: #### L 500.4050, L100.0100 #### [facility] [address] [place], [address] Bilirubin [Mass/Vol] 0.20 mg/dL Normal 0.00-1.30 [facility] Comment on above: Performed By: #### L 500.4050, L100.0100 #### [facility] [address] [place], [address] BUN/CRE 12.3 RATIO Normal 10-20 [facility] Comment on above: Performed By: #### L 500.4050, L100.0100 #### [facility] [address] [place], [address] Calcium [Mass/Vol] 9.6 mg/dL Normal 7.6-11.0 [facility] Comment on above: Performed By: #### L 500.4050, L100.0100 #### [facility] [address] [place], [address] Chloride [Moles/Vol] 97 mmol/L Low 98-108 [facility] Comment on above: Performed By: #### L 500.4050, L100.0100 #### [facility] [address] [place], [address] CO2 [Moles/Vol] 25.1 mmol/L Normal 21.0-32.0 [facility] Comment on above: Performed By: #### L 500.4050, L100.0100 #### [facility] [address] [place], [address] Creatinine [Mass/Vol] 1.06 mg/dL Normal 0.70-1.20 [facility] Comment on above: Performed By: #### L 500.4050, L100.0100 #### [facility] [address] [place], [address] ECRCL 46.75 ml/min Low 50-250 [facility] Comment on above: Performed By: #### L 500.4050, L100.0100 #### [facility] [address] [place], [address] GAP 13 Normal 5-15 [facility] Comment on above: Performed By: #### L 500.4050, L100.0100 #### [facility] [address] [place], [address] GFR/1.73 sq M.predicted among non-blacks MDRD (S/P/Bld) [Vol rate/Area] 58 mL/min/{1.73_m2} Low >60 [facility] Comment on above: Result Comment: mL/m in/1.73m2 CKD-EPI Creatinine Equation (2020) Performed By: #### L 500.4050, L100.0100 #### [facility] [address] [place], [address] Globulin (S) [Mass/Vol] 2.8 g/dL Normal 2.2-4.2 [facility] Comment on above: Performed By: #### L 500.4050, L100.0100 #### [facility] [address] [place], [address] Glucose [Mass/Vol] 125 mg/dL High 70-99 [facility] Comment on above: Performed By: #### L 500.4050, L100.0100 #### [facility] [address] [place], [address] Potassium [Moles/Vol] 3.8 mmol/L Normal 3.3-5.1 [facility] Comment on above: Performed By: #### L 500.4050, L100.0100 #### [facility] [address] [place], [address] Sodium [Moles/Vol] 135 mmol/L Normal 133-145 [facility] Comment on above: Performed By: #### L 500.4050, L100.0100 #### [facility] [address] [place], [address] T PROT 7.6 g/dL Normal 5.9-8.4 [facility] Comment on above: Performed By: #### L 500.4050, L100.0100 #### [facility] [address] [place], [address] Urea nitrogen [Mass/Vol] 13 mg/dL Normal 4-19 [facility] Comment on above: Performed By: #### L 500.4050, L100.0100 #### [facility] [address] [place], [address] Emergency Department Summary on 10-28-[address] [facility] Medical Records Department [address] [place] [address] Emergency Department Summary 10/28/24 MR#: [id number] Acct: [id number] Name: NAVIN AUGUST I Rep #: [id number] : 1960 64 From: Abdirizak Perla MD PCP: Dr. Jaswinder Muñiz MD Status:REG ER Location: ED HPI HPI - GI History of Present Illness Chief Complaint: Flank Pain Detail of Chief Complaint: Left flank pain since yesterday. Denies any fall injury or trauma. Informant: patient and family Abdominal Pain/Flank Pain Onset: Today and Yesterday Context: Gradual Onset Timing: Continuous Quality: Aching and Sharp Current Severity: Mild Maximum Severity: Moderate Worsened by: Nothing Relieved by: Nothing Nausea/Vomiting/Emesis GI Symptom: Negative for Nausea or Vomiting Diarrhea/Melena/Hematochez ia GI Symptom: Negative for Diarrhea, Melena or Hematochezia Associated Symptoms Associated Symptoms: Negative for Dysuria, Frequency, Hematuria or Urgency Narrative Narrative: 64-year-old female past medical history of anxiety depression. Complaint left flank pain for 2 days. Denies any fall injury or trauma. No prior history. No history of kidney stones. No dysuria. No fever. No chest pain. No abdominal pain. No shortness of breath. Nothing particular makes the pain better or worse. Denies any known injury. No worse with movement. Prior similar symptoms: No Recent Illness/Hospitalization: No [facility] Medical History Vitamin D deficiency Osteoarthritis Chronic pain Depression Anxiety Hyperlipidemia Home Medications ???Medication ???Instructions ???Recorded ???Last Taken ???Type lamotrigine 200 mg tablet 400 mg PO DAILY 08/26/20 Unknown H istory pantoprazole 40 mg tablet,delayed 40 mg PO DAILY #30 tabs 09/16/20 Unknown Rx release benztropine 1 mg tablet 1 mg PO DAILY 04/25/23 Unknown His tory galantamine 16 mg 24 hr 16 mg PO DAILY 04/25/23 Unknown Hi story capsule,extended release Allergy/AdvReac Type Severity Reaction Status Date / Time No Known Allergies Allergy Verified 10/28/24 18:46 Family History Father Asthma Heart disease Osteoporosis Mother Arthritis Diabetes Thyroid disorder Brother CVA (cerebral vascular accident) Sister Breast cancer Surgical History Hx of colonoscopy Hx of exploratory laparotomy Social History household members: family housing: house Smoking Status: Current every day smoker tobacco type: cigarettes second hand exposure: No alcohol intake: never substance use type: does not use caffeine: Yes ROS ROS ED ROS Narrative Left flank pain. No other symptoms. Constitutional Constitutional ED: Denies chills or fever(s) ENT ENT ED: Denies ear pain Cardiovascular Cardiovascular: Denies chest pain Respiratory/Chest Respiratory/Chest: Denies cough or dyspnea Gastrointestinal Gastrointestinal: Reports other Details: Left flank/posterior left rib cage pain. ; Denies abdominal pain Genitourinary Genitourinary ED: Denies dysuria or hematuria Musculoskeletal Musculoskeletal: Reports back pain; Denies arthralgias Integumentary Denies abscess Neurologic Neurologic: Denies headache(s) Psychiatric Psychiatric: Denies anxiety Endocrine Endocrinology: Denies polydipsia Hematologic/Lymphatic Hematologic/Lymphatic: Denies easy bleeding Allergic/Immunologic Allergic/Immunologic ED: Denies mouth swelling, tongue swelling or urticaria EXAM Physical Exam Narrative Exam Narrative: Well-appearing 64-year-old female. Vital signs stable afebrile. Accompanied by another woman. No acute distress. H EENT exam pupils round react light. moist mucousmembranes. Neck nontender no lymphadenopathy. Lungs clear to auscultation bilaterally. Heart regular rhythm rate about 90 no murmur. Chest wall and ribs anteriorly nontender. Abdomen soft, nontender, nondistended, normal bowel sounds without peritoneal signs. Moving all 4 extremities. Nontender no edema. Normal strength. Normal range of motion. Back on place he is tender to the left posterior rib cage. There is no redness or warmth. No rash. No shingles. No bruising or signs of trauma. No crepitance. No CVA tenderness. Spine nontender. Neurologically she is awake alert. Answering questions following commands. Const Vital Signs: 10/28/24 18:46 10/28/24 20:46 Temperature 98.1 F Temperature Source Temporal Pulse Rate 93 82 Respiratory Rate 19 H Blood Pressure 165/81 H 113/79 Blood Pressure Mean 109 90 Pulse Ox 97 93 Oxygen Delivery Method Room Air Room Air Positive well nourished and well developed; Ne (more content not included)... Normal [facility] Eosinophil percentageOrdered By: ED PROVIDER on 10-28-2024 Eosinophils/100 WBC (Bld) 2.3 % 0-5 [facility] Erythrocyte distribution wid th ratioOrdered By: ED PROVIDER on 10-28-2024 Erythrocyte distribution width (RBC) [Ratio] 13.0 % 11.6-14.6 [facility] Erythrocyte distribution wid th standard deviationOrdered By: ED PROVIDER on 10-28-2024 Erythrocyte distribution width (RBC) [Ratio] 45.4 fl High 35.1-43.9 [facility] Glomerular filtration rate ( GFR) estimation/1.73 sq m using serum, plasma, or whole bOrdered By: Abdirizak Perla on 10-28-2024 GFR/1.73 sq M.predicted among non-blacks MDRD (S/P/Bld) [Vol rate/Area] 58 mL/min/{1.73_m2} Low >60 [facility] Comment on above: mL/min/1.73m2 CKD-EP I Creatinine Equation (2020) Hematocrit Auto (Bld) [Volum e fraction]Ordered By: ED PROVIDER on 10-28-2024 Hematocrit (Bld) [Volume fraction] 39.7 % 37-47 [facility] Hemoglobin measurementOrdere d By: ED PROVIDER on 10-28-2024 Hemoglobin (Bld) [Mass/Vol] 13.4 g/dL 12.0-15.0 [facility] Immature granulocytes/100 WB C Auto (Bld)Ordered By: ED PROVIDER on 10-28-2024 Immature granulocytes/100 WBC (Bld) 0.400 % 0.0-0.9 [facility] Comment on above: IG% - Immature Granu locytes (promyelocytes, myelocytes and metamyelocytes) > 1% indicates that a LEFT SHIFT is Present. Ketones Test strip Ql (U)Ord ered By: ED PROVIDER on 10-28-2024 Ketones Ql (U) Negative Negative [facility] - Chemistry and C hemistry - challengeOrdered By: Abdirizak Perla on 10-28-2024 AST [Catalytic activity/Vol] 17 U/L <32 [facility] MCV (mean corpuscular volume ) determinationOrdered By: ED PROVIDER on 10-28-2024 MCV (RBC) [Entitic vol] 95.2 fL 81-99 [facility] Mean corpuscular hemoglobin (MCH) determinationOrdered By: ED PROVIDER on 10-28-2024 MCH (RBC) [Entitic mass] 32.1 pg High 27.0-32.0 [facility] Mean corpuscular hemoglobin concentration (MCHC) determinationOrdered By: ED PROVIDER on 10-28-2024 MCHC (RBC) [Mass/Vol] 33.8 g/dL 32-36 [facility] Mean platelet volume determi nationOrdered By: ED PROVIDER on 10-28-2024 Platelet mean volume (Bld) [Entitic vol] 8.6 fL 6.2-12.0 [facility] Microscopic analysis of urin e for red blood cells (RBC)Ordered By: ED PROVIDER on 10-28-2024 Microscopic analysis of urine for red blood cells (RBC) 0 SEEN /hpf 0-5 [facility] Monocyte percentageOrdered B y: ED PROVIDER on 10-28-2024 Monocytes/100 WBC (Bld) 7.1 % 0-10 [facility] Mucus LM Ql (Urine sed)Order ed By: ED PROVIDER on 10-28-2024 Mucus Ql (Urine sed) 0 SEEN /hpf [facility] Neutrophil percentageOrdered By: ED PROVIDER on 10-28-2024 Neutrophils/100 WBC (Bld) 61.1 % 47-70 [facility] Nitrite Test strip Ql (U)Ord ered By: ED PROVIDER on 10-28-2024 Nitrite Ql (U) Negative Negative [facility] Nucleated red blood cell per centageOrdered By: ED PROVIDER on 10-28-2024 Nucleated RBC/100 WBC (Bld) [Ratio] 0 % 0-5 [facility] Platelet countOrdered By: ED PROVIDER on 10-28-2024 Platelets (Bld) [#/Vol] 479 10*3/uL High 150-450 [facility] Potassium measurement (mass/ volume)Ordered By: Abdirizak Perla on 10-28-2024 Potassium (Unsp spec) [Mass/Vol] 3.8 mmol/L 3.3-5.1 [facility] Protein Test strip Ql (U)Ord ered By: ED PROVIDER on 10-28-2024 Protein Ql (U) Negative Negative [facility] RBC Auto (Bld) [#/Vol]Ordere d By: ED PROVIDER on 10-28-2024 RBC (Bld) [#/Vol] 4.17 10*6/uL Low 4.2-5.4 [facility] Serum creatinine measurement (mass/volume)Ordered By: Abdirizak Perla on 10-28-2024 Creatinine [Mass/Vol] 1.06 mg/dL 0.70-1.20 [facility] Serum globulin measurementOr dered By: Abdirizak Perla on 10-28-2024 Globulin (S) [Mass/Vol] 2.8 g/dL 2.2-4.2 [facility] Serum glucose measurement (m ass/volume)Ordered By: Abdirizak Perla on 10-28-2024 Glucose [Mass/Vol] 125 mg/dL High 70-99 [facility] Serum or plasma alanine huggins otransferase (ALT) measurementOrdered By: Abdirizak Perla on 10-28-2024 ALT [Catalytic activity/Vol] 10 U/L <35 [facility] Serum or plasma albumin chace urement (mass/volume)Ordered By: Abdirizak Perla on 10-28-2024 Albumin [Mass/Vol] 4.7 g/dL 3.4-4.8 [facility] Serum or plasma albumin/glob ulin mass ratioOrdered By: Abdirizak Perla on 10-28-2024 Albumin/Globulin [Mass ratio] 1.7 {ratio} 0.9-2.4 [facility] Serum or plasma alkaline venice sphatase measurementOrdered By: Abdirizak Perla on 10-28-2024 ALP [Catalytic activity/Vol] 141 U/L High 35-104 [facility] Serum or plasma calcium chace urement (mass/volume)Ordered By: Abdirizak Perla on 10-28-2024 Calcium [Mass/Vol] 9.6 mg/dL 7.6-11.0 [facility] Serum or plasma urea nitroge n measurement (mass/volume)Ordered By: Abdirizak Perla on 10-28-2024 Urea nitrogen [Mass/Vol] 13 mg/dL 4-19 [facility] Sodium levelOrdered By: Abdirizak Perla on 10-28-2024 Sodium [Moles/Vol] 135 mmol/L 133-145 [facility] Squamous epithelial cells de tection in urine sediment by light microscopyOrdered By: ED PROVIDER on 10-28-2024 Epithelial cells.squamous LM Ql (Urine sed) 0-5 SEEN /hpf - [facility] Total proteinOrdered By: Jeremi Perla on 10-28-2024 Protein [Mass/Vol] 7.6 g/dL 5.9-8.4 [facility] Urinalysis, Completeon 10-28 BACTERIA RARE Normal None Seen [facility] Comment on above: Order Comment: ANDREW CTOR TO SPECIFY Performed By: #### L 500.4050, L100.0100 #### [facility] [address] [place], [address] EPI,SQUAMOUS 0-5 SEEN Normal - [facility] Comment on above: Order Comment: ANDREW CTOR TO SPECIFY Performed By: #### L 500.4050, L100.0100 #### [facility] [address] [place], [address] Mucus Ql (Urine sed) 0 SEEN Normal [facility] Comment on above: Order Comment: ANDREW CTOR TO SPECIFY Performed By: #### L 500.4050, L100.0100 #### [facility] [address] [place], [address] RBC 0 SEEN Normal 0-5 [facility] Comment on above: Order Comment: ANDREW CTOR TO SPECIFY Performed By: #### L 500.4050, L100.0100 #### [facility] [address] [place], [address] WBC 0 SEEN Normal 0-5 [facility] Comment on above: Order Comment: COLLE CTOR TO SPECIFY Performed By: #### L 500.4050, L100.0100 #### [facility] [address] [place], [address] Urine clarityOrdered By: ED PROVIDER on 10-28-2024 Clarity (U) Clear Clear [facility] Urine color determinationOrd ered By: ED PROVIDER on 10-28-2024 Color (U) Straw Yellow [facility] Urine glucose detectionOrder ed By: ED PROVIDER on 10-28-2024 Glucose Ql (U) Normal mg/dl Normal [facility] Urine leukocyte esterase det ection by dipstickOrdered By: ED PROVIDER on 10-28-2024 Leukocyte esterase Test strip Ql (U) Negative Negative [facility] Urine pHOrdered By: ED PROVI MARCELINO on 10-28-2024 pH (U) 6.5 [pH] 5.0 - 8.0 [facility] Urine sediment bacteria coun t by microscopy (number/high power field)Ordered By: ED PROVIDER on 10-28-2024 Bacteria LM.HPF (Urine sed) [#/Area] RARE /hpf None Seen [facility] Urine specific gravity measu rementOrdered By: ED PROVIDER on 10-28-2024 Specific gravity (U) [Rel density] 1.010 1.002-1.03 0 [facility] Urine urobilinogen measureme ntOrdered By: ED PROVIDER on 10-28-2024 Urobilinogen Ql (U) Normal mg/dl Normal [facility] White blood cell (WBC) count Ordered By: ED PROVIDER on 10-28-2024 WBC (Bld) [#/Vol] 10.9 10*3/uL 4.4-11.0 [facility] White blood cell countOrdere d By: ED PROVIDER on 10-28-2024 White blood cell count 0 SEEN /hpf 0-5 [facility] Low Dose CT Lung Screeningon 09-29-[address] Lung Screening [facility] Imaging Services [address] [place], [place] [address] Low Dose CT Lung Screening MR#: [id number] Acct: [id number] Name: NAVIN AUGUST #: [id number] : 1960 F 64 From: Jak Mcknight MD PCP: Dr. Jaswinder Muñiz MD Status: REG CLI Study: Low Dose CT Lung Screening Date of Exam: 09/29 Exam# [id number] Ordering Dr: Jaswinder Muñiz MD EXAM: CT [...] in 12 months is recommended. Reading Location: [facility] CC: Dr. Jaswinder Muñiz MD Cylinder Inspector And Tester: Signed Normal [facility] Absolute lymphocyte countOrd ered By: Jaswinder Muñiz on 09-04-2024 Lymphocytes Auto (Unsp spec) [#/Vol] 1.94 10*3/uL 0.83-4.51 [facility] Absolute neutrophil countOrd ered By: Jaswinder Muñiz on 09-04-2024 Neutrophils (Bld) [#/Vol] 4.3 10*3/uL 2.0-7.7 [facility] Anion gap in Serum or Plasma Ordered By: Jaswinder Muñiz on 09-04-2024 Anion gap [Moles/Vol] 12 mmol/L 5-15 [facility] Automated lymphocyte count a s percentage of total leukocytesOrdered By: Jaswinder Muñiz on 09-04-2024 Lymphocytes/100 WBC Auto (Unsp spec) 27.6 % - [facility] BUN/creatinine ratioOrdered By: Jaswinder Muñiz on 09-04-2024 Urea nitrogen/Creatinine [Mass ratio] 10.4 mg/mg 10- [facility] Basophil percentageOrdered B y: Jaswinder Muñiz on 09-04-2024 Basophils/100 WBC (Bld) 1.1 % High 0-1 [facility] Bilirubin, totalOrdered By: [facility] Muñiz on 09-04-2024 Bilirubin [Mass/Vol] mg/dL 0.00-1.30 [facility] CBC W/Diff, Automatedon 08-16 Absolute Lymph 1.94 X10 3/uL Normal 0.83-4.51 [facility] Comment on above: Order Comment: Order Date: 09/04/24Order Info: [id number] - CBCD Performed By: #### L 506.1000, L500.4050, L500.4100, L501.9520, L100.0100 #### [facility] [address] [place], [address] Absolute Neut 4.3 X10 3/uL Normal 2.0-7.7 [facility] Comment on above: Order Comment: Order Date: 09/04/24Order Info: [id number] - CBCD Performed By: #### L 506.1000, L500.4050, L500.4100, L501.9520, L100.0100 #### [facility] [address] [place], [address] Basophils/100 WBC (Bld) 1.1 % High 0-1 [facility] Comment on above: Order Comment: Order Date: 09/04/24Order Info: [id number] - CBCD Performed By: #### L 506.1000, L500.4050, L500.4100, L501.9520, L100.0100 #### [facility] [address] [place], [address] Eosinophils/100 WBC (Bld) 2.3 % Normal 0-5 [facility] Comment on above: Order Comment: Order Date: 09/04/24Order Info: [id number] - CBCD Performed By: #### L 506.1000, L500.4050, L500.4100, L501.9520, L100.0100 #### [facility] [address] [place], [address] Erythrocyte distribution width (RBC) [Ratio] 12.6 % Normal 11.6-14.6 [facility] Comment on above: Order Comment: Order Date: 09/04/24Order Info: [id number] - CBCD Performed By: #### L 506.1000, L500.4050, L500.4100, L501.9520, L100.0100 #### [facility] [address] [place], [address] Hematocrit (Bld) [Volume fraction] 38.4 % Normal 37-47 [facility] Comment on above: Order Comment: Order Date: 09/04/24Order Info: [id number] - CBCD Performed By: #### L 506.1000, L500.4050, L500.4100, L501.9520, L100.0100 #### [facility] [address] [place], [address] Hemoglobin (Bld) [Mass/Vol] 13.2 g/dL Normal 12.0-15.0 [facility] Comment on above: Order Comment: Order Date: 09/04/24Order Info: [id number] - CBCD Performed By: #### L 506.1000, L500.4050, L500.4100, L501.9520, L100.0100 #### [facility] [address] [place], [address] IG% 0.300 Normal 0.0-0.9 [facility] Comment on above: Order Comment: Order Date: 09/04/24Order Info: [id number] - CBCD Result Comment: IG% - Immature Granulocytes (promyelocytes, myelocytes and metamyelocytes) > 1% indicates that a LEFT SHIFT is Present. Performed By: #### L 506.1000, L500.4050, L500.4100, L501.9520, L100.0100 #### [facility] [address] [place], [address] Lymphocytes/100 WBC (Bld) 27.6 % Normal 19-41 [facility] Comment on above: Order Comment: Order Date: 09/04/24Order Info: [id number] - CBCD Performed By: #### L 506.1000, L500.4050, L500.4100, L501.9520, L100.0100 #### [facility] [address] [place], [address] MCH (RBC) [Entitic mass] 32.9 pg High 27.0-32.0 [facility] Comment on above: Order Comment: Order Date: 09/04/24Order Info: [id number] - CBCD Performed By: #### L 506.1000, L500.4050, L500.4100, L501.9520, L100.0100 #### [facility] [address] [place], [address] MCHC (RBC) [Mass/Vol] 34.4 g/dL Normal 32-36 [facility] Comment on above: Order Comment: Order Date: 09/04/24Order Info: [id number] - CBCD Performed By: #### L 506.1000, L500.4050, L500.4100, L501.9520, L100.0100 #### [facility] [address] [place], [address] MCV (RBC) [Entitic vol] 95.8 fL Normal 81-99 [facility] Comment on above: Order Comment: Order Date: 09/04/24Order Info: [id number] - CBCD Performed By: #### L 506.1000, L500.4050, L500.4100, L501.9520, L100.0100 #### [facility] [address] [place], [address] Monocytes/100 WBC (Bld) 7.3 % Normal 0-10 [facility] Comment on above: Order Comment: Order Date: 09/04/24Order Info: [id number] - CBCD Performed By: #### L 506.1000, L500.4050, L500.4100, L501.9520, L100.0100 #### [facility] [address] [place], [address] Neutrophils/100 WBC (Bld) 61.4 % Normal 47-70 [facility] Comment on above: Order Comment: Order Date: 09/04/24Order Info: [id number] - CBCD Performed By: #### L 506.1000, L500.4050, L500.4100, L501.9520, L100.0100 #### [facility] [address] [place], [address] Nucleated RBC (Bld) [#/Vol] 0 10*3/uL Normal 0-5 [facility] Comment on above: Order Comment: Order Date: 09/04/24Order Info: [id number] - CBCD Performed By: #### L 506.1000, L500.4050, L500.4100, L501.9520, L100.0100 #### [facility] [address] [place], [address] Platelet mean volume (Bld) [Entitic vol] 9.2 fL Normal 6.2-12.0 [facility] Comment on above: Order Comment: Order Date: 09/04/24Order Info: [id number] - CBCD Performed By: #### L 506.1000, L500.4050, L500.4100, L501.9520, L100.0100 #### [facility] [address] [place], [address] Platelets (Bld) [#/Vol] 510 10*3/uL High 150-450 [facility] Comment on above: Order Comment: Order Date: 09/04/24Order Info: [id number] - CBCD Performed By: #### L 506.1000, L500.4050, L500.4100, L501.9520, L100.0100 #### [facility] [address] [place], [address] RBC (Bld) [#/Vol] 4.01 10*6/uL Low 4.2-5.4 [facility] Comment on above: Order Comment: Order Date: 09/04/24Order Info: [id number] - CBCD Performed By: #### L 506.1000, L500.4050, L500.4100, L501.9520, L100.0100 #### [facility] [address] [place], [address] RDW SD 44.5 fl High 35.1-43.9 [facility] Comment on above: Order Comment: Order Date: 09/04/24Order Info: [id number] - CBCD Performed By: #### L 506.1000, L500.4050, L500.4100, L501.9520, L100.0100 #### [facility] [address] [place], [address] WBC (Bld) [#/Vol] 7.0 10*3/uL Normal 4.4-11.0 [facility] Comment on above: Order Comment: Order Date: 09/04/24Order Info: [id number] - CBCD Performed By: #### L 506.1000, L500.4050, L500.4100, L501.9520, L100.0100 #### [facility] [address] [place], [address] Calculated very low density lipoprotein (VLDL) cholesterol measurementOrdered By: Jaswinder Muñiz on 09-04-2024 Calculated very low density lipoprotein (VLDL) cholesterol measurement 26 mg/dL 5-40 [facility] Carbon dioxide, total [Moles /volume] in Central venous bloodOrdered By: Jaswinder Muñiz on 09-04-2024 CO2 [Moles/Vol] 24.0 mmol/L 21.0-32.0 [facility] Chloride assayOrdered By: Stacie Muñiz on 09-04-2024 Chloride [Moles/Vol] 100 mmol/L 98-108 [facility] Comprehensive Metabolic Prof ilon 09-04-2024 Albumin [Mass/Vol] 4.5 g/dL Normal 3.4-4.8 [facility] Comment on above: Order Comment: Order Date: 09/04/24Order Info: [id number] - CMPOrder Info: [id number] - LIPIDOrder Info: [id number] - TSH Performed By: #### L 506.1000, L500.4050, L500.4100, L501.9520, L100.0100 #### [facility] [address] [place], [place], [address] Albumin/Globulin [Mass ratio] 1.7 {ratio} Normal 0.9-2.4 [facility] Comment on above: Order Comment: Order Date: 09/04/24Order Info: [id number] - CMPOrder Info: [id number] - LIPIDOrder Info: [id number] - TSH Performed By: #### L 506.1000, L500.4050, L500.4100, L501.9520, L100.0100 #### [facility] [address] [place], [place], [address] ALK PHOS 136 U/L High 35-104 [facility] Comment on above: Order Comment: Order Date: 09/04/24Order Info: [id number] - CMPOrder Info: [id number] - LIPIDOrder Info: [id number] - TSH Performed By: #### L 506.1000, L500.4050, L500.4100, L501.9520, L100.0100 #### [facility] [address] [place], [address] ALT [Catalytic activity/Vol] 17 U/L Normal <=34 [facility] Comment on above: Order Comment: Order Date: 09/04/24Order Info: [id number] - CMPOrder Info: [id number] - LIPIDOrder Info: [id number] - TSH Performed By: #### L 506.1000, L500.4050, L500.4100, L501.9520, L100.0100 #### [facility] [address] [place], [address] AST [Catalytic activity/Vol] 23 U/L Normal <=31 [facility] Comment on above: Order Comment: Order Date: 09/04/24Order Info: [id number] - CMPOrder Info: [id number] - LIPIDOrder Info: [id number] - TSH Performed By: #### L 506.1000, L500.4050, L500.4100, L501.9520, L100.0100 #### [facility] [address] [place], [address] BUN/CRE 10.4 RATIO Normal 10-20 [facility] Comment on above: Order Comment: Order Date: 09/04/24Order Info: [id number] - CMPOrder Info: [id number] - LIPIDOrder Info: [id number] - TSH Performed By: #### L 506.1000, L500.4050, L500.4100, L501.9520, L100.0100 #### [facility] [address] [place], [address] Calcium [Mass/Vol] 9.5 mg/dL Normal 7.6-11.0 [facility] Comment on above: Order Comment: Order Date: 09/04/24Order Info: [id number] - CMPOrder Info: [id number] - LIPIDOrder Info: [id number] - TSH Performed By: #### L 506.1000, L500.4050, L500.4100, L501.9520, L100.0100 #### [facility] [address] [place], [address] Chloride [Moles/Vol] 100 mmol/L Normal 98-108 [facility] Comment on above: Order Comment: Order Date: 09/04/24Order Info: [id number] - CMPOrder Info: [id number] - LIPIDOrder Info: [id number] - TSH Performed By: #### L 506.1000, L500.4050, L500.4100, L501.9520, L100.0100 #### [facility] [address] [place], [address] CO2 [Moles/Vol] 24.0 mmol/L Normal 21.0-32.0 [facility] Comment on above: Order Comment: Order Date: 09/04/24Order Info: [id number] - CMPOrder Info: [id number] - LIPIDOrder Info: [id number] - TSH Performed By: #### L 506.1000, L500.4050, L500.4100, L501.9520, L100.0100 #### [facility] [address] [place], [address] Creatinine [Mass/Vol] 0.97 mg/dL Normal 0.70-1.20 [facility] Comment on above: Order Comment: Order Date: 09/04/24Order Info: [id number] - CMPOrder Info: [id number] - LIPIDOrder Info: [id number] - TSH Performed By: #### L 506.1000, L500.4050, L500.4100, L501.9520, L100.0100 #### [facility] [address] [place], [address] GAP 12 Normal 5-15 [facility] Comment on above: Order Comment: Order Date: 09/04/24Order Info: [id number] - CMPOrder Info: [id number] - LIPIDOrder Info: [id number] - TSH Performed By: #### L 506.1000, L500.4050, L500.4100, L501.9520, L100.0100 #### [facility] [address] [place], [address] GFR/1.73 sq M.predicted among non-blacks MDRD (S/P/Bld) [Vol rate/Area] 65 mL/min/{1.73_m2} Normal >60 [facility] Comment on above: Order Comment: Order Date: 09/04/24Order Info: 07-1 - CMPOrder Info: [id number] - LIPIDOrder Info: [id number] - TSH Result Comment: mL/m in/1.73m2 CKD-EPI Creatinine Equation (2020) Performed By: #### L 506.1000, L500.4050, L500.4100, L501.9520, L100.0100 #### [facility] [address] [place], [address] Globulin (S) [Mass/Vol] 2.7 g/dL Normal 2.2-4.2 [facility] Comment on above: Order Comment: Order Date: 09/04/24Order Info: [id number] - CMPOrder Info: [id number] - LIPIDOrder Info: [id number] - TSH Performed By: #### L 506.1000, L500.4050, L500.4100, L501.9520, L100.0100 #### [facility] [address] [place], [address] Glucose [Mass/Vol] 114 mg/dL High 70-99 [facility] Comment on above: Order Comment: Order Date: 09/04/24Order Info: 07-1 - CMPOrder Info: [id number] - LIPIDOrder Info: [id number] - TSH Performed By: #### L 506.1000, L500.4050, L500.4100, L501.9520, L100.0100 #### [facility] [address] [place], [address] Potassium [Moles/Vol] 3.9 mmol/L Normal 3.3-5.1 [facility] Comment on above: Order Comment: Order Date: 09/04/24Order Info: [id number] - CMPOrder Info: [id number] - LIPIDOrder Info: [id number] - TSH Performed By: #### L 506.1000, L500.4050, L500.4100, L501.9520, L100.0100 #### [facility] [address] [place], [address] Sodium [Moles/Vol] 136 mmol/L Normal 133-145 [facility] Comment on above: Order Comment: Order Date: 09/04/24Order Info: [id number] - CMPOrder Info: [id number] - LIPIDOrder Info: 3 - TSH Performed By: #### L 506.1000, L500.4050, L500.4100, L501.9520, L100.0100 #### [facility] [address] [place], [address] T BILI < 0.15 Normal 0.00-1.30 [facility] Comment on above: Order Comment: Order Date: 09/04/24Order Info: [id number] - CMPOrder Info: [id number] - LIPIDOrder Info: 3 - TSH Performed By: #### L 506.1000, L500.4050, L500.4100, L501.9520, L100.0100 #### [facility] [address] [place], [address] T PROT 7.2 g/dL Normal 5.9-8.4 [facility] Comment on above: Order Comment: Order Date: 09/04/24Order Info: [id number] - CMPOrder Info: [id number] - LIPIDOrder Info: [id number] - TSH Performed By: #### L 506.1000, L500.4050, L500.4100, L501.9520, L100.0100 #### [facility] [address] [place], [address] Urea nitrogen [Mass/Vol] 10 mg/dL Normal 4-19 [facility] Comment on above: Order Comment: Order Date: 09/04/24Order Info: [id number] - CMPOrder Info: [id number] - LIPIDOrder Info: [id number] - TSH Performed By: #### L 506.1000, L500.4050, L500.4100, L501.9520, L100.0100 #### [facility] [address] [place], [address] Eosinophil percentageOrdered By: Jaswinder Muñiz on 09-04-2024 Eosinophils/100 WBC (Bld) 2.3 % 0-5 [facility] Erythrocyte distribution wid th ratioOrdered By: Jaswinder Muñiz on 09-04-2024 Erythrocyte distribution width (RBC) [Ratio] 12.6 % 11.6-14.6 [facility] Erythrocyte distribution wid th standard deviationOrdered By: Jaswinder Muñiz on 09-04-2024 Erythrocyte distribution width (RBC) [Ratio] 44.5 fl High 35.1-43.9 [facility] Glomerular filtration rate ( GFR) estimation/1.73 sq m using serum, plasma, or whole bOrdered By: Jaswinder Muñiz on 09-04-2024 GFR/1.73 sq M.predicted among non-blacks MDRD (S/P/Bld) [Vol rate/Area] 65 mL/min/{1.73_m2} >60 [facility] Comment on above: mL/min/1.73m2 CKD-EP I Creatinine Equation (2020) Hematocrit Auto (Bld) [Volum e fraction]Ordered By: Jaswinder Muñiz on 09-04-2024 Hematocrit (Bld) [Volume fraction] 38.4 % 37-47 [facility] Hemoglobin measurementOrdere d By: Jaswinder Muñiz on 09-04-2024 Hemoglobin (Bld) [Mass/Vol] 13.2 g/dL 12.0-15.0 [facility] Immature granulocytes/100 WB C Auto (Bld)Ordered By: Jaswinder Muñiz on 09-04-2024 Immature granulocytes/100 WBC (Bld) 0.300 % 0.0-0.9 [facility] Comment on above: IG% - Immature Granu locytes (promyelocytes, myelocytes and metamyelocytes) > 1% indicates that a LEFT SHIFT is Present. LDL calc ser/plasOrdered By: Jaswinder Muñiz on 09-04-2024 Cholesterol in LDL [Mass/Vol] 168 mg/dL [facility] Comment on above: Pfwrhplwvp=835-044 m g/dL & Higher Phfl=483 mg/dL or greater Laboratory - Chemistry and C hemistry - challengeOrdered By: Jaswinder Muñiz on 09-04-2024 AST [Catalytic activity/Vol] 23 U/L <32 [facility] Lipid Profileon 09-04-2024 CHOL:HDL 5.15 Normal [facility] Comment on above: Order Comment: Order Date: 09/04/24Order Info: [id number] - CMPOrder Info: [id number] - LIPIDOrder Info: [id number] - TSH Performed By: #### L 506.1000, L500.4050, L500.4100, L501.9520, L100.0100 #### [facility] [address] [place], [address] Cholesterol [Mass/Vol] 241 mg/dL High <=200 [facility] Comment on above: Order Comment: Order Date: 09/04/24Order Info: [id number] - CMPOrder Info: [id number] - LIPIDOrder Info: [id number] - TSH Result Comment: Chol esterol level, Desirable <200 mg/dL Borderline high cholesterol 200-239 mg/dL High cholesterol >=240 mg/dL Recommendations of the NCEP Adult Treatment Panel for the following risk-cutoff thresholds for the [place] population. Performed By: #### L 506.1000, L500.4050, L500.4100, L501.9520, L100.0100 #### [facility] [address] [place], [address] Cholesterol in HDL [Mass/Vol] 47 mg/dL Normal [facility] Comment on above: Order Comment: Order Date: 09/04/24Order Info: [id number] - CMPOrder Info: [id number] - LIPIDOrder Info: [id number] - TSH Result Comment: Cassandra onal Cholesterol Education Program (NCEP) guidelines: <40 mg/dL: Low HDL-cholesterol (major risk factor for CHD) >= 60 mg/dL: High HDL-cholesterol (negative risk factor for CHD) HDL-cholesterol is affected by a number of factors, e.g. smoking, exercise, hormones, sex and age. Performed By: #### L 506.1000, L500.4050, L500.4100, L501.9520, L100.0100 #### [facility] [address] [place], [address] Cholesterol in LDL [Mass/Vol] 168 mg/dL Normal [facility] Comment on above: Order Comment: Order Date: 09/04/24Order Info: 07-1 - CMPOrder Info: [id number] - LIPIDOrder Info: 3 - TSH Result Comment: Bord giqmue=908-165 mg/dL Higher Bhma=894 mg/dL or greater Performed By: #### L 506.1000, L500.4050, L500.4100, L501.9520, L100.0100 #### [facility] [address] [place], [address] Cholesterol in VLDL [Mass/Vol] 26 mg/dL Normal 5-40 [facility] Comment on above: Order Comment: Order Date: 09/04/24Order Info: 07 - CMPOrder Info: - LIPIDOrder Info: 3 - TSH Performed By: #### L 506.1000, L500.4050, L500.4100, L501.9520, L100.0100 #### [facility] [address] [place], [address] Triglyceride [Mass/Vol] 131 mg/dL Normal [facility] Comment on above: Order Comment: Order Date: 09/04/24Order Info: [id number] - CMPOrder Info: [id number] - LIPIDOrder Info: 3 - TSH Result Comment: The drugs N-Acetylcysteine and Metamizole may falsely depress this assay. Normal range: <150 mg/dL Borderline High: 150-199 mg/dL High: 200-499 mg/dL Very High: >500 mg/dL Performed By: #### L 506.1000, L500.4050, L500.4100, L501.9520, L100.0100 #### [facility] [address] [place], [address] MCV (mean corpuscular volume ) determinationOrdered By: Jaswinder Muñiz on 09-04-2024 MCV (RBC) [Entitic vol] 95.8 fL 81-99 [facility] Mean corpuscular hemoglobin (MCH) determinationOrdered By: Jaswinder Muñiz on 09-04-2024 MCH (RBC) [Entitic mass] 32.9 pg High 27.0-32.0 [facility] Mean corpuscular hemoglobin concentration (MCHC) determinationOrdered By: Jaswinder Muñiz on 09-04-2024 MCHC (RBC) [Mass/Vol] 34.4 g/dL 32-36 [facility] Mean platelet volume determi nationOrdered By: Jaswinder Muñiz on 09-04-2024 Platelet mean volume (Bld) [Entitic vol] 9.2 fL 6.2-12.0 [facility] Monocyte percentageOrdered B y: Jaswinder Muñiz on 09-04-2024 Monocytes/100 WBC (Bld) 7.3 % 0-10 [facility] Neutrophil percentageOrdered By: Jaswinder Muñiz on 09-04-2024 Neutrophils/100 WBC (Bld) 61.4 % 47-70 [facility] Nucleated red blood cell per centageOrdered By: Jaswinder Muñiz on 09-04-2024 Nucleated RBC/100 WBC (Bld) [Ratio] 0 % 0-5 [facility] Platelet countOrdered By: Satcie Muñiz on 09-04-2024 Platelets (Bld) [#/Vol] 510 10*3/uL High 150-450 [facility] Potassium measurement (mass/ volume)Ordered By: Jaswinder Muñiz on 09-04-2024 Potassium (Unsp spec) [Mass/Vol] 3.9 mmol/L 3.3-5.1 [facility] RBC Auto (Bld) [#/Vol]Ordere d By: Jaswinder Muñiz on 09-04-2024 RBC (Bld) [#/Vol] 4.01 10*6/uL Low 4.2-5.4 [facility] Screening total cholesterol/ high density lipoprotein (HDL) cholesterol ratioOrdered By: Jaswinder Muñiz on 09-04-2024 Cholesterol.total/Rhonda sterol in HDL [Mass ratio] 5.15 {ratio} [facility] Serum creatinine measurement (mass/volume)Ordered By: Jaswinder Muñiz on 09-04-2024 Creatinine [Mass/Vol] 0.97 mg/dL 0.70-1.20 [facility] Serum globulin measurementOr dered By: Jaswinder Muñiz on 09-04-2024 Globulin (S) [Mass/Vol] 2.7 g/dL 2.2-4.2 [facility] Serum glucose measurement (m ass/volume)Ordered By: Jaswinder Muñiz on 09-04-2024 Glucose [Mass/Vol] 114 mg/dL High 70-99 [facility] Serum or plasma alanine huggins otransferase (ALT) measurementOrdered By: Jaswinder Muñiz on 09-04-2024 ALT [Catalytic activity/Vol] 17 U/L <35 [facility] Serum or plasma albumin chace urement (mass/volume)Ordered By: Jaswinder Muñiz on 09-04-2024 Albumin [Mass/Vol] 4.5 g/dL 3.4-4.8 [facility] Serum or plasma albumin/glob ulin mass ratioOrdered By: Jaswinder Muñiz on 09-04-2024 Albumin/Globulin [Mass ratio] 1.7 {ratio} 0.9-2.4 [facility] Serum or plasma alkaline venice sphatase measurementOrdered By: Jaswinder Muñiz on 09-04-2024 ALP [Catalytic activity/Vol] 136 U/L High 35-104 [facility] Serum or plasma calcium chace urement (mass/volume)Ordered By: Jaswinder Muñiz on 09-04-2024 Calcium [Mass/Vol] 9.5 mg/dL 7.6-11.0 [facility] Serum or plasma cholesterol in HDL measurement (mass/volume)Ordered By: Jaswinder Muñiz on 09-04-2024 Cholesterol in HDL [Mass/Vol] 47 mg/dL >40 [facility] Comment on above: National Cholesterol Education Program (NCEP) guidelines:<40 mg/dL: Low HDL-cholesterol (major risk factor for CHD)>= 60 mg/dL: High HDL-cholesterol (negative risk factor for CHD)HDL-cholesterol is affected by a number of factors, e.g. smoking, exercise, hormones, sex and age. Serum or plasma cholesterol measurement (mass/volume)Ordered By: Jaswinder Muñiz on 09-04-2024 Cholesterol [Mass/Vol] 241 mg/dL High <201 [facility] Comment on above: Cholesterol level, D esirable <200 mg/dLBorderline high cholesterol 200-239 mg/dLHigh cholesterol >=240 mg/dLRecommendations of the NCEP Adult Treatment Panel for the following risk-cutoff thresholds for the [place] population. Serum or plasma urea nitroge n measurement (mass/volume)Ordered By: Jaswinder Muñiz on 09-04-2024 Urea nitrogen [Mass/Vol] 10 mg/dL 4-19 [facility] Sodium levelOrdered By: Jah Muñiz on 09-04-2024 Sodium [Moles/Vol] 136 mmol/L 133-145 [facility] TSH DL <= 0.005 mIU/L QnOrde red By: Jaswinder Muñiz on 09-04-2024 TSH Qn 2.070 uIU/mL 0.300-4.20 0 [facility] Thyroid Stim Hormone (TSH)on 09-04-2024 TSH 2.070 uIU/mL Normal 0.300-4.20 0 [facility] Comment on above: Order Comment: Order Date: 09/04/24Order Info: [id number] - CMPOrder Info: [id number] - LIPIDOrder Info: [id number] - TSH Performed By: #### L 506.1000, L500.4050, L500.4100, L501.9520, L100.0100 #### [facility] [address] [place], [address] Total proteinOrdered By: Aury Muñiz on 09-04-2024 Protein [Mass/Vol] 7.2 g/dL 5.9-8.4 [facility] Triglycerides measurementOrd ered By: Jaswinder Muñiz on 09-04-2024 Triglyceride [Mass/Vol] 131 mg/dL <199 [facility] Comment on above: The drugs N-Acetylcy steine and Metamizole may falsely depress this assay. Normal range: <150 mg/dLBorderline High: 150-199 mg/dLHigh: 200-499 mg/dLVery High: >500 mg/dL Vitamin D,25 Hydroxyon 09-04 Vitamin D 25-OH 22.5 ng/mL Low 30-100 [facility] Comment on above: Order Comment: Order Date: 09/04/24Order Info: [id number] - CMPOrder Info: [id number] - LIPIDOrder Info: [id number] - TSH Result Comment: Shelbi min D Status Deficiency: <20 ng/mL (50nmol/L) Insufficiency: 20-30 ng/mL (50-75 nmol/L) Sufficiency: 30-100 ng/mL (75-250 nmol/L) Toxicity: >100 ng/mL (>250 nmol/L) Performed By: #### L 506.1000, L500.4050, L500.4100, L501.9520, L100.0100 #### [facility] [address] [place], [address] White blood cell (WBC) count Ordered By: Jaswinder Muñiz on 09-04-2024 WBC (Bld) [#/Vol] 7.0 10*3/uL 4.4-11.0 [facility] Absolute lymphocyte countOrd ered By: Yobany Snell on 07-18-2024 Lymphocytes Auto (Unsp spec) [#/Vol] 2.07 10*3/uL 0.83-4.51 [facility] Absolute neutrophil countOrd ered By: Yobany Snell on 07-18-2024 Neutrophils (Bld) [#/Vol] 5.4 10*3/uL 2.0-7.7 [facility] Anion gap in Serum or Plasma Ordered By: Yobany Snell on 07-18-2024 Anion gap [Moles/Vol] 14 mmol/L 5-15 [facility] Automated lymphocyte count a s percentage of total leukocytesOrdered By: Yobany Channing on 07-18-2024 Lymphocytes/100 WBC Auto (Unsp spec) 24.8 % 19-41 [facility] BUN/creatinine ratioOrdered By: Yobany Snell on 07-18-2024 Urea nitrogen/Creatinine [Mass ratio] 10.1 mg/mg 10-20 [facility] Basophil percentageOrdered B y: Yobany Silvaok on 07-18-2024 Basophils/100 WBC (Bld) 1.4 % High 0-1 [facility] Bilirubin, totalOrdered By: Yobany Snell on 07-18-2024 Bilirubin [Mass/Vol] 0.33 mg/dL 0.00-1.30 [facility] CBC W/Diff, Automatedon Absolute Lymph 2.07 X10 3/uL Normal 0.83-4.51 [facility] Comment on above: Performed By: #### L 500.4050, L100.0100 #### [facility] [address] [place], [address] Absolute Neut 5.4 X10 3/uL Normal 2.0-7.7 [facility] Comment on above: Performed By: #### L 500.4050, L100.0100 #### [facility] [address] [place], [address] Basophils/100 WBC (Bld) 1.4 % High 0-1 [facility] Comment on above: Performed By: #### L 500.4050, L100.0100 #### [facility] [address] [place], [address] Eosinophils/100 WBC (Bld) 1.6 % Normal 0-5 [facility] Comment on above: Performed By: #### L 500.4050, L100.0100 #### [facility] [address] [place], [address] Erythrocyte distribution width (RBC) [Ratio] 12.6 % Normal 11.6-14.6 [facility] Comment on above: Performed By: #### L 500.4050, L100.0100 #### [facility] [address] [place], [address] Hematocrit (Bld) [Volume fraction] 41.6 % Normal 37-47 [facility] Comment on above: Performed By: #### L 500.4050, L100.0100 #### [facility] [address] [place], [address] Hemoglobin (Bld) [Mass/Vol] 14.3 g/dL Normal 12.0-15.0 [facility] Comment on above: Performed By: #### L 500.4050, L100.0100 #### [facility] [address] [place], [address] IG% 0.400 Normal 0.0-0.9 [facility] Comment on above: Result Comment: IG% - Immature Granulocytes (promyelocytes, myelocytes and metamyelocytes) > 1% indicates that a LEFT SHIFT is Present. Performed By: #### L 500.4050, L100.0100 #### [facility] [address] [place], [address] Lymphocytes/100 WBC (Bld) 24.8 % Normal 19-41 [facility] Comment on above: Performed By: #### L 500.4050, L100.0100 #### [facility] [address] [place], [address] MCH (RBC) [Entitic mass] 33.0 pg High 27.0-32.0 [facility] Comment on above: Performed By: #### L 500.4050, L100.0100 #### [facility] [address] [place], [address] MCHC (RBC) [Mass/Vol] 34.4 g/dL Normal 32-36 [facility] Comment on above: Performed By: #### L 500.4050, L100.0100 #### [facility] [address] [place], [address] MCV (RBC) [Entitic vol] 96.1 fL Normal 81-99 [facility] Comment on above: Performed By: #### L 500.4050, L100.0100 #### [facility] [address] [place], [address] Monocytes/100 WBC (Bld) 7.2 % Normal 0-10 [facility] Comment on above: Performed By: #### L 500.4050, L100.0100 #### [facility] [address] [place], [address] Neutrophils/100 WBC (Bld) 64.6 % Normal 47-70 [facility] Comment on above: Performed By: #### L 500.4050, L100.0100 #### [facility] [address] [place], [address] Nucleated RBC (Bld) [#/Vol] 0 10*3/uL Normal 0-5 [facility] Comment on above: Performed By: #### L 500.4050, L100.0100 #### [facility] [address] [place], [address] Platelet mean volume (Bld) [Entitic vol] 9.0 fL Normal 6.2-12.0 [facility] Comment on above: Performed By: #### L 500.4050, L100.0100 #### [facility] [address] [place], [address] Platelets (Bld) [#/Vol] 514 10*3/uL High 150-450 [facility] Comment on above: Performed By: #### L 500.4050, L100.0100 #### [facility] [address] [place], [address] RBC (Bld) [#/Vol] 4.33 10*6/uL Normal 4.2-5.4 [facility] Comment on above: Performed By: #### L 500.4050, L100.0100 #### [facility] [address] [place], [address] RDW SD 45.2 fl High 35.1-43.9 [facility] Comment on above: Performed By: #### L 500.4050, L100.0100 #### [facility] [address] [place], [address] WBC (Bld) [#/Vol] 8.3 10*3/uL Normal 4.4-11.0 [facility] Comment on above: Performed By: #### L 500.4050, L100.0100 #### [facility] [address] [place], [address] Calculated very low density lipoprotein (VLDL) cholesterol measurementOrdered By: Yobany Snell on 07-18-2024 Calculated very low density lipoprotein (VLDL) cholesterol measurement 27 mg/dL 5-40 [facility] VLDL Cholesterol 27 mg/dL -40 [facility] Carbon dioxide, total [Moles /volume] in Central venous bloodOrdered By: Yobany Snell on 07-18-2024 CO2 [Moles/Vol] 25.0 mmol/L 21.0-32.0 [facility] Chloride assayOrdered By: Gamaliel Snell on 07-18-2024 Chloride [Moles/Vol] 95 mmol/L Low 98-108 [facility] Comprehensive Metabolic Prof ilon 07-18-2024 Albumin [Mass/Vol] 4.9 g/dL High 3.4-4.8 [facility] Comment on above: Performed By: #### L 500.4050, L100.0100 #### [facility] [address] [place], [address] Albumin/Globulin [Mass ratio] 1.6 {ratio} Normal 0.9-2.4 [facility] Comment on above: Performed By: #### L 500.4050, L100.0100 #### [facility] [address] [place], [address] ALK PHOS 136 U/L High 35-104 [facility] Comment on above: Performed By: #### L 500.4050, L100.0100 #### [facility] Laboratory [address] [place], [address] ALT [Catalytic activity/Vol] 13 U/L Normal <=34 [facility] Comment on above: Performed By: #### L 500.4050, L100.0100 #### [facility] Laboratory [address] [place], [address] AST [Catalytic activity/Vol] 19 U/L Normal <=31 [facility] Comment on above: Performed By: #### L 500.4050, L100.0100 #### [facility] Laboratory [address] [place], [address] Bilirubin [Mass/Vol] 0.33 mg/dL Normal 0.00-1.30 [facility] Comment on above: Performed By: #### L 500.4050, L100.0100 #### [facility] Laboratory [address] [place], [address] BUN/CRE 10.1 RATIO Normal 10-20 [facility] Comment on above: Performed By: #### L 500.4050, L100.0100 #### [facility] Laboratory [address] [place], [address] Calcium [Mass/Vol] 9.4 mg/dL Normal 7.6-11.0 [facility] Comment on above: Performed By: #### L 500.4050, L100.0100 #### [facility] Laboratory [address] [place], [address] Chloride [Moles/Vol] 95 mmol/L Low 98-108 [facility] Comment on above: Performed By: #### L 500.4050, L100.0100 #### [facility] Laboratory [address] [place], [address] CO2 [Moles/Vol] 25.0 mmol/L Normal 21.0-32.0 [facility] Comment on above: Performed By: #### L 500.4050, L100.0100 #### [facility] Laboratory [address] [place], [address] Creatinine [Mass/Vol] 1.09 mg/dL Normal 0.70-1.20 [facility] Comment on above: Performed By: #### L 500.4050, L100.0100 #### [facility] Laboratory [address] [place], [address] GAP 14 Normal 5-15 [facility] Comment on above: Performed By: #### L 500.4050, L100.0100 #### [facility] Laboratory [address] [place], [address] GFR/1.73 sq M.predicted among non-blacks MDRD (S/P/Bld) [Vol rate/Area] 56 mL/min/{1.73_m2} Low >60 [facility] Comment on above: Result Comment: mL/m in/1.73m2 CKD-EPI Creatinine Equation (2020) Performed By: #### L 500.4050, L100.0100 #### [facility] Laboratory [address] [place], [address] Globulin (S) [Mass/Vol] 3.1 g/dL Normal 2.2-4.2 [facility] Comment on above: Performed By: #### L 500.4050, L100.0100 #### [facility] Laboratory [address] [place], [address] Glucose [Mass/Vol] 113 mg/dL High 70-99 [facility] Comment on above: Performed By: #### L 500.4050, L100.0100 #### [facility] Laboratory [address] [place], [address] Potassium [Moles/Vol] 3.7 mmol/L Normal 3.3-5.1 [facility] Comment on above: Performed By: #### L 500.4050, L100.0100 #### [facility] Laboratory [address] [place], [address] Sodium [Moles/Vol] 134 mmol/L Normal 133-145 [facility] Comment on above: Performed By: #### L 500.4050, L100.0100 #### [facility] Laboratory [address] [place], [address] T PROT 7.9 g/dL Normal 5.9-8.4 [facility] Comment on above: Performed By: #### L 500.4050, L100.0100 #### [facility] Laboratory [address] [place], [address] Urea nitrogen [Mass/Vol] 11 mg/dL Normal 4-19 [facility] Comment on above: Performed By: #### L 500.4050, L100.0100 #### [facility] Laboratory [address] [place], [address] Eosinophil percentageOrdered By: Yobany Snell on 07-18-2024 Eosinophils/100 WBC (Bld) 1.6 % 0-5 [facility] Erythrocyte distribution wid th ratioOrdered By: Yobany Snell on 07-18-2024 Erythrocyte distribution width (RBC) [Ratio] 12.6 % 11.6-14.6 [facility] Erythrocyte distribution wid th standard deviationOrdered By: Yobany Snell on 07-18-2024 Erythrocyte distribution width (RBC) [Entitic vol] 45.2 fL High 35.1-43.9 [facility] Erythrocyte distribution width (RBC) [Ratio] 45.2 fl High 35.1-43.9 [facility] GFR/1.73 sq M.predicted vic g non-blacks MDRD (S/P/Bld) [Vol rate/Area]Ordered By: oYbany Snell on 07-18-2024 Estimated GFR (MDRD) Non-Af Amer 56 Low >60 [facility] Comment on above: mL/min/1.73m2 CKD-EP I Creatinine Equation (2020) Glomerular filtration rate ( GFR) estimation/1.73 sq m using serum, plasma, or whole bOrdered By: Yobany Snell on 07-18-2024 GFR/1.73 sq M.predicted among non-blacks MDRD (S/P/Bld) [Vol rate/Area] 56 mL/min/{1.73_m2} Low >60 [facility] Comment on above: mL/min/1.73m2 CKD-EP I Creatinine Equation (2020) Hematocrit Auto (Bld) [Volum e fraction]Ordered By: Yobany Snell on 07-18-2024 Hematocrit (Bld) [Volume fraction] 41.6 % 37-47 [facility] Hemoglobin measurementOrdere d By: oYbany Snell on 07-18-2024 Hemoglobin (Bld) [Mass/Vol] 14.3 g/dL 12.0-15.0 [facility] Immature granulocytes/100 WB C Auto (Bld)Ordered By: Yobany Snell on 07-18-2024 Immature granulocytes/100 WBC (Bld) 0.400 % 0.0-0.9 [facility] Comment on above: IG% - Immature Granu locytes (promyelocytes, myelocytes and metamyelocytes) > 1% indicates that a LEFT SHIFT is Present. L506.1001on 07-18-2024 Vitamin D 25-OH 29.5 ng/mL Low 30-100 [facility] Comment on above: Result Comment: Shelbi min D Status Deficiency: <20 ng/mL (50nmol/L) Insufficiency: 20-30 ng/mL (50-75 nmol/L) Sufficiency: 30-100 ng/mL (75-250 nmol/L) Toxicity: >100 ng/mL (>250 nmol/L) Performed By: #### L 506.1000, L500.4050, L500.4100, L501.9520, L100.0100 #### [facility] Laboratory [address] [place], [address] LDL calc ser/plasOrdered By: Yobany Snell on 07-18-2024 Cholesterol in LDL [Mass/Vol] 256 mg/dL [facility] Comment on above: Xqzgzicxlb=587-396 m g/dL & Higher Cyoq=401 mg/dL or greater LDL Cholesterol, Calculated 256 mg/dL [facility] Comment on above: Gccflbiflf=125-958 m g/dL & Higher Hcow=615 mg/dL or greater Laboratory - Chemistry and C hemistry - challengeOrdered By: Yobany Snell on 07-18-2024 AST [Catalytic activity/Vol] 19 U/L <32 [facility] Lipid Profileon 07-18-2024 CHOL:HDL 6.40 Normal [facility] Comment on above: Performed By: #### L 506.1000, L500.4050, L500.4100, L501.9520, L100.0100 #### [facility] Laboratory [address] [place], [address] Cholesterol [Mass/Vol] 336 mg/dL High <=200 [facility] Comment on above: Result Comment: Chol esterol level, Desirable <200 mg/dL Borderline high cholesterol 200-239 mg/dL High cholesterol >=240 mg/dL Recommendations of the NCEP Adult Treatment Panel for the following risk-cutoff thresholds for the [place] population. Performed By: #### L 506.1000, L500.4050, L500.4100, L501.9520, L100.0100 #### [facility] Laboratory [address] [place], [address] Cholesterol in HDL [Mass/Vol] 53 mg/dL Normal [facility] Comment on above: Result Comment: Cassandra onal Cholesterol Education Program (NCEP) guidelines: <40 mg/dL: Low HDL-cholesterol (major risk factor for CHD) >= 60 mg/dL: High HDL-cholesterol (negative risk factor for CHD) HDL-cholesterol is affected by a number of factors, e.g. smoking, exercise, hormones, sex and age. Performed By: #### L 506.1000, L500.4050, L500.4100, L501.9520, L100.0100 #### [facility] Laboratory [address] [place], [address] Cholesterol in LDL [Mass/Vol] 256 mg/dL Normal [facility] Comment on above: Result Comment: Bord ottqor=680-917 mg/dL Higher Ypwf=590 mg/dL or greater Performed By: #### L 506.1000, L500.4050, L500.4100, L501.9520, L100.0100 #### [facility] Laboratory [address] [place], [address] Cholesterol in VLDL [Mass/Vol] 27 mg/dL Normal 5-40 [facility] Comment on above: Performed By: #### L 506.1000, L500.4050, L500.4100, L501.9520, L100.0100 #### [facility] Laboratory [address] [place], [address] Triglyceride [Mass/Vol] 136 mg/dL Normal [facility] Comment on above: Result Comment: The drugs N-Acetylcysteine and Metamizole may falsely depress this assay. Normal range: <150 mg/dL Borderline High: 150-199 mg/dL High: 200-499 mg/dL Very High: >500 mg/dL Performed By: #### L 506.1000, L500.4050, L500.4100, L501.9520, L100.0100 #### [facility] Laboratory [address] [place], [address] Lymphocytes Auto (Unsp spec) [#/Vol]Ordered By: Yobany Snell on 07-18-2024 Lymphocytes (Bld) [#/Vol] 2.07 10*3/uL 0.83-4.51 [facility] Lymphocytes/100 WBC Auto (Un sp spec)Ordered By: Yobany Snell on 07-18-2024 Lymphocytes/100 WBC (Bld) 24.8 % 19-41 [facility] MCV (mean corpuscular volume ) determinationOrdered By: Yobany Snell on 07-18-2024 MCV (RBC) [Entitic vol] 96.1 fL 81-99 [facility] Mean corpuscular hemoglobin (MCH) determinationOrdered By: Yobany Snell on 07-18-2024 MCH (RBC) [Entitic mass] 33.0 pg High 27.0-32.0 [facility] Mean corpuscular hemoglobin concentration (MCHC) determinationOrdered By: Yobany Snell on 07-18-2024 MCHC (RBC) [Mass/Vol] 34.4 g/dL 32-36 [facility] Mean platelet volume determi nationOrdered By: Yobany Snell on 07-18-2024 Platelet mean volume (Bld) [Entitic vol] 9.0 fL 6.2-12.0 [facility] Monocyte percentageOrdered B y: Yobany Snell on 07-18-2024 Monocytes/100 WBC (Bld) 7.2 % 0-10 [facility] Neutrophil percentageOrdered By: Yobany Snell on 07-18-2024 Neutrophils/100 WBC (Bld) 64.6 % 47-70 [facility] Nucleated red blood cell per centageOrdered By: Yobany Snell on 07-18-2024 Nucleated RBC/100 WBC (Bld) [Ratio] 0 % 0-5 [facility] Platelet countOrdered By: Gamaliel Snell on 07-18-2024 Platelets (Bld) [#/Vol] 514 10*3/uL High 150-450 [facility] Potassium (Unsp spec) [Mass/ Vol]Ordered By: Yobany Snell on 07-18-2024 Potassium [Moles/Vol] 3.7 mmol/L 3.3-5.1 [facility] Potassium measurement (mass/ volume)Ordered By: Yobany Snell on 07-18-2024 Potassium (Unsp spec) [Mass/Vol] 3.7 mmol/L 3.3-5.1 [facility] RBC Auto (Bld) [#/Vol]Ordere d By: Yobany Snell on 07-18-2024 RBC (Bld) [#/Vol] 4.33 10*6/uL 4.2-5.4 [facility] Screening total cholesterol/ high density lipoprotein (HDL) cholesterol ratioOrdered By: Yobany Snell on 07-18-2024 Cholesterol.total/Rhonda sterol in HDL [Mass ratio] 6.40 {ratio} [facility] Serum creatinine measurement (mass/volume)Ordered By: Yobany Snell on 07-18-2024 Creatinine [Mass/Vol] 1.09 mg/dL 0.70-1.20 [facility] Serum globulin measurementOr dered By: Yobany Snell on 07-18-2024 Globulin (S) [Mass/Vol] 3.1 g/dL 2.2-4.2 [facility] Serum glucose measurement (m ass/volume)Ordered By: Yobany Snell on 07-18-2024 Glucose [Mass/Vol] 113 mg/dL High 70-99 [facility] Serum or plasma alanine huggins otransferase (ALT) measurementOrdered By: Yobany Snell 07-18-2024 ALT [Catalytic activity/Vol] 13 U/L <35 [facility] Serum or plasma albumin chace urement (mass/volume)Ordered By: Yobany Snell 07-18-2024 Albumin [Mass/Vol] 4.9 g/dL High 3.4-4.8 [facility] Serum or plasma albumin/glob ulin mass ratioOrdered By: Yobany Snell 07-18-2024 Albumin/Globulin [Mass ratio] 1.6 {ratio} 0.9-2.4 [facility] Serum or plasma alkaline venice sphatase measurementOrdered By: Yobany Snell 07-18-2024 ALP [Catalytic activity/Vol] 136 U/L High 35-104 [facility] Serum or plasma calcium chace urement (mass/volume)Ordered By: Yobany Snell 07-18-2024 Calcium [Mass/Vol] 9.4 mg/dL 7.6-11.0 [facility] Serum or plasma cholesterol in HDL measurement (mass/volume)Ordered By: Yobany Snell 07-18-2024 Cholesterol in HDL [Mass/Vol] 53 mg/dL >40 [facility] Comment on above: National Cholesterol Education Program (NCEP) guidelines:<40 mg/dL: Low HDL-cholesterol (major risk factor for CHD)>= 60 mg/dL: High HDL-cholesterol (negative risk factor for CHD)HDL-cholesterol is affected by a number of factors, e.g. smoking, exercise, hormones, sex and age. Serum or plasma cholesterol measurement (mass/volume)Ordered By: Yobany Snell on 07-18-2024 Cholesterol [Mass/Vol] 336 mg/dL High <201 [facility] Comment on above: Cholesterol level, D esirable <200 mg/dLBorderline high cholesterol 200-239 mg/dLHigh cholesterol >=240 mg/dLRecommendations of the NCEP Adult Treatment Panel for the following risk-cutoff thresholds for the [place] population. Serum or plasma urea nitroge n measurement (mass/volume)Ordered By: Yobany Snell on 07-18-2024 Urea nitrogen [Mass/Vol] 11 mg/dL 4-19 [facility] Sodium levelOrdered By: Yobany Snell on 07-18-2024 Sodium [Moles/Vol] 134 mmol/L 133-145 [facility] TSH DL <= 0.005 mIU/L QnOrde red By: Yobany Snell on 07-18-2024 Thyroid Stimulating Hormone (TSH) 1.310 uIU/mL 0.300-4.20 0 [facility] TSH Qn 1.310 uIU/mL 0.300-4.20 0 [facility] Thyroid Stim Hormone (TSH)on 07-18-2024 TSH 1.310 uIU/mL Normal 0.300-4.20 0 [facility] Comment on above: Performed By: #### L 500.4050, L100.0100 #### [facility] Laboratory [facility] [place], [address] Total proteinOrdered By: Yobany Snell on 07-18-2024 Protein [Mass/Vol] 7.9 g/dL 5.9-8.4 [facility] Triglycerides measurementOrd ered By: Yobany Snell on 07-18-2024 Triglyceride [Mass/Vol] 136 mg/dL <199 [facility] Comment on above: The drugs N-Acetylcy steine and Metamizole may falsely depress this assay. Normal range: <150 mg/dLBorderline High: 150-199 mg/dLHigh: 200-499 mg/dLVery High: >500 mg/dL Vitamin D, 25-hydroxyOrdered By: Yobany Snell on 07-18-2024 Vitamin D 25-Hydroxy 29.5 ng/mL Low 30-100 [facility] Comment on above: Vitamin D StatusDefi ciency: <20 ng/mL (50nmol/L)Insufficiency: 20-30 ng/mL (50-75 nmol/L)Sufficiency: 30-100 ng/mL (75-250 nmol/L)Toxicity: >100 ng/mL (>250 nmol/L) White blood cell (WBC) count Ordered By: Yobany Snell on 07-18-2024 WBC (Bld) [#/Vol] 8.3 10*3/uL 4.4-11.0 [facility] 42-LA-Wkvqiqq DOrdered By: Hua Snell on 04-17-2024 Vitamin D 25-Hydroxy 33.1 ng/mL [facility] Comment on above: Vitamin D 25(OH) Sta tus Range Deficiency <20 ng/mL (50nmol/L) Insufficiency 20 - 30 ng/mL (50 - 75 nmol/L) Sufficiency 30 - 100 ng/mL (75 - 250 nmol/L) Toxicity >100 ng/mL (>250 nmol/L) Absolute neutrophil countOrd ered By: Yobany Snell on 04-17-2024 Neutrophils (Bld) [#/Vol] 7.4 10*3/uL 2.0-7.7 [facility] Albumin to globulin ratioOrd ered By: Yobany Snell on 04-17-2024 Albumin/Globulin [Mass ratio] 1.3 {ratio} 0.9-2.4 [facility] Basophil percentageOrdered B y: Yobany Snell on 04-17-2024 Basophils/100 WBC (Bld) 0.6 % 0-1 [facility] Bilirubin, totalOrdered By: Yobany Snell on 04-17-2024 Bilirubin [Mass/Vol] 0.40 mg/dL 0.20-1.00 [facility] Comment on above: For patients on eltr ombopag therapy, use of Dimension Flomot TBIL is not recommended. Blood urea nitrogen (BUN)/cr eatinine ratioOrdered By: Yobany Snell on 04-17-2024 Urea nitrogen/Creatinine [Mass ratio] 12.8 mg/mg 10-20 [facility] CBC W/Diff, Automatedon 12-0 Absolute Lymph 2.42 X10 3/uL Normal 0.83-4.51 [facility] Comment on above: Performed By: #### L 500.4050, L100.0100 #### [facility] Laboratory [address] [place], [address] Absolute Neut 7.4 X10 3/uL Normal 2.0-7.7 [facility] Comment on above: Performed By: #### L 500.4050, L100.0100 #### [facility] Laboratory [address] [place], [address] Basophils/100 WBC (Bld) 0.6 % Normal 0-1 [facility] Comment on above: Performed By: #### L 500.4050, L100.0100 #### [facility] Laboratory [address] [place], [address] Eosinophils/100 WBC (Bld) 2.6 % Normal 0-5 [facility] Comment on above: Performed By: #### L 500.4050, L100.0100 #### [facility] Laboratory [address] [place], [address] Erythrocyte distribution width (RBC) [Ratio] 12.4 % Normal 11.6-14.6 [facility] Comment on above: Performed By: #### L 500.4050, L100.0100 #### [facility] Laboratory [address] [place], [address] Hematocrit (Bld) [Volume fraction] 39.1 % Normal 37-47 [facility] Comment on above: Performed By: #### L 500.4050, L100.0100 #### [facility] Laboratory [address] [place], [address] Hemoglobin (Bld) [Mass/Vol] 12.8 g/dL Normal 12.0-15.0 [facility] Comment on above: Performed By: #### L 500.4050, L100.0100 #### [facility] Laboratory [address] [place], [address] IG% 0.300 Normal 0.0-0.9 [facility] Comment on above: Result Comment: IG% - Immature Granulocytes (promyelocytes, myelocytes and metamyelocytes) > 1% indicates that a LEFT SHIFT is Present. Performed By: #### L 500.4050, L100.0100 #### [facility] Laboratory [address] [place], [address] Lymphocytes/100 WBC (Bld) 22.0 % Normal 19-41 [facility] Comment on above: Performed By: #### L 500.4050, L100.0100 #### [facility] Laboratory [address] [place], [address] MCH (RBC) [Entitic mass] 32.5 pg High 27.0-32.0 [facility] Comment on above: Performed By: #### L 500.4050, L100.0100 #### [facility] Laboratory [address] [place], [address] MCHC (RBC) [Mass/Vol] 32.7 g/dL Normal 32-36 [facility] Comment on above: Performed By: #### L 500.4050, L100.0100 #### [facility] Laboratory [address] [place], [address] MCV (RBC) [Entitic vol] 99.2 fL High 81-99 [facility] Comment on above: Performed By: #### L 500.4050, L100.0100 #### [facility] Laboratory [address] [place], [address] Monocytes/100 WBC (Bld) 6.8 % Normal 0-10 [facility] Comment on above: Performed By: #### L 500.4050, L100.0100 #### [facility] Laboratory [address] [place], [address] Neutrophils/100 WBC (Bld) 67.7 % Normal 47-70 [facility] Comment on above: Performed By: #### L 500.4050, L100.0100 #### [facility] Laboratory [address] [place], [address] Nucleated RBC (Bld) [#/Vol] 0 10*3/uL Normal 0-5 [facility] Comment on above: Performed By: #### L 500.4050, L100.0100 #### [facility] Laboratory [address] [place], [address] Platelet mean volume (Bld) [Entitic vol] 9.2 fL Normal 6.2-12.0 [facility] Comment on above: Performed By: #### L 500.4050, L100.0100 #### [facility] Laboratory [address] [place], [address] Platelets (Bld) [#/Vol] 457 10*3/uL High 150-450 [facility] Comment on above: Performed By: #### L 500.4050, L100.0100 #### [facility] Laboratory [address] [place], [address] RBC (Bld) [#/Vol] 3.94 10*6/uL Low 4.2-5.4 [facility] Comment on above: Performed By: #### L 500.4050, L100.0100 #### [facility] Laboratory [address] [place], [address] RDW SD 45.6 fl High 35.1-43.9 [facility] Comment on above: Performed By: #### L 500.4050, L100.0100 #### [facility] Laboratory [address] [place], [address] WBC (Bld) [#/Vol] 11.0 10*3/uL Normal 4.4-11.0 [facility] Comment on above: Performed By: #### L 500.4050, L100.0100 #### [facility] Laboratory [address] [place], [address] Carbon dioxide measurementOr dered By: Yobany Snell on 04-17-2024 CO2 [Moles/Vol] 31.0 mmol/L 21.0-32.0 [facility] Chloride measurementOrdered By: Yobany Snell on 04-17-2024 Chloride [Moles/Vol] 98 mmol/L 98-107 [facility] Comprehensive Metabolic Prof ilon 04-17-2024 Albumin [Mass/Vol] 4.3 g/dL Normal 3.2-5.0 [facility] Comment on above: Performed By: #### L 500.4050, L100.0100 #### [facility] Laboratory [address] [place], [address] Albumin/Globulin [Mass ratio] 1.3 {ratio} Normal 0.9-2.4 [facility] Comment on above: Performed By: #### L 500.4050, L100.0100 #### [facility] Laboratory [address] [place], [address] ALK P 121 U/L High 45-117 [facility] Comment on above: Performed By: #### L 500.4050, L100.0100 #### [facility] Laboratory [address] [place], [address] ALT [Catalytic activity/Vol] 17 U/L Normal 13-56 [facility] Comment on above: Performed By: #### L 500.4050, L100.0100 #### [facility] Laboratory [address] [place], [address] AST [Catalytic activity/Vol] 11 U/L Low 15-37 [facility] Comment on above: Performed By: #### L 500.4050, L100.0100 #### [facility] Laboratory [address] [place], [address] Bilirubin [Mass/Vol] 0.40 mg/dL Normal 0.20-1.00 [facility] Comment on above: Result Comment: For patients on eltrombopag therapy, use of Dimension Flomot TBIL is not recommended. Performed By: #### L 500.4050, L100.0100 #### [facility] Laboratory [address] [place], [address] BUN/CRE 12.8 RATIO Normal 10-20 [facility] Comment on above: Performed By: #### L 500.4050, L100.0100 #### [facility] Laboratory [address] [place], [address] CA,Total 9.2 mg/dL Normal 8.5-10.1 [facility] Comment on above: Performed By: #### L 500.4050, L100.0100 #### [facility] Laboratory [address] [place], [address] Chloride [Moles/Vol] 98 mmol/L Normal 98-107 [facility] Comment on above: Performed By: #### L 500.4050, L100.0100 #### [facility] Laboratory [address] [place], [address] CO2 [Moles/Vol] 31.0 mmol/L Normal 21.0-32.0 [facility] Comment on above: Performed By: #### L 500.4050, L100.0100 #### [facility] Laboratory [address] [place], [address] Creatinine [Mass/Vol] 1.17 mg/dL High 0.55-1.02 [facility] Comment on above: Result Comment: The validity of the calculated GFR GFRAA in patients over 70 years has not been determined. Clinical correlation is essential. Performed By: #### L 500.4050, L100.0100 #### [facility] [address] [place], [address] EST GFR - AA 60 mL/min Normal >60 [facility] Comment on above: Result Comment: Afri can Peruvian GFR Calc Performed By: #### L 500.4050, L100.0100 #### [facility] [address] [place], [address] GAP 6 Normal 5-15 [facility] Comment on above: Performed By: #### L 500.4050, L100.0100 #### [facility] [address] [place], [address] GFR/1.73 sq M.predicted among non-blacks MDRD (S/P/Bld) [Vol rate/Area] 49 mL/min/{1.73_m2} Low >60 [facility] Comment on above: Result Comment: Non- GFR Calc Performed By: #### L 500.4050, L100.0100 #### [facility] [address] [place], [address] Globulin (S) [Mass/Vol] 3.3 g/dL Normal 2.2-4.2 [facility] Comment on above: Performed By: #### L 500.4050, L100.0100 #### [facility] [address] [place], [address] Glucose [Mass/Vol] 92 mg/dL Normal 74-106 [facility] Comment on above: Performed By: #### L 500.4050, L100.0100 #### [facility] [address] [place], [address] Potassium [Moles/Vol] 3.4 mmol/L Low 3.5-5.1 [facility] Comment on above: Performed By: #### L 500.4050, L100.0100 #### [facility] [address] [place], [address] Sodium [Moles/Vol] 135 mmol/L Low 136-145 [facility] Comment on above: Performed By: #### L 500.4050, L100.0100 #### [facility] [address] [place], [address] T PROT 7.6 g/dL Normal 6.4-8.2 [facility] Comment on above: Performed By: #### L 500.4050, L100.0100 #### [facility] [address] [place], [address] Urea nitrogen [Mass/Vol] 15 mg/dL Normal 7-18 [facility] Comment on above: Performed By: #### L 500.4050, L100.0100 #### [facility] [address] [place], [address] Eosinophil percentageOrdered By: Yobany Snell on 04-17-2024 Eosinophils/100 WBC (Bld) 2.6 % 0-5 [facility] Erythrocyte distribution wid th ratioOrdered By: Yobany Snell on 04-17-2024 Erythrocyte distribution width (RBC) [Ratio] 12.4 % 11.6-14.6 [facility] Erythrocyte distribution wid th standard deviationOrdered By: Yobany Snell on 04-17-2024 Erythrocyte distribution width (RBC) [Entitic vol] 45.6 fL High 35.1-43.9 [facility] Estimated glomerular filtrat ion rate (GFR) AmericanOrdered By: Yobany Snell on 04-17-2024 Estimated GFR (MDRD) Amer 60 mL/min >60 [facility] Comment on above: GFR Calc Glomerular filtration rate ( GFR) estimationOrdered By: Yobany Snell on 04-17-2024 Estimated GFR (MDRD) Non-Af Amer 49 mL/min Low >60 [facility] Comment on above: Non- GFR Calc Glucose measurementOrdered B y: Yobany nSell on 04-17-2024 Glucose [Mass/Vol] 92 mg/dL 74-106 [facility] Hematocrit Auto (Bld) [Volum e fraction]Ordered By: Yobany Snell on 04-17-2024 Hematocrit (Bld) [Volume fraction] 39.1 % 37-47 [facility] Hemoglobin measurementOrdere d By: Yobany Snell on 04-17-2024 Hemoglobin (Bld) [Mass/Vol] 12.8 g/dL 12.0-15.0 [facility] High density lipoprotein (HD L) measurementOrdered By: Yobany Snell on 04-17-2024 Cholesterol in HDL [Mass/Vol] 47 mg/dL >40 [facility] Comment on above: The drugs N-Acetylcy steine and Metamizole may falsely depress this assay. Reference Range HDL <40 mg/dL Low HDL Cholesterol HDL >or= 60 mg/dL High HDL Cholesterol Immature granulocytes/100 WB C Auto (Bld)Ordered By: Yobany Snell on 04-17-2024 Immature granulocytes/100 WBC (Bld) 0.300 % 0.0-0.9 [facility] Comment on above: IG% - Immature Granu locytes (promyelocytes, myelocytes and metamyelocytes) > 1% indicates that a LEFT SHIFT is Present. Laboratory - Chemistry and C hemistry - challengeOrdered By: Yobany Snell on 04-17-2024 AST [Catalytic activity/Vol] 11 U/L Low 15-37 [facility] Lipid Profileon 04-17-2024 Cholesterol [Mass/Vol] 243 mg/dL High 200 [facility] Comment on above: Result Comment: <200 mg/dL Desirable 200-240 mg/dL Borderline >240 mg/dL High Risk Performed By: #### L 500.4050, L100.0100 #### [facility] [address] [place], [address] Cholesterol in HDL [Mass/Vol] 47 mg/dL Normal [facility] Comment on above: Result Comment: The drugs N-Acetylcysteine and Metamizole may falsely depress this assay. Reference Range HDL <40 mg/dL Low HDL Cholesterol HDL >or= 60 mg/dL High HDL Cholesterol Performed By: #### L 500.4050, L100.0100 #### [facility] [address] [place], [address] Cholesterol in LDL [Mass/Vol] 150 mg/dL High 0-130 [facility] Comment on above: Performed By: #### L 500.4050, L100.0100 #### [facility] [address] [place], [address] Cholesterol in VLDL [Mass/Vol] 46 mg/dL High 5-40 [facility] Comment on above: Performed By: #### L 500.4050, L100.0100 #### [facility] [address] [place], [address] Triglyceride [Mass/Vol] 230 mg/dL High [facility] Comment on above: Result Comment: The drugs N-Acetylcysteine and Metamizole may falsely depress this assay. Serum Triglycerides Reference Interval Normal <150 mg/dL Borderline high 150 - 199 mg/dL High 200 - 499 mg/dL Very High > or = 500 mg/dL Performed By: #### L 500.4050, L100.0100 #### [facility] [address] [place], [address] Low density lipoprotein (LDL ) cholesterol measurementOrdered By: Yobany Snell on 04-17-2024 Cholesterol in LDL [Mass/Vol] 150 mg/dL High 0-130 [facility] Lymphocytes Auto (Unsp spec) [#/Vol]Ordered By: Yobany Snell on 04-17-2024 Lymphocytes (Bld) [#/Vol] 2.42 10*3/uL 0.83-4.51 [facility] Lymphocytes/100 WBC Auto (Un sp spec)Ordered By: Yobany Snell on 04-17-2024 Lymphocytes/100 WBC (Bld) 22.0 % 19-41 [facility] MCV (mean corpuscular volume ) determinationOrdered By: Yobany Snell on 04-17-2024 MCV (RBC) [Entitic vol] 99.2 fL High 81-99 [facility] Mean corpuscular hemoglobin (MCH) determinationOrdered By: Yobany Snell on 04-17-2024 MCH (RBC) [Entitic mass] 32.5 pg High 27.0-32.0 [facility] Mean corpuscular hemoglobin concentration (MCHC) determinationOrdered By: Yobany Snell on 04-17-2024 MCHC (RBC) [Mass/Vol] 32.7 g/dL 32-36 [facility] Mean platelet volume determi nationOrdered By: Yobany Snell on 04-17-2024 Platelet mean volume (Bld) [Entitic vol] 9.2 fL 6.2-12.0 [facility] Monocyte percentageOrdered B y: Yobany Snell on 04-17-2024 Monocytes/100 WBC (Bld) 6.8 % 0-10 [facility] Neutrophil percentageOrdered By: Yobany Snell on 04-17-2024 Neutrophils/100 WBC (Bld) 67.7 % 47-70 [facility] Nucleated red blood cell per centageOrdered By: Yobany Snell on 04-17-2024 Nucleated RBC/100 WBC (Bld) [Ratio] 0 % 0-5 [facility] Platelet countOrdered By: Gamaliel Snell on 04-17-2024 Platelets (Bld) [#/Vol] 457 10*3/uL High 150-450 [facility] Potassium measurementOrdered By: Yobany Snell on 04-17-2024 Potassium [Moles/Vol] 3.4 mmol/L Low 3.5-5.1 [facility] RBC Auto (Bld) [#/Vol]Ordere d By: Yobany Snell on 04-17-2024 RBC (Bld) [#/Vol] 3.94 10*6/uL Low 4.2-5.4 [facility] Serum anion gap measurementO rdered By: Yobany Snell on 04-17-2024 Anion gap [Moles/Vol] 6 mmol/L 5-15 [facility] Serum globulin measurementOr dered By: Yobany Snell on 04-17-2024 Globulin (S) [Mass/Vol] 3.3 g/dL 2.2-4.2 [facility] Serum or plasma alanine huggins otransferase (ALT) measurementOrdered By: Yobany Snell 04-17-2024 ALT [Catalytic activity/Vol] 17 U/L 13-56 [facility] Serum or plasma albumin chace urement (mass/volume)Ordered By: Yobany Snell on 04-17-2024 Albumin [Mass/Vol] 4.3 g/dL 3.2-5.0 [facility] Serum or plasma alkaline venice sphatase measurementOrdered By: Yobany Snell on 04-17-2024 ALP [Catalytic activity/Vol] 121 U/L High 45-117 [facility] Serum or plasma calcium chace urement (mass/volume)Ordered By: Yobany Snell on 04-17-2024 Calcium [Mass/Vol] 9.2 mg/dL 8.5-10.1 [facility] Serum or plasma cholesterol measurement (mass/volume)Ordered By: Yobany Snell on 04-17-2024 Cholesterol [Mass/Vol] 243 mg/dL High <200 [facility] Comment on above: <200 mg/dL Desirable 200-240 mg/dL Borderline >240 mg/dL High Risk Serum or plasma creatinine m easurement (mass/volume)Ordered By: Yobany Snell on 04-17-2024 Creatinine [Mass/Vol] 1.17 mg/dL High 0.55-1.02 [facility] Comment on above: The validity of the calculated GFR & GFRAA in patients over 70 years has not been determined. Clinical correlation is essential. Serum or plasma urea nitroge n measurement (mass/volume)Ordered By: Yobany Snell on 04-17-2024 Urea nitrogen [Mass/Vol] 15 mg/dL 7-18 [facility] Sodium levelOrdered By: Yobany Snell on 04-17-2024 Sodium [Moles/Vol] 135 mmol/L Low 136-145 [facility] TSH QnOrdered By: Yobany Snell o n 04-17-2024 Thyroid Stimulating Hormone (TSH) 1.990 uIU/mL 0.358-3.74 0 [facility] Thyroid Stim Hormone (TSH)on 04-17-2024 TSH 1.990 uIU/mL Normal 0.358-3.74 0 [facility] Comment on above: Performed By: #### L 500.4050, L100.0100 #### [facility] [address] [place], [place], [id number] Total proteinOrdered By: Yobany Snell on 04-17-2024 Protein [Mass/Vol] 7.6 g/dL 6.4-8.2 [facility] Triglycerides measurementOrd ered By: Yobany Snell on 04-17-2024 Triglyceride [Mass/Vol] 230 mg/dL High <199 [facility] Comment on above: The drugs N-Acetylcy steine and Metamizole may falsely depress this assay.Serum Triglycerides Reference Interval Normal <150 mg/dL Borderline high 150 - 199 mg/dL High 200 - 499 mg/dL Very High > or = 500 mg/dL Very low density lipoprotein (VLDL) cholesterol measurementOrdered By: Yobany Snell on 04-17-2024 VLDL Cholesterol 46 mg/dL High 5-40 [facility] Vitamin D,25 Hydroxyon 04-17 Vitamin D 25-OH 33.1 ng/mL Normal [facility] Comment on above: Result Comment: Shelbi min D 25(OH) Status Range Deficiency <20 ng/mL (50nmol/L) Insufficiency 20 - 30 ng/mL (50 - 75 nmol/L) Sufficiency 30 - 100 ng/mL (75 - 250 nmol/L) Toxicity >100 ng/mL (>250 nmol/L) Performed By: #### L 500.4050, L100.0100 #### [facility] [address] [place], [address] White blood cell (WBC) count Ordered By: Yobany Snell on 04-17-2024 WBC (Bld) [#/Vol] 11.0 10*3/uL 4.4-11.0 [facility] SCRN MAMM (CAD)W/TERRENCE BILATo n 02-07-2024 SCRN MAMM (CAD)W/TERRENCE BILAT [facility] Imaging Services [address] [place] [address] SCRN MAMM (CAD)W/TERRENCE BILAT MR#: [id number] Acct: [id number] Name: NAVIN AUGUST I Rep #: [id number] : 1960 F 63 From: Flo paredes MD PCP: Dr. Yobany Snell MD Status: [facility] Study: SCRN MAMM (CAD)W/TERRENCE BILAT Date of Exam: 01/16 08/07 Exam# [id number] Ordering Dr: Yobany Snell MD [id number] MAMMOGRAPHY - BILATERAL SCREENING REASON FOR EXAM: [...] delay biopsy of a clinically suspicious abnormality. [id number] Electronically Signed: Flo Reyes MD at 8:30 EDT , CC: Dr. Yobany Snell MD Cylinder Inspector And Tester: Signed Normal [facility] CBC W/Diff, Automatedon 08-2 Absolute Lymph 2.13 X10 3/uL Normal 0.83-4.51 [facility] Comment on above: Performed By: #### L 506.1000, L500.4050, L500.4100, L501.9520, L100.0100 #### [facility] [address] [place], [address] Absolute Neut 5.1 X10 3/uL Normal 2.0-7.7 [facility] Comment on above: Performed By: #### L 506.1000, L500.4050, L500.4100, L501.9520, L100.0100 #### [facility] [address] [place], [address] Basophils/100 WBC (Bld) 0.8 % Normal 0-1 [facility] Comment on above: Performed By: #### L 506.1000, L500.4050, L500.4100, L501.9520, L100.0100 #### [facility] [address] [place], [address] Eosinophils/100 WBC (Bld) 1.4 % Normal 0-5 [facility] Comment on above: Performed By: #### L 506.1000, L500.4050, L500.4100, L501.9520, L100.0100 #### [facility] [address] [place], [address] Erythrocyte distribution width (RBC) [Ratio] 12.5 % Normal 11.6-14.6 [facility] Comment on above: Performed By: #### L 506.1000, L500.4050, L500.4100, L501.9520, L100.0100 #### [facility] [address] [place], [address] Hematocrit (Bld) [Volume fraction] 37.1 % Normal 37-47 [facility] Comment on above: Performed By: #### L 506.1000, L500.4050, L500.4100, L501.9520, L100.0100 #### [facility] [address] [place], [address] Hemoglobin (Bld) [Mass/Vol] 12.4 g/dL Normal 12.0-15.0 [facility] Comment on above: Performed By: #### L 506.1000, L500.4050, L500.4100, L501.9520, L100.0100 #### [facility] [address] [place], [address] IG% 0.300 Normal 0.0-0.9 [facility] Comment on above: Result Comment: IG% - Immature Granulocytes (promyelocytes, myelocytes and metamyelocytes) > 1% indicates that a LEFT SHIFT is Present. Performed By: #### L 506.1000, L500.4050, L500.4100, L501.9520, L100.0100 #### [facility] [address] [place], [address] Lymphocytes/100 WBC (Bld) 26.9 % Normal 19-41 [facility] Comment on above: Performed By: #### L 506.1000, L500.4050, L500.4100, L501.9520, L100.0100 #### [facility] [address] [place], [address] MCH (RBC) [Entitic mass] 32.7 pg High 27.0-32.0 [facility] Comment on above: Performed By: #### L 506.1000, L500.4050, L500.4100, L501.9520, L100.0100 #### [facility] [address] [place], [address] MCHC (RBC) [Mass/Vol] 33.4 g/dL Normal 32-36 [facility] Comment on above: Performed By: #### L 506.1000, L500.4050, L500.4100, L501.9520, L100.0100 #### [facility] [address] [place], [address] MCV (RBC) [Entitic vol] 97.9 fL Normal 81-99 [facility] Comment on above: Performed By: #### L 506.1000, L500.4050, L500.4100, L501.9520, L100.0100 #### [facility] [address] [place], [address] Monocytes/100 WBC (Bld) 6.3 % Normal 0-10 [facility] Comment on above: Performed By: #### L 506.1000, L500.4050, L500.4100, L501.9520, L100.0100 #### [facility] [address] [place], [address] Neutrophils/100 WBC (Bld) 64.3 % Normal 47-70 [facility] Comment on above: Performed By: #### L 506.1000, L500.4050, L500.4100, L501.9520, L100.0100 #### [facility] [address] [place], [address] Nucleated RBC (Bld) [#/Vol] 0 10*3/uL Normal 0-5 [facility] Comment on above: Performed By: #### L 506.1000, L500.4050, L500.4100, L501.9520, L100.0100 #### [facility] [address] [place], [address] Platelet mean volume (Bld) [Entitic vol] 8.9 fL Normal 6.2-12.0 [facility] Comment on above: Performed By: #### L 506.1000, L500.4050, L500.4100, L501.9520, L100.0100 #### [facility] [address] [place], [address] Platelets (Bld) [#/Vol] 506 10*3/uL High 150-450 [facility] Comment on above: Performed By: #### L 506.1000, L500.4050, L500.4100, L501.9520, L100.0100 #### [facility] [address] [place], [address] RBC (Bld) [#/Vol] 3.79 10*6/uL Low 4.2-5.4 [facility] Comment on above: Performed By: #### L 506.1000, L500.4050, L500.4100, L501.9520, L100.0100 #### [facility] [address] [place], [address] RDW SD 44.8 fl High 35.1-43.9 [facility] Comment on above: Performed By: #### L 506.1000, L500.4050, L500.4100, L501.9520, L100.0100 #### [facility] [address] [place], [address] WBC (Bld) [#/Vol] 7.9 10*3/uL Normal 4.4-11.0 [facility] Comment on above: Performed By: #### L 506.1000, L500.4050, L500.4100, L501.9520, L100.0100 #### [facility] [address] [place], [address] Comprehensive Metabolic Prof [facility] 01-12-2024 Albumin [Mass/Vol] 4.0 g/dL Normal 3.2-5.0 [facility] Comment on above: Performed By: #### L 506.1000, L500.4050, L500.4100, L501.9520, L100.0100 #### [facility] [address] [place], [address] Albumin/Globulin [Mass ratio] 1.2 {ratio} Normal 0.9-2.4 [facility] Comment on above: Performed By: #### L 506.1000, L500.4050, L500.4100, L501.9520, L100.0100 #### [facility] [address] [place], [address] ALK P 95 U/L Normal 45-117 [facility] Comment on above: Performed By: #### L 506.1000, L500.4050, L500.4100, L501.9520, L100.0100 #### [facility] [address] [place], [address] ALT [Catalytic activity/Vol] 20 U/L Normal 13-56 [facility] Comment on above: Performed By: #### L 506.1000, L500.4050, L500.4100, L501.9520, L100.0100 #### [facility] [address] [place], [address] AST [Catalytic activity/Vol] 14 U/L Low 15-37 [facility] Comment on above: Performed By: #### L 506.1000, L500.4050, L500.4100, L501.9520, L100.0100 #### [facility] [address] [place], [address] Bilirubin [Mass/Vol] 0.30 mg/dL Normal 0.20-1.00 [facility] Comment on above: Result Comment: For patients on eltrombopag therapy, use of Dimension Flomot TBIL is not recommended. Performed By: #### L 506.1000, L500.4050, L500.4100, L501.9520, L100.0100 #### [facility] [address] [place], [address] BUN/CRE 9.1 RATIO Low 10-20 [facility] Comment on above: Performed By: #### L 506.1000, L500.4050, L500.4100, L501.9520, L100.0100 #### [facility] [address] [place], [address] CA,Total 9.2 mg/dL Normal 8.5-10.1 [facility] Comment on above: Performed By: #### L 506.1000, L500.4050, L500.4100, L501.9520, L100.0100 #### [facility] [address] [place], [address] Chloride [Moles/Vol] 97 mmol/L Low 98-107 [facility] Comment on above: Performed By: #### L 506.1000, L500.4050, L500.4100, L501.9520, L100.0100 #### [facility] [address] [place], [address] CO2 [Moles/Vol] 29.0 mmol/L Normal 21.0-32.0 [facility] Comment on above: Performed By: #### L 506.1000, L500.4050, L500.4100, L501.9520, L100.0100 #### [facility] [address] [place], [address] Creatinine [Mass/Vol] 0.99 mg/dL Normal 0.55-1.02 [facility] Comment on above: Result Comment: The validity of the calculated GFR GFRAA in patients over 70 years has not been determined. Clinical correlation is essential. Performed By: #### L 506.1000, L500.4050, L500.4100, L501.9520, L100.0100 #### [facility] [address] [place], [address] EST GFR - AA 73 mL/min Normal >60 [facility] Comment on above: Result Comment: Afri can Peruvian GFR Calc Performed By: #### L 506.1000, L500.4050, L500.4100, L501.9520, L100.0100 #### [facility] [address] [place], [address] GAP 5 Normal 5-15 [facility] Comment on above: Performed By: #### L 506.1000, L500.4050, L500.4100, L501.9520, L100.0100 #### [facility] [address] [place], [address] GFR/1.73 sq M.predicted among non-blacks MDRD (S/P/Bld) [Vol rate/Area] 60 mL/min/{1.73_m2} Normal >60 [facility] Comment on above: Result Comment: Non- GFR Calc Performed By: #### L 506.1000, L500.4050, L500.4100, L501.9520, L100.0100 #### [facility] [address] [place], [address] Globulin (S) [Mass/Vol] 3.4 g/dL Normal 2.2-4.2 [facility] Comment on above: Performed By: #### L 506.1000, L500.4050, L500.4100, L501.9520, L100.0100 #### [facility] [address] [place], [address] Glucose [Mass/Vol] 109 mg/dL High 74-106 [facility] Comment on above: Result Comment: Fast ing Glucose result from 100 to 125 mg/dL suggests IMPAIRED HOMEOSTASIS per A.D.A. criteria. Performed By: #### L 506.1000, L500.4050, L500.4100, L501.9520, L100.0100 #### [facility] [address] [place], [address] Potassium [Moles/Vol] 3.8 mmol/L Normal 3.5-5.1 [facility] Comment on above: Performed By: #### L 506.1000, L500.4050, L500.4100, L501.9520, L100.0100 #### [facility] [address] [place], [address] Sodium [Moles/Vol] 131 mmol/L Low 136-145 [facility] Comment on above: Performed By: #### L 506.1000, L500.4050, L500.4100, L501.9520, L100.0100 #### [facility] [address] [place], [address] T PROT 7.4 g/dL Normal 6.4-8.2 [facility] Comment on above: Performed By: #### L 506.1000, L500.4050, L500.4100, L501.9520, L100.0100 #### [facility] [address] [place], [address] Urea nitrogen [Mass/Vol] 9 mg/dL Normal 7-18 [facility] Comment on above: Performed By: #### L 506.1000, L500.4050, L500.4100, L501.9520, L100.0100 #### [facility] [address] [place], [address] Lipid Profileon 01-12-2024 Cholesterol [Mass/Vol] 259 mg/dL High 200 [facility] Comment on above: Result Comment: <200 mg/dL Desirable 200-240 mg/dL Borderline >240 mg/dL High Risk Performed By: #### L 506.1000, L500.4050, L500.4100, L501.9520, L100.0100 #### [facility] [address] [place], [address] Cholesterol in HDL [Mass/Vol] 51 mg/dL Normal [facility] Comment on above: Result Comment: The drugs N-Acetylcysteine and Metamizole may falsely depress this assay. Reference Range HDL <40 mg/dL Low HDL Cholesterol HDL >or= 60 mg/dL High HDL Cholesterol Performed By: #### L 506.1000, L500.4050, L500.4100, L501.9520, L100.0100 #### [facility] [address] [place], [address] Cholesterol in LDL [Mass/Vol] 176 mg/dL High 0-130 [facility] Comment on above: Performed By: #### L 506.1000, L500.4050, L500.4100, L501.9520, L100.0100 #### [facility] [address] [place], [address] Cholesterol in VLDL [Mass/Vol] 32 mg/dL Normal 5-40 [facility] Comment on above: Performed By: #### L 506.1000, L500.4050, L500.4100, L501.9520, L100.0100 #### [facility] [address] [place], [address] Triglyceride [Mass/Vol] 160 mg/dL Normal [facility] Comment on above: Result Comment: The drugs N-Acetylcysteine and Metamizole may falsely depress this assay. Serum Triglycerides Reference Interval Normal <150 mg/dL Borderline high 150 - 199 mg/dL High 200 - 499 mg/dL Very High > or = 500 mg/dL Performed By: #### L 506.1000, L500.4050, L500.4100, L501.9520, L100.0100 #### [facility] [address] [place], [address] Thyroid Stim Hormone (TSH)on 01-12-2024 TSH 0.893 uIU/mL Normal 0.358-3.74 0 [facility] Comment on above: Performed By: #### L 506.1000, L500.4050, L500.4100, L501.9520, L100.0100 #### [facility] [address] [place], [address] Vitamin D,25 Hydroxyon 01-11 Vitamin D 25-OH 32.4 ng/mL Normal [facility] Comment on above: Result Comment: Shelbi min D 25(OH) Status Range Deficiency <20 ng/mL (50nmol/L) Insufficiency 20 - 30 ng/mL (50 - 75 nmol/L) Sufficiency 30 - 100 ng/mL (75 - 250 nmol/L) Toxicity >100 ng/mL (>250 nmol/L) Performed By: #### L 506.1000, L500.4050, L500.4100, L501.9520, L100.0100 #### [facility] [address] [place], [address] Absolute lymphocyte countOrd ered By: Yobany Snell on 07-15-2023 Lymphocytes Auto (Unsp spec) [#/Vol] 1.80 10*3/uL 0.83-4.51 [facility] Automated lymphocyte count a s percentage of total leukocytesOrdered By: Yobany Snell on 07-15-2023 Lymphocytes/100 WBC Auto (Unsp spec) 29.4 % 19-41 [facility] Basophil percentageOrdered B y: Yobany Snell on 07-15-2023 Basophils/100 WBC (Bld) 1.1 % 0-1 [facility] Bilirubin [Mass/Vol] 0.30 mg/dL 0.20-1.00 [facility] Comment on above: For patients on eltr ombopag therapy, use of Dimension Flomot TBIL is not recommended. Chloride [Moles/Vol] 101 mmol/L 98-107 [facility] Cholesterol [Mass/Vol] 244 mg/dL <200 [facility] Comment on above: <200 mg/dL Desirable 200-240 mg/dL Borderline >240 mg/dL High Risk Eosinophils/100 WBC (Bld) 2.8 % 0-5 [facility] Glucose [Mass/Vol] 118 mg/dL 74-106 [facility] Comment on above: Fasting Glucose resu lt from 100 to 125 mg/dL suggests IMPAIRED HOMEOSTASIS per A.D.A. criteria. Hemoglobin (Bld) [Mass/Vol] 13.8 g/dL 12.0-15.0 [facility] Monocytes/100 WBC (Bld) 7.7 % 0-10 [facility] Neutrophils (Bld) [#/Vol] 3.6 10*3/uL 2.0-7.7 [facility] Neutrophils/100 WBC (Bld) 58.7 % 47-70 [facility] Potassium [Moles/Vol] 4.1 mmol/L 3.5-5.1 [facility] Protein [Mass/Vol] 7.6 g/dL 6.4-8.2 [facility] Sodium [Moles/Vol] 135 mmol/L 136-145 [facility] Triglyceride [Mass/Vol] 128 mg/dL <199 [facility] Comment on above: The drugs N-Acetylcy steine and Metamizole may falsely depress this assay.Serum Triglycerides Reference Interval Normal <150 mg/dL Borderline high 150 - 199 mg/dL High 200 - 499 mg/dL Very High > or = 500 mg/dL WBC (Bld) [#/Vol] 6.1 10*3/uL 4.4-11.0 [facility] Determination of erythrocyte mean corpuscular volume (MCV)Ordered By: Yobany Snell on 07-15-2023 MCV (RBC) [Entitic vol] 96.0 fL 81-99 [facility] Erythrocyte distribution wid th ratioOrdered By: Yobany Snell 07-15-2023 Erythrocyte distribution width (RBC) [Ratio] 12.3 % 11.6-14.6 [facility] Erythrocyte distribution wid th standard deviationOrdered By: Yobany Snell on 07-15-2023 Erythrocyte distribution width (RBC) [Entitic vol] 43.5 fL 35.1-43.9 [facility] Hematocrit Auto (Bld) [Volum e fraction]Ordered By: Yobany Snell 07-15-2023 Hematocrit (Bld) [Volume fraction] 40.7 % 37-47 [facility] Immature granulocytes/100 WB C Auto (Bld)Ordered By: Yobany Snell on 07-15-2023 Immature granulocytes/100 WBC (Bld) 0.300 % 0.0-0.9 [facility] Comment on above: IG% - Immature Granu locytes (promyelocytes, myelocytes and metamyelocytes) > 1% indicates that a LEFT SHIFT is Present. Laboratory - Chemistry and C hemistry - challengeOrdered By: Yobany Snell on 07-15-2023 Albumin/Globulin [Mass ratio] 1.1 {ratio} 0.9-2.4 [facility] ALP [Catalytic activity/Vol] 100 U/L 45-117 [facility] ALT [Catalytic activity/Vol] 17 U/L 13-56 [facility] Cholesterol in HDL [Mass/Vol] 48 mg/dL >40 [facility] Comment on above: The drugs N-Acetylcy steine and Metamizole may falsely depress this assay. Reference Range HDL <40 mg/dL Low HDL Cholesterol HDL >or= 60 mg/dL High HDL Cholesterol Cholesterol in LDL [Mass/Vol] 170 mg/dL 0-130 [facility] CO2 [Moles/Vol] 28.0 mmol/L 21.0-32.0 [facility] Globulin (S) [Mass/Vol] 3.6 g/dL 2.2-4.2 [facility] Urea nitrogen/Creatinine [Mass ratio] 11.8 mg/mg 10-20 [facility] - Hematology and Cell countsOrdered By: Yobany Snell on 07-15-2023 MCH (RBC) [Entitic mass] 32.5 pg 27.0-32.0 [facility] MCHC (RBC) [Mass/Vol] 33.9 g/dL 32-36 [facility] Nucleated RBC/100 WBC (Bld) [Ratio] 0 % 0-5 [facility] Platelet mean volume (Bld) [Entitic vol] 9.2 fL 6.2-12.0 [facility] Platelets (Bld) [#/Vol] 429 10*3/uL 150-450 [facility] No Panel InformationOrdered By: Yobany Snell on 07-15-2023 Estimated GFR (MDRD) Amer 64 mL/min >60 [facility] Comment on above: GFR Calc Estimated GFR (MDRD) Non-Af Amer 53 mL/min >60 [facility] Comment on above: Non- GFR Calc VLDL Cholesterol 26 mg/dL 5-40 [facility] RBC Auto (Bld) [#/Vol]Ordere d By: Yobany Snell on 07-15-2023 RBC (Bld) [#/Vol] 4.24 10*6/uL 4.2-5.4 [facility] Serum or plasma calcium chace urement (mass/volume)Ordered By: Yobany Snell on 07-15-2023 Calcium [Mass/Vol] 9.5 mg/dL 8.5-10.1 [facility] Serum or plasma creatinine m easurement (mass/volume)Ordered By: Yobany Snell on 07-15-2023 Creatinine [Mass/Vol] 1.10 mg/dL 0.55-1.02 [facility] Comment on above: The validity of the calculated GFR & GFRAA in patients over 70 years has not been determined. Clinical correlation is essential. Serum or plasma thyroid stim ulating hormone (TSH) measurement (units/volume)Ordered By: Yobany Snell on 07-15-2023 TSH Qn 1.41 uIU/mL 0.358-3.74 [facility] Serum or plasma urea nitroge n measurement (mass/volume)Ordered By: Yobany Snell on 07-15-2023 Urea nitrogen [Mass/Vol] 13 mg/dL 7-18 [facility] Thin prep Papanicolaou smear with manual screeningOrdered By: Yobany Snell on 07-15-2023 Thin prep Papanicolaou smear with manual screening 4.0 g/dL 3.2-5.0 [facility] Thin prep Papanicolaou smear with manual screening 15 U/L 15-37 [facility] Thin prep Papanicolaou smear with manual screening 6 5-15 [facility] No Panel InformationOrdered By: Yobany Snell on 06-24-2023 Miscellaneous Test See comment [facility] Comment on above: TEST RESULTS LIMITSB [...] (1,2).Additionally, studies have demonstrated that a CSF joul-pejulde1-04/1-40 ratio is a better predictor for diagnosing AD than betaamyloid 1-42 levels alone (3). This assay should be used as an adjunct to neurologic evaluation, including diagnostic imaging, cognitive performance scales and other biomarkers of AD.The performance of the [facility] beta-amyloid 42/40 ratio test on the [employer] platform (cutoff = 0.058; sensitivity, specificity, PPV, [...] beta-amyloid ratio (1-42/1-40). Alzheimer's Dementia: 16 (Suppl.4): [id number]. Presented at the Alzheimer's Association International Conference 2020, virtual meeting.2. Vesna Bray, Shi J, Kerwin L, et al. Agreement of amyloid PET and CSF biomarkers for Alzheimer's disease on Lumipulse. Annals of Clinical and Translational Neurology 2019; 6(9): 7421-4983.3. Tom Machuca, Manny S, Carroll M, Tracey H and Mateus P. Advantages and disadvantages of the use of the CSF Amyloid beta (A beta) 42/40 ratio in the diagnosis of Alzheimer's Disease. Alz Res / Ther (2019) 11:34.This test was developed and its performance characteristicsdetermined by [facility]. It has not been cleared or approvedby the Food and Drug Administration. TESTING PERFORMED AT [facility]. ORIGINAL REPORT ON FILE IN LAB CONTAINS ADDITIONAL TEST SITE INFORMATION. Basophil percentageOrdered B y: Yobany Snell on 05-03-2023 Chloride [Moles/Vol] 99 mmol/L 98-107 [facility] Glucose [Mass/Vol] 101 mg/dL 74-106 [facility] Comment on above: Fasting Glucose resu lt from 100 to 125 mg/dL suggests IMPAIRED HOMEOSTASIS per A.D.A. criteria. Potassium [Moles/Vol] 3.6 mmol/L 3.5-5.1 [facility] Sodium [Moles/Vol] 135 mmol/L 136-145 [facility] - Chemistry and C hemistry - challengeOrdered By: Yobany Snell on 05-03-2023 CO2 [Moles/Vol] 29.0 mmol/L 21.0-32.0 [facility] Sodium (U) [Moles/Vol] 32 mmol/L Not Establ. [facility] Urea nitrogen/Creatinine [Mass ratio] 6.4 mg/mg 10-20 [facility] No Panel InformationOrdered By: Yobany Snell on 05-03-2023 Estimated GFR (MDRD) Amer 65 mL/min >60 [facility] Comment on above: GFR Calc Estimated GFR (MDRD) Non-Af Amer 54 mL/min >60 [facility] Comment on above: Non- GFR Calc Serum or plasma calcium chace urement (mass/volume)Ordered By: Yobany Snell on 05-03-2023 Calcium [Mass/Vol] 9.0 mg/dL 8.5-10.1 [facility] Serum or plasma creatinine m easurement (mass/volume)Ordered By: Yobany Snell on 05-03-2023 Creatinine [Mass/Vol] 1.09 mg/dL 0.55-1.02 [facility] Comment on above: The validity of the calculated GFR & GFRAA in patients over 70 years has not been determined. Clinical correlation is essential. Serum or plasma urea nitroge n measurement (mass/volume)Ordered By: Yobany Snell on 05-03-2023 Urea nitrogen [Mass/Vol] 7 mg/dL 7-18 [facility] Thin prep Papanicolaou smear with manual screeningOrdered By: Yobany Snell on 05-03-2023 Thin prep Papanicolaou smear with manual screening 7 5-15 [facility] Thin prep Papanicolaou smear with manual screening 280 mOsm/KG 280-301 [facility] Urine osmolality measurement Ordered By: Yobany Snell on 05-03-2023 Osmolality (U) [Osmolality] 106 mOsm/KG >50 [facility] Comment on above: Normal Urine Referen ce Ranges Random: 50 - 1200 mOsm/kg H20 depending on fluid intake Random: >850 mOsm/kg after 12 hour fluid restriction 24 hour: ~300 - 900 mOsm/kg H2O Absolute lymphocyte countOrd ered By: Zi San on 04-25-2023 Lymphocytes Auto (Unsp spec) [#/Vol] 2.19 10*3/uL 0.83-4.51 [facility] Basophil percentageOrdered B y: Zi San on 04-25-2023 Basophils/100 WBC (Bld) 0.9 % 0-1 [facility] Chloride [Moles/Vol] 93 mmol/L 98-107 [facility] Eosinophils/100 WBC (Bld) 1.7 % 0-5 [facility] Glucose [Mass/Vol] 120 mg/dL 74-106 [facility] Comment on above: Fasting Glucose resu lt from 100 to 125 mg/dL suggests IMPAIRED HOMEOSTASIS per A.D.A. criteria. Neutrophils (Bld) [#/Vol] 4.7 10*3/uL 2.0-7.7 [facility] Neutrophils/100 WBC (Bld) 61.2 % 47-70 [facility] Potassium [Moles/Vol] 3.5 mmol/L 3.5-5.1 [facility] Sodium [Moles/Vol] 127 mmol/L 136-145 [facility] WBC (Bld) [#/Vol] 7.6 10*3/uL 4.4-11.0 [facility] Blood erythrocytes count (nu mber/volume)Ordered By: Zi San on 04-25-2023 RBC (Bld) [#/Vol] 4.32 10*6/uL 4.2-5.4 [facility] Blood hemoglobin measurement (mass/volume)Ordered By: Zi San on 04-25-2023 Hemoglobin (Bld) [Mass/Vol] 14.0 g/dL 12.0-15.0 [facility] Blood lymphocytes/100 leukoc ytesOrdered By: Zi San on 04-25-2023 Lymphocytes/100 WBC (Bld) 28.7 % 19-41 [facility] Blood monocytes/100 leukocyt esOrdered By: Zi San on 04-25-2023 Monocytes/100 WBC (Bld) 7.2 % 0-10 [facility] Blood platelet mean volumeOr dered By: Zi San on 04-25-2023 Platelet mean volume (Bld) [Entitic vol] 8.7 fL 6.2-12.0 [facility] Determination of erythrocyte mean corpuscular volume (MCV)Ordered By: Zi San on 04-25-2023 MCV (RBC) [Entitic vol] 97.2 fL 81-99 [facility] Hematocrit Auto (Bld) [Volum e fraction]Ordered By: Zi San on 04-25-2023 Hematocrit (Bld) [Volume fraction] 42.0 % 37-47 [facility] - Chemistry and C hemistry - challengeOrdered By: Zi San on 04-25-2023 CO2 [Moles/Vol] 28.0 mmol/L 21.0-32.0 [facility] Urea nitrogen/Creatinine [Mass ratio] 5.0 mg/mg 10-20 [facility] - Hematology and Cell countsOrdered By: Zi San on 04-25-2023 Erythrocyte distribution width (RBC) [Entitic vol] 43.5 fL 35.1-43.9 [facility] Erythrocyte distribution width (RBC) [Ratio] 12.0 % 11.6-14.6 [facility] Immature granulocytes/100 WBC (Bld) 0.300 % 0.0-0.9 [facility] Comment on above: IG% - Immature Granu locytes (promyelocytes, myelocytes and metamyelocytes) > 1% indicates that a LEFT SHIFT is Present. MCH (RBC) [Entitic mass] 32.4 pg 27.0-32.0 [facility] Nucleated RBC/100 WBC (Bld) [Ratio] 0 % 0-5 [facility] MCHC Auto (RBC) [Mass/Vol]Or dered By: Zi San on 04-25-2023 MCHC (RBC) [Mass/Vol] 33.3 g/dL 32-36 [facility] No Panel InformationOrdered By: Zi San on 04-25-2023 Estimated Creatinine Clearance Calc 52.68 ml/min [facility] Estimated GFR (MDRD) Amer 71 mL/min >60 [facility] Comment on above: GFR Calc Estimated GFR (MDRD) Non-Af Amer 59 mL/min >60 [facility] Comment on above: Non- GFR Calc Platelets bldOrdered By: Thee San on 04-25-2023 Platelets (Bld) [#/Vol] 415 10*3/uL 150-450 [facility] Serum or plasma calcium chace urement (mass/volume)Ordered By: Zi San on 04-25-2023 Calcium [Mass/Vol] 9.3 mg/dL 8.5-10.1 [facility] Serum or plasma creatinine m easurement (mass/volume)Ordered By: Zi San on 04-25-2023 Creatinine [Mass/Vol] 1.01 mg/dL 0.55-1.02 [facility] Comment on above: The validity of the calculated GFR & GFRAA in patients over 70 years has not been determined. Clinical correlation is essential. Serum or plasma urea nitroge n measurement (mass/volume)Ordered By: Zi San on 04-25-2023 Urea nitrogen [Mass/Vol] 5 mg/dL 7-18 [facility] Thin prep Papanicolaou smear with manual screeningOrdered By: Zi San on 04-25-2023 Thin prep Papanicolaou smear with manual screening 6 5-15 [facility] Absolute lymphocyte countOrd ered By: Yobany Snell on 04-15-2023 Lymphocytes Auto (Unsp spec) [#/Vol] 1.79 10*3/uL 0.83-4.51 [facility] Basophil percentageOrdered B y: Yobany Snell on 04-15-2023 Basophils/100 WBC (Bld) 1.3 % 0-1 [facility] Bilirubin [Mass/Vol] 0.40 mg/dL 0.20-1.00 [facility] Comment on above: For patients on eltr ombopag therapy, use of Dimension Flomot TBIL is not recommended. Chloride [Moles/Vol] 97 mmol/L 98-107 [facility] Cholesterol [Mass/Vol] 277 mg/dL <200 [facility] Comment on above: <200 mg/dL Desirable 200-240 mg/dL Borderline >240 mg/dL High Risk Eosinophils/100 WBC (Bld) 1.6 % 0-5 [facility] Glucose [Mass/Vol] 122 mg/dL 74-106 [facility] Comment on above: Fasting Glucose resu lt from 100 to 125 mg/dL suggests IMPAIRED HOMEOSTASIS per A.D.A. criteria. Neutrophils (Bld) [#/Vol] 6.2 10*3/uL 2.0-7.7 [facility] Neutrophils/100 WBC (Bld) 70.7 % 47-70 [facility] Potassium [Moles/Vol] 3.8 mmol/L 3.5-5.1 [facility] Protein [Mass/Vol] 8.0 g/dL 6.4-8.2 [facility] Sodium [Moles/Vol] 132 mmol/L 136-145 [facility] Triglyceride [Mass/Vol] 174 mg/dL <199 [facility] Comment on above: The drugs N-Acetylcy steine and Metamizole may falsely depress this assay.Serum Triglycerides Reference Interval Normal <150 mg/dL Borderline high 150 - 199 mg/dL High 200 - 499 mg/dL Very High > or = 500 mg/dL WBC (Bld) [#/Vol] 8.7 10*3/uL 4.4-11.0 [facility] Blood erythrocytes count (nu mber/volume)Ordered By: Yobany Snell on 04-15-2023 RBC (Bld) [#/Vol] 4.40 10*6/uL 4.2-5.4 [facility] Blood hemoglobin measurement (mass/volume)Ordered By: Yobany Snell on 04-15-2023 Hemoglobin (Bld) [Mass/Vol] 14.3 g/dL 12.0-15.0 [facility] Blood lymphocytes/100 leukoc ytesOrdered By: [facility] on 04-15-2023 Lymphocytes/100 WBC (Bld) 20.5 % 19-41 [facility] Blood monocytes/100 leukocyt esOrdered By: [facility] on 04-15-2023 Monocytes/100 WBC (Bld) 5.6 % 0-10 [facility] Blood platelet mean volumeOr dered By: [facility] on 04-15-2023 Platelet mean volume (Bld) [Entitic vol] 9.2 fL 6.2-12.0 [facility] Determination of erythrocyte mean corpuscular volume (MCV)Ordered By: [facility] on 04-15-2023 MCV (RBC) [Entitic vol] 98.2 fL 81-99 [facility] Hematocrit Auto (Bld) [Volum e fraction]Ordered By: [facility] on 04-15-2023 Hematocrit (Bld) [Volume fraction] 43.2 % 37-47 [facility] - Chemistry and C hemistry - challengeOrdered By: [facility] on 04-15-2023 ALP [Catalytic activity/Vol] 89 U/L 45-117 [facility] ALT [Catalytic activity/Vol] 21 U/L 13-56 [facility] CO2 [Moles/Vol] 27.0 mmol/L 21.0-32.0 [facility] Globulin (S) [Mass/Vol] 3.8 g/dL 2.2-4.2 [facility] Urea nitrogen/Creatinine [Mass ratio] 7.3 mg/mg 10-20 [facility] - Hematology and Cell countsOrdered By: [facility] on 04-15-2023 Erythrocyte distribution width (RBC) [Entitic vol] 45.5 fL 35.1-43.9 [facility] Erythrocyte distribution width (RBC) [Ratio] 12.7 % 11.6-14.6 [facility] Immature granulocytes/100 WBC (Bld) 0.300 % 0.0-0.9 [facility] Comment on above: IG% - Immature Granu locytes (promyelocytes, myelocytes and metamyelocytes) > 1% indicates that a LEFT SHIFT is Present. MCH (RBC) [Entitic mass] 32.5 pg 27.0-32.0 [facility] Nucleated RBC/100 WBC (Bld) [Ratio] 0 % 0-5 [facility] MCHC Auto (RBC) [Mass/Vol]Or dered By: Yobany Snell on 04-15-2023 MCHC (RBC) [Mass/Vol] 33.1 g/dL 32-36 [facility] No Panel InformationOrdered By: Yobany Snell on 04-15-2023 Estimated GFR (MDRD) Amer 56 mL/min >60 [facility] Comment on above: GFR Calc Estimated GFR (MDRD) Non-Af Amer 46 mL/min >60 [facility] Comment on above: Non- GFR Calc Miscellaneous Test See comment [facility] Comment on above: TEST RESULTS LIMITSA NBA Alzheimer's RiskMethodology: Patient DNA is assayed for the APOE genotype by PCRamplification of a specific region in exon 4 of the APOEgene followed by digestion with restriction enzyme Folder Stitcher Operator Iand separation of fragments by polyacrylamide gelelectrophoresis. This approach allows the APOE E2, E3, andE4 alleles to be distinguished. Analytical sensitivity andspecificity are >99.5%. Individuals are interpreted ashaving one of the following genotypes: E2/E2, E3/E3, E4/E4,E2/E3, E2/E4, E3/E4.APO E Genotyping Result: E3/[id number]: Negative for the APOE4 variant that is [...] analysis.For inquiries or genetic consultation, please call [facility] .Comment: INFORMATION ABOUT THE APOE GENOTYPE AND ALZHEIMER'S DISEASEAlzheimer's disease (AD) is the most common form ofdementia in the elderly and currently affects more than 5million Americans. It is a progressive neurodegenerativedisorder with brain findings of plaques and neurofibrillarytangles containing beta-amyloid and tau proteinrespectively.The predominant form of AD is late onset (age > 60-65),which can be familial (15-20%) or sporadic. The [id number] increases the risk for late onset AD and maycontribute to the pathology of the disease. This risk isincreased by approximately 2 to 3-fold for individuals withone copy of the APOE4 variant and by approximately [id number] for individuals with two copies of this [...] with late onset AD, the presence of [id number] lead to earlier development of symptoms.However, APOE4 [...] was developed and its performance characteristicsdetermined by [employer]. It has not been cleared or approvedby the Food and Drug Administration. The FDA has determinedthat such clearance or approval is not necessary.REFERENCESAlálvaro Valladares et al. Sex modifies the APOE-related risk ofdeveloping Alzheimer disease. Annal Pybgru3481;75(4):563-573Bird TD. Alzheimer Disease Overview. Nellyeviedinesh(internet). Miracle PFEIFFER et al., editors. [facility], [place], [place]. Last revised 2014.Berna SWENSON et al. Genetic counseling and testing forAlzheimer disease: Joint practice guidelines of the[place] College of Medical Genetics and the [facility] of Genetic Counselors. Sherie in Hls1063;13(8)59-601.Casi BOSS. Apolipoprotein E: Implications for ADneurobiology, epidemiology and risk assessment.Neurobiology of Aging 2011;32:778-790. [facility] ORIGINAL REPORT ON FILE IN LAB CONTAINS ADDITIONAL TEST SITE INFORMATION. Thyroid Stimulating Hormone (TSH) 2.01 uIU/mL 0.358-3.74 [facility] Vitamin D 25-Hydroxy 29.8 ng/mL [facility] Comment on above: Vitamin D 25(OH) Sta tus Range Deficiency <20 ng/mL (50nmol/L) Insufficiency 20 - 30 ng/mL (50 - 75 nmol/L) Sufficiency 30 - 100 ng/mL (75 - 250 nmol/L) Toxicity >100 ng/mL (>250 nmol/L) Platelets bldOrdered By: Yobany Snell on 04-15-2023 Platelets (Bld) [#/Vol] 477 10*3/uL 150-450 [facility] Serum or plasma albumin chace urement (mass/volume)Ordered By: Yobany Snell on 04-15-2023 Albumin [Mass/Vol] 4.2 g/dL 3.2-5.0 [facility] Serum or plasma albumin/glob ulin mass ratioOrdered By: Yobany Snell on 04-15-2023 Albumin/Globulin [Mass ratio] 1.1 {ratio} 0.9-2.4 [facility] Serum or plasma calcium chace urement (mass/volume)Ordered By: Yobany Snell 04-15-2023 Calcium [Mass/Vol] 9.1 mg/dL 8.5-10.1 [facility] Serum or plasma cholesterol in HDL measurement (mass/volume)Ordered By: Yobany Snell on 04-15-2023 Cholesterol in HDL [Mass/Vol] 55 mg/dL >40 [facility] Comment on above: The drugs N-Acetylcy steine and Metamizole may falsely depress this assay. Reference Range HDL <40 mg/dL Low HDL Cholesterol HDL >or= 60 mg/dL High HDL Cholesterol Serum or plasma cholesterol in VLDL measurement (mass/volume)Ordered By: Yobany Snell 04-15-2023 Cholesterol in VLDL [Mass/Vol] 35 mg/dL 5-40 [facility] Serum or plasma creatinine m easurement (mass/volume)Ordered By: Yobany Snell 04-15-2023 Creatinine [Mass/Vol] 1.24 mg/dL 0.55-1.02 [facility] Comment on above: The validity of the calculated GFR & GFRAA in patients over 70 years has not been determined. Clinical correlation is essential. Serum or plasma low density lipoprotein (LDL) cholesterol measurement (mass/volume)Ordered By: Yobany Snell 04-15-2023 Cholesterol in LDL [Mass/Vol] 187 mg/dL 0-130 [facility] Serum or plasma urea nitroge n measurement (mass/volume)Ordered By: Yobany Snell 04-15-2023 Urea nitrogen [Mass/Vol] 9 mg/dL 7-18 [facility] Thin prep Papanicolaou smear with manual screeningOrdered By: Yobany Snell 04-15-2023 Thin prep Papanicolaou smear with manual screening 12 U/L 15-37 [facility] Thin prep Papanicolaou smear with manual screening 8 5-15 [facility] Laboratory - Microbiology an d Antimicrobial susceptibilityOrdered By: Yobany Snell on 04-01-2023 SARS-CoV-2 (COVID-19) RNA CORAL+probe Ql (Unsp spec) [facility] No Panel InformationOrdered By: Yobany Snell on 04-01-2023 Influenza Types A,B Direct FA (RK) [facility] RSV Ag EIAOrdered By: Yobany Silva steven on 04-01-2023 RSV Ag Immune stain Ql (Tiss) [facility] Absolute lymphocyte countOrd ered By: Yobany Snell on 01-07-2023 Lymphocytes Auto (Unsp spec) [#/Vol] 2.31 10*3/uL 0.83-4.51 [facility] Basophil percentageOrdered B y: Yobany Snell on 01-07-2023 Basophils/100 WBC (Bld) 0.9 % 0-1 [facility] Bilirubin [Mass/Vol] 0.30 mg/dL 0.20-1.00 [facility] Comment on above: For patients on eltr ombopag therapy, use of Dimension Flomot TBIL is not recommended. Chloride [Moles/Vol] 102 mmol/L 98-107 [facility] Cholesterol [Mass/Vol] 227 mg/dL <200 [facility] Comment on above: <200 mg/dL Desirable 200-240 mg/dL Borderline >240 mg/dL High Risk Eosinophils/100 WBC (Bld) 2.6 % 0-5 [facility] Glucose [Mass/Vol] 102 mg/dL 74-106 [facility] Comment on above: Fasting Glucose resu lt from 100 to 125 mg/dL suggests IMPAIRED HOMEOSTASIS per A.D.A. criteria. Neutrophils (Bld) [#/Vol] 5.0 10*3/uL 2.0-7.7 [facility] Neutrophils/100 WBC (Bld) 61.4 % 47-70 [facility] Potassium [Moles/Vol] 4.2 mmol/L 3.5-5.1 [facility] Protein [Mass/Vol] 7.5 g/dL 6.4-8.2 [facility] Sodium [Moles/Vol] 137 mmol/L 136-145 [facility] Triglyceride [Mass/Vol] 153 mg/dL <199 [facility] Comment on above: The drugs N-Acetylcy steine and Metamizole may falsely depress this assay.Serum Triglycerides Reference Interval Normal <150 mg/dL Borderline high 150 - 199 mg/dL High 200 - 499 mg/dL Very High > or = 500 mg/dL WBC (Bld) [#/Vol] 8.1 10*3/uL 4.4-11.0 [facility] Blood erythrocytes count (nu mber/volume)Ordered By: Yobany Silvaok on 01-07-2023 RBC (Bld) [#/Vol] 4.11 10*6/uL 4.2-5.4 [facility] Blood hemoglobin measurement (mass/volume)Ordered By: [facility] on 01-07-2023 Hemoglobin (Bld) [Mass/Vol] 13.8 g/dL 12.0-15.0 [facility] Blood lymphocytes/100 leukoc ytesOrdered By: [facility] on 01-07-2023 Lymphocytes/100 WBC (Bld) 28.7 % 19-41 [facility] Blood monocytes/100 leukocyt esOrdered By: [facility] on 01-07-2023 Monocytes/100 WBC (Bld) 6.0 % 0-10 [facility] Blood platelet mean volumeOr dered By: [facility] on 01-07-2023 Platelet mean volume (Bld) [Entitic vol] 9.7 fL 6.2-12.0 [facility] Determination of erythrocyte mean corpuscular volume (MCV)Ordered By: Yobany Channing on 01-07-2023 MCV (RBC) [Entitic vol] 102.7 fL 81-99 [facility] Hematocrit Auto (Bld) [Volum e fraction]Ordered By: [facility] on 01-07-2023 Hematocrit (Bld) [Volume fraction] 42.2 % 37-47 [facility] Laboratory - Chemistry and C hemistry - challengeOrdered By: [facility] on 01-07-2023 ALP [Catalytic activity/Vol] 110 U/L 45-117 [facility] ALT [Catalytic activity/Vol] 17 U/L 13-56 [facility] CO2 [Moles/Vol] 28.0 mmol/L 21.0-32.0 [facility] Globulin (S) [Mass/Vol] 3.6 g/dL 2.2-4.2 [facility] Urea nitrogen/Creatinine [Mass ratio] 11.6 mg/mg 10-20 [facility] Laboratory - Hematology and Cell countsOrdered By: Yobany Snell on 01-07-2023 Erythrocyte distribution width (RBC) [Entitic vol] 48.0 fL 35.1-43.9 [facility] Erythrocyte distribution width (RBC) [Ratio] 12.6 % 11.6-14.6 [facility] Immature granulocytes/100 WBC (Bld) 0.400 % 0.0-0.9 [facility] Comment on above: IG% - Immature Granu locytes (promyelocytes, myelocytes and metamyelocytes) > 1% indicates that a LEFT SHIFT is Present. MCH (RBC) [Entitic mass] 33.6 pg 27.0-32.0 [facility] Nucleated RBC/100 WBC (Bld) [Ratio] 0 % 0-5 [facility] MCHC Auto (RBC) [Mass/Vol]Or dered By: Yobany Snell on 01-07-2023 MCHC (RBC) [Mass/Vol] 32.7 g/dL 32-36 [facility] No Panel InformationOrdered By: Yobany Snell on 01-07-2023 Estimated GFR (MDRD) Amer 63 mL/min >60 [facility] Comment on above: GFR Calc Estimated GFR (MDRD) Non-Af Amer 52 mL/min >60 [facility] Comment on above: Non- GFR Calc Thyroid Stimulating Hormone (TSH) 1.09 uIU/mL 0.358-3.74 [facility] Platelets bldOrdered By: Yobany Snell on 01-07-2023 Platelets (Bld) [#/Vol] 458 10*3/uL 150-450 [facility] Serum or plasma albumin chace urement (mass/volume)Ordered By: Yobany Snell on 01-07-2023 Albumin [Mass/Vol] 3.9 g/dL 3.2-5.0 [facility] Serum or plasma albumin/glob ulin mass ratioOrdered By: Yobany Snell on 01-07-2023 Albumin/Globulin [Mass ratio] 1.1 {ratio} 0.9-2.4 [facility] Serum or plasma calcium chace urement (mass/volume)Ordered By: Yobany Snell on 01-07-2023 Calcium [Mass/Vol] 9.2 mg/dL 8.5-10.1 [facility] Serum or plasma cholesterol in HDL measurement (mass/volume)Ordered By: Yobany Channing on 01-07-2023 Cholesterol in HDL [Mass/Vol] 49 mg/dL >40 [facility] Comment on above: The drugs N-Acetylcy steine and Metamizole may falsely depress this assay. Reference Range HDL <40 mg/dL Low HDL Cholesterol HDL >or= 60 mg/dL High HDL Cholesterol Serum or plasma cholesterol in VLDL measurement (mass/volume)Ordered By: Yobany Channing on 01-07-2023 Cholesterol in VLDL [Mass/Vol] 31 mg/dL 5-40 [facility] Serum or plasma creatinine m easurement (mass/volume)Ordered By: Yobany Snell 01-07-2023 Creatinine [Mass/Vol] 1.12 mg/dL 0.55-1.02 [facility] Comment on above: The validity of the calculated GFR & GFRAA in patients over 70 years has not been determined. Clinical correlation is essential. Serum or plasma low density lipoprotein (LDL) cholesterol measurement (mass/volume)Ordered By: Yobany Channing 01-07-2023 Cholesterol in LDL [Mass/Vol] 147 mg/dL 0-130 [facility] Serum or plasma urea nitroge n measurement (mass/volume)Ordered By: Yobany Channing 01-07-2023 Urea nitrogen [Mass/Vol] 13 mg/dL 7-18 [facility] Thin prep Papanicolaou smear with manual screeningOrdered By: Yobany Snell 01-07-2023 Thin prep Papanicolaou smear with manual screening 13 U/L 15-37 [facility] Thin prep Papanicolaou smear with manual screening 7 5-15 [facility] CNPNon 11-05-2022 DONATON Telephone (ANDRES) -- NAVIN AUGUST ([id number]) 1960 F Date Time Provider Department 11/05/22 [...] * HEADACHE [R51] MYALGIA AND MYOSITIS NOS [[id number]] Abnormal Weight Gain [R63.5] 05/19/2007 01/15/2010 PERS [...] [M47.816] 08/18/2017 Sacroiliitis (HCC) [M46.1] 08/18/2017 Other fpc (current) drug therapy [Z79.899]11/21/2018 Knee pain [M25.569] 05/24/2019 Fibromyalgia [M79.7] 08/18/2017 Asthma [J45.909] 10/13/2019 Encounter Status:Closed by NEFTALY COKER on 11/05/22 [facility] [place] 10-27-2022 DONATON Telephone (PAMMJK) -- NAVIN AUGUST ([id number]) 1960 F Date Time Provider Department 10/27/22 [...] * HEADACHE [R51] MYALGIA AND MYOSITIS NOS [[id number]] Abnormal Weight Gain [R63.5] 05/19/2007 01/15/2010 PERS [...] [M47.816] 08/18/2017 Sacroiliitis (HCC) [M46.1] 08/18/2017 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 CLONIDINE HCL 0.1 MG TABLET 14 t* 0 10/27/2022 11/03/2022 Cmt: [facility] [id number] Route: ORAL Sig: Take 1 tablet by mouth twice daily for 7 days. Take for symptoms of opiate withdrawal Medications Discontinued During This Encounter Prescriptions - cloNIDine HCl (CATAPRES) 0.1 mg tablet (Discont (more content not included)... [facility] CNOVon 09-11-2022 CNOV Office Visit (PAMMJK ) -- NAVIN AUGUST ([id number]) 1960 F Date Time Provider Department 09/11/22 2:00 PM NELSY CHAUDHARI During your visit today, we recorded the following information about you: Temperature Pulse Respiration Blood pressure 97.4 degrees 93/minute 18/minute 141/96 Nelsy Chaudhari PA-C 09/11/2022 2:24 PM Signed This note was created using [id number]. Subjective Navin August is a 62 year [...] this. Continue using (more content not included)... 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 term care phlebotomist (current) drug therapy [Z79.899]11/21/2018 Knee pain [M25.569] 05/24/2019 Fibromyalgia [M79.7] 08/18/2017 Asthma [J45.909] 10/13/2019 -- Questionnaire: AG SPINE PAIN PILL COUNT MEDICATION NAME -> fentanyl STRENGTH -> 50 Cmt: mg LAST FILL DATE -> 07/19/2022 QUANTITY FILLED -> 15 QUANTITY REMAINING -> 10 COMMENTS -> appropriate count Encounter Status:Closed by LILIANA GRAHAM on 07/28/22 [facility] [place] 07-23-2022 CNPN Telephone (ANDRES) -- NAVIN AUGUST ([id number]) 1960 F Date Time Provider Department 07/23/22 [...] * HEADACHE [R51] MYALGIA AND MYOSITIS NOS [[id number]] Abnormal Weight Gain [R63.5] 05/19/2007 01/15/2010 PERS [...] [M47.816] 08/18/2017 Sacroiliitis (HCC) [M46.1] 08/18/2017 Other fpc (current) drug therapy [Z79.899]11/21/2018 Knee pain [M25.569] 05/24/2019 Fibromyalgia [M79.7] 08/18/2017 Asthma [J45.909] 10/13/2019 Encounter Status:Closed by LILIANA GRAHAM on 07/23/22 [facility] Laboratory - Microbiology an d Antimicrobial susceptibilityOrdered By: Dr. Snell on 06-16-2022 SARS-CoV-2 (COVID-19) RNA CORAL+probe Ql (Unsp spec) Detected Not Detect [facility] Comment on above: Normal Reference Ran ge: [...] 06-16-2022 Influenza Types A,B Direct FA (RK) [facility] RSV Ag EIAOrdered By: Dr. Ricardo harris on 06-16-2022 RSV Ag Immune stain Ql (Tiss) [facility] Absolute lymphocyte countOrd ered By: Dr. Snell on 06-15-2022 Lymphocytes Auto (Unsp spec) [#/Vol] 2.02 10*3/uL 0.83-4.51 [facility] Basophil percentageOrdered B y: Dr. Snell on 06-15-2022 Basophils/100 WBC (Bld) 0.9 % 0-1 [facility] Bilirubin [Mass/Vol] 0.40 mg/dL 0.20-1.00 [facility] Comment on above: For patients on eltr ombopag therapy, use of Dimension Flomot TBIL is not recommended. Chloride [Moles/Vol] 96 mmol/L 98-107 [facility] Eosinophils/100 WBC (Bld) 2.5 % 0-5 [facility] Glucose [Mass/Vol] 101 mg/dL 74-106 [facility] Comment on above: Fasting Glucose resu lt from 100 to 125 mg/dL suggests IMPAIRED HOMEOSTASIS per A.D.A. criteria. Neutrophils (Bld) [#/Vol] 5.1 10*3/uL 2.0-7.7 [facility] Neutrophils/100 WBC (Bld) 63.9 % 47-70 [facility] Potassium [Moles/Vol] 3.9 mmol/L 3.5-5.1 [facility] Protein [Mass/Vol] 7.9 g/dL 6.4-8.2 [facility] Sodium [Moles/Vol] 133 mmol/L 136-145 [facility] WBC (Bld) [#/Vol] 8.0 10*3/uL 4.4-11.0 [facility] Blood erythrocytes count (nu mber/volume)Ordered By: Dr. Snell on 06-15-2022 RBC (Bld) [#/Vol] 4.41 10*6/uL 4.2-5.4 [facility] Blood hemoglobin measurement (mass/volume)Ordered By: Dr. Snell on 06-15-2022 Hemoglobin (Bld) [Mass/Vol] 14.4 g/dL 12.0-15.0 [facility] Blood lymphocytes/100 leukoc ytesOrdered By: Dr. Snell on 06-15-2022 Lymphocytes/100 WBC (Bld) 25.4 % 19-41 [facility] Blood monocytes/100 leukocyt esOrdered By: Dr. Snell on 06-15-2022 Monocytes/100 WBC (Bld) 7.0 % 0-10 [facility] Blood platelet mean volumeOr dered By: Dr. Snell on 06-15-2022 Platelet mean volume (Bld) [Entitic vol] 10.0 fL 6.2-12.0 [facility] Determination of erythrocyte mean corpuscular volume (MCV)Ordered By: Dr. Snell on 06-15-2022 MCV (RBC) [Entitic vol] 93.0 fL 81-99 [facility] Hematocrit Auto (Bld) [Volum e fraction]Ordered By: Dr. Snell on 06-15-2022 Hematocrit (Bld) [Volume fraction] 41.0 % 37-47 [facility] Laboratory - Chemistry and C hemistry - challengeOrdered By: Dr. Snell on 06-15-2022 ALP [Catalytic activity/Vol] 83 U/L 45-117 [facility] ALT [Catalytic activity/Vol] 19 U/L 13-56 [facility] CO2 [Moles/Vol] 28.0 mmol/L 21.0-32.0 [facility] Globulin (S) [Mass/Vol] 3.6 g/dL 2.2-4.2 [facility] Urea nitrogen/Creatinine [Mass ratio] 11.5 mg/mg 10-20 [facility] Laboratory - Hematology and Cell countsOrdered By: Dr. Snell on 06-15-2022 Erythrocyte distribution width (RBC) [Entitic vol] 43.8 fL 35.1-43.9 [facility] Erythrocyte distribution width (RBC) [Ratio] 12.7 % 11.6-14.6 [facility] Immature granulocytes/100 WBC (Bld) 0.300 % 0.0-0.9 [facility] Comment on above: IG% - Immature Granu locytes (promyelocytes, myelocytes and metamyelocytes) > 1% indicates that a LEFT SHIFT is Present. MCH (RBC) [Entitic mass] 32.7 pg 27.0-32.0 [facility] Nucleated RBC/100 WBC (Bld) [Ratio] 0 % 0-5 [facility] MCHC Auto (RBC) [Mass/Vol]Or dered By: Dr. Snell on 06-15-2022 MCHC (RBC) [Mass/Vol] 35.1 g/dL 32-36 [facility] No Panel InformationOrdered By: Dr. Snell on 06-15-2022 Estimated GFR (MDRD) Amer 57 mL/min >60 [facility] Comment on above: GFR Calc Estimated GFR (MDRD) Non-Af Amer 47 mL/min >60 [facility] Comment on above: Non- GFR Calc Platelets bldOrdered By: Dr. Snell on 06-15-2022 Platelets (Bld) [#/Vol] 381 10*3/uL 150-450 [facility] Serum or plasma albumin chace urement (mass/volume)Ordered By: Dr. Snell on 06-15-2022 Albumin [Mass/Vol] 4.3 g/dL 3.2-5.0 [facility] Serum or plasma albumin/glob ulin mass ratioOrdered By: Dr. Snell on 06-15-2022 Albumin/Globulin [Mass ratio] 1.2 {ratio} 0.9-2.4 [facility] Serum or plasma calcium chace urement (mass/volume)Ordered By: Dr. Snell on 06-15-2022 Calcium [Mass/Vol] 9.5 mg/dL 8.5-10.1 [facility] Serum or plasma creatinine m easurement (mass/volume)Ordered By: Dr. Snell on 06-15-2022 Creatinine [Mass/Vol] 1.22 mg/dL 0.55-1.02 [facility] Comment on above: The validity of the calculated GFR & GFRAA in patients over 70 years has not been determined. Clinical correlation is essential. Serum or plasma urea nitroge n measurement (mass/volume)Ordered By: Dr. Snell on 06-15-2022 Urea nitrogen [Mass/Vol] 14 mg/dL 7-18 [facility] Thin prep Papanicolaou smear with manual screeningOrdered By: Dr. Snell on 06-15-2022 Thin prep Papanicolaou smear with manual screening 14 U/L 15-37 [facility] Thin prep Papanicolaou smear with manual screening 9 5-15 [facility] Absolute lymphocyte countOrd ered By: Dr. Snell on 04-07-2022 Lymphocytes Auto (Unsp spec) [#/Vol] 1.90 10*3/uL 0.83-4.51 [facility] Basophil percentageOrdered B y: Dr. Snell on 04-07-2022 Basophils/100 WBC (Bld) 0.6 % 0-1 [facility] Bilirubin [Mass/Vol] 0.20 mg/dL 0.20-1.00 [facility] Comment on above: For patients on eltr ombopag therapy, use of Dimension Flomot TBIL is not recommended. Chloride [Moles/Vol] 94 mmol/L 98-107 [facility] Cholesterol [Mass/Vol] 239 mg/dL <200 [facility] Comment on above: <200 mg/dL Desirable 200-240 mg/dL Borderline >240 mg/dL High Risk Eosinophils/100 WBC (Bld) 0.8 % 0-5 [facility] Glucose [Mass/Vol] 128 mg/dL 74-106 [facility] Comment on above: Fasting Glucose resu lt greater than or equal to 126 mg/dL suggests DIABETES MELLITUS per A.D.A. criteria. Neutrophils (Bld) [#/Vol] 8.3 10*3/uL 2.0-7.7 [facility] Neutrophils/100 WBC (Bld) 75.8 % 47-70 [facility] Potassium [Moles/Vol] 3.7 mmol/L 3.5-5.1 [facility] Protein [Mass/Vol] 7.3 g/dL 6.4-8.2 [facility] Sodium [Moles/Vol] 131 mmol/L 136-145 [facility] Triglyceride [Mass/Vol] 201 mg/dL <199 [facility] Comment on above: The drugs N-Acetylcy steine and Metamizole may falsely depress this assay.Serum Triglycerides Reference Interval Normal <150 mg/dL Borderline high 150 - 199 mg/dL High 200 - 499 mg/dL Very High > or = 500 mg/dL WBC (Bld) [#/Vol] 10.9 10*3/uL 4.4-11.0 [facility] Blood erythrocytes count (nu mber/volume)Ordered By: Dr. Snell on 04-07-2022 RBC (Bld) [#/Vol] 4.17 10*6/uL 4.2-5.4 [facility] Blood hemoglobin measurement (mass/volume)Ordered By: Dr. Snell on 04-07-2022 Hemoglobin (Bld) [Mass/Vol] 13.2 g/dL 12.0-15.0 [facility] Blood lymphocytes/100 leukoc ytesOrdered By: Dr. Snell on 04-07-2022 Lymphocytes/100 WBC (Bld) 17.4 % 19-41 [facility] Blood monocytes/100 leukocyt esOrdered By: Dr. Snell on 04-07-2022 Monocytes/100 WBC (Bld) 5.1 % 0-10 [facility] Blood platelet mean volumeOr dered By: Dr. Snell on 04-07-2022 Platelet mean volume (Bld) [Entitic vol] 9.6 fL 6.2-12.0 [facility] Determination of erythrocyte mean corpuscular volume (MCV)Ordered By: Dr. Snell on 04-07-2022 MCV (RBC) [Entitic vol] 95.0 fL 81-99 [facility] Hematocrit Auto (Bld) [Volum e fraction]Ordered By: Dr. Snell on 04-07-2022 Hematocrit (Bld) [Volume fraction] 39.6 % 37-47 [facility] Laboratory - Chemistry and C hemistry - challengeOrdered By: Dr. Snell on 04-07-2022 ALP [Catalytic activity/Vol] 84 U/L 45-117 [facility] ALT [Catalytic activity/Vol] 19 U/L 13-56 [facility] CO2 [Moles/Vol] 28.0 mmol/L 21.0-32.0 [facility] Globulin (S) [Mass/Vol] 3.3 g/dL 2.2-4.2 [facility] Urea nitrogen/Creatinine [Mass ratio] 17.8 mg/mg 10-20 [facility] Laboratory - Hematology and Cell countsOrdered By: Dr. Snell on 04-07-2022 Erythrocyte distribution width (RBC) [Entitic vol] 46.5 fL 35.1-43.9 [facility] Erythrocyte distribution width (RBC) [Ratio] 13.2 % 11.6-14.6 [facility] Immature granulocytes/100 WBC (Bld) 0.300 % 0.0-0.9 [facility] Comment on above: IG% - Immature Granu locytes (promyelocytes, myelocytes and metamyelocytes) > 1% indicates that a LEFT SHIFT is Present. MCH (RBC) [Entitic mass] 31.7 pg 27.0-32.0 [facility] Nucleated RBC/100 WBC (Bld) [Ratio] 0 % 0-5 [facility] MCHC Auto (RBC) [Mass/Vol]Or dered By: Dr. Snell on 04-07-2022 MCHC (RBC) [Mass/Vol] 33.3 g/dL 32-36 [facility] No Panel InformationOrdered By: Dr. Snell on 04-07-2022 Estimated GFR (MDRD) Amer 71 mL/min >60 [facility] Comment on above: GFR Calc Estimated GFR (MDRD) Non-Af Amer 59 mL/min >60 [facility] Comment on above: Non- GFR Calc Thyroid Stimulating Hormone (TSH) 0.60 uIU/mL 0.358-3.74 [facility] Vitamin D 25-Hydroxy 36.8 ng/mL [facility] Comment on above: Vitamin D 25(OH) Sta tus Range Deficiency <20 ng/mL (50nmol/L) Insufficiency 20 - 30 ng/mL (50 - 75 nmol/L) Sufficiency 30 - 100 ng/mL (75 - 250 nmol/L) Toxicity >100 ng/mL (>250 nmol/L) Platelets bldOrdered By: Dr. Snell on 04-07-2022 Platelets (Bld) [#/Vol] 422 10*3/uL 150-450 [facility] Serum or plasma albumin chace urement (mass/volume)Ordered By: Dr. Snell on 04-07-2022 Albumin [Mass/Vol] 4.0 g/dL 3.2-5.0 [facility] Serum or plasma albumin/glob ulin mass ratioOrdered By: Dr. Snell on 04-07-2022 Albumin/Globulin [Mass ratio] 1.2 {ratio} 0.9-2.4 [facility] Serum or plasma calcium chace urement (mass/volume)Ordered By: Dr. Snell on 04-07-2022 Calcium [Mass/Vol] 8.9 mg/dL 8.5-10.1 [facility] Serum or plasma cholesterol in HDL measurement (mass/volume)Ordered By: Dr. Snell on 04-07-2022 Cholesterol in HDL [Mass/Vol] 40 mg/dL >40 [facility] Comment on above: The drugs N-Acetylcy steine and Metamizole may falsely depress this assay. Reference Range HDL <40 mg/dL Low HDL Cholesterol HDL >or= 60 mg/dL High HDL Cholesterol Serum or plasma cholesterol in VLDL measurement (mass/volume)Ordered By: Dr. Snell on 04-07-2022 Cholesterol in VLDL [Mass/Vol] 40 mg/dL 5-40 [facility] Serum or plasma creatinine m easurement (mass/volume)Ordered By: Dr. Snell on 04-07-2022 Creatinine [Mass/Vol] 1.01 mg/dL 0.55-1.02 [facility] Comment on above: The validity of the calculated GFR & GFRAA in patients over 70 years has not been determined. Clinical correlation is essential. Serum or plasma low density lipoprotein (LDL) cholesterol measurement (mass/volume)Ordered By: Dr. Snell on 04-07-2022 Cholesterol in LDL [Mass/Vol] 159 mg/dL 0-130 [facility] Serum or plasma urea nitroge n measurement (mass/volume)Ordered By: Dr. Snell on 04-07-2022 Urea nitrogen [Mass/Vol] 18 mg/dL 7-18 [facility] Thin prep Papanicolaou smear with manual screeningOrdered By: Dr. Snell on 04-07-2022 Thin prep Papanicolaou smear with manual screening 14 U/L 15-37 [facility] Thin prep Papanicolaou smear with manual screening 9 5-15 [facility] CNOVon 03-23-2022 CNOV Office Visit (ANDRES ) -- NAVIN AUGUST ([id number]) 1960 F Date Time Provider Department 03/23/22 2:45 PM NELSY CHAUDHARI During your visit today, we recorded the following information about you: Temperature Pulse Respiration Blood pressure 97.7 degrees 86/minute 18/minute 145/68 Nelsy Chaudhari PA-C 03/23/2022 3:10 PM Signed This note was created using [employer]. Subjective Navin August is a 62 year [...] knee issues until (more content not included)... [facility] CNOVon 02-09-2022 CNOV Office Visit (ANDRES ) -- NAVIN AUGUST ([id number]) 1960 F Date Time Provider Department 02/09/22 2:45 PM NELSY CHAUDHARI During your visit today, we recorded the following information about you: Temperature Pulse Respiration Blood pressure 97.3 degrees 98/minute 18/minute 138/76 Nelsy Chaudhari PA-C 02/09/2022 3:27 PM Signed This note was created using [id number]. Subjective Navin August is a 61 year [...] unt (more content not included)... Normal [facility] CNOVon 12-29-2021 CN Office Visit (ANDRES ) -- NAVIN AUGUST ([id number]) 1960 F Date Time Provider Department 12/29/21 2:45 PM NEFTALY COKER During your visit today, we recorded the following information about you: Temperature Pulse Respiration Blood pressure 97.5 degrees 103/minute 20/minute 143/93 Weight Height 20.9 kg 1.499 m Neftaly Coker MD 12/30/2021 3:33 PM Signed This note was created using [employer]. Subjective Navin August is a 61 year [...] physically active, str (more content not included)... [facility] Chiquita 12-29-2021 DONATON Telephone (PAMMJK) -- NAVIN AUGUST ([id number]) 1960 F Date Time Provider Department 12/29/21 NEFTALY COKER During your visit today, we recorded the following information about you: Liliana Graham RN 12/30/2021 11:34 AM Signed OARRS checked prior to setting up fentanyl refill from office visit 12/29/21. Noted 2 fentanyl 50 mcg patches were filled from [facility] in [place] on 12/26/21. I spoke with Navin and [...] * HEADACHE [R51] MYALGIA AND MYOSITIS NOS [[id number]] Abnormal Weight Gain [R63.5] 05/19/2007 01/15/2010 PERS [...] Other lo (more content not included)... Normal [facility] .Auto Diffon 12-26-2021 Basophil, Absolute 0.1 10 3/mcL Normal 0.0-0.2 [facility] ([place]) Comment on above: Performed By: #### T OXSC UA #### [address] [address] Basophils/100 WBC (Bld) 1.1 % Normal 0.0-2.5 A [facility] ([place]) Comment on above: Performed By: #### T OXSC UA #### [address] [address] Eosinophil, Absolute 0.2 10 3/mcL Normal 0.0-0.4 Count includes the [facility] ([place]) Comment on above: Performed By: #### T OXSC UA #### [address] [address] Eosinophils/100 WBC (Bld) 3.2 % Normal 0.0-7.0 [facility] ([place] Comment on above: Performed By: #### T OXSC, UA #### [address] [address] Lymphocyte, Absolute 2.4 10 3/mcL Normal 0.8-3.9 Count includes the [facility] ([place]) Comment on above: Performed By: #### T OXSC, UA #### [address] [address] Lymphocytes/100 WBC (Bld) 37.9 % Normal 10.0-50.0 [facility] ([place]) Comment on above: Performed By: #### T OXSC, UA #### Gabriela [address] [address] Monocyte, Absolute 0.6 10 3/mcL Normal 0.2-1.0 [facility] ([place]) Comment on above: Performed By: #### T OXSC, UA #### [address] [address] Monocytes/100 WBC (Bld) 9.4 % Normal 1.7-13.0 [facility] ([place]) Comment on above: Performed By: #### T OXSC, UA #### [address] [address] Neutrophils/100 WBC (Bld) 48.4 % Normal 37.0-80.0 [facility] ([place]) Comment on above: Performed By: #### T OXSC, UA #### [address] [address] .GFRon 12-26-2021 GFR 79 ml/min/1.73sqm Normal [facility] ([place]) Comment on above: Result Comment: GFR Population [...] Performed By: #### G FR, CMP #### [address] [address] GFR Non- 65 ml/min/1.73sqm Normal [facility] ([place]) Comment on above: Result Comment: GFR Population [...] mL/min/1.73 square meters Performed By: #### G , CMP #### [address] [address] .MDWon 12-26-2021 Monocyte Distribution Width Not performed Normal 0.00-20.00 [facility] ([place]) Comment on above: Result Comment: MDW testing performed only on adult ER patients between the ages of 18-89 years. Performed By: #### T OXSC, UA #### [address] [address] .NEUABSon 12-26-2021 Neutrophil, Absolute 3.1 10 3/mcL Normal 2.9-6.2 Count includes the [facility] ([place]) Comment on above: Performed By: #### T OXSC, UA #### [address] [address] A1Con 12-26-2021 HbA1c (Bld) [Mass fraction] 5.8 % Normal 4.3-6.4 [facility] ([place] Comment on above: Performed By: #### G FR, CMP #### [address] [address] BMPon 12-26-2021 BUN/Creatinine Ratio 6 ratio Low 7-27 [facility] ([place]) Comment on above: Performed By: #### T OXSC, UA #### [address] [address] Calcium [Mass/Vol] 8.7 mg/dL Normal 8.4-10.2 [facility] ([place]) Comment on above: Performed By: #### T OXSC, UA #### [address] [address] Chloride [Moles/Vol] 102 mmol/L Normal 98-107 [facility] ([place]) Comment on above: Performed By: #### T OXSC, UA #### [address] [address] CO2 [Moles/Vol] 30 mmol/L Normal 23-31 [facility] ([place] Comment on above: Performed By: #### T OXSC, UA #### [address] [address] Creatinine [Mass/Vol] 0.88 mg/dL Normal 0.55-1.02 [facility] [place] Comment on above: Performed By: #### T OXSC, UA #### [address] [address] Electrolyte Balance 7.0 mEq/L Normal 4.0-15.0 [facility] ([place]) Comment on above: Performed By: #### T OXSC, UA #### [address] [address] Glucose [Mass/Vol] 90 mg/dL Normal 80-115 [facility] ([place] Comment on above: Performed By: #### T OXSC, UA #### [address] [address] Potassium [Moles/Vol] 4.3 mmol/L Normal 3.5-5.1 [facility] [place] Comment [place]: Performed By: #### T OXSC, UA #### [address] [address] Sodium [Moles/Vol] 139 mmol/L Normal 136-145 [facility] ([place]) Comment on above: Performed By: #### PRATEEK CORRAL #### [address] [address] Urea nitrogen [Mass/Vol] 5 mg/dL Low 7-18 [facility] ([place]) Comment on above: Performed By: #### Hua WHITTEN UA #### [address] [address] CBCon 12-26-2021 Erythrocyte distribution width (RBC) [Ratio] 12.7 % Normal 11.5-14.5 [facility] ([place]) Comment on above: Performed By: #### PRATEEK CORRAL #### [address]ela [address] [address] Hematocrit (Bld) [Volume fraction] 38.2 % Normal 37.0-47.0 [facility] ([place] Comment on above: Performed By: #### PRATEEK CORRAL #### [address] [address] Hgb 13.3 G/dL Normal 12.0-16.0 [facility] ([place] Comment on above: Performed By: #### PRATEEK CORRAL #### [address] [address] MCH (RBC) [Entitic mass] 33.2 pg High 27.0-31.2 [facility] ([place]) Comment on above: Performed By: #### Hua WIHTTEN UA #### [address] [address] MCHC 34.7 G/dL Normal 33.0-37.0 [facility] ([place]) Comment on above: Performed By: #### Hua WHITTEN UA #### [address] [address] MCV (RBC) [Entitic vol] 95.6 fL High 80.0-94.0 A [facility] ([place]) Comment on above: Performed By: #### Hua WHITTEN UA #### [address] [place], [place] [address] Platelet 418 10 3/mcL High 130-400 [facility] ([place]) Comment on above: Performed By: #### T OXJEANNA, UA #### [address] [place], [place] [address] Platelet mean volume (Bld) [Entitic vol] 6.8 fL Low 7.4-10.4 [facility] ([place] Comment on above: Performed By: #### T OXSC, UA #### [address] [place] [address] [id number] [place], [place] [address] RBC 4.00 10 6/mcL Low 4.20-5.40 [facility] ([place]) Comment on above: Performed By: #### T OXJEANNA, UA #### [address] [id number] [place], [place] [address] WBC 6.3 10 3/mcL Normal 4.6-10.8 [facility] ([place]) Comment on above: Performed By: #### T OXJEANNA, UA #### [address] [address] LABORATORYOrdered By: Radha Padgett on 12-26-2021 Basophil, [...] [Mass/Vol] 2.0 mg/dL Normal 1.8-2.4 [facility] ([place]) Comment on above: Performed By: #### T OXSC, UA #### [address] [address] OSMOUon 12-26-2021 U Osmolality 104 mOsm/kg Low 390-1090 [facility] ([place]) Comment on above: Performed By: #### G FR, CMP #### [address] [address] TSHon 12-26-2021 TSH Qn 1.35 m[IU]/L Normal 0.36-3.74 [facility] ([place]) Comment on above: Performed By: #### G FR, CMP #### [address] [address] .Auto Diffon 12-25-2021 Basophil, Absolute 0.1 10 3/mcL Normal 0.0-0.2 [facility] ([place]) Comment on above: Performed By: #### T OXSC UA #### [address] [address] Basophils/100 WBC (Bld) 1.2 % Normal 0.0-2.5 A [facility] ([place]) Comment on above: Performed By: #### T OXSC, UA #### [address] [address] Eosinophil, Absolute 0.1 10 3/mcL Normal 0.0-0.4 Count includes the [facility] ([place]) Comment on above: Performed By: #### T OXSC UA #### [address] [address] Eosinophils/100 WBC (Bld) 0.7 % Normal 0.0-7.0 [facility] ([place]) Comment on above: Performed By: #### T OXSC UA #### [address] [address] Lymphocyte, Absolute 1.5 10 3/mcL Normal 0.8-3.9 Count includes the [facility] ([place]) Comment on above: Performed By: #### T OXSC UA #### [address] [address] Lymphocytes/100 WBC (Bld) 17.7 % Normal 10.0-50.0 [facility] ([place]) Comment on above: Performed By: #### T OXSC, UA #### [address] [address] Monocyte, Absolute 0.5 10 3/mcL Normal 0.2-1.0 [facility] ([place]) Comment on above: Performed By: #### T OXSC UA #### [address] [address] Monocytes/100 WBC (Bld) 5.9 % Normal 1.7-13.0 A [facility] ([place]) Comment on above: Performed By: #### T OXSC, UA #### [address] [address] Neutrophils/100 WBC (Bld) 74.5 % Normal 37.0-80.0 [facility] ([place] Comment on above: Performed By: #### T OXSC, UA #### [address] [address] .GFRon 12-25-2021 GFR 78 ml/min/1.73sqm Normal [facility] ([place] Comment on above: Result Comment: GFR Population [...] Performed By: #### G FR, CMP #### [address] [address] GFR Non- 64 ml/min/1.73sqm Normal [facility] ([place] Comment on above: Result Comment: GFR Population [...] Performed By: #### G FR, CMP #### [address] [address] GFR Non- 58 ml/min/1.73sqm Normal [facility] ([place] Comment on above: Result Comment: GFR Population [...] Performed By: #### B MP, GFR #### [address] [address] GFR 70 ml/min/1.73sqm Normal [facility] ([place] Comment on above: Result Comment: GFR Population [...] Performed By: #### B MP, GFR #### [address] [address] .MDWon 12-25-2021 Monocyte Distribution Width 15.85 Normal 0.00-20.00 [facility] ([place]) Comment on above: Result Comment: For ED adult patients suspected of sepsis, MDW<=20.0 does not rule out sepsis or risk of sepsis Performed By: #### T OXSC, UA #### [address] [address] .NEUABSon 12-25-2021 Neutrophil, Absolute 6.4 10 3/mcL High 2.9-6.2 Count includes the [facility] ([place]) Comment on above: Performed By: #### T OXSC, UA #### [address] [address] BMPon 12-25-2021 BUN/Creatinine Ratio 4 ratio Low 7-27 [facility] ([place]) Comment on above: Performed By: #### G , CMP #### [address] [address] Calcium [Mass/Vol] 8.7 mg/dL Normal 8.4-10.2 [facility] ([place]) Comment on above: Performed By: #### Bryce HAINES, CMP #### [address] [address] Chloride [Moles/Vol] 97 mmol/L Low 98-107 [facility] ([place]) Comment on above: Performed By: #### Bryce HAINES, CMP #### [address] [address] CO2 [Moles/Vol] 27 mmol/L Normal 23-31 [facility] ([place] Comment on above: Performed By: #### Bryce HAINES, CMP #### [address] [address] Creatinine [Mass/Vol] 0.89 mg/dL Normal 0.55-1.02 [facility] [place] Comment [place]: Performed By: #### Bryce HAINES, CMP #### [address] [address] Electrolyte Balance 8.0 mEq/L Normal 4.0-15.0 [facility] ([place] Comment on above: Performed By: #### G FR, CMP #### [address] [address] Glucose [Mass/Vol] 96 mg/dL Normal 80-115 [facility] ([place] Comment on above: Performed By: #### G , CMP #### [address] [address] Potassium [Moles/Vol] 4.0 mmol/L Normal 3.5-5.1 [facility] [place] Comment [place] above: Performed By: #### G FR, CMP #### [address] [address] Sodium [Moles/Vol] 132 mmol/L Low 136-145 [facility] ([place] Comment on above: Performed By: #### G FR, CMP #### [address] [address] Urea nitrogen [Mass/Vol] 4 mg/dL Low 7-18 [facility] ([place] Comment on above: Performed By: #### G FR, CMP #### [address] [address] BUN/Creatinine Ratio 4 ratio Low 7-27 [facility] ([place]) Comment on above: Performed By: #### B MP, GFR #### [address] [address] Calcium [Mass/Vol] 9.6 mg/dL Normal 8.4-10.2 [facility] ([place] Comment on above: Performed By: #### B MP, GFR #### [address] [address] Chloride [Moles/Vol] 91 mmol/L Low 98-107 [facility] ([place]) Comment on above: Performed By: #### B MP, GFR #### [address] [address] CO2 [Moles/Vol] 28 mmol/L Normal 23-31 [facility] ([place] Comment on above: Performed By: #### B MP, GFR #### [address] [address] Creatinine [Mass/Vol] 0.98 mg/dL Normal 0.55-1.02 [facility] [place] Comment [place] above: Performed By: #### B MP, GFR #### [address] [address] Electrolyte Balance 9.0 mEq/L Normal 4.0-15.0 [facility] ([place] Comment on above: Performed By: #### B MP, GFR #### [address] [address] Glucose [Mass/Vol] 116 mg/dL High 80-115 [facility] ([place] Comment on above: Performed By: #### B MP, GFR #### [address] [address] Potassium [Moles/Vol] 3.7 mmol/L Normal 3.5-5.1 [facility] [place] Comment [place] above: Performed By: #### B MP, GFR #### [address] [address] Sodium [Moles/Vol] 128 mmol/L Low 136-145 [facility] ([place]) Comment on above: Performed By: #### B MP, GFR #### [address] [address] Urea nitrogen [Mass/Vol] 4 mg/dL Low 7-18 [facility] ([place] Comment on above: Performed By: #### B MP, GFR #### [address] [address] CBCon 12-25-2021 Erythrocyte distribution width (RBC) [Ratio] 12.7 % Normal 11.5-14.5 [facility] ([place]) Comment on above: Performed By: #### T OXSC, UA #### [address] [address] Hematocrit (Bld) [Volume fraction] 42.5 % Normal 37.0-47.0 [facility] ([place] Comment on above: Performed By: #### T OXSC, UA #### [address] [address] Hgb 15.1 G/dL Normal 12.0-16.0 [facility] ([place] Comment on above: Performed By: #### T OXSC, UA #### [address] [address] MCH (RBC) [Entitic mass] 33.5 pg High 27.0-31.2 [facility] ([place] Comment on above: Performed By: #### PRATEEK CORRAL #### [id number] [place], [place] [address] MCHC 35.5 G/dL Normal 33.0-37.0 [facility] ([place] Comment on above: Performed By: #### PRATEEK CORRAL #### [address] [place], [place] [address] MCV (RBC) [Entitic vol] 94.2 fL High 80.0-94.0 A [facility] ([place] Comment on above: Performed By: #### PRATEEK CORRAL #### [address] [place] [id number] [place], [place] [address] Platelet 530 10 3/mcL High 130-400 [facility] ([place] Comment on above: Performed By: #### PRATEEK CORRAL #### [address] [address] Platelet mean volume (Bld) [Entitic vol] 6.5 fL Low 7.4-10.4 [facility] ([place] Comment on above: Performed By: #### PRATEEK CORRAL #### [address] [address] RBC 4.52 10 6/mcL Normal 4.20-5.40 [facility] ([place] Comment on above: Performed By: #### PRATEEK CORRAL #### [address] [address] WBC 8.6 10 3/mcL Normal 4.6-10.8 [facility] ([place] Comment on above: Performed By: #### PRATEEK CORRAL #### [address] [address] [address] HEAD OR BRAIN W/O CONTRAS Ton [...] 12/25/2021 12:16:50 PM Ordering Provider: KRYSTAL VALLADARES [facility] ([place]) LABORATORYOrdered By: Bridgette Hodgson on 12-25-2021 Osmolality [...] Invalid Interpretation Code 275 - 300 mOsm/kg Manual Chem SS LABORATORYOrdered By: Kate Altman [...] 12-25-2021 Sodium [Moles/Vol] 22 mmol/L Normal 20-110 [facility] ([place]) Comment on above: Performed By: #### Bryce HAINES, CMP #### [address] [address] OSMOSon 12-25-2021 Osmolality [Osmolality] 263 mosm/kg Low 275-300 [facility] ([place]) Comment on above: Performed By: ###Rose HAINES, CMP #### [address] [address] TOXSCon 12-25-2021 U Ampheta (AO) Negative [facility] ([place]) Comment on above: Performed By: #### Hua OXSC UA #### [address] [address] U Soraya (AO) Negative [facility] ([place]) Comment on above: Performed By: #### Hua OXSC, UA #### [address] [address] U Hu (AO) Negative [facility] ([place]) Comment on above: Performed By: #### Hua OXSC, UA #### [address] [address] U Cannab (AO) Negative [facility] ([place]) Comment on above: Performed By: #### T OXSC, UA #### [address] [address] U Cocaine (AO) Negative Normal [facility] ([place]) Comment on above: Performed By: #### T OXSC, UA #### [address] [address] U Methadone (AO) Negative Normal [facility] ([place] Comment on above: Performed By: #### T OXSC, UA #### [address] [address] U PCP (AO) Negative [facility] ([place]) Comment on above: Performed By: #### T OXSC, UA #### [address] [address] U TCA (AO) Positive [facility] ([place]) Comment on above: Performed By: #### T OXSC, UA #### [address] [address] Urine Opiates (AO) Negative [facility] ([place]) Comment on above: Performed By: #### T OXSC, UA #### [address] [address] UAon 12-25-2021 Color (U) Yellow Normal [facility] ([place]) Comment on above: Performed By: #### T OXSC, UA #### [address] [address] Glucose (U) [Mass/Vol] Negative Normal Negative Count includes the [facility] ([place]) Comment on above: Performed By: #### T OXSC, UA #### [address] [address] Ketones Ql (U) Negative Normal Negative [facility] ([place]) Comment on above: Performed By: #### T OXSC, UA #### [address] [address] UA Appear Clear Normal Clear [facility] ([place] Comment on above: Performed By: #### T OXSC, UA #### [address] [address] UA Blood Trace Abnormal Negative [facility] ([place] Comment on above: Performed By: #### T OXSC, UA #### [address] [address] UA Leuk Est Negative Normal Negative [facility] ([place] Comment on above: Performed By: #### T OXSC, UA #### [address] [address] UA Nitrite Negative Normal Negative [facility] ([place] Comment on above: Performed By: #### T OXSC, UA #### [place] [address] UA pH 6.0 Normal 5.0 - 8.0 [facility] ([place] Comment on above: Performed By: #### T OXSC, UA #### [address] [place] [place] [address] UA Protein Negative Normal Negative [facility] ([place] Comment on above: Performed By: #### T OXSC, UA #### [address] [address] UA Spec Grav 1.010 Abnormal 1.015-1.02 5 [facility] ([place] Comment on above: Performed By: #### T OXSC, UA #### [address] [address] UA Specimen Type Clean Catch Normal [facility] ([place] Comment on above: Performed By: #### T OXSC, UA #### [address] [address] UA Urobilinogen 0.2 E.U./dL Normal 0.2-1.0 [facility] ([place] Comment on above: Performed By: #### T OXSC, UA #### [address] [address] Urobilinogen (U) [Mass/Vol] Negative Normal Negative [facility] ([place] Comment on above: Performed By: #### T OXSC, UA #### [address] [address] XR CHEST 1 VIEWon 12-25-2021 XR CHEST [...] Date: 12/25/2021 12:13:51 PM Ordering Provider: KRYSTAL Perez [facility] ([place] XR FOREARM 2 VIEWS RIGHTon 0 12-11-2021 [...] 12/11/2021 8:34:16 PM Ordering Provider: BALDOMERO HEAD [facility] ([place]) .Auto Diffon 10-20-2021 Basophil, Absolute 0.1 10 3/mcL Normal 0.0-0.2 [facility] ([place]) Comment on above: Performed By: #### G FR, CMP #### [address] [address] Basophils/100 WBC (Bld) 0.8 % Normal 0.0-2.5 A [facility] ([place]) Comment on above: Performed By: #### G FR, CMP #### [address] [address] Eosinophil, Absolute 0.1 10 3/mcL Normal 0.0-0.4 Count includes the [facility] ([place]) Comment on above: Performed By: #### G FR, CMP #### [address] [address] Eosinophils/100 WBC (Bld) 1.5 % Normal 0.0-7.0 [facility] ([place] Comment on above: Performed By: #### G FR, CMP #### [address] [address] Lymphocyte, Absolute 1.4 10 3/mcL Normal 0.8-3.9 Count includes the [facility] ([place]) Comment on above: Performed By: #### G FR, CMP #### [address] [address] Lymphocytes/100 WBC (Bld) 18.5 % Normal 10.0-50.0 [facility] ([place] Comment on above: Performed By: #### G FR, CMP #### [address] [address] Monocyte, Absolute 0.5 10 3/mcL Normal 0.2-1.0 [facility] ([place]) Comment on above: Performed By: #### G FR, CMP #### [address] [address] Monocytes/100 WBC (Bld) 6.6 % Normal 1.7-13.0 A [facility] ([place]) Comment on above: Performed By: #### G FR, CMP #### [address] [address] Neutrophils/100 WBC (Bld) 72.6 % Normal 37.0-80.0 [facility] ([place] Comment on above: Performed By: #### G FR, CMP #### [address] [address] .GFRon 10-20-2021 GFR 64 ml/min/1.73sqm Normal [facility] ([place]) Comment on above: Result Comment: GFR Population [...] 15 mL/min/1.73 square meters Performed By: #### Bryce HAINES, CMP #### [address] [address] GFR Non- 53 ml/min/1.73sqm Normal [facility] ([place]) Comment on above: Result Comment: GFR Population [...] mL/min/1.73 square meters Performed By: #### G , CMP #### Gabriela [id number] [place], [place] [address] .MDWon 10-20-2021 Monocyte Distribution Width 15.89 Normal 0.00-20.00 [facility] ([place]) Comment on above: Result Comment: For ED adult patients suspected of sepsis, MDW<=20.0 does not rule out sepsis or risk of sepsis Performed By: #### G , CMP #### [address] [address] .NEUABSon 10-20-2021 Neutrophil, Absolute 5.6 10 3/mcL Normal 2.9-6.2 Count includes the [facility] ([place]) Comment on above: Performed By: #### G FR, CMP #### [address] [address] CBCon 10-20-2021 Erythrocyte distribution width (RBC) [Ratio] 13.1 % Normal 11.5-14.5 [facility] ([place] Comment on above: Performed By: #### G FR, CMP #### [address] [address] Hematocrit (Bld) [Volume fraction] 41.7 % Normal 37.0-47.0 [facility] ([place] Comment on above: Performed By: #### Bryce FR, CMP #### [address] [address] Hgb 14.4 G/dL Normal 12.0-16.0 [facility] ([place] Comment on above: Performed By: #### G FR, CMP #### [address] [address] MCH (RBC) [Entitic mass] 33.0 pg High 27.0-31.2 [facility] ([place] Comment on above: Performed By: #### G FR, CMP #### [address] [address] MCHC 34.5 G/dL Normal 33.0-37.0 [facility] [place] Comment on above: Performed By: #### G FR, CMP #### [address] [address] MCV (RBC) [Entitic vol] 95.5 fL High 80.0-94.0 A [facility] ([place] Comment on above: Performed By: #### G FR, CMP #### [address] [address] Platelet 381 10 3/mcL Normal 130-400 [facility] ([place] Comment on above: Performed By: #### G FR, CMP #### [address] [address] Platelet mean volume (Bld) [Entitic vol] 7.4 fL Normal 7.4-10.4 [facility] ([place] Comment on above: Performed By: #### G FR, CMP #### [address] [address] RBC 4.36 10 6/mcL Normal 4.20-5.40 [facility] ([place] Comment on above: Performed By: #### G FR, CMP #### [address] [address] WBC 7.7 10 3/mcL Normal 4.6-10.8 [facility] [place] Comment on above: Performed By: #### G FR, CMP #### [address] [address] CMPon 10-20-2021 Albumin Level 4.3 G/dL Normal 3.4-4.8 [facility] [place] Comment on above: Performed By: #### G FR, CMP #### [address] [address] Albumin/Globulin [Mass ratio] 1.3 {ratio} Normal 1.1-2.5 [facility] ([place] Comment on above: Performed By: #### G FR, CMP #### [address] [address] ALP [Catalytic activity/Vol] 93 U/L Normal 40-135 [facility] [place] Comment on above: Performed By: #### G FR, CMP #### [address] [address] ALT [Catalytic activity/Vol] 36 U/L Normal 14-59 [facility] ([place] Comment on above: Performed By: #### G FR, CMP #### [address] [address] AST [Catalytic activity/Vol] 31 U/L Normal 10-40 [facility] [place] Comment on above: Performed By: #### G FR, CMP #### [address] [address] Bili Total 0.2 mg/dL Normal 0.2-1.0 [facility] ([place]) Comment on above: Result Comment: Use of this assay is not recommended for patients undergoing treatment with eltrombopag due to the potential for falsely elevated results. Performed By: #### G , CMP #### [address] [address] BUN/Creatinine Ratio 19 ratio Normal 7-27 [facility] ([place]) Comment on above: Performed By: #### G , CMP #### [address] [address] Calcium [Mass/Vol] 10.0 mg/dL Normal 8.4-10.2 [facility] ([place]) Comment on above: Performed By: #### G , CMP #### [address] [address] Chloride [Moles/Vol] 98 mmol/L Normal 98-107 [facility] ([place]) Comment on above: Performed By: #### G , CMP #### [address] [address] CO2 [Moles/Vol] 32 mmol/L High 23-31 [facility] [place] Comment on above: Performed By: #### G , CMP #### [address] [address] Creatinine [Mass/Vol] 1.06 mg/dL High 0.55-1.02 [facility] [place]) Comment on above: Performed By: #### G FR, CMP #### [address] [address] Electrolyte Balance 9.0 mEq/L Normal 4.0-15.0 [facility] ([place]) Comment on above: Performed By: #### G FR, CMP #### [address] [address] Globulin 3.2 G/dL Normal [facility] ([place]) Comment on above: Performed By: #### G FR, CMP #### [address] [address] Glucose [Mass/Vol] 104 mg/dL Normal 80-115 [facility] ([place]) Comment on above: Performed By: #### G FR, CMP #### [id number] [place], [place] [address] Potassium [Moles/Vol] 4.4 mmol/L Normal 3.5-5.1 [facility] [place] Comment on above: Performed By: #### G FR, CMP #### [address] [address] Sodium [Moles/Vol] 139 mmol/L Normal 136-145 [facility] ([place]) Comment on above: Performed By: #### G FR, CMP #### [address] [address] Total Protein 7.5 G/dL Normal 6.4-8.2 [facility] ([place] Comment on above: Performed By: #### G FR, CMP #### [address] [address] Urea nitrogen [Mass/Vol] 20 mg/dL High 7-18 [facility] ([place]) Comment on above: Performed By: #### G FR, CMP #### [address] [address] [address] ABDOMEN/PELVIS W/O CONTRA STon 10-20-2021 CT [...] follow-up with pelvic US. Reference: Radiology 2010 Jan;256(3):943-49 Interpreted by: Cr Bowden MD Preliminary Report By: Cr Bowden MD Electronically signed By Cr Bowden MD Dictated Date: 10/20/2021 3:43:54 PM Prelim Date: 10/20/2021 3:49:59 PM Sign Date: 10/20/2021 3:49:59 PM Ordering Provider: KRYSTAL VALLADARES [facility] ([place]) LABORATORYOrdered By: Princess Shah on 10-20-2021 Albumin [...] 10/20/2021 5:13:20 PM Ordering Provider: KRYSTAL Perez [facility] ([place]) TOXASSURE COMPRon 11-25-2018 TOXASSURE COMPR FINAL Normal () [facility] Comment on above: Result Comment: ====== TOXASSURE [...] consultation, please call . ====== Performed At: [employer] [address] [place] [phone] Juancho Kern PhrMI [phone] Performed By: #### L [phone] #### [facility] [address] [address] # [phone] Office Visit: abnormal CT a/ p for c-scopeon 01-11-2017 Dietary management education, guidance, and counseling (procedure) yes Invalid Interpretation Code [facility] Work Phone: Documentation of current medications (procedure) Done Invalid Interpretation Code [facility] Work Phone: Fall risk assessment No Invalid Interpretation Code [facility] Work Phone: Smoking cessation education (procedure) yes Invalid Interpretation Code [facility] Work Phone: Tobacco use [facility] Current every day smoker Invali d Interpretation Code [facility] Work Phone: Vital Signs Date Time Vital Sign Value Performing Clinician Facility 10-28-2024 21:38-0400 Body temperature 98.1 [degF] Dr. Yobany Snell MD Work Phone: [facility] 10-28-2024 21:38-0400 Diastolic blood pressure 72 mm[Hg] Dr. Yobany Snell MD Work Phone: [facility] 10-28-2024 21:38-0400 Heart rate 79 /min Dr. Yobany Snell MD Work Phone: [facility] 10-28-2024 21:38-0400 Respiratory rate 16 /min Dr. Yobany Snell MD Work Phone: [facility] 10-28-2024 21:38-0400 SaO2% (BldA) [Mass fraction] 92 % Dr. Yobany Snell MD Work Phone: [facility] 10-28-2024 21:38-0400 Systolic blood pressure 118 mm[Hg] Dr. Yobany Snell MD Work Phone: [facility] 10-28-2024 18:46-0400 Body height 152.[address] Yobany Snell MD Work Phone: [facility] 10-28-2024 18:46-0400 Body mass index (BMI) [Ratio] 30.8 kg/m2 Dr. Yobany Snell MD Work Phone: [facility] 10-28-2024 18:46-0400 Body weight 71.[address] Yobany Snell MD Work Phone: [facility] 06-24-2023 14:45-0500 Diastolic blood pressure 72 mm[Hg] [facility] 06-24-2023 14:45-0500 Heart rate 72 /min [facility] 06-24-2023 14:45-0500 Respiratory rate 18 /min [facility] 06-24-2023 14:45-0500 SaO2% (BldA) [Mass fraction] 92 % [facility] 06-24-2023 14:45-0500 Systolic blood pressure 119 mm[Hg] [facility] 06-24-2023 13:35-0500 Body height 152.4 cm [facility] 06-24-2023 13:35-0500 Body mass index (BMI) [Ratio] 27.3 kg/m2 [facility] 06-24-2023 13:35-0500 Body temperature 97.1 [degF] [facility] 06-24-2023 13:35-0500 Body weight 63.5 kg [facility] 04-25-2023 17:41-0500 Heart rate 72 /min [facility] 04-25-2023 17:41-0500 Respiratory rate 18 /min [facility] 04-25-2023 15:42-0500 Body mass index (BMI) [Ratio] 26.4 kg/m2 [facility] 04-25-2023 15:42-0500 Body weight 59.3 kg [facility] 04-25-2023 15:36-0500 Body height 149.86 cm [facility] 04-25-2023 15:36-0500 Body temperature 97.2 [degF] [facility] 04-25-2023 15:36-0500 Diastolic blood pressure 111 mm[Hg] [facility] 04-25-2023 15:36-0500 SaO2% (BldA) [Mass fraction] 100 % [facility] 04-25-2023 15:36-0500 Systolic blood pressure 164 mm[Hg] [facility] 03-23-2022 15:00-0500 Diastolic blood pressure 68 mm[Hg] Nelsy Chaudhari PA-C Work Phone: [facility] 03-23-2022 15:00-0500 Systolic blood pressure 145 mm[Hg] Nelsy Chaudhari PA-C Work Phone: [facility] 03-23-2022 14:59-0500 Body temperature 97.7 [degF] Nelsy Chaudhari PA-C Work Phone: [facility] 03-23-2022 14:59-0500 Heart rate 86 /min Nelsy Chaudhari PA-C Work Phone: [facility] 03-23-2022 14:59-0500 Respiratory rate 18 /min Nelsy Chaudhari PA-C Work Phone: [facility] 03-23-2022 14:59-0500 SaO2% (BldA) [Mass fraction] 93 % Nelsy ADAMS-C Work Phone: [facility] 12-26-2021 11:32-0400 Body temperature 98.78 [degF] CARMEN BOYD [employer] [facility] [place] [facility] 12-26-2021 11:32-0400 Diastolic blood pressure 77 mm[Hg] CARMEN BOYD [employer] [facility] [place] [facility] 12-26-2021 11:32-0400 Heart rate 66 /min CARMEN BOYD [employer] [facility] [place] [facility] 12-26-2021 11:32-0400 Reason For Taking VItal Signs ACRMEN BOYD [employer] [facility] [place] [facility] 12-26-2021 11:32-0400 Systolic blood pressure 119 mm[Hg] CARMEN BOYD [employer] [facility] [place] [facility] 12-26-2021 07:36-0400 Reason For Taking VItal Signs CARMEN BOYD [employer]PER[employer] [facility] [place] [facility] 12-26-2021 07:20-0400 Body temperature 97.7 [degF] CARMEN KINGER SUPER[employer] [facility] [place] [facility] 12-26-2021 07:20-0400 Diastolic blood pressure 81 mm[Hg] CARMEN BOYD [employer] [facility] [place] [facility] 12-26-2021 07:20-0400 Heart rate 60 /min CARMEN BOYD [employer] [facility] [place] [facility] 12-26-2021 07:20-0400 Reason For Taking VItal Signs CARMEN BOYD SUPER[employer] [facility] [place] [facility] 12-26-2021 07:20-0400 Respiratory rate 16 /min CARMEN KINGER SUPER[employer] [facility] [place] [facility] 12-26-2021 07:20-0400 Systolic blood pressure 120 mm[Hg] CARMEN KINGER SU[employer] [facility] [place] [facility] 12-26-2021 06:16-0400 Heart rate 63 /min CARMEN KINGER [employer] [facility] [place] [facility] 12-26-2021 04:10-0400 Body temperature 97.52 [degF] CARMEN KINGER [employer] [facility] [place] [facility] 12-26-2021 04:10-0400 Diastolic blood pressure 77 mm[Hg] CARMEN FERNANDOER SUPERVISOR [employer] [facility] [place] [facility] 12-26-2021 04:10-0400 Mean blood pressure 101 mm[Hg] CARMEN FERNANDOER SUPERVIS[employer] [facility] [place] [facility] 12-26-2021 04:10-0400 Respiratory rate 16 /min CARMEN FERNANDOER SUPER[employer] [facility] [place] [facility] 12-26-2021 04:10-0400 Systolic blood pressure 150 mm[Hg] CARMEN KAPPER SUPER[employer] [facility] [place] [facility] 12-26-2021 00:30-0400 Mean blood pressure 93 mm[Hg] CARMEN KAPPER SUPER[employer] [facility] [place] [facility] 12-26-2021 00:30-0400 Respiratory rate 18 /min CARMEN KAPPER SUPER[employer] [facility] [place] [facility] 12-25-2021 19:04-0400 Mean blood pressure 116 mm[Hg] CARMEN KAPPER SUPER[employer] [facility] [place] [facility] 12-25-2021 16:53-0400 Heart rate 66 /min CARMEN KAPPER SUPER[employer] [facility] [place] [facility] 12-25-2021 14:22-0400 Heart rate 66 /min CARMEN KAPPER SUPER[employer] [facility] [place] [facility] 12-25-2021 14:18-0400 Body height 150 cm CARMEN KAPPER SUPER[employer] [facility] [place] [facility] 12-25-2021 14:18-0400 Body weight 65.4 kg CARMEN KAPPER [employer] [facility] [place] [facility] 12-25-2021 14:18-0400 Body weight 29.07 kg/m2 CARMEN KAPPER [employer] [facility] [place] [facility] 12-25-2021 13:19-0400 Heart rate 69 /min CARMEN KAPPER [employer] [facility] [place] [facility] 12-11-2021 19:48-0400 Body height 149.9 cm BALDOMERO DURESKA DO [facility] [place] [facility] 12-11-2021 19:48-0400 Body temperature 98.06 [degF] BALDOMERO DURESKA DO [facility] [place] [facility] 12-11-2021 19:48-0400 Body weight 63.6 kg BALDOMERO DURESKA DO [facility] [place] [facility] 12-11-2021 19:48-0400 Diastolic blood pressure 86 mm[Hg] BALODMERO DURESKA DO [facility] [place] [facility] 12-11-2021 19:48-0400 Heart rate 90 /min BALDOMERO DURESKA DO [facility] [place] [facility] 12-11-2021 19:48-0400 Respiratory rate 18 /min BALDOMERO DURESKA DO [facility] [place] [facility] 12-11-2021 19:48-0400 Systolic blood pressure 140 mm[Hg] BALDOMERO DURESKA DO [facility] [place] [facility] 10-20-2021 14:58-0400 Body temperature 98.42 [degF] KRYSTAL VALLADARES MD [facility] [place] [facility] 10-20-2021 14:58-0400 Body weight 63.6 kg KRYSTAL VALLADARES MD [facility] [place] [facility] 10-20-2021 14:58-0400 Diastolic blood pressure 80 mm[Hg] KRYSTAL VALLADARES MD [facility] [place] [facility] 10-20-2021 14:58-0400 Heart rate 82 /min KRYSTAL VALLADARES MD [facility] [place] [facility] 10-20-2021 14:58-0400 Respiratory rate 18 /min KRYSTAL VALLADARES MD [facility] [place] [facility] 10-20-2021 14:58-0400 Systolic blood pressure 127 mm[Hg] KRYSTAL VALLADARES MD [facility] [place] [facility] 08-01-2021 22:25-0400 Respiratory rate 18 /min TOMMY FROMMELT DO [facility] [place] [facility] 08-01-2021 21:52-0400 Body height 152.4 cm TOMMY FROMMELT DO [facility] [place] [facility] 08-01-2021 21:52-0400 Body temperature 97.34 [degF] TOMMY FROMMELT DO [facility] [place] [facility] 08-01-2021 21:52-0400 Body weight 68.2 kg TOMMY FROMMELT DO [facility] [place] [facility] 08-01-2021 21:52-0400 Diastolic blood pressure 84 mm[Hg] TOMMY FROMMELT DO [facility] [place] [facility] 08-01-2021 21:52-0400 Heart rate 81 /min TOMMY FROMMELT DO [facility] [place] [facility] 08-01-2021 21:52-0400 Respiratory rate 16 /min TOMMY FROMMELT DO [facility] [place] [facility] 08-01-2021 21:52-0400 Systolic blood pressure 159 mm[Hg] TOMMY WOLFF DO [facility] 01-11-2017 15:29-0400 BMI (Body Mass Index) 26.48 kg/m2 [facility] Work Phone: 01-11-2017 15:29-0400 BP Diastolic 93 mm[Hg] [facility] Work Phone: 01-11-2017 15:29-0400 BP Systolic 133 mm[Hg] [facility] Work Phone: 01-11-2017 15:29-0400 Height 154.31 cm [facility] Work Phone: 01-11-2017 15:29-0400 Pulse (Heart Rate) 65 /min [facility] Work Phone: 01-11-2017 15:29-0400 Respiratory Rate 16 /min [facility] Work Phone: 01-11-2017 15:29-0400 Weight 63.05 kg [facility] Work Phone: 02-03-2011 10:14-0400 Body Temperature 97.8 [degF] [facility] Work Phone: Encounters Encounter Date Encounter Type Care Provider Facility Start: 10-28-2024 End: 10-28-2024 Emergency department patient visit Dr. Yobany Snell MD Work Phone: -Emergency Department Work Phone: Start: 10-13-2024 ambulatory Jaswinder Muñiz Facility:[facility] Start: 09-29-2024 End: 09-29-[address] Yobany Snell MD Work Phone: [facility] Work Phone: Start: 09-29-2024 End: 09-29-[address] Jaswinder Muñiz MD -Cat Scan [facility] Work Phone: Start: 09-29-2024 End: 09-29-2024 ambulatory Jaswinder Muñiz Facility:[facility] Start: 09-04-2024 End: 09-04-[address] Jaswinder Muñiz MD -Laboratory [facility] Start: 09-04-2024 End: 09-04-2024 [facility] Start: 07-27-2024 ambulatory Abrahan Murryi ty:[facility] Start: 07-18-2024 End: 07-18-[address] Yobany Snell MD Work Phone: [facility] Work Phone: Start: 07-18-2024 End: 07-18-[address] Yobany Snell MD -Laboratory, Phy Office 3rd Flr Start: 07-18-2024 End: 07-18-2024 ambulatory Yobany Chi Channing Facility:[facility] Start: 05-15-2024 ambulatory Yobany Chi Channing Facility:[facility] Start: 04-24-2024 ambulatory Yobany Chi Channing Facility:[facility] Start: 04-17-2024 End: 04-17-[address] Yobany Snell MD -Laboratory, Phy Office 3rd Flr Start: 04-17-2024 End: 04-17-2024 ambulatory Yobany Chi Channing Facility:[facility] Start: 02-07-2024 End: 02-07-2024 ambulatory Yobany Chi Channing Facility:[facility] Start: 01-12-2024 End: 01-12-2024 ambulatory Yobany Chi Channing Facility:[facility] Start: 12-07-2023 ambulatory Yobany Chi Channing Facility:[facility] Start: 08-31-2023 End: 08-31-2023 ambulatory [facility] Work Phone: Start: 08-31-2023 End: 08-31-2023 Patient encounter procedure [facility]-Radiology, [facility] Work Phone: Start: 08-12-2023 End: 08-12-2023 ambulatory [facility] Work Phone: Start: 08-12-2023 End: 08-12-2023 Patient encounter procedure [facility]-Pulmonary Services/Neurology Work Phone: Start: 07-15-2023 End: 07-15-2023 ambulatory [facility] Work Phone: Start: 07-15-2023 End: 07-15-2023 Patient encounter procedure [facility]-Laboratory, Phy Office 3rd Flr Start: 06-24-2023 End: 06-24-2023 ambulatory [facility] Work Phone: Start: 06-24-2023 End: 06-24-2023 Patient encounter procedure [facility]-Radiology, [facility] Work Phone: Start: 06-21-2023 End: 06-21-2023 ambulatory [facility] Work Phone: Start: 06-21-2023 End: 06-21-2023 Patient encounter procedure [facility]-MRI - [facility] Work Phone: Start: 06-02-2023 End: 06-02-2023 ambulatory [facility] Work Phone: Start: 06-02-2023 End: 06-02-2023 Patient encounter procedure [facility]-MRI - [facility] Work Phone: Start: 05-03-2023 End: 05-03-2023 ambulatory [facility] Work Phone: Start: 05-03-2023 End: 05-03-2023 Patient encounter procedure [facility]-Laboratory, Phy Office 3rd Flr Start: 04-25-2023 End: 04-25-2023 Emergency department patient visit [facility]-Emergency Department Work Phone: Start: 04-15-2023 End: 04-15-2023 ambulatory [facility] Work Phone: Start: 04-15-2023 End: 04-15-2023 Patient encounter procedure [facility]-Laboratory, Phy Office 3rd Flr Start: 04-01-2023 End: 04-01-2023 ambulatory [facility] Work Phone: Start: 04-01-2023 End: 04-01-2023 Patient encounter procedure [facility]-Pulmonary Services/Neurology Work Phone: Start: 01-07-2023 End: 01-07-2023 ambulatory [facility] Work Phone: Start: 01-07-2023 End: 01-07-2023 Patient encounter procedure [facility]-Laboratory, Phy Office 3rd Flr Start: 11-05-2022 Telephone encounter Neftaly Coker MD Work Phone: Pain Management Comment on above: Patient Update Start: 10-20-2022 Refill Nelsy ADAMS-C Work Phone: Pain Management Comment on above: Refill Request Start: 10-18-2022 Refill Nelsy ADAMS-C Work Phone: Pain Management Comment on above: Refill Request Start: 09-11-2022 End: 09-11-2022 ambulatory NELSY CHAUDHARI Facility:[id number] Start: 08-12-2022 Refill Nelsy ADAMS-C Work Phone: Pain Management Comment on above: Refill Request Start: 07-27-2022 Telephone encounter Nelsy MINC Work Phone: Pain Management Comment on above: UDS/ patch count Start: 07-23-2022 End: 07-23-2022 ambulatory NELSY Munoz CHAUDHARI Facility:[id number] Start: 07-23-2022 End: 07-23-2022 ambulatory Nelsy ADAMS-C Work Phone: Pain Management Comment [...] Refill Request Start: 06-16-2022 Patient encounter procedure [facility]-Pulmonary Services/Neurology Start: 06-15-2022 End: 06-15-2022 ambulatory [facility] Work Phone: Start: 06-15-2022 End: 06-15-2022 Patient encounter procedure [facility]-Laboratory, Phy Office 3rd Flr Start: 06-11-2022 End: 06-11-2022 ambulatory Nelsy ADAMS-C Work Phone: Pain Management Comment on above: 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); Fibromyalgia; Degeneration of intervertebral disc of lumbar region; Lumbar spondylosis; Sacroiliitis (HCC); Chronic knee pain, unspecified laterality Start: 06-11-2022 End: 06-11-2022 Telemedicine consultation with patient Nelsy MINC Work Phone: [facility] Start: 05-14-2022 Refill Nelsy coello PA-C Work Phone: Pain Management Comment on above: Refill Request Start: 05-04-2022 End: 05-04-2022 ambulatory Nelsy ADAMS-C Work Phone: Pain Management Comment on above: Fibromyalgia (Primar y Dx); Degeneration of intervertebral disc of lumbar region; Lumbar spondylosis; Sacroiliitis (HCC); Degeneration of intervertebral disc of cervical region; Chronic knee pain, unspecified laterality Start: 05-04-2022 End: 05-04-2022 Telemedicine consultation with patient Nelsy ADAMS-C Work Phone: [facility] Start: 04-20-2022 Refill Nelsy coello PA-C Work Phone: Pain Management Comment on above: Refill Request Start: 04-15-2022 Refill Nelsy coello PA-C Work Phone: Pain Management Comment on above: Refill Request Start: 04-07-2022 End: 04-07-2022 ambulatory [facility] Work Phone: Start: 04-07-2022 End: 04-07-2022 Patient encounter procedure [facility]-Laboratory, Phy Office 3rd Flr Start: 03-23-2022 End: 03-23-2022 ambulatory NELSY CHAUDHARI Facility:[id number] Start: 03-23-2022 End: 03-23-2022 Patient encounter procedure Nelsy Tammy Watson BERRY Work Phone: Pain Management Comment on above: Fibromyalgia (Primar y Dx); Degeneration of intervertebral disc of lumbar region; Lumbar spondylosis; Sacroiliitis (HCC); Degeneration of intervertebral disc of cervical region; Chronic knee pain, unspecified laterality Start: 2022 Refill Nelsy MINC Work Phone: Pain Management Comment on above: Refill Request Start: 02-09-2022 End: 02-09-2022 ambulatory NELSY CHAUDHARI Facility:[id number] Start: 01-06-2022 Refill Nelsy ADAMS-C Work Phone: Pain Management Comment on above: Refill Request Start: 12-29-2021 End: 12-29-2021 Refill Nelsy ADAMS-C Work Phone: Pain Management Comment on above: Refill Request; Refi ll Request Start: 12-25-2021 End: 12-26-2021 Evaluation and management of inpatient CARMEN Wang OLIVRE SUPERVISOR [employer]URNITURE FABRICATION-JOSS HOUSE KEEPER [facility] Start: 12-11-2021 End: 12-11-2021 Emergency department patient visit BALDOMERO HEAD DO [facility] Start: 11-28-2021 Refill Neftaly Tyson MD Work Phone: Pain Management Comment on above: Refill Request Start: 10-20-2021 End: 10-20-2021 Emergency department patient visit KRYSTAL VALLADARES MD [facility] Start: 10-14-2021 End: 10-14-2021 Subsequent hospital visit by physician Nelsy Chaudhari PA-C Work Phone: [facility] Comment on above: FOLLOW UP Start: 09-01-2021 End: 09-01-2021 Subsequent hospital visit by physician Nelsy Chaudhari PA-C Work Phone: [facility] Comment on above: FOLLOW UP Start: 08-01-2021 End: 08-01-2021 Emergency department patient visit TOMMY WOLFF DO [facility] Start: 09-18-2016 End: 09-18-2016 ambulatory YOBANY SNELL [facility] Procedures Date Procedure Procedure Detail Performing Clinician Start: 10-28-2024 CT of abdomen and pe lvis without contrast Dr. Yobany Snell MD Work Phone: Start: 10-28-2024 Urnls dip stick/tabl et reagent auto microscopy Dr. Yobany Snell MD Work Phone: Start: 10-28-[address] Yobany Snell MD Work Phone: Start: 09-29-[address] Yobany [...] Diagnostic endoscopi c examination of ovary TOMMY Calixar Comment on above: fibroids Start: 07-19-2015 End: 07-31-2015 Drain/inject, joint/bursa Nelsy East Work Phone: Start: 04-03-2015 End: 04-17-2015 Drain/inject, joint/bursa Nelsy East Work Phone: Start: 02-21-2013 Mammography Nelsy ADAMS-Trino Work Phone: Start: 01-15-2010 Colonoscopy Nelsy ADAMS-Trino Work Phone: Start: 11-18-1992 section ESTEPHANIE Carmona [employer] Colonoscopy TOMMY KIMBERLYContext Matters [employer] Decompression of med spenser nerve TOMMY Calixar Comment on above: Right H/O: surgery Hx of explorator y laparotomy Influenza Types A,B Direct FA (RK) Respiratory syncytia l virus antigen assay Plan of Treatment Date Care Activity Detail Author Start: 10-28-2024 [facility] Start: 06-24-2023 Procedure [facility] Start: 04-25-2023 [facility] Start: 04-15-2023 Procedure [facility] Start: 01-15-2023 Influenza [facility] Start: 01-15-2022 Influenza vaccination [facility] Start: 07-30-2021 COVID-19 VACCINE (4 - Booster for Moderna series) COVID-19 VACCINE (4 - Booster for Moderna series) [facility] Start: 05-27-2021 COVID-19 VACCINE (4 - Booster for Moderna series) COVID-19 VACCINE (4 - Booster for Moderna series) [facility] Start: 02-14-2018 DIABETES SCREEN DIABETES SCREEN [facility] Start: 01-27-2017 End: 01-27-2017 Appointment Appointment [facility] [employer] Work Phone: Start: 01-11-2017 End: 01-11-2017 Diagnostic colonoscopy Colonoscopy [facility] [employer] Work Phone: Start: 01-11-2017 End: 01-12-2017 Follow Up Appt Other Follow Up Appt Other [facility] [employer] Work Phone: Start: 12-10-2016 HPV TESTING HPV TESTING [facility] Start: 12-10-2016 PAP TESTING PAP TESTING [facility] Start: 04-03-2015 End: 04-03-2015 Mri jnt of lwr extre w/o dye MRI Joint Lower Extremity [facility] [employer] Work Phone: Start: 04-03-2015 End: 04-03-2015 X-ray exam, knee, 4 or more X-Ray, Knee [facility] [employer] Work Phone: Start: 03-06-2014 LIPID SCREEN LIPID SCREEN [facility] Start: 02-21-2014 Mammography MAMMOGRAM [facility] Start: 01-15-2011 Colonoscopy COLONOSCOPY [facility] Start: 01-15-2011 COLORECTAL CANCER SCREENING COLORECTAL CANCER SCREENING [facility] Start: 2009 Influenza vaccination LUNG CANCER SCREENING [facility] Start: 2009 SHINGRIX VACCINE (1 of 2) SHINGRIX VACCINE (1 of 2) [facility] Start: 2004 COLOGUARD (FIT-DNA) COLOGUARD (FIT-DNA) [facility] Start: [address] COLONOGRAPHY [facility] Start: 2004 FECAL OCCULT BLOOD FECAL OCCULT BLOOD [facility] Start: 2004 SIGMOIDOSCOPY SIGMOIDOSCOPY [facility] Start: 02-15-2002 Urine microalbumin profile DTAP,TDAP,TD (1 - Tdap) [facility] Start: 1977 ANNUAL PCP TEAM CHRONIC DISEASE VISIT ANNUAL PCP TEAM CHRONIC DISEASE VISIT [facility] Start: 1977 HEPATITIS C SCREENING HEPATITIS C SCREENING [facility] Start: 1977 HIV SCREENING HIV SCREENING [facility] Start: 1977 SPIROMETRY SPIROMETRY [facility] Start: 1965 PNEUMOCOCCAL (1 - PCV) PNEUMOCOCCAL (1 - PCV) [facility] Start: 1964 COVID-19 VACCINE (#1) COVID-19 VACCINE (#1) [facility] Start: 1964 COVID-19 VACCINE (1) COVID-19 VACCINE (1) [facility] Start: 1959 COVID-19 VACCINE (#1) COVID-19 VACCINE (#1) [facility] Patient Education [facility] Work Phone: Patient referral [facility] Work Phone: [facility] Immunizations Immunization Date Immunization Notes Care Provider Fa cili 04-01-2021 influenza virus vacc ine, unspecified formulation CARMEN BOYD SUPERVISOR [employer]URN[employer] F[employer]RICATION[employer] HOUSE KEEPER [facility] 04-01-2021 pneumococcal polysaccharide vaccine, 23 valent CARMEN BOYD SUPERVISOR [employer]RICATION[employer] HOUSE KEEPER [facility] 04-01-2021 SARS-CoV-2 (COVID-19 ) [id number] vaccine CARMEN BOYD SUPERVISOR [employer]URN[employer]RICATION[employer] HOUSE KEEPER [facility] 11-15-2020 SARS-CoV-2 (COVID-19 ) mRNA-1273 vaccine CARMEN BOYD SUPERVISOR [employer]URN[employer] FABRICATION[employer]JOSS HOUSE KEEPER [facility] 10-08-2020 SARS-CoV-2 (COVID-19 ) [id number] vaccine CARMEN BOYD SUPERVISOR [employer]URNIT[employer] FABRICATION[employer]JOSS HOUSE KEEPER [facility] 05-29-2020 influenza virus vacc ine, unspecified formulation CARMEN BOYD SUPERVISOR [employer]URNITURE FABRICATION[employer] HOUSE KEEPER [facility] 05-29-2020 pneumococcal polysaccharide vaccine, 23 valent CARMEN KINGOSMAN SUPERVISOR [employer]URN[employer]ICATION[employer] HOUSE KEEPER [facility] 02-16-2018 influenza virus vacc ine, unspecified formulation CARMEN KINGOSMAN SUPERVISOR MET[employer]URNITURE FABRICATION[employer]JOSS HOUSE KEEPER [facility] 06-10-2017 influenza virus vacc ine, unspecified formulation CARMENBlaine KINGOSMAN SUPERVISOR METAL FURNITURE F[employer]RICATION[employer] HOUSE KEEPER [facility] 02-14-2009 influenza virus vacc ine, unspecified formulation Nelsy Chaudhari PA-C Work Phone: [facility] Work Phone: 04-06-2007 influenza virus vacc ine, unspecified formulation Nelsy Chaudhari PA-C Work Phone: [facility] Work Phone: 02-14-2002 tetanus and diphther ia toxoids, adsorbed, preservative free, for adult use (2 Lf of tetanus toxoid and 2 Lf of diphtheria toxoid) Nelsy Chaudhari PA-C Work Phone: [facility] Work Phone: 02-14-2002 tetanus and diphther ia toxoids, adsorbed, preservative free, for adult use (5 Lf of tetanus toxoid and 2 Lf of diphtheria toxoid) TOMMY WOLFF DO [facility] Payers Date Payer Category Payer Self-pay [id number] 2021 Medicaid [id number] 2021 Medicaid MEDICAID [facility] MEDICAID [id number] 2021-Present [phone] [address] [place] [address] Medicaid [id number] 2021 Medicaid [id number] 2020 Medicare HUMANA MEDICARE HUMANA GOLD PLUS [id number] 2020-Present [phone] [address] [address] [place] [address] HMO [id number] 2020 Medicare HUMANA MEDICARE HUMANA GOLD PLUS [id number] 2020-Present [phone] [address] [address] [place] [address] HMO [id number] 2020 Private Health Insurance [id number] 2000 Medicare MEDICARE MEDICAR E A AND B [id number] 2000-Present [phone] [place] [address] Medicare [id number] 2000 Medicare MEDICARE PART A B [id number] Unknown [id number] 62 Unknown [id number] 62 Unknown [id number] 62 Unknown [id number] 62 Unknown [id number] 62 Unknown [id number] 62 Unknown [id number] 62 Unknown [id number] 62 Unknown [id number] 62 Unknown [id number] 62 Unknown [id number] 62 Unknown [id number] 62 Social History Date Type Detail Facility Start: 03-29-2019 Light tobacco smoker (finding) [facility] Start: 1960 Sex Assigned At Female A [facility] Start: 12-29-2021 End: 10-28-2024 Tobacco smoking status GAIS Smokes tobacco daily [facility] History of tobacco use Cigarette Smoker [facility] Start: 02-20-2015 End: 09-11-2022 Alcohol intake Current non-drinker of alcohol (finding) [facility] Start: 1960 Sex Assigned At Not on file [facility] Start: 10-04-2021 End: 03-23-2022 Exposure to SARS-CoV-2 (event) Not sure [facility] Start: 12-25-2021 Tobacco smoking status Heavy t obacco smoker (finding) [facility] Start: 12-29-2021 End: 07-23-2022 Cigarettes smoked current (pack per day) - Reported 1 [facility] Start: 12-29-2021 End: 07-23-2022 Tobacco use and exposure Smokeless tobacco non-user [facility] Start: 09-06-2020 End: 04-25-2023 Tobacco smoking status NHIS Unknown if ever smoked [facility] Start: 09-06-2020 Cigarettes [facility] Start: 08-01-2024 Sex Female (finding) [facility] Functional Status Date Assessment Result Facility 12-26-2021 Functional Status bilateral knee high [facility] 12-26-2021 Functional Status Independent [facility] 12-26-2021 Functional Status Apartment [facility] 12-26-2021 Functional Status [facility] 12-26-2021 Functional Status [facility] 12-26-2021 Functional Status Demonstrates C orrect Call Light Use Yes [facility] 12-25-2021 Functional Status Moderate assistance [facility] 12-25-2021 Functional Status Dinner Percent 20 [facility] 12-25-2021 Functional Status Independent [facility] 12-25-2021 Functional Status Sensory Deficits None [facility] 12-25-2021 Functional Status Environmental Safety Implemented Adequate room lighting, Bed in low position, Call device within reach [facility] 12-25-2021 Functional Status [facility] 12-11-2021 Functional Status Ambulating in guerrero, Ambulating in room, Awake [facility] 12-11-2021 Functional Status Standard Safet y ID band on, Allergy Band on, Call device within reach, Bed in low position, Wheels locked, Upper/Half-Length side-rails up, personal items within reach, Visitor at bedside [facility] 10-20-2021 Functional Status Standard Safet y ID band on, Allergy Band on, Call device within reach, Bed in low position, Wheels locked, Upper/Half-Length side-rails up, Bedside Cart Locked, Safety level maintained [facility] Mental Status Date Assessment Result Facility 06-24-2023 Cognitive function Awake;Alert;Appropriat e [facility] Work Phone: 12-26-2021 Mental Status Oriented x 4 [facility] 12-26-2021 Mental Status [facility] 12-26-2021 Mental Status [facility] 12-26-2021 Mental Status [facility] 12-11-2021 Mental Status Orientation Oriented x 4 [facility] 12-11-2021 Mental Status [facility] 10-20-2021 Mental Status Orientation Oriented x 4 [facility] Clinical Notes 05-19-2007 to 10-28-2024 Note Date & Type Note Facility 10-28-2024 Discharge summary [facility] 10-28-2024 Radiology Diagnostic study note [facility] Imaging Services [address] [place], [place] [address] Abdomen/Pelvis without Cont MR#: [id number] Acct: [id number] Name: NAVIN AUGUST I Rep #: [id number] : 1960 F 64 From: Odalis Lara MD PCP: Dr. Jaswinder Muñiz MD Status: REG ER Study:Abdomen/Pelvis without Cont Date of Exa m: 10/28/24 Exam# [id number] Ordering Dr: Erlin Perla MD PROCEDURE: ABDOMEN/PELVIS WITHOUT CONT 10/28/2024 REASON FOR EXAM: LEFT FLANK PAIN. VERSUS LEFT LOWER POSTERIOR RIB TECHNIQUE: ABDOMEN/PELVIS WITHOUT CONT Noncontrast technique limits evaluation of the abdominal and pelvic viscera. Coronal and Sagittal reconstruction series were provided. One or more dose reduction techniques were used (e.g., Automated exposure control, adjustment of the mA and/or kV according to patient size, use of iterative reconstruction technique). ORAL CONTRAST TYPE: None. COMPARISON: None. FINDINGS: Lung bases: Bibasilar atelectasis. The heart is normal in size. Liver: The unopacified liver is normal in size. No biliary ductal dilation. Gallbladder: No radiopaque stones within the gallbladder. Spleen: Normal in size. Pancreas: The unopacified pancreas is unremarkable. Adrenals: No adrenal mass. Kidneys: No hydronephrosis or nephrolithiasis. Bladder: Distended and unremarkable. Reproductive Organs: Normal uterine size and contour. Ovaries are unremarkable. Bowel: The bowel loops are nondilated. Moderate retained fecal material throughout the colon. No ascites or pneumoperitoneum. Normal appendix. Lymph nodes: Visualization is limited without the use of IV contrast. No lymphadenopathy. Vasculature: Moderate calcific plaque of the aortoiliac vessels. Bones: Mild thoracolumbar spondylosis. CT/Abdomen/Pelvis without Cont IMPRESSION: No acute abdominopelvic finding. Reading Location: [facility] CC: Dr. Jaswinder Muñiz MD; Dr. Abdirizak Perla MD ~ Cylinder Inspector And Tester: Signed [facility] 10-28-2024 Discharge summary Note Date/Time October 28, 2024 9:31pm [facility] Medical Records Department [address] [place] [address] Emergency Department Summary 10/28/24 MR#: [id number] Acct: [id number] Name: NAVIN AUGUST I Rep #:[id number] : 1960 64 From: Abdirizak Perla MD PCP: Dr. Jaswinder Muñiz MD Status:REG ER Location: ED HPI HPI - GI History of Present Illness Chief Complaint: Flank Pain Detail of Chief Complaint: Left flank pain since yesterday. Denies any fall injury or trauma. Informant: patient and family Abdominal Pain/Flank Pain Onset: Today and Yesterday Context: Gradual Onset Timing: Continuous Quality: Aching and Sharp Current Severity: Mild Maximum Severity: Moderate Worsened by: Nothing Relieved by: Nothing Nausea/Vomiting/Emesis GI Symptom: Negative for Nausea or Vomiting Diarrhea/Melena/Hematochezia GI Symptom: Negative for Diarrhea, Melena or Hematochezia Associated Symptoms Associated Symptoms: Negative for Dysuria, Frequency, Hematuria or Urgency Narrative Narrative: 64-year-old female past medical history of anxiety depression. Complaint left flank pain for 2 days. Denies any fall injury or trauma. No prior history. Nohistory of kidney stones. No dysuria. No fever. No chest pain. No abdominal pain. No shortness of breath. Nothing particular makes the pain better or worse. Denies any known injury. No worse with movement. Prior similar symptoms: No Recent Illness/Hospitalization: No PFSH PFSH Medical History Vitamin D deficiency Osteoarthritis Chronic pain Depression Anxiety Hyperlipidemia Home Medications ?Medication ?Instructions ?Recorded ?Last Taken ?Type lamotrigine 200 mg tablet 400 mg PO DAILY 08/26/20 Unk nown History pantoprazole 40 mg tablet,delayed 40 mg PO DAILY #30 t abs 09/16/20 Unknown Rx release benztropine 1 mg tablet 1 mg PO DAILY 04/25/23 Unkno wn History galantamine 16 mg 24 hr 16 mg PO DAILY 04/25/23 Unkn own History capsule,extended release Allergy/AdvReac Type Severity Reaction Status Date / Time No Known Allergies Allergy Verified 10/28/24 18:46 Family History Father Asthma Heart disease Osteoporosis Mother Arthritis Diabetes Thyroid disorder Brother CVA (cerebral vascular accident) Sister Breast cancer Surgical History Hx of colonoscopy Hx of exploratory laparotomy Social History household members: family housing: house Smoking Status: Current every day smoker tobacco type: cigarettes second hand exposure: No alcohol intake: never substance use type: does not use caffeine: Yes ROS ROS ED ROS Narrative Left flank pain. No other symptoms. Constitutional Constitutional ED: Denies chills or fever(s) ENT ENT ED: Denies ear pain Cardiovascular Cardiovascular: Denies chest pain Respiratory/Chest Respiratory/Chest: Denies cough or dyspnea Gastrointestinal Gastrointestinal: Reports other Details: Left flank/posterior left rib cage pain. ; Denies abdominal pain Genitourinary Genitourinary ED: Denies dysuria or hematuria Musculoskeletal Musculoskeletal: Reports back pain; Denies arthralgias Integumentary Denies abscess Neurologic Neurologic: Denies headache(s) Psychiatric Psychiatric: Denies anxiety Endocrine Endocrinology: Denies polydipsia Hematologic/Lymphatic Hematologic/Lymphatic: Denies easy bleeding Allergic/Immunologic Allergic/Immunologic ED: Denies mouth swelling, tongue swelling or urticaria EXAM Physical Exam Narrative Exam Narrative: Well-appearing 64-year-old female. Vital signs stable afebrile. Accompanied byanother woman. No acute distress. H EENT exam pupils round react light. moistmucousmembranes. Neck nontender no lymphadenopathy. Lungs clear to auscultation bilaterally. Heart regular rhythm rate about 90 no murmur. Chest wall and ribs anteriorly nontender. Abdomen soft, nontender, nondistended, normal bowel sounds without peritoneal signs. Moving all 4 extremities. Nontender no edema. Normal strength. Normal range of motion. Back on place heis tender to the left posterior rib cage. There is no redness or warmth. No rash. No shingles. No bruising or signs of trauma. No crepitance. No CVA tenderness. Spine nontender. Neurologically she is awake alert. Answering questions following commands. Const Vital Signs: 10/28/24 18:46 10/28/24 20:46 Temperature 98.1 F Temperature Source Temporal Pulse Rate 93 82 Respiratory Rate 19 H Blood Pressure 165/81 H 113/79 Blood Pressure Mean 109 90 Pulse Ox 97 93 Oxygen Delivery Method Room Air Room Air Positive well nourished and well developed; Negative for cachectic, contracturesor unkempt General Appearance ED: well developed and NAD; Negative for unkempt, cachectic, contractures or pallor Nutritional Appearance: Negative for cachectic HEENT Reports moist mucous membranes normocephalic and atraumatic Eyes PERRL and EOMs intact bilaterally General Eye ED: Negative for pale conjunctiva Neck no lymphadenopathy, supple and no JVD Resp normal respiratory effort and clear to auscultation bilaterally Cardio regular rate, regular rhythm, S1 normal heart sound, S2 normal heart sound and no murmurs GI non-tender, non-distended and no masses GI Narrative: No abdominal pain. Inspection: Negative for abdominal distention Auscultation: normoactive bowel sounds Palpation: soft; Negative for tender, guarding, hernia, mass, pulsatile mass or rebound tenderness present Back/Spine no CVA tenderness Back/Spine Narrative: Left posterior rib cage tenderness. Normal appearance. No crepitance. No rash. General Back: Negative for CVA tenderness Cervical Spine: Negative for cervical spine tenderness Thoracic Spine / Upper Back: Negative for thoracic spinal tenderness Lumbar Spine / Lower Back: Negative for lumbar spinal tenderness Extremity full ROM General Extremety ED: Negative for edema or tenderness General Extremity: Negative for edema Neuro CN's II-XII intact bilaterally and moves all extremities Sensorium / Orientation: alert, oriented to person, oriented to place and oriented to time; Negative for orientation impaired or confused Motor Exam: strength 5/5 throughout Psych mental status grossly normal and thought process normal Appearance: Negative for unkempt Attitude: No agitated Mood & Affect: Negative for depressed, anxious or tearful Skin no wounds General Skin Exam: Negative for jaundice or pallor Lesions: no lesions Rashes: no rashes MDM MDM MDM Narrative Medical decision making narrative: 64-year-old female 2-day history of left flank pain. No prior history of kidneystone. This may be musculoskeletal. CAT scan and labs are being obtained. Shedid request some for pain to be given morphine and Zofran. Repeat exam patient is doing well at 9:30 PM. I think it is musculoskeletal left posterior rib cage pain. CAT scan labs are unremarkable otherwise exam is benign abdomen is nontender. Ice to the area. Motrin and Tylenol for pain. Outpatient follow-up as needed. History & Record Review Discussion w/independent historian: Patient Additional record(s) reviewed:: Prior inpatient record, Prior outpatient record,Prior ED visit and Prior labs Lab Data Attestation: I reviewed the patient's lab results. Lab results narrative: CBC white count 10.9. H&H 13 and 39. Platelets 479. Electrolytes show sodium 135. Gap 13. Normal BUN and creatinine. Glucose 125. Liver enzymes normal. Urinalysis negative. No white or red cells. No nitrites. Only rare bacteria. CAT scan no acute abnormality. No kidney stone. Labs: Laboratory Results - last 24 hr 10/28/24 10/28/24 19:02 19:10 WBC 10.9 RBC 4.17 L Hgb 13.4 Hct 39.7 MCV 95.2 MCH 32.1 H MCHC 33.8 RDW Std Deviation 45.4 H RDW Coeff of Jeanne 13.0 Plt Count 479 H MPV 8.6 Immature Gran % (Auto) 0.400 Neut % (Auto) 61.1 Lymph % (Auto) 28.2 [place] % (Auto) 7.1 Eos % (Auto) 2.3 Baso % (Auto) 0.9 Absolute Neuts (auto) 6.6 Absolute Lymphs (auto) 3.07 Nucleated RBC % 0 Sodium 135 Potassium 3.8 Chloride 97 L Carbon Dioxide 25.1 Anion Gap 13 BUN 13 Creatinine 1.06 Estim Creat Clear Calc 46.75 L Est GFR (MDRD) Non-Af 58 L BUN/Creatinine Ratio 12.3 Glucose 125 H Calcium 9.6 Total Bilirubin 0.20 AST 17 ALT 10 Alkaline Phosphatase 141 H Total Protein 7.6 Albumin 4.7 Globulin 2.8 Albumin/Globulin Ratio 1.7 Urine Color Straw Urine Clarity Clear Urine pH 6.5 Ur Specific [place] 1.010 Urine Protein Negative Urine Glucose (UA) Normal Urine Ketones Negative Urine Occult Blood Negative Urine Nitrite Negative Urine Bilirubin Negative Urine Urobilinogen Normal Ur Leukocyte Esterase Negative Urine RBC 0 SEEN Urine WBC 0 SEEN Ur Squamous Epith Cells 0-5 SEEN Urine Bacteria RARE Urine Mucus 0 SEEN Radiography Diagnostic Testing: Clinical Impression(s) from Imaging Studies Abdomen/Pelvis CT 10/28/24 19:56 IMPRESSION: No acute abdominopelvic finding. Reading Location: [facility] Discharge Plan Triage Chief Complaint: Flank Pain ED Provider: Abdirizak Perla Dx/Rx/DC Orders Clinical Impression: Back strain Instructions: ED Back Sprain/Strain Prescriptions: No Action lamotrigine 200 mg tablet 400 mg PO DAILY pantoprazole 40 mg tablet,delayed release (DR/EC) 40 mg PO DAILY Qty: 30 4RF benztropine 1 mg tablet 1 mg PO DAILY galantamine 16 mg capsule,ext rel. pellets 24 hr 16 mg PO DAILY Primary Care Provider: Jaswinder Muñiz Referrals: Jaswinder Muñiz MD [Primary Care Provider] - 3-5 Days if not improving Activity Restrictions/Additional Instructions: Hot shower, warm bath to the area. Ice. Motrin for pain and inflammation and Tylenol for pain. Your labs and CAT scan look good. I suspect you have a strained muscle between your rib cage and your back. This should progressively get better. Follow-up with your doctor if not. Print Language: Kazakh Disposition Disposition: Home, Self Care What to do if you have Problems For any increased pain, shortness of breath, bleeding, nausea or vomiting, chestpain, or any unexpected problems, contact your Primary Care Provider. Call [facility] ([phone]) or report to the closest Emergency Room. Call 911 if necessary. 10/28/241 <Electronically signed by Abdirizak Perla MD> Cosigner Signature (if applicable): CC: Dr. Jaswinder Muñiz MD ~ Signed [facility] Work Phone: [phone] Radiology Diagnostic study note [facility] Imaging Services [address], [place] [address] Low Dose CT Lung Screening MR#: [id number] Acct: [id number] Name: NAVIN AUGUST I Rep #: [id number] : 1960 F 64 From: Renee Mcknight MD PCP: Dr. Jaswinder Muñiz MD Status: REG CL I Study:Low Dose CT Lung Screening Date of Exam : 09/29/24 Exam# [id number] Ordering Dr: Aury Muñiz MD EXAM: CT [...] in 12 months is recommended. Reading Location: [facility] CC: Dr. Jaswinder Muñiz MD ~ Cylinder Inspector And Tester: Signed [facility]06-22-2023 Miscellaneous Notes* Telephone Encounter - Nelsy Chaudhari PA-C - 11/05/2022 1:55 PM EDT Noted. * Telephone Encounter - Liliana Graham RN - 11/05/2022 1:51 PM EDT Navin called to let us know that she is doing well without fentanyl patch and is not having pain atpresent She is pleased she no longer needs pain management and wanted to thank us for past treatment I did let her know to call us if she would need an appointment in the future Liliana Graham RN documented [facility]Cl[facility]23 Miscellaneous Notes* Telephone Encounter - Nelsy Chaudhari PA-C - 10/20/2022 3:13 PM EDT The following approved medication requests have been transmitted electronically. Requested Prescriptions Pending Prescriptions Disp Refills fentaNYL (DURAGESIC) 25 mcg/hr 15 Patch 0 Sig: Apply 1 Patch as directed every 48 hours for 30 days. Do not start before October 22, 2022. Nelsy Chauhdari PA-C * Telephone Encounter - Liliana Graham RN - 10/20/2022 2:54 PM EDT Patient phones requesting refills as follows: Requested Prescriptions Pending Prescriptions Disp Refills fentaNYL (DURAGESIC) 25 mcg/hr 15 Patch 0 Sig: Apply 1 Patch as directed every 48 hours for 30 days. Do not start before October 22, 2022. Please review and advise. Liliana Graham RN documented in this encounterClerm[facility]06-05-2023 Miscellaneous Notes* Telephone Encounter - Nelsy Chaudhari PA-C - 10/19/2022 8:29 AM EDT The following approved medication requests have been transmitted electronically. Requested Prescriptions Pending Prescriptions Disp Refills methocarbamol (ROBAXIN) 500 mg tablet [Pharmacy Med Name: METHOCARBAMOL 500 MG TABLET] 90 tablet 3 Sig: TAKE 1 TABLET BY MOUTH THREE TIMES A DAY NEEDED Nelsy Chaudhari PA-C * Telephone Encounter - Liliana Graham RN - 10/19/2022 7:49 AM EDT Requested Prescriptions Pending Prescriptions Disp Refills methocarbamol (ROBAXIN) 500 mg tablet [Pharmacy Med Name: METHOCARBAMOL 500 MG TABLET] 90 tablet 3 Sig: TAKE 1 TABLET BY MOUTH THREE TIMES A DAY NEEDED Please review and advise. Liliana Graham RN documented in this encounterClerm[facility]04-28-2023 NoteHNO ID: [id number] Author: Nelsy Chaudhari PA-C Service: ? Author Type: Physician Streetcar Dispatcher Type: Progress Notes Filed: 09/11/2022 2:24 PM Note Text: This note was created using Glow Digital Mediariter. Subjective Navin August is a 62 year [...] - Frequency Continuous Continuous Intervention/Comfort measure Medication;Relaxation;Cold;Heat Medication;Relaxation;Cold;Heat;Pillow support;Positioning Comments - - PAST MEDICAL HISTORY [...] Follow-up in office in (more content not included)...[facility] 08-12-2022 Miscellaneous Notes* Telephone Encounter - Nelsy Chaudhari PA-C - 08/12/2022 3:01 PM EDT The following approved medication requests have been transmitted electronically. Requested Prescriptions Pending Prescriptions Disp Refills fentaNYL 37.5 mcg/hour pt72 15 Patch 0 Sig: Apply 1 Patch as directed every 48 hours for 30 days. Do not start before August 18, 2022. Nelsy Chaudhari PA-C documented in this encounterClermont [facility] Hospital03-13-2023 Miscellaneous Notes* Telephone Encounter - Liliana Graham RN - 07/27/2022 1:56 PM EDT Arrived for UDS Completed In addition, brought fentanyl 50 mcg patches for count ( see AG SPINE PAIN COUNT) Count appropriate Liliana Graham RN July 27, 2022 2:00 PM documented in this encounterClermont County Hospital03-09-2023 NoteHNO ID: [id number] Author: Nelsy Chaudhari PA-C Service: ? Author Type: Physician Streetcar Dispatcher Type: Progress Notes Filed: 07/23/2022 2:48 PM Note Text: I have communicated my name and active licensure. The patient's identity and physical location were verified at the time of this visit. Either the patient or their legal senior sales representative has been informed of the risks and benefits of -- and alternatives to -- treatment through a remote evaluation and consents to proceed with the evaluation remotely. This note was created using [id number]. Subjective Navin August is a 62 year [...] Months - Frequency Intermittent Intermittent Intervention/Comfort measure Medication;Cold;Heat;Music;Rocking/holding Medication;Cold;Heat;Relaxation Comments - - PAST MEDICAL HISTORY [...] like a new order (more content not included)...[facility] 07-23-2022 Instructions* Patient Instructions* Nelsy Chaudhari PA-C - 07/23/2022 2:28 PM [...] seen at this time. documented in this encounterClermont [facility]03-09-2023 History of Present illness Narrative* Nelsy Chaudhari PA-C - 07/23/2022 2:15 PM EST I have communicated my name and active licensure. The patient's identity and physical location wereverified at the time of this visit. Either the patient or their legal senior sales representative has been informed of the risks and benefits of -- and alternatives to -- treatment through a remote evaluation andconsents to proceed with the evaluation remotely. This note was created using [id number]. Subjective Navin August is a 62 year [...] Months - Frequency Intermittent Intermittent Intervention/Comfort measure Medication;Cold;Heat;Music;Rocking/holding Medication;Cold;Heat;Relaxation Comments - - PAST MEDICAL HISTORY [...] G89.29 Nelsy Chaudhari PA-C documented in this encounterClermont [facility] Hospital03-01-2023 Miscellaneous Notes* Telephone Encounter - Nelsy Chaudhari PA-C - 07/15/2022 10:04 AM EST The following approved medication requests have been transmitted electronically. Requested Prescriptions Pending Prescriptions Disp Refills fentaNYL (DURAGESIC) 50 mcg/hr 15 Patch 0 Sig: APPLY 1 PATCH TO SKIN EVERY OTHER DAY DIRECTED Do not start before July 19, 2022. Nelsy Chaudhari PA-C * Telephone Encounter - Liliana Graham RN - 07/15/2022 9:25 AM EST Patient phones requesting refills as follows: Requested Prescriptions Pending Prescriptions Disp Refills fentaNYL (DURAGESIC) 50 mcg/hr 15 Patch 0 Sig: APPLY 1 PATCH TO SKIN EVERY OTHER DAY DIRECTED Do not start before July 19, 2022. Please review and advise. Liliana Graham RN documented in this encounterClermont [facility] Hospital01-26-2023 NoteHNO ID: [id number] Author: Nelsy Chaudhari PA-C Service: ? Author Type: Physician Streetcar Dispatcher Type: Progress Notes Filed: 06/11/2022 2:22 PM Note Text: This note was created using Glow Digital Mediariter. Subjective Navin August is a 62 year [...] - ICD9: 719.46, 338.29, ICD10: M25.569, G89.29 ANGIE [facility]01-26-2023 Instructions* Patient Instructions* PAKO MikeC - 06/11/2022 2:13 PM EST The [facility] [...] seen at this time. documented in this encounterClermont County Hospital01-26-2023 History of Present illness Narrative* Nelsy Chaudhari PA-C - 06/11/2022 2:00 PM EST This note was created using LocPlanetter. Subjective Navin August is a 62 year [...] Wednesday. They had her stop her clonazepam for2 weeks, but this hasn't helped. INTAKE PAIN [...] pain, joint pain/swelling, muscle cramps/weakness, stiffness, arthritis, restlesslegs, leg pain at night, and leg pain [...] G89.29 Nelsy Chaudhari PA-C documented in this encounterClermont County Hospital12-29-2022 Miscellaneous Notes* Telephone Encounter - Nelsy Chaudhari PA-C - 05/14/2022 11:42 AM EST The following approved medication requests have been transmitted electronically. Requested Prescriptions Pending Prescriptions Disp Refills fentaNYL (DURAGESIC) 50 mcg/hr 15 Patch 0 Sig: APPLY 1 PATCH TO SKIN EVERY OTHER DAY DIRECTED Do not start before May 20, 2022. Nelsy Chaudhari PA-C * Telephone Encounter - Liliana Graham RN - 05/14/2022 11:25 AM EST Patient phones requesting refills as follows: Requested Prescriptions Pending Prescriptions Disp Refills fentaNYL (DURAGESIC) 50 mcg/hr 15 Patch 0 Sig: APPLY 1 PATCH TO SKIN EVERY OTHER DAY DIRECTED Do not start before May 20, 2022. Please review and advise. Liliana Graham RN documented in this encounterClermont [facility] Hospital12-19-2022 NoteHNO ID: [id number] Author: Nelsy Chaudhari PA-C Service: ? Author Type: Physician Streetcar Dispatcher Type: Progress Notes Filed: 05/04/2022 3:11 PM Note Text: This note was created using Glow Digital Mediariter. Subjective Navin August is a 62 year [...] Hours Frequency Intermittent Intermittent Intervention/Comfort measure Medication;Relaxation;Cold;Heat Medication;Relaxation;Cold;Heat;Pillow support Comments - - PAST MEDICAL HISTORY [...] M25.569, G89.29 Nelsy Rutherford (more content not included)...[facility]12-19-2022 Instructions* Patient Instructions* Nelsy Chaudhari PA-C - 05/04/2022 2:56 PM [...] seen at this time. documented in this encounterClermont [facility] Hospital12-19-2022 History of Present illness Narrative* Nelsy Chaudhari PA-C - 05/04/2022 2:36 PM EST This note was created using Glow Digital Mediariter. Subjective Navin August is a 62 year [...] with her present analgesic therapy. She denies anyadverse effects. Since her previous visit, she denies any hospitalizations or ER visits. Otherwise,she has nothing further to discuss at this [...] Hours Frequency Intermittent Intermittent Intervention/Comfort measure Medication;Relaxation;Cold;Heat Medication;Relaxation;Cold;Heat;Pillowsupport Comments - - PAST MEDICAL HISTORY Diagnosis [...] pain/swelling, muscle cramps, stiffness, arthritis, restless legs andleg pain with exertion. Objective LMP 01/12/2008 Physical Exam Vitals and nursing note reviewed. Constitutional: Appearance: Normal appearance. She is well-developed, well-groomed and overweight. HENT: Head: Normocephalic and atraumatic. Right Ear: Hearing normal. Left Ear: Hearing normal. Eyes: Conjunctiva/sclera: Conjunctivae normal. Comments: Wearing glasses Musculoskeletal: Comments: She walks with a normal gait. There is tenderness to palpation in the cervical and lumbarregion and over the SI joints bilaterally. The [...] G89.29 Nelsy Chaudhari PA-C documented in this encounterClermont [facility] Hospital12-05-2022 Miscellaneous Notes* Telephone Encounter - Nelsy Chaudhari PA-C - 04/20/2022 9:57 AM EST The following approved medication requests have been transmitted electronically. Requested Prescriptions Pending Prescriptions Disp Refills fentaNYL (DURAGESIC) 50 mcg/hr 15 Patch 0 Sig: APPLY 1 PATCH TO SKIN EVERY OTHER DAY DIRECTED Nelsy Chaudhari PA-C * Telephone Encounter - Liliana Graham RN - 04/20/2022 9:19 AM EST Patient phones requesting refills as follows: Requested Prescriptions Pending Prescriptions Disp Refills fentaNYL (DURAGESIC) 50 mcg/hr 15 Patch 0 Sig: APPLY 1 PATCH TO SKIN EVERY OTHER DAY DIRECTED Please review and advise. Liliana Graham RN documented in this encounterClermont [facility] Hospital11-30-2022 Miscellaneous Notes* Telephone Encounter - Nelsy Chaudhari PA-C - 04/15/2022 11:47 AM EST The following approved medication requests have been transmitted electronically. Requested Prescriptions Pending Prescriptions Disp Refills fentaNYL (DURAGESIC) 50 mcg/hr 15 Patch 0 Sig: APPLY 1 PATCH TO SKIN EVERY OTHER DAY DIRECTED Do not start before April 18, 2022. Nelsy Chaudhari PA-C * Telephone Encounter - Liliana Graham RN - 04/15/2022 11:01 AM EST Patient phones requesting refills as follows: Requested Prescriptions Pending Prescriptions Disp Refills fentaNYL (DURAGESIC) 50 mcg/hr 15 Patch 0 Sig: APPLY 1 PATCH TO SKIN EVERY OTHER DAY DIRECTED Do not start before April 18, 2022. Please review and advise. Liliana Graham RN documented in this encounterClermont County Hospital11-07-2022 NoteHNO ID: [id number] Author: Nelsy Chaudhari PA-C Service: ? Author Type: Physician Streetcar Dispatcher Type: Progress Notes Filed: 03/23/2022 3:10 PM Note Text: This note was created using Glow Digital Mediariter. Subjective Navin August is a 62 year [...] Hours Hours Frequency Intermittent Intermittent Intervention/Comfort measure Medication;Relaxation;Cold;Heat;Pillow support;Positioning Medication;Relaxation;Cold;Heat;Pillow support;Positioning Comments - - HPI Review of [...] ICD9: 720.2, ICD10: M46.1 (more content not included)...[facility]11-07-2022 Instructions* Patient Instructions* Nelsy Chaudhari PA-C - 03/23/2022 3:04 PM [...] seen at this time. documented in this encounterClermont [facility] Hospital11-07-2022 History of Present illness Narrative* Nelsy Chaudhari PA-C - 03/23/2022 2:53 PM EST This note was created using Glow Digital Mediariter. Subjective Navin August is a 62 year [...] with her present analgesic therapy. She denies anyadverse effects. Since her previous visit, she denies any hospitalizations or ER visits. Otherwise,she has nothing further to discuss at this [...] Hours Hours Frequency Intermittent Intermittent Intervention/Comfort measure Medication;Relaxation;Cold;Heat;Pillow support;Positioning Medication;Relaxation;Cold;Heat;Pillow support;Positioning Comments - - HPI Review of [...] tenderness to palpation in the cervical and lumbarregion and over the SI joints bilaterally. The [...] G89.29 Nelsy Chaudhari PA-C documented in this encounterClermont County Hospital11-03-2022 Miscellaneous Notes* Telephone Encounter - Nelsy Chaudhari PA-C - 2022 3:14 PM EDT The following approved medication requests have been transmitted electronically. Requested Prescriptions Pending Prescriptions Disp Refills fentaNYL (DURAGESIC) 50 mcg/hr 15 Patch 0 Sig: APPLY 1 PATCH TO SKIN EVERY OTHER DAY DIRECTED Nelsy Chaudhari PA-C * Telephone Encounter - Liliana Graham RN - 2022 2:55 PM EDT Not available at [facility] in [place] Liliana Graham RN 2022 2:56 PM Requested Prescriptions Pending Prescriptions Disp Refills fentaNYL (DURAGESIC) 50 mcg/hr 15 Patch 0 Sig: APPLY 1 PATCH TO SKIN EVERY OTHER DAY DIRECTED Please review and advise. Liliana Graham RN documented in this encounterClermont [facility] Hospital09-26-2022 NoteHNO ID: [id number] Author: Nelsy Chaudhari PA-C Service: ? Author Type: Physician Streetcar Dispatcher Type: Progress Notes Filed: 02/09/2022 3:27 PM Note Text: This note was created using LocPlanetter. Subjective Navin August is a 61 year [...] - - Frequency Continuous Continuous Intervention/Comfort measure Medication;Relaxation;Heat;Cold;Pillow support;Positioning Medication;Relaxation;Cold;Heat;Pillow support;Positioning Comments - - HPI Review of [...] Sacroiliitis (HCC) - IC (more content not included)...[facility] 01-06-2022 Miscellaneous Notes* Telephone Encounter - Nelsy Chaudhari PA-C - 01/06/2022 1:48 PM EDT The following approved medication requests have been transmitted electronically. Requested Prescriptions Pending Prescriptions Disp Refills fentaNYL (DURAGESIC) 50 mcg/hr 15 Patch 0 Sig: APPLY 1 PATCH TO SKIN EVERY OTHER DAY DIRECTED Do not start before January 15, 2022. methocarbamol (ROBAXIN) 500 mg tablet 90 tablet 3 Sig: Take 1 tablet by mouth every 8 hours as needed. Nelsy Chaudhari PA-C * Telephone Encounter - Liliana Graham RN - 01/06/2022 1:10 PM EDT Patient phones requesting refills as follows: Requested [...] advise. Liliana Graham RN documented in this encounterClermont [facility] Hospital08-16-2022 Miscellaneous Notes* Telephone Encounter - Nelsy Chaudhari PA-C - 12/30/2021 11:02 AM EDT The following approved medication requests have been [...] before January 02, 2022. Nelsy Chaudhari PA-C * Telephone Encounter - Liliana Graham RN - 12/30/2021 10:17 AM EDT Patient phones requesting refills as follows: Requested [...] DIRECTED Liliana Graham RN documented in this encounterClermont County Hospital08-15-2022 NoteHNO ID: [id number] Author: Neftaly Coker MD Service: ? Author Type: Physician Type: Progress Notes Filed: 12/30/2021 3:33 PM Note Text: This note was created using Glow Digital Mediariter. Subjective Navin August is a 61 year [...] and may contain minor errors. Neftaly Coker [facility]08-12-2022 Nurse Progress note Patient informed of discharge. [...] want your help. Patient then went into [facility] to go down elevator. Redirected patient to stay on floor until daughter arrived. Daughter arrived a few minutes later in elevator with security and discharge paperwork reviewed with daughter. Patient and her daughter left ambulatory via elevator. Digitally Signed by Stephanie Hidalgo RN on 12/26/2021 03:25 PM [facility]08-12-2022 Note Discharge Instructions Thank you for allowing [facility] to assist you with your healthcare needs. The following is importantdischarge information regarding your hospital visit. Your Care Team Carmen Boyd SUPERVISOR METAL FURNITURE FABRICATION Your Diagnosis Hypo-osmolality and hyponatremia Bipolar disease, chronic Asthma Bronchitis, chronic Hypothyroid Fibromyalgia Anxiety Medical screening exam What to do next Follow Up Appointments Follow Up with WILL SNELL MD When Within 5 to 7 days Why: Message left for PCP office. Recheck BMP in 1 week. Where: [facility] [address] [place] [address] [address] [place] [address]- The Following Activity and Diet Have Been Ordered for You Discharge Activity - Ordered -- NO activity restrictions, 12/26/21 12:44:00 EDT Discharge Diet - Ordered -- Type of Diet: Regular Diet, 12/26/21 12:44:00 EDT The Following Treatments Have Been Ordered for You Discharge Labs Discharge Outpatient Labwork - Ordered -- BMP, hyponatremia, follow-up within: 1 week, Your appointment is: 01/01/22 12:00:00 EDT, resultsto Dr. Snell, 12/26/21 12:46:00 EDT Discharge Radiology [...] withyour home medications. What How Much When Why Instructions Last Dose Changed fentaNYL 50 Microgram Topical Every 48 hours prior to admission Changed fentaNYL (fentaNYL 50 mcg/ hr transdermal film) 1 patch(es) Transdermal Every 48 hours Fibromyalgia Duration: 4 Days Pickup at [id number] Unchanged acetaminophen (acetaminophen 325 mg oral capsule) [...] for muscle spasm 11 AM Pharmacy Information [id number]: [address], [place] [id number] [phone] Please take this list to your next [...] low. When salt becomes low, your cells takein extra water and puff up (swell). The [...] Document Reviewed: 01/13/2012 ExitCare Patient Information 2015 [employer] [facility]. This information is not intended to replace advicegiven to you by your health care provider. Make sure you discuss any questions you have with your health care provider. Additional Information VACCINATE! IT SAVES LIVES! Members of the community who have not yet received the COVID-19 vaccine and would like to receive it can visit one of [facility] vaccine clinics. There are many vaccine clinic locations within the [facility]. For locations and available times, please visit [email or web address] It is important to note that some COVID mobile vaccine clinics are held outdoors and may be canceled in rainy or stormy conditions. To learn more about pediatric vaccinations (ages 5-11), we invite you to visit the [facility] webpage. [email or web address] learn more about the COVID-19 vaccine, we invite you to visit the [facility] website for a list of frequently asked questions. [email or web address] [facility] [employer] Patient Portal Access Instructions: Stay connected with your healthcare team and access your personal medical information anytime with the [facility] Patient Portal.If you would like a full copy of your medical records, please contact the [facility] Medical Records Department, Wednesday through Wednesday between 8a.m. and 4:30p.m. Please follow the directions below to access the portal: 1.Access the email account you provided upon registration to the [facility].2.Look for an invitation email from [facility].3.Open the email and access the invitation link: Accept Invitation to [facility] One[facility]4.Fill in the required renner to create your account. Sign into www.Divide with your username and password that you [...] you will allow to register on the [facility] Patient Portal for access to your information. You can also access the [facility] Patient Portal on the [employer]. Simply click on Health Records under Overwolf and then click on the [employer] logo. HOW TO SAFELY DISPOSE OF PRESCRIPTION [...] Call your local pharmacy or go to [email or web address] to find one close to you.3.Make use of household items: Use cat litter or old coffee grounds to dispose medications if other options arenot available. Mix your drugs with these household products, seal them in an airtight container andthrow it into the garbage. Call [facility]: [phone] to be sure your drugs can be [...] CHART COPY. Signatures Patient Education Materials Hyponatremia, Qaxr-ju-Relc Medication Leaflets My discharge plan and instructions have been reviewed and explained to me and I,NAVIN AUGUST understand my current condition and have read and understand these discharge instructions. I have received a written copy of the plan/instructions. If I have questions, I am aware that I should contact my doctor. Patient/Financial Associate Signature: Date/Time: Relationship to Patient: Witness Name/Signature: Date/Time: [facility]08-12-2022 Hospital Discharge instructions Patient Education 12/26/2021 12:37:18 Hyponatremia, Zjkf-ww-Bypk Hyponatremia Hyponatremia is when the salt (sodium) in your blood is low. When salt becomes low, your cells takein extra water and puff up (swell). The [...] Document Reviewed: 01/13/2012 ExitCare Patient Information 2015 [employer]. This information is not intended to replace advicegiven to you by your health care provider. Make sure you discuss any questions you have with your health care provider. Follow Up Care 12/25/2021 09:58:36 With:WILL SNELL MD Address: ADULT GERIATR[facility]/[place] [facility] [address] [place] [address]- When:5 to 7 days Comments:Message left for PCP office. Recheck BMP in 1 week. [facility] 08-12-2022 Nurse Progress note Patient requesting COVID test. Spoke to [employer] and test was ordered. When patient was told how long the test would take she refused. Patient stated, I'm not waiting that long, I refuse. Digitally Signed by Katheryn Delgado LPN on 12/26/2021 01:36 PM [facility]08-11-2022 Note Date of Service 12/25/2021 Chief Complaint States that she is concerned that she has ammonia toxicity. History of Present Illness Patient is a 61-year-old female, who follows with Dr. Snell with a past medical history significant for bipolar disorder, asthma, fibromyalgia, and hypothyroidism, presents to [facility] emergency department with the chief complaint [...] Klonopin as it was not due to refilluntil tomorrow. She reportedly has not been able [...] pack)/day in last 30 days. Type: Cigarettes. Numberof years: 30. Previous treatment: Medications., 03/29/2019 Family [...] by CARMEN BOYD on 12/25/2021 04:34 PM [facility]08-11-2022 Evaluation + Plan noteExtracted from: Title:History and Physical Author:CARMEN BOYD Date:12/25/21 [...] Tests Pending * COVID-19 Only (AO) 12/26/21 [facility] 08-11-2022 Note ORIGINAL EXAMINATION: CT OF THE [...] Date: 12/25/2021 12:16:50 PM Ordering Provider: KRYSTAL MUÑOZ[address]11-2022 Note ORIGINAL EXAMINATION: ONE XRAY VIEW [...] Date: 12/25/2021 12:13:51 PM Ordering Provider: KRYSTAL ELY[address]11-2022 Note ORIGINAL EXAMINATION: ONE XRAY VIEW [...] Sign Date: 12/25/2021 12:13:51 PM Ordering Provider[facility] Note ORIGINAL EXAMINATION: CT OF THE HEAD [...] Date: 12/25/2021 12:16:50 PM Ordering Provider: [facility] Hospital Discharge instructions Patient Education 12/11/2021 20:39:48 [...] body part Frequent bruising for unknown reasons [id number] [employer]. [address] [place] [address], [place] [address]. All rights reserved. This information is not intended as a substitute for professional medical care. Always follow yourhealthcare professional's instructions. Follow Up Care 12/11/2021 19:44:25 With:WILL SNELL MD Address: ADULT GERIATRICS/[address] [place] [address]- When:2-4 days [facility] Gabrielashanelle Lazar 07-28-2022 Note Discharge Instructions Thank you for allowing Gabriela to assist you with your healthcare needs. [...] When Within 2-4 days Where: [facility]AT[facility]/[place] [address] [place] [address]- Allergies Levaquin (Tongue swelling) Neurontin (Rash) [...] body part Frequent bruising for unknown reasons [id number] [employer]. [address] [place] [address], [place] [address]. All rights reserved. This information is not intended as a substitute for professional medical care. Always follow yourhealthcare professional's instructions. Additional Information VACCINATE! IT SAVES LIVES! Members of the community who have not yet received the COVID-19 vaccine and would like to receive it can visit one of [facility] vaccine clinics. There are many vaccine clinic locations within the [facility]. For locations and available times, please visit [email or web address]. It is important to note that some COVID mobile vaccine clinics are held outdoors and may be canceled in rainy orstormy conditions. To learn more about pediatric vaccinations (ages 5-11), we invite you to visit the [facility] webpage. [email or web address] learn more about the COVID-19 vaccine, we invite you to visit the [facility] website for a list of frequently asked questions. [email or web address].pdf [facility] [employer] Patient Portal Access Instructions: Stay connected with your healthcare team and access your personal medical information anytime with the [facility] [employer] Patient Portal. If you would like a full copy of your medical records please contact the [facility] Medical Records Department Wednesday through Wednesday between 8a.m. and 4:30p.m. Please follow the directions below to access the portal: 1.Access the email account you provided upon registration to the [facility].2.Look for an invitation email from [facility].3.Open the email and access the invitation link: Accept Invitation to [employer]4.Fill in the required renner to create your account. Sign into www.Divide with your username and password that you [...] you will allow to register on the [facility] Patient Portal for access to your information. You can also access the [facility] Patient Portal on the [employer] livia. Simply click on Health Records under Overwolf and then click on the [employer] logo. HOW TO SAFELY DISPOSE OF PRESCRIPTION [...] Call your local pharmacy or go to [email or web address] to find one close to you.3.Make use of household items: Use cat litter or old coffee grounds to dispose medications if other options arenot available. Mix your drugs with these household products, seal them in an airtight container andthrow it into the garbage. Call [facility]: [phone] to be sure your drugs can be [...] aware that I should contact my doctor. Patient/Financial Associate Signature: Date/Time: Relationship to Patient: Witness Name/Signature: Date/Time: [facility]07-28-2022 Note ORIGINAL EXAMINATION: TWO XRAY [...] 12/11/2021 8:34:16 PM Ordering Provider: BALDOMERO HEAD [facility]07-28-2022 Note ORIGINAL EXAMINATION: TWO XRAY [...] Date: 12/11/2021 8:34:16 PM Ordering Provider: [facility]07-15-2022 Miscellaneous Notes* Telephone Encounter - Liliana Graham RN - 11/28/2021 2:33 PM EDT Patient phones requesting refills as follows: Pending Prescriptions Disp Refills FENTANYL 50 MCG/HR TRANSDERMAL PATCH 15 Patch 0 Sig: APPLY 1 PATCH TO SKIN EVERY OTHER DAY DIRECTED Do not start before November 30, 2021. JOAQUIN Class: C-II BRENDA: No Please review and advise. Liliana Graham RN [facility] Miscellaneous Notes* Telephone Encounter - Liliana Graham RN - 11/28/2021 10:46 AM EDT Patient phones requesting refills as follows: Pending Prescriptions Disp Refills FENTANYL 50 MCG/HR TRANSDERMAL PATCH 15 Patch 0 Sig: APPLY 1 PATCH TO SKIN EVERY OTHER DAY DIRECTED Do not start before November 30, 2021. JOAQUIN Class: C-II BRENDA: No Please review and advise. Liliana Graham RN [facility] Hospital Discharge instructions Patient Education [...] foods again, start with small amounts of gvpq-hq-csiwcg, low- fat foods. These include apple sauce, [...] increase stomach acid. Don't use aspirin or euqn-ert-ijkffvr pain and fever medicines, if possible. This includes nonsteroidal anti-inflammatory drugs (NSAIDs). Lose excess weight. Finish eating at least 2 hours before you go to bed or lie down. Raise the head of your bed. [id number] [employer]. [address] [place] [address]. All rights reserved. This information is not intended as a substitute for professional medical care. Always follow yourhealthcare professional's instructions. Follow Up Care 10/20/2021 14:48:46 With:WILL SNELL MD Address: ADULT GERIATRICS/[address] [place] [address]- When:2-4 days [facility] 06-06-2022 Evaluation + Plan note Diagnostic Tests Pending * Urinalysis 10/20/21 [facility] 2022 Hospital Discharge instructions Patient Education 08/01/2021 [...] teeth? Are you happy with your smile? [id number] [employer]. [address] [place] [address]. All rights reserved. This information is not intended as a substitute for professional medical care. Always follow yourhealthcare professional's instructions. Follow Up Care 08/01/2021 21:40:00 With:WILL SNELL MD Address[facility] [facility] [address] [facility] [address] [place] [address]- When:2-4 days [facility] 09-16-2015 History of Past illness Narrative* Problem Noted Date Resolved Date Chronic back pain 01/30/2015 12/29/2021 Pain in joint, lower leg 01/01/2008 022 Abnormal weight gain 05/19/2007 01/15/2010 Lumbago 12/29/2021 documented as of this encounter (statuses as of 12/30/2021) [facility] History of Past illness Narrative* Problem Noted Date Resolved Date Chronic back pain 01/30/2015 12/29/2021 Pain in joint, lower leg 01/01/2008 022 Abnormal weight gain 05/19/2007 01/15/2010 Lumbago 12/29/2021 documented as of this encounter (statuses as of 01/06/2022) [address]16-2015 History of Past illness Narrative* Problem Noted Date Resolved Date Chronic back pain 01/30/2015 12/29/2021 Pain in joint, lower leg 01/01/2008 022 Abnormal weight gain 05/19/2007 01/15/2010 Lumbago 12/29/2021 documented as of this encounter (statuses as of 2022) [address]16-2015 History of Past illness Narrative* Problem Noted Date Resolved Date Chronic back pain 01/30/2015 12/29/2021 Pain in joint, lower leg 01/01/2008 022 Abnormal weight gain 05/19/2007 01/15/2010 Lumbago 12/29/2021 documented as of this encounter (statuses as of 03/23/2022) [address]16-2015 History of Past illness Narrative* Problem Noted Date Resolved Date Chronic back pain 01/30/2015 12/29/2021 Pain in joint, lower leg 01/01/2008 022 Abnormal weight gain 05/19/2007 01/15/2010 Lumbago 12/29/2021 documented as of this encounter (statuses as of 04/15/2022) [address]16-2015 History of Past illness Narrative* Problem Noted Date Resolved Date Chronic back pain 01/30/2015 12/29/2021 Pain in joint, lower leg 01/01/2008 022 Abnormal weight gain 05/19/2007 01/15/2010 Lumbago 12/29/2021 documented as of this encounter (statuses as of 04/20/2022) [address]16-2015 History of Past illness Narrative* Problem Noted Date Resolved Date Chronic back pain 01/30/2015 12/29/2021 Pain in joint, lower leg 01/01/2008 022 Abnormal weight gain 05/19/2007 01/15/2010 Lumbago 12/29/2021 documented as of this encounter (statuses as of 05/04/2022) [address]16-2015 History of Past illness Narrative* Problem Noted Date Resolved Date Chronic back pain 01/30/2015 12/29/2021 Pain in joint, lower leg 01/01/2008 022 Abnormal weight gain 05/19/2007 01/15/2010 Lumbago 12/29/2021 documented as of this encounter (statuses as of 05/20/2022) [address]16-2015 History of Past illness Narrative* Problem Noted Date Resolved Date Chronic back pain 01/30/2015 12/29/2021 Pain in joint, lower leg 01/01/2008 022 Abnormal weight gain 05/19/2007 01/15/2010 Lumbago 12/29/2021 documented as of this encounter (statuses as of 06/11/2022) [facility] of [facility] illness Narrative* Problem Noted Date Resolved Date Chronic back pain 01/30/2015 12/29/2021 Pain in joint, lower leg 01/01/2008 022 Abnormal weight gain 05/19/2007 01/15/2010 Lumbago 12/29/2021 documented as of this encounter (statuses as of 07/15/2022) [facility] of Past illness Narrative* Problem Noted Date Resolved Date Chronic back pain 01/30/2015 12/29/2021 Pain in joint, lower leg 01/01/2008 022 Abnormal weight gain 05/19/2007 01/15/2010 Lumbago 12/29/2021 documented as of this encounter (statuses as of 07/23/2022) [facility] of [facility] illness Narrative* Problem Noted Date Resolved Date Chronic back pain 01/30/2015 12/29/2021 Pain in joint, lower leg 01/01/2008 022 Abnormal weight gain 05/19/2007 01/15/2010 Lumbago 12/29/2021 documented as of this encounter (statuses as of 07/28/2022) [facility] of [facility] illness Narrative* Problem Noted Date Resolved Date Chronic back pain 01/30/2015 12/29/2021 Pain in joint, lower leg 01/01/2008 022 Abnormal weight gain 05/19/2007 01/15/2010 Lumbago 12/29/2021 documented as of this encounter (statuses as of 08/12/2022) [place] [address]-16-2015 History of Past illness Narrative* Problem Noted Date Resolved Date Chronic back pain 01/30/2015 12/29/2021 Pain in joint, lower leg 01/01/2008 022 Abnormal weight gain 05/19/2007 01/15/2010 Lumbago 12/29/2021 documented as of this encounter (statuses as of 10/19/2022) [facility] of [facility] illness Narrative* Problem Noted Date Resolved Date Chronic back pain 01/30/2015 12/29/2021 Pain in joint, lower leg 01/01/2008 022 Abnormal weight gain 05/19/2007 01/15/2010 Lumbago 12/29/2021 documented as of this encounter (statuses as of 10/21/2022) [facility] of [facility] illness Narrative* Problem Noted Date Resolved Date Chronic back pain 01/30/2015 12/29/2021 Pain in joint, lower leg 01/01/2008 022 Abnormal weight gain 05/19/2007 01/15/2010 Lumbago 12/29/2021 documented as of this encounter (statuses as of 11/05/2022) [facility] of [facility] illness Narrative* Problem Noted Date Resolved Date Abnormal weight gain 05/19/2007 01/15/2010 documented as of this encounter (statuses as of 09/02/2021) [facility] of [facility] illness Narrative* Problem Noted Date Resolved Date Abnormal weight gain 05/19/2007 01/15/2010 documented as of this encounter (statuses as of 10/15/2021) [facility] of [facility] illness Narrative* Problem Noted Date Resolved Date Abnormal weight gain 05/19/2007 01/15/2010 documented as of this encounter (statuses as of 11/28/2021) [facility] of [facility] illness Narrative* Problem Noted Date Resolved Date Abnormal weight gain 05/19/2007 01/15/2010 documented as of this encounter (statuses as of 11/28/2021) [facility] No data available for this section [facility] Evaluation note* Diagnosis Degeneration of cervical intervertebral disc- Primary [facility] Diagnosis Degeneration of cervical intervertebral disc [facility]* Diagnosis Degeneration of cervical intervertebral disc [facility] Diagnosis Degeneration of cervical intervertebral disc [facility]* Diagnosis Degeneration of cervical intervertebral disc [facility]* Diagnosis Fibromyalgia- Primary Mylagia and myositis, unspecified Degeneration of intervertebral disc of lumbar region Lumbar spondylosis Lumbosacral spondylosis without myelopathy Sacroiliitis (HCC) Sacroiliitis, not elsewhere classified Degeneration of intervertebral disc of cervical region Chronic knee pain, unspecified laterality documented in this encounter [facility] noteNo assessment information availableWPike Community Hospital Work Phone: Evaluation note* Diagnosis Degeneration of cervical intervertebral disc [facility] encounter [facility]* Diagnosis Fibromyalgia- Primary Mylagia and myositis, unspecified Degeneration of intervertebral disc of lumbar region Lumbar spondylosis Lumbosacral spondylosis without myelopathy Sacroiliitis (HCC) Sacroiliitis, not elsewhere classified Degeneration of intervertebral disc of cervical region Chronic knee pain, unspecified laterality documented in this encounter [facility]* Diagnosis Degeneration of cervical intervertebral disc [facility]* Diagnosis Degeneration of cervical intervertebral disc- Primary Fibromyalgia Mylagia and myositis, unspecified Degeneration of intervertebral disc of lumbar region Lumbar spondylosis Lumbosacral spondylosis without myelopathy Sacroiliitis (HCC) Sacroiliitis, not elsewhere classified Chronic knee pain, unspecified laterality documented in this encounter [facility]* Diagnosis Fibromyalgia- Primary Mylagia and myositis, unspecified Degeneration of intervertebral disc of lumbar region Lumbar spondylosis Lumbosacral spondylosis without myelopathy Degeneration of cervical intervertebral disc Sacroiliitis (HCC) Sacroiliitis, not elsewhere classified Chronic knee pain, unspecified laterality documented in this encounter [facility]* Diagnosis Degeneration of intervertebral disc of lumbar region documented [facility] encounter [facility]* Diagnosis Fibromyalgia Mylagia and myositis, unspecified documented in this encounter [facility]* Diagnosis Degeneration of intervertebral disc of lumbar region [facility] Additional Instructions Hot shower, warm bath to the area. Ice. Motrin for pain and inflammation and Tylenol for pain. Your labs and CAT scan look good. I suspect you have a strained muscle between your rib cage and your back. This should progressively get better. Follow-up with your doctor if not.[facility] Work Phone: Progress note No data available for this section [facility] Reason for referral (narrative)No reason for referral information availableWPike Community Hospital Work Phone: Summary Purpose Family History [...] No September 06, 2020 9:35am Power of Machine Assembler No September 06 9:35am Advance Directive Response Recorded Date/ Time Living Will No September 06, 2020 10:35am Power of Machine Assembler No September 06 10:35am Advance Directive Response Recorded Date/ Time Living Will No April 25, 2 023 3:44pm Power of Machine Assembler No April 25, 2023 3:44pm Advance Directive Response Recorded Date/ Time Living Will No April 25, 2 023 4:44pm Power of Machine Assembler No April 25, 2023 4:44pm Advance Directive Response Recorded Date/ Time Do you have a Healthcare Power of Machine Assembler? No October 28, 2024 7:17pm Chief Complaint and Reason for Visit Chief [...] Date SCREENING September 29, 2024 6:33p m Chief Complaint Admit Date SCREENING September 29, 2024 6:33p m FLANK PAIN October 28, 2024 6:46 pm Additional Source Comments INFORMATION SOURCE (unrecogn ized section and content) DATE CREATED [facility] [facility] [place] DATE CREATED AUTHOR AUTHOR'S ORGANIZ ATION 12/29/2021 [facility] DATE CREATED AUTHOR AUTHOR'S ORGANIZ ATION 10/25/2022 [facility] DATE CREATED AUTHOR AUTHOR'S ORGANIZ ATION 11/06/2022 [facility] DATE CREATED AUTHOR AUTHOR'S ORGANIZ ATION 11/05/2024 [facility] Source Comments (unrecognize d section and content) In the event this informatio n is protected by the Federal Confidentiality of Alcohol and Drug Abuse Patient Records regulations: The Federal rules restrict any use of the information to criminally investigate or prosecute any alcohol or drug abuse patient.[facility] the event this information is protected by the Federal Confidentiality of Alcohol and Drug Abuse Patient Records regulations: The Federal rules restrict any use of the information to criminally investigate or prosecute any alcohol or drug abuse patient.[facility] the event this information is protected by the Federal Confidentiality of Alcohol and Drug Abuse Patient Records regulations: The Federal rules restrict any use of the information to criminally investigate or prosecute any alcohol or drug abuse patient.[facility] HospitalIn the event this information is protected by the Federal Confidentiality of Alcohol and Drug Abuse Patient Records regulations: The Federal rules restrict any use of the information to criminally investigate or prosecute any alcohol or drug abuse patient.[facility] HospitalIn the event this information is protected by the Federal Confidentiality of Alcohol and Drug Abuse Patient Records regulations: The Federal rules restrict any use of the information to criminally investigate or prosecute any alcohol or drug abuse patient.[facility] HospitalIn the event this information is protected by the Federal Confidentiality of Alcohol and Drug Abuse Patient Records regulations: The Federal rules restrict any use of the information to criminally investigate or prosecute any alcohol or drug abuse patient.[facility] HospitalIn the event this information is protected by the Federal Confidentiality of Alcohol and Drug Abuse Patient Records regulations: The Federal rules restrict any use of the information to criminally investigate or prosecute any alcohol or drug abuse patient.[facility] HospitalIn the event this information is protected by the Federal Confidentiality of Alcohol and Drug Abuse Patient Records regulations: The Federal rules restrict any use of the information to criminally investigate or prosecute any alcohol or drug abuse patient.[facility] HospitalIn the event this information is protected by the Federal Confidentiality of Alcohol and Drug Abuse Patient Records regulations: The Federal rules restrict any use of the information to criminally investigate or prosecute any alcohol or drug abuse patient.[facility] HospitalIn the event this information is protected by the Federal Confidentiality of Alcohol and Drug Abuse Patient Records regulations: The Federal rules restrict any use of the information to criminally investigate or prosecute any alcohol or drug abuse patient.[facility] HospitalIn the event this information is protected by the Federal Confidentiality of Alcohol and Drug Abuse Patient Records regulations: The Federal rules restrict any use of the information to criminally investigate or prosecute any alcohol or drug abuse patient.[facility] HospitalIn the event this information is protected by the Federal Confidentiality of Alcohol and Drug Abuse Patient Records regulations: The Federal rules restrict any use of the information to criminally investigate or prosecute any alcohol or drug abuse patient.[facility] HospitalIn the event this information is protected by the Federal Confidentiality of Alcohol and Drug Abuse Patient Records regulations: The Federal rules restrict any use of the information to criminally investigate or prosecute any alcohol or drug abuse patient.[facility] HospitalIn the event this information is protected by the Federal Confidentiality of Alcohol and Drug Abuse Patient Records regulations: The Federal rules restrict any use of the information to criminally investigate or prosecute any alcohol or drug abuse patient.[facility] HospitalIn the event this information is protected by the Federal Confidentiality of Alcohol and Drug Abuse Patient Records regulations: The Federal rules restrict any use of the information to criminally investigate or prosecute any alcohol or drug abuse patient.[facility] HospitalIn the event this information is protected by the Federal Confidentiality of Alcohol and Drug Abuse Patient Records regulations: The Federal rules restrict any use of the information to criminally investigate or prosecute any alcohol or drug abuse patient.[facility] HospitalIn the event this information is protected by the Federal Confidentiality of Alcohol and Drug Abuse Patient Records regulations: The Federal rules restrict any use of the information to criminally investigate or prosecute any alcohol or drug abuse patient.[facility] the event this information is protected by the Federal Confidentiality of Alcohol and Drug Abuse Patient Records regulations: The Federal rules restrict any use of the information to criminally investigate or prosecute any alcohol or drug abuse patient.[facility] the event this information is protected by the Federal Confidentiality of Alcohol and Drug Abuse Patient Records regulations: The Federal rules restrict any use of the information to criminally investigate or prosecute any alcohol or drug abuse patient.[facility] the event this information is protected by the Federal Confidentiality of Alcohol and Drug Abuse Patient Records regulations: The Federal rules restrict any use of the information to criminally investigate or prosecute any alcohol or drug abuse patient.[facility] Care Teams (unrecognized sec tion and content) [employer] Law Clerk Relationship Specialty Start Date End Date Channing, Yobany Chi PCP - General Family Practice 11/20/11 [employer] Law Clerk Relationship Specialty Start Date End Date Channing, Yobany Chi PCP - General Family Practice 11/20/11 [employer] Law Clerk Relationship Specialty Start Date End Date Channing, Yobany Chi PCP - General Family Practice 11/20/11 [employer] Law Clerk Relationship Specialty Start Date End Date Channing, Yobany Chi PCP - General Family Practice 11/20/11 [employer] Law Clerk Relationship Specialty Start Date End Date Channing, Yobany Chi PCP - General Family Practice 11/20/11 [employer] Law Clerk Relationship Specialty Start Date End Date Channing, Yobany Chi PCP - General Family Medicine 11/20/11 [employer] Law Clerk Relationship Specialty Start Date End Date Channing, Yobany Chi PCP - General Family Medicine 11/20/11 [employer] Law Clerk Relationship Specialty Start Date End Date Channing, Yobany Chi PCP - General Family Medicine 11/20/11 [employer] Law Clerk Relationship Specialty Start Date End Date Channing, Yobany Chi PCP - General Family Medicine 11/20/11 [employer] Law Clerk Relationship Specialty Start Date End Date Channing, Yobany Chi PCP - General Family Medicine 11/20/11 [employer] Law Clerk Relationship Specialty Start Date End Date Channing, [...] Dr. Yobany Snell MD Primary Care Provi marcelino, Attending Provider, Referring Provider Active [employer] Law Clerk Relationship Specialty Start Date End Date Channing, Yobany Chi PCP - General Family Medicine 11/20/11 [employer] Law Clerk Relationship Specialty Start Date End Date Channing, Yobany Chi PCP - General Family Medicine 11/20/11 [employer] Law Clerk Relationship Specialty Start Date End Date Channing, Yobany Chi PCP - General Family Medicine 11/20/11 [employer] Law Clerk Relationship Specialty Start Date End Date Channing, Yobany Chi PCP - General Family Medicine 11/20/11 [employer] Law Clerk Relationship Specialty Start Date End Date Channing, Yobany Chi PCP - General Family Medicine 11/20/11 [employer] Law Clerk Relationship Specialty Start Date End Date Yobany Snell Chi PCP - General Family Medicine 11/20/11 Team Status: Inactive Member Role Status Dates Dr. Yobany Snell MD Primary Care Provi marcelino, Attending Provider, Referring Provider Active Team Status: [...] 2024 Team Status: Active Member Role Status Kaylen Muñiz MD Primary Care Provider Active Team Status: Inactive Member Role Status Kaylen Muñiz MD Primary Care Provider Active St art: September 04, 2024 End: September 04, 2024 Jaswinder Muñiz MD Attending Provider Active Start : September 04, 2024 End: September 04, 2024 Jaswinder Muñiz MD Referring Provider Active Start : September 04, 2024 End: September 04, 2024 Team Status: Inactive Member Role Status Kaylen Muñiz MD Primary Care Provider Active St art: September 29, 2024 End: September 29, 2024 Jaswinder Muñiz MD Attending Provider Active Start : September 29, 2024 End: September 29, 2024 Jaswinder Muñiz MD Referring Provider Active Start : September 29, 2024 End: September 29, 2024 Team Status: Inactive Member Role Status Kaylen Muñiz MD Primary Care Provider Active St art: October 28, 2024 End: October 28, 2024 Dr. Abdirizak Perla MD Emergency Provider Active S tart: October 28, 2024 End: October 28, 2024 Reason for Visit (unrecogniz ed section [...] Role: Primary Care Physician Address: Address: [facility] [place] [address]- Care Team Related Persons Name: NONE, Care Team Personnel Name: WILL SNELL MD Member Role: Primary Care Physician Address: Address: [facility] Care Team Related Persons Name: NONE, [...] BE BASED ON THE PRIMARY CLINICAL RECORDS. [facility] [employer] [facility]. provides no warranty or guarantee of the accuracy or completeness of information in this document.
--- OUTSIDE RECORDS SUMMARY | 2024-11-18 06:23 | XMS RPT_ITS | CCD ---
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 Yobany Paz Primary Care Provider [phone] Dr. Yobany Snell MD, Chi Attending Provider [phone] Dr. Yobany Snell MD, Chi Primary Care Provider [phone] Channing PATEL, Dr. Yobany Paz Attending Provider Jaswinder Muñiz MD Primary Care Provider Jaswinder Muñiz MD Attending Provider Jaswinder Muñiz MD Referring Provider Dr. Abdirizak Perla MD Emergency Provider Channing, Yobany Chi Primary Care Unavailable Channing, [...] gabapentin; Translations: [gabapentin] Drug Allergy 01-31-2013 Rash [facility] Work Phone: (4 sources) levoFLOXacin; Translations: [levofloxacin] Drug Allergy Tongue swelling [facility] Work Phone: Medications Current Medications Medication Drug Class(es) Dates Sig (Normalized) Sig (Original) acetaminophen 325 mg oral capsule (4 sources) Start: 08-24-2018 acetaminophen 325 mg oral capsule Dose : 650 mg =, Oral, q6h, PRN Pain, scale 1-3, # 20 cap(s), 0 Refill(s), Pharmacy: [facility]/pharmacy #[id number] Start Date: 08/24/18 Status: Ordered benztropine mesylate [...] 07-19-2015 FENTANYL 50 MC G/HR PT72 FENTANYL [id number] [facility] [place]: 07-19-2015 FENTANYL 75 MCG/HR PT72 ever y 72 hrs FENTANYL [id number] [facility] [place] Comment on above: APPLY 1 [...] BID, # 1 EA, 0 Refill(s), Pharmacy: [id number] 152.4, cm, 10/03/19 13:39:00 EDT, Height, kg, 10/03/19 13:39:00 EDT, Dosing Weight Start Date: 10/03/19 Status: Ordered 120 actuat fluticasone propionate 0.11 mg/actuat metered dose inhaler (2 sources) Corticosteroid Start: 10-03-19 take 1 puff(s) by inhalation twice daily Flovent HFA 110 mcg/inh inhalation aerosol See Instructions, 1 puff(s) Inhalation BID, # 1 EA, 0 Refill(s), Pharmacy: [id number] 152.4, cm, 10/03/19 13:39:00 [...] Start: 02-06-2020 take 2 tablets by mo [facility] once daily Lamotrigine 200 mg tablet Active 400 mg PO DAILY August 26, 2020 12:00am Start: 02-06-2020 take 200 mg by mouth twice daily Lamotrigine Active 200 MG PO TWICE A DAY August 25, 2020 11:00pm Start: 07-19-2015 LAMOTRIGINE 20 0 MG TABS daily LAMOTRIGINE [id number] [facility] [place] Start: 03-08-2015 End: 08-26-2020 Lamotrigine [...] TABS One tablet by mouth daily LAMOTRIGINE [id number] [facility] [place] Comment on above: Take 50 [...] LEVOTHYROXINE SODIUM 50 MCG TABS LEVOTHYROXINE SODIUM [id number] [facility] [place] Start: 03-08-2015 End: 04-25-2023 take [...] Start: 07-19-2015 PERCOCET 5-325 MG TABS OXYCODONE-ACETAMINOPHEN [id number] [facility] Comment on above: Take 1 [...] tablet by mouth three times daily CLONAZEPAM [id number] [facility] Comment on above: Take one(1) [...] by mouth daily 600mg DULOXETINE HCL CPEP [id number] [facility] [place]: 07-19-2015 take 1 tablet by mouth once daily CYMBALTA CPEP One tablet by mouth daily 300mg DULOXETINE HCL CPEP [id number] [facility] [place] take 1 tablet by vivien th once daily CYMBALTA CPEP One tablet by mouth daily 300mg DULOXETINE HCL CPEP [id number] Poppy [place] take 1 tablet by vivien th once daily CYMBALTA CPEP One tablet by mouth daily 600mg DULOXETINE HCL CPEP [id number] Poppy [place] Comment on above: Take two [...] One tablet by mouth twice daily GABAPENTIN [id number] [facility] [place] hydrOXYzine hydrochloride 25 mg [...] Anticholinergic Start: 08-27-19 End: 04-25-20 23 Ipratropium [place] 42 mcg (0.06 %) spray,non-aerosol Discontinued 1 NMA INTRANASAL DAILY August 26, 2020 12:00am April 25, 2023 4:49pm Start: 08-26-2020 End: 04-25-2023 Ipratropium [place] Disconti nued 1 SPRAY INTRANASAL DAILY August [...] 07-19-2015 LINZESS 145 MCG CAPS daily LINACLOTIDE [id number] [facility] [place] meloxicam 7.5 mg oral tablet [...] hydrochloride 10 mg oral tablet (3 sources) N-hkmolz-E-aspartat e Receptor Antagonist take 1 tablet by [...] MEQ CR-CAPS 1 twice daily POTASSIUM CHLORIDE [id number] [facility] [place] Start: 03-08-2015 End: 08-26-2020 take 1 tablet by mouth twice daily Potassium Chloride 10 MEQ tablet Discontinued 10 meq PO TWICE A DAY March 08, 2015 12:00am August 26, 2020 2:36pm rOPINIRole 0.5 mg oral tablet (2 sources) Nonergot Dopamine Agonist Start: 07-19-2015 ROPINIROLE HCL 0.5 MG TABS every night ROPINIROLE HCL [id number] [facility] [place] sertraline 50 mg oral tablet [...] 25, 2023 4:48pm take 1 capsule by [facility] every eight hours as needed tiZANidine HCl [...] TRAMADOL HCL 50 MG TABS TRAMADOL HCL [id number] [facility] [place] varenicline 1 mg oral tablet (2 sources) Partial Cholinergic Nicotinic Agonist Start: 07-19-2015 CHANTIX 1 MG TABS 1 twice daily VARENICLINE TARTRATE [id number] [facility] [place] Problems Active Problems Problem Classification [...] current use of drug therapy; Translations: [Other halfway (current) drug therapy] Onset: 11-21-2018 11-26-2021 Episodic Other aftercare (1 source) Other halfway (current) drug therapy; Translations: [Other halfway (current) drug therapy] Onset: 11-26-2021 Episodic Other [...] without Conto n 10-28-2024 Abdomen/Pelvis without Cont [facility] [place] [address] Abdomen/Pelvis without Cont MR#: [id number] Acct: [id number] Name: NAVIN AUGUST I Rep #: [id number] : 1960 F 64 From: Mariaelena Vazquez nd, MD PCP: Dr. Jaswinder Muñiz MD Status: REG ER Study: Abdomen/Pelvis without Cont Date of Exam: 10/15 09/08 Exam# [id number] Ordering Dr: Abdirizak Perla MD PROCEDURE: ABDOMEN/PELVIS [...] IMPRESSION: No acute abdominopelvic finding. Reading Location: [id number] CC: Dr. Jaswinder Muñiz MD; Dr. Abdirizak Perla MD Metal Mockup Maker: Signed Normal [facility] Absolute lymphocyte countOrd ered By: ED PROVIDER on 10-28-2024 Lymphocytes Auto (Unsp spec) [#/Vol] 3.07 10*3/uL 0.83-4.51 [facility] Absolute neutrophil countOrd ered By: ED PROVIDER on 10-28-2024 Neutrophils (Bld) [#/Vol] 6.6 10*3/uL 2.0-7.7 [facility] Anion gap in Serum or Plasma Ordered By: Abdirizak Perla on 10-28-2024 Anion gap [Moles/Vol] 13 mmol/L 5- [facility] Automated lymphocyte count a s percentage of total leukocytesOrdered By: ED PROVIDER on 10-28-2024 Lymphocytes/100 WBC Auto (Unsp spec) 28.2 % - [facility] BUN/creatinine ratioOrdered By: Abdirizak Perla on 10-28-2024 Urea nitrogen/Creatinine [Mass ratio] 12.3 mg/mg 10- [facility] Basophil percentageOrdered B y: ED PROVIDER on 10-28-2024 Basophils/100 WBC (Bld) 0.9 % 0-1 [facility] Bilirubin Test strip Ql (U)O rdered By: ED PROVIDER on 10-28-2024 Bilirubin Ql (U) Negative Negative [facility] Bilirubin, totalOrdered By: Abdirizak Perla on 10-28-2024 Bilirubin [Mass/Vol] 0.20 mg/dL 0.00-1.30 [facility] CBC W/Diff, Automatedon 10-15 Absolute Lymph 3.07 X10 3/uL Normal 0.83-4.51 [facility] Comment on above: Performed By: #### L 500.4050, L100.0100 #### [facility] [address] [place], [address] Absolute Neut 6.6 X10 3/uL Normal 2.0-7.7 [facility] Comment on above: Performed By: #### L 500.4050, L100.0100 #### [facility] [address] [place], [address] Basophils/100 WBC (Bld) 0.9 % Normal 0-1 [facility] Comment on above: Performed By: #### L 500.4050, L100.0100 #### [facility] [address] [place], [address] Eosinophils/100 WBC (Bld) 2.3 % Normal 0-5 [facility] Comment on above: Performed By: #### L 500.4050, L100.0100 #### [facility] [address] [place], [address] Erythrocyte distribution width (RBC) [Ratio] 13.0 % Normal 11.6-14.6 [facility] Comment on above: Performed By: #### L 500.4050, L100.0100 #### [facility] [address] [place], [address] Hematocrit (Bld) [Volume fraction] 39.7 % Normal 37-47 [facility] Comment on above: Performed By: #### L 500.4050, L100.0100 #### [facility] [address] [place], [address] Hemoglobin (Bld) [Mass/Vol] 13.4 g/dL Normal 12.0-15.0 [facility] Comment on above: Performed By: #### L 500.4050, L100.0100 #### [facility] [address] [place], [address] IG% 0.400 Normal 0.0-0.9 [facility] Comment on above: Result Comment: IG% - Immature Granulocytes (promyelocytes, myelocytes and metamyelocytes) > 1% indicates that a LEFT SHIFT is Present. Performed By: #### L 500.4050, L100.0100 #### [facility] [address] [place], [address] Lymphocytes/100 WBC (Bld) 28.2 % Normal 19-41 [facility] Comment on above: Performed By: #### L 500.4050, L100.0100 #### [facility] [address] [place], [address] MCH (RBC) [Entitic mass] 32.1 pg High 27.0-32.0 [facility] Comment on above: Performed By: #### L 500.4050, L100.0100 #### [facility] [address] [place], [address] MCHC (RBC) [Mass/Vol] 33.8 g/dL Normal 32-36 [facility] Comment on above: Performed By: #### L 500.4050, L100.0100 #### [facility] [address] [place], [address] MCV (RBC) [Entitic vol] 95.2 fL Normal 81-99 [facility] Comment on above: Performed By: #### L 500.4050, L100.0100 #### [facility] [address] [place], [address] Monocytes/100 WBC (Bld) 7.1 % Normal 0-10 [facility] Comment on above: Performed By: #### L 500.4050, L100.0100 #### [facility] [address] [place], [address] Neutrophils/100 WBC (Bld) 61.1 % Normal 47-70 [facility] Comment on above: Performed By: #### L 500.4050, L100.0100 #### [facility] [address] [place], [address] Nucleated RBC (Bld) [#/Vol] 0 10*3/uL Normal 0-5 [facility] Comment on above: Performed By: #### L 500.4050, L100.0100 #### [facility] [address] [place], [address] Platelet mean volume (Bld) [Entitic vol] 8.6 fL Normal 6.2-12.0 [facility] Comment on above: Performed By: #### L 500.4050, L100.0100 #### [facility] [address] [place], [address] Platelets (Bld) [#/Vol] 479 10*3/uL High 150-450 [facility] Comment on above: Performed By: #### L 500.4050, L100.0100 #### [facility] [address] [place], [address] RBC (Bld) [#/Vol] 4.17 10*6/uL Low 4.2-5.4 [facility] Comment on above: Performed By: #### L 500.4050, L100.0100 #### [facility] [address] [place], [address] RDW SD 45.4 fl High 35.1-43.9 [facility] Comment on above: Performed By: #### L 500.4050, L100.0100 #### [facility] [address] [place], [address] WBC (Bld) [#/Vol] 10.9 10*3/uL Normal 4.4-11.0 [facility] Comment on above: Performed By: #### L 500.4050, L100.0100 #### [facility] [address] [place], [address] Carbon dioxide, total [Moles /volume] in Central venous bloodOrdered By: Abdirizak Perla on 10-28-2024 CO2 [Moles/Vol] 25.1 mmol/L 21.0-32.0 [facility] Chloride assayOrdered By: Hernandez Perla on 10-28-2024 Chloride [Moles/Vol] 97 mmol/L Low 98-108 [facility] Comprehensive Metabolic Prof ilon 10-28-2024 Albumin [Mass/Vol] 4.7 g/dL Normal 3.4-4.8 [facility] Comment on above: Performed By: #### L 500.4050, L100.0100 #### [facility] [address] [place], [address] Albumin/Globulin [Mass ratio] 1.7 {ratio} Normal 0.9-2.4 [facility] Comment on above: Performed By: #### L 500.4050, L100.0100 #### [facility] [address] [place], [address] ALK PHOS 141 U/L High 35-104 [facility] Comment on above: Performed By: #### L 500.4050, L100.0100 #### [facility] [address] [place], [address] ALT [Catalytic activity/Vol] 10 U/L Normal <=34 [facility] Comment on above: Performed By: #### L 500.4050, L100.0100 #### [facility] [address] [place], [address] AST [Catalytic activity/Vol] 17 U/L Normal <=31 [facility] Comment on above: Performed By: #### L 500.4050, L100.0100 #### [facility] [address] [place], [address] Bilirubin [Mass/Vol] 0.20 mg/dL Normal 0.00-1.30 [facility] Comment on above: Performed By: #### L 500.4050, L100.0100 #### [facility] [address] [place], [address] BUN/CRE 12.3 RATIO Normal 10-20 [facility] Comment on above: Performed By: #### L 500.4050, L100.0100 #### [facility] [address] [place], [address] Calcium [Mass/Vol] 9.6 mg/dL Normal 7.6-11.0 [facility] Comment on above: Performed By: #### L 500.4050, L100.0100 #### [facility] [address] [place], [address] Chloride [Moles/Vol] 97 mmol/L Low 98-108 [facility] Comment on above: Performed By: #### L 500.4050, L100.0100 #### [facility] [address] [place], [address] CO2 [Moles/Vol] 25.1 mmol/L Normal 21.0-32.0 [facility] Comment on above: Performed By: #### L 500.4050, L100.0100 #### [facility] [address] [place], [address] Creatinine [Mass/Vol] 1.06 mg/dL Normal 0.70-1.20 [facility] Comment on above: Performed By: #### L 500.4050, L100.0100 #### [facility] [address] [place], [address] ECRCL 46.75 ml/min Low 50-250 [facility] Comment on above: Performed By: #### L 500.4050, L100.0100 #### [facility] [address] [place], [address] GAP 13 Normal 5-15 [facility] Comment on above: Performed By: #### L 500.4050, L100.0100 #### [facility] [address] [place], [address] GFR/1.73 sq M.predicted among non-blacks MDRD (S/P/Bld) [Vol rate/Area] 58 mL/min/{1.73_m2} Low >60 [facility] Comment on above: Result Comment: mL/m in/1.73m2 CKD-EPI Creatinine Equation (2020) Performed By: #### L 500.4050, L100.0100 #### [facility] [address] [place], [address] Globulin (S) [Mass/Vol] 2.8 g/dL Normal 2.2-4.2 [facility] Comment on above: Performed By: #### L 500.4050, L100.0100 #### [facility] [address] [place], [address] Glucose [Mass/Vol] 125 mg/dL High 70-99 [facility] Comment on above: Performed By: #### L 500.4050, L100.0100 #### [facility] [address] [place], [address] Potassium [Moles/Vol] 3.8 mmol/L Normal 3.3-5.1 [facility] Comment on above: Performed By: #### L 500.4050, L100.0100 #### [facility] [address] [place], [address] Sodium [Moles/Vol] 135 mmol/L Normal 133-145 [facility] Comment on above: Performed By: #### L 500.4050, L100.0100 #### [facility] [address] [place], [address] T PROT 7.6 g/dL Normal 5.9-8.4 [facility] Comment on above: Performed By: #### L 500.4050, L100.0100 #### [facility] [address] [place], [address] Urea nitrogen [Mass/Vol] 13 mg/dL Normal 4-19 [facility] Comment on above: Performed By: #### L 500.4050, L100.0100 #### [facility] [address] [place], [address] Emergency Department Summary on 10-28-2024 Emergency Department Summary [facility] Medical Records Department [address] [place] [address] Emergency Department Summary 10/28/24 MR#: [id number] Acct: [id number] Name: NAVIN AUGUST I Rep #: [id number] : 1960 64 From: Abdirizak Perla MD [...] Prior similar symptoms: No Recent Illness/Hospitalization: [facility] Medical History Vitamin D deficiency Osteoarthritis Chronic [...] developed; Ne (more content not included)... Normal [facility] Eosinophil percentageOrdered By: ED PROVIDER on 10-28-2024 Eosinophils/100 WBC (Bld) 2.3 % 0-5 [facility] Erythrocyte distribution wid th ratioOrdered By: ED PROVIDER on 10-28-2024 Erythrocyte distribution width (RBC) [Ratio] 13.0 % 11.6-14.6 [facility] Erythrocyte distribution wid th standard deviationOrdered By: ED PROVIDER on 10-28-2024 Erythrocyte distribution width (RBC) [Ratio] 45.4 fl High 35.1-43.9 [facility] Glomerular filtration rate ( GFR) estimation/1.73 sq m using serum, plasma, or whole bOrdered By: Abdirizak Perla on 10-28-2024 GFR/1.73 sq M.predicted among non-blacks MDRD (S/P/Bld) [Vol rate/Area] 58 mL/min/{1.73_m2} Low >60 [facility] Comment on above: mL/min/1.73m2 CKD-EP I Creatinine Equation (2020) Hematocrit Auto (Bld) [Volum e fraction]Ordered By: ED PROVIDER on 10-28-2024 Hematocrit (Bld) [Volume fraction] 39.7 % 37-47 [facility] Hemoglobin measurementOrdere d By: ED PROVIDER on 10-28-2024 Hemoglobin (Bld) [Mass/Vol] 13.4 g/dL 12.0-15.0 [facility] Immature granulocytes/100 WB C Auto (Bld)Ordered By: ED PROVIDER on 10-28-2024 Immature granulocytes/100 WBC (Bld) 0.400 % 0.0-0.9 [facility] Comment on above: IG% - Immature Granu locytes (promyelocytes, myelocytes and metamyelocytes) > 1% indicates that a LEFT SHIFT is Present. Ketones Test strip Ql (U)Ord ered By: ED PROVIDER on 10-28-2024 Ketones Ql (U) Negative Negative [facility] - Chemistry and C hemistry - challengeOrdered By: Abdirizak Perla on 10-28-2024 AST [Catalytic activity/Vol] 17 U/L <32 [facility] MCV (mean corpuscular volume ) determinationOrdered By: ED PROVIDER on 10-28-2024 MCV (RBC) [Entitic vol] 95.2 fL 81-99 [facility] Mean corpuscular hemoglobin (MCH) determinationOrdered By: ED PROVIDER on 10-28-2024 MCH (RBC) [Entitic mass] 32.1 pg High 27.0-32.0 [facility] Mean corpuscular hemoglobin concentration (MCHC) determinationOrdered By: ED PROVIDER on 10-28-2024 MCHC (RBC) [Mass/Vol] 33.8 g/dL 32-36 [facility] Mean platelet volume determi nationOrdered By: ED PROVIDER on 10-28-2024 Platelet mean volume (Bld) [Entitic vol] 8.6 fL 6.2-12.0 [facility] Microscopic analysis of urin e for red blood cells (RBC)Ordered By: ED PROVIDER on 10-28-2024 Microscopic analysis of urine for red blood cells (RBC) 0 SEEN /hpf 0-5 [facility] Monocyte percentageOrdered B y: ED PROVIDER on 10-28-2024 Monocytes/100 WBC (Bld) 7.1 % 0-10 [facility] Mucus LM Ql (Urine sed)Order ed By: ED PROVIDER on 10-28-2024 Mucus Ql (Urine sed) 0 SEEN /hpf [facility] Neutrophil percentageOrdered By: ED PROVIDER on 10-28-2024 Neutrophils/100 WBC (Bld) 61.1 % 47-70 [facility] Nitrite Test strip Ql (U)Ord ered By: ED PROVIDER on 10-28-2024 Nitrite Ql (U) Negative Negative [facility] Nucleated red blood cell per centageOrdered By: ED PROVIDER on 10-28-2024 Nucleated RBC/100 WBC (Bld) [Ratio] 0 % 0-5 [facility] Platelet countOrdered By: ED PROVIDER on 10-28-2024 Platelets (Bld) [#/Vol] 479 10*3/uL High 150-450 [facility] Potassium measurement (mass/ volume)Ordered By: Abdirizak Perla on 10-28-2024 Potassium (Unsp spec) [Mass/Vol] 3.8 mmol/L 3.3-5.1 [facility] Protein Test strip Ql (U)Ord ered By: ED PROVIDER on 10-28-2024 Protein Ql (U) Negative Negative [facility] RBC Auto (Bld) [#/Vol]Ordere d By: ED PROVIDER on 10-28-2024 RBC (Bld) [#/Vol] 4.17 10*6/uL Low 4.2-5.4 [facility] Serum creatinine measurement (mass/volume)Ordered By: Abdirizak Perla on 10-28-2024 Creatinine [Mass/Vol] 1.06 mg/dL 0.70-1.20 [facility] Serum globulin measurementOr dered By: Abdirizak Perla on 10-28-2024 Globulin (S) [Mass/Vol] 2.8 g/dL 2.2-4.2 [facility] Serum glucose measurement (m ass/volume)Ordered By: Abdirizak Perla on 10-28-2024 Glucose [Mass/Vol] 125 mg/dL High 70-99 [facility] Serum or plasma alanine huggins otransferase (ALT) measurementOrdered By: Abdirizak Perla on 10-28-2024 ALT [Catalytic activity/Vol] 10 U/L <35 [facility] Serum or plasma albumin chace urement (mass/volume)Ordered By: Abdirizak Perla on 10-28-2024 Albumin [Mass/Vol] 4.7 g/dL 3.4-4.8 [facility] Serum or plasma albumin/glob ulin mass ratioOrdered By: Abdirizak Perla on 10-28-2024 Albumin/Globulin [Mass ratio] 1.7 {ratio} 0.9-2.4 [facility] Serum or plasma alkaline [place] sphatase measurementOrdered By: Abdirizak Perla on 10-28-2024 ALP [Catalytic activity/Vol] 141 U/L High 35-104 [facility] Serum or plasma calcium chace urement (mass/volume)Ordered By: Abdirizak Perla on 10-28-2024 Calcium [Mass/Vol] 9.6 mg/dL 7.6-11.0 [facility] Serum or plasma urea nitroge n measurement (mass/volume)Ordered By: Abdirizak Perla on 10-28-2024 Urea nitrogen [Mass/Vol] 13 mg/dL 4-19 [facility] Sodium levelOrdered By: Abdirizak Perla on 10-28-2024 Sodium [Moles/Vol] 135 mmol/L 133-145 [facility] Squamous epithelial cells de tection in urine sediment by light microscopyOrdered By: ED PROVIDER on 10-28-2024 Epithelial cells.squamous LM Ql (Urine sed) 0-5 SEEN /hpf - [facility] Total proteinOrdered By: Jeremi Perla on 10-28-2024 Protein [Mass/Vol] 7.6 g/dL 5.9-8.4 [facility] Urinalysis, Completeon 10-28 BACTERIA RARE Normal None Seen [facility] Comment on above: Order Comment: ANDREW CTOR TO SPECIFY Performed By: #### L 500.4050, L100.0100 #### [facility] [address] [place], [address] EPI,SQUAMOUS 0-5 SEEN Normal - [facility] Comment on above: Order Comment: ANDREW CTOR TO SPECIFY Performed By: #### L 500.4050, L100.0100 #### [facility] [address] [place], [address] Mucus Ql (Urine sed) 0 SEEN Normal [facility] Comment on above: Order Comment: ANDREW CTOR TO SPECIFY Performed By: #### L 500.4050, L100.0100 #### [facility] [address] [place], [address] RBC 0 SEEN Normal 0-5 [facility] Comment on above: Order Comment: ANDREW CTOR TO SPECIFY Performed By: #### L 500.4050, L100.0100 #### [facility] [address] [place], [address] WBC 0 SEEN Normal 0-5 [facility] Comment on above: Order Comment: COLLE CTOR TO SPECIFY Performed By: #### L 500.4050, L100.0100 #### [facility] [address] [place], [address] Urine clarityOrdered By: ED PROVIDER on 10-28-2024 Clarity (U) Clear Clear [facility] Urine color determinationOrd ered By: ED PROVIDER on 10-28-2024 Color (U) Straw Yellow [facility] Urine glucose detectionOrder ed By: ED PROVIDER on 10-28-2024 Glucose Ql (U) Normal mg/dl Normal [facility] Urine leukocyte esterase det ection by dipstickOrdered By: ED PROVIDER on 10-28-2024 Leukocyte esterase Test strip Ql (U) Negative Negative [facility] Urine pHOrdered By: ED PROVI MARCELINO on 10-28-2024 pH (U) 6.5 [pH] 5.0 - 8.0 [facility] Urine sediment bacteria coun t by microscopy (number/high power field)Ordered By: ED PROVIDER on 10-28-2024 Bacteria LM.HPF (Urine sed) [#/Area] RARE /hpf None Seen [facility] Urine specific gravity measu rementOrdered By: ED PROVIDER on 10-28-2024 Specific gravity (U) [Rel density] 1.010 1.002-1.03 0 [facility] Urine urobilinogen measureme ntOrdered By: ED PROVIDER on 10-28-2024 Urobilinogen Ql (U) Normal mg/dl Normal [facility] White blood cell (WBC) count Ordered By: ED PROVIDER on 10-28-2024 WBC (Bld) [#/Vol] 10.9 10*3/uL 4.4-11.0 [facility] White blood cell countOrdere d By: ED PROVIDER on 10-28-2024 White blood cell count 0 SEEN /hpf 0-5 [facility] Low Dose CT Lung Screeningon 09-29-[address] Lung Screening [facility] Imaging Services [address] [place], [place] [address] [address] Lung Screening MR#: [id number] Acct: [id number] Name: NAVIN AUGUST #: [id number] : 1960 F 64 From: Jak Mcknight MD PCP: Dr. Jaswinder Muñiz MD Status: REG CLI Study: Low Dose CT Lung Screening Date of Exam: 09/29 Exam# [id number] Ordering Dr: Jaswinder Muñiz MD EXAM: CT [...] in 12 months is recommended. Reading Location: [facility] CC: Dr. Jaswinder Muñiz MD Metal Mockup Maker: Signed Normal [facility] Absolute lymphocyte countOrd ered By: Jaswinder Muñiz on 09-04-2024 Lymphocytes Auto (Unsp spec) [#/Vol] 1.94 10*3/uL 0.83-4.51 [facility] Absolute neutrophil countOrd ered By: Jaswinder Muñiz on 09-04-2024 Neutrophils (Bld) [#/Vol] 4.3 10*3/uL 2.0-7.7 [facility] Anion gap in Serum or Plasma Ordered By: Jaswinder Muñiz on 09-04-2024 Anion gap [Moles/Vol] 12 mmol/L 5-15 [facility] Automated lymphocyte count a s percentage of total leukocytesOrdered By: Jaswinder Muñiz on 09-04-2024 Lymphocytes/100 WBC Auto (Unsp spec) 27.6 % - [facility] BUN/creatinine ratioOrdered By: Jaswinder Muñiz on 09-04-2024 Urea nitrogen/Creatinine [Mass ratio] 10.4 mg/mg 10- [facility] Basophil percentageOrdered B y: Jaswinder Muñiz on 09-04-2024 Basophils/100 WBC (Bld) 1.1 % High 0-1 [facility] Bilirubin, totalOrdered By: [facility] Mu[facility]iz on 09-04-2024 Bilirubin [Mass/Vol] mg/dL 0.00-1.30 [facility] CBC W/Diff, Automatedon 08-16 Absolute Lymph 1.94 X10 3/uL Normal 0.83-4.51 [facility] Comment on above: Order Comment: Order Date: 09/04/24Order Info: [id number] - CBCD Performed By: #### L 506.1000, L500.4050, L500.4100, L501.9520, L100.0100 #### [facility] [address] [place], [address] Absolute Neut 4.3 X10 3/uL Normal 2.0-7.7 [facility] Comment on above: Order Comment: Order Date: 09/04/24Order Info: [id number] - CBCD Performed By: #### L 506.1000, L500.4050, L500.4100, L501.9520, L100.0100 #### [facility] [address] [place], [address] Basophils/100 WBC (Bld) 1.1 % High 0-1 [facility] Comment on above: Order Comment: Order Date: 09/04/24Order Info: [id number] - CBCD Performed By: #### L 506.1000, L500.4050, L500.4100, L501.9520, L100.0100 #### [facility] [address] [place], [address] Eosinophils/100 WBC (Bld) 2.3 % Normal 0-5 [facility] Comment on above: Order Comment: Order Date: 09/04/24Order Info: [id number] - CBCD Performed By: #### L 506.1000, L500.4050, L500.4100, L501.9520, L100.0100 #### [facility] [address] [place], [address] Erythrocyte distribution width (RBC) [Ratio] 12.6 % Normal 11.6-14.6 [facility] Comment on above: Order Comment: Order Date: 09/04/24Order Info: [id number] - CBCD Performed By: #### L 506.1000, L500.4050, L500.4100, L501.9520, L100.0100 #### [facility] [address] [place], [address] Hematocrit (Bld) [Volume fraction] 38.4 % Normal 37-47 [facility] Comment on above: Order Comment: Order Date: 09/04/24Order Info: [id number] - CBCD Performed By: #### L 506.1000, L500.4050, L500.4100, L501.9520, L100.0100 #### [facility] [address] [place], [address] Hemoglobin (Bld) [Mass/Vol] 13.2 g/dL Normal 12.0-15.0 [facility] Comment on above: Order Comment: Order Date: 09/04/24Order Info: [id number] - CBCD Performed By: #### L 506.1000, L500.4050, L500.4100, L501.9520, L100.0100 #### [facility] [address] [place], [address] IG% 0.300 Normal 0.0-0.9 [facility] Comment on above: Order Comment: Order Date: 09/04/24Order Info: [id number] - CBCD Result Comment: IG% - Immature Granulocytes (promyelocytes, myelocytes and metamyelocytes) > 1% indicates that a LEFT SHIFT is Present. Performed By: #### L 506.1000, L500.4050, L500.4100, L501.9520, L100.0100 #### [facility] [address] [place], [address] Lymphocytes/100 WBC (Bld) 27.6 % Normal 19-41 [facility] Comment on above: Order Comment: Order Date: 09/04/24Order Info: [id number] - CBCD Performed By: #### L 506.1000, L500.4050, L500.4100, L501.9520, L100.0100 #### [facility] [address] [place], [address] MCH (RBC) [Entitic mass] 32.9 pg High 27.0-32.0 [facility] Comment on above: Order Comment: Order Date: 09/04/24Order Info: [id number] - CBCD Performed By: #### L 506.1000, L500.4050, L500.4100, L501.9520, L100.0100 #### [facility] [address] [place], [address] MCHC (RBC) [Mass/Vol] 34.4 g/dL Normal 32-36 [facility] Comment on above: Order Comment: Order Date: 09/04/24Order Info: [id number] - CBCD Performed By: #### L 506.1000, L500.4050, L500.4100, L501.9520, L100.0100 #### [facility] [address] [place], [address] MCV (RBC) [Entitic vol] 95.8 fL Normal 81-99 [facility] Comment on above: Order Comment: Order Date: 09/04/24Order Info: [id number] - CBCD Performed By: #### L 506.1000, L500.4050, L500.4100, L501.9520, L100.0100 #### [facility] [address] [place], [address] Monocytes/100 WBC (Bld) 7.3 % Normal 0-10 [facility] Comment on above: Order Comment: Order Date: 09/04/24Order Info: [id number] - CBCD Performed By: #### L 506.1000, L500.4050, L500.4100, L501.9520, L100.0100 #### [facility] [address] [place], [address] Neutrophils/100 WBC (Bld) 61.4 % Normal 47-70 [facility] Comment on above: Order Comment: Order Date: 09/04/24Order Info: [id number] - CBCD Performed By: #### L 506.1000, L500.4050, L500.4100, L501.9520, L100.0100 #### [facility] [address], [address] Nucleated RBC (Bld) [#/Vol] 0 10*3/uL Normal 0-5 [facility] Comment on above: Order Comment: Order Date: 09/04/24Order Info: [id number] - CBCD Performed By: #### L 506.1000, L500.4050, L500.4100, L501.9520, L100.0100 #### [facility] [address] [place], [address] Platelet mean volume (Bld) [Entitic vol] 9.2 fL Normal 6.2-12.0 [facility] Comment on above: Order Comment: Order Date: 09/04/24Order Info: [id number] - CBCD Performed By: #### L 506.1000, L500.4050, L500.4100, L501.9520, L100.0100 #### [facility] [address] [place], [address] Platelets (Bld) [#/Vol] 510 10*3/uL High 150-450 [facility] Comment on above: Order Comment: Order Date: 09/04/24Order Info: [id number] - CBCD Performed By: #### L 506.1000, L500.4050, L500.4100, L501.9520, L100.0100 #### [facility] [address] [place], [address] RBC (Bld) [#/Vol] 4.01 10*6/uL Low 4.2-5.4 [facility] Comment on above: Order Comment: Order Date: 09/04/24Order Info: [id number] - CBCD Performed By: #### L 506.1000, L500.4050, L500.4100, L501.9520, L100.0100 #### [facility] [address] [place], [address] RDW SD 44.5 fl High 35.1-43.9 [facility] Comment on above: Order Comment: Order Date: 09/04/24Order Info: [id number] - CBCD Performed By: #### L 506.1000, L500.4050, L500.4100, L501.9520, L100.0100 #### [facility] [address] [place], [address] WBC (Bld) [#/Vol] 7.0 10*3/uL Normal 4.4-11.0 [facility] Comment on above: Order Comment: Order Date: 09/04/24Order Info: [id number] - CBCD Performed By: #### L 506.1000, L500.4050, L500.4100, L501.9520, L100.0100 #### [facility] [address] [place], [address] Calculated very low density lipoprotein (VLDL) cholesterol measurementOrdered By: Jaswinder Muñiz on 09-04-2024 Calculated very low density lipoprotein (VLDL) cholesterol measurement 26 mg/dL 5-40 [facility] Carbon dioxide, total [Moles /volume] in Central venous bloodOrdered By: Jaswinder Muñiz on 09-04-2024 CO2 [Moles/Vol] 24.0 mmol/L 21.0-32.0 [facility] Chloride assayOrdered By: Stacie Muñiz on 09-04-2024 Chloride [Moles/Vol] 100 mmol/L 98-108 [facility] Comprehensive Metabolic Prof ilon 09-04-2024 Albumin [Mass/Vol] 4.5 g/dL Normal 3.4-4.8 [facility] Comment on above: Order Comment: Order Date: 09/04/24Order Info: [id number] - CMPOrder Info: [id number] - LIPIDOrder Info: [id number] - TSH Performed By: #### L 506.1000, L500.4050, L500.4100, L501.9520, L100.0100 #### [facility] [address] [place], [place], [address] Albumin/Globulin [Mass ratio] 1.7 {ratio} Normal 0.9-2.4 [facility] Comment on above: Order Comment: Order Date: 09/04/24Order Info: [id number]- - CMPOrder Info: [id number] - LIPIDOrder Info: [id number] - TSH Performed By: #### L 506.1000, L500.4050, L500.4100, L501.9520, L100.0100 #### [facility] [address] [place], [place], [address] ALK PHOS 136 U/L High 35-104 [facility] Comment on above: Order Comment: Order Date: 09/04/24Order Info: [id number] - CMPOrder Info: [id number] - LIPIDOrder Info: [id number] - TSH Performed By: #### L 506.1000, L500.4050, L500.4100, L501.9520, L100.0100 #### [facility] [address] [place], [address] ALT [Catalytic activity/Vol] 17 U/L Normal <=34 [facility] Comment on above: Order Comment: Order Date: 09/04/24Order Info: [id number] - CMPOrder Info: [id number] - LIPIDOrder Info: [id number] - TSH Performed By: #### L 506.1000, L500.4050, L500.4100, L501.9520, L100.0100 #### [facility] [address] [place], [address] AST [Catalytic activity/Vol] 23 U/L Normal <=31 [facility] Comment on above: Order Comment: Order Date: 09/04/24Order Info: [id number] - CMPOrder Info: [id number] - LIPIDOrder Info: [id number] - TSH Performed By: #### L 506.1000, L500.4050, L500.4100, L501.9520, L100.0100 #### [facility] [address] [place], [address] BUN/CRE 10.4 RATIO Normal 10-20 [facility] Comment on above: Order Comment: Order Date: 09/04/24Order Info: [id number] - CMPOrder Info: [id number] - LIPIDOrder Info: [id number] - TSH Performed By: #### L 506.1000, L500.4050, L500.4100, L501.9520, L100.0100 #### [facility] [address] [place], [address] Calcium [Mass/Vol] 9.5 mg/dL Normal 7.6-11.0 [facility] Comment on above: Order Comment: Order Date: 09/04/24Order Info: [id number] - CMPOrder Info: [id number] - LIPIDOrder Info: [id number] - TSH Performed By: #### L 506.1000, L500.4050, L500.4100, L501.9520, L100.0100 #### [facility] [address] [place], [address] Chloride [Moles/Vol] 100 mmol/L Normal 98-108 [facility] Comment on above: Order Comment: Order Date: 09/04/24Order Info: [id number] - CMPOrder Info: [id number] - LIPIDOrder Info: [id number] - TSH Performed By: #### L 506.1000, L500.4050, L500.4100, L501.9520, L100.0100 #### [facility] [address] [place], [address] CO2 [Moles/Vol] 24.0 mmol/L Normal 21.0-32.0 [facility] Comment on above: Order Comment: Order Date: 09/04/24Order Info: [id number] - CMPOrder Info: [id number] - LIPIDOrder Info: [id number] - TSH Performed By: #### L 506.1000, L500.4050, L500.4100, L501.9520, L100.0100 #### [facility] [address] [place], [address] Creatinine [Mass/Vol] 0.97 mg/dL Normal 0.70-1.20 [facility] Comment on above: Order Comment: Order Date: 09/04/24Order Info: [id number] - CMPOrder Info: [id number] - LIPIDOrder Info: [id number] - TSH Performed By: #### L 506.1000, L500.4050, L500.4100, L501.9520, L100.0100 #### [facility] [address] [place], [address] GAP 12 Normal 5-15 [facility] Comment on above: Order Comment: Order Date: 09/04/24Order Info: [id number] - CMPOrder Info: [id number] - LIPIDOrder Info: [id number] - TSH Performed By: #### L 506.1000, L500.4050, L500.4100, L501.9520, L100.0100 #### [facility] [address] [place], [address] GFR/1.73 sq M.predicted among non-blacks MDRD (S/P/Bld) [Vol rate/Area] 65 mL/min/{1.73_m2} Normal >60 [facility] Comment on above: Order Comment: Order Date: 09/04/24Order Info: 07-1 - CMPOrder Info: [id number] - LIPIDOrder Info: [id number] - TSH Result Comment: mL/m in/1.73m2 CKD-EPI Creatinine Equation (2020) Performed By: #### L 506.1000, L500.4050, L500.4100, L501.9520, L100.0100 #### [facility] [address] [place], [address] Globulin (S) [Mass/Vol] 2.7 g/dL Normal 2.2-4.2 [facility] Comment on above: Order Comment: Order Date: 09/04/24Order Info: [id number]- - CMPOrder Info: [id number] - LIPIDOrder Info: [id number] - TSH Performed By: #### L 506.1000, L500.4050, L500.4100, L501.9520, L100.0100 #### [facility] [address] [place], [address] Glucose [Mass/Vol] 114 mg/dL High 70-99 [facility] Comment on above: Order Comment: Order Date: 09/04/24Order Info: 07-1 - CMPOrder Info: [id number] - LIPIDOrder Info: [id number] - TSH Performed By: #### L 506.1000, L500.4050, L500.4100, L501.9520, L100.0100 #### [facility] [address] [place], [address] Potassium [Moles/Vol] 3.9 mmol/L Normal 3.3-5.1 [facility] Comment on above: Order Comment: Order Date: 09/04/24Order Info: [id number] - CMPOrder Info: [id number] - LIPIDOrder Info: [id number] - TSH Performed By: #### L 506.1000, L500.4050, L500.4100, L501.9520, L100.0100 #### [facility] [address] [place], [address] Sodium [Moles/Vol] 136 mmol/L Normal 133-145 [facility] Comment on above: Order Comment: Order Date: 09/04/24Order Info: [id number]- - CMPOrder Info: [id number] - LIPIDOrder Info: 3 - TSH Performed By: #### L 506.1000, L500.4050, L500.4100, L501.9520, L100.0100 #### [facility] [address] [place], [address] T BILI < 0.15 Normal 0.00-1.30 [facility] Comment on above: Order Comment: Order Date: 09/04/24Order Info: [id number] - CMPOrder Info: [id number] - LIPIDOrder Info: 3 - TSH Performed By: #### L 506.1000, L500.4050, L500.4100, L501.9520, L100.0100 #### [facility] [address] [place], [address] T PROT 7.2 g/dL Normal 5.9-8.4 [facility] Comment on above: Order Comment: Order Date: 09/04/24Order Info: [id number] - CMPOrder Info: [id number] - LIPIDOrder Info: [id number] - TSH Performed By: #### L 506.1000, L500.4050, L500.4100, L501.9520, L100.0100 #### [facility] [address] [place], [address] Urea nitrogen [Mass/Vol] 10 mg/dL Normal 4-19 [facility] Comment on above: Order Comment: Order Date: 09/04/24Order Info: [id number] - CMPOrder Info: [id number] - LIPIDOrder Info: [id number] - TSH Performed By: #### L 506.1000, L500.4050, L500.4100, L501.9520, L100.0100 #### [facility] [address] [place], [address] Eosinophil percentageOrdered By: Jaswinder Muñiz on 09-04-2024 Eosinophils/100 WBC (Bld) 2.3 % 0-5 [facility] Erythrocyte distribution wid th ratioOrdered By: Jaswinder Muñiz on 09-04-2024 Erythrocyte distribution width (RBC) [Ratio] 12.6 % 11.6-14.6 [facility] Erythrocyte distribution wid th standard deviationOrdered By: Jaswinder Muñiz on 09-04-2024 Erythrocyte distribution width (RBC) [Ratio] 44.5 fl High 35.1-43.9 [facility] Glomerular filtration rate ( GFR) estimation/1.73 sq m using serum, plasma, or whole bOrdered By: Jaswinder Muñiz on 09-04-2024 GFR/1.73 sq M.predicted among non-blacks MDRD (S/P/Bld) [Vol rate/Area] 65 mL/min/{1.73_m2} >60 [facility] Comment on above: mL/min/1.73m2 CKD-EP I Creatinine Equation (2020) Hematocrit Auto (Bld) [Volum e fraction]Ordered By: Jaswinder Muñiz on 09-04-2024 Hematocrit (Bld) [Volume fraction] 38.4 % 37-47 [facility] Hemoglobin measurementOrdere d By: Jaswinder Muñiz on 09-04-2024 Hemoglobin (Bld) [Mass/Vol] 13.2 g/dL 12.0-15.0 [facility] Immature granulocytes/100 WB C Auto (Bld)Ordered By: Jaswinder Muñiz on 09-04-2024 Immature granulocytes/100 WBC (Bld) 0.300 % 0.0-0.9 [facility] Comment on above: IG% - Immature Granu locytes (promyelocytes, myelocytes and metamyelocytes) > 1% indicates that a LEFT SHIFT is Present. LDL calc ser/plasOrdered By: Jaswinder Muñiz on 09-04-2024 Cholesterol in LDL [Mass/Vol] 168 mg/dL [facility] Comment on above: Oyukxyuqwx=543-550 m g/dL & Higher Fzcc=768 mg/dL or greater Laboratory - Chemistry and C hemistry - challengeOrdered By: Jaswinder Muñiz on 09-04-2024 AST [Catalytic activity/Vol] 23 U/L <32 [facility] Lipid Profileon 09-04-2024 CHOL:HDL 5.15 Normal [facility] Comment on above: Order Comment: Order Date: 09/04/24Order Info: [id number] - CMPOrder Info: [id number] - LIPIDOrder Info: [id number] - TSH Performed By: #### L 506.1000, L500.4050, L500.4100, L501.9520, L100.0100 #### [facility] [address] [place], [address] Cholesterol [Mass/Vol] 241 mg/dL High <=200 [facility] Comment on above: Order Comment: Order Date: 09/04/24Order Info: [id number] - CMPOrder Info: [id number] - LIPIDOrder Info: [id number] - TSH Result Comment: Chol esterol level, Desirable <200 mg/dL Borderline high cholesterol 200-239 mg/dL High cholesterol >=240 mg/dL Recommendations of the NCEP Adult Treatment Panel for the following risk-cutoff thresholds for the [place] population. Performed By: #### L 506.1000, L500.4050, L500.4100, L501.9520, L100.0100 #### [facility] [address] [place], [address] Cholesterol in HDL [Mass/Vol] 47 mg/dL Normal [facility] Comment on above: Order Comment: Order Date: 09/04/24Order Info: [id number]- - CMPOrder Info: [id number] - LIPIDOrder Info: [id number] - TSH Result Comment: Cassandra onal Cholesterol Education Program (NCEP) guidelines: <40 mg/dL: Low HDL-cholesterol (major risk factor for CHD) >= 60 mg/dL: High HDL-cholesterol (negative risk factor for CHD) HDL-cholesterol is affected by a number of factors, e.g. smoking, exercise, hormones, sex and age. Performed By: #### L 506.1000, L500.4050, L500.4100, L501.9520, L100.0100 #### [facility] [address] [place], [address] Cholesterol in LDL [Mass/Vol] 168 mg/dL Normal [facility] Comment on above: Order Comment: Order Date: 09/04/24Order Info: 07-1 - CMPOrder Info: [id number] - LIPIDOrder Info: 3 - TSH Result Comment: Bord vdxpzd=448-459 mg/dL Higher Vjgc=921 mg/dL or greater Performed By: #### L 506.1000, L500.4050, L500.4100, L501.9520, L100.0100 #### [facility] [address] [place], [address] Cholesterol in VLDL [Mass/Vol] 26 mg/dL Normal 5-40 [facility] Comment on above: Order Comment: Order Date: 09/04/24Order Info: 07 - CMPOrder Info: - LIPIDOrder Info: 3 - TSH Performed By: #### L 506.1000, L500.4050, L500.4100, L501.9520, L100.0100 #### [facility] [address] [place], [address] Triglyceride [Mass/Vol] 131 mg/dL Normal [facility] Comment on above: Order Comment: Order Date: 09/04/24Order Info: [id number] - CMPOrder Info: [id number] - LIPIDOrder Info: 3 - TSH Result Comment: The drugs N-Acetylcysteine and Metamizole may falsely depress this assay. Normal range: <150 mg/dL Borderline High: 150-199 mg/dL High: 200-499 mg/dL Very High: >500 mg/dL Performed By: #### L 506.1000, L500.4050, L500.4100, L501.9520, L100.0100 #### [facility] [address] [place], [address] MCV (mean corpuscular volume ) determinationOrdered By: Jaswinder Muñiz on 09-04-2024 MCV (RBC) [Entitic vol] 95.8 fL 81-99 [facility] Mean corpuscular hemoglobin (MCH) determinationOrdered By: Jaswinder Muñiz on 09-04-2024 MCH (RBC) [Entitic mass] 32.9 pg High 27.0-32.0 [facility] Mean corpuscular hemoglobin concentration (MCHC) determinationOrdered By: Jaswinder Muñiz on 09-04-2024 MCHC (RBC) [Mass/Vol] 34.4 g/dL 32-36 [facility] Mean platelet volume determi nationOrdered By: Jaswinder Muñiz on 09-04-2024 Platelet mean volume (Bld) [Entitic vol] 9.2 fL 6.2-12.0 [facility] Monocyte percentageOrdered B y: Jaswinder Muñiz on 09-04-2024 Monocytes/100 WBC (Bld) 7.3 % 0-10 [facility] Neutrophil percentageOrdered By: Jaswinder Muñiz on 09-04-2024 Neutrophils/100 WBC (Bld) 61.4 % 47-70 [facility] Nucleated red blood cell per centageOrdered By: Jaswinder Muñiz on 09-04-2024 Nucleated RBC/100 WBC (Bld) [Ratio] 0 % 0-5 [facility] Platelet countOrdered By: Stacie Muñiz on 09-04-2024 Platelets (Bld) [#/Vol] 510 10*3/uL High 150-450 [facility] Potassium measurement (mass/ volume)Ordered By: Jaswinder Muñiz on 09-04-2024 Potassium (Unsp spec) [Mass/Vol] 3.9 mmol/L 3.3-5.1 [facility] RBC Auto (Bld) [#/Vol]Ordere d By: Jaswinder Muñiz on 09-04-2024 RBC (Bld) [#/Vol] 4.01 10*6/uL Low 4.2-5.4 [facility] Screening total cholesterol/ high density lipoprotein (HDL) cholesterol ratioOrdered By: Jaswinder Muñiz on 09-04-2024 Cholesterol.total/Rhonda sterol in HDL [Mass ratio] 5.15 {ratio} [facility] Serum creatinine measurement (mass/volume)Ordered By: Jaswinder Muñiz on 09-04-2024 Creatinine [Mass/Vol] 0.97 mg/dL 0.70-1.20 [facility] Serum globulin measurementOr dered By: Jaswinder Muñiz on 09-04-2024 Globulin (S) [Mass/Vol] 2.7 g/dL 2.2-4.2 [facility] Serum glucose measurement (m ass/volume)Ordered By: Jaswinder Muñiz on 09-04-2024 Glucose [Mass/Vol] 114 mg/dL High 70-99 [facility] Serum or plasma alanine huggins otransferase (ALT) measurementOrdered By: Jaswinder Muñiz on 09-04-2024 ALT [Catalytic activity/Vol] 17 U/L <35 [facility] Serum or plasma albumin chace urement (mass/volume)Ordered By: Jaswinder Muñiz on 09-04-2024 Albumin [Mass/Vol] 4.5 g/dL 3.4-4.8 [facility] Serum or plasma albumin/glob ulin mass ratioOrdered By: Jaswinder Muñiz on 09-04-2024 Albumin/Globulin [Mass ratio] 1.7 {ratio} 0.9-2.4 [facility] Serum or plasma alkaline venice sphatase measurementOrdered By: Jaswinder Muñiz on 09-04-2024 ALP [Catalytic activity/Vol] 136 U/L High 35-104 [facility] Serum or plasma calcium chace urement (mass/volume)Ordered By: Jaswinder Muñiz on 09-04-2024 Calcium [Mass/Vol] 9.5 mg/dL 7.6-11.0 [facility] Serum or plasma cholesterol in HDL measurement (mass/volume)Ordered By: Jaswinder Muñiz on 09-04-2024 Cholesterol in HDL [Mass/Vol] 47 mg/dL >40 [facility] Comment on above: National Cholesterol Education Program (NCEP) guidelines:<40 mg/dL: Low HDL-cholesterol (major risk factor for CHD)>= 60 mg/dL: High HDL-cholesterol (negative risk factor for CHD)HDL-cholesterol is affected by a number of factors, e.g. smoking, exercise, hormones, sex and age. Serum or plasma cholesterol measurement (mass/volume)Ordered By: Jaswinder Muñiz on 09-04-2024 Cholesterol [Mass/Vol] 241 mg/dL High <201 [facility] Comment on above: Cholesterol level, D esirable <200 mg/dLBorderline high cholesterol 200-239 mg/dLHigh cholesterol >=240 mg/dLRecommendations of the NCEP Adult Treatment Panel for the following risk-cutoff thresholds for the [place] population. Serum or plasma urea nitroge n measurement (mass/volume)Ordered By: Jaswinder Muñiz on 09-04-2024 Urea nitrogen [Mass/Vol] 10 mg/dL 4-19 [facility] Sodium levelOrdered By: Jah Muñiz on 09-04-2024 Sodium [Moles/Vol] 136 mmol/L 133-145 [facility] TSH DL <= 0.005 mIU/L QnOrde red By: Jaswinder Muñiz on 09-04-2024 TSH Qn 2.070 uIU/mL 0.300-4.20 0 [facility] Thyroid Stim Hormone (TSH)on 09-04-2024 TSH 2.070 uIU/mL Normal 0.300-4.20 0 [facility] Comment on above: Order Comment: Order Date: 09/04/24Order Info: [id number] - CMPOrder Info: [id number] - LIPIDOrder Info: [id number] - TSH Performed By: #### L 506.1000, L500.4050, L500.4100, L501.9520, L100.0100 #### [facility] [address] [place], [address] Total proteinOrdered By: Aury Muñiz on 09-04-2024 Protein [Mass/Vol] 7.2 g/dL 5.9-8.4 [facility] Triglycerides measurementOrd ered By: Jaswinder Muñiz on 09-04-2024 Triglyceride [Mass/Vol] 131 mg/dL <199 [facility] Comment on above: The drugs N-Acetylcy steine and Metamizole may falsely depress this assay. Normal range: <150 mg/dLBorderline High: 150-199 mg/dLHigh: 200-499 mg/dLVery High: >500 mg/dL Vitamin D,25 Hydroxyon 09-04 Vitamin D 25-OH 22.5 ng/mL Low 30-100 [facility] Comment on above: Order Comment: Order Date: 09/04/24Order Info: [id number] - CMPOrder Info: [id number] - LIPIDOrder Info: [id number] - TSH Result Comment: Shelbi min D Status Deficiency: <20 ng/mL (50nmol/L) Insufficiency: 20-30 ng/mL (50-75 nmol/L) Sufficiency: 30-100 ng/mL (75-250 nmol/L) Toxicity: >100 ng/mL (>250 nmol/L) Performed By: #### L 506.1000, L500.4050, L500.4100, L501.9520, L100.0100 #### [facility] [address] [place], [address] White blood cell (WBC) count Ordered By: Jaswinder Muñiz on 09-04-2024 WBC (Bld) [#/Vol] 7.0 10*3/uL 4.4-11.0 [facility] Absolute lymphocyte countOrd ered By: Yobany Snell on 07-18-2024 Lymphocytes Auto (Unsp spec) [#/Vol] 2.07 10*3/uL 0.83-4.51 [facility] Absolute neutrophil countOrd ered By: Yobany Snell on 07-18-2024 Neutrophils (Bld) [#/Vol] 5.4 10*3/uL 2.0-7.7 [facility] Anion gap in Serum or Plasma Ordered By: Yobany Snell on 07-18-2024 Anion gap [Moles/Vol] 14 mmol/L 5-15 [facility] Automated lymphocyte count a s percentage of total leukocytesOrdered By: Yobany Channing on 07-18-2024 Lymphocytes/100 WBC Auto (Unsp spec) 24.8 % 19-41 [facility] BUN/creatinine ratioOrdered By: Yobany Snell on 07-18-2024 Urea nitrogen/Creatinine [Mass ratio] 10.1 mg/mg 10-20 [facility] Basophil percentageOrdered B y: Yobany Silvaok on 07-18-2024 Basophils/100 WBC (Bld) 1.4 % High 0-1 [facility] Bilirubin, totalOrdered By: Yobany Snell on 07-18-2024 Bilirubin [Mass/Vol] 0.33 mg/dL 0.00-1.30 [facility] CBC W/Diff, Automatedon Absolute Lymph 2.07 X10 3/uL Normal 0.83-4.51 [facility] Comment on above: Performed By: #### L 500.4050, L100.0100 #### [facility] [address] [place], [address] Absolute Neut 5.4 X10 3/uL Normal 2.0-7.7 [facility] Comment on above: Performed By: #### L 500.4050, L100.0100 #### [facility] [address] [place], [address] Basophils/100 WBC (Bld) 1.4 % High 0-1 [facility] Comment on above: Performed By: #### L 500.4050, L100.0100 #### [facility] [address] [place], [address] Eosinophils/100 WBC (Bld) 1.6 % Normal 0-5 [facility] Comment on above: Performed By: #### L 500.4050, L100.0100 #### [facility] [address] [place], [address] Erythrocyte distribution width (RBC) [Ratio] 12.6 % Normal 11.6-14.6 [facility] Comment on above: Performed By: #### L 500.4050, L100.0100 #### [facility] [address] [place], [address] Hematocrit (Bld) [Volume fraction] 41.6 % Normal 37-47 [facility] Comment on above: Performed By: #### L 500.4050, L100.0100 #### [facility] [address] [place], [address] Hemoglobin (Bld) [Mass/Vol] 14.3 g/dL Normal 12.0-15.0 [facility] Comment on above: Performed By: #### L 500.4050, L100.0100 #### [facility] [address] [place], [address] IG% 0.400 Normal 0.0-0.9 [facility] Comment on above: Result Comment: IG% - Immature Granulocytes (promyelocytes, myelocytes and metamyelocytes) > 1% indicates that a LEFT SHIFT is Present. Performed By: #### L 500.4050, L100.0100 #### [facility] [address] [place], [address] Lymphocytes/100 WBC (Bld) 24.8 % Normal 19-41 [facility] Comment on above: Performed By: #### L 500.4050, L100.0100 #### [facility] [address] [place], [address] MCH (RBC) [Entitic mass] 33.0 pg High 27.0-32.0 [facility] Comment on above: Performed By: #### L 500.4050, L100.0100 #### [facility] [address] [place], [address] MCHC (RBC) [Mass/Vol] 34.4 g/dL Normal 32-36 [facility] Comment on above: Performed By: #### L 500.4050, L100.0100 #### [facility] [address] [place], [address] MCV (RBC) [Entitic vol] 96.1 fL Normal 81-99 [facility] Comment on above: Performed By: #### L 500.4050, L100.0100 #### [facility] [address] [place], [address] Monocytes/100 WBC (Bld) 7.2 % Normal 0-10 [facility] Comment on above: Performed By: #### L 500.4050, L100.0100 #### [facility] [address] [place], [address] Neutrophils/100 WBC (Bld) 64.6 % Normal 47-70 [facility] Comment on above: Performed By: #### L 500.4050, L100.0100 #### [facility] [address] [place], [address] Nucleated RBC (Bld) [#/Vol] 0 10*3/uL Normal 0-5 [facility] Comment on above: Performed By: #### L 500.4050, L100.0100 #### [facility] [address] [place], [address] Platelet mean volume (Bld) [Entitic vol] 9.0 fL Normal 6.2-12.0 [facility] Comment on above: Performed By: #### L 500.4050, L100.0100 #### [facility] [address] [place], [address] Platelets (Bld) [#/Vol] 514 10*3/uL High 150-450 [facility] Comment on above: Performed By: #### L 500.4050, L100.0100 #### [facility] [address] [place], [address] RBC (Bld) [#/Vol] 4.33 10*6/uL Normal 4.2-5.4 [facility] Comment on above: Performed By: #### L 500.4050, L100.0100 #### [facility] [address] [place], [address] RDW SD 45.2 fl High 35.1-43.9 [facility] Comment on above: Performed By: #### L 500.4050, L100.0100 #### [facility] [address] [place], [address] WBC (Bld) [#/Vol] 8.3 10*3/uL Normal 4.4-11.0 [facility] Comment on above: Performed By: #### L 500.4050, L100.0100 #### [facility] [address] [place], [address] Calculated very low density lipoprotein (VLDL) cholesterol measurementOrdered By: Yobany Snell on 07-18-2024 Calculated very low density lipoprotein (VLDL) cholesterol measurement 27 mg/dL 5-40 [facility] VLDL Cholesterol 27 mg/dL -40 [facility] Carbon dioxide, total [Moles /volume] in Central venous bloodOrdered By: Yobany Snell on 07-18-2024 CO2 [Moles/Vol] 25.0 mmol/L 21.0-32.0 [facility] Chloride assayOrdered By: Gamaliel Snell on 07-18-2024 Chloride [Moles/Vol] 95 mmol/L Low 98-108 [facility] Comprehensive Metabolic Prof ilon 07-18-2024 Albumin [Mass/Vol] 4.9 g/dL High 3.4-4.8 [facility] Comment on above: Performed By: #### L 500.4050, L100.0100 #### [facility] [address] [place], [address] Albumin/Globulin [Mass ratio] 1.6 {ratio} Normal 0.9-2.4 [facility] Comment on above: Performed By: #### L 500.4050, L100.0100 #### [facility] [address] [place], [address] ALK PHOS 136 U/L High 35-104 [facility] Comment on above: Performed By: #### L 500.4050, L100.0100 #### [facility] [address] [place], [address] ALT [Catalytic activity/Vol] 13 U/L Normal <=34 [facility] Comment on above: Performed By: #### L 500.4050, L100.0100 #### [facility] [address] [place], [address] AST [Catalytic activity/Vol] 19 U/L Normal <=31 [facility] Comment on above: Performed By: #### L 500.4050, L100.0100 #### [facility] [address] [place], [address] Bilirubin [Mass/Vol] 0.33 mg/dL Normal 0.00-1.30 [facility] Comment on above: Performed By: #### L 500.4050, L100.0100 #### [facility] [address] [place], [address] BUN/CRE 10.1 RATIO Normal 10-20 [facility] Comment on above: Performed By: #### L 500.4050, L100.0100 #### [facility] [address] [place], [address] Calcium [Mass/Vol] 9.4 mg/dL Normal 7.6-11.0 [facility] Comment on above: Performed By: #### L 500.4050, L100.0100 #### [facility] [address] [place], [address] Chloride [Moles/Vol] 95 mmol/L Low 98-108 [facility] Comment on above: Performed By: #### L 500.4050, L100.0100 #### [facility] [address] [place], [address] CO2 [Moles/Vol] 25.0 mmol/L Normal 21.0-32.0 [facility] Comment on above: Performed By: #### L 500.4050, L100.0100 #### [facility] [address] [place], [address] Creatinine [Mass/Vol] 1.09 mg/dL Normal 0.70-1.20 [facility] Comment on above: Performed By: #### L 500.4050, L100.0100 #### [facility] [address] [place], [address] GAP 14 Normal 5-15 [facility] Comment on above: Performed By: #### L 500.4050, L100.0100 #### [facility] [address] [place], [address] GFR/1.73 sq M.predicted among non-blacks MDRD (S/P/Bld) [Vol rate/Area] 56 mL/min/{1.73_m2} Low >60 [facility] Comment on above: Result Comment: mL/m in/1.73m2 CKD-EPI Creatinine Equation (2020) Performed By: #### L 500.4050, L100.0100 #### [facility] [address] [place], [address] Globulin (S) [Mass/Vol] 3.1 g/dL Normal 2.2-4.2 [facility] Comment on above: Performed By: #### L 500.4050, L100.0100 #### [facility] [address] [place], [address] Glucose [Mass/Vol] 113 mg/dL High 70-99 [facility] Comment on above: Performed By: #### L 500.4050, L100.0100 #### [facility] [address] [place], [address] Potassium [Moles/Vol] 3.7 mmol/L Normal 3.3-5.1 [facility] Comment on above: Performed By: #### L 500.4050, L100.0100 #### [facility] [address] [place], [address] Sodium [Moles/Vol] 134 mmol/L Normal 133-145 [facility] Comment on above: Performed By: #### L 500.4050, L100.0100 #### [facility] [address] [place], [address] T PROT 7.9 g/dL Normal 5.9-8.4 [facility] Comment on above: Performed By: #### L 500.4050, L100.0100 #### [facility] [address] [place], [address] Urea nitrogen [Mass/Vol] 11 mg/dL Normal 4-19 [facility] Comment on above: Performed By: #### L 500.4050, L100.0100 #### [facility] [address] [place], [address] Eosinophil percentageOrdered By: Yobany Snell on 07-18-2024 Eosinophils/100 WBC (Bld) 1.6 % 0-5 [facility] Erythrocyte distribution wid th ratioOrdered By: Yobany Snell on 07-18-2024 Erythrocyte distribution width (RBC) [Ratio] 12.6 % 11.6-14.6 [facility] Erythrocyte distribution wid th standard deviationOrdered By: Yobany Snell on 07-18-2024 Erythrocyte distribution width (RBC) [Entitic vol] 45.2 fL High 35.1-43.9 [facility] Erythrocyte distribution width (RBC) [Ratio] 45.2 fl High 35.1-43.9 [facility] GFR/1.73 sq M.predicted vic g non-blacks MDRD (S/P/Bld) [Vol rate/Area]Ordered By: Yobany Snell on 07-18-2024 Estimated GFR (MDRD) Non-Af Amer 56 Low >60 [facility] Comment on above: mL/min/1.73m2 CKD-EP I Creatinine Equation (2020) Glomerular filtration rate ( GFR) estimation/1.73 sq m using serum, plasma, or whole bOrdered By: Yobany Snell on 07-18-2024 GFR/1.73 sq M.predicted among non-blacks MDRD (S/P/Bld) [Vol rate/Area] 56 mL/min/{1.73_m2} Low >60 [facility] Comment on above: mL/min/1.73m2 CKD-EP I Creatinine Equation (2020) Hematocrit Auto (Bld) [Volum e fraction]Ordered By: Yobany Snell on 07-18-2024 Hematocrit (Bld) [Volume fraction] 41.6 % 37-47 [facility] Hemoglobin measurementOrdere d By: Yobany Snell on 07-18-2024 Hemoglobin (Bld) [Mass/Vol] 14.3 g/dL 12.0-15.0 [facility] Immature granulocytes/100 WB C Auto (Bld)Ordered By: Yobany Snell on 07-18-2024 Immature granulocytes/100 WBC (Bld) 0.400 % 0.0-0.9 [facility] Comment on above: IG% - Immature Granu locytes (promyelocytes, myelocytes and metamyelocytes) > 1% indicates that a LEFT SHIFT is Present. L506.1001on 07-18-2024 Vitamin D 25-OH 29.5 ng/mL Low 30-100 [facility] Comment on above: Result Comment: Shelbi min D Status Deficiency: <20 ng/mL (50nmol/L) Insufficiency: 20-30 ng/mL (50-75 nmol/L) Sufficiency: 30-100 ng/mL (75-250 nmol/L) Toxicity: >100 ng/mL (>250 nmol/L) Performed By: #### L 506.1000, L500.4050, L500.4100, L501.9520, L100.0100 #### [facility] [address] [place], [address] LDL calc ser/plasOrdered By: Yobany Snell on 07-18-2024 Cholesterol in LDL [Mass/Vol] 256 mg/dL [facility] Comment on above: Dalfxreivs=812-673 m g/dL & Higher Tcah=748 mg/dL or greater LDL Cholesterol, Calculated 256 mg/dL [facility] Comment on above: Iexwytgnke=490-072 m g/dL & Higher Auqw=403 mg/dL or greater Laboratory - Chemistry and C hemistry - challengeOrdered By: Yobany Snell on 07-18-2024 AST [Catalytic activity/Vol] 19 U/L <32 [facility] Lipid Profileon 07-18-2024 CHOL:HDL 6.40 Normal [facility] Comment on above: Performed By: #### L 506.1000, L500.4050, L500.4100, L501.9520, L100.0100 #### [facility] [address] [place], [address] Cholesterol [Mass/Vol] 336 mg/dL High <=200 [facility] Comment on above: Result Comment: Chol esterol level, Desirable <200 mg/dL Borderline high cholesterol 200-239 mg/dL High cholesterol >=240 mg/dL Recommendations of the NCEP Adult Treatment Panel for the following risk-cutoff thresholds for the [place] population. Performed By: #### L 506.1000, L500.4050, L500.4100, L501.9520, L100.0100 #### [facility] [address] [place], [address] Cholesterol in HDL [Mass/Vol] 53 mg/dL Normal [facility] Comment on above: Result Comment: Cassandra onal Cholesterol Education Program (NCEP) guidelines: <40 mg/dL: Low HDL-cholesterol (major risk factor for CHD) >= 60 mg/dL: High HDL-cholesterol (negative risk factor for CHD) HDL-cholesterol is affected by a number of factors, e.g. smoking, exercise, hormones, sex and age. Performed By: #### L 506.1000, L500.4050, L500.4100, L501.9520, L100.0100 #### [facility] [address] [place], [address] Cholesterol in LDL [Mass/Vol] 256 mg/dL Normal [facility] Comment on above: Result Comment: Bord jvcccf=917-499 mg/dL Higher Xmme=315 mg/dL or greater Performed By: #### L 506.1000, L500.4050, L500.4100, L501.9520, L100.0100 #### [facility] [address] [place], [address] Cholesterol in VLDL [Mass/Vol] 27 mg/dL Normal 5-40 [facility] Comment on above: Performed By: #### L 506.1000, L500.4050, L500.4100, L501.9520, L100.0100 #### [facility] [address] [place], [address] Triglyceride [Mass/Vol] 136 mg/dL Normal [facility] Comment on above: Result Comment: The drugs N-Acetylcysteine and Metamizole may falsely depress this assay. Normal range: <150 mg/dL Borderline High: 150-199 mg/dL High: 200-499 mg/dL Very High: >500 mg/dL Performed By: #### L 506.1000, L500.4050, L500.4100, L501.9520, L100.0100 #### [facility] [address] [place], [address] Lymphocytes Auto (Unsp spec) [#/Vol]Ordered By: Yobany Snell on 07-18-2024 Lymphocytes (Bld) [#/Vol] 2.07 10*3/uL 0.83-4.51 [facility] Lymphocytes/100 WBC Auto (Un sp spec)Ordered By: Yobany Snell on 07-18-2024 Lymphocytes/100 WBC (Bld) 24.8 % 19-41 [facility] MCV (mean corpuscular volume ) determinationOrdered By: Yobany Snell on 07-18-2024 MCV (RBC) [Entitic vol] 96.1 fL 81-99 [facility] Mean corpuscular hemoglobin (MCH) determinationOrdered By: Yobany Snell on 07-18-2024 MCH (RBC) [Entitic mass] 33.0 pg High 27.0-32.0 [facility] Mean corpuscular hemoglobin concentration (MCHC) determinationOrdered By: Yobany Snell on 07-18-2024 MCHC (RBC) [Mass/Vol] 34.4 g/dL 32-36 [facility] Mean platelet volume determi nationOrdered By: Yobany Snell on 07-18-2024 Platelet mean volume (Bld) [Entitic vol] 9.0 fL 6.2-12.0 [facility] Monocyte percentageOrdered B y: Yobany Snell on 07-18-2024 Monocytes/100 WBC (Bld) 7.2 % 0-10 [facility] Neutrophil percentageOrdered By: Yobany Snell on 07-18-2024 Neutrophils/100 WBC (Bld) 64.6 % 47-70 [facility] Nucleated red blood cell per centageOrdered By: Yobany Snell on 07-18-2024 Nucleated RBC/100 WBC (Bld) [Ratio] 0 % 0-5 [facility] Platelet countOrdered By: Gamaliel Snell on 07-18-2024 Platelets (Bld) [#/Vol] 514 10*3/uL High 150-450 [facility] Potassium (Unsp spec) [Mass/ Vol]Ordered By: Yobany Snell on 07-18-2024 Potassium [Moles/Vol] 3.7 mmol/L 3.3-5.1 [facility] Potassium measurement (mass/ volume)Ordered By: Yobany Snell on 07-18-2024 Potassium (Unsp spec) [Mass/Vol] 3.7 mmol/L 3.3-5.1 [facility] RBC Auto (Bld) [#/Vol]Ordere d By: Yobany Snell on 07-18-2024 RBC (Bld) [#/Vol] 4.33 10*6/uL 4.2-5.4 [facility] Screening total cholesterol/ high density lipoprotein (HDL) cholesterol ratioOrdered By: Yobany Snell on 07-18-2024 Cholesterol.total/Rhonda sterol in HDL [Mass ratio] 6.40 {ratio} [facility] Serum creatinine measurement (mass/volume)Ordered By: Yobany Snell on 07-18-2024 Creatinine [Mass/Vol] 1.09 mg/dL 0.70-1.20 [facility] Serum globulin measurementOr dered By: Yobany Snell on 07-18-2024 Globulin (S) [Mass/Vol] 3.1 g/dL 2.2-4.2 [facility] Serum glucose measurement (m ass/volume)Ordered By: Yobany Snell on 07-18-2024 Glucose [Mass/Vol] 113 mg/dL High 70-99 [facility] Serum or plasma alanine huggins otransferase (ALT) measurementOrdered By: Yobany Snell 07-18-2024 ALT [Catalytic activity/Vol] 13 U/L <35 [facility] Serum or plasma albumin chace urement (mass/volume)Ordered By: Yobany Snell 07-18-2024 Albumin [Mass/Vol] 4.9 g/dL High 3.4-4.8 [facility] Serum or plasma albumin/glob ulin mass ratioOrdered By: Yobany Snell 07-18-2024 Albumin/Globulin [Mass ratio] 1.6 {ratio} 0.9-2.4 [facility] Serum or plasma alkaline venice sphatase measurementOrdered By: Yobany Snell 07-18-2024 ALP [Catalytic activity/Vol] 136 U/L High 35-104 [facility] Serum or plasma calcium chace urement (mass/volume)Ordered By: Yobany Snell 07-18-2024 Calcium [Mass/Vol] 9.4 mg/dL 7.6-11.0 [facility] Serum or plasma cholesterol in HDL measurement (mass/volume)Ordered By: Yobany Snell 07-18-2024 Cholesterol in HDL [Mass/Vol] 53 mg/dL >40 [facility] Comment on above: National Cholesterol Education Program (NCEP) guidelines:<40 mg/dL: Low HDL-cholesterol (major risk factor for CHD)>= 60 mg/dL: High HDL-cholesterol (negative risk factor for CHD)HDL-cholesterol is affected by a number of factors, e.g. smoking, exercise, hormones, sex and age. Serum or plasma cholesterol measurement (mass/volume)Ordered By: Yobany Snell on 07-18-2024 Cholesterol [Mass/Vol] 336 mg/dL High <201 [facility] Comment on above: Cholesterol level, D esirable <200 mg/dLBorderline high cholesterol 200-239 mg/dLHigh cholesterol >=240 mg/dLRecommendations of the NCEP Adult Treatment Panel for the following risk-cutoff thresholds for the [place] population. Serum or plasma urea nitroge n measurement (mass/volume)Ordered By: Yobany Snell on 07-18-2024 Urea nitrogen [Mass/Vol] 11 mg/dL 4-19 [facility] Sodium levelOrdered By: Yobany Snell on 07-18-2024 Sodium [Moles/Vol] 134 mmol/L 133-145 [facility] TSH DL <= 0.005 mIU/L QnOrde red By: Yobany Snell on 07-18-2024 Thyroid Stimulating Hormone (TSH) 1.310 uIU/mL 0.300-4.20 0 [facility] TSH Qn 1.310 uIU/mL 0.300-4.20 0 [facility] Thyroid Stim Hormone (TSH)on 07-18-2024 TSH 1.310 uIU/mL Normal 0.300-4.20 0 [facility] Comment on above: Performed By: #### L 500.4050, L100.0100 #### [facility] [place], [address] Total proteinOrdered By: Yobany Snell on 07-18-2024 Protein [Mass/Vol] 7.9 g/dL 5.9-8.4 [facility] Triglycerides measurementOrd ered By: Yobany Snell on 07-18-2024 Triglyceride [Mass/Vol] 136 mg/dL <199 [facility] Comment on above: The drugs N-Acetylcy steine and Metamizole may falsely depress this assay. Normal range: <150 mg/dLBorderline High: 150-199 mg/dLHigh: 200-499 mg/dLVery High: >500 mg/dL Vitamin D, 25-hydroxyOrdered By: Yobany Snell on 07-18-2024 Vitamin D 25-Hydroxy 29.5 ng/mL Low 30-100 [facility] Comment on above: Vitamin D StatusDefi ciency: <20 ng/mL (50nmol/L)Insufficiency: 20-30 ng/mL (50-75 nmol/L)Sufficiency: 30-100 ng/mL (75-250 nmol/L)Toxicity: >100 ng/mL (>250 nmol/L) White blood cell (WBC) count Ordered By: Yobany Snell on 07-18-2024 WBC (Bld) [#/Vol] 8.3 10*3/uL 4.4-11.0 [facility] [id number] DOrdered By: Hua Snell on 04-17-2024 Vitamin D 25-Hydroxy 33.1 ng/mL [facility] Comment on above: Vitamin D 25(OH) Sta tus Range Deficiency <20 ng/mL (50nmol/L) Insufficiency 20 - 30 ng/mL (50 - 75 nmol/L) Sufficiency 30 - 100 ng/mL (75 - 250 nmol/L) Toxicity >100 ng/mL (>250 nmol/L) Absolute neutrophil countOrd ered By: Yobany Snell on 04-17-2024 Neutrophils (Bld) [#/Vol] 7.4 10*3/uL 2.0-7.7 [facility] Albumin to globulin ratioOrd ered By: Yobany Snell on 04-17-2024 Albumin/Globulin [Mass ratio] 1.3 {ratio} 0.9-2.4 [facility] Basophil percentageOrdered B y: Yobany Snell on 04-17-2024 Basophils/100 WBC (Bld) 0.6 % 0-1 [facility] Bilirubin, totalOrdered By: Yobany Snell on 04-17-2024 Bilirubin [Mass/Vol] 0.40 mg/dL 0.20-1.00 [facility] Comment on above: For patients on eltr ombopag therapy, use of Dimension [place] TBIL is not recommended. Blood urea nitrogen (BUN)/cr eatinine ratioOrdered By: Yobany Snell on 04-17-2024 Urea nitrogen/Creatinine [Mass ratio] 12.8 mg/mg 10-20 [facility] CBC W/Diff, Automatedon 12-0 Absolute Lymph 2.42 X10 3/uL Normal 0.83-4.51 [facility] Comment on above: Performed By: #### L 500.4050, L100.0100 #### [facility] [address] [place], [address] Absolute Neut 7.4 X10 3/uL Normal 2.0-7.7 [facility] Comment on above: Performed By: #### L 500.4050, L100.0100 #### [facility] [address] [place], [address] Basophils/100 WBC (Bld) 0.6 % Normal 0-1 [facility] Comment on above: Performed By: #### L 500.4050, L100.0100 #### [facility] [address] [place], [address] Eosinophils/100 WBC (Bld) 2.6 % Normal 0-5 [facility] Comment on above: Performed By: #### L 500.4050, L100.0100 #### [facility] [address] [place], [address] Erythrocyte distribution width (RBC) [Ratio] 12.4 % Normal 11.6-14.6 [facility] Comment on above: Performed By: #### L 500.4050, L100.0100 #### [facility] [address] [place], [address] Hematocrit (Bld) [Volume fraction] 39.1 % Normal 37-47 [facility] Comment on above: Performed By: #### L 500.4050, L100.0100 #### [facility] [address] [place], [address] Hemoglobin (Bld) [Mass/Vol] 12.8 g/dL Normal 12.0-15.0 [facility] Comment on above: Performed By: #### L 500.4050, L100.0100 #### [facility] [address] [place], [address] IG% 0.300 Normal 0.0-0.9 [facility] Comment on above: Result Comment: IG% - Immature Granulocytes (promyelocytes, myelocytes and metamyelocytes) > 1% indicates that a LEFT SHIFT is Present. Performed By: #### L 500.4050, L100.0100 #### [facility] [address] [place], [address] Lymphocytes/100 WBC (Bld) 22.0 % Normal 19-41 [facility] Comment on above: Performed By: #### L 500.4050, L100.0100 #### [facility] [address] [place], [address] MCH (RBC) [Entitic mass] 32.5 pg High 27.0-32.0 [facility] Comment on above: Performed By: #### L 500.4050, L100.0100 #### [facility] [address] [place], [address] MCHC (RBC) [Mass/Vol] 32.7 g/dL Normal 32-36 [facility] Comment on above: Performed By: #### L 500.4050, L100.0100 #### [facility] [address] [place], [address] MCV (RBC) [Entitic vol] 99.2 fL High 81-99 [facility] Comment on above: Performed By: #### L 500.4050, L100.0100 #### [facility] [address] [place], [address] Monocytes/100 WBC (Bld) 6.8 % Normal 0-10 [facility] Comment on above: Performed By: #### L 500.4050, L100.0100 #### [facility] [address] [place], [address] Neutrophils/100 WBC (Bld) 67.7 % Normal 47-70 [facility] Comment on above: Performed By: #### L 500.4050, L100.0100 #### [facility] [address] [place], [address] Nucleated RBC (Bld) [#/Vol] 0 10*3/uL Normal 0-5 [facility] Comment on above: Performed By: #### L 500.4050, L100.0100 #### [facility] [address] [place], [address] Platelet mean volume (Bld) [Entitic vol] 9.2 fL Normal 6.2-12.0 [facility] Comment on above: Performed By: #### L 500.4050, L100.0100 #### [facility] [address] [place], [address] Platelets (Bld) [#/Vol] 457 10*3/uL High 150-450 [facility] Comment on above: Performed By: #### L 500.4050, L100.0100 #### [facility] [address] [place], [address] RBC (Bld) [#/Vol] 3.94 10*6/uL Low 4.2-5.4 [facility] Comment on above: Performed By: #### L 500.4050, L100.0100 #### [facility] [address] [place], [address] RDW SD 45.6 fl High 35.1-43.9 [facility] Comment on above: Performed By: #### L 500.4050, L100.0100 #### [facility] [address] [place], [address] WBC (Bld) [#/Vol] 11.0 10*3/uL Normal 4.4-11.0 [facility] Comment on above: Performed By: #### L 500.4050, L100.0100 #### [facility] [address] [place], [address] Carbon dioxide measurementOr dered By: Yobany Snell on 04-17-2024 CO2 [Moles/Vol] 31.0 mmol/L 21.0-32.0 [facility] Chloride measurementOrdered By: Yobany Snell on 04-17-2024 Chloride [Moles/Vol] 98 mmol/L 98-107 [facility] Comprehensive Metabolic Prof ilon 04-17-2024 Albumin [Mass/Vol] 4.3 g/dL Normal 3.2-5.0 [facility] Comment on above: Performed By: #### L 500.4050, L100.0100 #### [facility] [address] [place], [address] Albumin/Globulin [Mass ratio] 1.3 {ratio} Normal 0.9-2.4 [facility] Comment on above: Performed By: #### L 500.4050, L100.0100 #### [facility] [address] [place], [address] ALK P 121 U/L High 45-117 [facility] Comment on above: Performed By: #### L 500.4050, L100.0100 #### [facility] [address] [place], [address] ALT [Catalytic activity/Vol] 17 U/L Normal 13-56 [facility] Comment on above: Performed By: #### L 500.4050, L100.0100 #### [facility] [address] [place], [address] AST [Catalytic activity/Vol] 11 U/L Low 15-37 [facility] Comment on above: Performed By: #### L 500.4050, L100.0100 #### [facility] [address] [place], [address] Bilirubin [Mass/Vol] 0.40 mg/dL Normal 0.20-1.00 [facility] Comment on above: Result Comment: For patients on eltrombopag therapy, use of Dimension [place] TBIL is not recommended. Performed By: #### L 500.4050, L100.0100 #### [facility] [address] [place], [address] BUN/CRE 12.8 RATIO Normal 10-20 [facility] Comment on above: Performed By: #### L 500.4050, L100.0100 #### [facility] [address] [place], [address] CA,Total 9.2 mg/dL Normal 8.5-10.1 [facility] Comment on above: Performed By: #### L 500.4050, L100.0100 #### [facility] [address] [place], [address] Chloride [Moles/Vol] 98 mmol/L Normal 98-107 [facility] Comment on above: Performed By: #### L 500.4050, L100.0100 #### [facility] [address] [place], [address] CO2 [Moles/Vol] 31.0 mmol/L Normal 21.0-32.0 [facility] Comment on above: Performed By: #### L 500.4050, L100.0100 #### [facility] [address] [place], [address] Creatinine [Mass/Vol] 1.17 mg/dL High 0.55-1.02 [facility] Comment on above: Result Comment: The validity of the calculated GFR GFRAA in patients over 70 years has not been determined. Clinical correlation is essential. Performed By: #### L 500.4050, L100.0100 #### [facility] [address] [place], [address] EST GFR - AA 60 mL/min Normal >60 [facility] Comment on above: Result Comment: Afri can [place]ian GFR Calc Performed By: #### L 500.4050, L100.0100 #### [facility] [address] [place], [address] GAP 6 Normal 5-15 [facility] Comment on above: Performed By: #### L 500.4050, L100.0100 #### [facility] [address] [place], [address] GFR/1.73 sq M.predicted among non-blacks MDRD (S/P/Bld) [Vol rate/Area] 49 mL/min/{1.73_m2} Low >60 [facility] Comment on above: Result Comment: Non- GFR Calc Performed By: #### L 500.4050, L100.0100 #### [facility] [address] [place], [address] Globulin (S) [Mass/Vol] 3.3 g/dL Normal 2.2-4.2 [facility] Comment on above: Performed By: #### L 500.4050, L100.0100 #### [facility] [address] [place], [address] Glucose [Mass/Vol] 92 mg/dL Normal 74-106 [facility] Comment on above: Performed By: #### L 500.4050, L100.0100 #### [facility] [address] [place], [address] Potassium [Moles/Vol] 3.4 mmol/L Low 3.5-5.1 [facility] Comment on above: Performed By: #### L 500.4050, L100.0100 #### [facility] [address] [place], [address] Sodium [Moles/Vol] 135 mmol/L Low 136-145 [facility] Comment on above: Performed By: #### L 500.4050, L100.0100 #### [facility] [address] [place], [address] T PROT 7.6 g/dL Normal 6.4-8.2 [facility] Comment on above: Performed By: #### L 500.4050, L100.0100 #### [facility] [address] [place], [address] Urea nitrogen [Mass/Vol] 15 mg/dL Normal 7-18 [facility] Comment on above: Performed By: #### L 500.4050, L100.0100 #### [facility] [address] [place], [address] Eosinophil percentageOrdered By: Yobany Snell on 04-17-2024 Eosinophils/100 WBC (Bld) 2.6 % 0-5 [facility] Erythrocyte distribution wid th ratioOrdered By: Yobany Snell on 04-17-2024 Erythrocyte distribution width (RBC) [Ratio] 12.4 % 11.6-14.6 [facility] Erythrocyte distribution wid th standard deviationOrdered By: Yobany Snell on 04-17-2024 Erythrocyte distribution width (RBC) [Entitic vol] 45.6 fL High 35.1-43.9 [facility] Estimated glomerular filtrat ion rate (GFR) AmericanOrdered By: Yobany Snell on 04-17-2024 Estimated GFR (MDRD) Amer 60 mL/min >60 [facility] Comment on above: GFR Calc Glomerular filtration rate ( GFR) estimationOrdered By: Yobany Snell on 04-17-2024 Estimated GFR (MDRD) Non-Af Amer 49 mL/min Low >60 [facility] Comment on above: Non- GFR Calc Glucose measurementOrdered B y: Yobany Snell on 04-17-2024 Glucose [Mass/Vol] 92 mg/dL 74-106 [facility] Hematocrit Auto (Bld) [Volum e fraction]Ordered By: Yobany Snell on 04-17-2024 Hematocrit (Bld) [Volume fraction] 39.1 % 37-47 [facility] Hemoglobin measurementOrdere d By: Yobany Snell on 04-17-2024 Hemoglobin (Bld) [Mass/Vol] 12.8 g/dL 12.0-15.0 [facility] High density lipoprotein (HD L) measurementOrdered By: Yobany Snell on 04-17-2024 Cholesterol in HDL [Mass/Vol] 47 mg/dL >40 [facility] Comment on above: The drugs N-Acetylcy steine and Metamizole may falsely depress this assay. Reference Range HDL <40 mg/dL Low HDL Cholesterol HDL >or= 60 mg/dL High HDL Cholesterol Immature granulocytes/100 WB C Auto (Bld)Ordered By: Yobany Snell on 04-17-2024 Immature granulocytes/100 WBC (Bld) 0.300 % 0.0-0.9 [facility] Comment on above: IG% - Immature Granu locytes (promyelocytes, myelocytes and metamyelocytes) > 1% indicates that a LEFT SHIFT is Present. Laboratory - Chemistry and C hemistry - challengeOrdered By: Yobany Snell on 04-17-2024 AST [Catalytic activity/Vol] 11 U/L Low 15-37 [facility] Lipid Profileon 04-17-2024 Cholesterol [Mass/Vol] 243 mg/dL High 200 [facility] Comment on above: Result Comment: <200 mg/dL Desirable 200-240 mg/dL Borderline >240 mg/dL High Risk Performed By: #### L 500.4050, L100.0100 #### [facility] [address] [place], [address] Cholesterol in HDL [Mass/Vol] 47 mg/dL Normal [facility] Comment on above: Result Comment: The drugs N-Acetylcysteine and Metamizole may falsely depress this assay. Reference Range HDL <40 mg/dL Low HDL Cholesterol HDL >or= 60 mg/dL High HDL Cholesterol Performed By: #### L 500.4050, L100.0100 #### [facility] [address] [place], [address] Cholesterol in LDL [Mass/Vol] 150 mg/dL High 0-130 [facility] Comment on above: Performed By: #### L 500.4050, L100.0100 #### [facility] [address] [place], [address] Cholesterol in VLDL [Mass/Vol] 46 mg/dL High 5-40 [facility] Comment on above: Performed By: #### L 500.4050, L100.0100 #### [facility] [address] [place], [address] Triglyceride [Mass/Vol] 230 mg/dL High [facility] Comment on above: Result Comment: The drugs N-Acetylcysteine and Metamizole may falsely depress this assay. Serum Triglycerides Reference Interval Normal <150 mg/dL Borderline high 150 - 199 mg/dL High 200 - 499 mg/dL Very High > or = 500 mg/dL Performed By: #### L 500.4050, L100.0100 #### [facility] [address] [place], [address] Low density lipoprotein (LDL ) cholesterol measurementOrdered By: Yobany Snell on 04-17-2024 Cholesterol in LDL [Mass/Vol] 150 mg/dL High 0-130 [facility] Lymphocytes Auto (Unsp spec) [#/Vol]Ordered By: Yobany Snell on 04-17-2024 Lymphocytes (Bld) [#/Vol] 2.42 10*3/uL 0.83-4.51 [facility] Lymphocytes/100 WBC Auto (Un sp spec)Ordered By: Yobany Snell on 04-17-2024 Lymphocytes/100 WBC (Bld) 22.0 % 19-41 [facility] MCV (mean corpuscular volume ) determinationOrdered By: Yobany Snell on 04-17-2024 MCV (RBC) [Entitic vol] 99.2 fL High 81-99 [facility] Mean corpuscular hemoglobin (MCH) determinationOrdered By: Yobany Snell on 04-17-2024 MCH (RBC) [Entitic mass] 32.5 pg High 27.0-32.0 [facility] Mean corpuscular hemoglobin concentration (MCHC) determinationOrdered By: Yobany Snell on 04-17-2024 MCHC (RBC) [Mass/Vol] 32.7 g/dL 32-36 [facility] Mean platelet volume determi nationOrdered By: Yobany Snell on 04-17-2024 Platelet mean volume (Bld) [Entitic vol] 9.2 fL 6.2-12.0 [facility] Monocyte percentageOrdered B y: Yobany Snell on 04-17-2024 Monocytes/100 WBC (Bld) 6.8 % 0-10 [facility] Neutrophil percentageOrdered By: Yobany Snell on 04-17-2024 Neutrophils/100 WBC (Bld) 67.7 % 47-70 [facility] Nucleated red blood cell per centageOrdered By: Yobany Snell on 04-17-2024 Nucleated RBC/100 WBC (Bld) [Ratio] 0 % 0-5 [facility] Platelet countOrdered By: Gamaliel Snell on 04-17-2024 Platelets (Bld) [#/Vol] 457 10*3/uL High 150-450 [facility] Potassium measurementOrdered By: Yobany Snell on 04-17-2024 Potassium [Moles/Vol] 3.4 mmol/L Low 3.5-5.1 [facility] RBC Auto (Bld) [#/Vol]Ordere d By: Yobany Snell on 04-17-2024 RBC (Bld) [#/Vol] 3.94 10*6/uL Low 4.2-5.4 [facility] Serum anion gap measurementO rdered By: Yobany Snell on 04-17-2024 Anion gap [Moles/Vol] 6 mmol/L 5-15 [facility] Serum globulin measurementOr dered By: Yobany Snell on 04-17-2024 Globulin (S) [Mass/Vol] 3.3 g/dL 2.2-4.2 [facility] Serum or plasma alanine huggins otransferase (ALT) measurementOrdered By: Yobany Snell 04-17-2024 ALT [Catalytic activity/Vol] 17 U/L 13-56 [facility] Serum or plasma albumin chace urement (mass/volume)Ordered By: Yobany Snell on 04-17-2024 Albumin [Mass/Vol] 4.3 g/dL 3.2-5.0 [facility] Serum or plasma alkaline ven[place] sphatase measurementOrdered By: Yobany Snell on 04-17-2024 ALP [Catalytic activity/Vol] 121 U/L High 45-117 [facility] Serum or plasma calcium chace urement (mass/volume)Ordered By: Yobany Snell on 04-17-2024 Calcium [Mass/Vol] 9.2 mg/dL 8.5-10.1 [facility] Serum or plasma cholesterol measurement (mass/volume)Ordered By: Yobany Snell on 04-17-2024 Cholesterol [Mass/Vol] 243 mg/dL High <200 [facility] Comment on above: <200 mg/dL Desirable 200-240 mg/dL Borderline >240 mg/dL High Risk Serum or plasma creatinine m easurement (mass/volume)Ordered By: Yobany Snell on 04-17-2024 Creatinine [Mass/Vol] 1.17 mg/dL High 0.55-1.02 [facility] Comment on above: The validity of the calculated GFR & GFRAA in patients over 70 years has not been determined. Clinical correlation is essential. Serum or plasma urea nitroge n measurement (mass/volume)Ordered By: Yobany Snell on 04-17-2024 Urea nitrogen [Mass/Vol] 15 mg/dL 7-18 [facility] Sodium levelOrdered By: Yobany Snell on 04-17-2024 Sodium [Moles/Vol] 135 mmol/L Low 136-145 [facility] TSH QnOrdered By: Yobany Snell o n 04-17-2024 Thyroid Stimulating Hormone (TSH) 1.990 uIU/mL 0.358-3.74 0 [facility] Thyroid Stim Hormone (TSH)on 04-17-2024 TSH 1.990 uIU/mL Normal 0.358-3.74 0 [facility] Comment on above: Performed By: #### L 500.4050, L100.0100 #### [facility] [address] [place], [place], [id number] Total proteinOrdered By: Yobany Snell on 04-17-2024 Protein [Mass/Vol] 7.6 g/dL 6.4-8.2 [facility] Triglycerides measurementOrd ered By: Yobany Snell on 04-17-2024 Triglyceride [Mass/Vol] 230 mg/dL High <199 [facility] Comment on above: The drugs N-Acetylcy steine and Metamizole may falsely depress this assay.Serum Triglycerides Reference Interval Normal <150 mg/dL Borderline high 150 - 199 mg/dL High 200 - 499 mg/dL Very High > or = 500 mg/dL Very low density lipoprotein (VLDL) cholesterol measurementOrdered By: Yobany Snell on 04-17-2024 VLDL Cholesterol 46 mg/dL High 5-40 [facility] Vitamin D,25 Hydroxyon 04-17 Vitamin D 25-OH 33.1 ng/mL Normal [facility] Comment on above: Result Comment: Shelbi min D 25(OH) Status Range Deficiency <20 ng/mL (50nmol/L) Insufficiency 20 - 30 ng/mL (50 - 75 nmol/L) Sufficiency 30 - 100 ng/mL (75 - 250 nmol/L) Toxicity >100 ng/mL (>250 nmol/L) Performed By: #### L 500.4050, L100.0100 #### [facility] [address] [place], [address] White blood cell (WBC) count Ordered By: Yobany Snell on 04-17-2024 WBC (Bld) [#/Vol] 11.0 10*3/uL 4.4-11.0 [facility] SCRN MAMM (CAD)W/TERRENCE BILATo n 02-07-2024 SCRN MAMM (CAD)W/TERRENCE BILAT [facility] Services [address] [place] [address] SCRN MAMM (CAD)W/TERRENCE BILAT MR#: [id number] Acct: [id number] Name: NAVIN AUGUST I Rep #: [id number] : 1960 F 63 From: Flo paredes MD PCP: Dr. Yobany Snell MD Status: [facility] Study: SCRN MAMM (CAD)W/TERRENCE BILAT Date of Exam: 01/16 08/07 Exam# [id number] Ordering Dr: Yobany Snell MD [id number] MAMMOGRAPHY - BILATERAL SCREENING REASON FOR EXAM: [...] delay biopsy of a clinically suspicious abnormality. [id number] Electronically Signed: Flo Reyes MD at 8:30 EDT , CC: Dr. Yobany Snell MD [employer]: Signed Normal [facility] CBC W/Diff, Automatedon 08-2 Absolute Lymph 2.13 X10 3/uL Normal 0.83-4.51 [facility] Comment on above: Performed By: #### L 506.1000, L500.4050, L500.4100, L501.9520, L100.0100 #### [facility] [address] [place], [address] Absolute Neut 5.1 X10 3/uL Normal 2.0-7.7 [facility] Comment on above: Performed By: #### L 506.1000, L500.4050, L500.4100, L501.9520, L100.0100 #### [facility] [address] [place], [address] Basophils/100 WBC (Bld) 0.8 % Normal 0-1 [facility] Comment on above: Performed By: #### L 506.1000, L500.4050, L500.4100, L501.9520, L100.0100 #### [facility] [address] [place], [address] Eosinophils/100 WBC (Bld) 1.4 % Normal 0-5 [facility] Comment on above: Performed By: #### L 506.1000, L500.4050, L500.4100, L501.9520, L100.0100 #### [facility] [address] [place], [address] Erythrocyte distribution width (RBC) [Ratio] 12.5 % Normal 11.6-14.6 [facility] Comment on above: Performed By: #### L 506.1000, L500.4050, L500.4100, L501.9520, L100.0100 #### [facility] [address] [place], [address] Hematocrit (Bld) [Volume fraction] 37.1 % Normal 37-47 [facility] Comment on above: Performed By: #### L 506.1000, L500.4050, L500.4100, L501.9520, L100.0100 #### [facility] [address] [place], [address] Hemoglobin (Bld) [Mass/Vol] 12.4 g/dL Normal 12.0-15.0 [facility] Comment on above: Performed By: #### L 506.1000, L500.4050, L500.4100, L501.9520, L100.0100 #### [facility] [address] [place], [address] IG% 0.300 Normal 0.0-0.9 [facility] Comment on above: Result Comment: IG% - Immature Granulocytes (promyelocytes, myelocytes and metamyelocytes) > 1% indicates that a LEFT SHIFT is Present. Performed By: #### L 506.1000, L500.4050, L500.4100, L501.9520, L100.0100 #### [facility] [address] [place], [address] Lymphocytes/100 WBC (Bld) 26.9 % Normal 19-41 [facility] Comment on above: Performed By: #### L 506.1000, L500.4050, L500.4100, L501.9520, L100.0100 #### [facility] [address] [place], [address] MCH (RBC) [Entitic mass] 32.7 pg High 27.0-32.0 [facility] Comment on above: Performed By: #### L 506.1000, L500.4050, L500.4100, L501.9520, L100.0100 #### [facility] [address] [place], [address] MCHC (RBC) [Mass/Vol] 33.4 g/dL Normal 32-36 [facility] Comment on above: Performed By: #### L 506.1000, L500.4050, L500.4100, L501.9520, L100.0100 #### [facility] [address] [place], [address] MCV (RBC) [Entitic vol] 97.9 fL Normal 81-99 [facility] Comment on above: Performed By: #### L 506.1000, L500.4050, L500.4100, L501.9520, L100.0100 #### [facility] [address] [place], [address] Monocytes/100 WBC (Bld) 6.3 % Normal 0-10 [facility] Comment on above: Performed By: #### L 506.1000, L500.4050, L500.4100, L501.9520, L100.0100 #### [facility] [address] [place], [address] Neutrophils/100 WBC (Bld) 64.3 % Normal 47-70 [facility] Comment on above: Performed By: #### L 506.1000, L500.4050, L500.4100, L501.9520, L100.0100 #### [facility] [address] [place], [address] Nucleated RBC (Bld) [#/Vol] 0 10*3/uL Normal 0-5 [facility] Comment on above: Performed By: #### L 506.1000, L500.4050, L500.4100, L501.9520, L100.0100 #### [facility] [address] [place], [address] Platelet mean volume (Bld) [Entitic vol] 8.9 fL Normal 6.2-12.0 [facility] Comment on above: Performed By: #### L 506.1000, L500.4050, L500.4100, L501.9520, L100.0100 #### [facility] [address] [place], [address] Platelets (Bld) [#/Vol] 506 10*3/uL High 150-450 [facility] Comment on above: Performed By: #### L 506.1000, L500.4050, L500.4100, L501.9520, L100.0100 #### [facility] [address] [place], [address] RBC (Bld) [#/Vol] 3.79 10*6/uL Low 4.2-5.4 [facility] [facility] Comment on above: Performed By: #### L 506.1000, L500.4050, L500.4100, L501.9520, L100.0100 #### [facility] [address] [place], [address] RDW SD 44.8 fl High 35.1-43.9 [facility] Comment on above: Performed By: #### L 506.1000, L500.4050, L500.4100, L501.9520, L100.0100 #### [facility] [address] [place], [address] WBC (Bld) [#/Vol] 7.9 10*3/uL Normal 4.4-11.0 [facility] Comment on above: Performed By: #### L 506.1000, L500.4050, L500.4100, L501.9520, L100.0100 #### [facility] [address] [place], [address] Comprehensive Metabolic Prof [facility] 01-12-2024 Albumin [Mass/Vol] 4.0 g/dL Normal 3.2-5.0 [facility] Comment on above: Performed By: #### L 506.1000, L500.4050, L500.4100, L501.9520, L100.0100 #### [facility] [address] [place], [address] Albumin/Globulin [Mass ratio] 1.2 {ratio} Normal 0.9-2.4 [facility] Comment on above: Performed By: #### L 506.1000, L500.4050, L500.4100, L501.9520, L100.0100 #### [facility] [address] [place], [address] ALK P 95 U/L Normal 45-117 [facility] Comment on above: Performed By: #### L 506.1000, L500.4050, L500.4100, L501.9520, L100.0100 #### [facility] [address] [place], [address] ALT [Catalytic activity/Vol] 20 U/L Normal 13-56 [facility] Comment on above: Performed By: #### L 506.1000, L500.4050, L500.4100, L501.9520, L100.0100 #### [facility] [address] [place], [address] AST [Catalytic activity/Vol] 14 U/L Low 15-37 [facility] Comment on above: Performed By: #### L 506.1000, L500.4050, L500.4100, L501.9520, L100.0100 #### [facility] [address] [place], [address] Bilirubin [Mass/Vol] 0.30 mg/dL Normal 0.20-1.00 [facility] Comment on above: Result Comment: For patients on eltrombopag therapy, use of Dimension [place] TBIL is not recommended. Performed By: #### L 506.1000, L500.4050, L500.4100, L501.9520, L100.0100 #### [facility] [address] [place], [address] BUN/CRE 9.1 RATIO Low 10-20 [facility] Comment on above: Performed By: #### L 506.1000, L500.4050, L500.4100, L501.9520, L100.0100 #### [facility] [address] [place], [address] CA,Total 9.2 mg/dL Normal 8.5-10.1 [facility] Comment on above: Performed By: #### L 506.1000, L500.4050, L500.4100, L501.9520, L100.0100 #### [facility] [address] [place], [address] Chloride [Moles/Vol] 97 mmol/L Low 98-107 [facility] Comment on above: Performed By: #### L 506.1000, L500.4050, L500.4100, L501.9520, L100.0100 #### [facility] [address] [place], [address] CO2 [Moles/Vol] 29.0 mmol/L Normal 21.0-32.0 [facility] Comment on above: Performed By: #### L 506.1000, L500.4050, L500.4100, L501.9520, L100.0100 #### [facility] [address] [place], [address] Creatinine [Mass/Vol] 0.99 mg/dL Normal 0.55-1.02 [facility] Comment on above: Result Comment: The validity of the calculated GFR GFRAA in patients over 70 years has not been determined. Clinical correlation is essential. Performed By: #### L 506.1000, L500.4050, L500.4100, L501.9520, L100.0100 #### [facility] [address] [place], [address] EST GFR - AA 73 mL/min Normal >60 [facility] Comment on above: Result Comment: Afri can [place] GFR Calc Performed By: #### L 506.1000, L500.4050, L500.4100, L501.9520, L100.0100 #### [facility] [address] [place], [address] GAP 5 Normal 5-15 [facility] Comment on above: Performed By: #### L 506.1000, L500.4050, L500.4100, L501.9520, L100.0100 #### [facility] [address] [place], [address] GFR/1.73 sq M.predicted among non-blacks MDRD (S/P/Bld) [Vol rate/Area] 60 mL/min/{1.73_m2} Normal >60 [facility] Comment on above: Result Comment: Non- GFR Calc Performed By: #### L 506.1000, L500.4050, L500.4100, L501.9520, L100.0100 #### [facility] [address] [place], [address] Globulin (S) [Mass/Vol] 3.4 g/dL Normal 2.2-4.2 [facility] Comment on above: Performed By: #### L 506.1000, L500.4050, L500.4100, L501.9520, L100.0100 #### [facility] [address] [place], [address] Glucose [Mass/Vol] 109 mg/dL High 74-106 [facility] Comment on above: Result Comment: Fast ing Glucose result from 100 to 125 mg/dL suggests IMPAIRED HOMEOSTASIS per A.D.A. criteria. Performed By: #### L 506.1000, L500.4050, L500.4100, L501.9520, L100.0100 #### [facility] [address] [place], [address] Potassium [Moles/Vol] 3.8 mmol/L Normal 3.5-5.1 [facility] Comment on above: Performed By: #### L 506.1000, L500.4050, L500.4100, L501.9520, L100.0100 #### [facility] [address] [place], [address] Sodium [Moles/Vol] 131 mmol/L Low 136-145 [facility] Comment on above: Performed By: #### L 506.1000, L500.4050, L500.4100, L501.9520, L100.0100 #### [facility] [address] [place], [address] T PROT 7.4 g/dL Normal 6.4-8.2 [facility] Comment on above: Performed By: #### L 506.1000, L500.4050, L500.4100, L501.9520, L100.0100 #### [facility] [address] [place], [address] Urea nitrogen [Mass/Vol] 9 mg/dL Normal 7-18 [facility] Comment on above: Performed By: #### L 506.1000, L500.4050, L500.4100, L501.9520, L100.0100 #### [facility] [address] [place], [address] Lipid Profileon 01-12-2024 Cholesterol [Mass/Vol] 259 mg/dL High 200 [facility] Comment on above: Result Comment: <200 mg/dL Desirable 200-240 mg/dL Borderline >240 mg/dL High Risk Performed By: #### L 506.1000, L500.4050, L500.4100, L501.9520, L100.0100 #### [facility] [address] [place], [address] Cholesterol in HDL [Mass/Vol] 51 mg/dL Normal [facility] Comment on above: Result Comment: The drugs N-Acetylcysteine and Metamizole may falsely depress this assay. Reference Range HDL <40 mg/dL Low HDL Cholesterol HDL >or= 60 mg/dL High HDL Cholesterol Performed By: #### L 506.1000, L500.4050, L500.4100, L501.9520, L100.0100 #### [facility] [address] [place], [address] Cholesterol in LDL [Mass/Vol] 176 mg/dL High 0-130 [facility] Comment on above: Performed By: #### L 506.1000, L500.4050, L500.4100, L501.9520, L100.0100 #### [facility] [address] [place], [address] Cholesterol in VLDL [Mass/Vol] 32 mg/dL Normal 5-40 [facility] Comment on above: Performed By: #### L 506.1000, L500.4050, L500.4100, L501.9520, L100.0100 #### [facility] [address] [place], [address] Triglyceride [Mass/Vol] 160 mg/dL Normal [facility] Comment on above: Result Comment: The drugs N-Acetylcysteine and Metamizole may falsely depress this assay. Serum Triglycerides Reference Interval Normal <150 mg/dL Borderline high 150 - 199 mg/dL High 200 - 499 mg/dL Very High > or = 500 mg/dL Performed By: #### L 506.1000, L500.4050, L500.4100, L501.9520, L100.0100 #### [facility] [address] [place], [address] Thyroid Stim Hormone (TSH)on 01-12-2024 TSH 0.893 uIU/mL Normal 0.358-3.74 0 [facility] Comment on above: Performed By: #### L 506.1000, L500.4050, L500.4100, L501.9520, L100.0100 #### [facility] [address] [place] [place], [address] Vitamin D,25 Hydroxyon 01-11 Vitamin D 25-OH 32.4 ng/mL Normal [facility] Comment on above: Result Comment: Shelbi min D 25(OH) Status Range Deficiency <20 ng/mL (50nmol/L) Insufficiency 20 - 30 ng/mL (50 - 75 nmol/L) Sufficiency 30 - 100 ng/mL (75 - 250 nmol/L) Toxicity >100 ng/mL (>250 nmol/L) Performed By: #### L 506.1000, L500.4050, L500.4100, L501.9520, L100.0100 #### [facility] [address] [place], [address] Absolute lymphocyte countOrd ered By: Yobany Snell on 07-15-2023 Lymphocytes Auto (Unsp spec) [#/Vol] 1.80 10*3/uL 0.83-4.51 [facility] Automated lymphocyte count a s percentage of total leukocytesOrdered By: Yobany Snell on 07-15-2023 Lymphocytes/100 WBC Auto (Unsp spec) 29.4 % 19-41 [facility] Basophil percentageOrdered B y: Yobany Snell on 07-15-2023 Basophils/100 WBC (Bld) 1.1 % 0-1 [facility] Bilirubin [Mass/Vol] 0.30 mg/dL 0.20-1.00 [facility] Comment on above: For patients on eltr ombopag therapy, use of Dimension [place] TBIL is not recommended. Chloride [Moles/Vol] 101 mmol/L 98-107 [facility] Cholesterol [Mass/Vol] 244 mg/dL <200 [facility] Comment on above: <200 mg/dL Desirable 200-240 mg/dL Borderline >240 mg/dL High Risk Eosinophils/100 WBC (Bld) 2.8 % 0-5 [facility] Glucose [Mass/Vol] 118 mg/dL 74-106 [facility] Comment on above: Fasting Glucose resu lt from 100 to 125 mg/dL suggests IMPAIRED HOMEOSTASIS per A.D.A. criteria. Hemoglobin (Bld) [Mass/Vol] 13.8 g/dL 12.0-15.0 [facility] Monocytes/100 WBC (Bld) 7.7 % 0-10 [facility] Neutrophils (Bld) [#/Vol] 3.6 10*3/uL 2.0-7.7 [facility] Neutrophils/100 WBC (Bld) 58.7 % 47-70 [facility] Potassium [Moles/Vol] 4.1 mmol/L 3.5-5.1 [facility] Protein [Mass/Vol] 7.6 g/dL 6.4-8.2 [facility] Sodium [Moles/Vol] 135 mmol/L 136-145 [facility] Triglyceride [Mass/Vol] 128 mg/dL <199 [facility] Comment on above: The drugs N-Acetylcy steine and Metamizole may falsely depress this assay.Serum Triglycerides Reference Interval Normal <150 mg/dL Borderline high 150 - 199 mg/dL High 200 - 499 mg/dL Very High > or = 500 mg/dL WBC (Bld) [#/Vol] 6.1 10*3/uL 4.4-11.0 [facility] Determination of erythrocyte mean corpuscular volume (MCV)Ordered By: Yobany Snell on 07-15-2023 MCV (RBC) [Entitic vol] 96.0 fL 81-99 [facility] Erythrocyte distribution wid th ratioOrdered By: Yobany Snell 07-15-2023 Erythrocyte distribution width (RBC) [Ratio] 12.3 % 11.6-14.6 [facility] Erythrocyte distribution wid th standard deviationOrdered By: Yobany Snell on 07-15-2023 Erythrocyte distribution width (RBC) [Entitic vol] 43.5 fL 35.1-43.9 [facility] Hematocrit Auto (Bld) [Volum e fraction]Ordered By: Yobany Snell 07-15-2023 Hematocrit (Bld) [Volume fraction] 40.7 % 37-47 [facility] Immature granulocytes/100 WB C Auto (Bld)Ordered By: Yobany Snell on 07-15-2023 Immature granulocytes/100 WBC (Bld) 0.300 % 0.0-0.9 [facility] Comment on above: IG% - Immature Granu locytes (promyelocytes, myelocytes and metamyelocytes) > 1% indicates that a LEFT SHIFT is Present. Laboratory - Chemistry and C hemistry - challengeOrdered By: Yobany Snell on 07-15-2023 Albumin/Globulin [Mass ratio] 1.1 {ratio} 0.9-2.4 [facility] ALP [Catalytic activity/Vol] 100 U/L 45-117 [facility] ALT [Catalytic activity/Vol] 17 U/L 13-56 [facility] Cholesterol in HDL [Mass/Vol] 48 mg/dL >40 [facility] Comment on above: The drugs N-Acetylcy steine and Metamizole may falsely depress this assay. Reference Range HDL <40 mg/dL Low HDL Cholesterol HDL >or= 60 mg/dL High HDL Cholesterol Cholesterol in LDL [Mass/Vol] 170 mg/dL 0-130 [facility] CO2 [Moles/Vol] 28.0 mmol/L 21.0-32.0 [facility] Globulin (S) [Mass/Vol] 3.6 g/dL 2.2-4.2 [facility] Urea nitrogen/Creatinine [Mass ratio] 11.8 mg/mg 10-20 [facility] - Hematology and Cell countsOrdered By: Yobany Snell on 07-15-2023 MCH (RBC) [Entitic mass] 32.5 pg 27.0-32.0 [facility] MCHC (RBC) [Mass/Vol] 33.9 g/dL 32-36 [facility] Nucleated RBC/100 WBC (Bld) [Ratio] 0 % 0-5 [facility] Platelet mean volume (Bld) [Entitic vol] 9.2 fL 6.2-12.0 [facility] Platelets (Bld) [#/Vol] 429 10*3/uL 150-450 [facility] No Panel InformationOrdered By: Yobany Snell on 07-15-2023 Estimated GFR (MDRD) Amer 64 mL/min >60 [facility] Comment on above: GFR Calc Estimated GFR (MDRD) Non-Af Amer 53 mL/min >60 [facility] Comment on above: Non- GFR Calc VLDL Cholesterol 26 mg/dL 5-40 [facility] RBC Auto (Bld) [#/Vol]Ordere d By: Yobany Snell on 07-15-2023 RBC (Bld) [#/Vol] 4.24 10*6/uL 4.2-5.4 [facility] Serum or plasma calcium chace urement (mass/volume)Ordered By: Yobany Snell on 07-15-2023 Calcium [Mass/Vol] 9.5 mg/dL 8.5-10.1 [facility] Serum or plasma creatinine m easurement (mass/volume)Ordered By: Yoabny Snell on 07-15-2023 Creatinine [Mass/Vol] 1.10 mg/dL 0.55-1.02 [facility] Comment on above: The validity of the calculated GFR & GFRAA in patients over 70 years has not been determined. Clinical correlation is essential. Serum or plasma thyroid stim ulating hormone (TSH) measurement (units/volume)Ordered By: Yobany Snell on 07-15-2023 TSH Qn 1.41 uIU/mL 0.358-3.74 [facility] Serum or plasma urea nitroge n measurement (mass/volume)Ordered By: Yobany Snell on 07-15-2023 Urea nitrogen [Mass/Vol] 13 mg/dL 7-18 [facility] Thin prep Papanicolaou smear with manual screeningOrdered By: Yobany Snell on 07-15-2023 Thin prep Papanicolaou smear with manual screening 4.0 g/dL 3.2-5.0 [facility] Thin prep Papanicolaou smear with manual screening 15 U/L 15-37 [facility] Thin prep Papanicolaou smear with manual screening 6 5-15 [facility] No Panel InformationOrdered By: Yobany Snell on 06-24-2023 Miscellaneous Test See comment [facility] Comment on above: TEST RESULTS LIMITSB [...] (1,2).Additionally, studies have demonstrated that a CSF ctdd-wvcfaci4-02/1-40 ratio is a better predictor for diagnosing AD than betaamyloid 1-42 levels alone (3). This assay should be used as an adjunct to neurologic evaluation, including diagnostic imaging, cognitive performance scales and other biomarkers of AD.The performance of the [employer] beta-amyloid 42/40 ratio test on the [employer]ipulse platform (cutoff = 0.058; sensitivity, specificity, PPV, [...] beta-amyloid ratio (1-42/1-40). Alzheimer's Dementia: 16 (Suppl.4): [id number]. Presented at the Alzheimer's Association International Conference 2020, virtual meeting.2. Vesna Bray, Shi J, Kerwin L, et al. Agreement of amyloid PET and CSF biomarkers for Alzheimer's disease on Lumipulse. Annals of Clinical and Translational Neurology 2019; 6(9): 9499-8559.3. Tom Machuca, Manny S, Carroll M, Tracey H and Mateus P. Advantages and disadvantages of the use of the CSF Amyloid beta (A beta) 42/40 ratio in the diagnosis of Alzheimer's Disease. Alz Res / Ther (2019) 11:34.This test was developed and its performance characteristicsdetermined by [employer]. It has not been cleared or approvedby the Food and Drug Administration. TESTING PERFORMED AT [facility]. ORIGINAL REPORT ON FILE IN LAB CONTAINS ADDITIONAL TEST SITE INFORMATION. Basophil percentageOrdered B y: Yobany Snell on 05-03-2023 Chloride [Moles/Vol] 99 mmol/L 98-107 [facility] Glucose [Mass/Vol] 101 mg/dL 74-106 [facility] Comment on above: Fasting Glucose resu lt from 100 to 125 mg/dL suggests IMPAIRED HOMEOSTASIS per A.D.A. criteria. Potassium [Moles/Vol] 3.6 mmol/L 3.5-5.1 [facility] Sodium [Moles/Vol] 135 mmol/L 136-145 [facility] - Chemistry and C hemistry - challengeOrdered By: Yobany Snell on 05-03-2023 CO2 [Moles/Vol] 29.0 mmol/L 21.0-32.0 [facility] Sodium (U) [Moles/Vol] 32 mmol/L Not Establ. [facility] Urea nitrogen/Creatinine [Mass ratio] 6.4 mg/mg 10-20 [facility] No Panel InformationOrdered By: Yobany Snell on 05-03-2023 Estimated GFR (MDRD) Amer 65 mL/min >60 [facility] Comment on above: GFR Calc Estimated GFR (MDRD) Non-Af Amer 54 mL/min >60 [facility] Comment on above: Non- GFR Calc Serum or plasma calcium chace urement (mass/volume)Ordered By: Yobany Snell on 05-03-2023 Calcium [Mass/Vol] 9.0 mg/dL 8.5-10.1 [facility] Serum or plasma creatinine m easurement (mass/volume)Ordered By: Yobany Snell on 05-03-2023 Creatinine [Mass/Vol] 1.09 mg/dL 0.55-1.02 [facility] Comment on above: The validity of the calculated GFR & GFRAA in patients over 70 years has not been determined. Clinical correlation is essential. Serum or plasma urea nitroge n measurement (mass/volume)Ordered By: Yobany Snell on 05-03-2023 Urea nitrogen [Mass/Vol] 7 mg/dL 7-18 [facility] Thin prep Papanicolaou smear with manual screeningOrdered By: Yobany Snell on 05-03-2023 Thin prep Papanicolaou smear with manual screening 7 5-15 [facility] Thin prep Papanicolaou smear with manual screening 280 mOsm/KG 280-301 [facility] Urine osmolality measurement Ordered By: Yobany Snell on 05-03-2023 Osmolality (U) [Osmolality] 106 mOsm/KG >50 [facility] Comment on above: Normal Urine Referen ce Ranges Random: 50 - 1200 mOsm/kg H20 depending on fluid intake Random: >850 mOsm/kg after 12 hour fluid restriction 24 hour: ~300 - 900 mOsm/kg H2O Absolute lymphocyte countOrd ered By: Zi San on 04-25-2023 Lymphocytes Auto (Unsp spec) [#/Vol] 2.19 10*3/uL 0.83-4.51 [facility] Basophil percentageOrdered B y: Zi San on 04-25-2023 Basophils/100 WBC (Bld) 0.9 % 0-1 [facility] Chloride [Moles/Vol] 93 mmol/L 98-107 [facility] Eosinophils/100 WBC (Bld) 1.7 % 0-5 [facility] Glucose [Mass/Vol] 120 mg/dL 74-106 [facility] Comment on above: Fasting Glucose resu lt from 100 to 125 mg/dL suggests IMPAIRED HOMEOSTASIS per A.D.A. criteria. Neutrophils (Bld) [#/Vol] 4.7 10*3/uL 2.0-7.7 [facility] Neutrophils/100 WBC (Bld) 61.2 % 47-70 [facility] Potassium [Moles/Vol] 3.5 mmol/L 3.5-5.1 [facility] Sodium [Moles/Vol] 127 mmol/L 136-145 [facility] WBC (Bld) [#/Vol] 7.6 10*3/uL 4.4-11.0 [facility] Blood erythrocytes count (nu mber/volume)Ordered By: Zi San on 04-25-2023 RBC (Bld) [#/Vol] 4.32 10*6/uL 4.2-5.4 [facility] Blood hemoglobin measurement (mass/volume)Ordered By: Zi San on 04-25-2023 Hemoglobin (Bld) [Mass/Vol] 14.0 g/dL 12.0-15.0 [facility] Blood lymphocytes/100 leukoc ytesOrdered By: Zi San on 04-25-2023 Lymphocytes/100 WBC (Bld) 28.7 % 19-41 [facility] Blood monocytes/100 leukocyt esOrdered By: Zi San on 04-25-2023 Monocytes/100 WBC (Bld) 7.2 % 0-10 [facility] Blood platelet mean volumeOr dered By: Zi San on 04-25-2023 Platelet mean volume (Bld) [Entitic vol] 8.7 fL 6.2-12.0 [facility] Determination of erythrocyte mean corpuscular volume (MCV)Ordered By: Zi San on 04-25-2023 MCV (RBC) [Entitic vol] 97.2 fL 81-99 [facility] Hematocrit Auto (Bld) [Volum e fraction]Ordered By: Zi San on 04-25-2023 Hematocrit (Bld) [Volume fraction] 42.0 % 37-47 [facility] - Chemistry and C hemistry - challengeOrdered By: Zi San on 04-25-2023 CO2 [Moles/Vol] 28.0 mmol/L 21.0-32.0 [facility] Urea nitrogen/Creatinine [Mass ratio] 5.0 mg/mg 10-20 [facility] - Hematology and Cell countsOrdered By: Zi San on 04-25-2023 Erythrocyte distribution width (RBC) [Entitic vol] 43.5 fL 35.1-43.9 [facility] Erythrocyte distribution width (RBC) [Ratio] 12.0 % 11.6-14.6 [facility] Immature granulocytes/100 WBC (Bld) 0.300 % 0.0-0.9 [facility] Comment on above: IG% - Immature Granu locytes (promyelocytes, myelocytes and metamyelocytes) > 1% indicates that a LEFT SHIFT is Present. MCH (RBC) [Entitic mass] 32.4 pg 27.0-32.0 [facility] Nucleated RBC/100 WBC (Bld) [Ratio] 0 % 0-5 [facility] MCHC Auto (RBC) [Mass/Vol]Or dered By: Zi San on 04-25-2023 MCHC (RBC) [Mass/Vol] 33.3 g/dL 32-36 [facility] No Panel InformationOrdered By: Zi San on 04-25-2023 Estimated Creatinine Clearance Calc 52.68 ml/min [facility] Estimated GFR (MDRD) Amer 71 mL/min >60 [facility] Comment on above: GFR Calc Estimated GFR (MDRD) Non-Af Amer 59 mL/min >60 [facility] Comment on above: Non- GFR Calc Platelets bldOrdered By: Thee San on 04-25-2023 Platelets (Bld) [#/Vol] 415 10*3/uL 150-450 [facility] Serum or plasma calcium chace urement (mass/volume)Ordered By: Zi San on 04-25-2023 Calcium [Mass/Vol] 9.3 mg/dL 8.5-10.1 [facility] Serum or plasma creatinine m easurement (mass/volume)Ordered By: Zi San on 04-25-2023 Creatinine [Mass/Vol] 1.01 mg/dL 0.55-1.02 [facility] Comment on above: The validity of the calculated GFR & GFRAA in patients over 70 years has not been determined. Clinical correlation is essential. Serum or plasma urea nitroge n measurement (mass/volume)Ordered By: Zi San on 04-25-2023 Urea nitrogen [Mass/Vol] 5 mg/dL 7-18 [facility] Thin prep Papanicolaou smear with manual screeningOrdered By: Zi San on 04-25-2023 Thin prep Papanicolaou smear with manual screening 6 5-15 [facility] Absolute lymphocyte countOrd ered By: Yobany Snell on 04-15-2023 Lymphocytes Auto (Unsp spec) [#/Vol] 1.79 10*3/uL 0.83-4.51 [facility] Basophil percentageOrdered B y: Yobany Snell on 04-15-2023 Basophils/100 WBC (Bld) 1.3 % 0-1 [facility] Bilirubin [Mass/Vol] 0.40 mg/dL 0.20-1.00 [facility] Comment on above: For patients on eltr ombopag therapy, use of Dimension [place] TBIL is not recommended. Chloride [Moles/Vol] 97 mmol/L 98-107 [facility] Cholesterol [Mass/Vol] 277 mg/dL <200 [facility] Comment on above: <200 mg/dL Desirable 200-240 mg/dL Borderline >240 mg/dL High Risk Eosinophils/100 WBC (Bld) 1.6 % 0-5 [facility] Glucose [Mass/Vol] 122 mg/dL 74-106 [facility] Comment on above: Fasting Glucose resu lt from 100 to 125 mg/dL suggests IMPAIRED HOMEOSTASIS per A.D.A. criteria. Neutrophils (Bld) [#/Vol] 6.2 10*3/uL 2.0-7.7 [facility] Neutrophils/100 WBC (Bld) 70.7 % 47-70 [facility] Potassium [Moles/Vol] 3.8 mmol/L 3.5-5.1 [facility] Protein [Mass/Vol] 8.0 g/dL 6.4-8.2 [facility] Sodium [Moles/Vol] 132 mmol/L 136-145 [facility] Triglyceride [Mass/Vol] 174 mg/dL <199 [facility] Comment on above: The drugs N-Acetylcy steine and Metamizole may falsely depress this assay.Serum Triglycerides Reference Interval Normal <150 mg/dL Borderline high 150 - 199 mg/dL High 200 - 499 mg/dL Very High > or = 500 mg/dL WBC (Bld) [#/Vol] 8.7 10*3/uL 4.4-11.0 [facility] Blood erythrocytes count (nu mber/volume)Ordered By: Yobany Snell on 04-15-2023 RBC (Bld) [#/Vol] 4.40 10*6/uL 4.2-5.4 [facility] Blood hemoglobin measurement (mass/volume)Ordered By: Yobany Snell on 04-15-2023 Hemoglobin (Bld) [Mass/Vol] 14.3 g/dL 12.0-15.0 [facility] Blood lymphocytes/100 leukoc ytesOrdered By: [facility] on 04-15-2023 Lymphocytes/100 WBC (Bld) 20.5 % 19-41 [facility] Blood monocytes/100 leukocyt esOrdered By: [facility] on 04-[facility] Monocytes/100 WBC (Bld) 5.6 % 0-10 [facility] Blood platelet mean volumeOr dered By: [facility] Platelet mean volume (Bld) [Entitic vol] 9.2 fL 6.2-12.0 [facility] Determination of erythrocyte mean corpuscular volume (MCV)[facility]: [facility] MCV (RBC) [Entitic vol] 98.2 fL 81-99 [facility] Hematocrit Auto (Bld) [Volum e fraction]Ordered By: [facility] on 04-15-2023 Hematocrit (Bld) [Volume fraction] 43.2 % 37-47 [facility] Laboratory - Chemistry and C hemistry - challengeOrdered By: [facility] on 04-15-2023 ALP [Catalytic activity/Vol] 89 U/L 45-117 [facility] ALT [Catalytic activity/Vol] 21 U/L 13-56 [facility] CO2 [Moles/Vol] 27.0 mmol/L 21.0-32.0 [facility] Globulin (S) [Mass/Vol] 3.8 g/dL 2.2-4.2 [facility] Urea nitrogen/Creatinine [Mass ratio] 7.3 mg/mg 10-20 [facility] Laboratory - Hematology and Cell countsOrdered By: [facility] on 04-15-2023 Erythrocyte distribution width (RBC) [Entitic vol] 45.5 fL 35.1-43.9 [facility] Erythrocyte distribution width (RBC) [Ratio] 12.7 % 11.6-14.6 [facility] Immature granulocytes/100 WBC (Bld) 0.300 % 0.0-0.9 [facility] Comment on above: IG% - Immature Granu locytes (promyelocytes, myelocytes and metamyelocytes) > 1% indicates that a LEFT SHIFT is Present. MCH (RBC) [Entitic mass] 32.5 pg 27.0-32.0 [facility] Nucleated RBC/100 WBC (Bld) [Ratio] 0 % 0-5 [facility] MCHC Auto (RBC) [Mass/Vol]Or dered By: Yobany Snell on 04-15-2023 MCHC (RBC) [Mass/Vol] 33.1 g/dL 32-36 [facility] No Panel InformationOrdered By: Yobany Snell on 04-15-2023 Estimated GFR (MDRD) Amer 56 mL/min >60 [facility] Comment on above: GFR Calc Estimated GFR (MDRD) Non-Af Amer 46 mL/min >60 [facility] Comment on above: Non- GFR Calc Miscellaneous Test See comment [facility] Comment on above: TEST RESULTS LIMITSA NBA Alzheimer's RiskMethodology: Patient DNA is assayed for the APOE genotype by PCRamplification of a specific region in exon 4 of the APOEgene followed by digestion with restriction enzyme [employer] Iand separation of fragments by polyacrylamide gelelectrophoresis. This approach allows the APOE E2, E3, andE4 alleles to be distinguished. Analytical sensitivity andspecificity are >99.5%. Individuals are interpreted ashaving one of the following genotypes: E2/E2, E3/E3, E4/E4,E2/E3, E2/E4, E3/E4.APO E Genotyping Result: E3/K9Vpiibumawmvewn: Negative for the APOE4 variant that is [...] analysis.For inquiries or genetic consultation, please call [facility] .Comment: INFORMATION ABOUT THE APOE GENOTYPE AND ALZHEIMER'S DISEASEAlzheimer's disease (AD) is the most common form ofdementia in the elderly and currently affects more than 5million Americans. It is a progressive neurodegenerativedisorder with brain findings of plaques and neurofibrillarytangles containing beta-amyloid and tau proteinrespectively.The predominant form of AD is late onset (age > 60-65),which can be familial (15-20%) or sporadic. The [id number] increases the risk for late onset AD and maycontribute to the pathology of the disease. This risk isincreased by approximately 2 to 3-fold for individuals withone copy of the APOE4 variant and by approximately 20to67-japk for individuals with two copies of this [...] with late onset AD, the presence of HOPC9tko lead to earlier development of symptoms.However, APOE4 [...] was developed and its performance characteristicsdetermined by [employer]. It has not been cleared or approvedby the Food and Drug Administration. The FDA has determinedthat such clearance or approval is not necessary.REFERENCESAlálvaro Valladares et al. Sex modifies the APOE-related risk ofdeveloping Alzheimer disease. Annal Grrcsy3881;75(4):563-573Bird TD. Alzheimer Disease Overview. Nellyeviedinesh(internet). Miracle PFEIFFER et al., editors. [facility], [place], [place]. Last revised 2014.Berna SWENSON et al. Genetic counseling and testing forAlzheimer disease: Joint practice guidelines of theT[place] College of [employer] Genetics and the [facility] of Genetic Counselors. Sherie in [id number];[phone])[phone].Casi BOSS. Apolipoprotein E: Implications for ADneurobiology, epidemiology and risk assessment.Neurobiology of Aging 2011;32:778-790. [facility]. ORIGINAL REPORT ON FILE IN LAB CONTAINS ADDITIONAL TEST SITE INFORMATION. Thyroid Stimulating Hormone (TSH) 2.01 uIU/mL 0.358-3.74 [facility] Vitamin D 25-Hydroxy 29.8 ng/mL [facility] Comment on above: Vitamin D 25(OH) Sta tus Range Deficiency <20 ng/mL (50nmol/L) Insufficiency 20 - 30 ng/mL (50 - 75 nmol/L) Sufficiency 30 - 100 ng/mL (75 - 250 nmol/L) Toxicity >100 ng/mL (>250 nmol/L) Platelets bldOrdered By: Yobany Snell on 04-15-2023 Platelets (Bld) [#/Vol] 477 10*3/uL 150-450 [facility] Serum or plasma albumin chace urement (mass/volume)Ordered By: Yobany Snell on 04-15-2023 Albumin [Mass/Vol] 4.2 g/dL 3.2-5.0 [facility] Serum or plasma albumin/glob ulin mass ratioOrdered By: Yobany Snell on 04-15-2023 Albumin/Globulin [Mass ratio] 1.1 {ratio} 0.9-2.4 [facility] Serum or plasma calcium chace urement (mass/volume)Ordered By: Yobany Snell 04-15-2023 Calcium [Mass/Vol] 9.1 mg/dL 8.5-10.1 [facility] Serum or plasma cholesterol in HDL measurement (mass/volume)Ordered By: Yobany Snell on 04-15-2023 Cholesterol in HDL [Mass/Vol] 55 mg/dL >40 [facility] Comment on above: The drugs N-Acetylcy steine and Metamizole may falsely depress this assay. Reference Range HDL <40 mg/dL Low HDL Cholesterol HDL >or= 60 mg/dL High HDL Cholesterol Serum or plasma cholesterol in VLDL measurement (mass/volume)Ordered By: Yobany Snell 04-15-2023 Cholesterol in VLDL [Mass/Vol] 35 mg/dL 5-40 [facility] Serum or plasma creatinine m easurement (mass/volume)Ordered By: Yobany Snell 04-15-2023 Creatinine [Mass/Vol] 1.24 mg/dL 0.55-1.02 [facility] Comment on above: The validity of the calculated GFR & GFRAA in patients over 70 years has not been determined. Clinical correlation is essential. Serum or plasma low density lipoprotein (LDL) cholesterol measurement (mass/volume)Ordered By: Yobany Snell 04-15-2023 Cholesterol in LDL [Mass/Vol] 187 mg/dL 0-130 [facility] Serum or plasma urea nitroge n measurement (mass/volume)Ordered By: Yobany Snell 04-15-2023 Urea nitrogen [Mass/Vol] 9 mg/dL 7-18 [facility] Thin prep Papanicolaou smear with manual screeningOrdered By: Yobany Snell 04-15-2023 Thin prep Papanicolaou smear with manual screening 12 U/L 15-37 [facility] Thin prep Papanicolaou smear with manual screening 8 5-15 [facility] Laboratory - Microbiology an d Antimicrobial susceptibilityOrdered By: Yobany Snell on 04-01-2023 SARS-CoV-2 (COVID-19) RNA CORAL+probe Ql (Unsp spec) [facility] No Panel InformationOrdered By: Yobany Snell on 04-01-2023 Influenza Types A,B Direct FA (RK) [facility] RSV Ag EIAOrdered By: Yobany Silva steven on 04-01-2023 RSV Ag Immune stain Ql (Tiss) [facility] Absolute lymphocyte countOrd ered By: Yobany Snell on 01-07-2023 Lymphocytes Auto (Unsp spec) [#/Vol] 2.31 10*3/uL 0.83-4.51 [facility] Basophil percentageOrdered B y: Yobany Snell on 01-07-2023 Basophils/100 WBC (Bld) 0.9 % 0-1 [facility] Bilirubin [Mass/Vol] 0.30 mg/dL 0.20-1.00 [facility] Comment on above: For patients on eltr ombopag therapy, use of [place] TBIL is not recommended. Chloride [Moles/Vol] 102 mmol/L 98-107 [facility] Cholesterol [Mass/Vol] 227 mg/dL <200 [facility] Comment on above: <200 mg/dL Desirable 200-240 mg/dL Borderline >240 mg/dL High Risk Eosinophils/100 WBC (Bld) 2.6 % 0-5 [facility] Glucose [Mass/Vol] 102 mg/dL 74-106 [facility] Comment on above: Fasting Glucose resu lt from 100 to 125 mg/dL suggests IMPAIRED HOMEOSTASIS per A.D.A. criteria. Neutrophils (Bld) [#/Vol] 5.0 10*3/uL 2.0-7.7 [facility] Neutrophils/100 WBC (Bld) 61.4 % 47-70 [facility] Potassium [Moles/Vol] 4.2 mmol/L 3.5-5.1 [facility] Protein [Mass/Vol] 7.5 g/dL 6.4-8.2 [facility] Sodium [Moles/Vol] 137 mmol/L 136-145 [facility] Triglyceride [Mass/Vol] 153 mg/dL <199 [facility] Comment on above: The drugs N-Acetylcy steine and Metamizole may falsely depress this assay.Serum Triglycerides Reference Interval Normal <150 mg/dL Borderline high 150 - 199 mg/dL High 200 - 499 mg/dL Very High > or = 500 mg/dL WBC (Bld) [#/Vol] 8.1 10*3/uL 4.4-11.0 [facility] Blood erythrocytes count (nu mber/volume)Ordered By: Yobany Silvaok on 01-07-2023 RBC (Bld) [#/Vol] 4.11 10*6/uL 4.2-5.4 [facility] Blood hemoglobin measurement (mass/volume)Ordered By: [facility] on 01-07-2023 Hemoglobin (Bld) [Mass/Vol] 13.8 g/dL 12.0-15.0 [facility] Blood lymphocytes/100 leukoc ytesOrdered By: [facility] on 01-07-2023 Lymphocytes/100 WBC (Bld) 28.7 % 19-41 [facility] Blood monocytes/100 leukocyt esOrdered By: [facility] on 01-07-2023 Monocytes/100 WBC (Bld) 6.0 % 0-10 [facility] Blood platelet mean volumeOr dered By: [facility] on 01-07-2023 Platelet mean volume (Bld) [Entitic vol] 9.7 fL 6.2-12.0 [facility] Determination of erythrocyte mean corpuscular volume (MCV)Ordered By: Yobany [facility] on 01-07-2023 MCV (RBC) [Entitic vol] 102.7 fL 81-99 [facility] Hematocrit Auto (Bld) [Volum e fraction]Ordered By: [facility] on 01-07-2023 Hematocrit (Bld) [Volume fraction] 42.2 % 37-47 [facility] Laboratory - Chemistry and C hemistry - challengeOrdered By: [facility] on 01-07-2023 ALP [Catalytic activity/Vol] 110 U/L 45-117 [facility] ALT [Catalytic activity/Vol] 17 U/L 13-56 [facility] CO2 [Moles/Vol] 28.0 mmol/L 21.0-32.0 [facility] Globulin (S) [Mass/Vol] 3.6 g/dL 2.2-4.2 [facility] Urea nitrogen/Creatinine [Mass ratio] 11.6 mg/mg 10-20 [facility] Laboratory - Hematology and Cell countsOrdered By: Yobany Snell on 01-07-2023 Erythrocyte distribution width (RBC) [Entitic vol] 48.0 fL 35.1-43.9 [facility] Erythrocyte distribution width (RBC) [Ratio] 12.6 % 11.6-14.6 [facility] Immature granulocytes/100 WBC (Bld) 0.400 % 0.0-0.9 [facility] Comment on above: IG% - Immature Granu locytes (promyelocytes, myelocytes and metamyelocytes) > 1% indicates that a LEFT SHIFT is Present. MCH (RBC) [Entitic mass] 33.6 pg 27.0-32.0 [facility] Nucleated RBC/100 WBC (Bld) [Ratio] 0 % 0-5 [facility] MCHC Auto (RBC) [Mass/Vol]Or dered By: Yobany Snell on 01-07-2023 MCHC (RBC) [Mass/Vol] 32.7 g/dL 32-36 [facility] No Panel InformationOrdered By: Yobany Snell on 01-07-2023 Estimated GFR (MDRD) Amer 63 mL/min >60 [facility] Comment on above: GFR Calc Estimated GFR (MDRD) Non-Af Amer 52 mL/min >60 [facility] Comment on above: Non- GFR Calc Thyroid Stimulating Hormone (TSH) 1.09 uIU/mL 0.358-3.74 [facility] Platelets bldOrdered By: Yobany Snell on 01-07-2023 Platelets (Bld) [#/Vol] 458 10*3/uL 150-450 [facility] Serum or plasma albumin chace urement (mass/volume)Ordered By: Yobany Snell on 01-07-2023 Albumin [Mass/Vol] 3.9 g/dL 3.2-5.0 [facility] Serum or plasma albumin/glob ulin mass ratioOrdered By: Yobany Snell on 01-07-2023 Albumin/Globulin [Mass ratio] 1.1 {ratio} 0.9-2.4 [facility] Serum or plasma calcium chace urement (mass/volume)Ordered By: Yobany Snell on 01-07-2023 Calcium [Mass/Vol] 9.2 mg/dL 8.5-10.1 [facility] Serum or plasma cholesterol in HDL measurement (mass/volume)Ordered By: Yobany [facility] on 01-07-2023 Cholesterol in HDL [Mass/Vol] 49 mg/dL >40 [facility] Comment on above: The drugs N-Acetylcy steine and Metamizole may falsely depress this assay. Reference Range HDL <40 mg/dL Low HDL Cholesterol HDL >or= 60 mg/dL High HDL Cholesterol Serum or plasma cholesterol in VLDL measurement (mass/volume)Ordered By: Y[facility]any [facility] on 01-07-2023 Cholesterol in VLDL [Mass/Vol] 31 mg/dL 5-40 [facility] Serum or plasma creatinine m easurement (mass/volume)Ordered By: Yobany Snell 01-07-2023 Creatinine [Mass/Vol] 1.12 mg/dL 0.55-1.02 [facility] Comment on above: The validity of the calculated GFR & GFRAA in patients over 70 years has not been determined. Clinical correlation is essential. Serum or plasma low density lipoprotein (LDL) cholesterol measurement (mass/volume)Ordered By: Yobany [facility] 01-07-2023 Cholesterol in LDL [Mass/Vol] 147 mg/dL 0-130 [facility] Serum or plasma urea nitroge n measurement (mass/volume)Ordered By: Yobany [facility] 01-07-2023 Urea nitrogen [Mass/Vol] 13 mg/dL 7-18 [facility] Thin prep Papanicolaou smear with manual screeningOrdered By: Yobany Snell 01-07-2023 Thin prep Papanicolaou smear with manual screening 13 U/L 15-37 [facility] Thin prep Papanicolaou smear with manual screening 7 5-15 [facility] CNPNon 11-05-2022 DONATON Telephone (ANDRES) -- NAVIN AUGUST ([id number]) 1960 F Date Time Provider Department 11/05/22 [...] * HEADACHE [R51] MYALGIA AND MYOSITIS NOS [[id number]] Abnormal Weight Gain [R63.5] 05/19/2007 01/15/2010 PERS [...] [M47.816] 08/18/2017 Sacroiliitis (HCC) [M46.1] 08/18/2017 Other halfway (current) drug therapy [Z79.899]11/21/2018 Knee pain [M25.569] 05/24/2019 Fibromyalgia [M79.7] 08/18/2017 Asthma [J45.909] 10/13/2019 Encounter Status:Closed by NEFTALY COKER on 11/05/22 [facility] [place] 10-27-2022 DONATON Telephone (PAMMJK) -- NAVIN AUGUST ([id number]) 1960 F Date Time Provider Department 10/27/22 [...] * HEADACHE [R51] MYALGIA AND MYOSITIS NOS [[id number]] Abnormal Weight Gain [R63.5] 05/19/2007 01/15/2010 PERS [...] t* 3 10/27/2022 02/24/2023 Cmt: Prefers this [facility] pharmacy [facility] [id number] Route: ORAL Sig: Take 1 tablet by mouth three times daily as needed. CLONIDINE HCL 0.1 MG TABLET 14 t* 0 10/27/2022 11/03/2022 Cmt: [facility] [id number] Route: ORAL Sig: Take 1 tablet by mouth twice daily for 7 days. Take for symptoms of opiate withdrawal Medications Discontinued During This Encounter Prescriptions - cloNIDine HCl (CATAPRES) 0.1 mg tablet (Discont (more content not included)... [facility] CNOVon 09-11-2022 CNOV Office Visit (PAMMJK ) -- NAVIN AUGUST ([id number]) 1960 F Date Time Provider Department 09/11/22 2:00 PM NELSY CHAUDHARI During your visit today, we recorded the following information about you: Temperature Pulse Respiration Blood pressure 97.4 degrees 93/minute 18/minute 141/96 Nelsy Chaudhari PA-C 09/11/2022 2:24 PM Signed This note was created using TheWrap. Subjective Navin August is a 62 year [...] this. Continue using (more content not included)... [facility] (ANDRES[facility] -- MATANAVIN ([id number]) 1960 F Date Time Provider Department 07/27/22 [...] * HEADACHE [R51] MYALGIA AND MYOSITIS NOS [[id number]] Abnormal Weight Gain [R63.5] 05/19/2007 01/15/2010 PERS [...] Encounter Status:Closed by LILIANA GRAHAM on 07/28/22 [facility] [place] 07-23-2022 CNPN Telephone (ANDRES) -- NAVIN AUGUST ([id number]) 1960 F Date Time Provider Department 07/23/22 [...] * HEADACHE [R51] MYALGIA AND MYOSITIS NOS [[id number]] Abnormal Weight Gain [R63.5] 05/19/2007 01/15/2010 PERS [...] [M47.816] 08/18/2017 Sacroiliitis (HCC) [M46.1] 08/18/2017 Other halfway (current) drug therapy [Z79.899]11/21/2018 Knee pain [M25.569] 05/24/2019 Fibromyalgia [M79.7] 08/18/2017 Asthma [J45.909] 10/13/2019 Encounter Status:Closed by LILIANA GRAHAM on 07/23/22 [facility] Laboratory - Microbiology an d Antimicrobial susceptibilityOrdered By: Dr. Snell on 06-16-2022 SARS-CoV-2 (COVID-19) RNA CORAL+probe Ql (Unsp spec) Detected Not Detect [facility] Comment on above: Normal Reference Ran [...] 06-16-2022 Influenza Types A,B Direct FA (RK) [facility] RSV Ag EIAOrdered By: Dr. Ricardo harris on 06-16-2022 RSV Ag Immune stain Ql (Tiss) [facility] Absolute lymphocyte countOrd ered By: Dr. Snell on 06-15-2022 Lymphocytes Auto (Unsp spec) [#/Vol] 2.02 10*3/uL 0.83-4.51 [facility] Basophil percentageOrdered B y: Dr. Snell on 06-15-2022 Basophils/100 WBC (Bld) 0.9 % 0-1 [facility] Bilirubin [Mass/Vol] 0.40 mg/dL 0.20-1.00 [facility] Comment on above: For patients on eltr ombopag therapy, use of [place] TBIL is not recommended. Chloride [Moles/Vol] 96 mmol/L 98-107 [facility] Eosinophils/100 WBC (Bld) 2.5 % 0-5 [facility] Glucose [Mass/Vol] 101 mg/dL 74-106 [facility] Comment on above: Fasting Glucose resu lt from 100 to 125 mg/dL suggests IMPAIRED HOMEOSTASIS per A.D.A. criteria. Neutrophils (Bld) [#/Vol] 5.1 10*3/uL 2.0-7.7 [facility] Neutrophils/100 WBC (Bld) 63.9 % 47-70 [facility] Potassium [Moles/Vol] 3.9 mmol/L 3.5-5.1 [facility] Protein [Mass/Vol] 7.9 g/dL 6.4-8.2 [facility] Sodium [Moles/Vol] 133 mmol/L 136-145 [facility] WBC (Bld) [#/Vol] 8.0 10*3/uL 4.4-11.0 [facility] Blood erythrocytes count (nu mber/volume)Ordered By: Dr. Snell on 06-15-2022 RBC (Bld) [#/Vol] 4.41 10*6/uL 4.2-5.4 [facility] Blood hemoglobin measurement (mass/volume)Ordered By: Dr. Snell on 06-15-2022 Hemoglobin (Bld) [Mass/Vol] 14.4 g/dL 12.0-15.0 [facility] Blood lymphocytes/100 leukoc ytesOrdered By: Dr. Snell on 06-15-2022 Lymphocytes/100 WBC (Bld) 25.4 % 19-41 [facility] Blood monocytes/100 leukocyt esOrdered By: Dr. Snell on 06-15-2022 Monocytes/100 WBC (Bld) 7.0 % 0-10 [facility] Blood platelet mean volumeOr dered By: Dr. Snell on 06-15-2022 Platelet mean volume (Bld) [Entitic vol] 10.0 fL 6.2-12.0 [facility] Determination of erythrocyte mean corpuscular volume (MCV)Ordered By: Dr. Snell on 06-15-2022 MCV (RBC) [Entitic vol] 93.0 fL 81-99 [facility] Hematocrit Auto (Bld) [Volum e fraction]Ordered By: Dr. Snell on 06-15-2022 Hematocrit (Bld) [Volume fraction] 41.0 % 37-47 [facility] Laboratory - Chemistry and C hemistry - challengeOrdered By: Dr. Snell on 06-15-2022 ALP [Catalytic activity/Vol] 83 U/L 45-117 [facility] ALT [Catalytic activity/Vol] 19 U/L 13-56 [facility] CO2 [Moles/Vol] 28.0 mmol/L 21.0-32.0 [facility] Globulin (S) [Mass/Vol] 3.6 g/dL 2.2-4.2 [facility] Urea nitrogen/Creatinine [Mass ratio] 11.5 mg/mg 10-20 [facility] Laboratory - Hematology and Cell countsOrdered By: Dr. Snell on 06-15-2022 Erythrocyte distribution width (RBC) [Entitic vol] 43.8 fL 35.1-43.9 [facility] Erythrocyte distribution width (RBC) [Ratio] 12.7 % 11.6-14.6 [facility] Immature granulocytes/100 WBC (Bld) 0.300 % 0.0-0.9 [facility] Comment on above: IG% - Immature Granu locytes (promyelocytes, myelocytes and metamyelocytes) > 1% indicates that a LEFT SHIFT is Present. MCH (RBC) [Entitic mass] 32.7 pg 27.0-32.0 [facility] Nucleated RBC/100 WBC (Bld) [Ratio] 0 % 0-5 [facility] MCHC Auto (RBC) [Mass/Vol]Or dered By: Dr. Snell on 06-15-2022 MCHC (RBC) [Mass/Vol] 35.1 g/dL 32-36 [facility] No Panel InformationOrdered By: Dr. Snell on 06-15-2022 Estimated GFR (MDRD) Amer 57 mL/min >60 [facility] Comment on above: GFR Calc Estimated GFR (MDRD) Non-Af Amer 47 mL/min >60 [facility] Comment on above: Non- GFR Calc Platelets bldOrdered By: Dr. Snell on 06-15-2022 Platelets (Bld) [#/Vol] 381 10*3/uL 150-450 [facility] Serum or plasma albumin chace urement (mass/volume)Ordered By: Dr. Snell on 06-15-2022 Albumin [Mass/Vol] 4.3 g/dL 3.2-5.0 [facility] Serum or plasma albumin/glob ulin mass ratioOrdered By: Dr. Snell on 06-15-2022 Albumin/Globulin [Mass ratio] 1.2 {ratio} 0.9-2.4 [facility] Serum or plasma calcium chace urement (mass/volume)Ordered By: Dr. Snell on 06-15-2022 Calcium [Mass/Vol] 9.5 mg/dL 8.5-10.1 [facility] Serum or plasma creatinine m easurement (mass/volume)Ordered By: Dr. Snell on 06-15-2022 Creatinine [Mass/Vol] 1.22 mg/dL 0.55-1.02 [facility] Comment on above: The validity of the calculated GFR & GFRAA in patients over 70 years has not been determined. Clinical correlation is essential. Serum or plasma urea nitroge n measurement (mass/volume)Ordered By: Dr. Snell on 06-15-2022 Urea nitrogen [Mass/Vol] 14 mg/dL 7-18 [facility] Thin prep Papanicolaou smear with manual screeningOrdered By: Dr. Snell on 06-15-2022 Thin prep Papanicolaou smear with manual screening 14 U/L 15-37 [facility] Thin prep Papanicolaou smear with manual screening 9 5-15 [facility] Absolute lymphocyte countOrd ered By: Dr. Snell on 04-07-2022 Lymphocytes Auto (Unsp spec) [#/Vol] 1.90 10*3/uL 0.83-4.51 [facility] Basophil percentageOrdered B y: Dr. Snell on 04-07-2022 Basophils/100 WBC (Bld) 0.6 % 0-1 [facility] Bilirubin [Mass/Vol] 0.20 mg/dL 0.20-1.00 [facility] Comment on above: For patients on eltr ombopag therapy, use of [place] TBIL is not recommended. Chloride [Moles/Vol] 94 mmol/L 98-107 [facility] Cholesterol [Mass/Vol] 239 mg/dL <200 [facility] Comment on above: <200 mg/dL Desirable 200-240 mg/dL Borderline >240 mg/dL High Risk Eosinophils/100 WBC (Bld) 0.8 % 0-5 [facility] Glucose [Mass/Vol] 128 mg/dL 74-106 [facility] Comment on above: Fasting Glucose resu lt greater than or equal to 126 mg/dL suggests DIABETES MELLITUS per A.D.A. criteria. Neutrophils (Bld) [#/Vol] 8.3 10*3/uL 2.0-7.7 [facility] Neutrophils/100 WBC (Bld) 75.8 % 47-70 [facility] Potassium [Moles/Vol] 3.7 mmol/L 3.5-5.1 [facility] Protein [Mass/Vol] 7.3 g/dL 6.4-8.2 [facility] Sodium [Moles/Vol] 131 mmol/L 136-145 [facility] Triglyceride [Mass/Vol] 201 mg/dL <199 [facility] Comment on above: The drugs N-Acetylcy steine and Metamizole may falsely depress this assay.Serum Triglycerides Reference Interval Normal <150 mg/dL Borderline high 150 - 199 mg/dL High 200 - 499 mg/dL Very High > or = 500 mg/dL WBC (Bld) [#/Vol] 10.9 10*3/uL 4.4-11.0 [facility] Blood erythrocytes count (nu mber/volume)Ordered By: Dr. Snell on 04-07-2022 RBC (Bld) [#/Vol] 4.17 10*6/uL 4.2-5.4 [facility] Blood hemoglobin measurement (mass/volume)Ordered By: Dr. Snell on 04-07-2022 Hemoglobin (Bld) [Mass/Vol] 13.2 g/dL 12.0-15.0 [facility] Blood lymphocytes/100 leukoc ytesOrdered By: Dr. Snell on 04-07-2022 Lymphocytes/100 WBC (Bld) 17.4 % 19-41 [facility] Blood monocytes/100 leukocyt esOrdered By: Dr. Snell on 04-07-2022 Monocytes/100 WBC (Bld) 5.1 % 0-10 [facility] Blood platelet mean volumeOr dered By: Dr. Snell on 04-07-2022 Platelet mean volume (Bld) [Entitic vol] 9.6 fL 6.2-12.0 [facility] Determination of erythrocyte mean corpuscular volume (MCV)Ordered By: Dr. Snell on 04-07-2022 MCV (RBC) [Entitic vol] 95.0 fL 81-99 [facility] Hematocrit Auto (Bld) [Volum e fraction]Ordered By: Dr. Snell on 04-07-2022 Hematocrit (Bld) [Volume fraction] 39.6 % 37-47 [facility] Laboratory - Chemistry and C hemistry - challengeOrdered By: Dr. Snell on 04-07-2022 ALP [Catalytic activity/Vol] 84 U/L 45-117 [facility] ALT [Catalytic activity/Vol] 19 U/L 13-56 [facility] CO2 [Moles/Vol] 28.0 mmol/L 21.0-32.0 [facility] Globulin (S) [Mass/Vol] 3.3 g/dL 2.2-4.2 [facility] Urea nitrogen/Creatinine [Mass ratio] 17.8 mg/mg 10-20 [facility] Laboratory - Hematology and Cell countsOrdered By: Dr. Snell on 04-07-2022 Erythrocyte distribution width (RBC) [Entitic vol] 46.5 fL 35.1-43.9 [facility] Erythrocyte distribution width (RBC) [Ratio] 13.2 % 11.6-14.6 [facility] Immature granulocytes/100 WBC (Bld) 0.300 % 0.0-0.9 [facility] Comment on above: IG% - Immature Granu locytes (promyelocytes, myelocytes and metamyelocytes) > 1% indicates that a LEFT SHIFT is Present. MCH (RBC) [Entitic mass] 31.7 pg 27.0-32.0 [facility] Nucleated RBC/100 WBC (Bld) [Ratio] 0 % 0-5 [facility] MCHC Auto (RBC) [Mass/Vol]Or dered By: Dr. Snell on 04-07-2022 MCHC (RBC) [Mass/Vol] 33.3 g/dL 32-36 [facility] No Panel InformationOrdered By: Dr. Snell on 04-07-2022 Estimated GFR (MDRD) Amer 71 mL/min >60 [facility] Comment on above: GFR Calc Estimated GFR (MDRD) Non-Af Amer 59 mL/min >60 [facility] Comment on above: Non- GFR Calc Thyroid Stimulating Hormone (TSH) 0.60 uIU/mL 0.358-3.74 [facility] Vitamin D 25-Hydroxy 36.8 ng/mL [facility] Comment on above: Vitamin D 25(OH) Sta tus Range Deficiency <20 ng/mL (50nmol/L) Insufficiency 20 - 30 ng/mL (50 - 75 nmol/L) Sufficiency 30 - 100 ng/mL (75 - 250 nmol/L) Toxicity >100 ng/mL (>250 nmol/L) Platelets bldOrdered By: Dr. Senll on 04-07-2022 Platelets (Bld) [#/Vol] 422 10*3/uL 150-450 [facility] Serum or plasma albumin chace urement (mass/volume)Ordered By: Dr. Snell on 04-07-2022 Albumin [Mass/Vol] 4.0 g/dL 3.2-5.0 [facility] Serum or plasma albumin/glob ulin mass ratioOrdered By: Dr. Snell on 04-07-2022 Albumin/Globulin [Mass ratio] 1.2 {ratio} 0.9-2.4 [facility] Serum or plasma calcium chace urement (mass/volume)Ordered By: Dr. Snell on 04-07-2022 Calcium [Mass/Vol] 8.9 mg/dL 8.5-10.1 [facility] Serum or plasma cholesterol in HDL measurement (mass/volume)Ordered By: Dr. Snell on 04-07-2022 Cholesterol in HDL [Mass/Vol] 40 mg/dL >40 [facility] Comment on above: The drugs N-Acetylcy steine and Metamizole may falsely depress this assay. Reference Range HDL <40 mg/dL Low HDL Cholesterol HDL >or= 60 mg/dL High HDL Cholesterol Serum or plasma cholesterol in VLDL measurement (mass/volume)Ordered By: Dr. Snell on 04-07-2022 Cholesterol in VLDL [Mass/Vol] 40 mg/dL 5-40 [facility] Serum or plasma creatinine m easurement (mass/volume)Ordered By: Dr. Snell on 04-07-2022 Creatinine [Mass/Vol] 1.01 mg/dL 0.55-1.02 [facility] Comment on above: The validity of the calculated GFR & GFRAA in patients over 70 years has not been determined. Clinical correlation is essential. Serum or plasma low density lipoprotein (LDL) cholesterol measurement (mass/volume)Ordered By: Dr. Snell on 04-07-2022 Cholesterol in LDL [Mass/Vol] 159 mg/dL 0-130 [facility] Serum or plasma urea nitroge n measurement (mass/volume)Ordered By: Dr. Snell on 04-07-2022 Urea nitrogen [Mass/Vol] 18 mg/dL 7-18 [facility] Thin prep Papanicolaou smear with manual screeningOrdered By: Dr. Snell on 04-07-2022 Thin prep Papanicolaou smear with manual screening 14 U/L 15-37 [facility] Thin prep Papanicolaou smear with manual screening 9 5-15 [facility] CNOVon 03-23-2022 CNOV Office Visit (ANDRES ) -- NAVIN AUGUST ([id number]) 1960 F Date Time Provider Department 03/23/22 2:45 PM NELSY CHAUDHARI During your visit today, we recorded the following information about you: Temperature Pulse Respiration Blood pressure 97.7 degrees 86/minute 18/minute 145/68 Nelsy Chaudhari PA-C 03/23/2022 3:10 PM Signed This note was created using [employer]. Subjective Navin August is a 62 year [...] knee issues until (more content not included)... [facility] CNOVon 02-09-2022 CNOV Office Visit (ANDRES ) -- NAVIN AUGUST ([id number]) 1960 F Date Time Provider Department 02/09/22 2:45 PM NELSY CHAUDHARI During your visit today, we recorded the following information about you: Temperature Pulse Respiration Blood pressure 97.3 degrees 98/minute 18/minute 138/76 Nelsy Chaudhari PA-C 02/09/2022 3:27 PM Signed This note was created using [employer]. Subjective Navin August is a 61 year [...] issues unt (more content not included)... Normal [facility] CNOVon 12-29-2021 CN Office Visit (ANDRES ) -- NAVIN AUGUST ([id number]) 1960 F Date Time Provider Department 12/29/21 2:45 PM NEFTALY COKER During your visit today, we recorded the following information about you: Temperature Pulse Respiration Blood pressure 97.5 degrees 103/minute 20/minute 143/93 Weight Height 20.9 kg 1.499 m Neftaly Coker MD 12/30/2021 3:33 PM Signed This note was created using [employer]. Subjective Navin August is a 61 year [...] physically active, str (more content not included)... [facility] Chiquita 12-29-2021 DONATON Telephone (PAMMJK) -- NAVIN AUGUST ([id number]) 1960 F Date Time Provider Department 12/29/21 NEFTALY COKER During your visit today, we recorded the following information about you: Liliana Graham RN 12/30/2021 11:34 AM Signed OARRS checked prior to setting up fentanyl refill from office visit 12/29/21. Noted 2 fentanyl 50 mcg patches were filled from [facility] in [place] on 12/26/21. I spoke with Navin and [...] * HEADACHE [R51] MYALGIA AND MYOSITIS NOS [[id number]] Abnormal Weight Gain [R63.5] 05/19/2007 01/15/2010 PERS [...] Other lo (more content not included)... Normal [facility] .Auto Diffon 12-26-2021 Basophil, Absolute 0.1 10 3/mcL Normal 0.0-0.2 [facility] ([place]) Comment on above: Performed By: #### T OXSC UA #### [address] [address] Basophils/100 WBC (Bld) 1.1 % Normal 0.0-2.5 [facility] ([place] Comment on above: Performed By: #### T OXSC UA #### [address] [address] Eosinophil, Absolute 0.2 10 3/mcL Normal 0.0-0.4 [facility] ([place]) Comment on above: Performed By: #### T OXSC UA #### [address] [address] Eosinophils/100 WBC (Bld) 3.2 % Normal 0.0-7.0 [facility] ([place] Comment on above: Performed By: #### T OXSC, UA #### [address] [address] Lymphocyte, Absolute 2.4 10 3/mcL Normal 0.8-3.9 [facility] ([place] Comment on above: Performed By: #### T OXSC, UA #### [address] [address] Lymphocytes/100 WBC (Bld) 37.9 % Normal 10.0-50.0 [facility] ([place]) Comment on above: Performed By: #### T OXSC, UA #### [address]ela [address] [address] Monocyte, Absolute 0.6 10 3/mcL Normal 0.2-1.0 [facility] ([place] Comment on above: Performed By: #### T OXSC, UA #### [address] [address] Monocytes/100 WBC (Bld) 9.4 % Normal 1.7-13.0 [facility] ([place] Comment on above: Performed By: #### T OXSC, UA #### [address] [address] Neutrophils/100 WBC (Bld) 48.4 % Normal 37.0-80.0 [facility] ([place]) Comment on above: Performed By: #### T OXSC, UA #### [address] [address] .GFRon 12-26-2021 GFR 79 ml/min/1.73sqm Normal [facility] ([place] Comment on above: Result Comment: GFR Population [...] Performed By: #### G FR, CMP #### [address] [address] GFR Non- 65 ml/min/1.73sqm Normal [facility] ([place] Comment on above: Result Comment: GFR Population [...] Performed By: #### G , CMP #### [address] [address] .MDWon 12-26-2021 Monocyte Distribution Width Not performed Normal 0.00-20.00 [facility] ([place] Comment on above: Result Comment: MDW testing performed only on adult ER patients between the ages of 18-89 years. Performed By: #### T OXSC, UA #### [address] [address] .NEUABSon 12-26-2021 Neutrophil, Absolute 3.1 10 3/mcL Normal 2.9-6.2 [facility] ([place] Comment on above: Performed By: #### T OXSC, UA #### [address] [address] A1Con 12-26-2021 HbA1c (Bld) [Mass fraction] 5.8 % Normal 4.3-6.4 [facility] ([place] Comment on above: Performed By: #### G FR, CMP #### [address] [address] BMPon 12-26-2021 BUN/Creatinine Ratio 6 ratio Low 7-27 [facility] ([place] Comment on above: Performed By: #### T OXSC, UA #### [address] [address] Calcium [Mass/Vol] 8.7 mg/dL Normal 8.4-10.2 [facility] ([place] Comment on above: Performed By: #### T OXSC, UA #### [address] [address] Chloride [Moles/Vol] 102 mmol/L Normal 98-107 [facility] ([place] Comment on above: Performed By: #### T OXSC, UA #### [address] [address] CO2 [Moles/Vol] 30 mmol/L Normal 23-31 [facility] ([place] Comment on above: Performed By: #### T OXSC, UA #### [address] [address] Creatinine [Mass/Vol] 0.88 mg/dL Normal 0.55-1.02 [facility] ([place] Comment on above: Performed By: #### T OXSC, UA #### [address] [address] Electrolyte Balance 7.0 mEq/L Normal 4.0-15.0 [facility] ([place] Comment on above: Performed By: #### T OXSC, UA #### [address] [address] Glucose [Mass/Vol] 90 mg/dL Normal 80-115 [facility] ([place] Comment on above: Performed By: #### T OXSC, UA #### [address] [address] Potassium [Moles/Vol] 4.3 mmol/L Normal 3.5-5.1 [facility] ([place] Comment on above: Performed By: #### T OXSC, UA #### [address] [address] Sodium [Moles/Vol] 139 mmol/L Normal 136-145 [facility] ([place]) Comment on above: Performed By: #### PRATEEK CORRAL #### [address] [address] Urea nitrogen [Mass/Vol] 5 mg/dL Low 7-18 [facility] ([place]) Comment on above: Performed By: #### Hua WHITTEN UA #### [address] [address] CBCon 12-26-2021 Erythrocyte distribution width (RBC) [Ratio] 12.7 % Normal 11.5-14.5 [facility] ([place] Comment on above: Performed By: #### PRATEEK CORRAL #### [address] [address] Hematocrit (Bld) [Volume fraction] 38.2 % Normal 37.0-47.0 [facility] ([place] Comment on above: Performed By: #### PRATEEK CORRAL #### [address] [address] Hgb 13.3 G/dL Normal 12.0-16.0 [facility] ([place] Comment on above: Performed By: #### PRATEEK CORRAL #### [address] [address] MCH (RBC) [Entitic mass] 33.2 pg High 27.0-31.2 [facility] ([place] Comment on above: Performed By: #### Hua WHITTEN UA #### [address] [address] MCHC 34.7 G/dL Normal 33.0-37.0 [facility] ([place]) Comment on above: Performed By: #### Hua WHITTEN UA #### [address] [address] MCV (RBC) [Entitic vol] 95.6 fL High 80.0-94.0 [facility] ([place]) Comment on above: Performed By: #### Hua WHITTEN UA #### [address] [place] [address] [place], [place] [address] Platelet 418 10 3/mcL High 130-400 [facility] ([place] Comment on above: Performed By: #### T OXJEANNA, UA #### [address] [place] [address] [place], [place] [address] Platelet mean volume (Bld) [Entitic vol] 6.8 fL Low 7.4-10.4 [facility] ([place] Comment on above: Performed By: #### T OXSC, UA #### [address] [place] [address] [place], [place] [address] RBC 4.00 10 6/mcL Low 4.20-5.40 [facility] ([place] Comment on above: Performed By: #### T OXJEANNA, UA #### [address] [place], [place] [address] WBC 6.3 10 3/mcL Normal 4.6-10.8 [facility] ([place] Comment on above: Performed By: #### T OXJEANNA, UA #### [address] [address] LABORATORYOrdered By: Radha Padgett on 12-26-2021 Basophil, [...] 12-26-2021 Magnesium [Mass/Vol] 2.0 mg/dL Normal 1.8-2.4 [facility] ([place] Comment on above: Performed By: #### T OXSC, UA #### [address] [address] OSMOUon 12-26-2021 U Osmolality 104 mOsm/kg Low 390-1090 [facility] ([place] Comment on above: Performed By: #### G FR, CMP #### [address] [address] TSHon 12-26-2021 TSH Qn 1.35 m[IU]/L Normal 0.36-3.74 [facility] ([place] Comment on above: Performed By: #### G FR, CMP #### [address] [address] .Auto Diffon 12-25-2021 Basophil, Absolute 0.1 10 3/mcL Normal 0.0-0.2 [facility] ([place]) Comment on above: Performed By: #### T OXSC UA #### [address] [address] Basophils/100 WBC (Bld) 1.2 % Normal 0.0-2.5 [facility] ([place]) Comment on above: Performed By: #### T OXSC, UA #### [address] [address] Eosinophil, Absolute 0.1 10 3/mcL Normal 0.0-0.4 [facility] ([place]) Comment on above: Performed By: #### T OXSC UA #### [address] [address] Eosinophils/100 WBC (Bld) 0.7 % Normal 0.0-7.0 [facility] ([place]) Comment on above: Performed By: #### T OXSC UA #### [address] [address] Lymphocyte, Absolute 1.5 10 3/mcL Normal 0.8-3.9 [facility] ([place]) Comment on above: Performed By: #### T OXSC UA #### [address] [address] Lymphocytes/100 WBC (Bld) 17.7 % Normal 10.0-50.0 [facility] ([place]) Comment on above: Performed By: #### T OXSC, UA #### [address] [address] Monocyte, Absolute 0.5 10 3/mcL Normal 0.2-1.0 [facility] ([place]) Comment on above: Performed By: #### T OXSC UA #### [address] [address] Monocytes/100 WBC (Bld) 5.9 % Normal 1.7-13.0 [facility] ([place]) Comment on above: Performed By: #### T OXSC, UA #### [address] [address] Neutrophils/100 WBC (Bld) 74.5 % Normal 37.0-80.0 [facility] ([place] Comment on above: Performed By: #### T OXSC, UA #### [address] [address] .GFRon 12-25-2021 GFR 78 ml/min/1.73sqm Normal [facility] ([place] Comment on above: Result Comment: GFR Population [...] Performed By: #### G FR, CMP #### [address] [address] GFR Non- 64 ml/min/1.73sqm Normal [facility] ([place] Comment on above: Result Comment: GFR Population [...] Performed By: #### G FR, CMP #### [address] [address] GFR Non- 58 ml/min/1.73sqm Normal [facility] ([place] Comment on above: Result Comment: GFR Population [...] Performed By: #### B MP, GFR #### [address] [address] GFR 70 ml/min/1.73sqm Normal [facility] ([place] Comment on above: Result Comment: GFR Population [...] Performed By: #### B MP, GFR #### [address] [address] .MDWon 12-25-2021 Monocyte Distribution Width 15.85 Normal 0.00-20.00 [facility] ([place] Comment on above: Result Comment: For ED adult patients suspected of sepsis, MDW<=20.0 does not rule out sepsis or risk of sepsis Performed By: #### T OXSC, UA #### [address] [address] .NEUABSon 12-25-2021 Neutrophil, Absolute 6.4 10 3/mcL High 2.9-6.2 [facility] ([place] Comment on above: Performed By: #### T OXSC, UA #### [address] [address] BMPon 12-25-2021 BUN/Creatinine Ratio 4 ratio Low 7-27 [facility] ([place] Comment on above: Performed By: #### G , CMP #### [address] [address] Calcium [Mass/Vol] 8.7 mg/dL Normal 8.4-10.2 [facility] ([place] Comment on above: Performed By: #### Bryce HAINES, CMP #### [address] [address] Chloride [Moles/Vol] 97 mmol/L Low 98-107 [facility] ([place] Comment on above: Performed By: #### Bryce HAINES, CMP #### [address] [address] CO2 [Moles/Vol] 27 mmol/L Normal 23-31 [facility] ([place] Comment on above: Performed By: #### Bryce HAINES, CMP #### [address] [address] Creatinine [Mass/Vol] 0.89 mg/dL Normal 0.55-1.02 [facility] ([place] Comment on above: Performed By: #### Bryce HAINES, CMP #### [address] [address] Electrolyte Balance 8.0 mEq/L Normal 4.0-15.0 [facility] ([place] Comment on above: Performed By: #### G FR, CMP #### [address] [address] Glucose [Mass/Vol] 96 mg/dL Normal 80-115 [facility] ([place] Comment on above: Performed By: #### G , CMP #### [address] [address] Potassium [Moles/Vol] 4.0 mmol/L Normal 3.5-5.1 [facility] ([place] Comment on above: Performed By: #### G FR, CMP #### [address] [address] Sodium [Moles/Vol] 132 mmol/L Low 136-145 [facility] ([place] Comment on above: Performed By: #### G FR, CMP #### [address] [address] Urea nitrogen [Mass/Vol] 4 mg/dL Low 7-18 [facility] ([place] Comment on above: Performed By: #### G FR, CMP #### [address] [address] BUN/Creatinine Ratio 4 ratio Low 7-27 [facility] ([place] Comment on above: Performed By: #### B MP, GFR #### [address] [address] Calcium [Mass/Vol] 9.6 mg/dL Normal 8.4-10.2 [facility] ([place] Comment on above: Performed By: #### B MP, GFR #### [address] [address] Chloride [Moles/Vol] 91 mmol/L Low 98-107 [facility] ([place] Comment on above: Performed By: #### B MP, GFR #### [address] [address] CO2 [Moles/Vol] 28 mmol/L Normal 23-31 [facility] ([place] Comment on above: Performed By: #### B MP, GFR #### [address] [address] Creatinine [Mass/Vol] 0.98 mg/dL Normal 0.55-1.02 [facility] ([place] Comment on above: Performed By: #### B MP, GFR #### [address] [address] Electrolyte Balance 9.0 mEq/L Normal 4.0-15.0 [facility] ([place] Comment on above: Performed By: #### B MP, GFR #### [address] [address] Glucose [Mass/Vol] 116 mg/dL High 80-115 [facility] ([place] Comment on above: Performed By: #### B MP, GFR #### [address] [address] Potassium [Moles/Vol] 3.7 mmol/L Normal 3.5-5.1 [facility] ([place] Comment on above: Performed By: #### B MP, GFR #### [address] [address] Sodium [Moles/Vol] 128 mmol/L Low 136-145 [facility] ([place] Comment on above: Performed By: #### B MP, GFR #### [address] [address] Urea nitrogen [Mass/Vol] 4 mg/dL Low 7-18 [facility] ([place] Comment on above: Performed By: #### B MP, GFR #### [address] [address] CBCon 12-25-2021 Erythrocyte distribution width (RBC) [Ratio] 12.7 % Normal 11.5-14.5 [facility] ([place] Comment on above: Performed By: #### T OXSC, UA #### [address] [address] Hematocrit (Bld) [Volume fraction] 42.5 % Normal 37.0-47.0 [facility] ([place] Comment on above: Performed By: #### T OXSC, UA #### [address] [address] Hgb 15.1 G/dL Normal 12.0-16.0 [facility] ([place] Comment on above: Performed By: #### T OXSC, UA #### [address] [address] MCH (RBC) [Entitic mass] 33.5 pg High 27.0-31.2 [facility] ([place] Comment on above: Performed By: #### PRATEEK CORRAL #### [address] [place], [place] [address] MCHC 35.5 G/dL Normal 33.0-37.0 [facility] ([place] Comment on above: Performed By: #### PRATEEK CORRAL #### [address] [place] [address] [place], [place] [address] MCV (RBC) [Entitic vol] 94.2 fL High 80.0-94.0 [facility] ([place] Comment on above: Performed By: #### PRATEEK CORRAL #### [address] [place], [place] [address] Platelet 530 10 3/mcL High 130-400 [facility] ([place] Comment on above: Performed By: #### PRATEEK CORRAL #### [address] [address] Platelet mean volume (Bld) [Entitic vol] 6.5 fL Low 7.4-10.4 [facility] ([place] Comment on above: Performed By: #### PRATEEK CORRAL #### [address] [address] RBC 4.52 10 6/mcL Normal 4.20-5.40 [facility] ([place] Comment on above: Performed By: #### PRATEEK CORRAL #### [address] [address] WBC 8.6 10 3/mcL Normal 4.6-10.8 [facility] ([place] Comment on above: Performed By: #### PRATEEK CORRAL #### [address] [address] [address] HEAD OR BRAIN W/O CONTRAS Ton [...] 12/25/2021 12:16:50 PM Ordering Provider: KRYSTAL VALLADARES [facility] ([place] LABORATORYOrdered By: Bridgette Hodgson on 12-25-2021 Osmolality [...] 12-25-2021 Sodium [Moles/Vol] 22 mmol/L Normal 20-110 [facility] [place] Comment on above: Performed By: #### Bryce HAINES, CMP #### [address] [address] OSMOSon 12-25-2021 Osmolality [Osmolality] 263 mosm/kg Low 275-300 [facility] ([place] Comment on above: Performed By: ###Rose HAINES, CMP #### [address] [address] TOXSCon 12-25-2021 U Ampheta (AO) Negative [facility] ([place] Comment on above: Performed By: #### Hua OXSC UA #### [address] [address] U Soraya (AO) Negative [facility] ([place] Comment on above: Performed By: #### Hua OXSC, UA #### [address] [address] U Hu (AO) Negative [facility] ([place] Comment on above: Performed By: #### Hua OXSC, UA #### [address] [address] U Cannab (AO) Negative [facility] ([place]) Comment on above: Performed By: #### T OXSC, UA #### [address] [address] U Cocaine (AO) Negative Normal [facility] ([place]) Comment on above: Performed By: #### T OXSC, UA #### [address] [address] U Methadone (AO) Negative Normal [facility] ([place] Comment on above: Performed By: #### T OXSC, UA #### [address] [address] U PCP (AO) Negative [facility] ([place]) Comment on above: Performed By: #### T OXSC, UA #### [address] [address] U TCA (AO) Positive [facility] ([place]) Comment on above: Performed By: #### T OXSC, UA #### [address] [address] Urine Opiates (AO) Negative [facility] ([place]) Comment on above: Performed By: #### T OXSC, UA #### [address] [address] UAon 12-25-2021 Color (U) Yellow Normal [facility] ([place]) Comment on above: Performed By: #### T OXSC, UA #### [address] [address] Glucose (U) [Mass/Vol] Negative Normal Negative [facility] ([place]) Comment on above: Performed By: #### T OXSC, UA #### [address] [address] Ketones Ql (U) Negative Normal Negative [facility] ([place]) Comment on above: Performed By: #### T OXSC, UA #### [address] [address] UA Appear Clear Normal Clear [facility] ([place] Comment on above: Performed By: #### T OXSC, UA #### [address] [address] UA Blood Trace Abnormal Negative [facility] [place] Comment on above: Performed By: #### T OXSC, UA #### [address] [address] UA Leuk Est Negative Normal Negative [facility] ([place] Comment on above: Performed By: #### T OXSC, UA #### [address] [address] UA Nitrite Negative Normal Negative [facility] ([place] Comment on above: Performed By: #### T OXSC, UA #### [place] [address] UA pH 6.0 Normal 5.0 - 8.0 [facility] ([place] Comment on above: Performed By: #### T OXSC, UA #### [place] [place] [address] UA Protein Negative Normal Negative [facility] ([place] Comment on above: Performed By: #### T OXSC, UA #### [address] [address] UA Spec Grav 1.010 Abnormal 1.015-1.02 5 [facility] ([place] Comment on above: Performed By: #### T OXSC, UA #### [address] [address] UA Specimen Type Clean Catch Normal [facility] ([place] Comment on above: Performed By: #### T OXSC, UA #### [address] [address] UA Urobilinogen 0.2 E.U./dL Normal 0.2-1.0 [facility] [place] Comment on above: Performed By: #### T OXSC, UA #### Gabriela Arch[address] [address] Urobilinogen (U) [Mass/Vol] Negative Normal Negative [facility] [place] Comment on above: Performed By: #### T OXSC, UA #### [address] [address] XR CHEST 1 VIEWon 12-25-2021 XR CHEST [...] 12/25/2021 12:13:51 PM Ordering Provider: KRYSTAL Perez [facility] [place] XR FOREARM 2 VIEWS RIGHTon 0 12-11-2021 [...] 12/11/2021 8:34:16 PM Ordering Provider: BALDOMERO HEAD [facility] ([place]) .Auto Diffon 10-20-2021 Basophil, Absolute 0.1 10 3/mcL Normal 0.0-0.2 [facility] ([place]) Comment on above: Performed By: #### G FR, CMP #### [address] [address] Basophils/100 WBC (Bld) 0.8 % Normal 0.0-2.5 [facility] ([place] Comment on above: Performed By: #### G FR, CMP #### [address] [address] Eosinophil, Absolute 0.1 10 3/mcL Normal 0.0-0.4 [facility] ([place] Comment on above: Performed By: #### G FR, CMP #### [address] [address] Eosinophils/100 WBC (Bld) 1.5 % Normal 0.0-7.0 [facility] [place] Comment on above: Performed By: #### G FR, CMP #### [address] [address] Lymphocyte, Absolute 1.4 10 3/mcL Normal 0.8-3.9 [facility] ([place] Comment on above: Performed By: #### G FR, CMP #### [address] [address] Lymphocytes/100 WBC (Bld) 18.5 % Normal 10.0-50.0 [facility] [place] Comment on above: Performed By: #### G FR, CMP #### [address] [address] Monocyte, Absolute 0.5 10 3/mcL Normal 0.2-1.0 [facility] ([place] Comment on above: Performed By: #### G FR, CMP #### [address] [address] Monocytes/100 WBC (Bld) 6.6 % Normal 1.7-13.0 [facility] [place] Comment on above: Performed By: #### G FR, CMP #### [address] [address] Neutrophils/100 WBC (Bld) 72.6 % Normal 37.0-80.0 [facility] [place] Comment on above: Performed By: #### G FR, CMP #### [address] [address] .GFRon 10-20-2021 GFR 64 ml/min/1.73sqm Normal [facility] [place] Comment on above: Result Comment: GFR Population [...] By: #### Bryce HAINES, CMP #### Gabriela [address] [address] GFR Non- 53 ml/min/1.73sqm Normal [facility] [place] Comment on above: Result Comment: GFR Population [...] By: #### G , CMP #### Gabriela [id number] [place], [place] [address] .MDWon 10-20-2021 Monocyte Distribution Width 15.89 Normal 0.00-20.00 [facility] ([place] Comment on above: Result Comment: For ED adult patients suspected of sepsis, MDW<=20.0 does not rule out sepsis or risk of sepsis Performed By: #### G , CMP #### [address] [address] .NEUABSon 10-20-2021 Neutrophil, Absolute 5.6 10 3/mcL Normal 2.9-6.2 [facility] [place] Comment on above: Performed By: #### G FR, CMP #### [address] [address] CBCon 10-20-2021 Erythrocyte distribution width (RBC) [Ratio] 13.1 % Normal 11.5-14.5 [facility] [place] Comment on above: Performed By: #### G FR, CMP #### [address] [address] Hematocrit (Bld) [Volume fraction] 41.7 % Normal 37.0-47.0 [facility] [place] Comment on above: Performed By: #### Bryce FR, CMP #### [address] [address] Hgb 14.4 G/dL Normal 12.0-16.0 [facility] [place] Comment on above: Performed By: #### G FR, CMP #### [address] [address] MCH (RBC) [Entitic mass] 33.0 pg High 27.0-31.2 [facility] [place] Comment on above: Performed By: #### G FR, CMP #### [address] [address] MCHC 34.5 G/dL Normal 33.0-37.0 [facility] ([place] Comment on above: Performed By: #### G FR, CMP #### [address] [address] MCV (RBC) [Entitic vol] 95.5 fL High 80.0-94.0 [facility] [place] Comment on above: Performed By: #### G FR, CMP #### [address] [address] Platelet 381 10 3/mcL Normal 130-400 [facility] [place] Comment on above: Performed By: #### G FR, CMP #### [address] [address] Platelet mean volume (Bld) [Entitic vol] 7.4 fL Normal 7.4-10.4 [facility] ([place] Comment on above: Performed By: #### G FR, CMP #### [address] [address] RBC 4.36 10 6/mcL Normal 4.20-5.40 [facility] [place] Comment on above: Performed By: #### G FR, CMP #### [address] [address] WBC 7.7 10 3/mcL Normal 4.6-10.8 [facility] [place] Comment on above: Performed By: #### G FR, CMP #### [address] [address] CMPon 10-20-2021 Albumin Level 4.3 G/dL Normal 3.4-4.8 [facility] ([place] Comment on above: Performed By: #### G FR, CMP #### [address] [address] Albumin/Globulin [Mass ratio] 1.3 {ratio} Normal 1.1-2.5 [facility] [place] Comment on above: Performed By: #### G FR, CMP #### [address] [address] ALP [Catalytic activity/Vol] 93 U/L Normal 40-135 [facility] ([place] Comment on above: Performed By: #### G FR, CMP #### [address] [address] ALT [Catalytic activity/Vol] 36 U/L Normal 14-59 [facility] ([place] Comment on above: Performed By: #### G FR, CMP #### [address] [address] AST [Catalytic activity/Vol] 31 U/L Normal 10-40 [facility] ([place] Comment on above: Performed By: #### G FR, CMP #### [address] [address] Bili Total 0.2 mg/dL Normal 0.2-1.0 [facility] ([place] Comment on above: Result Comment: Use of this assay is not recommended for patients undergoing treatment with eltrombopag due to the potential for falsely elevated results. Performed By: #### G , CMP #### [address] [address] BUN/Creatinine Ratio 19 ratio Normal 7-27 [facility] ([place] Comment on above: Performed By: #### G , CMP #### [address] [address] Calcium [Mass/Vol] 10.0 mg/dL Normal 8.4-10.2 [facility] ([place] Comment on above: Performed By: #### G , CMP #### [address] [address] Chloride [Moles/Vol] 98 mmol/L Normal 98-107 [facility] ([place] Comment on above: Performed By: #### G , CMP #### [address] [address] CO2 [Moles/Vol] 32 mmol/L High 23-31 [facility] ([place] Comment on above: Performed By: #### G , CMP #### [address] [address] Creatinine [Mass/Vol] 1.06 mg/dL High 0.55-1.02 [facility] ([place] Comment on above: Performed By: #### G FR, CMP #### [address] [address] Electrolyte Balance 9.0 mEq/L Normal 4.0-15.0 [facility] ([place] Comment on above: Performed By: #### G FR, CMP #### [address] [address] Globulin 3.2 G/dL Normal [facility] ([place] Comment on above: Performed By: #### G FR, CMP #### [address] [address] Glucose [Mass/Vol] 104 mg/dL Normal 80-115 [facility] ([place] Comment on above: Performed By: #### G FR, CMP #### [id number] [place], [place] [address] Potassium [Moles/Vol] 4.4 mmol/L Normal 3.5-5.1 [facility] ([place] Comment on above: Performed By: #### G FR, CMP #### [address] [address] Sodium [Moles/Vol] 139 mmol/L Normal 136-145 [facility] ([place] Comment on above: Performed By: #### G FR, CMP #### [address] [address] Total Protein 7.5 G/dL Normal 6.4-8.2 [facility] ([place] Comment on above: Performed By: #### G FR, CMP #### [address] [address] Urea nitrogen [Mass/Vol] 20 mg/dL High 7-18 [facility] ([place] Comment on above: Performed By: #### G FR, CMP #### [address] [address] [address] ABDOMEN/PELVIS W/O CONTRA STon 10-20-2021 CT [...] follow-up with pelvic US. Reference: Radiology 2010 Jan;256(3):943-62 Interpreted by: Cr Bowden MD Preliminary Report By: Cr Bowden MD Electronically signed By Cr Bowden MD Dictated Date: 10/20/2021 3:43:54 PM Prelim Date: 10/20/2021 3:49:59 PM Sign Date: 10/20/2021 3:49:59 PM Ordering Provider: KRYSTAL VALLADARES [facility] ([place]) LABORATORYOrdered By: Princess Shah on 10-20-2021 Albumin [...] 10/20/2021 5:13:20 PM Ordering Provider: KRYSTAL Perez [facility] ([place] TOXASSURE COMPRon 11-25-2018 TOXASSURE COMPR FINAL Normal () [facility] Comment on above: Result Comment: ====== [...] consultation, please call . ====== Performed At: [employer] [address] [place] [id number] Juancho Kern PhrLA [phone] Performed By: #### L [phone] #### [facility] [address] [address] # [phone] Office Visit: abnormal CT a/ p for c-scopeon 01-11-2017 Dietary management education, guidance, and counseling (procedure) yes Invalid Interpretation Code [facility] [employer] Work Phone: Documentation of current medications (procedure) Done Invalid Interpretation Code [facility] [employer] Work Phone: Fall risk assessment No Invalid Interpretation Code [facility] [employer] Work Phone: Smoking cessation education (procedure) yes Invalid Interpretation Code [facility] [employer] Work Phone: Tobacco use [facility] Current every day smoker Invali d Interpretation Code [facility] [employer] Work Phone: Vital Signs Date Time Vital Sign Value Performing Clinician Facility 10-28-2024 21:38-0400 Body temperature 98.1 [degF] Dr. Yobany Snell MD Work Phone: [facility] 10-28-2024 21:38-0400 Diastolic blood pressure 72 mm[Hg] Dr. Yobany Snell MD Work Phone: [facility] 10-28-2024 21:38-0400 Heart rate 79 /min Dr. Yobany Snell MD Work Phone: [facility] 10-28-2024 21:38-0400 Respiratory rate 16 /min Dr. Yobany Snell MD Work Phone: [facility] 10-28-2024 21:38-0400 SaO2% (BldA) [Mass fraction] 92 % Dr. Yobany Snell MD Work Phone: [facility] 10-28-2024 21:38-0400 Systolic blood pressure 118 mm[Hg] Dr. Yobany Snell MD Work Phone: [facility] 10-28-2024 18:46-0400 Body height 152.[address] Yobany Snell MD Work Phone: [facility] 10-28-2024 18:46-0400 Body mass index (BMI) [Ratio] 30.8 kg/m2 Dr. Yobany Snell MD Work Phone: [facility] 10-28-2024 18:46-0400 Body weight 71.[address] Yobany Snell MD Work Phone: [facility] 06-24-2023 14:45-0500 Diastolic blood pressure 72 mm[Hg] [facility] 06-24-2023 14:45-0500 Heart rate 72 /min [facility] 06-24-2023 14:45-0500 Respiratory rate 18 /min [facility] 06-24-2023 14:45-0500 SaO2% (BldA) [Mass fraction] 92 % [facility] 06-24-2023 14:45-0500 Systolic blood pressure 119 mm[Hg] [facility] 06-24-2023 13:35-0500 Body height 152.4 cm [facility] 06-24-2023 13:35-0500 Body mass index (BMI) [Ratio] 27.3 kg/m2 [facility] 06-24-2023 13:35-0500 Body temperature 97.1 [degF] [facility] 06-24-2023 13:35-0500 Body weight 63.5 kg [facility] 04-25-2023 17:41-0500 Heart rate 72 /min [facility] 04-25-2023 17:41-0500 Respiratory rate 18 /min [facility] 04-25-2023 15:42-0500 Body mass index (BMI) [Ratio] 26.4 kg/m2 [facility] 04-25-2023 15:42-0500 Body weight 59.3 kg [facility] 04-25-2023 15:36-0500 Body height 149.86 cm [facility] 04-25-2023 15:36-0500 Body temperature 97.2 [degF] [facility] 04-25-2023 15:36-0500 Diastolic blood pressure 111 mm[Hg] [facility] 04-25-2023 15:36-0500 SaO2% (BldA) [Mass fraction] 100 % [facility] 04-25-2023 15:36-0500 Systolic blood pressure 164 mm[Hg] [facility] 03-23-2022 15:00-0500 Diastolic blood pressure 68 mm[Hg] Nelsy Chaudhari PA-C Work Phone: [facility] 03-23-2022 15:00-0500 Systolic blood pressure 145 mm[Hg] Nelsy Chaudhari PA-C Work Phone: [facility] 03-23-2022 14:59-0500 Body temperature 97.7 [degF] Nelsy Chaudhari PA-C Work Phone: [facility] 03-23-2022 14:59-0500 Heart rate 86 /min Nelsy Chaudhari PA-C Work Phone: [facility] 03-23-2022 14:59-0500 Respiratory rate 18 /min Nelsy Chaudhari PA-C Work Phone: [facility] 03-23-2022 14:59-0500 SaO2% (BldA) [Mass fraction] 93 % Nelsy ADAMS-C Work Phone: [facility] 12-26-2021 11:32-0400 Body temperature 98.78 [degF] CARMEN BOYD RESAWYER[employer]REPRODUCTION PRODUCTION MANAGER [facility] 12-26-2021 11:32-0400 Diastolic blood pressure 77 mm[Hg] CARMEN BOYD RESAWYER-REPRODUCTION PRODUCTION MANAGER [facility] 12-26-2021 11:32-0400 Heart rate 66 /min CARMEN BOYD RESAWYER[employer]RE[employer]ODUCTION PRODUCTION MANAGER [facility] 12-26-2021 11:32-0400 Reason For Taking VItal Signs CARMEN BOYD RESAWYER[employer]REPRODUCTION PRODUCTION MANAGER [facility] 12-26-2021 11:32-0400 Systolic blood pressure 119 mm[Hg] CARMEN BOYD RESAWYER-REPRODUCTION PRODUCTION MANAGER [facility] 12-26-2021 07:36-0400 Reason For Taking VItal Signs CARMEN BOYD RESAWYER-REPRODUCTION PRODUCTION MANAGER [facility] 12-26-2021 07:20-0400 Body temperature 97.7 [degF] CARMEN KINGER RESAWYER-REPRODUCTION PRODUCTION MANAGER [facility] 12-26-2021 07:20-0400 Diastolic blood pressure 81 mm[Hg] CARMEN BOYD RESAWYER-REPRODUCTION PRODUCTION MANAGER [facility] 12-26-2021 07:20-0400 Heart rate 60 /min CARMEN BOYD RESAWYER-REPRODUCTION PRODUCTION MANAGER [facility] 12-26-2021 07:20-0400 Reason For Taking VItal Signs CARMEN BOYD RESAWYER-REPRODUCTION PRODUCTION MANAGER [facility] 12-26-2021 07:20-0400 Respiratory rate 16 /min CARMEN KINGER RESAWYER-REPRODUCTION PRODUCTION MANAGER [facility] 12-26-2021 07:20-0400 Systolic blood pressure 120 mm[Hg] CARMEN KINGER RESAWYER-REPRODUCTION PRODUCTION MANAGER [facility] 12-26-2021 06:16-0400 Heart rate 63 /min CARMEN KINGER RESAWYER[employer]REPRODUCTION PRODUCTION MANAGER [facility] 12-26-2021 04:10-0400 Body temperature 97.52 [degF] CARMEN KINGER RESAWYER-REPRODUCTION PRODUCTION MANAGER [facility] 12-26-2021 04:10-0400 Diastolic blood pressure 77 mm[Hg] CARMEN FERNANDOER RESAWYER-REPRODUCTION PRODUCTION MANAGER [facility] 12-26-2021 04:10-0400 Mean blood pressure 101 mm[Hg] CARMEN FERNANDOER RESAWYER-REPRODUCTION PRODUCTION MANAGER [facility] 12-26-2021 04:10-0400 Respiratory rate 16 /min CARMEN FERNANDOER RESAWYER-REPRODUCTION PRODUCTION MANAGER [facility] 12-26-2021 04:10-0400 Systolic blood pressure 150 mm[Hg] CARMEN KAPPER RESAWYER-REPRODUCTION PRODUCTION MANAGER [facility] 12-26-2021 00:30-0400 Mean blood pressure 93 mm[Hg] CARMEN KAPPER RESAWYER-REPRODUCTION PRODUCTION MANAGER [facility] 12-26-2021 00:30-0400 Respiratory rate 18 /min CARMEN KAPPER RESAWYER-REPRODUCTION PRODUCTION MANAGER [facility] 12-25-2021 19:04-0400 Mean blood pressure 116 mm[Hg] CARMEN KAPPER RESAWYER-REPRODUCTION PRODUCTION MANAGER [facility] 12-25-2021 16:53-0400 Heart rate 66 /min CARMEN KAPPER RESAWYER-REPRODUCTION PRODUCTION MANAGER [facility] 12-25-2021 14:22-0400 Heart rate 66 /min CARMEN KAPPER RESAWYER-REPRODUCTION PRODUCTION MANAGER [facility] 12-25-2021 14:18-0400 Body height 150 cm CARMEN KAPPER RESAWYER-REPRODUCTION PRODUCTION MANAGER [facility] 12-25-2021 14:18-0400 Body weight 65.4 kg CARMEN KAPPER RESAWYER-REPRODUCTION PRODUCTION MANAGER [facility] 12-25-2021 14:18-0400 Body weight 29.07 kg/m2 CARMEN KAPPER RESAWYER-REPRODUCTION PRODUCTION MANAGER [facility] 12-25-2021 13:19-0400 Heart rate 69 /min CARMEN KAPPER RESAWYER-REPRODUCTION PRODUCTION MANAGER [facility] 12-11-2021 19:48-0400 Body height 149.9 cm BALDOMERO DURESKA DO [facility] 12-11-2021 19:48-0400 Body temperature 98.06 [degF] BALDOMERO DURESKA DO [facility] 12-11-2021 19:48-0400 Body weight 63.6 kg BALDOMERO DURESKA DO [facility] 12-11-2021 19:48-0400 Diastolic blood pressure 86 mm[Hg] BALDOMERO DURESKA DO [facility] 12-11-2021 19:48-0400 Heart rate 90 /min BALDOMERO DURESKA DO [facility] 12-11-2021 19:48-0400 Respiratory rate 18 /min BALDOMERO DURESKA DO [facility] 12-11-2021 19:48-0400 Systolic blood pressure 140 mm[Hg] BALDOMERO DURESKA DO [facility] 10-20-2021 14:58-0400 Body temperature 98.42 [degF] KRYSTAL VALLADARES MD [facility] 10-20-2021 14:58-0400 Body weight 63.6 kg KRYSTAL VALLADARES MD [facility] 10-20-2021 14:58-0400 Diastolic blood pressure 80 mm[Hg] KRYSTAL VALLADARES MD [facility] 10-20-2021 14:58-0400 Heart rate 82 /min KRYSTAL VALLADARES MD [facility] 10-20-2021 14:58-0400 Respiratory rate 18 /min KRYSTAL VALLADARES MD [facility] 10-20-2021 14:58-0400 Systolic blood pressure 127 mm[Hg] KRYSTAL VALLADARES MD [facility] 08-01-2021 22:25-0400 Respiratory rate 18 /min TOMMY FROMMELT DO [facility] 08-01-2021 21:52-0400 Body height 152.4 cm TOMMY FROMMELT DO [facility] 08-01-2021 21:52-0400 Body temperature 97.34 [degF] TOMMY FROMMELT DO [facility] 08-01-2021 21:52-0400 Body weight 68.2 kg TOMMY FROMMELT DO [facility] 08-01-2021 21:52-0400 Diastolic blood pressure 84 mm[Hg] TOMMY FROMMELT DO [facility] 08-01-2021 21:52-0400 Heart rate 81 /min TOMMY FROMMELT DO [facility] 08-01-2021 21:52-0400 Respiratory rate 16 /min TOMMY FROMMELT DO [facility] 08-01-2021 21:52-0400 Systolic blood pressure 159 mm[Hg] TOMMY WOLFF DO [facility] 01-11-2017 15:29-0400 BMI (Body Mass Index) 26.48 kg/m2 [facility] Work Phone: 01-11-2017 15:29-0400 BP Diastolic 93 mm[Hg] [facility] Work Phone: 01-11-2017 15:29-0400 BP Systolic 133 mm[Hg] [facility] [employer] Work Phone: 01-11-2017 15:29-0400 Height 154.31 cm [facility] Work Phone: 01-11-2017 15:29-0400 Pulse (Heart Rate) 65 /min [facility] Work Phone: 01-11-2017 15:29-0400 Respiratory Rate 16 /min [facility] [employer] Work Phone: 01-11-2017 15:29-0400 Weight 63.05 kg [facility] Work Phone: 02-03-2011 10:14-0400 Body Temperature 97.8 [degF] [facility] Work Phone: Encounters Encounter Date Encounter Type Care Provider Facility Start: 10-28-2024 End: 10-28-2024 Emergency department patient visit Dr. Yobany Snell MD Work Phone: -Emergency Department Work Phone: Start: 10-13-2024 ambulatory Jaswinder Muñiz Facility:[facility] Start: 09-29-2024 End: 09-29-[address] Yobany Snell MD Work Phone: [facility] Work Phone: Start: 09-29-2024 End: 09-29-[address] Jaswinder Muñiz MD -Cat Scan [facility] Work Phone: Start: 09-29-2024 End: 09-29-2024 ambulatory Jaswinder Muñiz Facility:[facility] Start: 09-04-2024 End: 09-04-[address] Jaswinder Muñzi MD -Laboratory [facility] Start: 09-04-2024 End: 09-04-2024 [facility] Start: 07-27-2024 ambulatory Abrahan Murryi ty:[facility] Start: 07-18-2024 End: 07-18-[address] Yobany Snell MD Work Phone: [facility] Work Phone: Start: 07-18-2024 End: 07-18-[address] Yobany Snell MD -Laboratory, Phy Office 3rd Flr Start: 07-18-2024 End: 07-18-2024 ambulatory Yobany Chi Channing Facility:[facility] Start: 05-15-2024 ambulatory Yobany Chi Channing Facility:[facility] Start: 04-24-2024 ambulatory Yobany Chi Channing Facility:[facility] Start: 04-17-2024 End: 04-17-[address] Yobany Snell MD -Laboratory, Phy Office 3rd Flr Start: 04-17-2024 End: 04-17-2024 ambulatory Yobany Chi Channing Facility:[facility] Start: 02-07-2024 End: 02-07-2024 ambulatory Yobany Chi Channing Facility:[facility] Start: 01-12-2024 End: 01-12-2024 ambulatory Yobany Chi Channing Facility:[facility] Start: 12-07-2023 ambulatory Yobany Chi Channing Facility:[facility] Start: 08-31-2023 End: 08-31-2023 ambulatory [facility] Work Phone: Start: 08-31-2023 End: 08-31-2023 Patient encounter procedure [facility]-Radiology, [facility] Work Phone: Start: 08-12-2023 End: 08-12-2023 ambulatory [facility] Work Phone: Start: 08-12-2023 End: 08-12-2023 Patient encounter procedure [facility]-Pulmonary Services/Neurology Work Phone: Start: 07-15-2023 End: 07-15-2023 ambulatory [facility] Work Phone: Start: 07-15-2023 End: 07-15-2023 Patient encounter procedure [facility]-Laboratory, Phy Office 3rd Flr Start: 06-24-2023 End: 06-24-2023 ambulatory [facility] Work Phone: Start: 06-24-2023 End: 06-24-2023 Patient encounter procedure [facility]-Radiology, [facility] Work Phone: Start: 06-21-2023 End: 06-21-2023 ambulatory [facility] Work Phone: Start: 06-21-2023 End: 06-21-2023 Patient encounter procedure [facility]-MRI - [facility] Work Phone: Start: 06-02-2023 End: 06-02-2023 ambulatory [facility] Work Phone: Start: 06-02-2023 End: 06-02-2023 Patient encounter procedure [facility]-MRI - [facility] Work Phone: Start: 05-03-2023 End: 05-03-2023 ambulatory [facility] Work Phone: Start: 05-03-2023 End: 05-03-2023 Patient encounter procedure [facility]-Laboratory, Phy Office 3rd Flr Start: 04-25-2023 End: 04-25-2023 Emergency department patient visit [facility]-Emergency Department Work Phone: Start: 04-15-2023 End: 04-15-2023 ambulatory [facility] Work Phone: Start: 04-15-2023 End: 04-15-2023 Patient encounter procedure [facility]-Laboratory, Phy Office 3rd Flr Start: 04-01-2023 End: 04-01-2023 ambulatory [facility] Work Phone: Start: 04-01-2023 End: 04-01-2023 Patient encounter procedure [facility]-Pulmonary Services/Neurology Work Phone: Start: 01-07-2023 End: 01-07-2023 ambulatory [facility] Work Phone: Start: 01-07-2023 End: 01-07-2023 Patient encounter procedure [facility]-Laboratory, Phy Office 3rd Flr Start: 11-05-2022 Telephone encounter Neftaly Coker MD Work Phone: Pain Management Comment on above: Patient Update Start: 10-20-2022 Refill Nelsy ADAMS-C Work Phone: Pain Management Comment on above: Refill Request Start: 10-18-2022 Refill Nelsy ADAMS-C Work Phone: Pain Management Comment on above: Refill Request Start: 09-11-2022 End: 09-11-2022 ambulatory NELSY CHAUDHARI Facility:[id number] Start: 08-12-2022 Refill Nelsy ADAMS-C Work Phone: Pain Management Comment on above: Refill Request Start: 07-27-2022 Telephone encounter Nelsy MINC Work Phone: Pain Management Comment on above: UDS/ patch count Start: 07-23-2022 End: 07-23-2022 ambulatory NELSY Munoz CHAUDHARI Facility:[id number] Start: 07-23-2022 End: 07-23-2022 ambulatory Nelsy ADAMS-C [...] Refill Request Start: 06-16-2022 Patient encounter procedure [facility]-Pulmonary Services/Neurology Start: 06-15-2022 End: 06-15-2022 ambulatory [facility] Work Phone: Start: 06-15-2022 End: 06-15-2022 Patient encounter procedure [facility]-Laboratory, Phy Office 3rd Flr Start: 06-11-2022 [...] Refill Request Start: 04-07-2022 End: 04-07-2022 ambulatory [facility] Work Phone: Start: 04-07-2022 End: 04-07-2022 Patient encounter procedure [facility]-Laboratory, Phy Office 3rd Flr Start: 03-23-2022 End: 03-23-2022 ambulatory NELSY CHAUDHARI Facility:[id number] Start: 03-23-2022 End: 03-23-2022 Patient encounter procedure [...] Start: 02-09-2022 End: 02-09-2022 ambulatory NELSY CHAUDHARI Facility:[id number] Start: 01-06-2022 Refill Nelsy ADAMS-C Work Phone: Pain Management Comment on above: Refill Request Start: 12-29-2021 End: 12-29-2021 Refill Nelsy ADAMS-C Work Phone: Pain Management Comment on above: Refill Request; Refi ll Request Start: 12-25-2021 End: 12-26-2021 Evaluation and management of inpatient CARMEN Wang OLIVER RESAWYER-REPRODUCTION PRODUCTION MANAGER [facility] Start: 12-11-2021 End: 12-11-2021 Emergency department patient visit BALDOMERO HEAD DO [facility] Start: 11-28-2021 Refill Neftaly Tyson MD Work Phone: Pain Management Comment on above: Refill Request Start: 10-20-2021 End: 10-20-2021 Emergency department patient visit KRYSTAL VALLADARES MD [facility] Start: 10-14-2021 End: 10-14-2021 Subsequent hospital visit by physician Nelsy Chaudhari PA-C Work Phone: [facility] Comment on above: FOLLOW UP Start: 09-01-2021 End: 09-01-2021 Subsequent hospital visit by physician Nelsy Chaudhari PA-C Work Phone: [facility] Comment on above: FOLLOW UP Start: 08-01-2021 End: 08-01-2021 Emergency department patient visit TOMMY WOLFF DO [facility] Start: 09-18-2016 End: 09-18-2016 ambulatory [facility] Procedures Date Procedure Procedure Detail Performing Clinician [...] Diagnostic endoscopi c examination of ovary TOMMY Vouch Comment on above: fibroids Start: 07-19-2015 End: 07-31-2015 Drain/inject, joint/bursa Nelsy East Work Phone: Start: 04-03-2015 End: 04-17-2015 Drain/inject, joint/bursa Nelsy East Work Phone: Start: 02-21-2013 Mammography Nelsy ADAMS-Trino Work Phone: Start: 01-15-2010 Colonoscopy Nelsy ADAMS-Trino Work Phone: Start: 11-18-1992 section ESTEPHANIE Carmona [employer] [place] Colonoscopy TOMMY KIMBERLYEdSurge [place] Decompression of med spenser nerve TOMMY Vouch Comment on above: Right H/O: surgery Hx of explorator y laparotomy Influenza Types A,B Direct FA (RK) Respiratory syncytia l virus antigen assay Plan of Treatment Date Care Activity Detail Author Start: 10-28-2024 [facility] Start: 06-24-2023 Procedure [facility] Start: 04-25-2023 [facility] Start: 04-15-2023 Procedure [facility] Start: 01-15-2023 Influenza [facility] Start: 01-15-2022 Influenza vaccination [facility] Start: 07-30-2021 COVID-19 VACCINE (4 - Booster for Moderna series) COVID-19 VACCINE (4 - Booster for Moderna series) [facility] Start: 05-27-2021 COVID-19 VACCINE (4 - Booster for Moderna series) COVID-19 VACCINE (4 - Booster for Moderna series) [facility] Start: 02-14-2018 DIABETES SCREEN DIABETES SCREEN [facility] Start: 01-27-2017 End: 01-27-2017 Appointment Appointment [facility] Work Phone: Start: 01-11-2017 End: 01-11-2017 Diagnostic colonoscopy Colonoscopy [facility] Work Phone: Start: 01-11-2017 End: 01-12-2017 Follow Up Appt Other Follow Up Appt Other [facility] Work Phone: Start: 12-10-2016 HPV TESTING HPV TESTING [facility] Start: 12-10-2016 PAP TESTING PAP TESTING [facility] Start: 04-03-2015 End: 04-03-2015 Mri jnt of lwr extre w/o dye MRI Joint Lower Extremity [facility] Work Phone: Start: 04-03-2015 End: 04-03-2015 X-ray exam, knee, 4 or more X-Ray, Knee [facility] Work Phone: Start: 03-06-2014 LIPID SCREEN LIPID SCREEN [facility] Start: 02-21-2014 Mammography MAMMOGRAM [facility] Start: 01-15-2011 Colonoscopy COLONOSCOPY [facility] Start: 01-15-2011 COLORECTAL CANCER SCREENING COLORECTAL CANCER SCREENING [facility] Start: 2009 Influenza vaccination LUNG CANCER SCREENING [facility] Start: 2009 SHINGRIX VACCINE (1 of 2) SHINGRIX VACCINE (1 of 2) [facility] Start: 2004 COLOGUARD (FIT-DNA) COLOGUARD (FIT-DNA) [facility] Start: [address] COLONOGRAPHY [facility] Start: 2004 FECAL OCCULT BLOOD FECAL OCCULT BLOOD [facility] Start: 2004 SIGMOIDOSCOPY SIGMOIDOSCOPY [facility] Start: 02-15-2002 Urine microalbumin profile DTAP,TDAP,TD (1 - Tdap) [facility] Start: 1977 ANNUAL PCP TEAM CHRONIC DISEASE VISIT ANNUAL PCP TEAM CHRONIC DISEASE VISIT [facility] Start: 1977 HEPATITIS C SCREENING HEPATITIS C SCREENING [facility] Start: 1977 HIV SCREENING HIV SCREENING [facility] Start: 1977 SPIROMETRY SPIROMETRY [facility] Start: 1965 PNEUMOCOCCAL (1 - PCV) PNEUMOCOCCAL (1 - PCV) [place] Start: 1964 COVID-19 VACCINE (#1) COVID-19 VACCINE (#1) [facility] Start: 1964 COVID-19 VACCINE (1) COVID-19 VACCINE (1) [facility] Start: 1959 COVID-19 VACCINE (#1) COVID-19 VACCINE (#1) [facility] Patient Education [facility] Work Phone: Patient referral [facility] Work Phone: [facility] Immunizations Immunization Date Immunization Notes Care Provider Fa cili 04-01-2021 influenza virus vacc ine, unspecified formulation CARMEN BOYD RESAWYER-REPRODUCTION PRODUCTION MANAGER [facility] 04-01-2021 pneumococcal polysaccharide vaccine, 23 valent CARMEN BOYD RESAWYER-REPRODUCTION PRODUCTION MANAGER [facility] 04-01-2021 SARS-CoV-2 (COVID-19 ) mRNA-1273 vaccine CARMEN BOYD RESAWYER-REPRODUCTION PRODUCTION MANAGER [facility] 11-15-2020 SARS-CoV-2 (COVID-19 ) mRNA-1273 vaccine CARMEN BOYD RESAWYER-REPRODUCTION PRODUCTION MANAGER [facility] 10-08-2020 SARS-CoV-2 (COVID-19 ) [id number] vaccine CARMEN BOYD RESAWYER-REPRODUCTION PRODUCTION MANAGER [facility] 05-29-2020 influenza virus vacc ine, unspecified formulation CARMEN BOYD RESAWYER-REPRODUCTION PRODUCTION MANAGER [facility] 05-29-2020 pneumococcal polysaccharide vaccine, 23 valent CARMEN KINGOSMAN RESAWYER-REPRODUCTION PRODUCTION MANAGER [facility] 02-16-2018 influenza virus vacc ine, unspecified formulation CARMEN KINGOSMAN RESAWYER-REPRODUCTION PRODUCTION MANAGER [facility] 06-10-2017 influenza virus vacc ine, unspecified formulation CARMENBlaine KINGOSMAN RESAWYER-REPRODUCTION PRODUCTION MANAGER [facility] 02-14-2009 influenza virus vacc ine, unspecified formulation Nelsy Chaudhari PA-C Work Phone: [facility] Work Phone: 04-06-2007 influenza virus vacc ine, unspecified formulation Nelsy Chaudhari PA-C Work Phone: [facility] Work Phone: 02-14-2002 tetanus and diphther ia toxoids, adsorbed, preservative free, for adult use (2 Lf of tetanus toxoid and 2 Lf of diphtheria toxoid) Nelsy Chaudhari PA-C Work Phone: [facility] Work Phone: 02-14-2002 tetanus and diphther ia toxoids, adsorbed, preservative free, for adult use (5 Lf of tetanus toxoid and 2 Lf of diphtheria toxoid) TOMMY WOLFF DO [facility] Payers Date Payer Category Payer Self-pay [id number] 2021 Medicaid [id number] 2021 Medicaid MEDICAID [facility] MEDICAID [id number] 2021-Present [phone] [address] [place] [address] Medicaid [id number] 2021 Medicaid [id number] 2020 Medicare HUMANA MEDICARE HUMANA GOLD PLUS [id number] 2020-Present [phone] [address] [address] [place] [address] HMO [id number] 2020 Medicare HUMANA MEDICARE HUMANA GOLD PLUS [id number] 2020-Present [phone] [address] [address] [place] [address] HMO [id number] 2020 Private Health Insurance [id number] 2000 Medicare MEDICARE MEDICAR E A AND B [id number] 2000-Present [phone] [place] [address] Medicare [id number] 2000 Medicare MEDICARE PART A B [id number] Unknown [id number] 62 Unknown [id number] 62 Unknown [id number] 62 Unknown [id number] 62 Unknown [id number] 62 Unknown [id number] 62 Unknown [id number] 62 Unknown [id number] 62 Unknown [id number] 62 Unknown [id number] 62 Unknown [id number] 62 Unknown [id number] 62 Social History Date Type Detail Facility Start: 03-29-2019 Light tobacco smoker (finding) [facility] Start: 1960 Sex Assigned At Female A [facility] Start: 12-29-2021 End: 10-28-2024 Tobacco smoking status MDIS Smokes tobacco daily [facility] History of tobacco use Cigarette Smoker [facility] Start: 02-20-2015 End: 09-11-2022 Alcohol intake Current non-drinker of alcohol (finding) [facility] Start: 1960 Sex Assigned At Not on file [facility] Start: 10-04-2021 End: 03-23-2022 Exposure to SARS-CoV-2 (event) Not sure [facility] Start: 12-25-2021 Tobacco smoking status Heavy t obacco smoker (finding) [facility] Start: 12-29-2021 End: 07-23-2022 Cigarettes smoked current (pack per day) - Reported 1 [facility] Start: 12-29-2021 End: 07-23-2022 Tobacco use and exposure Smokeless tobacco non-user [facility] Start: 09-06-2020 End: 04-25-2023 Tobacco smoking status NHIS Unknown if ever smoked [facility] Start: 09-06-2020 Cigarettes [facility] Start: 08-01-2024 Sex Female (finding) [facility] Functional Status Date Assessment Result Facility 12-26-2021 Functional Status bilateral knee high [facility] 12-26-2021 Functional Status Independent [facility] 12-26-2021 Functional Status Apartment [facility] 12-26-2021 Functional Status [facility] 12-26-2021 Functional Status [facility] 12-26-2021 Functional Status Demonstrates C orrect Call Light Use Yes [facility] 12-25-2021 Functional Status Moderate assistance [facility] 12-25-2021 Functional Status Dinner Percent 20 [facility] 12-25-2021 Functional Status Independent [facility] 12-25-2021 Functional Status Sensory Deficits None A [facility] 12-25-2021 Functional Status Environmental Safety Implemented Adequate room lighting, Bed in low position, Call device within reach [facility] 12-25-2021 Functional Status [facility] 12-11-2021 Functional Status Ambulating in guerrero, Ambulating in room, Awake [facility] 12-11-2021 Functional Status Standard Safet y ID band on, Allergy Band on, Call device within reach, Bed in low position, Wheels locked, Upper/Half-Length side-rails up, personal items within reach, Visitor at bedside [facility] 10-20-2021 Functional Status Standard Safet y ID band on, Allergy Band on, Call device within reach, Bed in low position, Wheels locked, Upper/Half-Length side-rails up, Bedside Cart Locked, Safety level maintained [facility] Mental Status Date Assessment Result Facility 06-24-2023 Cognitive function Awake;Alert;Appropriat e [facility] Work Phone: 12-26-2021 Mental Status Oriented x 4 [facility] 12-26-2021 Mental Status [facility] 12-26-2021 Mental Status [facility] 12-26-2021 Mental Status [facility] 12-11-2021 Mental Status Orientation Oriented x 4 [facility] 12-11-2021 Mental Status [facility] 10-20-2021 Mental Status Orientation Oriented x 4 [facility] Clinical Notes 05-19-2007 to 10-28-2024 Note Date & Type Note Facility 10-28-2024 Discharge summary [facility] 10-28-2024 Radiology Diagnostic study note [facility] Imaging Services [address], [place] [address] Abdomen/Pelvis without Cont MR#: [id number] Acct: [id number] Name: NAVIN AUGUST I Rep #: [id number] : 1960 F 64 From: Odalis Lara MD PCP: Dr. Jaswinder Muñiz MD Status: REG ER Study:Abdomen/Pelvis without Cont Date of Exa m: 10/28/24 Exam# [id number] Ordering Dr: Erlin Perla MD PROCEDURE: ABDOMEN/PELVIS [...] IMPRESSION: No acute abdominopelvic finding. Reading [facility] CC: Dr. Jaswinder Muñiz MD; Dr. Abdirizak Perla MD ~ Metal Mockup Maker: Signed [facility] 10-28-2024 Discharge summary Note Date/Time October 28, 2024 9:31pm [facility] Medical Records Department [address] [place] [address] Emergency Department Summary 10/28/24 MR#: [id number] Acct: [id number] Name: NAVIN AUGUST I Rep #:[id number] : 1960 64 From: Abdirizak Perla [...] % (Auto) 61.1 Lymph % (Auto) 28.2 Gem % (Auto) 7.1 Eos % (Auto) 2.3 [...] Clarity Clear Urine pH 6.5 Ur Specific [place] 1.010 Urine Protein Negative Urine Glucose (UA) [...] IMPRESSION: No acute abdominopelvic finding. Reading Location[facility] Discharge Plan Triage Chief Complaint: [...] with your doctor if not. Print Language: Slovak Disposition Disposition: Home, Self Care What to do if you have Problems For any increased pain, shortness of breath, bleeding, nausea or vomiting, chestpain, or any unexpected problems, contact your Primary Care Provider. Call [facility] ([phone]) or report to the closest Emergency Room. Call 911 if necessary. 10/28/241 <Electronically signed by Abdirizak Perla MD> Cosigner Signature (if applicable): CC: Dr. Jaswinder Muñiz MD ~ Signed [facility] Work Phone: [phone]) 105-859505-17-2025 Radiology Diagnostic study note [facility] Imaging Services [address], [place] [address] Low Dose CT Lung Screening MR#: [id number] Acct: [id number] Name: NAVIN AUGUST I Rep #: [id number] : 1960 F 64 From: Renee Mcknight MD PCP: Dr. Jaswinder Muñiz MD Status: REG CL I Study:Low Dose CT Lung Screening Date of Exam : 09/29/24 Exam# [id number] Ordering Dr: Aury Muñiz MD EXAM: CT [...] in 12 months is recommended. Reading Location: [facility] CC: Dr. Jaswinder Muñiz MD ~ Metal Mockup Maker: Signed [facility]06-22-2023 Miscellaneous Notes* Telephone Encounter - Nelsy [...] future Liliana Graham RN documented [facility] Miscellaneous Notes* Telephone Encounter - Nelsy Chaudhari PA-C - 10/20/2022 3:13 PM EDT The following approved medication requests have been transmitted electronically. Requested Prescriptions Pending Prescriptions Disp Refills fentaNYL (DURAGESIC) 25 mcg/hr 15 Patch 0 Sig: Apply 1 Patch as directed every 48 hours for 30 days. Do not start before October 22, 2022. Nelsy Chaudhari PA-C * Telephone Encounter [...] advise. Liliana Graham RN documented in this encounterK[facility]06-05-2023 Miscellaneous Notes* Telephone Encounter - Nelsy [...] advise. Liliana Graham RN documented in this encounterK[facility]04-28-2023 NoteHNO ID: [id number] Author: Nelsy Chaudhari PA-C Service: ? Author Type: Physician Stripper Preliminary Type: Progress Notes Filed: 09/11/2022 2:24 PM Note Text: This note was created using Stateless Networksriter. Subjective Navin August is a 62 year [...] Follow-up in office in (more content not included)...[facility] 08-12-2022 Miscellaneous Notes* Telephone Encounter - Nelsy Chaudhari PA-C - 08/12/2022 3:01 PM EDT The following approved medication requests have been transmitted electronically. Requested Prescriptions Pending Prescriptions Disp Refills fentaNYL 37.5 mcg/hour pt72 15 Patch 0 Sig: Apply 1 Patch as directed every 48 hours for 30 days. Do not start before August 18, 2022. Nelsy Chaudhari PA-C documented in this encounterK[facility]03-13-2023 Miscellaneous Notes* Telephone Encounter - Liliana Graham RN - 07/27/2022 1:56 PM EDT Arrived for UDS Completed In addition, brought fentanyl 50 mcg patches for count ( see AG SPINE PAIN COUNT) Count appropriate Liliana Graham RN July 27, 2022 2:00 PM documented in this encounterKet[facility] Hospital03-09-2023 NoteHNO ID: [id number] Author: Nelsy Chaudhari PA-C Service: ? Author Type: Physician Stripper Preliminary Type: Progress Notes Filed: 07/23/2022 2:48 PM Note Text: I have communicated my name and active licensure. The patient's identity and physical location were verified at the time of this visit. Either the patient or their legal resources representative has been informed of the risks and benefits of -- and alternatives to -- treatment through a remote evaluation and consents to proceed with the evaluation remotely. This note was created using TheWrap. Subjective Navin August is a 62 year [...] like a new order (more content not included)...[facility] 07-23-2022 Instructions* Patient Instructions* Nelsy Chaudhari PA-C [...] seen at this time. documented in this encounterKet[facility]03-09-2023 History of Present illness Narrative* Nelsy Chaudhari PA-C - 07/23/2022 2:15 PM EST I have communicated my name and active licensure. The patient's identity and physical location wereverified at the time of this visit. Either the patient or their legal resources representative has been informed of the risks and benefits of -- and alternatives to -- treatment through a remote evaluation andconsents to proceed with the evaluation remotely. This note was created using TheWrap. Subjective Navin August is a 62 year [...] G89.29 Nelsy Chaudhari PA-C documented in this encounterKet[facility] Hospital03-01-2023 Miscellaneous Notes* Telephone Encounter - Nelsy [...] advise. Liliana Graham RN documented in this encounterKet[facility] Hospital01-26-2023 NoteHNO ID: [id number] Author: Nelsy Chaudhari PA-C Service: ? Author Type: Physician Stripper Preliminary Type: Progress Notes Filed: 06/11/2022 2:22 PM Note Text: This note was created using Stateless Networksriter. Subjective Navin August is a 62 year [...] ICD9: 719.46, 338.29, ICD10: M25.569, G89.29 ANGIE [facility]01-26-2023 Instructions* Patient Instructions* PAKO MikeC - 06/11/2022 [...] seen at this time. documented in this encounterKettering [facility] Hospital01-26-2023 History of Present illness Narrative* Nelsy Chaudhari PA-C - 06/11/2022 2:00 PM EST This note was created using STYLHUNTter. Subjective Navin August is a 62 year [...] G89.29 Nelsy Chaudhari PA-C documented in this encounterKettering [facility] Hospital12-29-2022 Miscellaneous Notes* Telephone Encounter - Nelsy [...] advise. Liliana Graham RN documented in this encounterKet[facility] Hospital12-19-2022 NoteHNO ID: [id number] Author: Nelsy Chaudhari PA-C Service: ? Author Type: Physician Stripper Preliminary Type: Progress Notes Filed: 05/04/2022 3:11 PM Note Text: This note was created using Stateless Networksriter. Subjective Navin uAgust is a 62 year old female. The [...] M25.569, G89.29 Nelsy Rutherford (more content not included)...[facility]12-19-2022 Instructions* Patient Instructions* Nelsy Chaudhari PA-C - [...] seen at this time. documented in this encounterKet[facility] Hospital12-19-2022 History of Present illness Narrative* Nelsy Chaudhari PA-C - 05/04/2022 2:36 PM EST This note was created using Stateless Networksriter. Subjective Navin August is a 62 year [...] G89.29 Nelsy Chaudhari PA-C documented in this encounterKet[facility] Hospital12-05-2022 Miscellaneous Notes* Telephone Encounter - Nelsy [...] advise. Liliana Graham RN documented in this encounterKet[facility] Hospital11-30-2022 Miscellaneous Notes* Telephone Encounter - Nelsy [...] advise. Liliana Graham RN documented in this encounterK[facility] Hospital11-07-2022 NoteHNO ID: [id number] Author: Nelsy Chaudhari PA-C Service: ? Author Type: Physician Stripper Preliminary Type: Progress Notes Filed: 03/23/2022 3:10 PM Note Text: This note was created using Stateless Networksriter. Subjective Navin August is a 62 year [...] ICD9: 720.2, ICD10: M46.1 (more content not included)...[facility]11-07-2022 Instructions* Patient Instructions* Nelsy Chaudhari PA-C - [...] seen at this time. documented in this encounterKet[facility] Hospital11-07-2022 History of Present illness Narrative* Nelsy Chaudhari PA-C - 03/23/2022 2:53 PM EST This note was created using Stateless Networksriter. Subjective Navin August is a 62 year [...] G89.29 Nelsy Chaudhari PA-C documented in this encounterKettering [facility] Hospital11-03-2022 Miscellaneous Notes* Telephone Encounter - Nelsy [...] 2022 2:55 PM EDT Not available at [facility] [place] Liliana Graham RN 2022 2:56 PM Requested Prescriptions Pending Prescriptions Disp Refills fentaNYL (DURAGESIC) 50 mcg/hr 15 Patch 0 Sig: APPLY 1 PATCH TO SKIN EVERY OTHER DAY DIRECTED Please review and advise. Liliana Graham RN documented in this encounterKettering [facility] Hospital09-26-2022 NoteHNO ID: [id number] Author: Nelsy Chaudhari PA-C Service: ? Author Type: Physician Stripper Preliminary Type: Progress Notes Filed: 02/09/2022 3:27 PM Note Text: This note was created using STYLHUNTter. Subjective Navin August is a 61 year [...] Sacroiliitis (HCC) - IC (more content not included)...[facility] 01-06-2022 Miscellaneous Notes* Telephone Encounter - Nelsy [...] advise. Liliana Graham RN documented in this encounterKet[facility] Hospital08-16-2022 Miscellaneous Notes* Telephone Encounter - Nelsy [...] DIRECTED Liliana Graham RN documented in this encounterKettering [facility] Hospital08-15-2022 NoteHNO ID: [id number] Author: Neftaly Coker MD Service: ? Author Type: Physician Type: Progress Notes Filed: 12/30/2021 3:33 PM Note Text: This note was created using Stateless Networksriter. Subjective Navin August is a 61 year [...] and may contain minor errors. Neftaly Coker [facility]08-12-2022 Nurse Progress note Patient informed of discharge. [...] want your help. Patient then went into [facility] to go down elevator. Redirected patient to stay on floor until daughter arrived. Daughter arrived a few minutes later in elevator with security and discharge paperwork reviewed with daughter. Patient and her daughter left ambulatory via elevator. Digitally Signed by Stephanie Hidalgo RN on 12/26/2021 03:25 PM [facility]08-12-2022 Note Discharge Instructions Thank you for allowing [facility] to assist you with your healthcare needs. The following is importantdischarge information regarding your hospital visit. Your Care Team Carmen Boyd RESAWYER Your Diagnosis Hypo-osmolality and hyponatremia Bipolar disease, chronic Asthma Bronchitis, chronic Hypothyroid Fibromyalgia Anxiety Medical screening exam What to do next Follow Up Appointments Follow Up with WILL SNELL MD When Within 5 to 7 days Why: Message left for PCP office. Recheck BMP in 1 week. Where: [facility] [address] [place] [address] [address] [place] [address]- The Following Activity and Diet Have Been [...] hours Fibromyalgia Duration: 4 Days Pickup at [id number] Unchanged acetaminophen (acetaminophen 325 mg oral capsule) [...] spasm 11 AM Pharmacy Information [id number]: [address], [place] [id number] [phone] Please take this list to your next [...] Document Reviewed: 01/13/2012 ExitCare Patient Information [address] [facility]. This information is not intended to replace advicegiven to you by your health care provider. Make sure you discuss any questions you have with your health care provider. Additional Information VACCINATE! IT SAVES LIVES! Members of the community who have not yet received the COVID-19 vaccine and would like to receive it can visit one of [facility] vaccine clinics. There are many vaccine clinic locations within the [facility]. For locations and available times, please visit [email or web address] It is important to note that some COVID mobile vaccine clinics are held outdoors and may be canceled in rainy or stormy conditions. To learn more about pediatric vaccinations (ages 5-11), we invite you to visit the [facility] webpage. [email or web address]://[email or web address]/pages/[email or web address]-Wjxkuehobyf-Vexmiaovxg-Rmmel-Bwc stions.htmlTo learn more about the COVID-19 vaccine, we invite you to visit the [facility] website for a list of frequently asked questions. [email or web address] _[email or web address].pdf [facility] Patient Portal Access Instructions: Stay connected with your healthcare team and access your personal medical information anytime with the [facility] Patient Portal.If you would like a full copy of your medical records, please contact the [facility] Medical Records Department, Wednesday through Wednesday between 8a.m. and 4:30p.m. Please follow the directions below to access the portal: 1.Access the email account you provided upon registration to the [facility].2.Look for an invitation email from [facility].3.Open the email and access the invitation link: Accept Invitation to [facility]4.Fill in the required renner to create your account. Sign into [email or web address] with your username and password that you [...] you will allow to register on the [facility] Patient Portal for access to your information. You can also access the [facility] Patient Portal on the [employer]. Simply click on Health Records under [employer] and then click on the [facility] logo. HOW TO SAFELY DISPOSE OF PRESCRIPTION [...] Call your local pharmacy or go to [email or web address] to find one close to you.3.Make use of household items: Use cat litter or old coffee grounds to dispose medications if other options arenot available. Mix your drugs with these household products, seal them in an airtight container andthrow it into the garbage. Call [facility]: [phone] to be sure your drugs can be [...] CHART COPY. Signatures Patient Education Materials Hyponatremia, Zvdt-gs-Bghw Medication Leaflets My discharge plan and instructions have been reviewed and explained to me and I,NAVIN AGUUST understand my current condition and have read and understand these discharge instructions. I have received a written copy of the plan/instructions. If I have questions, I am aware that I should contact my doctor. Patient/Nematology Teacher Signature: Date/Time: Relationship to Patient: Witness Name/Signature: Date/Time: [facility]08-12-2022 Hospital Discharge instructions Patient Education 12/26/2021 12:37:18 Hyponatremia, Wdxh-gj-Kwdp Hyponatremia Hyponatremia is when the salt (sodium) [...] Document Reviewed: 01/13/2012 ExitCare Patient Information 2015 [employer]. This information is not intended to replace advicegiven to you by your health care provider. Make sure you discuss any questions you have with your health care provider. Follow Up Care 12/25/2021 09:58:36 With:WILL SNELL MD Address: ADULT GERIATRICS/[place] [facility] [address] [place] [address]- When:5 to 7 days Comments:Message left for PCP office. Recheck BMP in 1 week. [facility] 08-12-2022 Nurse Progress note Patient requesting COVID test. Spoke to RESAWYER and test was ordered. When patient was told how long the test would take she refused. Patient stated, I'm not waiting that long, I refuse. Digitally Signed by Katheryn Delgado LPN on 12/26/2021 01:36 PM [facility]08-11-2022 Note Date of Service 12/25/2021 Chief Complaint States that she is concerned that she has ammonia toxicity. History of Present Illness Patient is a 61-year-old female, who follows with Dr. Snell with a past medical history significant for bipolar disorder, asthma, fibromyalgia, and hypothyroidism, presents to [facility] emergency department with the chief complaint [...] by CARMEN BOYD on 12/25/2021 04:34 PM [facility]08-11-2022 Evaluation + Plan noteExtracted from: Title:History and [...] Tests Pending * COVID-19 Only (AO) 12/26/21 [facility] 08-11-2022 Note ORIGINAL EXAMINATION: CT OF [...] Date: 12/25/2021 12:16:50 PM Ordering Provider: KRYSTAL MUÑOZ[address]11-2022 Note ORIGINAL EXAMINATION: ONE XRAY VIEW [...] Date: 12/25/2021 12:13:51 PM Ordering Provider: KRYSTAL ELY[address]11-2022 Note ORIGINAL EXAMINATION: ONE XRAY VIEW [...] Date: 12/25/2021 12:13:51 PM Ordering Provider: [facility]Nichole [facility] Note ORIGINAL EXAMINATION: CT OF THE HEAD [...] Date: 12/25/2021 12:16:50 PM Ordering Provider: [facility]AL [facility]Holy [facility] Hospital Discharge instructions Patient Education [...] body part Frequent bruising for unknown reasons [id number] [employer]. [address] [place] [address], [place] [address]. All rights reserved. This information is not intended as a substitute for professional medical care. Always follow yourhealthcare professional's instructions. Follow Up Care 12/11/2021 19:44:25 With:WILL SNELL MD Address: ADULT GERIATRICS/[address] [place] [id number]- When:2-4 days [facility] Gabrielashanelle Lazar 07-28-2022 Note Discharge Instructions [...] ADULT [facility]IATRICS/[place] [address] [place] [address]- Allergies Levaquin (Tongue swelling) Neurontin (Rash) [...] body part Frequent bruising for unknown reasons [id number] [employer]. [address] [place] [address], [place] [address]. All rights reserved. This information is not intended as a substitute for professional medical care. Always follow yourhealthcare professional's instructions. Additional Information VACCINATE! IT SAVES LIVES! Members of the community who have not yet received the COVID-19 vaccine and would like to receive it can visit one of [facility] vaccine clinics. There are many vaccine clinic locations within the [facility]. For locations and available times, please visit [email or web address]. It is important to note that some COVID mobile vaccine clinics are held outdoors and may be canceled in rainy orstormy conditions. To learn more about pediatric vaccinations (ages 5-11), we invite you to visit the [facility] webpage. https://www.[email or web address]/pages/[email or web address]-[email or web address]-Jqvfkgbutz-Lydhf-[email or web address] stions.htmlTo learn more about the COVID-19 vaccine, we invite you to visit the [facility] website for a list of frequently asked questions. [email or web address] _[email or web address].pdf [facility] Patient Portal Access Instructions: Stay connected with your healthcare team and access your personal medical information anytime with the [facility] Patient Portal. If you would like a full copy of your medical records please contact the [facility] Medical Records Department Wednesday through Wednesday between 8a.m. and 4:30p.m. Please follow the directions below to access the portal: 1.Access the email account you provided upon registration to the [facility].2.Look for an invitation email from [facility].3.Open the email and access the invitation link: Accept Invitation to [facility]4.Fill in the required renner to create your account. Sign into [email or web address] with your username and password that you [...] you will allow to register on the [facility] Patient Portal for access to your information. You can also access the [facility] Patient Portal on the [employer] livia. Simply click on Health Records under [employer] and then click on the [facility] logo. HOW TO SAFELY DISPOSE OF PRESCRIPTION [...] Call your local pharmacy or go to [email or web address] to find one close to you.3.Make use of household items: Use cat litter or old coffee grounds to dispose medications if other options arenot available. Mix your drugs with these household products, seal them in an airtight container andthrow it into the garbage. Call [facility]: [phone] to be sure your drugs can be [...] aware that I should contact my doctor. 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 Liliana Graham RN [facility] Miscellaneous Notes* Telephone Encounter - Liliana [...] advise. Liliana Graham RN [facility] Hospital Discharge instructions Patient Education 10/20/2021 [...] foods again, start with small amounts of ubtk-kc-szoqxm, low- fat foods. These include apple sauce, [...] increase stomach acid. Don't use aspirin or gxwc-xzy-xwuiuky pain and fever medicines, if possible. This includes nonsteroidal anti-inflammatory drugs (NSAIDs). Lose excess weight. Finish eating at least 2 hours before you go to bed or lie down. Raise the head of your bed. [id number] [employer]. [address] [place] [address]. All rights reserved. This information is not intended as a substitute for professional medical care. Always follow yourhealthcare professional's instructions. Follow Up Care 10/20/2021 14:48:46 With:WILL SNELL MD Address: ADULT GERIATRICS/[address] [place] [address]- When:2-4 days [facility] 06-06-2022 Evaluation + Plan note Diagnostic Tests Pending * Urinalysis 10/20/21 [facility] 2022 Hospital Discharge instructions Patient Education [...] teeth? Are you happy with your smile? [phone] [employer]. [address] [place] [address]. All rights reserved. This information is not intended as a substitute for professional medical care. Always follow yourhealthcare professional's instructions. Follow Up Care 08/01/2021 21:40:00 With:WILL SNELL MD [facility] [facility] [address] [facility] [address] [place] [address]- When:2-4 days [facility] 09-16-2015 History of Past illness Narrative* Problem Noted Date Resolved Date Chronic back pain 01/30/2015 12/29/2021 Pain in joint, lower leg 01/01/2008 022 Abnormal weight gain 05/19/2007 01/15/2010 Lumbago 12/29/2021 documented as of this encounter (statuses as of 12/30/2021) [facility] History of Past illness Narrative* Problem Noted Date Resolved Date Chronic back pain 01/30/2015 12/29/2021 Pain in joint, lower leg 01/01/2008 022 Abnormal weight gain 05/19/2007 01/15/2010 Lumbago 12/29/2021 documented as of this encounter (statuses as of 01/06/2022) [address]16-2015 History of Past illness Narrative* Problem Noted Date Resolved Date Chronic back pain 01/30/2015 12/29/2021 Pain in joint, lower leg 01/01/2008 022 Abnormal weight gain 05/19/2007 01/15/2010 Lumbago 12/29/2021 documented as of this encounter (statuses as of 2022) [address]16-2015 History of Past illness Narrative* Problem Noted Date Resolved Date Chronic back pain 01/30/2015 12/29/2021 Pain in joint, lower leg 01/01/2008 022 Abnormal weight gain 05/19/2007 01/15/2010 Lumbago 12/29/2021 documented as of this encounter (statuses as of 03/23/2022) [address]16-2015 History of Past illness Narrative* Problem Noted Date Resolved Date Chronic back pain 01/30/2015 12/29/2021 Pain in joint, lower leg 01/01/2008 022 Abnormal weight gain 05/19/2007 01/15/2010 Lumbago 12/29/2021 documented as of this encounter (statuses as of 04/15/2022) [address]16-2015 History of Past illness Narrative* Problem Noted Date Resolved Date Chronic back pain 01/30/2015 12/29/2021 Pain in joint, lower leg 01/01/2008 022 Abnormal weight gain 05/19/2007 01/15/2010 Lumbago 12/29/2021 documented as of this encounter (statuses as of 04/20/2022) [address]16-2015 History of Past illness Narrative* Problem Noted Date Resolved Date Chronic back pain 01/30/2015 12/29/2021 Pain in joint, lower leg 01/01/2008 022 Abnormal weight gain 05/19/2007 01/15/2010 Lumbago 12/29/2021 documented as of this encounter (statuses as of 05/04/2022) [address]16-2015 History of Past illness Narrative* Problem Noted Date Resolved Date Chronic back pain 01/30/2015 12/29/2021 Pain in joint, lower leg 01/01/2008 022 Abnormal weight gain 05/19/2007 01/15/2010 Lumbago 12/29/2021 documented as of this encounter (statuses as of 05/20/2022) [address]16-2015 History of Past illness Narrative* Problem Noted Date Resolved Date Chronic back pain 01/30/2015 12/29/2021 Pain in joint, lower leg 01/01/2008 022 Abnormal weight gain 05/19/2007 01/15/2010 Lumbago 12/29/2021 documented as of this encounter (statuses as of 06/11/2022) [facility] History of Past illness Narrative* Problem Noted Date Resolved Date Chronic back pain 01/30/2015 12/29/2021 Pain in joint, lower leg 01/01/2008 022 Abnormal weight gain 05/19/2007 01/15/2010 Lumbago 12/29/2021 documented as of this encounter (statuses as of 07/15/2022) [facility] History of Past illness Narrative* Problem Noted Date Resolved Date Chronic back pain 01/30/2015 12/29/2021 Pain in joint, lower leg 01/01/2008 022 Abnormal weight gain 05/19/2007 01/15/2010 Lumbago 12/29/2021 documented as of this encounter (statuses as of 07/23/2022) [facility] History of Past illness Narrative* Problem Noted Date Resolved Date Chronic back pain 01/30/2015 12/29/2021 Pain in joint, lower leg 01/01/2008 022 Abnormal weight gain 05/19/2007 01/15/2010 Lumbago 12/29/2021 documented as of this encounter (statuses as of 07/28/2022) [facility] History of Past illness Narrative* Problem Noted Date Resolved Date Chronic back pain 01/30/2015 12/29/2021 Pain in joint, lower leg 01/01/2008 022 Abnormal weight gain 05/19/2007 01/15/2010 Lumbago 12/29/2021 documented as of this encounter (statuses as of 08/12/2022) [place] [address]-16-2015 History of Past illness Narrative* Problem Noted Date Resolved Date Chronic back pain 01/30/2015 12/29/2021 Pain in joint, lower leg 01/01/2008 022 Abnormal weight gain 05/19/2007 01/15/2010 Lumbago 12/29/2021 documented as of this encounter (statuses as of 10/19/2022) [facility] History of Past illness Narrative* Problem Noted Date Resolved Date Chronic back pain 01/30/2015 12/29/2021 Pain in joint, lower leg 01/01/2008 022 Abnormal weight gain 05/19/2007 01/15/2010 Lumbago 12/29/2021 documented as of this encounter (statuses as of 10/21/2022) [facility] History of Past illness Narrative* Problem Noted Date Resolved Date Chronic back pain 01/30/2015 12/29/2021 Pain in joint, lower leg 01/01/2008 022 Abnormal weight gain 05/19/2007 01/15/2010 Lumbago 12/29/2021 documented as of this encounter (statuses as of 11/05/2022) [facility] History of Past illness Narrative* Problem Noted Date Resolved Date Abnormal weight gain 05/19/2007 01/15/2010 documented as of this encounter (statuses as of 09/02/2021) [facility] History of Past illness Narrative* Problem Noted Date Resolved Date Abnormal weight gain 05/19/2007 01/15/2010 documented as of this encounter (statuses as of 10/15/2021) [facility] History of Past illness Narrative* Problem Noted Date Resolved Date Abnormal weight gain 05/19/2007 01/15/2010 documented as of this encounter (statuses as of 11/28/2021) [facility] History of Past illness Narrative* Problem Noted Date Resolved Date Abnormal weight gain 05/19/2007 01/15/2010 documented as of this encounter (statuses as of 11/28/2021) [facility] No data available for this section [facility] Evaluation note* Diagnosis Degeneration of cervical intervertebral disc- Primary [facility] Diagnosis Degeneration of cervical intervertebral disc [facility]* Diagnosis Degeneration of cervical intervertebral disc [facility] Diagnosis Degeneration of cervical intervertebral disc [facility]* Diagnosis Degeneration of cervical intervertebral disc documented [facility] this [facility]* Diagnosis Fibromyalgia- Primary Mylagia and myositis, unspecified Degeneration of intervertebral disc of lumbar region Lumbar spondylosis Lumbosacral spondylosis without myelopathy Sacroiliitis (HCC) Sacroiliitis, not elsewhere classified Degeneration of intervertebral disc of cervical region Chronic knee pain, unspecified laterality documented in this encounter [facility] noteNo assessment information availableWOhioHealth Berger Hospital Work Phone: Evaluation note* Diagnosis Degeneration of cervical intervertebral disc [facility]* Diagnosis Fibromyalgia- Primary Mylagia and myositis, unspecified Degeneration of intervertebral disc of lumbar region Lumbar spondylosis Lumbosacral spondylosis without myelopathy Sacroiliitis (HCC) Sacroiliitis, not elsewhere classified Degeneration of intervertebral disc of cervical region Chronic knee pain, unspecified laterality documented in this encounter [facility]* Diagnosis Degeneration of cervical intervertebral disc [facility]* Diagnosis Degeneration of cervical intervertebral disc- Primary Fibromyalgia Mylagia and myositis, unspecified Degeneration of intervertebral disc of lumbar region Lumbar spondylosis Lumbosacral spondylosis without myelopathy Sacroiliitis (HCC) Sacroiliitis, not elsewhere classified Chronic knee pain, unspecified laterality documented in this encounter [facility]* Diagnosis Fibromyalgia- Primary Mylagia and myositis, unspecified Degeneration of intervertebral disc of lumbar region Lumbar spondylosis Lumbosacral spondylosis without myelopathy Degeneration of cervical intervertebral disc Sacroiliitis (HCC) Sacroiliitis, not elsewhere classified Chronic knee pain, unspecified laterality documented in this encounter [facility]* Diagnosis Degeneration of intervertebral disc of lumbar region documented in this encounter [facility]* Diagnosis Fibromyalgia Mylagia and myositis, unspecified documented [facility] this encounter [facility]* Diagnosis Degeneration of intervertebral disc of lumbar region [facility] Additional Instructions Hot shower, warm bath to the area. Ice. Motrin for pain and inflammation and Tylenol for pain. Your labs and CAT scan look good. I suspect you have a strained muscle between your rib cage and your back. This should progressively get better. Follow-up with your doctor if not.[facility] Work Phone: Progress note No data available for this section [facility] Reason for referral (narrative)No reason for referral information availableWOhioHealth Berger Hospital Work Phone: Summary Purpose Family History [...] No September 06, 2020 9:35am Power of Spa Host No September 06 9:35am Advance Directive Response Recorded Date/ Time Living Will No September 06, 2020 10:35am Power of Spa Host No September 06 10:35am Advance Directive Response Recorded Date/ Time Living Will No April 25, 2 023 3:44pm Power of Spa Host No April 25, 2023 3:44pm Advance Directive Response Recorded Date/ Time Living Will No April 25, 2 023 4:44pm Power of Spa Host No April 25, 2023 4:44pm Advance Directive Response Recorded Date/ Time Do you have a Healthcare Power of Spa Host? No October 28, 2024 7:17pm Chief Complaint [...] section and content) DATE CREATED AUTHOR [facility] [place] DATE CREATED AUTHOR AUTHOR'S ORGANIZ ATION 12/29/2021 [facility] ([place]) DATE CREATED AUTHOR AUTHOR'S ORGANIZ ATION 10/25/2022 [facility] DATE CREATED AUTHOR AUTHOR'S ORGANIZ ATION 11/06/2022 [facility] DATE CREATED AUTHOR AUTHOR'S ORGANIZ ATION 11/05/2024 [facility] Source Comments (unrecognize d section and content) In the event this informatio n is protected by the Federal Confidentiality of Alcohol and Drug Abuse Patient Records regulations: The Federal rules restrict any use of the information to criminally investigate or prosecute any alcohol or drug abuse patient.[facility] HospitalIn the event this information is protected by the Federal Confidentiality of Alcohol and Drug Abuse Patient Records regulations: The Federal rules restrict any use of the information to criminally investigate or prosecute any alcohol or drug abuse patient.[facility] HospitalIn the event this information is protected by the Federal Confidentiality of Alcohol and Drug Abuse Patient Records regulations: The Federal rules restrict any use of the information to criminally investigate or prosecute any alcohol or drug abuse patient.[facility] HospitalIn the event this information is protected by the Federal Confidentiality of Alcohol and Drug Abuse Patient Records regulations: The Federal rules restrict any use of the information to criminally investigate or prosecute any alcohol or drug abuse patient.[facility] HospitalIn the event this information is protected by the Federal Confidentiality of Alcohol and Drug Abuse Patient Records regulations: The Federal rules restrict any use of the information to criminally investigate or prosecute any alcohol or drug abuse patient.[facility] HospitalIn the event this information is protected by the Federal Confidentiality of Alcohol and Drug Abuse Patient Records regulations: The Federal rules restrict any use of the information to criminally investigate or prosecute any alcohol or drug abuse patient.[facility] HospitalIn the event this information is protected by the Federal Confidentiality of Alcohol and Drug Abuse Patient Records regulations: The Federal rules restrict any use of the information to criminally investigate or prosecute any alcohol or drug abuse patient.[facility] HospitalIn the event this information is protected by the Federal Confidentiality of Alcohol and Drug Abuse Patient Records regulations: The Federal rules restrict any use of the information to criminally investigate or prosecute any alcohol or drug abuse patient.[facility] HospitalIn the event this information is protected by the Federal Confidentiality of Alcohol and Drug Abuse Patient Records regulations: The Federal rules restrict any use of the information to criminally investigate or prosecute any alcohol or drug abuse patient.[facility] HospitalIn the event this information is protected by the Federal Confidentiality of Alcohol and Drug Abuse Patient Records regulations: The Federal rules restrict any use of the information to criminally investigate or prosecute any alcohol or drug abuse patient.[facility] HospitalIn the event this information is protected by the Federal Confidentiality of Alcohol and Drug Abuse Patient Records regulations: The Federal rules restrict any use of the information to criminally investigate or prosecute any alcohol or drug abuse patient.[facility] HospitalIn the event this information is protected by the Federal Confidentiality of Alcohol and Drug Abuse Patient Records regulations: The Federal rules restrict any use of the information to criminally investigate or prosecute any alcohol or drug abuse patient.[facility] HospitalIn the event this information is protected by the Federal Confidentiality of Alcohol and Drug Abuse Patient Records regulations: The Federal rules restrict any use of the information to criminally investigate or prosecute any alcohol or drug abuse patient.[facility] HospitalIn the event this information is protected by the Federal Confidentiality of Alcohol and Drug Abuse Patient Records regulations: The Federal rules restrict any use of the information to criminally investigate or prosecute any alcohol or drug abuse patient.[facility] HospitalIn the event this information is protected by the Federal Confidentiality of Alcohol and Drug Abuse Patient Records regulations: The Federal rules restrict any use of the information to criminally investigate or prosecute any alcohol or drug abuse patient.[facility] HospitalIn the event this information is protected by the Federal Confidentiality of Alcohol and Drug Abuse Patient Records regulations: The Federal rules restrict any use of the information to criminally investigate or prosecute any alcohol or drug abuse patient.[facility] HospitalIn the event this information is protected by the Federal Confidentiality of Alcohol and Drug Abuse Patient Records regulations: The Federal rules restrict any use of the information to criminally investigate or prosecute any alcohol or drug abuse patient.[facility] HospitalIn the event this information is protected by the Federal Confidentiality of Alcohol and Drug Abuse Patient Records regulations: The Federal rules restrict any use of the information to criminally investigate or prosecute any alcohol or drug abuse patient.[facility] HospitalIn the event this information is protected by the Federal Confidentiality of Alcohol and Drug Abuse Patient Records regulations: The Federal rules restrict any use of the information to criminally investigate or prosecute any alcohol or drug abuse patient.[facility] HospitalIn the event this information is protected by the Federal Confidentiality of Alcohol and Drug Abuse Patient Records regulations: The Federal rules restrict any use of the information to criminally investigate or prosecute any alcohol or drug abuse patient.[facility] Care Teams (unrecognized sec tion and content) 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 Specialty Start Date End Date Channing, Yobany Chi PCP - General Family Practice 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 Start Date End Date Channing, Yobany Chi PCP - General Family Practice 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 Start Date End Date Channing, Yobany Chi PCP - General Family Practice 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 Start Date End Date Channing, Yobany Chi PCP - General Family Practice 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 Start Date End Date Channing, Yobany Chi PCP - General Family Practice 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 Start Date End Date Channing, Yobany Chi PCP - General Family Medicine 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.] Provi marcelino, Attending Provider, Referring Provider Active 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 Specialty Start Date End Date Channing, Yobany Chi PCP - General Family Medicine 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 Start Date End Date Channing, Yobany Chi PCP - General Family Medicine 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 Start Date End Date Channing, Yobany Chi PCP - General Family Medicine 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 Start Date End Date Channing, Yobany Chi PCP - General Family Medicine 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 [facility]. provides no warranty or guarantee of the accuracy or completeness of information in this document.
[2024-11-18 07:56] VITALS: BP 148/66; PULSE 72; RESP 18; TEMP 36.6; O2SAT 99
== END 2024-11-18 07:57 | disposition home or self-care (01) ==
PROVIDERS: Emergency Provider Emergency Medicine; PCP Family Medicine; Visit Provider Emergency Medicine
DX: S92.341A Displaced fracture of fourth metatarsal bone, right foot, initial encounter for closed fracture (principal); S92.331A Displaced fracture of third metatarsal bone, right foot, initial encounter for closed fracture; S92.321A Displaced fracture of second metatarsal bone, right foot, initial encounter for closed fracture; R03.0 Elevated blood-pressure reading, without diagnosis of hypertension; F17.210 Nicotine dependence, cigarettes, uncomplicated; X58.XXXA Exposure to other specified factors, initial encounter
CPT/HCPCS: 29515; 73630; 99284

== ENCOUNTER 2024-12-09 12:12 | Emergency (ER) | payer MEDICARE, SELFPAY ==
[2024-12-09 12:13] VITALS: BP 152/100; PULSE 97; RESP 18; TEMP 36.8; O2SAT 99
--- NOTE | 2024-12-09 12:24 | ED.RN ---
Pt stated she had a fall but does not know how it happened. Denies hitting head. Pt confused. Family states that this is baseline.
--- NOTE | 2024-12-09 12:34 | EKG12_ITS ---
Test Reason : FALL Blood Pressure : */* mmHG Vent. Rate : 86 BPM Atrial Rate : 86 BPM P-R Int : 128 ms QRS Dur : 74 ms QT Int : 344 ms P-R-T Axes : 64 26 60 degrees QTcB Int : 411 ms Normal sinus rhythm Normal ECG Confirmed by SUMANTH PATEL, VANESSA ([id number]), index editor WALI CRABTREE ([id number]) on 12/11/2024 7:29:22 AM Referred By: Confirmed By: VANESSA JULIO MD
--- NOTE | 2024-12-09 12:35 | CT_ITS ---
PROCEDURE: BRAIN/HEAD WITHOUT CONTRAST 12/09/2024 REASON FOR EXAM: FALL, HEAD INJURY TECHNIQUE: BRAIN/HEAD WITHOUT CONTRAST Coronal and Sagittal reconstruction series were provided. One or more dose reduction techniques were used (e.g., Automated exposure control, adjustment of the mA and/or kV according to patient size, use of iterative reconstruction technique. RADIATION DOSE SUMMARY: Not listed. COMPARISON: 06/21/2023. FINDINGS: Moderate global parenchymal atrophy. Chronic microvascular ischemia. No evidence of acute hemorrhage or infarction. No extra-axial blood or fluid collections. The paranasal sinuses and mastoid air cells are clear. The calvarial vault and skull base are intact. CT/Brain/Head without Contrast IMPRESSION: No acute intracranial abnormality. Reading Location: [id number]
--- NOTE | 2024-12-09 12:35 | CT_ITS ---
PROCEDURE: SPINE CERVICAL WITHOUT CONTRAS 12/09/2024 REASON FOR EXAM: NECK PAIN, PAIN TECHNIQUE: SPINE CERVICAL WITHOUT CONTRAS Coronal and Sagittal reconstruction series were provided. One or more dose reduction techniques were used (e.g., Automated exposure control, adjustment of the mA and/or kV according to patient size, use of iterative reconstruction technique. RADIATION DOSE SUMMARY: CTDlvol: 410 mGy DLP: 779 mGycm COMPARISON: 04/25/2023. FINDINGS: No evidence of acute fracture or dislocation. Vertebral body heights are maintained. Straightening of the normal cervical lordosis. Moderate discogenic degenerative changes of the visualized spine. CT/Spine Cervical without Contras IMPRESSION: No acute cervical spine fracture. Spondylosis. Reading Location: [id number]
--- OUTSIDE RECORDS SUMMARY | 2024-12-09 12:35 | XMS RPT_ITS | CCD ---
Author Organization [facility] CliniSysc Care Team Providers Care Tenant Selector Name Role Phone Lisette Rees Unavailable Unavailable Lisette Rees Unavailable Unavailable CHANNING PATEL, DR SOLIS Primary Care Physician Channing, Yobany Chi Primary Care Provider CHANNING PATEL, DR SOLIS [...] Channing PATEL, Dr. Yobany Paz Attending Provider [phone] Antonino PATEL, Jaswinder Primary Care Provider Jaswinder Muñiz MD Attending Provider Jaswinder Muñiz MD Referring Provider Dr. Abdirizak Perla MD Emergency Provider [phone] Dr. Abdirizak Perla MD Attending Provider Dr. Benjamin Gilbert MD Emergency Provider [phone] Channing, Yobany Chi Referring Unavailable Channing, Yobany [...] Chalon Attending Unavailable Antonino, Chalon Referring Unavailable Gilbert, Benjamin Attending Unavailable Antonino, Chalon Primary Care Unavailable Abdirizak Perla Attending Unavailable Antonino, Chalon Primary Care Unavailable Channing, Yobany Chi Primary Care Unavailable Channing, Yobany Chi Attending Unavailable Channing, Yobany Chi Attending Unavailable Channing, Yobany Chi Primary Care Unavailable Allergies Allergy Classification Reported Allergen(s) Allergy Type Date of Onset Reaction(s) Facility (20 sources) gabapentin; Translations: [gabapentin] Drug Allergy 01-31-2013 Rash [facility] Work Phone: (4 sources) levoFLOXacin; Translations: [levofloxacin] Drug Allergy Tongue swelling [facility] Work Phone: Medications Current Medications Medication Drug Class(es) Dates Sig (Normalized) Sig (Original) acetaminophen 325 mg oral capsule (4 sources) Start: 08-24-2018 acetaminophen 325 mg oral capsule Dose : 650 mg =, Oral, q6h, PRN Pain, scale 1-3, # 20 cap(s), 0 Refill(s), Pharmacy: [facility]/pharmacy #[id number] Start Date: 08/24/18 Status: Ordered acetaminophen 325 mg / oxyCODONE hydrochloride 5 mg oral tablet (20 sources) Opioid Agonist Start: 07-05-2025 take 1 tablet by mouth every six hours as needed for pain Oxycodone-Acetamino phen 5-325 mg tablet Active 1 {tbl} PO EVERY 6 HOURS NEEDED as needed for pain 20 5 0 November 18, 2024 Fracture of fourth metatarsal bone of right foot Start: 12-24-2015 End: 05-04-2022 Oxycodone-Acetaminophen 1 TA BLET tablet Discontinued 1 {tbl} PO EVERY 8 HOURS NEEDED as needed for Pain December 24, 2015 12:00am August 26, 2020 2:04pm Start: 12-24-2015 End: 08-26-2020 take 1 tablet by mouth every eight hours as needed Oxycodone-Acetaminophen Discontinued 1 TABLET PO EVERY 8 HOURS NEEDED December 24, 2015 12:00am August 26, 2020 2:04pm Start: 07-19-2015 PERCOCET 5-325 MG TABS OXYCODONE-ACETAMINOPHEN [id number] Nelsy [place] Comment on above: Take 1 tablet by vivien th every 8 hours as needed. benztropine mesylate 1 mg oral tablet (20 sources) Anticholinergic, Antihistamine Start: take 1 tablet by mouth once daily [...] 72 hour Discontinued 1 NMA TD .Q48H 0 August 26, 2020 12:00am April 25, 2023 [...] 07-19-2015 FENTANYL 50 MC G/HR PT72 FENTANYL [id number] Nelsy Mathew Cruzito End: 07-19-2015 FENTANYL 75 MCG/HR PT72 ever y 72 hrs FENTANYL [id number] Nelsy [place] Comment on above: APPLY 1 [...] mcg/inh inhalation aerosol (1 source) Start: 10-03-19 20 take 1 puff(s) by inhalation twice daily Flovent HFA 110 mcg/inh inhalation aerosol See Instructions, 1 puff(s) Inhalation BID, # 1 EA, 0 Refill(s), Pharmacy: [facility], 152.4, cm, 10/03/19 13:39:00 EDT, Height, kg, 10/03/19 13:39:00 EDT, Dosing Weight Start Date: 10/03/19 Status: Ordered 120 actuat fluticasone propionate 0.11 mg/actuat metered dose inhaler (2 sources) Corticosteroid Start: 10-03-19 take 1 puff(s) by inhalation twice daily Flovent HFA 110 mcg/inh inhalation aerosol See Instructions, 1 puff(s) Inhalation BID, # 1 EA, 0 Refill(s), Pharmacy: [place] [id number] 152.4, cm, 10/03/19 13:39:00 EDT, Height, kg, 10/03/19 13:39:00 EDT, Dosing Weight Start Date: 10/03/19 Status: Ordered 24 hr galantamine hydrobromide 16 mg extended release oral capsule (15 sources) Start: 04-25-20 take 1 capsule by [...] Start: 02-06-2020 take 2 tablets by mo ut once daily Lamotrigine 200 mg tablet Active 400 mg PO DAILY August 26, 2020 12:00am Start: 02-06-2020 take 200 mg by mouth twice daily Lamotrigine Active 200 MG PO TWICE A DAY August 25, 2020 11:00pm Start: 07-19-2015 LAMOTRIGINE 20 0 MG TABS daily LAMOTRIGINE [id number] Nelsy [place] Start: 03-08-2015 End: 08-26-2020 Lamotrigine [...] TABS One tablet by mouth daily LAMOTRIGINE [id number] Nelsy [place] Comment on above: Take 50 mg by mouth once daily. Take 400 mg by mouth once daily. methocarbamol 500 mg oral tablet (16 sources) Muscle Relaxant Start: 3 End: take 1 tablet by mouth three times daily as needed methocarbamol (ROBAXIN) 500 mg tablet Indications: Fibromyalgia Take 1 tablet by mouth three times daily as needed. 90 tablet 3 10/27/2022 02/24/2023 Active Start: 10-19-2022 [facility] needed methocarbamol (ROBAXIN) [...] Comment on above: Take 1 tablet by [facility] every 8 hours as needed. [facility] daily as needed. [facility] NEEDED methylPREDNISolone 4 mg oral tablet (1 source) Corticosteroid Start: 2024 Methylprednisolone (Medrol (Tank)) 4 mg tablets,dose pack Active 0 PO .COMPLEX 21 0 November 18, 2024 12:00am for 6 days Multivitamin preparation (3 sources) Start: 2018 take 1 tablet by mouth once daily Multivitamin Dose = 1 tab(s), Oral, Daily, 0 Refill(s) Start Date: 07/13/18 Status: Ordered nystatin 100,000 units/mL oral suspension (1 source) Start: 2021 End: 2021 take 1 dose by mouth four times daily nystatin 100,000 units/mL oral suspension Dose : 500,000 unit(s) = 5 mL, Oral, QID, X 10 day(s), # 200 mL, 0 Refill(s), 08/11/21 22:01:00 EDT, Painful mouth Start Date: 08/01/21 Stop Date: 08/11/21 Status: Ordered omeprazole 40 mg oral tablet (20 sources) Proton Pump Inhibitor Start: 2018 take 1 dose by mouth once daily [...] release (DR/EC) Active 40 mg PO DAILY 30 September 16, 2020 12:00am Comment on above: pantoprazole 40 mg t ablet,delayed release (DR/EC) levothyroxine sodium 0.025 mg oral tablet (20 sources) l-Thyroxine Start: 07-13-2018 Synthroid 25 mcg (0.025 mg) oral tablet Dose : 25 mcg = 1 tab(s), Oral, qDayAC, 0 Refill(s) Start Date: 07/13/18 Status: Ordered Start: 07-19-2015 LEVOTHYROXINE SODIUM 50 MCG TABS LEVOTHYROXINE SODIUM [id number] Nelsy [place] Start: 03-08-2015 End: 04-25-2023 take [...] Drug Class(es) Dates Sig (Normalized) Sig (Original) Albuterol (4 sources) beta2-Adrenergic Agonist Start: 10-03-2019 End: 12-02-2019 take 2 puff(s) by inhalation every four hours as needed for wheezing Ventolin HFA MDI (90 mcg/inh) inhalation aerosol 2 puff(s), Inhalation, q4h, PRN as needed for wheezing, # 1 EA, 1 Refill(s), Pharmacy: [address], 152.4, cm, 10/03/19 13:39:00 EDT, Height, kg, [...] mg oral tablet (20 sources) Benzodiazepine Start: 08-26-2020 End: 04-25-2023 take 1 tablet [...] tablet by mouth three times daily CLONAZEPAM [id number] Nelsy East Comment on above: Take one(1) tablet d aily at bedtime as needed. cloNIDine hydrochloride 0.1 mg oral tablet (14 sources) Central alpha-2 Adrenergic Agonist Start: 3 take 1 tablet by mouth twice daily [...] by mouth daily 600mg DULOXETINE HCL CPEP [id number] Nelsy [place] End: 07-19-2015 take 1 tablet by mouth once daily CYMBALTA CPEP One tablet by mouth daily 300mg DULOXETINE HCL CPEP [id number] Nelsy [place] take 1 tablet by vivien th once daily CYMBALTA CPEP One tablet by mouth daily 300mg DULOXETINE HCL CPEP [id number] Poppy Salamanca take 1 tablet by vivien th once daily CYMBALTA CPEP One tablet by mouth daily 600mg DULOXETINE HCL CPEP [id number] Poppy Salamanca Comment on above: Take two tablet nathaly y. furosemide 40 mg oral tablet (19 sources) Loop Diuretic Start: 03-08-20 End: 08-27-19 21 take 1 tablet by mouth once daily Furosemide 40 MG tablet Discontinued 40 mg PO DAILY March 08, 2015 12:00am August 26, 2020 2:02pm gabapentin 300 mg oral capsule (4 sources) Anti-epileptic Agent End: 07-19-19 16 take 1 tablet by mouth twice daily GABAPENTIN 300 MG CAPS One tablet by mouth twice daily GABAPENTIN [id number] Nelsy [place] hydrOXYzine hydrochloride 25 mg oral tablet (17 sources) Antihistamine Start: 12-04-19 take 0.5-3 tablets by mouth once daily hydrOXYzine HCl (ATARAX) 25 mg tablet take 1/2 to 3 tablets by mouth daily if needed 0 12/03/2021 Active Comment on above: take 1/2 to 3 tablet s by mouth daily if needed ipratropium bromide 0.042 mg/actuat metered dose nasal spray (17 sources) Anticholinergic Start: 08-27-19 End: 04-25-20 Ipratropium Underwood 42 mcg (0.06 %) spray,non-aerosol Discontinued 1 NMA INTRANASAL DAILY August 26, 2020 12:00am April 25, 2023 4:49pm Start: 08-26-2020 End: 04-25-2023 Ipratropium Underwood Disconti nued 1 SPRAY INTRANASAL DAILY August 26, 2020 12:00am April 25, 2023 4:49pm levocetirizine dihydrochloride 5 mg oral tablet (17 sources) Histamine-1 Receptor Antagonist Start: 08-26-2020 End: 04-25-2023 take 1 tablet by mouth once daily Levocetirizine 5 mg tablet Discontinued 5 mg PO DAILY August 26, 2020 12:00am April 25, 2023 4:48pm LINACLOTIDE (2 sources) Guanylate Cyclase-C Agonist Start: 07-19-2015 LINZESS 145 MCG CAPS daily LINACLOTIDE [id number] Nelsy [place] meloxicam 7.5 mg oral tablet [...] hydrochloride 10 mg oral tablet (3 sources) Y-nqefeu-R-aspartat e Receptor Antagonist take 1 tablet by [...] hours. ondansetron 4 mg disintegrating oral tablet (12 sources) Serotonin-3 Receptor Antagonist Start: 023 End: 024 take 1 tablet by mouth every eight hours as needed for nausea Ondansetron 4 mg tablet,disintegrati ng Discontinued 4 mg PO EVERY 8 HOURS NEEDED as needed for Nausea 10 0 April 25, 2023 1:00am June 24, 2023 2:35pm potassium chloride 10 meq extended release oral capsule (19 sources) Start: 016 POTASSIUM CHLORIDE ER 10 MEQ CR-CAPS 1 twice daily POTASSIUM CHLORIDE [id number] Nelsy East Start: 03-08-2015 End: 08-26-2020 take 1 tablet by mouth twice daily Potassium Chloride 10 MEQ tablet Discontinued 10 meq PO TWICE A DAY March 08, 2015 12:00am August 26, 2020 2:36pm rOPINIRole 0.5 mg oral tablet (2 sources) Nonergot Dopamine Agonist Start: 07-19-2015 ROPINIROLE HCL 0.5 MG TABS every night ROPINIROLE HCL [id number] Nelsy [place] sertraline 50 mg oral tablet [...] mg tablet suvorexant 15 mg oral tablet (17 sources) Orexin Receptor Antagonist Start: 7 End: [...] 25, 2023 4:48pm take [address] [facility] every eight hours as needed tiZANidine HCl 4 mg capsule Take 4 mg by mouth three times daily as needed. 0 Active Comment on above: Take 4 mg by mouth t hree times daily as needed. topiramate 25 mg oral tablet (17 sources) Start: 01-05-2017 End: 08-26-2020 take 2 [...] TRAMADOL HCL 50 MG TABS TRAMADOL HCL [id number] Nelsy [place] varenicline 1 mg oral tablet (2 sources) Partial Cholinergic Nicotinic Agonist Start: 07-19-2015 CHANTIX 1 MG TABS 1 twice daily VARENICLINE TARTRATE [id number] Nelsy [place] Problems Active Problems Problem Classification Problem Date Documented Date Episodic/Chronic Abdominal pain (2 sources) Abdominal pain; Translations: [Unspecified abdominal pain] Onset: 10-20-2021 Episodic Alcohol-related disorders (20 sources) Alcohol dependence; Translations: [Alcohol dependence, uncomplicated] 01-15-2010 Chronic Anxiety disorders (18 sources) Anxiety disorder; Translations: [Anxiety disorder, unspecified] [...] Onset: 01-15-2010 01-15-2010 Chronic E Codes: Fall (12 sources) Fall from bed, initial encounter; Translations: [Fall from bed] 04-25-2023 Episodic Essential hypertension (1 source) Essential (primary) hypertension; Translations: [Essential (primary) hypertension] Onset: 04-24-2024 Chronic Fluid and electrolyte disorders (13 sources) Hypo-osmolality and or hyponatremia; Translations: [Hypo-osmolality and hyponatremia] Onset: 12-25-2021 Episodic Fracture of lower limb (3 sources) Closed fracture of second metatarsal bone; Translations: [Displaced fracture of second metatarsal bone, right foot, initial encounter for closed fracture] 11-18-2024 Episodic Headache; including migraine (20 sources) Headache; [...] Other circulatory disease (1 source) Elevated blood-pressure reading without diagnosis of hypertension; Translations: [Elevated blood-pressure reading, without diagnosis of hypertension] 11-18-2024 Episodic Other circulatory disease (1 source) Elevated blood-pressure [...] injuries and conditions due to external causes (12 sources) Closed injury of head; Translations: [Unspecified injury of head, initial encounter] 04-25-2023 Episodic Other injuries and conditions due to external causes (1 source) Unspecified injury of right foot, initial encounter; Translations: [Unspecified injury of right foot, initial encounter] Onset: 11-22-2024 Episodic Other lower respiratory disease (1 source) [...] Tobacco user 03-01-2019 Episodic Residual codes; unclassified (17 sources) History of colonoscopy; Translations: [Other specified postprocedural states] 08-26-2020 Episodic Comment on above: 02/10/2017 Spondylosis; intervertebral disc disorders; other back problems (20 sources) Degeneration of cervical intervertebral disc; Translations: [Other cervical disc degeneration, unspecified cervical region] Onset: 08-18-2017 Chronic Spondylosis; intervertebral disc disorders; other back problems (10 sources) Neck pain; Translations: [Low back pain] Onset: 02-03-2011 02-04-2011 Episodic Sprains and strains (14 sources) Strain of neck muscle; Translations: [Strain of muscle, fascia and tendon at neck level, initial encounter] 04-25-2023 Episodic Substance-related disorders (20 sources) Nondependent mixed drug abuse; Translations: [Other psychoactive substance abuse, uncomplicated] Onset: 01-15-2010 01-15-2010 Chronic Superficial injury; contusion (12 sources) Contusion of right shoulder; Translations: [Contusion [...] current use of drug therapy; Translations: [Other nursing home (current) drug therapy] Onset: 11-21-2018 11-26-2021 Episodic Other aftercare (1 source) Other nursing home (current) drug therapy; Translations: [Other oil heaterman (current) drug therapy] Onset: 11-26-2021 Episodic Other [...] Test Name Value Interpretation Reference Range Facility Emergency Department Summary on 11-18-2024 Emergency Department Summary [facility] Medical Records Department [address] [place] [address] Emergency Department Summary 11/18/24 MR#: [id number] Acct: [id number] Name: NAVIN AUGUST I Rep #: [id number] : 1960 64 From: Benjamin Gilbert MD PCP: Dr. Jaswinder Muñiz MD Status:REG ER Location: ED ADDENDUM by Dr. Benjamin Gilbert MD on 11/18/[address] Rodrigez suggested Medrol Dosepak since he is having so much pain. He did look at films. He agrees with treatment. 11/18/24 0710 Cosigner Signature (if applicable): cc: Dr. Jaswinder Muñiz MD * Signed HPI History of Present Illness Chief Complaint: Lower Extremity Injury Detail of Chief Complaint: Right foot trauma Informant: patient Onset/Context/Timing Onset: Today and Hours (Approximate 1 hour ago) Mechanism/Context: Blunt Injury Location of pain/injuries: Right foot Location: Foot mid Current Severity: Mild Maximum Severity: Severe Worsened by: Attempt to weight-bear Relieved by: Nothing Associated Symptoms Associated Symptoms: Positive for Inability to ambulate; Negative for Parasthesias, Weakness, Loss of function, Loss of consciousness or Amnesia Narrative Narrative: Patient is an elderly woman. She sustained injury to her right foot. She arrived by squad because she cannot put weight on it. This occurred approximate 1 hour ago. She has no allergies. She has history of osteoarthritis, anxiety depression and hyperlipidemia. Prior similar symptoms: No Recent Illness[facility] Medical History Vitamin D deficiency Osteoarthritis Chronic [...] DAILY 04/25/23 Unknown Hi story capsule,extended release methylprednisolone 4 mg tablets in See Rx Instructions PO .COMPLEX 11/18/24 Unknown Rx a dose pack (Medrol (Tank)) #21 tabs oxycodone-acetaminophen 5 mg-325 1 tab PO Q6H PRN PRN pain 5 days 0 11/18/24 Unknown Rx mg tablet #20 TABLETS Allergy/AdvReac Type Severity Reaction Status Date / Time No Known Allergies Allergy Verified 11/18/24 05:43 Family History Father Asthma Heart disease Osteoporosis Mother Arthritis Diabetes Thyroid disorder Brother CVA (cerebral vascular accident) Sister Breast cancer Surgical History Hx of colonoscopy Hx of exploratory laparotomy Social History household members: family housing: house Smoking Status: Current every day smoker tobacco type: cigarettes second hand exposure: No alcohol intake: never substance use type: does not use caffeine: Yes ROS ROS ED Musculoskeletal Musculoskeletal: Reports other Details: Foot pain, swelling and bruising ; Denies arthralgias or myalgias Integumentary Denies Abrasions or rash Neurologic Neurologic: Denies paresthesias Hematologic/Lymphatic Hematologic/Lymphatic: Denies easy bleeding or easy bruising EXAM Physical Exam Const Vital Signs: 11/18/24 05:44 Temperature 98.1 F Temperature Source Oral Pulse Rate 90 Respiratory Rate 18 Blood Pressure 147/84 H Blood Pressure Mean 105 Pulse Ox 95 Oxygen Delivery Method Room Air Positive well nourished and well developed General Appearance ED: well developed; Negative for NAD HEENT HEENT Narrative: Head is normocephalic. Ears are normal. Nares are patent. Teeth are normal. atraumatic Eyes PERRL and EOMs intact bilaterally Resp normal respiratory effort Cardio regular rhythm Rate: regular rate Extremity Negative for normal to inspection or full ROM Extremity Narrative: There is swelling and ecchymosis noted midfoot predominately lateral side. There is no pain ovation over the lateral or medial malleolus. She has pain ovation over the midfoot/3rd, 4th and 5th me tatarsal. PT pulses palpable. Neuro oriented x3 and CN's II-XII intact bilaterally [place] Coma Scale: document GCS findings Spontaneous Obeys Commands Oriented 15 Sensorium / Orientation: alert Psych mental status grossly normal and thought process normal Skin Skin Narrative: Bruising noted right foot PROC Procedures Lower Extremity Splints Lower Extremity Splint: Plaster and - (Short leg posterior splint) Splint Fabrication: Fabricated Location: Right MDM MDM MDM Narrative Medical decision (more content not included)... Normal [facility] Foot min 3 Viewson 5 Foot min 3 Views [facility] [address] [place], [place] [address] Foot min 3 Views MR#: [id number] Acct: [id number] Name: NAVIN AUGUST I Rep #: [id number] : 1960 F 64 From: Jose Khan MD PCP: Dr. Jaswinder Muñiz MD Status: REG ER Study: Foot min 3 Views Date of Exam: 11/18/24 Exam# [id number] Ordering Dr: Benjamin Gilbert MD PROCEDURE: FOOT MIN 3 VIEWS 11/18/2024 REASON FOR EXAM: INJURY/PAIN TECHNIQUE: FOOT MIN 3 VIEWS COMPARISON: None. FINDINGS: There is a comminuted fracture of the shaft of the 4th metatarsal. There is a nondisplaced transverse fracture of the shaft of the 3rd metatarsal. There is a possible fracture of the base of the shaft of the 2nd metatarsal. No other fractures are evident. There are no significant joint space abnormalities of the foot. There is soft tissue swelling over the dorsum of the foot. RAD/Foot min 3 Views IMPRESSION: Fractures of the 3rd and 4th metatarsal shafts, as described. Possible fracture of the 2nd metatarsal. Reading Location: [id number] CC: Dr. Jaswinder Muñiz MD; Dr. Benjamin Gilbert MD [employer] Sergeant: Signed Normal [facility] Abdomen/Pelvis without Conto n 10-28-2024 Abdomen/Pelvis without Cont [facility] [address] [place] [address] [id number] Abdomen/Pelvis without Cont MR#: [id number] Acct: [id number] Name: NAVIN AUGUST I Rep #: [id number] : 1960 F 64 From: Mariaelena Vazquez nd, MD PCP: Dr. Jaswinder Muñiz MD Status: REG ER Study: Abdomen/Pelvis without Cont Date of Exam: 10/15 09/08 Exam# [id number] Ordering Dr: Abdirizak Perla MD PROCEDURE: ABDOMEN/PELVIS [...] IMPRESSION: No acute abdominopelvic finding. Reading Location: [facility] CC: Dr. Jaswinder Muñiz MD; Dr. Abdirizak Perla MD [employer] Sergeant: Signed Normal [facility] Absolute lymphocyte countOrd ered By: ED PROVIDER on 10-28-2024 Lymphocytes Auto (Unsp spec) [#/Vol] 3.07 10*3/uL 0.83-4.51 [facility] Absolute neutrophil countOrd ered By: ED PROVIDER on 10-28-2024 Neutrophils (Bld) [#/Vol] 6.6 10*3/uL 2.0-7.7 [facility] Anion gap in Serum or Plasma Ordered By: Abdirizak Perla on 10-28-2024 Anion gap [Moles/Vol] 13 mmol/L 5-15 [facility] Automated lymphocyte count a s percentage of total leukocytesOrdered By: ED PROVIDER on 10-28-2024 Lymphocytes/100 WBC Auto (Unsp spec) 28.2 % 19-41 [facility] BUN/creatinine ratioOrdered By: Abdirizak Perla on 10-28-2024 Urea nitrogen/Creatinine [Mass ratio] 12.3 mg/mg 10-20 [facility] Basophil percentageOrdered B y: ED PROVIDER on 10-28-2024 Basophils/100 WBC (Bld) 0.9 % 0-1 [facility] Bilirubin Test strip Ql (U)O rdered By: ED PROVIDER on 10-28-2024 Bilirubin Ql (U) Negative Negative [facility] Bilirubin, totalOrdered By: Abdirizak Perla on 10-28-2024 Bilirubin [Mass/Vol] 0.20 mg/dL 0.00-1.30 [facility] CBC W/Diff, Automatedon 10-15 Absolute Lymph 3.07 X10 3/uL Normal 0.83-4.51 [facility] Comment on above: Performed By: #### L 500.4050, L100.0100 ####[facility] [address] [place], [address] Absolute Neut 6.6 X10 3/uL Normal 2.0-7.7 [facility] Comment on above: Performed By: #### L 500.4050, L100.0100 ####[facility] [address] [place], [address] Basophils/100 WBC (Bld) 0.9 % Normal 0-1 [facility] Comment on above: Performed By: #### L 500.4050, L100.0100 ####[facility] [address] [place], [address] Eosinophils/100 WBC (Bld) 2.3 % Normal 0-5 [facility] Comment on above: Performed By: #### L 500.4050, L100.0100 ####[facility] [address] [place], [address] Erythrocyte distribution width (RBC) [Ratio] 13.0 % Normal 11.6-14.6 [facility] Comment on above: Performed By: #### L 500.4050, L100.0100 ####[facility] [address] [place], [address] Hematocrit (Bld) [Volume fraction] 39.7 % Normal 37-47 [facility] Comment on above: Performed By: #### L 500.4050, L100.0100 ####[facility] [address] [place], [address] Hemoglobin (Bld) [Mass/Vol] 13.4 g/dL Normal 12.0-15.0 [facility] Comment on above: Performed By: #### L 500.4050, L100.0100 ####[facility] [address] [place], [address] IG% 0.400 Normal 0.0-0.9 [facility] Comment on above: Result Comment: IG% - Immature Granulocytes (promyelocytes, myelocytes and metamyelocytes) > 1% indicates that a LEFT SHIFT is Present. Performed By: #### L 500.4050, L100.0100 ####[facility] [address] [place], [address] Lymphocytes/100 WBC (Bld) 28.2 % Normal 19-41 [facility] Comment on above: Performed By: #### L 500.4050, L100.0100 ####[facility] [address] [place], [address] MCH (RBC) [Entitic mass] 32.1 pg High 27.0-32.0 [facility] Comment on above: Performed By: #### L 500.4050, L100.0100 ####[facility] [address] [place], [address] MCHC (RBC) [Mass/Vol] 33.8 g/dL Normal 32-36 [facility] Comment on above: Performed By: #### L 500.4050, L100.0100 ####[facility] [address] [place], [address] MCV (RBC) [Entitic vol] 95.2 fL Normal 81-99 [facility] Comment on above: Performed By: #### L 500.4050, L100.0100 ####[facility] [address] [place], [address] Monocytes/100 WBC (Bld) 7.1 % Normal 0-10 [facility] Comment on above: Performed By: #### L 500.4050, L100.0100 ####[facility] [address] [place], [address] Neutrophils/100 WBC (Bld) 61.1 % Normal 47-70 [facility] Comment on above: Performed By: #### L 500.4050, L100.0100 ####[facility] [address] [place], [address] Nucleated RBC (Bld) [#/Vol] 0 10*3/uL Normal 0-5 [facility] Comment on above: Performed By: #### L 500.4050, L100.0100 ####[facility] [address] [place], [address] Platelet mean volume (Bld) [Entitic vol] 8.6 fL Normal 6.2-12.0 [facility] Comment on above: Performed By: #### L 500.4050, L100.0100 ####[facility] [address] [place], [address] Platelets (Bld) [#/Vol] 479 10*3/uL High 150-450 [facility] Comment on above: Performed By: #### L 500.4050, L100.0100 ####[facility] [address] [place], [address] RBC (Bld) [#/Vol] 4.17 10*6/uL Low 4.2-5.4 [facility] Comment on above: Performed By: #### L 500.4050, L100.0100 ####[facility] [address] [place], [address] RDW SD 45.4 fl High 35.1-43.9 [facility] Comment on above: Performed By: #### L 500.4050, L100.0100 ####[facility] [address] [place], [address] WBC (Bld) [#/Vol] 10.9 10*3/uL Normal 4.4-11.0 [facility] Comment on above: Performed By: #### L 500.4050, L100.0100 ####[facility] [address] [place], [address] Carbon dioxide, total [Moles /volume] in Central venous bloodOrdered By: Abdirizak Perla on 10-28-2024 CO2 [Moles/Vol] 25.1 mmol/L 21.0-32.0 [facility] Chloride assayOrdered By: Hernandez Perla on 10-28-2024 Chloride [Moles/Vol] 97 mmol/L Low 98-108 [facility] Comprehensive Metabolic Prof ilon 10-28-2024 Albumin [Mass/Vol] 4.7 g/dL Normal 3.4-4.8 [facility] Comment on above: Performed By: #### L 500.4050, L100.0100 ####[facility] [address] [place], [address] Albumin/Globulin [Mass ratio] 1.7 {ratio} Normal 0.9-2.4 [facility] Comment on above: Performed By: #### L 500.4050, L100.0100 ####[facility] [address] [place], [address] ALK PHOS 141 U/L High 35-104 [facility] Comment on above: Performed By: #### L 500.4050, L100.0100 ####[facility] [address] [place], [address] ALT [Catalytic activity/Vol] 10 U/L Normal <=34 [facility] Comment on above: Performed By: #### L 500.4050, L100.0100 ####[facility] [address] [place], [address] AST [Catalytic activity/Vol] 17 U/L Normal <=31 [facility] Comment on above: Performed By: #### L 500.4050, L100.0100 ####[facility] [address] [place], [address] Bilirubin [Mass/Vol] 0.20 mg/dL Normal 0.00-1.30 [facility] Comment on above: Performed By: #### L 500.4050, L100.0100 ####[facility] [address] [place], [address] BUN/CRE 12.3 RATIO Normal 10-20 [facility] Comment on above: Performed By: #### L 500.4050, L100.0100 ####[facility] [address] [place], [address] Calcium [Mass/Vol] 9.6 mg/dL Normal 7.6-11.0 [facility] Comment on above: Performed By: #### L 500.4050, L100.0100 ####[facility] [address] [place], [address] Chloride [Moles/Vol] 97 mmol/L Low 98-108 [facility] Comment on above: Performed By: #### L 500.4050, L100.0100 ####[facility] [address] [place], [address] CO2 [Moles/Vol] 25.1 mmol/L Normal 21.0-32.0 [facility] Comment on above: Performed By: #### L 500.4050, L100.0100 ####[facility] [address] [place], [address] Creatinine [Mass/Vol] 1.06 mg/dL Normal 0.70-1.20 [facility] Comment on above: Performed By: #### L 500.4050, L100.0100 ####[facility] [address] [place], [address] ECRCL 46.75 ml/min Low 50-250 [facility] Comment on above: Performed By: #### L 500.4050, L100.0100 ####[facility] [address] [place], [address] GAP 13 Normal 5-15 [facility] Comment on above: Performed By: #### L 500.4050, L100.0100 ####[facility] [address] [place], [address] GFR/1.73 sq M.predicted among non-blacks MDRD (S/P/Bld) [Vol rate/Area] 58 mL/min/{1.73_m2} Low >60 [facility] Comment on above: Result Comment: mL/m in/1.73m2 CKD-EPI Creatinine Equation (2020) Performed By: #### L 500.4050, L100.0100 ####[facility] [address] [place], [address] Globulin (S) [Mass/Vol] 2.8 g/dL Normal 2.2-4.2 [facility] Comment on above: Performed By: #### L 500.4050, L100.0100 ####[facility] [address] [place], [address] Glucose [Mass/Vol] 125 mg/dL High 70-99 [facility] Comment on above: Performed By: #### L 500.4050, L100.0100 ####[facility] [address] [place], [address] Potassium [Moles/Vol] 3.8 mmol/L Normal 3.3-5.1 [facility] Comment on above: Performed By: #### L 500.4050, L100.0100 ####[facility] [address] [place], [address] Sodium [Moles/Vol] 135 mmol/L Normal 133-145 [facility] Comment on above: Performed By: #### L 500.4050, L100.0100 ####[facility] [address] [place], [address] T PROT 7.6 g/dL Normal 5.9-8.4 [facility] Comment on above: Performed By: #### L 500.4050, L100.0100 ####[facility] [address] [place], [address] Urea nitrogen [Mass/Vol] 13 mg/dL Normal 4-19 [facility] Comment on above: Performed By: #### L 500.4050, L100.0100 ####[facility] [address] [place], [address] Emergency Department Summary on 10-28-2024 Emergency Department Summary [facility] Medical Records Department [address] [place] [address] Emergency Department Summary 10/28/24 MR#: [id number] Acct: [id number] Name: NAVIN AUGUST I Rep #: [id number] : 1960 64 From: Abdirizak Perla MD [...] developed; Ne (more content not included)... Normal [facility] Eosinophil percentageOrdered By: ED PROVIDER on 10-28-2024 Eosinophils/100 WBC (Bld) 2.3 % 0-5 [facility] Erythrocyte distribution wid th ratioOrdered By: ED PROVIDER on 10-28-2024 Erythrocyte distribution width (RBC) [Ratio] 13.0 % 11.6-14.6 [facility] Erythrocyte distribution wid th standard deviationOrdered By: ED PROVIDER on 10-28-2024 Erythrocyte distribution width (RBC) [Ratio] 45.4 fl High 35.1-43.9 [facility] Glomerular filtration rate ( GFR) estimation/1.73 sq m using serum, plasma, or whole bOrdered By: Abdirizak Perla on 10-28-2024 GFR/1.73 sq M.predicted among non-blacks MDRD (S/P/Bld) [Vol rate/Area] 58 mL/min/{1.73_m2} Low >60 [facility] Comment on above: mL/min/1.73m2 CKD-EP I Creatinine Equation (2020) Hematocrit Auto (Bld) [Volum e fraction]Ordered By: ED PROVIDER on 10-28-2024 Hematocrit (Bld) [Volume fraction] 39.7 % 37-47 [facility] Hemoglobin measurementOrdere d By: ED PROVIDER on 10-28-2024 Hemoglobin (Bld) [Mass/Vol] 13.4 g/dL 12.0-15.0 [facility] Immature granulocytes/100 WB C Auto (Bld)Ordered By: ED PROVIDER on 10-28-2024 Immature granulocytes/100 WBC (Bld) 0.400 % 0.0-0.9 [facility] Comment on above: IG% - Immature Granu locytes (promyelocytes, myelocytes and metamyelocytes) > 1% indicates that a LEFT SHIFT is Present. Ketones Test strip Ql (U)Ord ered By: ED PROVIDER on 10-28-2024 Ketones Ql (U) Negative Negative [facility] Laboratory - Chemistry and C hemistry - challengeOrdered By: Adbirizak Perla on 10-28-2024 AST [Catalytic activity/Vol] 17 U/L <32 [facility] MCV (mean corpuscular volume ) determinationOrdered By: ED PROVIDER on 10-28-2024 MCV (RBC) [Entitic vol] 95.2 fL 81-99 [facility] Mean corpuscular hemoglobin (MCH) determinationOrdered By: ED PROVIDER on 10-28-2024 MCH (RBC) [Entitic mass] 32.1 pg High 27.0-32.0 [facility] Mean corpuscular hemoglobin concentration (MCHC) determinationOrdered By: ED PROVIDER on 10-28-2024 MCHC (RBC) [Mass/Vol] 33.8 g/dL 32-36 [facility] Mean platelet volume determi nationOrdered By: ED PROVIDER on 10-28-2024 Platelet mean volume (Bld) [Entitic vol] 8.6 fL 6.2-12.0 [facility] Microscopic analysis of urin e for red blood cells (RBC)Ordered By: ED PROVIDER on 10-28-2024 Microscopic analysis of urine for red blood cells (RBC) 0 SEEN /hpf 0-5 [facility] Monocyte percentageOrdered B y: ED PROVIDER on 10-28-2024 Monocytes/100 WBC (Bld) 7.1 % 0-10 [facility] Mucus LM Ql (Urine sed)Order ed By: ED PROVIDER on 10-28-2024 Mucus Ql (Urine sed) 0 SEEN /hpf [facility] Neutrophil percentageOrdered By: ED PROVIDER on 10-28-2024 Neutrophils/100 WBC (Bld) 61.1 % 47-70 [facility] Nitrite Test strip Ql (U)Ord ered By: ED PROVIDER on 10-28-2024 Nitrite Ql (U) Negative Negative [facility] Nucleated red blood cell per centageOrdered By: ED PROVIDER on 10-28-2024 Nucleated RBC/100 WBC (Bld) [Ratio] 0 % 0-5 [facility] Platelet countOrdered By: ED PROVIDER on 10-28-2024 Platelets (Bld) [#/Vol] 479 10*3/uL High 150-450 [facility] Potassium measurement (mass/ volume)Ordered By: Abdirizak Perla on 10-28-2024 Potassium (Unsp spec) [Mass/Vol] 3.8 mmol/L 3.3-5.1 [facility] Protein Test strip Ql (U)Ord ered By: ED PROVIDER on 10-28-2024 Protein Ql (U) Negative Negative [facility] RBC Auto (Bld) [#/Vol]Ordere d By: ED PROVIDER on 10-28-2024 RBC (Bld) [#/Vol] 4.17 10*6/uL Low 4.2-5.4 [facility] Serum creatinine measurement (mass/volume)Ordered By: Abdirizak Perla on 10-28-2024 Creatinine [Mass/Vol] 1.06 mg/dL 0.70-1.20 [facility] Serum globulin measurementOr dered By: Abdirizak Perla on 10-28-2024 Globulin (S) [Mass/Vol] 2.8 g/dL 2.2-4.2 [facility] Serum glucose measurement (m ass/volume)Ordered By: Abdirizak Perla on 10-28-2024 Glucose [Mass/Vol] 125 mg/dL High 70-99 [facility] Serum or plasma alanine huggins otransferase (ALT) measurementOrdered By: Abdirizak Perla on 10-28-2024 ALT [Catalytic activity/Vol] 10 U/L <35 [facility] Serum or plasma albumin chace urement (mass/volume)Ordered By: Abdirizak Perla on 10-28-2024 Albumin [Mass/Vol] 4.7 g/dL 3.4-4.8 [facility] Serum or plasma albumin/glob ulin mass ratioOrdered By: Abdirizak Perla on 10-28-2024 Albumin/Globulin [Mass ratio] 1.7 {ratio} 0.9-2.4 [facility] Serum or plasma alkaline venice sphatase measurementOrdered By: Abdirizak Perla on 10-28-2024 ALP [Catalytic activity/Vol] 141 U/L High 35-104 [facility] Serum or plasma calcium chace urement (mass/volume)Ordered By: Abdirizak Perla on 10-28-2024 Calcium [Mass/Vol] 9.6 mg/dL 7.6-11.0 [facility] Serum or plasma urea nitroge n measurement (mass/volume)Ordered By: Abdirizak Perla on 10-28-2024 Urea nitrogen [Mass/Vol] 13 mg/dL 4-19 [facility] Sodium levelOrdered By: Abdirizak Perla on 10-28-2024 Sodium [Moles/Vol] 135 mmol/L 133-145 [facility] Squamous epithelial cells de tection in urine sediment by light microscopyOrdered By: ED PROVIDER on 10-28-2024 Epithelial cells.squamous LM Ql (Urine sed) 0-5 SEEN /hpf 5-10 [facility] Total proteinOrdered By: Jeremi Perla on 10-28-2024 Protein [Mass/Vol] 7.6 g/dL 5.9-8.4 [facility] Urinalysis, Completeon 10-28 BACTERIA RARE Normal None Seen [facility] Comment on above: Order Comment: COLLE CTOR TO SPECIFY Performed By: #### L 400.0001 ####[facility] [address] [place], [place], [address] EPI,SQUAMOUS 0-5 SEEN Normal 5-10 [facility] Comment on above: Order Comment: ANDREW CTOR TO SPECIFY Performed By: #### L 400.0001 ####[facility] [address] [place], [address] Mucus Ql (Urine sed) 0 SEEN Normal [facility] Comment on above: Order Comment: ANDREW CTOR TO SPECIFY Performed By: #### L 400.0001 ####[facility] [address] [facility] [address] RBC 0 SEEN Normal 0-5 [facility] Comment on above: Order Comment: ANDREW CTOR TO SPECIFY Performed By: #### L 400.0001 ####[facility] [address] [place], [address] WBC 0 SEEN Normal 0-5 [facility] Comment on above: Order Comment: ANDREW CTOR TO SPECIFY Performed By: #### L 400.0001 ####[facility] [address] [place], [address] Urine clarityOrdered By: ED PROVIDER on 10-28-2024 Clarity (U) Clear Clear [facility] Urine color determinationOrd ered By: ED PROVIDER on 10-28-2024 Color (U) Straw Yellow [facility] Urine glucose detectionOrder ed By: ED PROVIDER on 10-28-2024 Glucose Ql (U) Normal mg/dl Normal [facility] Urine leukocyte esterase det ection by dipstickOrdered By: ED PROVIDER on 10-28-2024 Leukocyte esterase Test strip Ql (U) Negative Negative [facility] Urine pHOrdered By: ED PROVI MARCELINO on 10-28-2024 pH (U) 6.5 [pH] 5.0 - 8.0 [facility] Urine sediment bacteria coun t by microscopy (number/high power field)Ordered By: ED PROVIDER on 10-28-2024 Bacteria LM.HPF (Urine sed) [#/Area] RARE /hpf None Seen [facility] Urine specific gravity measu rementOrdered By: ED PROVIDER on 10-28-2024 Specific gravity (U) [Rel density] 1.010 1.002-1.03 0 [facility] Urine urobilinogen measureme ntOrdered By: ED PROVIDER on 10-28-2024 Urobilinogen Ql (U) Normal mg/dl Normal [facility] White blood cell (WBC) count Ordered By: ED PROVIDER on 10-28-2024 WBC (Bld) [#/Vol] 10.9 10*3/uL 4.4-11.0 [facility] White blood cell countOrdere d By: ED PROVIDER on 10-28-2024 White blood cell count 0 SEEN /hpf 0-5 [facility] Low Dose CT Lung Screeningon 09-29-[address] Lung Screening [facility] [address] [place] [address] Lung Screening MR#: [id number] Acct: [id number] Name: NAVIN AUGUST I Rep #: [id number] : 1960 F 64 From: Jak Mcknight MD PCP: Dr. Jaswinder Muñiz MD Status: [facility] CLI Study: Low Dose CT Lung Screening Date of Exam: 09/29 Exam# [id number] Ordering Dr: Jaswinder Muñiz MD EXAM: CT [...] in 12 months is recommended. Reading Location: [id number] CC: Dr. Jaswinder Muñiz MD [employer] Sergeant: Signed Normal [facility] Absolute lymphocyte countOrd ered By: Jaswinder Muñiz on 09-04-2024 Lymphocytes Auto (Unsp spec) [#/Vol] 1.94 10*3/uL 0.83-4.51 [facility] Absolute neutrophil countOrd ered By: Jaswinder Muñiz on 09-04-2024 Neutrophils (Bld) [#/Vol] 4.3 10*3/uL 2.0-7.7 [facility] Anion gap in Serum or Plasma Ordered By: Jaswinder Muñiz on 09-04-2024 Anion gap [Moles/Vol] 12 mmol/L 5-15 [facility] Automated lymphocyte count a s percentage of total leukocytesOrdered By: Jaswinder Muñiz on 09-04-2024 Lymphocytes/100 WBC Auto (Unsp spec) 27.6 % 19- [facility] BUN/creatinine ratioOrdered By: [facility] Mu[facility] on 09-04-2024 Urea nitrogen/Creatinine [Mass ratio] 10.4 mg/mg 10- [facility] Basophil percentageOrdered B y: Jaswinder Muñiz on 09-04-2024 Basophils/100 WBC (Bld) 1.1 % High 0-1 [facility] Bilirubin, totalOrdered By: Jaswinder Muñiz on 09-04-2024 Bilirubin [Mass/Vol] mg/dL 0.00-1.30 [facility] CBC W/Diff, Automatedon 08-16 Absolute Lymph 1.94 X10 3/uL Normal 0.83-4.51 [facility] Comment on above: Order Comment: Order Date: 09/04/24 Order Info: 0184-1 - CBCD Performed By: #### L 500.4050, L100.0100, L501.9520, L500.4100 #### [facility] [address] [facility] [place], [place], [id number] Absolute Neut 4.3 X10 3/uL Normal 2.0-7.7 [facility] Comment on above: Order Comment: Order Date: 09/04/24 Order Info: 0184-1 - CBCD Performed By: #### L 500.4050, L100.0100, L501.9520, L500.4100 #### [facility] [address] [place], [address] Basophils/100 WBC (Bld) 1.1 % High 0-1 [facility] Comment on above: Order Comment: Order Date: 09/04/24 Order Info: 0184-1 - CBCD Performed By: #### L 500.4050, L100.0100, L501.9520, L500.4100 #### [facility] [address] [place], [address] Eosinophils/100 WBC (Bld) 2.3 % Normal 0-5 [facility] Comment on above: Order Comment: Order Date: 09/04/24 Order Info: 0184-1 - CBCD Performed By: #### L 500.4050, L100.0100, L501.9520, L500.4100 #### [facility] [address] [place], [address] Erythrocyte distribution width (RBC) [Ratio] 12.6 % Normal 11.6-14.6 [facility] Comment on above: Order Comment: Order Date: 09/04/24 Order Info: 0184-1 - CBCD Performed By: #### L 500.4050, L100.0100, L501.9520, L500.4100 #### [facility] [address] [place], [address] Hematocrit (Bld) [Volume fraction] 38.4 % Normal 37-47 [facility] Comment on above: Order Comment: Order Date: 09/04/24 Order Info: 0184-1 - CBCD Performed By: #### L 500.4050, L100.0100, L501.9520, L500.4100 #### [facility] [address] [place], [address] Hemoglobin (Bld) [Mass/Vol] 13.2 g/dL Normal 12.0-15.0 [facility] Comment on above: Order Comment: Order Date: 09/04/24 Order Info: 0184-1 - CBCD Performed By: #### L 500.4050, L100.0100, L501.9520, L500.4100 #### [facility] [address] [place], [address] IG% 0.300 Normal 0.0-0.9 [facility] Comment on above: Order Comment: Order Date: 09/04/24 Order Info: 0184-1 - CBCD Result Comment: IG% - Immature Granulocytes (promyelocytes, myelocytes and metamyelocytes) > 1% indicates that a LEFT SHIFT is Present. Performed By: #### L 500.4050, L100.0100, L501.9520, L500.4100 #### [facility] [address] [place], [address] Lymphocytes/100 WBC (Bld) 27.6 % Normal 19-41 [facility] Comment on above: Order Comment: Order Date: 09/04/24 Order Info: 0184-1 - CBCD Performed By: #### L 500.4050, L100.0100, L501.9520, L500.4100 #### [facility] [address] [place], [address] MCH (RBC) [Entitic mass] 32.9 pg High 27.0-32.0 [facility] Comment on above: Order Comment: Order Date: 09/04/24 Order Info: 0184-1 - CBCD Performed By: #### L 500.4050, L100.0100, L501.9520, L500.4100 #### [facility] [address] [place], [address] MCHC (RBC) [Mass/Vol] 34.4 g/dL Normal 32-36 [facility] Comment on above: Order Comment: Order Date: 09/04/24 Order Info: 0184-1 - CBCD Performed By: #### L 500.4050, L100.0100, L501.9520, L500.4100 #### [facility] [address] [place], [address] MCV (RBC) [Entitic vol] 95.8 fL Normal 81-99 [facility] Comment on above: Order Comment: Order Date: 09/04/24 Order Info: 0184-1 - CBCD Performed By: #### L 500.4050, L100.0100, L501.9520, L500.4100 #### [facility] [address] [place], [address] Monocytes/100 WBC (Bld) 7.3 % Normal 0-10 [facility] Comment on above: Order Comment: Order Date: 09/04/24 Order Info: 0184-1 - CBCD Performed By: #### L 500.4050, L100.0100, L501.9520, L500.4100 #### [facility] [address] [place], [address] Neutrophils/100 WBC (Bld) 61.4 % Normal 47-70 [facility] Comment on above: Order Comment: Order Date: 09/04/24 Order Info: 0184-1 - CBCD Performed By: #### L 500.4050, L100.0100, L501.9520, L500.4100 #### [facility] [address] [place], [address] Nucleated RBC (Bld) [#/Vol] 0 10*3/uL Normal 0-5 [facility] Comment on above: Order Comment: Order Date: 09/04/24 Order Info: 0184-1 - CBCD Performed By: #### L 500.4050, L100.0100, L501.9520, L500.4100 #### [facility] [address] [place], [address] Platelet mean volume (Bld) [Entitic vol] 9.2 fL Normal 6.2-12.0 [facility] Comment on above: Order Comment: Order Date: 09/04/24 Order Info: 0184-1 - CBCD Performed By: #### L 500.4050, L100.0100, L501.9520, L500.4100 #### [facility] [address] [place], [address] Platelets (Bld) [#/Vol] 510 10*3/uL High 150-450 [facility] Comment on above: Order Comment: Order Date: 09/04/24 Order Info: 0184-1 - CBCD Performed By: #### L 500.4050, L100.0100, L501.9520, L500.4100 #### [facility] [address] [place], [address] RBC (Bld) [#/Vol] 4.01 10*6/uL Low 4.2-5.4 [facility] Comment on above: Order Comment: Order Date: 09/04/24 Order Info: 0184-1 - CBCD Performed By: #### L 500.4050, L100.0100, L501.9520, L500.4100 #### [facility] [address] [place], [address] RDW SD 44.5 fl High 35.1-43.9 [facility] Comment on above: Order Comment: Order Date: 09/04/24 Order Info: 0184-1 - CBCD Performed By: #### L 500.4050, L100.0100, L501.9520, L500.4100 #### [facility] [address] [place], [address] WBC (Bld) [#/Vol] 7.0 10*3/uL Normal 4.4-11.0 [facility] Comment on above: Order Comment: Order Date: 09/04/24 Order Info: 0184-1 - CBCD Performed By: #### L 500.4050, L100.0100, L501.9520, L500.4100 #### [facility] [address] [place], [address] Calculated very low density lipoprotein (VLDL) cholesterol measurementOrdered By: Jaswinder Muñiz on 09-04-2024 Calculated very low density lipoprotein (VLDL) cholesterol measurement 26 mg/dL 5-40 [facility] Carbon dioxide, total [Moles /volume] in Central venous bloodOrdered By: Jaswinder Muñiz on 09-04-2024 CO2 [Moles/Vol] 24.0 mmol/L 21.0-32.0 [facility] Chloride assayOrdered By: Stacie Muñiz on 09-04-2024 Chloride [Moles/Vol] 100 mmol/L 98-108 [facility] Comprehensive Metabolic Prof ilon 09-04-2024 Albumin [Mass/Vol] 4.5 g/dL Normal 3.4-4.8 [facility] Comment on above: Order Comment: Order Date: 09/04/24 Order Info: [id number] - CMP Order Info: [id number] - LIPID Order Info: [id number] - TSH Performed By: #### L 500.4050, L100.0100, L501.9520, L500.4100 #### [facility] [address] [place], [place], [address] Albumin/Globulin [Mass ratio] 1.7 {ratio} Normal 0.9-2.4 [facility] Comment on above: Order Comment: Order Date: 09/04/24 Order Info: [id number] - CMP Order Info: [id number] - LIPID Order Info: [id number] - TSH Performed By: #### L 500.4050, L100.0100, L501.9520, L500.4100 #### [facility] [address] [place], [address] ALK PHOS 136 U/L High 35-104 [facility] [facility] Comment on above: Order Comment: Order Date: 09/04/24 Order Info: [id number] - CMP Order Info: [id number] - LIPID Order Info: [id number] - TSH Performed By: #### L 500.4050, L100.0100, L501.9520, L500.4100 #### [facility] [address] [place], [address] ALT [Catalytic activity/Vol] 17 U/L Normal <=34 [facility] Comment on above: Order Comment: Order Date: 09/04/24 Order Info: 785- - CMP Order Info: - LIPID Order Info: [id number] - TSH Performed By: #### L 500.4050, L100.0100, L501.9520, L500.4100 #### [facility] [address] [place], [address] AST [Catalytic activity/Vol] 23 U/L Normal <=31 [facility] Comment on above: Order Comment: Order Date: 09/04/24 Order Info: [id number] - CMP Order Info: - LIPID Order Info: [id number] - TSH Performed By: #### L 500.4050, L100.0100, L501.9520, L500.4100 #### [facility] [address] [place], [address] BUN/CRE 10.4 RATIO Normal 10-20 [facility] Comment on above: Order Comment: Order Date: 09/04/24 Order Info: [id number] - CMP Order Info: - LIPID Order Info: [id number] - TSH Performed By: #### L 500.4050, L100.0100, L501.9520, L500.4100 #### [facility] [address] [place], [address] Calcium [Mass/Vol] 9.5 mg/dL Normal 7.6-11.0 [facility] Comment on above: Order Comment: Order Date: 09/04/24 Order Info: [id number] - CMP Order Info: - LIPID Order Info: 3 - TSH Performed By: #### L 500.4050, L100.0100, L501.9520, L500.4100 #### [facility] [address] [place], [address] Chloride [Moles/Vol] 100 mmol/L Normal 98-108 [facility] Comment on above: Order Comment: Order Date: 09/04/24 Order Info: 07 - CMP Order Info: - LIPID Order Info: [id number] - TSH Performed By: #### L 500.4050, L100.0100, L501.9520, L500.4100 #### [facility] [address] [place], [address] CO2 [Moles/Vol] 24.0 mmol/L Normal 21.0-32.0 [facility] Comment on above: Order Comment: Order Date: 09/04/24 Order Info: 07 - CMP Order Info: - LIPID Order Info: [id number] - TSH Performed By: #### L 500.4050, L100.0100, L501.9520, L500.4100 #### [facility] [address] [place], [address] Creatinine [Mass/Vol] 0.97 mg/dL Normal 0.70-1.20 [facility] Comment on above: Order Comment: Order Date: 09/04/24 Order Info: [id number]- - CMP Order Info: [id number] - LIPID Order Info: [id number] - TSH Performed By: #### L 500.4050, L100.0100, L501.9520, L500.4100 #### [facility] [address] [place], [address] GAP 12 Normal 5-15 [facility] Comment on above: Order Comment: Order Date: 09/04/24 Order Info: 07- - CMP Order Info: - LIPID Order Info: [id number] - TSH Performed By: #### L 500.4050, L100.0100, L501.9520, L500.4100 #### [facility] [address] [place], [address] GFR/1.73 sq M.predicted among non-blacks MDRD (S/P/Bld) [Vol rate/Area] 65 mL/min/{1.73_m2} Normal >60 [facility] Comment on above: Order Comment: Order Date: 09/04/24 Order Info: 785- - CMP Order Info: - LIPID Order Info: [id number] - TSH Result Comment: mL/m in/1.73m2 CKD-EPI Creatinine Equation (2020) Performed By: #### L 500.4050, L100.0100, L501.9520, L500.4100 #### [facility] [address] [place], [address] Globulin (S) [Mass/Vol] 2.7 g/dL Normal 2.2-4.2 [facility] Comment on above: Order Comment: Order Date: 09/04/24 Order Info: 0786 - CMP Order Info: - LIPID Order Info: [id number] - TSH Performed By: #### L 500.4050, L100.0100, L501.9520, L500.4100 #### [facility] [address] [place], [address] Glucose [Mass/Vol] 114 mg/dL High 70-99 [facility] Comment on above: Order Comment: Order Date: 09/04/24 Order Info: 07 - CMP Order Info: - LIPID Order Info: [id number] - TSH Performed By: #### L 500.4050, L100.0100, L501.9520, L500.4100 #### [facility] [address] [place], [address] Potassium [Moles/Vol] 3.9 mmol/L Normal 3.3-5.1 [facility] Comment on above: Order Comment: Order Date: 09/04/24 Order Info: [id number] - CMP Order Info: [id number] - LIPID Order Info: 3 - TSH Performed By: #### L 500.4050, L100.0100, L501.9520, L500.4100 #### [facility] [address] [place], [address] Sodium [Moles/Vol] 136 mmol/L Normal 133-145 [facility] Comment on above: Order Comment: Order Date: 09/04/24 Order Info: [id number] - CMP Order Info: - LIPID Order Info: 3 - TSH Performed By: #### L 500.4050, L100.0100, L501.9520, L500.4100 #### [facility] [address] [place], [address] T BILI < 0.15 Normal 0.00-1.30 [facility] Comment on above: Order Comment: Order Date: 09/04/24 Order Info: 07 - CMP Order Info: [id number] - LIPID Order Info: 3 - TSH Performed By: #### L 500.4050, L100.0100, L501.9520, L500.4100 #### [facility] [address] [place], [address] T PROT 7.2 g/dL Normal 5.9-8.4 [facility] Comment on above: Order Comment: Order Date: 09/04/24 Order Info: 07 - CMP Order Info: - LIPID Order Info: 3 - TSH Performed By: #### L 500.4050, L100.0100, L501.9520, L500.4100 #### [facility] [address] [place], [place], [address] Urea nitrogen [Mass/Vol] 10 mg/dL Normal 4-19 [facility] Comment on above: Order Comment: Order Date: 09/04/24 Order Info: [id number] - CMP Order Info: [id number] - LIPID Order Info: [id number] - TSH Performed By: #### L 500.4050, L100.0100, L501.9520, L500.4100 #### [facility] [address] [place], [address] Eosinophil percentageOrdered By: Jaswinder Muñiz on 09-04-2024 Eosinophils/100 WBC (Bld) 2.3 % 0-5 [facility] Erythrocyte distribution wid th ratioOrdered By: Jaswinder Muñiz on 09-04-2024 Erythrocyte distribution width (RBC) [Ratio] 12.6 % 11.6-14.6 [facility] Erythrocyte distribution wid th standard deviationOrdered By: Jaswinder Muñiz on 09-04-2024 Erythrocyte distribution width (RBC) [Ratio] 44.5 fl High 35.1-43.9 [facility] Glomerular filtration rate ( GFR) estimation/1.73 sq m using serum, plasma, or whole bOrdered By: Jaswinder Muñiz on 09-04-2024 GFR/1.73 sq M.predicted among non-blacks MDRD (S/P/Bld) [Vol rate/Area] 65 mL/min/{1.73_m2} >60 [facility] Comment on above: mL/min/1.73m2 CKD-EP I Creatinine Equation (2020) Hematocrit Auto (Bld) [Volum e fraction]Ordered By: Jaswinder Muñiz on 09-04-2024 Hematocrit (Bld) [Volume fraction] 38.4 % 37-47 [facility] Hemoglobin measurementOrdere d By: Jaswinder Muñiz on 09-04-2024 Hemoglobin (Bld) [Mass/Vol] 13.2 g/dL 12.0-15.0 [facility] Immature granulocytes/100 WB C Auto (Bld)Ordered By: Jaswinder Muñiz on 09-04-2024 Immature granulocytes/100 WBC (Bld) 0.300 % 0.0-0.9 [facility] Comment on above: IG% - Immature Granu locytes (promyelocytes, myelocytes and metamyelocytes) > 1% indicates that a LEFT SHIFT is Present. LDL calc ser/plasOrdered By: Jaswinder Muñiz on 09-04-2024 Cholesterol in LDL [Mass/Vol] 168 mg/dL [facility] Comment on above: Xmldgqrhjb=183-652 m g/dL & Higher Gldw=748 mg/dL or greater Laboratory - Chemistry and C hemistry - challengeOrdered By: Jaswinder Muñiz on 09-04-2024 AST [Catalytic activity/Vol] 23 U/L <32 [facility] Lipid Profileon 09-04-2024 CHOL:HDL 5.15 Normal [facility] Comment on above: Order Comment: Order Date: 09/04/24 Order Info: [id number] - CMP Order Info: [id number] - LIPID Order Info: [id number] - TSH Performed By: #### L 500.4050, L100.0100, L501.9520, L500.4100 #### [facility] [address] [place], [address] Cholesterol [Mass/Vol] 241 mg/dL High <=200 [facility] Comment on above: Order Comment: Order Date: 09/04/24 Order Info: [id number] - CMP Order Info: [id number] - LIPID Order Info: [id number] - TSH Result Comment: Chol esterol level, Desirable <200 mg/dL Borderline high cholesterol 200-239 mg/dL High cholesterol >=240 mg/dL Recommendations of the NCEP Adult Treatment Panel for the following risk-cutoff thresholds for the [place] population. Performed By: #### L 500.4050, L100.0100, L501.9520, L500.4100 #### [facility] [address] [place], [address] Cholesterol in HDL [Mass/Vol] 47 mg/dL Normal [facility] Comment on above: Order Comment: Order Date: 09/04/24 Order Info: [id number] - CMP Order Info: [id number] - LIPID Order Info: [id number] - TSH Result Comment: Cassandra onal Cholesterol Education Program (NCEP) guidelines: <40 mg/dL: Low HDL-cholesterol (major risk factor for CHD) >= 60 mg/dL: High HDL-cholesterol (negative risk factor for CHD) HDL-cholesterol is affected by a number of factors, e.g. smoking, exercise, hormones, sex and age. Performed By: #### L 500.4050, L100.0100, L501.9520, L500.4100 #### [facility] [address] [place], [address] Cholesterol in LDL [Mass/Vol] 168 mg/dL Normal [facility] Comment on above: Order Comment: Order Date: 09/04/24 Order Info: [id number] - CMP Order Info: [id number] - LIPID Order Info: [id number] - TSH Result Comment: Bord eapzai=507-343 mg/dL Higher Hfqp=083 mg/dL or greater Performed By: #### L 500.4050, L100.0100, L501.9520, L500.4100 #### [facility] [address] [place], [address] Cholesterol in VLDL [Mass/Vol] 26 mg/dL Normal 5-40 [facility] Comment on above: Order Comment: Order Date: 09/04/24 Order Info: [id number] - CMP Order Info: [id number] - LIPID Order Info: [id number] - TSH Performed By: #### L 500.4050, L100.0100, L501.9520, L500.4100 #### [facility] [address] [place], [address] Triglyceride [Mass/Vol] 131 mg/dL Normal [facility] Comment on above: Order Comment: Order Date: 09/04/24 Order Info: [id number] - CMP Order Info: [id number] - LIPID Order Info: [id number] - TSH Result Comment: The drugs N-Acetylcysteine and Metamizole may falsely depress this assay. Normal range: <150 mg/dL Borderline High: 150-199 mg/dL High: 200-499 mg/dL Very High: >500 mg/dL Performed By: #### L 500.4050, L100.0100, L501.9529, L500.4100 #### [facility] [address] [place], [address] MCV (mean corpuscular volume ) determinationOrdered By: Jaswinder Muñiz on 09-04-2024 MCV (RBC) [Entitic vol] 95.8 fL 81-99 [facility] Mean corpuscular hemoglobin (MCH) determinationOrdered By: Jaswinder Muñiz on 09-04-2024 MCH (RBC) [Entitic mass] 32.9 pg High 27.0-32.0 [facility] Mean corpuscular hemoglobin concentration (MCHC) determinationOrdered By: Jaswinder Muñiz on 09-04-2024 MCHC (RBC) [Mass/Vol] 34.4 g/dL 32-36 [facility] Mean platelet volume determi nationOrdered By: Jaswinder Muñiz on 09-04-2024 Platelet mean volume (Bld) [Entitic vol] 9.2 fL 6.2-12.0 [facility] Monocyte percentageOrdered B y: Jaswinder uMñiz on 09-04-2024 Monocytes/100 WBC (Bld) 7.3 % 0-10 [facility] Neutrophil percentageOrdered By: Jaswinder Muñiz on 09-04-2024 Neutrophils/100 WBC (Bld) 61.4 % 47-70 [facility] Nucleated red blood cell per centageOrdered By: Jaswinder Muñiz on 09-04-2024 Nucleated RBC/100 WBC (Bld) [Ratio] 0 % 0-5 [facility] Platelet countOrdered By: Stacie Muñiz on 09-04-2024 Platelets (Bld) [#/Vol] 510 10*3/uL High 150-450 [facility] Potassium measurement (mass/ volume)Ordered By: Jaswinder Muñiz on 09-04-2024 Potassium (Unsp spec) [Mass/Vol] 3.9 mmol/L 3.3-5.1 [facility] RBC Auto (Bld) [#/Vol]Ordere d By: Jaswinder Muñiz on 09-04-2024 RBC (Bld) [#/Vol] 4.01 10*6/uL Low 4.2-5.4 [facility] Screening total cholesterol/ high density lipoprotein (HDL) cholesterol ratioOrdered By: Jaswinder Muñiz on 09-04-2024 Cholesterol.total/Rhonda sterol in HDL [Mass ratio] 5.15 {ratio} [facility] Serum creatinine measurement (mass/volume)Ordered By: Jaswinder Muñiz on 09-04-2024 Creatinine [Mass/Vol] 0.97 mg/dL 0.70-1.20 [facility] Serum globulin measurementOr dered By: Jaswinder Muñiz on 09-04-2024 Globulin (S) [Mass/Vol] 2.7 g/dL 2.2-4.2 [facility] Serum glucose measurement (m ass/volume)Ordered By: Jaswinder Muñiz on 09-04-2024 Glucose [Mass/Vol] 114 mg/dL High 70-99 [facility] Serum or plasma alanine huggins otransferase (ALT) measurementOrdered By: Jaswinder Muñiz on 09-04-2024 ALT [Catalytic activity/Vol] 17 U/L <35 [facility] Serum or plasma albumin chace urement (mass/volume)Ordered By: Jaswinder Muñiz on 09-04-2024 Albumin [Mass/Vol] 4.5 g/dL 3.4-4.8 [facility] Serum or plasma albumin/glob ulin mass ratioOrdered By: Jaswnider Muñiz on 09-04-2024 Albumin/Globulin [Mass ratio] 1.7 {ratio} 0.9-2.4 [facility] Serum or plasma alkaline venice sphatase measurementOrdered By: Jaswinder Muñiz on 09-04-2024 ALP [Catalytic activity/Vol] 136 U/L High 35-104 [facility] Serum or plasma calcium chace urement (mass/volume)Ordered By: Jaswinder Muñiz on 09-04-2024 Calcium [Mass/Vol] 9.5 mg/dL 7.6-11.0 [facility] Serum or plasma cholesterol in HDL measurement (mass/volume)Ordered By: Jaswinder Muñiz on 09-04-2024 Cholesterol in HDL [Mass/Vol] 47 mg/dL >40 [facility] Comment on above: National Cholesterol Education Program (NCEP) guidelines:<40 mg/dL: Low HDL-cholesterol (major risk factor for CHD)>= 60 mg/dL: High HDL-cholesterol (negative risk factor for CHD)HDL-cholesterol is affected by a number of factors, e.g. smoking, exercise, hormones, sex and age. Serum or plasma cholesterol measurement (mass/volume)Ordered By: Jaswinder Muñiz on 09-04-2024 Cholesterol [Mass/Vol] 241 mg/dL High <201 [facility] Comment on above: Cholesterol level, D esirable <200 mg/dLBorderline high cholesterol 200-239 mg/dLHigh cholesterol >=240 mg/dLRecommendations of the NCEP Adult Treatment Panel for the following risk-cutoff thresholds for the [place] population. Serum or plasma urea nitroge n measurement (mass/volume)Ordered By: Jaswinder Muñiz on 09-04-2024 Urea nitrogen [Mass/Vol] 10 mg/dL 4-19 [facility] Sodium levelOrdered By: Jah Muñiz on 09-04-2024 Sodium [Moles/Vol] 136 mmol/L 133-145 [facility] TSH DL <= 0.005 mIU/L QnOrde red By: Jaswinder Muñiz on 09-04-2024 TSH Qn 2.070 uIU/mL 0.300-4.20 0 [facility] Thyroid Stim Hormone (TSH)on 09-04-2024 TSH 2.070 uIU/mL Normal 0.300-4.20 0 [facility] Comment on above: Order Comment: Order Date: 09/04/24 Order Info: [id number] - CMP Order Info: [id number] - LIPID Order Info: [id number] - TSH Performed By: #### L 500.4050, L100.0100, L501.9539, L500.6423 #### [facility] [address] [place], [address] Total proteinOrdered By: Aury Muñiz on 09-04-2024 Protein [Mass/Vol] 7.2 g/dL 5.9-8.4 [facility] Triglycerides measurementOrd ered By: Jaswinder Muñiz on 09-04-2024 Triglyceride [Mass/Vol] 131 mg/dL <199 [facility] Comment on above: The drugs N-Acetylcy steine and Metamizole may falsely depress this assay. Normal range: <150 mg/dLBorderline High: 150-199 mg/dLHigh: 200-499 mg/dLVery High: >500 mg/dL Vitamin D,25 Hydroxyon 09-04 Vitamin D 25-OH 22.5 ng/mL Low 30-100 [facility] Comment on above: Order Comment: Order Date: 09/04/24 Order Info: [id number] - CMP Order Info: [id number] - LIPID Order Info: [id number] - TSH Result Comment: Shelbi min D Status Deficiency: <20 ng/mL (50nmol/L) Insufficiency: 20-30 ng/mL (50-75 nmol/L) Sufficiency: 30-100 ng/mL (75-250 nmol/L) Toxicity: >100 ng/mL (>250 nmol/L) Performed By: #### L 506.1001 #### [facility] [place], [address] White blood cell (WBC) count Ordered By: Jaswinder Muñiz on 09-04-2024 WBC (Bld) [#/Vol] 7.0 10*3/uL 4.4-11.0 [facility] Absolute lymphocyte countOrd ered By: Yobany Snell on 07-18-2024 Lymphocytes Auto (Unsp spec) [#/Vol] 2.07 10*3/uL 0.83-4.51 [facility] Absolute neutrophil countOrd ered By: Yobany Snell on 07-18-2024 Neutrophils (Bld) [#/Vol] 5.4 10*3/uL 2.0-7.7 [facility] Anion gap in Serum or Plasma Ordered By: Yobany Snell on 07-18-2024 Anion gap [Moles/Vol] 14 mmol/L 5-15 [facility] Automated lymphocyte count a s percentage of total leukocytesOrdered By: Yobany Snell on 07-18-2024 Lymphocytes/100 WBC Auto (Unsp spec) 24.8 % 19-41 [facility] BUN/creatinine ratioOrdered By: Yobany Snell on 07-18-2024 Urea nitrogen/Creatinine [Mass ratio] 10.1 mg/mg 10-20 [facility] Basophil percentageOrdered B y: Yobany Snell on 07-18-2024 Basophils/100 WBC (Bld) 1.4 % High 0-1 [facility] Bilirubin, totalOrdered By: Yobany Snell on 07-18-2024 Bilirubin [Mass/Vol] 0.33 mg/dL 0.00-1.30 [facility] CBC W/Diff, Automatedon Absolute Lymph 2.07 X10 3/uL Normal 0.83-4.51 [facility] Comment on above: Performed By: #### L 500.4100, L506.1001, L501.9520, L100.0100, L500.4050 #### [facility] [address] [place], [address] Absolute Neut 5.4 X10 3/uL Normal 2.0-7.7 [facility] Comment on above: Performed By: #### L 500.4100, L506.1001, L501.9520, L100.0100, L500.4050 #### [facility] [address] [place], [address] Basophils/100 WBC (Bld) 1.4 % High 0-1 [facility] Comment on above: Performed By: #### L 500.4100, L506.1001, L501.9520, L100.0100, L500.4050 #### [facility] [address] [place], [address] Eosinophils/100 WBC (Bld) 1.6 % Normal 0-5 [facility] Comment on above: Performed By: #### L 500.4100, L506.1001, L501.9520, L100.0100, L500.4050 #### [facility] [address] [place], [address] Erythrocyte distribution width (RBC) [Ratio] 12.6 % Normal 11.6-14.6 [facility] Comment on above: Performed By: #### L 500.4100, L506.1001, L501.9520, L100.0100, L500.4050 #### [facility] [address] [place], [address] Hematocrit (Bld) [Volume fraction] 41.6 % Normal 37-47 [facility] Comment on above: Performed By: #### L 500.4100, L506.1001, L501.9520, L100.0100, L500.4050 #### [facility] [address] [place], [address] Hemoglobin (Bld) [Mass/Vol] 14.3 g/dL Normal 12.0-15.0 [facility] Comment on above: Performed By: #### L 500.4100, L506.1001, L501.9520, L100.0100, L500.4050 #### [facility] [address] [place], [address] IG% 0.400 Normal 0.0-0.9 [facility] Comment on above: Result Comment: IG% - Immature Granulocytes (promyelocytes, myelocytes and metamyelocytes) > 1% indicates that a LEFT SHIFT is Present. Performed By: #### L 500.4100, L506.1001, L501.9520, L100.0100, L500.4050 #### [facility] [address] [place], [address] Lymphocytes/100 WBC (Bld) 24.8 % Normal 19-41 [facility] Comment on above: Performed By: #### L 500.4100, L506.1001, L501.9520, L100.0100, L500.4050 #### [facility] [address] [place], [address] MCH (RBC) [Entitic mass] 33.0 pg High 27.0-32.0 [facility] Comment on above: Performed By: #### L 500.4100, L506.1001, L501.9520, L100.0100, L500.4050 #### [facility] [address] [place], [address] MCHC (RBC) [Mass/Vol] 34.4 g/dL Normal 32-36 [facility] Comment on above: Performed By: #### L 500.4100, L506.1001, L501.9520, L100.0100, L500.4050 #### [facility] [address] [place], [address] MCV (RBC) [Entitic vol] 96.1 fL Normal 81-99 [facility] Comment on above: Performed By: #### L 500.4100, L506.1001, L501.9520, L100.0100, L500.4050 #### [facility] [address] [place], [address] Monocytes/100 WBC (Bld) 7.2 % Normal 0-10 [facility] Comment on above: Performed By: #### L 500.4100, L506.1001, L501.9520, L100.0100, L500.4050 #### [facility] [address] [place], [address] Neutrophils/100 WBC (Bld) 64.6 % Normal 47-70 [facility] Comment on above: Performed By: #### L 500.4100, L506.1001, L501.9520, L100.0100, L500.4050 #### [facility] [address] [place], [address] Nucleated RBC (Bld) [#/Vol] 0 10*3/uL Normal 0-5 [facility] Comment on above: Performed By: #### L 500.4100, L506.1001, L501.9520, L100.0100, L500.4050 #### [facility] [address] [place], [address] Platelet mean volume (Bld) [Entitic vol] 9.0 fL Normal 6.2-12.0 [facility] Comment on above: Performed By: #### L 500.4100, L506.1001, L501.9520, L100.0100, L500.4050 #### [facility] [address] [place], [address] Platelets (Bld) [#/Vol] 514 10*3/uL High 150-450 [facility] Comment on above: Performed By: #### L 500.4100, L506.1001, L501.9520, L100.0100, L500.4050 #### [facility] [address] [place], [address] RBC (Bld) [#/Vol] 4.33 10*6/uL Normal 4.2-5.4 [facility] Comment on above: Performed By: #### L 500.4100, L506.1001, L501.9520, L100.0100, L500.4050 #### [facility] [address] [place], [address] RDW SD 45.2 fl High 35.1-43.9 [facility] Comment on above: Performed By: #### L 500.4100, L506.1001, L501.9520, L100.0100, L500.4050 #### [facility] [address] [place], [address] WBC (Bld) [#/Vol] 8.3 10*3/uL Normal 4.4-11.0 [facility] Comment on above: Performed By: #### L 500.4100, L506.1001, L501.9520, L100.0100, L500.4050 #### [facility] [address] [place], [address] Calculated very low density lipoprotein (VLDL) cholesterol measurementOrdered By: Yobany Snell on 07-18-2024 Calculated very low density lipoprotein (VLDL) cholesterol measurement 27 mg/dL 5-40 [facility] VLDL Cholesterol 27 mg/dL 5-40 [facility] Carbon dioxide, total [Moles /volume] in Central venous bloodOrdered By: Yobany Snell on 07-18-2024 CO2 [Moles/Vol] 25.0 mmol/L 21.0-32.0 [facility] Chloride assayOrdered By: Gamaliel Snell on 07-18-2024 Chloride [Moles/Vol] 95 mmol/L Low 98-108 [facility] Comprehensive Metabolic Prof ilon 07-18-2024 Albumin [Mass/Vol] 4.9 g/dL High 3.4-4.8 [facility] Comment on above: Performed By: #### L 500.4100, L506.1001, L501.9520, L100.0100, L500.4050 #### [facility] [address] [place], [address] Albumin/Globulin [Mass ratio] 1.6 {ratio} Normal 0.9-2.4 [facility] Comment on above: Performed By: #### L 500.4100, L506.1001, L501.9520, L100.0100, L500.4050 #### [facility] [address] [place], [address] ALK PHOS 136 U/L High 35-104 [facility] Comment on above: Performed By: #### L 500.4100, L506.1001, L501.9520, L100.0100, L500.4050 #### [facility] [address] [place], [address] ALT [Catalytic activity/Vol] 13 U/L Normal <=34 [facility] Comment on above: Performed By: #### L 500.4100, L506.1001, L501.9520, L100.0100, L500.4050 #### [facility] [address] [place], [address] AST [Catalytic activity/Vol] 19 U/L Normal <=31 [facility] Comment on above: Performed By: #### L 500.4100, L506.1001, L501.9520, L100.0100, L500.4050 #### [facility] [facility] [address] [place], [address] Bilirubin [Mass/Vol] 0.33 mg/dL Normal 0.00-1.30 [facility] Comment on above: Performed By: #### L 500.4100, L506.1001, L501.9520, L100.0100, L500.4050 #### [facility] [address] [place], [address] BUN/CRE 10.1 RATIO Normal 10-20 [facility] Comment on above: Performed By: #### L 500.4100, L506.1001, L501.9520, L100.0100, L500.4050 #### [facility] [address] [place], [address] Calcium [Mass/Vol] 9.4 mg/dL Normal 7.6-11.0 [facility] Comment on above: Performed By: #### L 500.4100, L506.1001, L501.9520, L100.0100, L500.4050 #### [facility] [address] [place], [address] Chloride [Moles/Vol] 95 mmol/L Low 98-108 [facility] Comment on above: Performed By: #### L 500.4100, L506.1001, L501.9520, L100.0100, L500.4050 #### [facility] [address] [place], [address] CO2 [Moles/Vol] 25.0 mmol/L Normal 21.0-32.0 [facility] Comment on above: Performed By: #### L 500.4100, L506.1001, L501.9520, L100.0100, L500.4050 #### [facility] [address] [place], [address] Creatinine [Mass/Vol] 1.09 mg/dL Normal 0.70-1.20 [facility] Comment on above: Performed By: #### L 500.4100, L506.1001, L501.9520, L100.0100, L500.4050 #### [facility] [address] [place], [address] GAP 14 Normal 5-15 [facility] Comment on above: Performed By: #### L 500.4100, L506.1001, L501.9520, L100.0100, L500.4050 #### [facility] [address] [place], [address] GFR/1.73 sq M.predicted among non-blacks MDRD (S/P/Bld) [Vol rate/Area] 56 mL/min/{1.73_m2} Low >60 [facility] Comment on above: Result Comment: mL/m in/1.73m2 CKD-EPI Creatinine Equation (2020) Performed By: #### L 500.4100, L506.1001, L501.9520, L100.0100, L500.4050 #### [facility] [address] [place], [address] Globulin (S) [Mass/Vol] 3.1 g/dL Normal 2.2-4.2 [facility] Comment on above: Performed By: #### L 500.4100, L506.1001, L501.9520, L100.0100, L500.4050 #### [facility] [address] [place], [address] Glucose [Mass/Vol] 113 mg/dL High 70-99 [facility] Comment on above: Performed By: #### L 500.4100, L506.1001, L501.9520, L100.0100, L500.4050 #### [facility] [address] [place], [address] Potassium [Moles/Vol] 3.7 mmol/L Normal 3.3-5.1 [facility] Comment on above: Performed By: #### L 500.4100, L506.1001, L501.9520, L100.0100, L500.4050 #### [facility] [address] [place], [address] Sodium [Moles/Vol] 134 mmol/L Normal 133-145 [facility] Comment on above: Performed By: #### L 500.4100, L506.1001, L501.9520, L100.0100, L500.4050 #### [facility] [address] [place], [address] T PROT 7.9 g/dL Normal 5.9-8.4 [facility] Comment on above: Performed By: #### L 500.4100, L506.1001, L501.9520, L100.0100, L500.4050 #### [facility] [address] [place], [address] Urea nitrogen [Mass/Vol] 11 mg/dL Normal 4-19 [facility] Comment on above: Performed By: #### L 500.4100, L506.1001, L501.9520, L100.0100, L500.4050 #### [facility] [address] [place], [address] Eosinophil percentageOrdered By: Yobany Snell 07-18-2024 Eosinophils/100 WBC (Bld) 1.6 % 0-5 [facility] Erythrocyte distribution wid th ratioOrdered By: Yobany Snell on 07-18-2024 Erythrocyte distribution width (RBC) [Ratio] 12.6 % 11.6-14.6 [facility] Erythrocyte distribution wid th standard deviationOrdered By: Yobany Snell on 07-18-2024 Erythrocyte distribution width (RBC) [Entitic vol] 45.2 fL High 35.1-43.9 [facility] Erythrocyte distribution width (RBC) [Ratio] 45.2 fl High 35.1-43.9 [facility] GFR/1.73 sq M.predicted vic g non-blacks MDRD (S/P/Bld) [Vol rate/Area]Ordered By: Yobany Snell 07-18-2024 Estimated GFR (MDRD) Non-Af Amer 56 Low >60 [facility] Comment on above: mL/min/1.73m2 CKD-EP I Creatinine Equation (2020) Glomerular filtration rate ( GFR) estimation/1.73 sq m using serum, plasma, or whole bOrdered By: Yobany Snell 07-18-2024 GFR/1.73 sq M.predicted among non-blacks MDRD (S/P/Bld) [Vol rate/Area] 56 mL/min/{1.73_m2} Low >60 [facility] Comment on above: mL/min/1.73m2 CKD-EP I Creatinine Equation (2020) Hematocrit Auto (Bld) [Volum e fraction]Ordered By: Yobany Snell 07-18-2024 Hematocrit (Bld) [Volume fraction] 41.6 % 37-47 [facility] Hemoglobin measurementOrdere d By: Yobany Snell 07-18-2024 Hemoglobin (Bld) [Mass/Vol] 14.3 g/dL 12.0-15.0 [facility] Immature granulocytes/100 WB C Auto (Bld)Ordered By: Yobany Snell 07-18-2024 Immature granulocytes/100 WBC (Bld) 0.400 % 0.0-0.9 [facility] Comment on above: IG% - Immature Granu locytes (promyelocytes, myelocytes and metamyelocytes) > 1% indicates that a LEFT SHIFT is Present. L506.1001on 07-18-2024 Vitamin D 25-OH 29.5 ng/mL Low 30-100 [facility] Comment on above: Result Comment: Shelbi min D Status Deficiency: <20 ng/mL (50nmol/L) Insufficiency: 20-30 ng/mL (50-75 nmol/L) Sufficiency: 30-100 ng/mL (75-250 nmol/L) Toxicity: >100 ng/mL (>250 nmol/L) Performed By: #### L 500.4100, L506.1001, L501.9520, L100.0100, L500.4050 ####[facility] [address] [place], [address] LDL calc ser/plasOrdered By: Yobany Snell on 07-18-2024 Cholesterol in LDL [Mass/Vol] 256 mg/dL [facility] Comment on above: Usryaeqijn=252-189 m g/dL & Higher Pevz=233 mg/dL or greater LDL Cholesterol, Calculated 256 mg/dL [facility] Comment on above: Kcczjjvbbj=439-018 m g/dL & Higher Xhwp=511 mg/dL or greater Laboratory - Chemistry and C hemistry - challengeOrdered By: Yobany Snell on 07-18-2024 AST [Catalytic activity/Vol] 19 U/L <32 [facility] Lipid Profileon 07-18-2024 CHOL:HDL 6.40 Normal [facility] Comment on above: Performed By: #### L 500.4100, L506.1001, L501.9520, L100.0100, L500.4050 ####[facility] [address] [place], [address] Cholesterol [Mass/Vol] 336 mg/dL High <=200 [facility] Comment on above: Result Comment: Chol esterol level, Desirable <200 mg/dL Borderline high cholesterol 200-239 mg/dL High cholesterol >=240 mg/dL Recommendations of the NCEP Adult Treatment Panel for the following risk-cutoff thresholds for the [place] population. Performed By: #### L 500.4100, L506.1001, L501.9520, L100.0100, L500.4050 ####[facility] [address] [place], [address] Cholesterol in HDL [Mass/Vol] 53 mg/dL Normal [facility] Comment on above: Result Comment: Cassandra onal Cholesterol Education Program (NCEP) guidelines: <40 mg/dL: Low HDL-cholesterol (major risk factor for CHD) >= 60 mg/dL: High HDL-cholesterol (negative risk factor for CHD) HDL-cholesterol is affected by a number of factors, e.g. smoking, exercise, hormones, sex and age. Performed By: #### L 500.4100, L506.1001, L501.9520, L100.0100, L500.4050 ####[facility] [address] [place], [address] Cholesterol in LDL [Mass/Vol] 256 mg/dL Normal [facility] Comment on above: Result Comment: Bord caalyq=947-640 mg/dL Higher Fnpl=946 mg/dL or greater Performed By: #### L 500.4100, L506.1001, L501.9520, L100.0100, L500.4050 ####[facility] [address] [place], [address] Cholesterol in VLDL [Mass/Vol] 27 mg/dL Normal 5-40 [facility] Comment on above: Performed By: #### L 500.4100, L506.1001, L501.9520, L100.0100, L500.4050 ####[facility] [address] [place], [address] Triglyceride [Mass/Vol] 136 mg/dL Normal [facility] Comment on above: Result Comment: The drugs N-Acetylcysteine and Metamizole may falsely depress this assay. Normal range: <150 mg/dL Borderline High: 150-199 mg/dL High: 200-499 mg/dL Very High: >500 mg/dL Performed By: #### L 500.4100, L506.1001, L501.9520, L100.0100, L500.4050 ####[facility] [address] [place], [address] Lymphocytes Auto (Unsp spec) [#/Vol]Ordered By: Yobany Snell on 07-18-2024 Lymphocytes (Bld) [#/Vol] 2.07 10*3/uL 0.83-4.51 [facility] Lymphocytes/100 WBC Auto (Un sp spec)Ordered By: Yobany Snell on 07-18-2024 Lymphocytes/100 WBC (Bld) 24.8 % 19-41 [facility] MCV (mean corpuscular volume ) determinationOrdered By: Yobany Snell on 07-18-2024 MCV (RBC) [Entitic vol] 96.1 fL 81-99 [facility] Mean corpuscular hemoglobin (MCH) determinationOrdered By: Yobany Snell on 07-18-2024 MCH (RBC) [Entitic mass] 33.0 pg High 27.0-32.0 [facility] Mean corpuscular hemoglobin concentration (MCHC) determinationOrdered By: Yobany Snell on 07-18-2024 MCHC (RBC) [Mass/Vol] 34.4 g/dL 32-36 [facility] Mean platelet volume determi nationOrdered By: Yobany Snell on 07-18-2024 Platelet mean volume (Bld) [Entitic vol] 9.0 fL 6.2-12.0 [facility] Monocyte percentageOrdered B y: Yobany Snell on 07-18-2024 Monocytes/100 WBC (Bld) 7.2 % 0-10 [facility] Neutrophil percentageOrdered By: Yobany Snell on 07-18-2024 Neutrophils/100 WBC (Bld) 64.6 % 47-70 [facility] Nucleated red blood cell per centageOrdered By: Yobany Snell on 07-18-2024 Nucleated RBC/100 WBC (Bld) [Ratio] 0 % 0-5 [facility] Platelet countOrdered By: Gamaliel Snell on 07-18-2024 Platelets (Bld) [#/Vol] 514 10*3/uL High 150-450 [facility] Potassium (Unsp spec) [Mass/ Vol]Ordered By: Yobany Snell on 07-18-2024 Potassium [Moles/Vol] 3.7 mmol/L 3.3-5.1 [facility] Potassium measurement (mass/ volume)Ordered By: Yobany Snell on 07-18-2024 Potassium (Unsp spec) [Mass/Vol] 3.7 mmol/L 3.3-5.1 [facility] RBC Auto (Bld) [#/Vol]Ordere d By: Yobany Snell on 07-18-2024 RBC (Bld) [#/Vol] 4.33 10*6/uL 4.2-5.4 [facility] Screening total cholesterol/ high density lipoprotein (HDL) cholesterol ratioOrdered By: Yobany Snell on 07-18-2024 Cholesterol.total/Rhonda sterol in HDL [Mass ratio] 6.40 {ratio} [facility] Serum creatinine measurement (mass/volume)Ordered By: Yobany Snell on 07-18-2024 Creatinine [Mass/Vol] 1.09 mg/dL 0.70-1.20 [facility] Serum globulin measurementOr dered By: Yobany Snell on 07-18-2024 Globulin (S) [Mass/Vol] 3.1 g/dL 2.2-4.2 [facility] Serum glucose measurement (m ass/volume)Ordered By: Yobany Snell on 07-18-2024 Glucose [Mass/Vol] 113 mg/dL High 70-99 [facility] Serum or plasma alanine huggins otransferase (ALT) measurementOrdered By: Yobany Snell 07-18-2024 ALT [Catalytic activity/Vol] 13 U/L <35 [facility] Serum or plasma albumin chace urement (mass/volume)Ordered By: Yobany Snell on 07-18-2024 Albumin [Mass/Vol] 4.9 g/dL High 3.4-4.8 [facility] Serum or plasma albumin/glob ulin mass ratioOrdered By: Yobany Snell 07-18-2024 Albumin/Globulin [Mass ratio] 1.6 {ratio} 0.9-2.4 [facility] Serum or plasma alkaline venice sphatase measurementOrdered By: Yobany Snell 07-18-2024 ALP [Catalytic activity/Vol] 136 U/L High 35-104 [facility] Serum or plasma calcium chace urement (mass/volume)Ordered By: Yobany Snell on 07-18-2024 Calcium [Mass/Vol] 9.4 mg/dL 7.6-11.0 [facility] Serum or plasma cholesterol in HDL measurement (mass/volume)Ordered By: Yobany Snell on 07-18-2024 Cholesterol in HDL [Mass/Vol] 53 mg/dL >40 [facility] Comment on above: National Cholesterol Education Program (NCEP) guidelines:<40 mg/dL: Low HDL-cholesterol (major risk factor for CHD)>= 60 mg/dL: High HDL-cholesterol (negative risk factor for CHD)HDL-cholesterol is affected by a number of factors, e.g. smoking, exercise, hormones, sex and age. Serum or plasma cholesterol measurement (mass/volume)Ordered By: Yobany Snell on 07-18-2024 Cholesterol [Mass/Vol] 336 mg/dL High <201 [facility] Comment on above: Cholesterol level, D esirable <200 mg/dLBorderline high cholesterol 200-239 mg/dLHigh cholesterol >=240 mg/dLRecommendations of the NCEP Adult Treatment Panel for the following risk-cutoff thresholds for the [place] population. Serum or plasma urea nitroge n measurement (mass/volume)Ordered By: Yobany Snell on 07-18-2024 Urea nitrogen [Mass/Vol] 11 mg/dL 4-19 [facility] Sodium levelOrdered By: Yobany Snell on 07-18-2024 Sodium [Moles/Vol] 134 mmol/L 133-145 [facility] TSH DL <= 0.005 mIU/L QnOrde red By: Yobany Snell on 07-18-2024 Thyroid Stimulating Hormone (TSH) 1.310 uIU/mL 0.300-4.20 0 [facility] TSH Qn 1.310 uIU/mL 0.300-4.20 0 [facility] Thyroid Stim Hormone (TSH)on 07-18-2024 TSH 1.310 uIU/mL Normal 0.300-4.20 0 [facility] Comment on above: Performed By: #### L 500.4100, L506.1001, L501.9520, L100.0100, L500.4050 ####[facility] [address] [place], [address] Total proteinOrdered By: Yobany Snell on 07-18-2024 Protein [Mass/Vol] 7.9 g/dL 5.9-8.4 [facility] Triglycerides measurementOrd ered By: Yobany Snell on 07-18-2024 Triglyceride [Mass/Vol] 136 mg/dL <199 [facility] Comment on above: The drugs N-Acetylcy steine and Metamizole may falsely depress this assay. Normal range: <150 mg/dLBorderline High: 150-199 mg/dLHigh: 200-499 mg/dLVery High: >500 mg/dL Vitamin D, 25-hydroxyOrdered By: Yobany Snell on 07-18-2024 Vitamin D 25-Hydroxy 29.5 ng/mL Low 30-100 [facility] Comment on above: Vitamin D StatusDefi ciency: <20 ng/mL (50nmol/L)Insufficiency: 20-30 ng/mL (50-75 nmol/L)Sufficiency: 30-100 ng/mL (75-250 nmol/L)Toxicity: >100 ng/mL (>250 nmol/L) White blood cell (WBC) count Ordered By: Yobany Snell on 07-18-2024 WBC (Bld) [#/Vol] 8.3 10*3/uL 4.4-11.0 [facility] 20-TL-Efgrueq DOrdered By: Oskar Snell on 04-17-2024 Vitamin D 25-Hydroxy 33.1 ng/mL [facility] Comment on above: Vitamin D 25(OH) Sta tus Range Deficiency <20 ng/mL (50nmol/L) Insufficiency 20 - 30 ng/mL (50 - 75 nmol/L) Sufficiency 30 - 100 ng/mL (75 - 250 nmol/L) Toxicity >100 ng/mL (>250 nmol/L) Absolute neutrophil countOrd ered By: Yobany Snell on 04-17-2024 Neutrophils (Bld) [#/Vol] 7.4 10*3/uL 2.0-7.7 [facility] Albumin to globulin ratioOrd ered By: Yobany Snell on 04-17-2024 Albumin/Globulin [Mass ratio] 1.3 {ratio} 0.9-2.4 [facility] Basophil percentageOrdered B y: Yobany Snell on 04-17-2024 Basophils/100 WBC (Bld) 0.6 % 0-1 [facility] Bilirubin, totalOrdered By: Yobany Snell on 04-17-2024 Bilirubin [Mass/Vol] 0.40 mg/dL 0.20-1.00 [facility] Comment on above: For patients on eltr ombopag therapy, use of Dimension [place] TBIL is not recommended. Blood urea nitrogen (BUN)/cr eatinine ratioOrdered By: Yobany Snell on 04-17-2024 Urea nitrogen/Creatinine [Mass ratio] 12.8 mg/mg 10-20 [facility] CBC W/Diff, Automatedon Absolute Lymph 2.42 X10 3/uL Normal 0.83-4.51 [facility] Comment on above: Performed By: #### L 100.0100, L500.4050, L500.4100, L506.1000, L501.9520 ####[facility] [address] [place], [address] Absolute Neut 7.4 X10 3/uL Normal 2.0-7.7 [facility] Comment on above: Performed By: #### L 100.0100, L500.4050, L500.4100, L506.1000, L501.9520 ####[facility] [address] [place], [address] Basophils/100 WBC (Bld) 0.6 % Normal 0-1 [facility] Comment on above: Performed By: #### L 100.0100, L500.4050, L500.4100, L506.1000, L501.9520 ####[facility] [address] [place], [address] Eosinophils/100 WBC (Bld) 2.6 % Normal 0-5 [facility] Comment on above: Performed By: #### L 100.0100, L500.4050, L500.4100, L506.1000, L501.9520 ####[facility] [address] [place], [address] Erythrocyte distribution width (RBC) [Ratio] 12.4 % Normal 11.6-14.6 [facility] Comment on above: Performed By: #### L 100.0100, L500.4050, L500.4100, L506.1000, L501.9520 ####[facility] [address] [place], [address] Hematocrit (Bld) [Volume fraction] 39.1 % Normal 37-47 [facility] Comment on above: Performed By: #### L 100.0100, L500.4050, L500.4100, L506.1000, L501.9520 ####[facility] [address] [place], [address] Hemoglobin (Bld) [Mass/Vol] 12.8 g/dL Normal 12.0-15.0 [facility] Comment on above: Performed By: #### L 100.0100, L500.4050, L500.4100, L506.1000, L501.9520 ####[facility] [address] [place], [address] IG% 0.300 Normal 0.0-0.9 [facility] Comment on above: Result Comment: IG% - Immature Granulocytes (promyelocytes, myelocytes and metamyelocytes) > 1% indicates that a LEFT SHIFT is Present. Performed By: #### L 100.0100, L500.4050, L500.4100, L506.1000, L501.9520 ####[facility] [address] [place], [address] Lymphocytes/100 WBC (Bld) 22.0 % Normal 19-41 [facility] Comment on above: Performed By: #### L 100.0100, L500.4050, L500.4100, L506.1000, L501.9520 ####[facility] [address] [place], [address] MCH (RBC) [Entitic mass] 32.5 pg High 27.0-32.0 [facility] Comment on above: Performed By: #### L 100.0100, L500.4050, L500.4100, L506.1000, L501.9520 ####[facility] [address] [place], [address] MCHC (RBC) [Mass/Vol] 32.7 g/dL Normal 32-36 [facility] Comment on above: Performed By: #### L 100.0100, L500.4050, L500.4100, L506.1000, L501.9520 ####[facility] [address] [place], [address] MCV (RBC) [Entitic vol] 99.2 fL High 81-99 [facility] Comment on above: Performed By: #### L 100.0100, L500.4050, L500.4100, L506.1000, L501.9520 ####[facility] [address] [place], [address] Monocytes/100 WBC (Bld) 6.8 % Normal 0-10 [facility] Comment on above: Performed By: #### L 100.0100, L500.4050, L500.4100, L506.1000, L501.9520 ####[facility] [address] [place], [address] Neutrophils/100 WBC (Bld) 67.7 % Normal 47-70 [facility] Comment on above: Performed By: #### L 100.0100, L500.4050, L500.4100, L506.1000, L501.9520 ####[facility] [address] [place], [address] Nucleated RBC (Bld) [#/Vol] 0 10*3/uL Normal 0-5 [facility] Comment on above: Performed By: #### L 100.0100, L500.4050, L500.4100, L506.1000, L501.9520 ####[facility] [address] [place], [address] Platelet mean volume (Bld) [Entitic vol] 9.2 fL Normal 6.2-12.0 [facility] Comment on above: Performed By: #### L 100.0100, L500.4050, L500.4100, L506.1000, L501.9520 ####[facility] [address] [place], [address] Platelets (Bld) [#/Vol] 457 10*3/uL High 150-450 [facility] Comment on above: Performed By: #### L 100.0100, L500.4050, L500.4100, L506.1000, L501.9520 ####[facility] [address] [place], [address] RBC (Bld) [#/Vol] 3.94 10*6/uL Low 4.2-5.4 [facility] Comment on above: Performed By: #### L 100.0100, L500.4050, L500.4100, L506.1000, L501.9520 ####[facility] [address] [place], [address] RDW SD 45.6 fl High 35.1-43.9 [facility] Comment on above: Performed By: #### L 100.0100, L500.4050, L500.4100, L506.1000, L501.9520 ####[facility] [address] [place], [address] WBC (Bld) [#/Vol] 11.0 10*3/uL Normal 4.4-11.0 [facility] Comment on above: Performed By: #### L 100.0100, L500.4050, L500.4100, L506.1000, L501.9520 ####[facility] [address] [place], [address] Carbon dioxide measurementOr dered By: Yobany Snell on 04-17-2024 CO2 [Moles/Vol] 31.0 mmol/L 21.0-32.0 [facility] Chloride measurementOrdered By: Yobany Snell on 04-17-2024 Chloride [Moles/Vol] 98 mmol/L 98-107 [facility] Comprehensive Metabolic Prof ilon 04-17-2024 Albumin [Mass/Vol] 4.3 g/dL Normal 3.2-5.0 [facility] Comment on above: Performed By: #### L 100.0100, L500.4050, L500.4100, L506.1000, L501.9520 ####[facility] [address] [place], [address] Albumin/Globulin [Mass ratio] 1.3 {ratio} Normal 0.9-2.4 [facility] Comment on above: Performed By: #### L 100.0100, L500.4050, L500.4100, L506.1000, L501.9520 ####[facility] [address] [place], [address] ALK P 121 U/L High 45-117 [facility] Comment on above: Performed By: #### L 100.0100, L500.4050, L500.4100, L506.1000, L501.9520 ####[facility] [address] [place], [address] ALT [Catalytic activity/Vol] 17 U/L Normal 13-56 [facility] Comment on above: Performed By: #### L 100.0100, L500.4050, L500.4100, L506.1000, L501.9520 ####[facility] [address] [place], [address] AST [Catalytic activity/Vol] 11 U/L Low 15-37 [facility] Comment on above: Performed By: #### L 100.0100, L500.4050, L500.4100, L506.1000, L501.9520 ####[facility] [address] [place], [address] Bilirubin [Mass/Vol] 0.40 mg/dL Normal 0.20-1.00 [facility] Comment on above: Result Comment: For patients on eltrombopag therapy, use of Dimension [place] TBIL is not recommended. Performed By: #### L 100.0100, L500.4050, L500.4100, L506.1000, L501.9520 ####[facility] [address] [place], [address] BUN/CRE 12.8 RATIO Normal 10-20 [facility] Comment on above: Performed By: #### L 100.0100, L500.4050, L500.4100, L506.1000, L501.9520 ####[facility] [address] [place], [address] CA,Total 9.2 mg/dL Normal 8.5-10.1 [facility] Comment on above: Performed By: #### L 100.0100, L500.4050, L500.4100, L506.1000, L501.9520 ####[facility] [address] [place], [address] Chloride [Moles/Vol] 98 mmol/L Normal 98-107 [facility] Comment on above: Performed By: #### L 100.0100, L500.4050, L500.4100, L506.1000, L501.9520 ####[facility] [address] [place], [address] CO2 [Moles/Vol] 31.0 mmol/L Normal 21.0-32.0 [facility] Comment on above: Performed By: #### L 100.0100, L500.4050, L500.4100, L506.1000, L501.9520 ####[facility] [address] [place], [address] Creatinine [Mass/Vol] 1.17 mg/dL High 0.55-1.02 [facility] Comment on above: Result Comment: The validity of the calculated GFR GFRAA in patients over 70 years has not been determined. Clinical correlation is essential. Performed By: #### L 100.0100, L500.4050, L500.4100, L506.1000, L501.9520 ####[facility] [address] [place], [address] EST GFR - AA 60 mL/min Normal >60 [facility] Comment on above: Result Comment: Afri can English GFR Calc Performed By: #### L 100.0100, L500.4050, L500.4100, L506.1000, L501.9520 ####[facility] [facility] [address] [place], [address] GAP 6 Normal 5-15 [facility] Comment on above: Performed By: #### L 100.0100, L500.4050, L500.4100, L506.1000, L501.9520 ####[facility] [address] [place], [address] GFR/1.73 sq M.predicted among non-blacks MDRD (S/P/Bld) [Vol rate/Area] 49 mL/min/{1.73_m2} Low >60 [facility] Comment on above: Result Comment: Non- GFR Calc Performed By: #### L 100.0100, L500.4050, L500.4100, L506.1000, L501.9520 ####[facility] [address] [place], [address] Globulin (S) [Mass/Vol] 3.3 g/dL Normal 2.2-4.2 [facility] Comment on above: Performed By: #### L 100.0100, L500.4050, L500.4100, L506.1000, L501.9520 ####[facility] [address] [place], [address] Glucose [Mass/Vol] 92 mg/dL Normal 74-106 [facility] Comment on above: Performed By: #### L 100.0100, L500.4050, L500.4100, L506.1000, L501.9520 ####[facility] [address] [place], [address] Potassium [Moles/Vol] 3.4 mmol/L Low 3.5-5.1 [facility] Comment on above: Performed By: #### L 100.0100, L500.4050, L500.4100, L506.1000, L501.9520 ####[facility] [address] [place], [address] Sodium [Moles/Vol] 135 mmol/L Low 136-145 [facility] Comment on above: Performed By: #### L 100.0100, L500.4050, L500.4100, L506.1000, L501.9520 ####[facility] [address] [place], [address] T PROT 7.6 g/dL Normal 6.4-8.2 [facility] Comment on above: Performed By: #### L 100.0100, L500.4050, L500.4100, L506.1000, L501.9520 ####[facility] [address] [place], [address] Urea nitrogen [Mass/Vol] 15 mg/dL Normal 7-18 [facility] Comment on above: Performed By: #### L 100.0100, L500.4050, L500.4100, L506.1000, L501.9520 ####[facility] [address] [place], [address] Eosinophil percentageOrdered By: Yobany Snell on 04-17-2024 Eosinophils/100 WBC (Bld) 2.6 % 0-5 [facility] Erythrocyte distribution wid th ratioOrdered By: [facility] on 04-17-2024 Erythrocyte distribution width (RBC) [Ratio] 12.4 % 11.6-14.6 [facility] Erythrocyte distribution wid th standard deviationOrdered By: Yobany Channing on 04-17-2024 Erythrocyte distribution width (RBC) [Entitic vol] 45.6 fL High 35.1-43.9 [facility] Estimated glomerular filtrat ion rate (GFR) AmericanOrdered By: Yobany Snell on 04-17-2024 Estimated GFR (MDRD) Amer 60 mL/min >60 [facility] Comment on above: GFR Calc Glomerular filtration rate ( GFR) estimationOrdered By: Yobany Snell 04-17-2024 Estimated GFR (MDRD) Non-Af Amer 49 mL/min Low >60 [facility] Comment on above: Non- GFR Calc Glucose measurementOrdered B y: Yobany Snell on 04-17-2024 Glucose [Mass/Vol] 92 mg/dL 74-106 [facility] Hematocrit Auto (Bld) [Volum e fraction]Ordered By: Yobany Snell on 04-17-2024 Hematocrit (Bld) [Volume fraction] 39.1 % 37-47 [facility] Hemoglobin measurementOrdere d By: Yobany Snell 04-17-2024 Hemoglobin (Bld) [Mass/Vol] 12.8 g/dL 12.0-15.0 [facility] High density lipoprotein (HD L) measurementOrdered By: Yobany Snell 04-17-2024 Cholesterol in HDL [Mass/Vol] 47 mg/dL >40 [facility] Comment on above: The drugs N-Acetylcy steine and Metamizole may falsely depress this assay. Reference Range HDL <40 mg/dL Low HDL Cholesterol HDL >or= 60 mg/dL High HDL Cholesterol Immature granulocytes/100 WB C Auto (Bld)Ordered By: Yobany Snell on 04-17-2024 Immature granulocytes/100 WBC (Bld) 0.300 % 0.0-0.9 [facility] Comment on above: IG% - Immature Granu locytes (promyelocytes, myelocytes and metamyelocytes) > 1% indicates that a LEFT SHIFT is Present. Laboratory - Chemistry and C hemistry - challengeOrdered By: Yobany Snell on 04-17-2024 AST [Catalytic activity/Vol] 11 U/L Low 15-37 [facility] Lipid Profileon 04-17-2024 Cholesterol [Mass/Vol] 243 mg/dL High 200 [facility] Comment on above: Result Comment: <200 mg/dL Desirable 200-240 mg/dL Borderline >240 mg/dL High Risk Performed By: #### L 100.0100, L500.4050, L500.4100, L506.1000, L501.9520 ####[facility] [address] [place], [address] Cholesterol in HDL [Mass/Vol] 47 mg/dL Normal [facility] Comment on above: Result Comment: The drugs N-Acetylcysteine and Metamizole may falsely depress this assay. Reference Range HDL <40 mg/dL Low HDL Cholesterol HDL >or= 60 mg/dL High HDL Cholesterol Performed By: #### L 100.0100, L500.4050, L500.4100, L506.1000, L501.9520 ####[facility] [address] [place], [address] Cholesterol in LDL [Mass/Vol] 150 mg/dL High 0-130 [facility] Comment on above: Performed By: #### L 100.0100, L500.4050, L500.4100, L506.1000, L501.9520 ####[facility] [address] [place], [address] Cholesterol in VLDL [Mass/Vol] 46 mg/dL High 5-40 [facility] Comment on above: Performed By: #### L 100.0100, L500.4050, L500.4100, L506.1000, L501.9520 ####[facility] [address] [facility] [place], [address] Triglyceride [Mass/Vol] 230 mg/dL High [facility] Comment on above: Result Comment: The drugs N-Acetylcysteine and Metamizole may falsely depress this assay. Serum Triglycerides Reference Interval Normal <150 mg/dL Borderline high 150 - 199 mg/dL High 200 - 499 mg/dL Very High > or = 500 mg/dL Performed By: #### L 100.0100, L500.4050, L500.4100, L506.1000, L501.9520 ####[facility] [address] [facility] [place], [place], [id number] Low density lipoprotein (LDL ) cholesterol measurementOrdered By: Yobany Snell on 04-17-2024 Cholesterol in LDL [Mass/Vol] 150 mg/dL High 0-130 [facility] Lymphocytes Auto (Unsp spec) [#/Vol]Ordered By: Yobany Snell on 04-17-2024 Lymphocytes (Bld) [#/Vol] 2.42 10*3/uL 0.83-4.51 [facility] Lymphocytes/100 WBC Auto (Un sp spec)Ordered By: Yobany Snell on 04-17-2024 Lymphocytes/100 WBC (Bld) 22.0 % 19-41 [facility] MCV (mean corpuscular volume ) determinationOrdered By: Yobany Snell on 04-17-2024 MCV (RBC) [Entitic vol] 99.2 fL High 81-99 [facility] Mean corpuscular hemoglobin (MCH) determinationOrdered By: Yobany Snell on 04-17-2024 MCH (RBC) [Entitic mass] 32.5 pg High 27.0-32.0 [facility] Mean corpuscular hemoglobin concentration (MCHC) determinationOrdered By: Yobany Snell on 04-17-2024 MCHC (RBC) [Mass/Vol] 32.7 g/dL 32-36 [facility] Mean platelet volume determi nationOrdered By: Yobany Snell on 04-17-2024 Platelet mean volume (Bld) [Entitic vol] 9.2 fL 6.2-12.0 [facility] Monocyte percentageOrdered B y: Yobany Snell on 04-17-2024 Monocytes/100 WBC (Bld) 6.8 % 0-10 [facility] Neutrophil percentageOrdered By: Yobany Snell on 04-17-2024 Neutrophils/100 WBC (Bld) 67.7 % 47-70 [facility] Nucleated red blood cell per centageOrdered By: Yobany Snell on 04-17-2024 Nucleated RBC/100 WBC (Bld) [Ratio] 0 % 0-5 [facility] Platelet countOrdered By: Gamaliel Snell on 04-17-2024 Platelets (Bld) [#/Vol] 457 10*3/uL High 150-450 [facility] Potassium measurementOrdered By: Yobany Snell on 04-17-2024 Potassium [Moles/Vol] 3.4 mmol/L Low 3.5-5.1 [facility] RBC Auto (Bld) [#/Vol]Ordere d By: Yobany Snell on 04-17-2024 RBC (Bld) [#/Vol] 3.94 10*6/uL Low 4.2-5.4 [facility] Serum anion gap measurementO rdered By: Yobany Snell on 04-17-2024 Anion gap [Moles/Vol] 6 mmol/L 5-15 [facility] Serum globulin measurementOr dered By: Yobany Snell on 04-17-2024 Globulin (S) [Mass/Vol] 3.3 g/dL 2.2-4.2 [facility] Serum or plasma alanine huggins otransferase (ALT) measurementOrdered By: Yobany Snell 04-17-2024 ALT [Catalytic activity/Vol] 17 U/L 13-56 [facility] Serum or plasma albumin chace urement (mass/volume)Ordered By: Yobany Snell 04-17-2024 Albumin [Mass/Vol] 4.3 g/dL 3.2-5.0 [facility] Serum or plasma alkaline venice sphatase measurementOrdered By: Yobany Snell on 04-17-2024 ALP [Catalytic activity/Vol] 121 U/L High 45-117 [facility] Serum or plasma calcium chace urement (mass/volume)Ordered By: Yobany Snell on 04-17-2024 Calcium [Mass/Vol] 9.2 mg/dL 8.5-10.1 [facility] Serum or plasma cholesterol measurement (mass/volume)Ordered By: Yobany Snell on 04-17-2024 Cholesterol [Mass/Vol] 243 mg/dL High <200 [facility] Comment on above: <200 mg/dL Desirable 200-240 mg/dL Borderline >240 mg/dL High Risk Serum or plasma creatinine m easurement (mass/volume)Ordered By: Yobany Snell on 04-17-2024 Creatinine [Mass/Vol] 1.17 mg/dL High 0.55-1.02 [facility] Comment on above: The validity of the calculated GFR & GFRAA in patients over 70 years has not been determined. Clinical correlation is essential. Serum or plasma urea nitroge n measurement (mass/volume)Ordered By: Yobany Snell on 04-17-2024 Urea nitrogen [Mass/Vol] 15 mg/dL 7-18 [facility] Sodium levelOrdered By: Yobany Snell on 04-17-2024 Sodium [Moles/Vol] 135 mmol/L Low 136-145 [facility] TSH QnOrdered By: Yobany Snell o n 04-17-2024 Thyroid Stimulating Hormone (TSH) 1.990 uIU/mL 0.358-3.74 0 [facility] Thyroid Stim Hormone (TSH)on 04-17-2024 TSH 1.990 uIU/mL Normal 0.358-3.74 0 [facility] Comment on above: Performed By: #### L 100.0100, L500.4050, L500.4100, L506.1000, L501.9520 ####[facility] [address] [place], [address] Total proteinOrdered By: Yobany Snell on 04-17-2024 Protein [Mass/Vol] 7.6 g/dL 6.4-8.2 [facility] Triglycerides measurementOrd ered By: Yobany Snell on 04-17-2024 Triglyceride [Mass/Vol] 230 mg/dL High <199 [facility] Comment on above: The drugs N-Acetylcy steine and Metamizole may falsely depress this assay.Serum Triglycerides Reference Interval Normal <150 mg/dL Borderline high 150 - 199 mg/dL High 200 - 499 mg/dL Very High > or = 500 mg/dL Very low density lipoprotein (VLDL) cholesterol measurementOrdered By: Yobany Snell on 04-17-2024 VLDL Cholesterol 46 mg/dL High 5-40 [facility] Vitamin D,25 Hydroxyon 04-17 Vitamin D 25-OH 33.1 ng/mL Normal [facility] Comment on above: Result Comment: Shelbi min D 25(OH) Status Range Deficiency <20 ng/mL (50nmol/L) Insufficiency 20 - 30 ng/mL (50 - 75 nmol/L) Sufficiency 30 - 100 ng/mL (75 - 250 nmol/L) Toxicity >100 ng/mL (>250 nmol/L) Performed By: #### L 100.0100, L500.4050, L500.4100, L506.1000, L501.9520 ####[facility] [address] [place], [place], [id number] White blood cell (WBC) count Ordered By: Yobany Snell on 04-17-2024 WBC (Bld) [#/Vol] 11.0 10*3/uL 4.4-11.0 [facility] SCRN MAMM (CAD)W/TERRENCE BILATo n 02-07-2024 SCRN MAMM (CAD)W/TERRENCE BILAT [facility] [address] [place], [place] [id number] SCRN MAMM (CAD)W/TERRENCE BILAT MR#: [id number] Acct: [id number] Name: NAVIN AUGUST I Rep #: [id number] : 1960 F 63 From: Flo paredes MD PCP: Dr. Yobany Snell MD Status: REG CLI Study: SCRN MAMM (CAD)W/TERRENCE BILAT Date of Exam: 01/16 08/07 Exam# [id number] Ordering Dr: Yobany Snell MD [id number] MAMMOGRAPHY - BILATERAL SCREENING REASON FOR EXAM: [...] delay biopsy of a clinically suspicious abnormality. [id number] Electronically Signed: Flo Reyes MD at 8:30 EDT , CC: Dr. Yobany Snell MD [employer]: Signed Normal [facility] CBC W/Diff, Automatedon 12-16 Absolute Lymph 2.13 X10 3/uL Normal 0.83-4.51 [facility] Comment on above: Performed By: #### L 506.1000, L500.4050, L500.4100, L501.9520, L100.0100 ####[facility] [address] [place], [address] Absolute Neut 5.1 X10 3/uL Normal 2.0-7.7 [facility] Comment on above: Performed By: #### L 506.1000, L500.4050, L500.4100, L501.9520, L100.0100 ####[facility] [address] [place], [address] Basophils/100 WBC (Bld) 0.8 % Normal 0-1 [facility] Comment on above: Performed By: #### L 506.1000, L500.4050, L500.4100, L501.9520, L100.0100 ####[facility] [address] [place], [address] Eosinophils/100 WBC (Bld) 1.4 % Normal 0-5 [facility] Comment on above: Performed By: #### L 506.1000, L500.4050, L500.4100, L501.9520, L100.0100 ####[facility] [address] [place], [address] Erythrocyte distribution width (RBC) [Ratio] 12.5 % Normal 11.6-14.6 [facility] Comment on above: Performed By: #### L 506.1000, L500.4050, L500.4100, L501.9520, L100.0100 ####[facility] [address] [place], [address] Hematocrit (Bld) [Volume fraction] 37.1 % Normal 37-47 [facility] Comment on above: Performed By: #### L 506.1000, L500.4050, L500.4100, L501.9520, L100.0100 ####[facility] [address] [place], [address] Hemoglobin (Bld) [Mass/Vol] 12.4 g/dL Normal 12.0-15.0 [facility] Comment on above: Performed By: #### L 506.1000, L500.4050, L500.4100, L501.9520, L100.0100 ####[facility] [address] [place], [address] IG% 0.300 Normal 0.0-0.9 [facility] Comment on above: Result Comment: IG% - Immature Granulocytes (promyelocytes, myelocytes and metamyelocytes) > 1% indicates that a LEFT SHIFT is Present. Performed By: #### L 506.1000, L500.4050, L500.4100, L501.9520, L100.0100 ####[facility] [address] [place], [address] Lymphocytes/100 WBC (Bld) 26.9 % Normal 19-41 [facility] Comment on above: Performed By: #### L 506.1000, L500.4050, L500.4100, L501.9520, L100.0100 ####[facility] [address] [place], [address] MCH (RBC) [Entitic mass] 32.7 pg High 27.0-32.0 [facility] Comment on above: Performed By: #### L 506.1000, L500.4050, L500.4100, L501.9520, L100.0100 ####[facility] [address] [place], [address] MCHC (RBC) [Mass/Vol] 33.4 g/dL Normal 32-36 [facility] Comment on above: Performed By: #### L 506.1000, L500.4050, L500.4100, L501.9520, L100.0100 ####[facility] [address] [place], [address] MCV (RBC) [Entitic vol] 97.9 fL Normal 81-99 [facility] Comment on above: Performed By: #### L 506.1000, L500.4050, L500.4100, L501.9520, L100.0100 ####[facility] [address] [place], [address] Monocytes/100 WBC (Bld) 6.3 % Normal 0-10 [facility] Comment on above: Performed By: #### L 506.1000, L500.4050, L500.4100, L501.9520, L100.0100 ####[facility] [address] [place], [address] Neutrophils/100 WBC (Bld) 64.3 % Normal 47-70 [facility] Comment on above: Performed By: #### L 506.1000, L500.4050, L500.4100, L501.9520, L100.0100 ####[facility] [address] [place], [address] Nucleated RBC (Bld) [#/Vol] 0 10*3/uL Normal 0-5 [facility] Comment on above: Performed By: #### L 506.1000, L500.4050, L500.4100, L501.9520, L100.0100 ####[facility] [address] [place], [address] Platelet mean volume (Bld) [Entitic vol] 8.9 fL Normal 6.2-12.0 [facility] Comment on above: Performed By: #### L 506.1000, L500.4050, L500.4100, L501.9520, L100.0100 ####[facility] [address] [place], [address] Platelets (Bld) [#/Vol] 506 10*3/uL High 150-450 [facility] Comment on above: Performed By: #### L 506.1000, L500.4050, L500.4100, L501.9520, L100.0100 ####[facility] [address] [place], [address] RBC (Bld) [#/Vol] 3.79 10*6/uL Low 4.2-5.4 [facility] Comment on above: Performed By: #### L 506.1000, L500.4050, L500.4100, L501.9520, L100.0100 ####[facility] [address] [place], [address] RDW SD 44.8 fl High 35.1-43.9 [facility] Comment on above: Performed By: #### L 506.1000, L500.4050, L500.4100, L501.9520, L100.0100 ####[facility] [address] [place], [address] WBC (Bld) [#/Vol] 7.9 10*3/uL Normal 4.4-11.0 [facility] Comment on above: Performed By: #### L 506.1000, L500.4050, L500.4100, L501.9520, L100.0100 ####[facility] [address] [place], [address] Comprehensive Metabolic Prof [facility] 01-12-2024 Albumin [Mass/Vol] 4.0 g/dL Normal 3.2-5.0 [facility] Comment on above: Performed By: #### L 506.1000, L500.4050, L500.4100, L501.9520, L100.0100 ####[facility] [address] [place], [address] Albumin/Globulin [Mass ratio] 1.2 {ratio} Normal 0.9-2.4 [facility] Comment on above: Performed By: #### L 506.1000, L500.4050, L500.4100, L501.9520, L100.0100 ####[facility] [address] [place], [address] ALK P 95 U/L Normal 45-117 [facility] Comment on above: Performed By: #### L 506.1000, L500.4050, L500.4100, L501.9520, L100.0100 ####[facility] [address] [place], [address] ALT [Catalytic activity/Vol] 20 U/L Normal 13-56 [facility] Comment on above: Performed By: #### L 506.1000, L500.4050, L500.4100, L501.9520, L100.0100 ####[facility] [address] [place], [address] AST [Catalytic activity/Vol] 14 U/L Low 15-37 [facility] Comment on above: Performed By: #### L 506.1000, L500.4050, L500.4100, L501.9520, L100.0100 ####[facility] [address] [place], [address] Bilirubin [Mass/Vol] 0.30 mg/dL Normal 0.20-1.00 [facility] Comment on above: Result Comment: For patients on eltrombopag therapy, use of Dimension [place] TBIL is not recommended. Performed By: #### L 506.1000, L500.4050, L500.4100, L501.9520, L100.0100 ####[facility] [address] [place], [address] BUN/CRE 9.1 RATIO Low 10-20 [facility] Comment on above: Performed By: #### L 506.1000, L500.4050, L500.4100, L501.9520, L100.0100 ####[facility] [address] [place], [address] CA,Total 9.2 mg/dL Normal 8.5-10.1 [facility] Comment on above: Performed By: #### L 506.1000, L500.4050, L500.4100, L501.9520, L100.0100 ####[facility] [address] [place], [address] Chloride [Moles/Vol] 97 mmol/L Low 98-107 [facility] Comment on above: Performed By: #### L 506.1000, L500.4050, L500.4100, L501.9520, L100.0100 ####[facility] [address] [place], [address] CO2 [Moles/Vol] 29.0 mmol/L Normal 21.0-32.0 [facility] Comment on above: Performed By: #### L 506.1000, L500.4050, L500.4100, L501.9520, L100.0100 ####[facility] [address] [place], [address] Creatinine [Mass/Vol] 0.99 mg/dL Normal 0.55-1.02 [facility] Comment on above: Result Comment: The validity of the calculated GFR GFRAA in patients over 70 years has not been determined. Clinical correlation is essential. Performed By: #### L 506.1000, L500.4050, L500.4100, L501.9520, L100.0100 ####[facility] [address] [place], [address] EST GFR - AA 73 mL/min Normal >60 [facility] Comment on above: Result Comment: Afri can English GFR Calc Performed By: #### L 506.1000, L500.4050, L500.4100, L501.9520, L100.0100 ####[facility] [address] [place], [address] GAP 5 Normal 5-15 [facility] Comment on above: Performed By: #### L 506.1000, L500.4050, L500.4100, L501.9520, L100.0100 ####[facility] [address] [place], [address] GFR/1.73 sq M.predicted among non-blacks MDRD (S/P/Bld) [Vol rate/Area] 60 mL/min/{1.73_m2} Normal >60 [facility] Comment on above: Result Comment: Non- GFR Calc Performed By: #### L 506.1000, L500.4050, L500.4100, L501.9520, L100.0100 ####[facility] [address] [place], [address] Globulin (S) [Mass/Vol] 3.4 g/dL Normal 2.2-4.2 [facility] Comment on above: Performed By: #### L 506.1000, L500.4050, L500.4100, L501.9520, L100.0100 ####[facility] [address] [place], [address] Glucose [Mass/Vol] 109 mg/dL High 74-106 [facility] Comment on above: Result Comment: Fast ing Glucose result from 100 to 125 mg/dL suggests IMPAIRED HOMEOSTASIS per A.D.A. criteria. Performed By: #### L 506.1000, L500.4050, L500.4100, L501.9520, L100.0100 ####[facility] [address] [place], [address] Potassium [Moles/Vol] 3.8 mmol/L Normal 3.5-5.1 [facility] Comment on above: Performed By: #### L 506.1000, L500.4050, L500.4100, L501.9520, L100.0100 ####[facility] [address] [place], [address] Sodium [Moles/Vol] 131 mmol/L Low 136-145 [facility] Comment on above: Performed By: #### L 506.1000, L500.4050, L500.4100, L501.9520, L100.0100 ####[facility] [address] [place], [address] T PROT 7.4 g/dL Normal 6.4-8.2 [facility] Comment on above: Performed By: #### L 506.1000, L500.4050, L500.4100, L501.9520, L100.0100 ####[facility] [address] [place], [address] Urea nitrogen [Mass/Vol] 9 mg/dL Normal 7-18 [facility] Comment on above: Performed By: #### L 506.1000, L500.4050, L500.4100, L501.9520, L100.0100 ####[facility] [address] [place], [address] Lipid Profileon 01-12-2024 Cholesterol [Mass/Vol] 259 mg/dL High 200 [facility] Comment on above: Result Comment: <200 mg/dL Desirable 200-240 mg/dL Borderline >240 mg/dL High Risk Performed By: #### L 506.1000, L500.4050, L500.4100, L501.9520, L100.0100 ####[facility] [address] [place], [address] Cholesterol in HDL [Mass/Vol] 51 mg/dL Normal [facility] Comment on above: Result Comment: The drugs N-Acetylcysteine and Metamizole may falsely depress this assay. Reference Range HDL <40 mg/dL Low HDL Cholesterol HDL >or= 60 mg/dL High HDL Cholesterol Performed By: #### L 506.1000, L500.4050, L500.4100, L501.9520, L100.0100 ####[facility] [address] [place], [address] Cholesterol in LDL [Mass/Vol] 176 mg/dL High 0-130 [facility] Comment on above: Performed By: #### L 506.1000, L500.4050, L500.4100, L501.9520, L100.0100 ####[facility] [address] [place], [address] Cholesterol in VLDL [Mass/Vol] 32 mg/dL Normal 5-40 [facility] Comment on above: Performed By: #### L 506.1000, L500.4050, L500.4100, L501.9520, L100.0100 ####[facility] [address] [place], [address] Triglyceride [Mass/Vol] 160 mg/dL Normal [facility] Comment on above: Result Comment: The drugs N-Acetylcysteine and Metamizole may falsely depress this assay. Serum Triglycerides Reference Interval Normal <150 mg/dL Borderline high 150 - 199 mg/dL High 200 - 499 mg/dL Very High > or = 500 mg/dL Performed By: #### L 506.1000, L500.4050, L500.4100, L501.9520, L100.0100 ####[facility] [address] [place], [address] Thyroid Stim Hormone (TSH)on 01-12-2024 TSH 0.893 uIU/mL Normal 0.358-3.74 0 [facility] Comment on above: Performed By: #### L 506.1000, L500.4050, L500.4100, L501.9520, L100.0100 ####[facility] [id number] [place], [place], [address] Vitamin D,25 Hydroxyon 01-11 Vitamin D 25-OH 32.4 ng/mL Normal [facility] Comment on above: Result Comment: Shelbi min D 25(OH) Status Range Deficiency <20 ng/mL (50nmol/L) Insufficiency 20 - 30 ng/mL (50 - 75 nmol/L) Sufficiency 30 - 100 ng/mL (75 - 250 nmol/L) Toxicity >100 ng/mL (>250 nmol/L) Performed By: #### L 506.1000, L500.4050, L500.4100, L501.9520, L100.0100 ####[facility] [address] [place], [place], [address] Absolute lymphocyte countOrd ered By: Yobany Snell on 07-15-2023 Lymphocytes Auto (Unsp spec) [#/Vol] 1.80 10*3/uL 0.83-4.51 [facility] Automated lymphocyte count a s percentage of total leukocytesOrdered By: Yobany Silvaok on 07-15-2023 Lymphocytes/100 WBC Auto (Unsp spec) 29.4 % 19-41 [facility] Basophil percentageOrdered B y: Yobany Snell on 07-15-2023 Basophils/100 WBC (Bld) 1.1 % 0-1 [facility] Bilirubin [Mass/Vol] 0.30 mg/dL 0.20-1.00 [facility] Comment on above: For patients on eltr ombopag therapy, use of Dimension [place] TBIL is not recommended. Chloride [Moles/Vol] 101 mmol/L 98-107 [facility] Cholesterol [Mass/Vol] 244 mg/dL <200 [facility] Comment on above: <200 mg/dL Desirable 200-240 mg/dL Borderline >240 mg/dL High Risk Eosinophils/100 WBC (Bld) 2.8 % 0-5 [facility] Glucose [Mass/Vol] 118 mg/dL 74-106 [facility] Comment on above: Fasting Glucose resu lt from 100 to 125 mg/dL suggests IMPAIRED HOMEOSTASIS per A.D.A. criteria. Hemoglobin (Bld) [Mass/Vol] 13.8 g/dL 12.0-15.0 [facility] Monocytes/100 WBC (Bld) 7.7 % 0-10 [facility] Neutrophils (Bld) [#/Vol] 3.6 10*3/uL 2.0-7.7 [facility] Neutrophils/100 WBC (Bld) 58.7 % 47-70 [facility] Potassium [Moles/Vol] 4.1 mmol/L 3.5-5.1 [facility] Protein [Mass/Vol] 7.6 g/dL 6.4-8.2 [facility] Sodium [Moles/Vol] 135 mmol/L 136-145 [facility] Triglyceride [Mass/Vol] 128 mg/dL <199 [facility] Comment on above: The drugs N-Acetylcy steine and Metamizole may falsely depress this assay.Serum Triglycerides Reference Interval Normal <150 mg/dL Borderline high 150 - 199 mg/dL High 200 - 499 mg/dL Very High > or = 500 mg/dL WBC (Bld) [#/Vol] 6.1 10*3/uL 4.4-11.0 [facility] Determination of erythrocyte mean corpuscular volume (MCV)Ordered By: Yobany Snell on 07-15-2023 MCV (RBC) [Entitic vol] 96.0 fL 81-99 [facility] Erythrocyte distribution wid th ratioOrdered By: [facility] on 07-15-2023 Erythrocyte distribution width (RBC) [Ratio] 12.3 % 11.6-14.6 [facility] Erythrocyte distribution wid th standard deviationOrdered By: [facility] on 07-15-2023 Erythrocyte distribution width (RBC) [Entitic vol] 43.5 fL 35.1-43.9 [facility] Hematocrit Auto (Bld) [Volum e fraction]Ordered By: [facility] Channing on 07-15-2023 Hematocrit (Bld) [Volume fraction] 40.7 % 37-47 [facility] Immature granulocytes/100 WB C Auto (Bld)Ordered By: Yobany Snell on 07-15-2023 Immature granulocytes/100 WBC (Bld) 0.300 % 0.0-0.9 [facility] Comment on above: IG% - Immature Granu locytes (promyelocytes, myelocytes and metamyelocytes) > 1% indicates that a LEFT SHIFT is Present. Laboratory - Chemistry and C hemistry - challengeOrdered By: Yobany Snell on 07-15-2023 Albumin/Globulin [Mass ratio] 1.1 {ratio} 0.9-2.4 [facility] ALP [Catalytic activity/Vol] 100 U/L 45-117 [facility] ALT [Catalytic activity/Vol] 17 U/L 13-56 [facility] Cholesterol in HDL [Mass/Vol] 48 mg/dL >40 [facility] Comment on above: The drugs N-Acetylcy steine and Metamizole may falsely depress this assay. Reference Range HDL <40 mg/dL Low HDL Cholesterol HDL >or= 60 mg/dL High HDL Cholesterol Cholesterol in LDL [Mass/Vol] 170 mg/dL 0-130 [facility] CO2 [Moles/Vol] 28.0 mmol/L 21.0-32.0 [facility] Globulin (S) [Mass/Vol] 3.6 g/dL 2.2-4.2 [facility] Urea nitrogen/Creatinine [Mass ratio] 11.8 mg/mg 10-20 [facility] Laboratory - Hematology and Cell countsOrdered By: Yobany Snell on 07-15-2023 MCH (RBC) [Entitic mass] 32.5 pg 27.0-32.0 [facility] MCHC (RBC) [Mass/Vol] 33.9 g/dL 32-36 [facility] Nucleated RBC/100 WBC (Bld) [Ratio] 0 % 0-5 [facility] Platelet mean volume (Bld) [Entitic vol] 9.2 fL 6.2-12.0 [facility] Platelets (Bld) [#/Vol] 429 10*3/uL 150-450 [facility] No Panel InformationOrdered By: Yobany Snell on 07-15-2023 Estimated GFR (MDRD) Amer 64 mL/min >60 [facility] Comment on above: GFR Calc Estimated GFR (MDRD) Non-Af Amer 53 mL/min >60 [facility] Comment on above: Non- GFR Calc VLDL Cholesterol 26 mg/dL 5-40 [facility] RBC Auto (Bld) [#/Vol]Ordere d By: Yobany Snell on 07-15-2023 RBC (Bld) [#/Vol] 4.24 10*6/uL 4.2-5.4 [facility] Serum or plasma calcium chace urement (mass/volume)Ordered By: Yobany Snell on 07-15-2023 Calcium [Mass/Vol] 9.5 mg/dL 8.5-10.1 [facility] Serum or plasma creatinine m easurement (mass/volume)Ordered By: Yobany Snell on 07-15-2023 Creatinine [Mass/Vol] 1.10 mg/dL 0.55-1.02 [facility] Comment on above: The validity of the calculated GFR & GFRAA in patients over 70 years has not been determined. Clinical correlation is essential. Serum or plasma thyroid stim ulating hormone (TSH) measurement (units/volume)Ordered By: Yobany Snell on 07-15-2023 TSH Qn 1.41 uIU/mL 0.358-3.74 [facility] Serum or plasma urea nitroge n measurement (mass/volume)Ordered By: Yobany Snell on 07-15-2023 Urea nitrogen [Mass/Vol] 13 mg/dL 7-18 [facility] Thin prep Papanicolaou smear with manual screeningOrdered By: Yobany Snell 07-15-2023 Thin prep Papanicolaou smear with manual screening 4.0 g/dL 3.2-5.0 [facility] Thin prep Papanicolaou smear with manual screening 15 U/L 15-37 [facility] Thin prep Papanicolaou smear with manual screening 6 5-15 [facility] No Panel InformationOrdered By: Yobany Snell on 06-24-2023 Miscellaneous Test See comment [facility] Comment on above: TEST RESULTS LIMITSB [...] (1,2).Additionally, studies have demonstrated that a CSF kvcl-migkoez8-69/1-40 ratio is a better predictor for diagnosing AD than betaamyloid 1-42 levels alone (3). This assay should be used as an adjunct to neurologic evaluation, including diagnostic imaging, cognitive performance scales and other biomarkers of AD.The performance of the [facility] beta-amyloid 42/40 ratio test on the Lumipulse platform (cutoff = 0.058; sensitivity, specificity, PPV, [...] beta-amyloid ratio (1-42/1-40). Alzheimer's Dementia: 16 (Suppl.4): [id number]. Presented at the Alzheimer's Association International Conference 2020, virtual meeting.2. Vesna Bray, Shi J, Kerwin L, et al. Agreement of amyloid PET and CSF biomarkers for Alzheimer's disease on Lumipulse. Annals of Clinical and Translational Neurology 2019; 6(9): 0500-3076.3. Tom O, Manny S, Carroll M, Tracey H and Mateus P. Advantages and disadvantages of the use of the CSF Amyloid beta (A beta) 42/40 ratio in the diagnosis of Alzheimer's Disease. Alz Res / Ther (2019) 11:34.This test was developed and its performance characteristicsdetermined by [employer]. It has not been cleared or approvedby the Food and Drug Administration. TESTING PERFORMED AT [employer]. ORIGINAL REPORT ON FILE IN LAB CONTAINS ADDITIONAL TEST SITE INFORMATION. Basophil percentageOrdered B y: Yobany Snell on 05-03-2023 Chloride [Moles/Vol] 99 mmol/L 98-107 [facility] Glucose [Mass/Vol] 101 mg/dL 74-106 [facility] Comment on above: Fasting Glucose resu lt from 100 to 125 mg/dL suggests IMPAIRED HOMEOSTASIS per A.D.A. criteria. Potassium [Moles/Vol] 3.6 mmol/L 3.5-5.1 [facility] Sodium [Moles/Vol] 135 mmol/L 136-145 [facility] Laboratory - Chemistry and C hemistry - challengeOrdered By: Yobany Snell on 05-03-2023 CO2 [Moles/Vol] 29.0 mmol/L 21.0-32.0 [facility] Sodium (U) [Moles/Vol] 32 mmol/L Not Establ. [facility] Urea nitrogen/Creatinine [Mass ratio] 6.4 mg/mg 10-20 [facility] No Panel InformationOrdered By: Yobany Snell on 05-03-2023 Estimated GFR (MDRD) Amer 65 mL/min >60 [facility] Comment on above: GFR Calc Estimated GFR (MDRD) Non-Af Amer 54 mL/min >60 [facility] Comment on above: Non- GFR Calc Serum or plasma calcium chace urement (mass/volume)Ordered By: Yobany Snell on 05-03-2023 Calcium [Mass/Vol] 9.0 mg/dL 8.5-10.1 [facility] Serum or plasma creatinine m easurement (mass/volume)Ordered By: Yobany Snell on 05-03-2023 Creatinine [Mass/Vol] 1.09 mg/dL 0.55-1.02 [facility] Comment on above: The validity of the calculated GFR & GFRAA in patients over 70 years has not been determined. Clinical correlation is essential. Serum or plasma urea nitroge n measurement (mass/volume)Ordered By: Yobany Snell on 05-03-2023 Urea nitrogen [Mass/Vol] 7 mg/dL 7-18 [facility] Thin prep Papanicolaou smear with manual screeningOrdered By: Yobany Snell on 05-03-2023 Thin prep Papanicolaou smear with manual screening 7 5-15 [facility] Thin prep Papanicolaou smear with manual screening 280 mOsm/KG 280-301 [facility] Urine osmolality measurement Ordered By: Yobany Snell on 05-03-2023 Osmolality (U) [Osmolality] 106 mOsm/KG >50 [facility] Comment on above: Normal Urine Referen ce Ranges Random: 50 - 1200 mOsm/kg H20 depending on fluid intake Random: >850 mOsm/kg after 12 hour fluid restriction 24 hour: ~300 - 900 mOsm/kg H2O Absolute lymphocyte countOrd ered By: Zi San on 04-25-2023 Lymphocytes Auto (Unsp spec) [#/Vol] 2.19 10*3/uL 0.83-4.51 [facility] Basophil percentageOrdered B y: Zi San on 04-25-2023 Basophils/100 WBC (Bld) 0.9 % 0-1 [facility] Chloride [Moles/Vol] 93 mmol/L 98-107 [facility] Eosinophils/100 WBC (Bld) 1.7 % 0-5 [facility] Glucose [Mass/Vol] 120 mg/dL 74-106 [facility] Comment on above: Fasting Glucose resu lt from 100 to 125 mg/dL suggests IMPAIRED HOMEOSTASIS per A.D.A. criteria. Neutrophils (Bld) [#/Vol] 4.7 10*3/uL 2.0-7.7 [facility] Neutrophils/100 WBC (Bld) 61.2 % 47-70 [facility] Potassium [Moles/Vol] 3.5 mmol/L 3.5-5.1 [facility] Sodium [Moles/Vol] 127 mmol/L 136-145 [facility] WBC (Bld) [#/Vol] 7.6 10*3/uL 4.4-11.0 [facility] Blood erythrocytes count (nu mber/volume)Ordered By: Zi San on 04-25-2023 RBC (Bld) [#/Vol] 4.32 10*6/uL 4.2-5.4 [facility] Blood hemoglobin measurement (mass/volume)Ordered By: Zi San on 04-25-2023 Hemoglobin (Bld) [Mass/Vol] 14.0 g/dL 12.0-15.0 [facility] Blood lymphocytes/100 leukoc ytesOrdered By: Zi San on 04-25-2023 Lymphocytes/100 WBC (Bld) 28.7 % 19-41 [facility] Blood monocytes/100 leukocyt esOrdered By: Zi San on 04-25-2023 Monocytes/100 WBC (Bld) 7.2 % 0-10 [facility] Blood platelet mean volumeOr dered By: Zi San on 04-25-2023 Platelet mean volume (Bld) [Entitic vol] 8.7 fL 6.2-12.0 [facility] Determination of erythrocyte mean corpuscular volume (MCV)Ordered By: Zi San on 04-25-2023 MCV (RBC) [Entitic vol] 97.2 fL 81-99 [facility] Hematocrit Auto (Bld) [Volum e fraction]Ordered By: Zi San on 04-25-2023 Hematocrit (Bld) [Volume fraction] 42.0 % 37-47 [facility] Laboratory - Chemistry and C hemistry - challengeOrdered By: Zi San on 04-25-2023 CO2 [Moles/Vol] 28.0 mmol/L 21.0-32.0 [facility] Urea nitrogen/Creatinine [Mass ratio] 5.0 mg/mg 10-20 [facility] Laboratory - Hematology and Cell countsOrdered By: Zi San on 04-25-2023 Erythrocyte distribution width (RBC) [Entitic vol] 43.5 fL 35.1-43.9 [facility] Erythrocyte distribution width (RBC) [Ratio] 12.0 % 11.6-14.6 [facility] Immature granulocytes/100 WBC (Bld) 0.300 % 0.0-0.9 [facility] Comment on above: IG% - Immature Granu locytes (promyelocytes, myelocytes and metamyelocytes) > 1% indicates that a LEFT SHIFT is Present. MCH (RBC) [Entitic mass] 32.4 pg 27.0-32.0 [facility] Nucleated RBC/100 WBC (Bld) [Ratio] 0 % 0-5 [facility] MCHC Auto (RBC) [Mass/Vol]Or dered By: Zi San on 04-25-2023 MCHC (RBC) [Mass/Vol] 33.3 g/dL 32-36 [facility] No Panel InformationOrdered By: Zi San on 04-25-2023 Estimated Creatinine Clearance Calc 52.68 ml/min [facility] Estimated GFR (MDRD) Amer 71 mL/min >60 [facility] Comment on above: GFR Calc Estimated GFR (MDRD) Non-Af Amer 59 mL/min >60 [facility] Comment on above: Non- GFR Calc Platelets bldOrdered By: Thee San on 04-25-2023 Platelets (Bld) [#/Vol] 415 10*3/uL 150-450 [facility] Serum or plasma calcium chace urement (mass/volume)Ordered By: Zi San on 04-25-2023 Calcium [Mass/Vol] 9.3 mg/dL 8.5-10.1 [facility] Serum or plasma creatinine m easurement (mass/volume)Ordered By: Zi San on 04-25-2023 Creatinine [Mass/Vol] 1.01 mg/dL 0.55-1.02 [facility] Comment on above: The validity of the calculated GFR & GFRAA in patients over 70 years has not been determined. Clinical correlation is essential. Serum or plasma urea nitroge n measurement (mass/volume)Ordered By: Zi San on 04-25-2023 Urea nitrogen [Mass/Vol] 5 mg/dL 7-18 [facility] Thin prep Papanicolaou smear with manual screeningOrdered By: Zi San on 04-25-2023 Thin prep Papanicolaou smear with manual screening 6 5-15 [facility] Absolute lymphocyte countOrd ered By: Yobany Snell on 04-15-2023 Lymphocytes Auto (Unsp spec) [#/Vol] 1.79 10*3/uL 0.83-4.51 [facility] Basophil percentageOrdered B y: Yobany Snell on 04-15-2023 Basophils/100 WBC (Bld) 1.3 % 0-1 [facility] Bilirubin [Mass/Vol] 0.40 mg/dL 0.20-1.00 [facility] Comment on above: For patients on eltr ombopag therapy, use of Dimension [place] TBIL is not recommended. Chloride [Moles/Vol] 97 mmol/L 98-107 [facility] Cholesterol [Mass/Vol] 277 mg/dL <200 [facility] Comment on above: <200 mg/dL Desirable 200-240 mg/dL Borderline >240 mg/dL High Risk Eosinophils/100 WBC (Bld) 1.6 % 0-5 [facility] Glucose [Mass/Vol] 122 mg/dL 74-106 [facility] Comment on above: Fasting Glucose resu lt from 100 to 125 mg/dL suggests IMPAIRED HOMEOSTASIS per A.D.A. criteria. Neutrophils (Bld) [#/Vol] 6.2 10*3/uL 2.0-7.7 [facility] Neutrophils/100 WBC (Bld) 70.7 % 47-70 [facility] Potassium [Moles/Vol] 3.8 mmol/L 3.5-5.1 [facility] Protein [Mass/Vol] 8.0 g/dL 6.4-8.2 [facility] Sodium [Moles/Vol] 132 mmol/L 136-145 [facility] Triglyceride [Mass/Vol] 174 mg/dL <199 [facility] Comment on above: The drugs N-Acetylcy steine and Metamizole may falsely depress this assay.Serum Triglycerides Reference Interval Normal <150 mg/dL Borderline high 150 - 199 mg/dL High 200 - 499 mg/dL Very High > or = 500 mg/dL WBC (Bld) [#/Vol] 8.7 10*3/uL 4.4-11.0 [facility] Blood erythrocytes count (nu mber/volume)Ordered By: Yobany Snell on 04-15-2023 RBC (Bld) [#/Vol] 4.40 10*6/uL 4.2-5.4 [facility] Blood hemoglobin measurement (mass/volume)Ordered By: Yobany Snell on 04-15-2023 Hemoglobin (Bld) [Mass/Vol] 14.3 g/dL 12.0-15.0 [facility] Blood lymphocytes/100 leukoc ytesOrdered By: [facility] on 04-15-2023 Lymphocytes/100 WBC (Bld) 20.5 % 19-41 [facility] Blood monocytes/100 leukocyt esOrdered By: [facility] on 04-15-2023 Monocytes/100 WBC (Bld) 5.6 % 0-10 [facility] Blood platelet mean volumeOr dered By: [facility] on 04-15-2023 Platelet mean volume (Bld) [Entitic vol] 9.2 fL 6.2-12.0 [facility] Determination of erythrocyte mean corpuscular volume (MCV)Ordered By: [facility] on 04-15-2023 MCV (RBC) [Entitic vol] 98.2 fL 81-99 [facility] Hematocrit Auto (Bld) [Volum e fraction]Ordered By: [facility] on 04-15-2023 Hematocrit (Bld) [Volume fraction] 43.2 % 37-47 [facility] Laboratory - Chemistry and C hemistry - challengeOrdered By: [facility] on 04-15-2023 ALP [Catalytic activity/Vol] 89 U/L 45-117 [facility] ALT [Catalytic activity/Vol] 21 U/L 13-56 [facility] CO2 [Moles/Vol] 27.0 mmol/L 21.0-32.0 [facility] Globulin (S) [Mass/Vol] 3.8 g/dL 2.2-4.2 [facility] Urea nitrogen/Creatinine [Mass ratio] 7.3 mg/mg 10-20 [facility] Laboratory - Hematology and Cell countsOrdered By: [facility] on 04-15-2023 Erythrocyte distribution width (RBC) [Entitic vol] 45.5 fL 35.1-43.9 [facility] Erythrocyte distribution width (RBC) [Ratio] 12.7 % 11.6-14.6 [facility] Immature granulocytes/100 WBC (Bld) 0.300 % 0.0-0.9 [facility] Comment on above: IG% - Immature Granu locytes (promyelocytes, myelocytes and metamyelocytes) > 1% indicates that a LEFT SHIFT is Present. MCH (RBC) [Entitic mass] 32.5 pg 27.0-32.0 [facility] Nucleated RBC/100 WBC (Bld) [Ratio] 0 % 0-5 [facility] Auto (RBC) [Mass/Vol]Or dered By: Yobany Snell on 04-15-2023 MCHC (RBC) [Mass/Vol] 33.1 g/dL 32-36 [facility] No Panel InformationOrdered By: Yobany Snell on 04-15-2023 Estimated GFR (MDRD) Amer 56 mL/min >60 [facility] Comment on above: GFR Calc Estimated GFR (MDRD) Non-Af Amer 46 mL/min >60 [facility] Comment on above: Non- GFR Calc Miscellaneous Test See comment [facility] Comment on above: TEST RESULTS LIMITSA NBA Alzheimer's RiskMethodology: Patient DNA is assayed for the APOE genotype by PCRamplification of a specific region in exon 4 of the APOEgene followed by digestion with restriction enzyme Clinical Administrator Iand separation of fragments by polyacrylamide gelelectrophoresis. This approach allows the APOE E2, E3, andE4 alleles to be distinguished. Analytical sensitivity andspecificity are >99.5%. Individuals are interpreted ashaving one of the following genotypes: E2/E2, E3/E3, E4/E4,E2/E3, E2/E4, E3/E4.APO E Genotyping Result: [id number]: Negative for the APOE4 variant that is [...] analysis.For inquiries or genetic consultation, please call [facility] .Comment: INFORMATION ABOUT THE APOE GENOTYPE AND ALZHEIMER'S DISEASEAlzheimer's disease (AD) is the most common form ofdementia in the elderly and currently affects more than 5million Americans. It is a progressive neurodegenerativedisorder with brain findings of plaques and neurofibrillarytangles containing beta-amyloid and tau proteinrespectively.The predominant form of AD is late onset (age > 60-65),which can be familial (15-20%) or sporadic. The [id number] increases the risk for late onset AD and maycontribute to the pathology of the disease. This risk isincreased by approximately 2 to 3-fold for individuals withone copy of the APOE4 variant and by approximately [id number] for individuals with two copies of this [...] with late onset AD, the presence of [id number] lead to earlier development of symptoms.However, APOE4 [...] was developed and its performance characteristicsdetermined by [employer]. It has not been cleared or approvedby the Food and Drug Administration. The FDA has determinedthat such clearance or approval is not necessary.REFERENCESAlálvaro Valladares et al. Sex modifies the APOE-related risk ofdeveloping Alzheimer disease. Annal Oojgaq6541;75(4):563-573Bird TD. Alzheimer Disease Overview. [employer]). Miracle PFEIFFER et al., editors. State mental health facility:[facility], [place], [place]. Last revised 2014.Berna SWENSON et al. Genetic counseling and testing forAlzheimer disease: Joint practice guidelines of theEnglish College of Medical Genetics and the [facility] of Genetic Counselors. Sherie in [id number];[phone].Casi BOSS. Apolipoprotein E: Implications for ADneurobiology, epidemiology and risk assessment.Neurobiology of Aging 2011;32:778-790. [facility] ORIGINAL REPORT ON FILE IN LAB CONTAINS ADDITIONAL TEST SITE INFORMATION. Thyroid Stimulating Hormone (TSH) 2.01 uIU/mL 0.358-3.74 [facility] Vitamin D 25-Hydroxy 29.8 ng/mL [facility] Comment on above: Vitamin D 25(OH) Sta tus Range Deficiency <20 ng/mL (50nmol/L) Insufficiency 20 - 30 ng/mL (50 - 75 nmol/L) Sufficiency 30 - 100 ng/mL (75 - 250 nmol/L) Toxicity >100 ng/mL (>250 nmol/L) Platelets bldOrdered By: Yobany Snell on 04-15-2023 Platelets (Bld) [#/Vol] 477 10*3/uL 150-450 [facility] Serum or plasma albumin chace urement (mass/volume)Ordered By: Yobany Snell on 04-15-2023 Albumin [Mass/Vol] 4.2 g/dL 3.2-5.0 [facility] Serum or plasma albumin/glob ulin mass ratioOrdered By: Yobany Snell on 04-15-2023 Albumin/Globulin [Mass ratio] 1.1 {ratio} 0.9-2.4 [facility] Serum or plasma calcium chace urement (mass/volume)Ordered By: Yobany Snell on 04-15-2023 Calcium [Mass/Vol] 9.1 mg/dL 8.5-10.1 [facility] Serum or plasma cholesterol in HDL measurement (mass/volume)Ordered By: Yobany Snell on 04-15-2023 Cholesterol in HDL [Mass/Vol] 55 mg/dL >40 [facility] Comment on above: The drugs N-Acetylcy steine and Metamizole may falsely depress this assay. Reference Range HDL <40 mg/dL Low HDL Cholesterol HDL >or= 60 mg/dL High HDL Cholesterol Serum or plasma cholesterol in VLDL measurement (mass/volume)Ordered By: Yobany Snell on 04-15-2023 Cholesterol in VLDL [Mass/Vol] 35 mg/dL 5-40 [facility] Serum or plasma creatinine m easurement (mass/volume)Ordered By: Yobany Snell on 04-15-2023 Creatinine [Mass/Vol] 1.24 mg/dL 0.55-1.02 [facility] Comment on above: The validity of the calculated GFR & GFRAA in patients over 70 years has not been determined. Clinical correlation is essential. Serum or plasma low density lipoprotein (LDL) cholesterol measurement (mass/volume)Ordered By: Yobany Snell on 04-15-2023 Cholesterol in LDL [Mass/Vol] 187 mg/dL 0-130 [facility] Serum or plasma urea nitroge n measurement (mass/volume)Ordered By: Yobany Snell on 04-15-2023 Urea nitrogen [Mass/Vol] 9 mg/dL 7-18 [facility] Thin prep Papanicolaou smear with manual screeningOrdered By: Yobany Snell on 04-15-2023 Thin prep Papanicolaou smear with manual screening 12 U/L 15-37 [facility] Thin prep Papanicolaou smear with manual screening 8 5-15 [facility] Laboratory - Microbiology an d Antimicrobial susceptibilityOrdered By: Yobany Snell on 04-01-2023 SARS-CoV-2 (COVID-19) RNA CORAL+probe Ql (Unsp spec) [facility] No Panel InformationOrdered By: Yobany Channing on 04-01-2023 Influenza Types A,B Direct FA (RK) [facility] RSV Ag EIAOrdered By: Yobany Ricardo steven on 04-01-2023 RSV Ag Immune stain Ql (Tiss) [facility] Absolute lymphocyte countOrd ered By: Yobany Snell on 01-07-2023 Lymphocytes Auto (Unsp spec) [#/Vol] 2.31 10*3/uL 0.83-4.51 [facility] Basophil percentageOrdered B y: Yobany Snell on 01-07-2023 Basophils/100 WBC (Bld) 0.9 % 0-1 [facility] Bilirubin [Mass/Vol] 0.30 mg/dL 0.20-1.00 [facility] Comment on above: For patients on eltr ombopag therapy, use of Dimension [place] TBIL is not recommended. Chloride [Moles/Vol] 102 mmol/L 98-107 [facility] Cholesterol [Mass/Vol] 227 mg/dL <200 [facility] Comment on above: <200 mg/dL Desirable 200-240 mg/dL Borderline >240 mg/dL High Risk Eosinophils/100 WBC (Bld) 2.6 % 0-5 [facility] Glucose [Mass/Vol] 102 mg/dL 74-106 [facility] Comment on above: Fasting Glucose resu lt from 100 to 125 mg/dL suggests IMPAIRED HOMEOSTASIS per A.D.A. criteria. Neutrophils (Bld) [#/Vol] 5.0 10*3/uL 2.0-7.7 [facility] Neutrophils/100 WBC (Bld) 61.4 % 47-70 [facility] Potassium [Moles/Vol] 4.2 mmol/L 3.5-5.1 [facility] Protein [Mass/Vol] 7.5 g/dL 6.4-8.2 [facility] Sodium [Moles/Vol] 137 mmol/L 136-145 [facility] Triglyceride [Mass/Vol] 153 mg/dL <199 [facility] Comment on above: The drugs N-Acetylcy steine and Metamizole may falsely depress this assay.Serum Triglycerides Reference Interval Normal <150 mg/dL Borderline high 150 - 199 mg/dL High 200 - 499 mg/dL Very High > or = 500 mg/dL WBC (Bld) [#/Vol] 8.1 10*3/uL 4.4-11.0 [facility] Blood erythrocytes count (nu mber/volume)Ordered By: Yobany Snell on 01-07-2023 RBC (Bld) [#/Vol] 4.11 10*6/uL 4.2-5.4 [facility] Blood hemoglobin measurement (mass/volume)Ordered By: Yobany Snell on 01-07-2023 Hemoglobin (Bld) [Mass/Vol] 13.8 g/dL 12.0-15.0 [facility] Blood lymphocytes/100 leukoc ytesOrdered By: Yobany Snell on 01-07-2023 Lymphocytes/100 WBC (Bld) 28.7 % 19-41 [facility] Blood monocytes/100 leukocyt esOrdered By: Yobany Snell on 01-07-2023 Monocytes/100 WBC (Bld) 6.0 % 0-10 [facility] Blood platelet mean volumeOr dered By: Yobany Snell on 01-07-2023 Platelet mean volume (Bld) [Entitic vol] 9.7 fL 6.2-12.0 [facility] Determination of erythrocyte mean corpuscular volume (MCV)Ordered By: Yobany Snell on 01-07-2023 MCV (RBC) [Entitic vol] 102.7 fL 81-99 [facility] Hematocrit Auto (Bld) [Volum e fraction]Ordered By: Yobany Snell on 01-07-2023 Hematocrit (Bld) [Volume fraction] 42.2 % 37-47 [facility] Laboratory - Chemistry and C hemistry - challengeOrdered By: Yobany Snell on 01-07-2023 ALP [Catalytic activity/Vol] 110 U/L 45-117 [facility] ALT [Catalytic activity/Vol] 17 U/L 13-56 [facility] CO2 [Moles/Vol] 28.0 mmol/L 21.0-32.0 [facility] Globulin (S) [Mass/Vol] 3.6 g/dL 2.2-4.2 [facility] Urea nitrogen/Creatinine [Mass ratio] 11.6 mg/mg 10-20 [facility] Laboratory - Hematology and Cell countsOrdered By: Yobany Snell on 01-07-2023 Erythrocyte distribution width (RBC) [Entitic vol] 48.0 fL 35.1-43.9 [facility] Erythrocyte distribution width (RBC) [Ratio] 12.6 % 11.6-14.6 [facility] Immature granulocytes/100 WBC (Bld) 0.400 % 0.0-0.9 [facility] Comment on above: IG% - Immature Granu locytes (promyelocytes, myelocytes and metamyelocytes) > 1% indicates that a LEFT SHIFT is Present. MCH (RBC) [Entitic mass] 33.6 pg 27.0-32.0 [facility] Nucleated RBC/100 WBC (Bld) [Ratio] 0 % 0-5 [facility] MCHC Auto (RBC) [Mass/Vol]Or dered By: Yobany Snell on 01-07-2023 MCHC (RBC) [Mass/Vol] 32.7 g/dL 32-36 [facility] No Panel InformationOrdered By: Yobany Snell on 01-07-2023 Estimated GFR (MDRD) Amer 63 mL/min >60 [facility] Comment on above: GFR Calc Estimated GFR (MDRD) Non-Af Amer 52 mL/min >60 [facility] Comment on above: Non- GFR Calc Thyroid Stimulating Hormone (TSH) 1.09 uIU/mL 0.358-3.74 [facility] Platelets bldOrdered By: Yobany Snell on 01-07-2023 Platelets (Bld) [#/Vol] 458 10*3/uL 150-450 [facility] Serum or plasma albumin chace urement (mass/volume)Ordered By: Yobany Snell on 01-07-2023 Albumin [Mass/Vol] 3.9 g/dL 3.2-5.0 [facility] Serum or plasma albumin/glob ulin mass ratioOrdered By: Yobany Snell on 01-07-2023 Albumin/Globulin [Mass ratio] 1.1 {ratio} 0.9-2.4 [facility] Serum or plasma calcium chace urement (mass/volume)Ordered By: Yobany Snell on 01-07-2023 Calcium [Mass/Vol] 9.2 mg/dL 8.5-10.1 [facility] Serum or plasma cholesterol in HDL measurement (mass/volume)Ordered By: Yobany Snell on 01-07-2023 Cholesterol in HDL [Mass/Vol] 49 mg/dL >40 [facility] Comment on above: The drugs N-Acetylcy steine and Metamizole may falsely depress this assay. Reference Range HDL <40 mg/dL Low HDL Cholesterol HDL >or= 60 mg/dL High HDL Cholesterol Serum or plasma cholesterol in VLDL measurement (mass/volume)Ordered By: Yobany Snell on 01-07-2023 Cholesterol in VLDL [Mass/Vol] 31 mg/dL 5-40 [facility] Serum or plasma creatinine m easurement (mass/volume)Ordered By: Yobany Snell 01-07-2023 Creatinine [Mass/Vol] 1.12 mg/dL 0.55-1.02 [facility] Comment on above: The validity of the calculated GFR & GFRAA in patients over 70 years has not been determined. Clinical correlation is essential. Serum or plasma low density lipoprotein (LDL) cholesterol measurement (mass/volume)Ordered By: Yobany Snell on 01-07-2023 Cholesterol in LDL [Mass/Vol] 147 mg/dL 0-130 [facility] Serum or plasma urea nitroge n measurement (mass/volume)Ordered By: Yobany Snell 01-07-2023 Urea nitrogen [Mass/Vol] 13 mg/dL 7-18 [facility] Thin prep Papanicolaou smear with manual screeningOrdered By: Yobany Snell 01-07-2023 Thin prep Papanicolaou smear with manual screening 13 U/L 15-37 [facility] Thin prep Papanicolaou smear with manual screening 7 5-15 [facility] CNPNon 11-05-2022 DONATON Telephone (ANDRES) -- NAVIN AUGUST ([id number]) 1960 F Date Time Provider Department 11/05/22 [...] * HEADACHE [R51] MYALGIA AND MYOSITIS NOS [[id number]] Abnormal Weight Gain [R63.5] 05/19/2007 01/15/2010 PERS [...] [M47.816] 08/18/2017 Sacroiliitis (HCC) [M46.1] 08/18/2017 Other nursing home (current) drug therapy [Z79.899]11/21/2018 Knee pain [M25.569] 05/24/2019 Fibromyalgia [M79.7] 08/18/2017 Asthma [J45.909] 10/13/2019 Encounter Status:Closed by NEFTALY COKER on 11/05/22 [facility] [place] 10-27-2022 SAEED Telephone (ANDRES) -- NAVIN AUGUST ([id number]) 1960 F Date Time Provider Department 10/27/22 [...] * HEADACHE [R51] MYALGIA AND MYOSITIS NOS [[id number]] Abnormal Weight Gain [R63.5] 05/19/2007 01/15/2010 PERS [...] [M47.816] 08/18/2017 Sacroiliitis (HCC) [M46.1] 08/18/2017 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 CLONIDINE HCL 0.1 MG TABLET 14 t* 0 10/27/2022 11/03/2022 Cmt: [facility] [id number] Route: ORAL Sig: Take 1 tablet by mouth twice daily for 7 days. Take for symptoms of opiate withdrawal Medications Discontinued During This Encounter Prescriptions - cloNIDine HCl (CATAPRES) 0.1 mg tablet (Discont (more content not included)... [facility] 09-11-2022 [facility] Office Visit (ANDRES ) -- NAVIN AUGUST ([id number]) 1960 F Date Time Provider Department 09/11/22 2:00 PM NELSY CHAUDHARI During your visit today, we recorded the following information about you: Temperature Pulse Respiration Blood pressure 97.4 degrees 93/minute 18/minute 141/96 Nelsy Chaudhari PA-C 09/11/2022 2:24 PM Signed This note was created using NovoPedic[employer]. Subjective Navin August is a 62 year [...] this. Continue using (more content not included)... [facility] [place] 07-27-2022 SAEED Telephone (PAMMJK) -- NAVIN AUGUST ([id number]) 1960 F Date Time Provider Department 07/27/22 [...] Date Reviewed: 07/23/2022 Reviewed by: Nelsy Chaudhari PAOdiliaC - Fully Assessed Reason for Visit: UDS/ [...] * HEADACHE [R51] MYALGIA AND MYOSITIS NOS [[id number]] Abnormal Weight Gain [R63.5] 05/19/2007 01/15/2010 PERS [...] [M47.816] 08/18/2017 Sacroiliitis (HCC) [M46.1] 08/18/2017 Other nursing home (current) drug therapy [Z79.899]11/21/2018 Knee pain [M25.569] 05/24/2019 Fibromyalgia [M79.7] 08/18/2017 Asthma [J45.909] 10/13/2019 -- Questionnaire: AG SPINE PAIN PILL COUNT MEDICATION NAME -> fentanyl STRENGTH -> 50 Cmt: mg LAST FILL DATE -> 07/19/2022 QUANTITY FILLED -> 15 QUANTITY REMAINING -> 10 COMMENTS -> appropriate count Encounter Status:Closed by LILIANA GRAHAM on 07/28/22 [facility] [place] 07-23-2022 CNPN Telephone (ANDRES) -- NAVIN AUGUST ([id number]) 1960 F Date Time Provider Department 07/23/22 [...] * HEADACHE [R51] MYALGIA AND MYOSITIS NOS [[id number]] Abnormal Weight Gain [R63.5] 05/19/2007 01/15/2010 PERS [...] [M47.816] 08/18/2017 Sacroiliitis (HCC) [M46.1] 08/18/2017 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 Snell on 06-16-2022 SARS-CoV-2 (COVID-19) RNA CORAL+probe Ql (Unsp spec) Detected Not Detect [facility] Comment on above: Normal Reference [...] 06-16-2022 Influenza Types A,B Direct FA (RK) [facility] RSV Ag EIAOrdered By: Dr. Ricardo harris on 06-16-2022 RSV Ag Immune stain Ql (Tiss) [facility] Absolute lymphocyte countOrd ered By: Dr. Snell on 06-15-2022 Lymphocytes Auto (Unsp spec) [#/Vol] 2.02 10*3/uL 0.83-4.51 [facility] Basophil percentageOrdered B y: Dr. Snell on 06-15-2022 Basophils/100 WBC (Bld) 0.9 % 0-1 [facility] Bilirubin [Mass/Vol] 0.40 mg/dL 0.20-1.00 [facility] Comment on above: For patients on eltr ombopag therapy, use of Dimension [place] TBIL is not recommended. Chloride [Moles/Vol] 96 mmol/L 98-107 [facility] Eosinophils/100 WBC (Bld) 2.5 % 0-5 [facility] Glucose [Mass/Vol] 101 mg/dL 74-106 [facility] Comment on above: Fasting Glucose resu lt from 100 to 125 mg/dL suggests IMPAIRED HOMEOSTASIS per A.D.A. criteria. Neutrophils (Bld) [#/Vol] 5.1 10*3/uL 2.0-7.7 [facility] Neutrophils/100 WBC (Bld) 63.9 % 47-70 [facility] Potassium [Moles/Vol] 3.9 mmol/L 3.5-5.1 [facility] Protein [Mass/Vol] 7.9 g/dL 6.4-8.2 [facility] Sodium [Moles/Vol] 133 mmol/L 136-145 [facility] WBC (Bld) [#/Vol] 8.0 10*3/uL 4.4-11.0 [facility] Blood erythrocytes count (nu mber/volume)Ordered By: Dr. Snell on 06-15-2022 RBC (Bld) [#/Vol] 4.41 10*6/uL 4.2-5.4 [facility] Blood hemoglobin measurement (mass/volume)Ordered By: Dr. Snell on 06-15-2022 Hemoglobin (Bld) [Mass/Vol] 14.4 g/dL 12.0-15.0 [facility] Blood lymphocytes/100 leukoc ytesOrdered By: Dr. Snell on 06-15-2022 Lymphocytes/100 WBC (Bld) 25.4 % 19-41 [facility] Blood monocytes/100 leukocyt esOrdered By: Dr. Snell on 06-15-2022 Monocytes/100 WBC (Bld) 7.0 % 0-10 [facility] Blood platelet mean volumeOr dered By: Dr. Snell on 06-15-2022 Platelet mean volume (Bld) [Entitic vol] 10.0 fL 6.2-12.0 [facility] Determination of erythrocyte mean corpuscular volume (MCV)Ordered By: Dr. Snell on 06-15-2022 MCV (RBC) [Entitic vol] 93.0 fL 81-99 [facility] Hematocrit Auto (Bld) [Volum e fraction]Ordered By: Dr. Snell on 06-15-2022 Hematocrit (Bld) [Volume fraction] 41.0 % 37-47 [facility] Laboratory - Chemistry and C hemistry - challengeOrdered By: Dr. Snell on 06-15-2022 ALP [Catalytic activity/Vol] 83 U/L 45-117 [facility] ALT [Catalytic activity/Vol] 19 U/L 13-56 [facility] CO2 [Moles/Vol] 28.0 mmol/L 21.0-32.0 [facility] Globulin (S) [Mass/Vol] 3.6 g/dL 2.2-4.2 [facility] Urea nitrogen/Creatinine [Mass ratio] 11.5 mg/mg 10-20 [facility] Laboratory - Hematology and Cell countsOrdered By: Dr. Snell on 06-15-2022 Erythrocyte distribution width (RBC) [Entitic vol] 43.8 fL 35.1-43.9 [facility] Erythrocyte distribution width (RBC) [Ratio] 12.7 % 11.6-14.6 [facility] Immature granulocytes/100 WBC (Bld) 0.300 % 0.0-0.9 [facility] Comment on above: IG% - Immature Granu locytes (promyelocytes, myelocytes and metamyelocytes) > 1% indicates that a LEFT SHIFT is Present. MCH (RBC) [Entitic mass] 32.7 pg 27.0-32.0 [facility] Nucleated RBC/100 WBC (Bld) [Ratio] 0 % 0-5 [facility] MCHC Auto (RBC) [Mass/Vol]Or dered By: Dr. Snell on 06-15-2022 MCHC (RBC) [Mass/Vol] 35.1 g/dL 32-36 [facility] No Panel InformationOrdered By: Dr. Snell on 06-15-2022 Estimated GFR (MDRD) Amer 57 mL/min >60 [facility] Comment on above: GFR Calc Estimated GFR (MDRD) Non-Af Amer 47 mL/min >60 [facility] Comment on above: Non- GFR Calc Platelets bldOrdered By: Dr. Snell on 06-15-2022 Platelets (Bld) [#/Vol] 381 10*3/uL 150-450 [facility] Serum or plasma albumin chace urement (mass/volume)Ordered By: Dr. Snell on 06-15-2022 Albumin [Mass/Vol] 4.3 g/dL 3.2-5.0 [facility] Serum or plasma albumin/glob ulin mass ratioOrdered By: Dr. Snell on 06-15-2022 Albumin/Globulin [Mass ratio] 1.2 {ratio} 0.9-2.4 [facility] Serum or plasma calcium chace urement (mass/volume)Ordered By: Dr. Snell on 06-15-2022 Calcium [Mass/Vol] 9.5 mg/dL 8.5-10.1 [facility] Serum or plasma creatinine m easurement (mass/volume)Ordered By: Dr. Snell on 06-15-2022 Creatinine [Mass/Vol] 1.22 mg/dL 0.55-1.02 [facility] Comment on above: The validity of the calculated GFR & GFRAA in patients over 70 years has not been determined. Clinical correlation is essential. Serum or plasma urea nitroge n measurement (mass/volume)Ordered By: Dr. Snell on 06-15-2022 Urea nitrogen [Mass/Vol] 14 mg/dL 7-18 [facility] Thin prep Papanicolaou smear with manual screeningOrdered By: Dr. Snell on 06-15-2022 Thin prep Papanicolaou smear with manual screening 14 U/L 15-37 [facility] Thin prep Papanicolaou smear with manual screening 9 5-15 [facility] Absolute lymphocyte countOrd ered By: Dr. Snell on 04-07-2022 Lymphocytes Auto (Unsp spec) [#/Vol] 1.90 10*3/uL 0.83-4.51 [facility] Basophil percentageOrdered B y: Dr. Snell on 04-07-2022 Basophils/100 WBC (Bld) 0.6 % 0-1 [facility] Bilirubin [Mass/Vol] 0.20 mg/dL 0.20-1.00 [facility] Comment on above: For patients on eltr ombopag therapy, use of Dimension [place] TBIL is not recommended. Chloride [Moles/Vol] 94 mmol/L 98-107 [facility] Cholesterol [Mass/Vol] 239 mg/dL <200 [facility] Comment on above: <200 mg/dL Desirable 200-240 mg/dL Borderline >240 mg/dL High Risk Eosinophils/100 WBC (Bld) 0.8 % 0-5 [facility] Glucose [Mass/Vol] 128 mg/dL 74-106 [facility] Comment on above: Fasting Glucose resu lt greater than or equal to 126 mg/dL suggests DIABETES MELLITUS per A.D.A. criteria. Neutrophils (Bld) [#/Vol] 8.3 10*3/uL 2.0-7.7 [facility] Neutrophils/100 WBC (Bld) 75.8 % 47-70 [facility] Potassium [Moles/Vol] 3.7 mmol/L 3.5-5.1 [facility] Protein [Mass/Vol] 7.3 g/dL 6.4-8.2 [facility] Sodium [Moles/Vol] 131 mmol/L 136-145 [facility] Triglyceride [Mass/Vol] 201 mg/dL <199 [facility] Comment on above: The drugs N-Acetylcy steine and Metamizole may falsely depress this assay.Serum Triglycerides Reference Interval Normal <150 mg/dL Borderline high 150 - 199 mg/dL High 200 - 499 mg/dL Very High > or = 500 mg/dL WBC (Bld) [#/Vol] 10.9 10*3/uL 4.4-11.0 [facility] Blood erythrocytes count (nu mber/volume)Ordered By: Dr. Snell on 04-07-2022 RBC (Bld) [#/Vol] 4.17 10*6/uL 4.2-5.4 [facility] Blood hemoglobin measurement (mass/volume)Ordered By: Dr. Snell on 04-07-2022 Hemoglobin (Bld) [Mass/Vol] 13.2 g/dL 12.0-15.0 [facility] Blood lymphocytes/100 leukoc ytesOrdered By: Dr. Snell on 04-07-2022 Lymphocytes/100 WBC (Bld) 17.4 % 19-41 [facility] Blood monocytes/100 leukocyt esOrdered By: Dr. Snell on 04-07-2022 Monocytes/100 WBC (Bld) 5.1 % 0-10 [facility] Blood platelet mean volumeOr dered By: Dr. Snell on 04-07-2022 Platelet mean volume (Bld) [Entitic vol] 9.6 fL 6.2-12.0 [facility] Determination of erythrocyte mean corpuscular volume (MCV)Ordered By: Dr. Snell on 04-07-2022 MCV (RBC) [Entitic vol] 95.0 fL 81-99 [facility] Hematocrit Auto (Bld) [Volum e fraction]Ordered By: Dr. Snell on 04-07-2022 Hematocrit (Bld) [Volume fraction] 39.6 % 37-47 [facility] Laboratory - Chemistry and C hemistry - challengeOrdered By: Dr. Snell on 04-07-2022 ALP [Catalytic activity/Vol] 84 U/L 45-117 [facility] ALT [Catalytic activity/Vol] 19 U/L 13-56 [facility] CO2 [Moles/Vol] 28.0 mmol/L 21.0-32.0 [facility] Globulin (S) [Mass/Vol] 3.3 g/dL 2.2-4.2 [facility] Urea nitrogen/Creatinine [Mass ratio] 17.8 mg/mg 10-20 [facility] Laboratory - Hematology and Cell countsOrdered By: Dr. Snell on 04-07-2022 Erythrocyte distribution width (RBC) [Entitic vol] 46.5 fL 35.1-43.9 [facility] Erythrocyte distribution width (RBC) [Ratio] 13.2 % 11.6-14.6 [facility] Immature granulocytes/100 WBC (Bld) 0.300 % 0.0-0.9 [facility] Comment on above: IG% - Immature Granu locytes (promyelocytes, myelocytes and metamyelocytes) > 1% indicates that a LEFT SHIFT is Present. MCH (RBC) [Entitic mass] 31.7 pg 27.0-32.0 [facility] Nucleated RBC/100 WBC (Bld) [Ratio] 0 % 0-5 [facility] MCHC Auto (RBC) [Mass/Vol]Or dered By: Dr. Snell on 04-07-2022 MCHC (RBC) [Mass/Vol] 33.3 g/dL 32-36 [facility] No Panel InformationOrdered By: Dr. Snell on 04-07-2022 Estimated GFR (MDRD) Amer 71 mL/min >60 [facility] Comment on above: GFR Calc Estimated GFR (MDRD) Non-Af Amer 59 mL/min >60 [facility] Comment on above: Non- GFR Calc Thyroid Stimulating Hormone (TSH) 0.60 uIU/mL 0.358-3.74 [facility] Vitamin D 25-Hydroxy 36.8 ng/mL [facility] Comment on above: Vitamin D 25(OH) Sta tus Range Deficiency <20 ng/mL (50nmol/L) Insufficiency 20 - 30 ng/mL (50 - 75 nmol/L) Sufficiency 30 - 100 ng/mL (75 - 250 nmol/L) Toxicity >100 ng/mL (>250 nmol/L) Platelets bldOrdered By: Dr. Snell on 04-07-2022 Platelets (Bld) [#/Vol] 422 10*3/uL 150-450 [facility] Serum or plasma albumin chace urement (mass/volume)Ordered By: Dr. Snell on 04-07-2022 Albumin [Mass/Vol] 4.0 g/dL 3.2-5.0 [facility] Serum or plasma albumin/glob ulin mass ratioOrdered By: Dr. Snell on 04-07-2022 Albumin/Globulin [Mass ratio] 1.2 {ratio} 0.9-2.4 [facility] Serum or plasma calcium chace urement (mass/volume)Ordered By: Dr. Snell on 04-07-2022 Calcium [Mass/Vol] 8.9 mg/dL 8.5-10.1 [facility] Serum or plasma cholesterol in HDL measurement (mass/volume)Ordered By: Dr. Snell on 04-07-2022 Cholesterol in HDL [Mass/Vol] 40 mg/dL >40 [facility] Comment on above: The drugs N-Acetylcy steine and Metamizole may falsely depress this assay. Reference Range HDL <40 mg/dL Low HDL Cholesterol HDL >or= 60 mg/dL High HDL Cholesterol Serum or plasma cholesterol in VLDL measurement (mass/volume)Ordered By: Dr. Snell on 04-07-2022 Cholesterol in VLDL [Mass/Vol] 40 mg/dL 5-40 [facility] Serum or plasma creatinine m easurement (mass/volume)Ordered By: Dr. Snell on 04-07-2022 Creatinine [Mass/Vol] 1.01 mg/dL 0.55-1.02 [facility] Comment on above: The validity of the calculated GFR & GFRAA in patients over 70 years has not been determined. Clinical correlation is essential. Serum or plasma low density lipoprotein (LDL) cholesterol measurement (mass/volume)Ordered By: Dr. Snell on 04-07-2022 Cholesterol in LDL [Mass/Vol] 159 mg/dL 0-130 [facility] Serum or plasma urea nitroge n measurement (mass/volume)Ordered By: Dr. Snell on 04-07-2022 Urea nitrogen [Mass/Vol] 18 mg/dL 7-18 [facility] Thin prep Papanicolaou smear with manual screeningOrdered By: Dr. Snell on 04-07-2022 Thin prep Papanicolaou smear with manual screening 14 U/L 15-37 [facility] Thin prep Papanicolaou smear with manual screening 9 5-15 [facility] CNOVon 03-23-2022 CNOV Office Visit (ANDRES ) -- NAVIN AUGUST ([id number]) 1960 F Date Time Provider Department 03/23/22 2:45 PM NELSY CHAUDHARI During your visit today, we recorded the following information about you: Temperature Pulse Respiration Blood pressure 97.7 degrees 86/minute 18/minute 145/68 Nelsy Chaudhari PA-C 03/23/2022 3:10 PM Signed This note was created using [employer]edic[employer]. Subjective Navin August is a 62 year [...] knee issues until (more content not included)... [facility] CNOVon 02-09-2022 CNOV Office Visit (ANDRES ) -- NAVIN AUGUST ([id number]) 1960 F Date Time Provider Department 02/09/22 2:45 PM NELSY CHAUDHARI During your visit today, we recorded the following information about you: Temperature Pulse Respiration Blood pressure 97.3 degrees 98/minute 18/minute 138/76 Nelsy Chaudhari PA-C 02/09/2022 3:27 PM Signed This note was created using [employer]. Subjective Navin August is a 61 year [...] knee issues unt (more content not included)... [facility] CNOVon 12-29-2021 CNOV Office Visit (DUNIAMJK ) -- NAVIN AUGUST ([id number]) 1960 F Date Time Provider Department 12/29/21 2:45 PM NEFTALY COKER During your visit today, we recorded the following information about you: Temperature Pulse Respiration Blood pressure 97.5 degrees 103/minute 20/minute 143/93 Weight Height 20.9 kg 1.499 m Neftaly Coker MD 12/30/2021 3:33 PM Signed This note was created using [employer]. Subjective Navin August is a 61 year [...] physically active, str (more content not included)... [facility] [place] 12-29-2021 SAEED Telephone (ANDRES) -- NAVIN AUGUST ([id number]) 1960 F Date Time Provider Department 12/29/21 NEFTALY COKER During your visit today, we recorded the following information about you: Liliana Graham RN 12/30/2021 11:34 AM Signed OARRS checked prior to setting up fentanyl refill from office visit 12/29/21. Noted 2 fentanyl 50 mcg patches were filled from [facility] in [place] on 12/26/21. I spoke with Navin and [...] * HEADACHE [R51] MYALGIA AND MYOSITIS NOS [[id number]] Abnormal Weight Gain [R63.5] 05/19/2007 01/15/2010 PERS [...] Other lo (more content not included)... Normal [facility] .Auto Diffon 12-26-2021 Basophil, Absolute 0.1 10 3/mcL Normal 0.0-0.2 [facility] ([place]) Comment on above: Performed By: #### T OXSC, UA #### [address] [address] Basophils/100 WBC (Bld) 1.1 % Normal 0.0-2.5 [facility] [facility] ([place]) Comment on above: Performed By: #### T OXSC, UA #### [address] [address] Eosinophil, Absolute 0.2 10 3/mcL Normal 0.0-0.4 [facility] ([place]) Comment on above: Performed By: #### T OXSC, UA #### [address] [address] Eosinophils/100 WBC (Bld) 3.2 % Normal 0.0-7.0 [facility] ([place]) Comment on above: Performed By: #### T OXSC, UA #### [address] [address] Lymphocyte, Absolute 2.4 10 3/mcL Normal 0.8-3.9 [facility] ([place]) Comment on above: Performed By: #### T OXSC, UA #### [address] [address] Lymphocytes/100 WBC (Bld) 37.9 % Normal 10.0-50.0 [facility] ([place]) Comment on above: Performed By: #### T OXSC, UA #### Gabriela [address] [address] Monocyte, Absolute 0.6 10 3/mcL Normal 0.2-1.0 [facility] ([place]) Comment on above: Performed By: #### T OXSC, UA #### [address] [address] Monocytes/100 WBC (Bld) 9.4 % Normal 1.7-13.0 A [facility] ([place]) Comment on above: Performed By: #### T OXSC, UA #### [address] [address] Neutrophils/100 WBC (Bld) 48.4 % Normal 37.0-80.0 [facility] ([place]) Comment on above: Performed By: #### T OXSC, UA #### [address] [address] .GFRon 12-26-2021 GFR 79 ml/min/1.73sqm Normal [facility] ([place]) Comment on above: Result Comment: GFR Population [...] Performed By: #### G FR, CMP #### [address] [address] GFR Non- 65 ml/min/1.73sqm Normal [facility] ([place]) Comment on above: Result Comment: GFR Population [...] mL/min/1.73 square meters Performed By: #### Bryce FR, CMP #### [address] [address] .MDWon 12-26-2021 Monocyte Distribution Width Not performed Normal 0.00-20.00 [facility] ([place]) Comment on above: Result Comment: MDW testing performed only on adult ER patients between the ages of 18-89 years. Performed By: #### Oskar OXJEANNA UA #### [address] [address] .NEUABSon 12-26-2021 Neutrophil, Absolute 3.1 10 3/mcL Normal 2.9-6.2 [facility] ([place]) Comment on above: Performed By: #### T OXSC, UA #### [address] [address] A1Con 12-26-2021 HbA1c (Bld) [Mass fraction] 5.8 % Normal 4.3-6.4 [facility] ([place]) Comment on above: Performed By: #### Bryce FR, CMP #### Gabriela [address] [address] BMPon 12-26-2021 BUN/Creatinine Ratio 6 ratio Low 7-27 [facility] ([place]) Comment on above: Performed By: #### T OXSC, UA #### [address] [address] Calcium [Mass/Vol] 8.7 mg/dL Normal 8.4-10.2 [facility] ([place]) Comment on above: Performed By: #### T OXSC, UA #### [address] [address] Chloride [Moles/Vol] 102 mmol/L Normal 98-107 [facility] ([place] Comment on above: Performed By: #### T OXSC, UA #### [address] [address] CO2 [Moles/Vol] 30 mmol/L Normal 23-31 [facility] ([place]) Comment on above: Performed By: #### T OXSC, UA #### [address] [address] Creatinine [Mass/Vol] 0.88 mg/dL Normal 0.55-1.02 [facility] ([place]) Comment on above: Performed By: #### T OXSC, UA #### [address] [address] Electrolyte Balance 7.0 mEq/L Normal 4.0-15.0 [facility] ([place]) Comment on above: Performed By: #### T OXSC, UA #### [address] [address] Glucose [Mass/Vol] 90 mg/dL Normal 80-115 [facility] ([place]) Comment on above: Performed By: #### T OXSC, UA #### [address] [address] Potassium [Moles/Vol] 4.3 mmol/L Normal 3.5-5.1 [facility] ([place] Comment on above: Performed By: #### T OXSC, UA #### [address] [address] Sodium [Moles/Vol] 139 mmol/L Normal 136-145 [facility] ([place]) Comment on above: Performed By: #### T OXSC, UA #### Gabriela [address] [address] Urea nitrogen [Mass/Vol] 5 mg/dL Low 7-18 [facility] ([place]) Comment on above: Performed By: #### T OXJEANNA, UA #### Gabriela [address] [address] CBCon 12-26-2021 Erythrocyte distribution width (RBC) [Ratio] 12.7 % Normal 11.5-14.5 [facility] ([place]) Comment on above: Performed By: #### T OXJEANNA, UA #### Gabriela [address] [address] Hematocrit (Bld) [Volume fraction] 38.2 % Normal 37.0-47.0 [facility] ([place]) Comment on above: Performed By: #### T OXSC, UA #### Gabriela [address] [address] Hgb 13.3 G/dL Normal 12.0-16.0 [facility] ([place]) Comment on above: Performed By: #### T OXSC, UA #### Gabriela [address] [address] MCH (RBC) [Entitic mass] 33.2 pg High 27.0-31.2 [facility] ([place]) Comment on above: Performed By: #### T OXSC, UA #### Gabriela [address] [address] MCHC 34.7 G/dL Normal 33.0-37.0 [facility] ([place]) Comment on above: Performed By: #### T OXSC, UA #### Gabriela [address] [address] MCV (RBC) [Entitic vol] 95.6 fL High 80.0-94.0 A [facility] ([place]) Comment on above: Performed By: #### T OXSC, UA #### Gabriela [address] [address] Platelet 418 10 3/mcL High 130-400 [facility] ([place]) Comment on above: Performed By: #### T OXSC, UA #### Gabriela [address] [place], [place] [address] Platelet mean volume (Bld) [Entitic vol] 6.8 fL Low 7.4-10.4 [facility] ([place]) Comment on above: Performed By: #### T OXSC, UA #### Gabriela [address] [place], [place] [address] RBC 4.00 10 6/mcL Low 4.20-5.40 [facility] ([place]) Comment on above: Performed By: #### T OXSC, UA #### Gabriela [address] [place], [place] [address] WBC 6.3 10 3/mcL Normal 4.6-10.8 [facility] ([place]) Comment on above: Performed By: #### T OXSC, UA #### Gabriela [address] [place], [place] [address] LABORATORYOrdered By: Radha Padgett on 12-26-2021 Basophil, [...] 12-26-2021 Magnesium [Mass/Vol] 2.0 mg/dL Normal 1.8-2.4 [facility] ([place]) Comment on above: Performed By: #### T PRATEEK WHITTEN #### Gabriela [address] [address] OSMOUon 12-26-2021 U Osmolality 104 mOsm/kg Low 390-1090 [facility] ([place]) Comment on above: Performed By: ###Rose HAINES CMP #### Gabriela [address] [address] TSHon 12-26-2021 TSH Qn 1.35 m[IU]/L Normal 0.36-3.74 [facility] ([place]) Comment on above: Performed By: #### Bryce HAINES CMP #### Gabriela [address] [address] .Auto Diffon 12-25-2021 Basophil, Absolute 0.1 10 3/mcL Normal 0.0-0.2 [facility] ([place]) Comment on above: Performed By: #### T FISH UA #### [address] [address] Basophils/100 WBC (Bld) 1.2 % Normal 0.0-2.5 A [facility] ([place]) Comment on above: Performed By: #### T OXSC, UA #### [address] [address] Eosinophil, Absolute 0.1 10 3/mcL Normal 0.0-0.4 [facility] ([place]) Comment on above: Performed By: #### T OXSC, UA #### [address] [address] Eosinophils/100 WBC (Bld) 0.7 % Normal 0.0-7.0 [facility] ([place]) Comment on above: Performed By: #### T OXSC, UA #### [address] [address] Lymphocyte, Absolute 1.5 10 3/mcL Normal 0.8-3.9 [facility] ([place]) Comment on above: Performed By: #### T OXSC, UA #### [address] [address] Lymphocytes/100 WBC (Bld) 17.7 % Normal 10.0-50.0 [facility] ([place]) Comment on above: Performed By: #### T OXSC, UA #### [address] [address] Monocyte, Absolute 0.5 10 3/mcL Normal 0.2-1.0 [facility] ([place]) Comment on above: Performed By: #### T OXSC, UA #### [address] [address] Monocytes/100 WBC (Bld) 5.9 % Normal 1.7-13.0 A [facility] ([place]) Comment on above: Performed By: #### T OXSC, UA #### [address] [address] Neutrophils/100 WBC (Bld) 74.5 % Normal 37.0-80.0 [facility] ([place]) Comment on above: Performed By: #### T OXNV, UA #### [address] [address] .GFRon 12-25-2021 GFR 78 ml/min/1.73sqm Normal [facility] ([place]) Comment on above: Result Comment: GFR Population [...] Performed By: #### G FR, CMP #### [address] [address] GFR Non- 64 ml/min/1.73sqm Normal [facility] ([place]) Comment on above: Result Comment: GFR Population [...] Performed By: #### G FR, CMP #### [address] [address] GFR Non- 58 ml/min/1.73sqm Normal [facility] ([place]) Comment on above: Result Comment: GFR Population [...] Performed By: #### B MP, GFR #### [address] [address] GFR 70 ml/min/1.73sqm Normal [facility] ([place]) Comment on above: Result Comment: GFR Population [...] Performed By: #### B MP, GFR #### [address] [address] .MDWon 12-25-2021 Monocyte Distribution Width 15.85 Normal 0.00-20.00 [facility] ([place]) Comment on above: Result Comment: For ED adult patients suspected of sepsis, MDW<=20.0 does not rule out sepsis or risk of sepsis Performed By: #### T OXSC, UA #### [address] [address] .NEUABSon 12-25-2021 Neutrophil, Absolute 6.4 10 3/mcL High 2.9-6.2 [facility] ([place]) Comment on above: Performed By: #### T OXSC, UA #### [address] [address] BMPon 12-25-2021 BUN/Creatinine Ratio 4 ratio Low 7-27 [facility] ([place]) Comment on above: Performed By: #### G FR, CMP #### [address] [address] Calcium [Mass/Vol] 8.7 mg/dL Normal 8.4-10.2 [facility] ([place]) Comment on above: Performed By: #### G FR, CMP #### [address] [address] Chloride [Moles/Vol] 97 mmol/L Low 98-107 [facility] ([place]) Comment on above: Performed By: #### G FR, CMP #### [address] [address] CO2 [Moles/Vol] 27 mmol/L Normal 23-31 [facility] ([place]) Comment on above: Performed By: #### G FR, CMP #### [address] [address] Creatinine [Mass/Vol] 0.89 mg/dL Normal 0.55-1.02 [facility] ([place]) Comment on above: Performed By: #### G FR, CMP #### [address] [address] Electrolyte Balance 8.0 mEq/L Normal 4.0-15.0 [facility] ([place]) Comment on above: Performed By: #### G FR, CMP #### [address] [address] Glucose [Mass/Vol] 96 mg/dL Normal 80-115 [facility] ([place]) Comment on above: Performed By: #### G FR, CMP #### [address] [address] Potassium [Moles/Vol] 4.0 mmol/L Normal 3.5-5.1 [facility] ([place]) Comment on above: Performed By: #### G FR, CMP #### [address] [address] Sodium [Moles/Vol] 132 mmol/L Low 136-145 [facility] ([place]) Comment on above: Performed By: #### G FR, CMP #### [address] [address] Urea nitrogen [Mass/Vol] 4 mg/dL Low 7-18 [facility] ([place]) Comment on above: Performed By: #### G FR, CMP #### [address] [address] BUN/Creatinine Ratio 4 ratio Low 7-27 [facility] ([place]) Comment on above: Performed By: #### B MP, GFR #### [address] [address] Calcium [Mass/Vol] 9.6 mg/dL Normal 8.4-10.2 [facility] ([place]) Comment on above: Performed By: #### B MP, GFR #### [address] [address] Chloride [Moles/Vol] 91 mmol/L Low 98-107 [facility] ([place] Comment on above: Performed By: #### B MP, GFR #### [address] [address] CO2 [Moles/Vol] 28 mmol/L Normal 23-31 [facility] ([place]) Comment on above: Performed By: #### B MP, GFR #### [address] [address] Creatinine [Mass/Vol] 0.98 mg/dL Normal 0.55-1.02 [facility] ([place] Comment on above: Performed By: #### B MP, GFR #### [address] [address] Electrolyte Balance 9.0 mEq/L Normal 4.0-15.0 [facility] ([place]) Comment on above: Performed By: #### B MP, GFR #### [address] [address] Glucose [Mass/Vol] 116 mg/dL High 80-115 [facility] ([place]) Comment on above: Performed By: #### B MP, GFR #### Gabriela [address] [address] Potassium [Moles/Vol] 3.7 mmol/L Normal 3.5-5.1 [facility] ([place]) Comment on above: Performed By: #### B MP, GFR #### [address] [address] Sodium [Moles/Vol] 128 mmol/L Low 136-145 [facility] ([place]) Comment on above: Performed By: #### B MP, GFR #### [address] [address] Urea nitrogen [Mass/Vol] 4 mg/dL Low 7-18 [facility] ([place]) Comment on above: Performed By: #### B MP, GFR #### [address] [address] CBCon 12-25-2021 Erythrocyte distribution width (RBC) [Ratio] 12.7 % Normal 11.5-14.5 [facility] ([place]) Comment on above: Performed By: #### T OXSC, UA #### [address] [address] Hematocrit (Bld) [Volume fraction] 42.5 % Normal 37.0-47.0 [facility] ([place]) Comment on above: Performed By: #### T OXSC, UA #### [address] [address] Hgb 15.1 G/dL Normal 12.0-16.0 [facility] ([place]) Comment on above: Performed By: #### T OXSC, UA #### [address] [address] MCH (RBC) [Entitic mass] 33.5 pg High 27.0-31.2 [facility] ([place]) Comment on above: Performed By: #### T OXSC, UA #### [address] [place], [place] [address] MCHC 35.5 G/dL Normal 33.0-37.0 [facility] ([place]) Comment on above: Performed By: #### T OXSC, UA #### Gabriela [address] [place], [place] [address] MCV (RBC) [Entitic vol] 94.2 fL High 80.0-94.0 A [facility] ([place]) Comment on above: Performed By: #### T OXSC, UA #### [address] [place], [place] [address] Platelet 530 10 3/mcL High 130-400 [facility] ([place]) Comment on above: Performed By: #### T OXSC, UA #### Gabriela [address] [address] Platelet mean volume (Bld) [Entitic vol] 6.5 fL Low 7.4-10.4 [facility] ([place]) Comment on above: Performed By: #### T OXSC, UA #### Gabriela [address] [address] RBC 4.52 10 6/mcL Normal 4.20-5.40 [facility] ([place] Comment on above: Performed By: #### T OXSC, UA #### Gabriela [address] [address] WBC 8.6 10 3/mcL Normal 4.6-10.8 [facility] ([place]) Comment on above: Performed By: #### T OXSC, UA #### Gabriela [address] [address] [address] HEAD OR BRAIN W/O CONTRAS Ton [...] 12/25/2021 12:16:50 PM Ordering Provider: KRYSTAL VALLADARES [facility] ([place]) LABORATORYOrdered By: Bridgette Hodgson on 12-25-2021 Osmolality [...] 12-25-2021 Sodium [Moles/Vol] 22 mmol/L Normal 20-110 [facility] ([place]) Comment on above: Performed By: #### Bryce HAINES, CMP #### [address] [address] OSMOSon 12-25-2021 Osmolality [Osmolality] 263 mosm/kg Low 275-300 [facility] ([place]) Comment on above: Performed By: #### Bryce FR, CMP #### Gabriela [address] [address] TOXSCon 12-25-2021 U Ampheta (AO) Negative [facility] ([place]) Comment on above: Performed By: #### T OXSC, UA #### Gabriela [address] [address] U Soraya (AO) Negative [facility] ([place]) Comment on above: Performed By: #### T OXSC, UA #### Gabriela [address] [address] U Hu (AO) Negative [facility] ([place]) Comment on above: Performed By: #### T OXSC, UA #### Gabriela [address] [address] U Cannab (AO) Negative [facility] ([place]) Comment on above: Performed By: #### T OXSC, UA #### Gabriela [address] [address] U Cocaine (AO) Negative Normal [facility] ([place]) Comment on above: Performed By: #### T OXSC, UA #### Gabriela [address] [address] U Methadone (AO) Negative Normal [facility] ([place]) Comment on above: Performed By: #### T OXSC, UA #### Gabriela [address] [address] U PCP (AO) Negative Normal [facility] ([place]) Comment on above: Performed By: #### T OXSC, UA #### Gabriela [address] [address] U TCA (AO) Positive Normal [facility] ([place]) Comment on above: Performed By: #### T OXSC, UA #### Gabriela [address] [address] Urine Opiates (AO) Negative Normal [facility] ([place]) Comment on above: Performed By: #### T OXSC, UA #### Gabriela [address] [address] UAon 12-25-2021 Color (U) Yellow Normal [facility] ([place]) Comment on above: Performed By: #### T OXSC, UA #### Gabriela [address] [address] Glucose (U) [Mass/Vol] Negative Normal Negative [facility] ([place]) Comment on above: Performed By: #### T OXSC, UA #### Gabriela [address] [address] Ketones Ql (U) Negative Normal Negative [facility] ([place]) Comment on above: Performed By: #### T OXSC, UA #### Gabriela [address] [address] UA Appear Clear Normal Clear [facility] ([place]) Comment on above: Performed By: #### T OXSC, UA #### Gabriela [address] [address] UA Blood Trace Abnormal Negative [facility] ([place]) Comment on above: Performed By: #### T OXSC, UA #### Gabriela [address] [address] UA Leuk Est Negative Normal Negative [facility] ([place] Comment on above: Performed By: #### T OXSC, UA #### Gabriela Lazar [address] [place] [address] UA Nitrite Negative Normal Negative [facility] ([place] Comment on above: Performed By: #### T OXSC, UA #### Gabriela [address] [address] UA pH 6.0 Normal 5.0 - 8.0 [facility] ([place] Comment on above: Performed By: #### T OXSC, UA #### Gabriela [address] [address] UA Protein Negative Normal Negative [facility] ([place] Comment on above: Performed By: #### T OXSC, UA #### [place] [address] UA Spec Grav 1.010 Abnormal 1.015-1.02 5 [facility] ([place]) Comment on above: Performed By: #### T OXSC, UA #### Gabriela [address] [address] UA Specimen Type Clean Catch Normal [facility] ([place]) Comment on above: Performed By: #### T OXSC, UA #### [place] [id number] UA Urobilinogen 0.2 E.U./dL Normal 0.2-1.0 [facility] ([place]) Comment on above: Performed By: #### T OXSC, UA #### Gabriela [address] [address] Urobilinogen (U) [Mass/Vol] Negative Normal Negative [facility] ([place] Comment on above: Performed By: #### T OXSC, UA #### Gabriela [address] [address] XR CHEST 1 VIEWon 12-25-2021 XR CHEST [...] 12/25/2021 12:13:51 PM Ordering Provider: KRYSTAL VALLADARES [facility] ([place]) XR FOREARM 2 VIEWS RIGHTon 0 12-11-2021 [...] 12/11/2021 8:34:16 PM Ordering Provider: BALDOMERO HEAD [facility] ([place]) .Auto Diffon 10-20-2021 Basophil, Absolute 0.1 10 3/mcL Normal 0.0-0.2 [facility] ([place]) Comment on above: Performed By: #### Bryce HAINES CMP #### Gabriela [address] [place], [place] [address] Basophils/100 WBC (Bld) 0.8 % Normal 0.0-2.5 A [facility] ([place]) Comment on above: Performed By: #### G FR, CMP #### [address] [address] Eosinophil, Absolute 0.1 10 3/mcL Normal 0.0-0.4 [facility] ([place]) Comment on above: Performed By: #### G FR, CMP #### [address] [address] Eosinophils/100 WBC (Bld) 1.5 % Normal 0.0-7.0 [facility] ([place]) Comment on above: Performed By: #### G FR, CMP #### [address] [address] Lymphocyte, Absolute 1.4 10 3/mcL Normal 0.8-3.9 [facility] ([place]) Comment on above: Performed By: #### G FR, CMP #### [address] [address] Lymphocytes/100 WBC (Bld) 18.5 % Normal 10.0-50.0 [facility] ([place]) Comment on above: Performed By: #### G FR, CMP #### [address] [address] Monocyte, Absolute 0.5 10 3/mcL Normal 0.2-1.0 [facility] ([place] Comment on above: Performed By: #### G FR, CMP #### [address] [address] Monocytes/100 WBC (Bld) 6.6 % Normal 1.7-13.0 [facility] ([place]) Comment on above: Performed By: #### G FR, CMP #### [address] [address] Neutrophils/100 WBC (Bld) 72.6 % Normal 37.0-80.0 [facility] ([place]) Comment on above: Performed By: #### G FR, CMP #### [address] [address] .GFRon 10-20-2021 GFR 64 ml/min/1.73sqm Normal [facility] ([place]) Comment on above: Result Comment: GFR Population [...] Performed By: #### G , CMP #### [address] [address] GFR Non- 53 ml/min/1.73sqm Normal [facility] ([place]) Comment on above: Result Comment: GFR Population [...] Performed By: #### G FR, CMP #### [address] [address] .MDWon 10-20-2021 Monocyte Distribution Width 15.89 Normal 0.00-20.00 [facility] ([place]) Comment on above: Result Comment: For ED adult patients suspected of sepsis, MDW<=20.0 does not rule out sepsis or risk of sepsis Performed By: #### G FR, CMP #### [address] [address] .NEUABSon 10-20-2021 Neutrophil, Absolute 5.6 10 3/mcL Normal 2.9-6.2 [facility] ([place]) Comment on above: Performed By: #### Bryce HAINES, CMP #### [address] [address] CBCon 10-20-2021 Erythrocyte distribution width (RBC) [Ratio] 13.1 % Normal 11.5-14.5 [facility] ([place]) Comment on above: Performed By: #### Bryce HAINES, CMP #### [address] [address] Hematocrit (Bld) [Volume fraction] 41.7 % Normal 37.0-47.0 [facility] ([place]) Comment on above: Performed By: #### Bryce HAINES, CMP #### [address] [address] Hgb 14.4 G/dL Normal 12.0-16.0 [facility] ([place]) Comment on above: Performed By: #### Bryce HAINES, CMP #### [address] [address] MCH (RBC) [Entitic mass] 33.0 pg High 27.0-31.2 [facility] ([place]) Comment on above: Performed By: #### Bryce HAINES, CMP #### [address] [address] MCHC 34.5 G/dL Normal 33.0-37.0 [facility] ([place] Comment on above: Performed By: #### Bryce HAINES, CMP #### [address] [address] MCV (RBC) [Entitic vol] 95.5 fL High 80.0-94.0 A [facility] ([place]) Comment on above: Performed By: #### Bryce HAINES, CMP #### [address] [address] Platelet 381 10 3/mcL Normal 130-400 [facility] ([place]) Comment on above: Performed By: #### Bryce HAINES, CMP #### [address] [address] Platelet mean volume (Bld) [Entitic vol] 7.4 fL Normal 7.4-10.4 [facility] ([place]) Comment on above: Performed By: #### Bryce HAINES, CMP #### [address] [address] RBC 4.36 10 6/mcL Normal 4.20-5.40 [facility] ([place] Comment on above: Performed By: #### Bryce HAINES, CMP #### [address] [address] WBC 7.7 10 3/mcL Normal 4.6-10.8 [facility] ([place] Comment on above: Performed By: #### Bryce HAINES, CMP #### [address] [address] CMPon 10-20-2021 Albumin Level 4.3 G/dL Normal 3.4-4.8 [facility] ([place]) Comment on above: Performed By: #### Bryce HAINES, CMP #### [address] [address] Albumin/Globulin [Mass ratio] 1.3 {ratio} Normal 1.1-2.5 [facility] ([place]) Comment on above: Performed By: #### Bryce HAINES, CMP #### [address] [address] ALP [Catalytic activity/Vol] 93 U/L Normal 40-135 [facility] ([place]) Comment on above: Performed By: #### Bryce HAINES, CMP #### [address] [address] ALT [Catalytic activity/Vol] 36 U/L Normal 14-59 [facility] ([place]) Comment on above: Performed By: #### Bryce HAINES, CMP #### [address] [address] AST [Catalytic activity/Vol] 31 U/L Normal 10-40 [facility] ([place]) Comment on above: Performed By: #### Bryce HAINES, CMP #### [address] [address] Bili Total 0.2 mg/dL Normal 0.2-1.0 [facility] ([place]) Comment on above: Result Comment: Use of this assay is not recommended for patients undergoing treatment with eltrombopag due to the potential for falsely elevated results. Performed By: #### Bryce HAINES, CMP #### [address] [address] BUN/Creatinine Ratio 19 ratio Normal 7-27 [facility] ([place] Comment on above: Performed By: #### Bryce HAINES, CMP #### [address] [address] Calcium [Mass/Vol] 10.0 mg/dL Normal 8.4-10.2 [facility] ([place]) Comment on above: Performed By: #### Bryce HAINES, CMP #### [address] [address] Chloride [Moles/Vol] 98 mmol/L Normal 98-107 [facility] ([place] Comment on above: Performed By: #### Bryce HAINES, CMP #### [address] [address] CO2 [Moles/Vol] 32 mmol/L High 23-31 [facility] ([place]) Comment on above: Performed By: #### Bryce HAINES, CMP #### [address] [address] Creatinine [Mass/Vol] 1.06 mg/dL High 0.55-1.02 [facility] ([place] Comment on above: Performed By: #### Bryce HAINES, CMP #### [address] [address] Electrolyte Balance 9.0 mEq/L Normal 4.0-15.0 [facility] ([place] Comment on above: Performed By: #### Bryce HAINES, CMP #### [address] [address] Globulin 3.2 G/dL Normal [facility] ([place]) Comment on above: Performed By: #### Bryce HAINES, CMP #### [address] [address] Glucose [Mass/Vol] 104 mg/dL Normal 80-115 [facility] ([place]) Comment on above: Performed By: #### G FR, CMP #### [address] [address] Potassium [Moles/Vol] 4.4 mmol/L Normal 3.5-5.1 [facility] ([place]) Comment on above: Performed By: #### G FR, CMP #### [address] [address] Sodium [Moles/Vol] 139 mmol/L Normal 136-145 [facility] ([place]) Comment on above: Performed By: #### G FR, CMP #### [address] [address] Total Protein 7.5 G/dL Normal 6.4-8.2 [facility] ([place]) Comment on above: Performed By: #### G FR, CMP #### [address] [address] Urea nitrogen [Mass/Vol] 20 mg/dL High 7-18 [facility] ([place]) Comment on above: Performed By: #### G FR, CMP #### [address] [address] [address] ABDOMEN/PELVIS W/O CONTRA STon 10-20-2021 CT [...] 10/20/2021 3:49:59 PM Ordering Provider: KRYSTAL VALLADARES [facility] ([place]) LABORATORYOrdered By: Princess Shah on 10-20-2021 Albumin [...] 10/20/2021 5:13:20 PM Ordering Provider: KRYSTAL Perez [facility] ([place]) TOXASSURE COMPRon 11-25-2018 TOXASSURE COMPR FINAL Normal () [facility] Comment on above: Result Comment: ====== [...] consultation, please call . ====== Performed At: [employer] [address] [place] [id number] Juancho Veronica [phone] Performed By: #### L [phone] #### [facility] [address] [place] [address] # [phone] Office Visit: abnormal CT a/ p for c-scopeon 01-11-2017 Dietary management education, guidance, and counseling (procedure) yes Invalid Interpretation Code [facility] Work Phone: Documentation of current medications (procedure) Done Invalid Interpretation Code [facility] Work Phone: Fall risk assessment No Invalid Interpretation Code [facility] Work Phone: Smoking cessation education (procedure) yes Invalid Interpretation Code [facility] Work Phone: Tobacco use [facility] Current every day smoker Invali d Interpretation Code [facility] Work Phone: Vital Signs Date Time Vital Sign Value Performing Clinician Facility 11-18-2024 07:56-0400 Body temperature 97.8 [degF] Jaswinder Muñiz MD Work Phone: [facility] 11-18-2024 07:56-0400 Diastolic blood pressure 66 mm[Hg] Jaswinder Muñiz MD Work Phone: [facility] 11-18-2024 07:56-0400 Heart rate 72 /min Jaswinder Muñiz MD Work Phone: [facility] 11-18-2024 07:56-0400 Respiratory rate 18 /min Jaswinder Muñiz MD Work Phone: [facility] 11-18-2024 07:56-0400 SaO2% (BldA) [Mass fraction] 99 % Jaswinder Muñiz MD Work Phone: [facility] 11-18-2024 07:56-0400 Systolic blood pressure 148 mm[Hg] Jaswinder Muñiz MD Work Phone: [facility] 11-18-2024 05:44-0400 Body height 152.4 cm Jaswinder Muñiz MD Work Phone: [facility] 11-18-2024 05:44-0400 Body mass index (BMI) [Ratio] 32.8 kg/m2 Jaswinder Muñiz MD Work Phone: [facility] 11-18-2024 05:44-0400 Body weight 76.2 kg Jaswinder Muñiz MD Work Phone: [facility] 10-28-2024 21:38-0400 Body temperature 98.1 [degF] Dr. Yobany Snell MD Work Phone: [facility] 10-28-2024 21:38-0400 Diastolic blood pressure 72 mm[Hg] Dr. Yobany Snell MD Work Phone: [facility] 10-28-2024 21:38-0400 Heart rate 79 /min Dr. Yobany Snell MD Work Phone: [phone] [place] [address] 10-28-2024 21:38-0400 Respiratory rate 16 /min Dr. Yobany Snell MD Work Phone: [phone] [place] [address] 10-28-2024 21:38-0400 SaO2% (BldA) [Mass fraction] 92 % Dr. Yobany Snell MD Work Phone: [phone] [place] [address] 10-28-2024 21:38-0400 Systolic blood pressure 118 mm[Hg] Dr. Yobany Snell MD Work Phone: [facility] 10-28-2024 18:46-0400 Body height 152.[address] Yobany Snell MD Work Phone: [facility] 10-28-2024 18:46-0400 Body mass index (BMI) [Ratio] 30.8 kg/m2 Dr. Yobany Snell MD Work Phone: [facility] 10-28-2024 18:46-0400 Body weight 71.[address] Yobany Snell MD Work Phone: [facility] 06-24-2023 14:45-0500 Diastolic blood pressure 72 mm[Hg] [facility] 06-24-2023 14:45-0500 Heart rate 72 /min [facility] 06-24-2023 14:45-0500 Respiratory rate 18 /min [facility] 06-24-2023 14:45-0500 SaO2% (BldA) [Mass fraction] 92 % [facility] 06-24-2023 14:45-0500 Systolic blood pressure 119 mm[Hg] [facility] 06-24-2023 13:35-0500 Body height 152.4 cm [facility] 06-24-2023 13:35-0500 Body mass index (BMI) [Ratio] 27.3 kg/m2 [facility] 06-24-2023 13:35-0500 Body temperature 97.1 [degF] [facility] 06-24-2023 13:35-0500 Body weight 63.5 kg [facility] 04-25-2023 17:41-0500 Heart rate 72 /min [facility] 04-25-2023 17:41-0500 Respiratory rate 18 /min [facility] 04-25-2023 15:42-0500 Body mass index (BMI) [Ratio] 26.4 kg/m2 [facility] 04-25-2023 15:42-0500 Body weight 59.3 kg [facility] 04-25-2023 15:36-0500 Body height 149.86 cm [facility] 04-25-2023 15:36-0500 Body temperature 97.2 [degF] [facility] 04-25-2023 15:36-0500 Diastolic blood pressure 111 mm[Hg] [facility] 04-25-2023 15:36-0500 SaO2% (BldA) [Mass fraction] 100 % [facility] 04-25-2023 15:36-0500 Systolic blood pressure 164 mm[Hg] [facility] 03-23-2022 15:00-0500 Diastolic blood pressure 68 mm[Hg] Nelsy Chaudhari PA-C Work Phone: [facility] 03-23-2022 15:00-0500 Systolic blood pressure 145 mm[Hg] Nelsy Chaudhari PA-C Work Phone: [facility] 03-23-2022 14:59-0500 Body temperature 97.7 [degF] Nelsy Chaudhari PA-C Work Phone: [facility] 03-23-2022 14:59-0500 Heart rate 86 /min Nelsy Chaudhari PA-C Work Phone: [facility] 11-07-2022 14:59-0500 Respiratory rate 18 /min Nelsy Chaudhari PA-C Work Phone: [facility] 03-23-2022 14:59-0500 SaO2% (BldA) [Mass fraction] 93 % Nelsy ADAMS-C Work Phone: [facility] 12-26-2021 11:32-0400 Body temperature 98.78 [degF] CARMEN K[employer]ER [employer] [facility] 12-26-2021 11:32-0400 Diastolic blood pressure 77 mm[Hg] CARMEN FERNANDOER [employer] [facility] 12-26-2021 11:32-0400 Heart rate 66 /min CARMEN FERNANDOER [employer] [facility] 12-26-2021 11:32-0400 Reason For Taking VItal Signs CARMEN KINGER [employer] [facility] 12-26-2021 11:32-0400 Systolic blood pressure 119 mm[Hg] CARMEN FERNANDOER [employer] [facility] 12-26-2021 07:36-0400 Reason For Taking VItal Signs CARMEN OLIVER [employer] [facility] 12-26-2021 07:20-0400 Body temperature 97.7 [degF] CARMEN FERNANDOER [employer] [facility] 12-26-2021 07:20-0400 Diastolic blood pressure 81 mm[Hg] CARMEN KAPPER [employer] [facility] 12-26-2021 07:20-0400 Heart rate 60 /min CARMEN KAPPER [employer] [facility] 12-26-2021 07:20-0400 Reason For Taking VItal Signs CARMEN FERNANDOER [employer] [facility] 12-26-2021 07:20-0400 Respiratory rate 16 /min CARMEN KAPPER [employer] [facility] 12-26-2021 07:20-0400 Systolic blood pressure 120 mm[Hg] CARMEN KAPPER [employer] [facility] 12-26-2021 06:16-0400 Heart rate 63 /min CARMEN KAPPER [employer] [facility] 12-26-2021 04:10-0400 Body temperature 97.52 [degF] CARMEN KAPPER [employer] [facility] 12-26-2021 04:10-0400 Diastolic blood pressure 77 mm[Hg] CARMEN FERNANDOER [employer] [facility] 12-26-2021 04:10-0400 Mean blood pressure 101 mm[Hg] CARMEN KAPPER [employer] [facility] 12-26-2021 04:10-0400 Respiratory rate 16 /min CARMEN KAPPER [employer] [facility] 12-26-2021 04:10-0400 Systolic blood pressure 150 mm[Hg] CARMEN KAPPER [employer] [facility] 12-26-2021 00:30-0400 Mean blood pressure 93 mm[Hg] CARMEN KAPPER [employer] [facility] 12-26-2021 00:30-0400 Respiratory rate 18 /min CARMEN KAPPER [employer] [facility] 12-25-2021 19:04-0400 Mean blood pressure 116 mm[Hg] CARMEN K[employer]ER [employer] [facility] 12-25-2021 16:53-0400 Heart rate 66 /min CARMEN K[employer]ER [employer] [facility] 12-25-2021 14:22-0400 Heart rate 66 /min CARMENBlaine KINGER [employer] [facility] 12-25-2021 14:18-0400 Body height 150 cm CARMEN BOYD [employer] [facility] 12-25-2021 14:18-0400 Body weight 65.4 kg CARMEN K[employer]ER [employer] [facility] 12-25-2021 14:18-0400 Body weight 29.07 kg/m2 CARMEN K[employer] [facility] 12-25-2021 13:19-0400 Heart rate 69 /min CARMEN K[employer]ER [employer] [facility] 12-11-2021 19:48-0400 Body height 149.9 cm BALDOMERO DURESKA DO [facility] 12-11-2021 19:48-0400 Body temperature 98.06 [degF] BALDOMERO DURESKA DO [facility] 12-11-2021 19:48-0400 Body weight 63.6 kg BALDOMERO DURESKA DO [facility] 12-11-2021 19:48-0400 Diastolic blood pressure 86 mm[Hg] BALDOMERO DURESKA DO [facility] 12-11-2021 19:48-0400 Heart rate 90 /min BALDOMERO DURESKA DO [facility] 12-11-2021 19:48-0400 Respiratory rate 18 /min BALDOMERO HEAD DO [facility] 12-11-2021 19:48-0400 Systolic blood pressure 140 mm[Hg] BALDOMERO HEAD DO [facility] 10-20-2021 14:58-0400 Body temperature 98.42 [degF] KRYSTAL VALLADARES MD [facility] 10-20-2021 14:58-0400 Body weight 63.6 kg KRYSTAL VALLADARES MD [facility] 10-20-2021 14:58-0400 Diastolic blood pressure 80 mm[Hg] KRYSTAL VALLADRAES MD [facility] 10-20-2021 14:58-0400 Heart rate 82 /min KRYSTAL VALLADARES MD [facility] 10-20-2021 14:58-0400 Respiratory rate 18 /min KRYSTAL VALLADARES MD [facility] 10-20-2021 14:58-0400 Systolic blood pressure 127 mm[Hg] KRYSTAL VALLADARES MD [facility] 08-01-2021 22:25-0400 Respiratory rate 18 /min TOMMY WOLFF DO [facility] 08-01-2021 21:52-0400 Body height 152.4 cm TOMMY WOLFF DO [facility] 08-01-2021 21:52-0400 Body temperature 97.34 [degF] TOMMY WOLFF DO [facility] 08-01-2021 21:52-0400 Body weight 68.2 kg TOMMY WOLFF DO [facility] 08-01-2021 21:52-0400 Diastolic blood pressure 84 mm[Hg] TOMMY WOLFF DO [facility] 08-01-2021 21:52-0400 Heart rate 81 /min TOMMY WOLFF DO [facility] 08-01-2021 21:52-0400 Respiratory rate 16 /min TOMMY WOLFF DO [facility] 08-01-2021 21:52-0400 Systolic blood pressure 159 mm[Hg] TOMMY WOLFF DO [facility] 01-11-2017 15:29-0400 BMI (Body Mass Index) 26.48 kg/m2 Lisette Rees [facility] Work Phone: 01-11-2017 15:29-0400 BP Diastolic 93 mm[Hg] Lisette Rese [facility] Work Phone: 01-11-2017 15:29-0400 BP Systolic 133 mm[Hg] Lisette Rees [facility] Work Phone: 01-11-2017 15:29-0400 Height 154.31 cm [facility] Work Phone: 01-11-2017 15:29-0400 Pulse (Heart Rate) 65 /min [facility] Work Phone: 01-11-2017 15:29-0400 Respiratory Rate 16 /min [facility] Work Phone: 01-11-2017 15:29-0400 Weight 63.05 kg [facility] Work Phone: 02-03-2011 10:14-0400 Body Temperature 97.8 [degF] [facility] Work Phone: Encounters Encounter Date Encounter Type Care Provider Facility Start: 11-18-2024 End: 11-18-2024 Emergency department patient visit Jaswinder Muñiz MD Work Phone: -Emergency Department Work Phone: Start: 10-28-2024 End: 10-28-2024 Emergency department patient visit Dr. Yobany Snell MD Work Phone: -Emergency Department Work Phone: Start: 10-13-[facility] Facility[facility] Start: 09-29-2024 End: 09-29-[address] Yobany Snell MD Work Phone: [facility] Work Phone: Start: 09-29-2024 End: 09-29-[address] Jaswinder Muñiz MD -Cat Scan [facility] Work Phone: Start: 09-29-2024 End: 09-29-2024 ambulatory Jaswinder Muñiz Facility:[facility] Start: 09-04-2024 End: 09-04-[address] Jaswinder Muñiz MD -Laboratory [facility] Start: 09-04-2024 End: 09-04-[facility] Start: 07-27-2024 ambulatory Abrahan Wild ty:[facility] Start: 07-18-2024 End: 07-18-[address] Yobany Snell MD Work Phone: [facility] Work Phone: Start: 07-18-2024 End: 07-18-[address] Yobany Snell MD -Laboratory, Phy Office 3rd Flr Start: 07-18-2024 End: 07-18-2024 ambulatory [facility] Facility:[facility] Start: 05-15-2024 ambulatory [facility] Facility:[facility] Start: 04-24-2024 ambulatory [facility] Facility:[facility] Start: 04-17-2024 End: 04-17-[address] Yobany Snell MD -Laboratory, Phy Office 3rd Flr Start: 04-17-2024 End: 04-17-2024 ambulatory [facility] Facility:[facility] Start: 02-07-2024 End: 02-07-2024 ambulatory [facility] Facility:[facility] Start: 01-12-2024 End: 01-12-2024 ambulatory [facility] Facility:[facility] Start: 12-07-2023 ambulatory [facility] Facility:[facility] Start: 08-31-2023 End: 08-31-2023 ambulatory [facility] Work Phone: Start: 08-31-2023 End: 08-31-2023 Patient encounter procedure [facility]-Radiology, [facility] Work Phone: Start: 08-12-2023 End: 08-12-2023 ambulatory [facility] Work Phone: Start: 08-12-2023 End: 08-12-2023 Patient encounter procedure [facility]-Pulmonary Services/Neurology Work Phone: Start: 07-15-2023 End: 07-15-2023 ambulatory [facility] Work Phone: Start: 07-15-2023 End: 07-15-2023 Patient encounter procedure [facility]-Laboratory, Phy Office 3rd Flr Start: 06-24-2023 End: 06-24-2023 ambulatory [facility] Work Phone: Start: 06-24-2023 End: 06-24-2023 Patient encounter procedure [facility]-Radiology, [facility] Work Phone: Start: 06-21-2023 End: 06-21-2023 ambulatory [facility] Work Phone: Start: 06-21-2023 End: 06-21-2023 Patient encounter procedure [facility]-MRI - [facility] Work Phone: Start: 06-02-2023 End: 06-02-2023 ambulatory [facility] Work Phone: Start: 06-02-2023 End: 06-02-2023 Patient encounter procedure [facility]-MRI - [facility] Work Phone: Start: 05-03-2023 End: 05-03-2023 ambulatory [facility] Work Phone: Start: 05-03-2023 End: 05-03-2023 Patient encounter procedure [facility]-Laboratory, Phy Office 3rd Flr Start: 04-25-2023 End: 04-25-2023 Emergency department patient visit [facility]-Emergency Department Work Phone: Start: 04-15-2023 End: 04-15-2023 ambulatory [facility] Work Phone: Start: 04-15-2023 End: 04-15-2023 Patient encounter procedure [facility]-Laboratory, Phy Office 3rd Flr Start: 04-01-2023 End: 04-01-2023 ambulatory [facility] Work Phone: Start: 04-01-2023 End: 04-01-2023 Patient encounter procedure [facility]-Pulmonary Services/Neurology Work Phone: Start: 01-07-2023 End: 01-07-2023 ambulatory [facility] Work Phone: Start: 01-07-2023 End: 01-07-2023 Patient encounter procedure [facility]-Laboratory, Phy Office 3rd Flr Start: 11-05-2022 Telephone encounter Neftaly Coker MD Work Phone: Pain Management Comment on above: Patient Update Start: 10-20-2022 Refill Nelsy Hidalgooskar coello PA-C Work Phone: Pain Management Comment on above: Refill Request Start: 10-18-2022 Refill Nelsy Munoz Reji coello PA-C Work Phone: Pain Management Comment on above: Refill Request Start: 09-11-2022 End: 09-11-2022 ambulatory NELSY CHAUDHARI Facility:[id number] Start: 08-12-2022 Refill Nelsy Munoz Reji coello PA-C Work Phone: Pain Management Comment on above: Refill Request Start: 07-27-2022 Telephone encounter Nelsy Tammy Watson ADAMS-C Work Phone: Pain Management Comment on above: UDS/ patch count Start: 07-23-2022 End: 07-23-2022 ambulatory NELSY CHAUDHARI Facility:[id number] Start: 07-23-2022 End: 07-23-2022 ambulatory Nelsy Chaudhari PA-C Work Phone: Pain Management Comment on above: Fibromyalgia (Primar y Dx); Degeneration of intervertebral disc of lumbar region; Lumbar spondylosis; Degeneration of cervical intervertebral disc; Sacroiliitis (HCC); Chronic knee pain, unspecified laterality Start: 07-23-2022 End: 07-23-2022 Telemedicine consultation with patient Nelsy Chaudhari ANGIE-C Work Phone: [facility] Start: 07-15-2022 Refill Nelsy Hidalgot oumou PA-C Work Phone: Pain Management Comment on above: Refill Request Start: 06-16-2022 Patient encounter procedure [facility]-Pulmonary Services/Neurology Start: 06-15-2022 End: 06-15-2022 ambulatory [facility] Work Phone: Start: 06-15-2022 End: 06-15-2022 Patient encounter procedure [facility]-Laboratory, Phy Office 3rd Flr Start: 06-11-2022 End: 06-11-2022 ambulatory Nelsy MINC Work Phone: Pain Management Comment on above: 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); Fibromyalgia; Degeneration of intervertebral disc of lumbar region; Lumbar spondylosis; Sacroiliitis (HCC); Chronic knee pain, unspecified laterality Start: 06-11-2022 End: 06-11-2022 Telemedicine consultation with patient Nelsy Chaudhari PA-C Work Phone: [facility] Start: 05-14-2022 Refill Nelsy ADAMS-C Work Phone: Pain Management Comment on above: Refill Request Start: 05-04-2022 End: 05-04-2022 ambulatory Nelsy Chaudhari PA-C Work Phone: Pain Management Comment on above: Fibromyalgia (Primar y Dx); Degeneration of intervertebral disc of lumbar region; Lumbar spondylosis; Sacroiliitis (HCC); Degeneration of intervertebral disc of cervical region; Chronic knee pain, unspecified laterality Start: 05-04-2022 End: 05-04-2022 Telemedicine consultation with patient Nelsy Chaudhari PA-C Work Phone: [facility] Start: 04-20-2022 Refill Nelsy ADAMS-C Work Phone: Pain Management Comment on above: Refill Request Start: 04-15-2022 Refill Nelsy ADAMS-C Work Phone: Pain Management Comment on above: Refill Request Start: 04-07-2022 End: 04-07-2022 ambulatory [facility] Work Phone: Start: 04-07-2022 End: 04-07-2022 Patient encounter procedure [facility], y Office 3rd Flr Start: 03-23-2022 End: 03-23-2022 ambulatory NELSY CHAUDHARI Facility:[id number] Start: 03-23-2022 End: 03-23-2022 Patient encounter procedure Nelsy Chaudhari PA-C Work Phone: Pain Management Comment on above: Fibromyalgia (Primar y Dx); Degeneration of intervertebral disc of lumbar region; Lumbar spondylosis; Sacroiliitis (HCC); Degeneration of intervertebral disc of cervical region; Chronic knee pain, unspecified laterality Start: 2022 Refill Nelsy coello PA-C Work Phone: Pain Management Comment on above: Refill Request Start: 02-09-2022 End: 02-09-[address] [facility]:[id number] Start: 01-06-2022 Refill Nelsy coello PA-C Work Phone: Pain Management Comment on above: Refill Request Start: 12-29-2021 End: 12-29-2021 Refill Nelsy Chaudhari PA-C Work Phone: Pain Management Comment on above: Refill Request; Refi ll Request Start: 12-25-2021 End: 12-26-2021 Evaluation and management of inpatient CARMEN Wang FERNANDOOSMAN [employer] [facility] Start: 12-11-2021 End: 12-11-2021 Emergency department patient visit BALDOMERO HEAD DO [facility] Start: 11-28-2021 Refill Neftaly Tyson MD Work Phone: Pain Management Comment on above: Refill Request Start: 10-20-2021 End: 10-20-2021 Emergency department patient visit KRYSTAL VALLADARES MD [facility] Start: 10-14-2021 End: 10-14-2021 Subsequent hospital visit by physician Nelsy Chaudhari PA-C Work Phone: [facility] Comment on above: FOLLOW UP Start: 09-01-2021 End: 09-01-2021 Subsequent hospital visit by physician Nelsy Chaudhari PA-C Work Phone: [facility] Comment on above: FOLLOW UP Start: 08-01-2021 End: 08-01-2021 Emergency department patient visit TOMMY WOLFF DO [facility] Start: 09-18-2016 End: 09-18-2016 ambulatory YOBANY SNELL [facility] Procedures Date Procedure Procedure Detail Performing Clinician Start: 11-18-2024 X-ray of foot, three or more views Jaswinder Muñiz MD Work Phone: Start: 10-28-2024 CT of abdomen and pe [...] [place] Work Phone: Start: 02-21-2013 Mammography Nelsy Rutherford ith [employer] Work Phone: Start: 01-15-2010 Colonoscopy Nelsy Rutherford [employer] Work Phone: Start: 11-18-1992 section ESTEPHANIE WOLFF DO Colonoscopy TOMMY Sequeira DO Decompression of med spenser nerve TOMMY WOLFF DO Comment on above: Right H/O: surgery Hx of explorator y laparotomy Influenza Types A,B Direct FA (RK) Respiratory syncytia l virus antigen assay Plan of Treatment Date Care Activity Detail Author Start: 10-28-2024 [facility] Start: 06-24-2023 Procedure [facility] Start: 04-25-2023 [facility] Start: 04-15-2023 Procedure [facility] Start: 01-15-2023 Influenza vaccination INFLUENZA (Season Ended) [facility] Start: 01-15-2022 Influenza vaccination [facility] Start: 07-30-2021 COVID-19 VACCINE (4 - Booster for Moderna series) COVID-19 VACCINE (4 - Booster for Moderna series) [facility] Start: 05-27-2021 COVID-19 VACCINE (4 - Booster for Moderna series) COVID-19 VACCINE (4 - Booster for Moderna series) [facility] Start: 02-14-2018 DIABETES SCREEN DIABETES SCREEN [facility] Start: 01-27-2017 End: 01-27-2017 Appointment Appointment [facility] [employer] Work Phone: Start: 01-11-2017 End: 01-11-2017 Diagnostic colonoscopy Colonoscopy [facility] [employer] Work Phone: Start: 01-11-2017 End: 01-12-2017 Follow Up Appt Other Follow Up Appt Other [facility] [employer] Work Phone: Start: 12-10-2016 HPV TESTING HPV TESTING [facility] Start: 12-10-2016 PAP TESTING PAP TESTING [facility] Start: 04-03-2015 End: 04-03-2015 Mri jnt of lwr extre w/o dye MRI Joint Lower Extremity [facility] [employer] Work Phone: Start: 04-03-2015 End: 04-03-2015 X-ray exam, knee, 4 or more X-Ray, Knee [facility] [employer] Work Phone: Start: 03-06-2014 LIPID SCREEN LIPID SCREEN [facility] Start: 02-21-2014 Mammography MAMMOGRAM [facility] Start: 01-15-2011 Colonoscopy COLONOSCOPY [facility] Start: 01-15-2011 COLORECTAL CANCER SCREENING COLORECTAL CANCER SCREENING [facility] Start: 2009 Influenza vaccination LUNG CANCER SCREENING [facility] Start: 2009 SHINGRIX VACCINE (1 of 2) SHINGRIX VACCINE (1 of 2) [facility] Start: 2004 COLOGUARD (FIT-DNA) COLOGUARD (FIT-DNA) [facility] Start: [address] COLONOGRAPHY [facility] Start: 2004 FECAL OCCULT BLOOD FECAL OCCULT BLOOD [facility] Start: 2004 SIGMOIDOSCOPY SIGMOIDOSCOPY [facility] Start: 02-15-2002 Urine microalbumin profile DTAP,TDAP,TD (1 - Tdap) [facility] Start: 1977 ANNUAL PCP TEAM CHRONIC DISEASE VISIT ANNUAL PCP TEAM CHRONIC DISEASE VISIT [facility] Start: 1977 HEPATITIS C SCREENING HEPATITIS C SCREENING [facility] Start: 1977 HIV SCREENING HIV SCREENING [facility] Start: 1977 SPIROMETRY SPIROMETRY [facility] Start: 1965 PNEUMOCOCCAL (1 - PCV) PNEUMOCOCCAL (1 - PCV) [facility] Start: 1964 COVID-19 VACCINE (#1) COVID-19 VACCINE (#1) [facility] Start: 1964 COVID-19 VACCINE (1) COVID-19 VACCINE (1) [facility] Start: 1959 COVID-19 VACCINE (#1) COVID-19 VACCINE (#1) [facility] Patient Education [facility] Work Phone: Patient referral [facility] Work Phone: [facility] Immunizations Immunization Date Immunization Notes Care Provider Fa cili 04-01-2021 influenza virus vacc ine, unspecified formulation CARMEN BOYD [employer] [facility] 04-01-2021 pneumococcal polysaccharide vaccine, 23 valent CARMEN BOYD [employer] [facility] 04-01-2021 SARS-CoV-2 (COVID-19 ) mRNA-1273 vaccine CARMEN OLIVER [employer]-END [employer] [facility] 11-15-2020 SARS-CoV-2 (COVID-19 ) mRNA-1273 vaccine CARMEN OLIVER [employer]-END FRAZER [facility] 10-08-2020 SARS-CoV-2 (COVID-19 ) mRNA-1273 vaccine CARMEN OLIVER [employer]-END FRAZER [facility] 05-29-2020 influenza virus vacc ine, unspecified formulation CARMEN BOYD [employer]-END FRAZER [facility] 05-29-2020 pneumococcal polysaccharide vaccine, 23 valent CARMEN OLIVER [employer]-END FRAZER [facility] 02-16-2018 influenza virus vacc ine, unspecified formulation CARMEN KINGOSMAN [employer]-END FRAZER [facility] 06-10-2017 influenza virus vacc ine, unspecified formulation CARMEN KINGOSMAN [employer]-END FRAZER [facility] 02-14-2009 influenza virus vacc ine, unspecified formulation Nelsy Chaudhari PA-C Work Phone: [facility] Work Phone: 04-06-2007 influenza virus vacc ine, unspecified formulation Nelsy hCaudhari PA-C Work Phone: [facility] Work Phone: 02-14-2002 tetanus and diphther ia toxoids, adsorbed, preservative free, for adult use (2 Lf of tetanus toxoid and 2 Lf of diphtheria toxoid) Nelsy Chaudhari PA-C Work Phone: [facility] Work Phone: 02-14-2002 tetanus and diphther ia toxoids, adsorbed, preservative free, for adult use (5 Lf of tetanus toxoid and 2 Lf of diphtheria toxoid) TOMMY WOLFF DO [facility] Payers Date Payer Category Payer Self-pay [id number] 2021 Medicaid [id number] 2021 Medicaid MEDICAID [facility] MEDICAID [id number] 2021-Present [phone] [address] [place] [address] Medicaid [id number] 2021 Medicaid [id number] 2020 Medicare HUMANA MEDICARE HUMANA GOLD PLUS [id number] 2020-Present [phone] [address] [address] [place] [id number] HMO [id number] 2020 Medicare HUMANA MEDICARE HUMANA GOLD PLUS [id number] 2020-Present [phone] [address] [address] [place] [address] HMO [id number] 2020 Private Health Insurance [id number] 2000 Medicare MEDICARE MEDICAR E A AND B [id number] 2000-Present [phone] [place] [address] Medicare [id number] 2000 Medicare MEDICARE PART A B [id number] Unknown [id number] 62 Unknown [id number] 62 Unknown [id number] 62 Unknown [id number] 62 Unknown [id number] 62 Unknown [id number] 62 Unknown [id number] 62 Unknown [id number] 62 Unknown [id number] 62 Unknown [id number] 62 Unknown [id number] [id number] 62 Unknown [id number] 62 Unknown [id number] 62 Social History Date Type Detail Facility Start: 03-29-2019 Light tobacco smoker (finding) [facility] Start: 1960 Sex Assigned At Female A [facility] Start: 12-29-2021 End: 11-18-2024 Tobacco smoking status NHIS Smokes tobacco daily [facility] History of tobacco use Cigarette Smoker [facility] Start: 02-20-2015 End: 09-11-2022 Alcohol intake Current non-drinker of alcohol (finding) [facility] Start: 1960 Sex Assigned At Not on file [facility] Start: 10-04-2021 End: 03-23-2022 Exposure to SARS-CoV-2 (event) Not sure [facility] Start: 12-25-2021 Tobacco smoking status Heavy t obacco smoker (finding) [facility] Start: 12-29-2021 End: 07-23-2022 Cigarettes smoked current (pack per day) - Reported 1 [facility] Start: 12-29-2021 End: 07-23-2022 Tobacco use and exposure Smokeless tobacco non-user [facility] Start: 09-06-2020 End: 04-25-2023 Tobacco smoking status NHIS Unknown if ever smoked [facility] Start: 09-06-2020 Cigarettes [facility] Start: 08-01-2024 Sex Female (finding) [facility] Functional Status Date Assessment Result Facility 12-26-2021 Functional Status bilateral knee high [facility] 12-26-[address] [facility] 12-26-[address] [facility] 12-26-[address] [facility] 12-26-[address] [facility] 12-26-2021 Functional Status Demonstrates C orrect Call Light Use Yes [facility] 12-25-2021 Functional Status Moderate assistance [facility] 12-25-2021 Functional Status Dinner Percent 20 [facility] 12-25-[address] [facility] 12-25-2021 Functional Status Sensory Deficits None [facility] 12-25-2021 Functional Status Environmental Safety Implemented Adequate room lighting, Bed in low position, Call device within reach [facility] 12-25-[address] [facility] 12-11-2021 Functional Status Ambulating in guerrero, Ambulating in room, Awake [facility] 12-11-2021 Functional Status Standard Safet y ID band on, Allergy Band on, Call device within reach, Bed in low position, Wheels locked, Upper/Half-Length side-rails up, personal items within reach, Visitor at bedside [facility] 10-20-2021 Functional Status Standard Safet y ID band on, Allergy Band on, Call device within reach, Bed in low position, Wheels locked, Upper/Half-Length side-rails up, Bedside Cart Locked, Safety level maintained [facility] Mental Status Date Assessment Result Facility 06-24-2023 Cognitive function Awake;Alert;Appropriat e [facility] Work Phone: 12-26-2021 Mental Status Oriented x 4 [facility] 12-26-2021 Mental Status [facility] 12-26-2021 Mental Status [facility] 12-26-2021 Mental Status [facility] 12-11-2021 Mental Status Orientation Oriented x 4 [facility] 12-11-2021 Mental Status [facility] 10-20-2021 Mental Status Orientation Oriented x 4 [facility] Clinical Notes 05-19-2007 to 11-18-2024 Note Date & Type Note Facility 11-18-2024 Discharge summary [facility] 11-18-2024 Radiology Diagnostic study note [facility] [address] [place] [address] Foot min 3 Views MR#: [id number] Acct: [id number] Name: NAVIN AUGUST I Rep #: [id number] : 1960 F 64 From: Noe Khan MD PCP: Dr. Jaswinder Muñiz MD Status: REG ER Study:Foot min 3 Views Date of Exam: 10/08 Exam# [id number] Ordering Dr: Norman Gilbert MD PROCEDURE: FOOT MIN 3 VIEWS 11/18/2024 REASON FOR EXAM: INJURY/PAIN TECHNIQUE: FOOT MIN 3 VIEWS COMPARISON: None. FINDINGS: There is a comminuted fracture of the shaft of the 4th metatarsal. There is a nondisplaced transverse fracture of the shaft of the 3rd metatarsal. There is a possible fracture of the base of the shaft of the 2nd metatarsal. No other fractures are evident. There are no significant joint space abnormalities of the foot. Thereis soft tissue swelling over the dorsum of the foot. RAD/Foot min 3 Views IMPRESSION: Fractures of the 3rd and 4th metatarsal shafts, as described. Possible fractureof the 2nd metatarsal. Reading Location: [id number] CC: Dr. Jaswinder Muñiz MD; Dr. Benjamin Gilbert MD ~ [employer] Sergeant: Signed [facility] Work Phone: 10-28-2024 Discharge summary [facility] 10-28-2024 Radiology Diagnostic study note [facility] [address] [place] [address] Abdomen/Pelvis without Cont MR#: [id number] Acct: [id number] Name: NAVIN AUGUST I Rep #: [id number] : 1960 F 64 From: Odalis Lara MD PCP: Dr. Jaswinder Muñiz MD Status: REG ER Study:Abdomen/Pelvis without Cont Date of Exa m: 10/28/24 Exam# [id number] Ordering Dr: Erlin Perla MD PROCEDURE: ABDOMEN/PELVIS [...] IMPRESSION: No acute abdominopelvic finding. Reading Location: [id number] CC: Dr. Jaswinder Muñiz MD; Dr. Abdirizak Perla MD ~ [employer] Sergeant: Signed [facility] 10-28-2024 Discharge summary Note Date/Time October 28, 2024 9:31pm [facility] Medical Records Department [address] [place] [address] Emergency Department Summary 10/28/24 MR#: [id number] Acct: [id number] Name: NAVIN AUGUST I Rep #:[id number] : 1960 64 From: Abdirizak Perla [...] % (Auto) 61.1 Lymph % (Auto) 28.2 [place] % (Auto) 7.1 Eos % (Auto) 2.3 [...] Clarity Clear Urine pH 6.5 Ur Specific [place] 1.010 Urine Protein Negative Urine Glucose (UA) [...] IMPRESSION: No acute abdominopelvic finding. Reading Location: [facility] Discharge Plan Triage Chief Complaint: Flank Pain [...] with your doctor if not. Print Language: Afghan Disposition Disposition: Home, Self Care What to do if you have Problems For any increased pain, shortness of breath, bleeding, nausea or vomiting, chestpain, or any unexpected problems, contact your Primary Care Provider. Call [facility] ([phone]) or report to the closest Emergency Room. Call 911 if necessary. 10/28/242130 <Electronically signed by Abdirizak Perla MD> Cosigner Signature (if applicable): CC: Dr. Jaswinder Muñiz MD ~ Signed [facility] Work Phone: [phone]) 190-294705-17-2025 Radiology Diagnostic study note [facility] [address] [place] [address] Lung Screening MR#: [id number] Acct: [id number] Name: NAVIN AUGUST I Rep #: [id number] : 1960 F 64 From: Renee Mcknight MD PCP: Dr. Jaswinder Muñiz MD Status: REG CL I Study:Low Dose CT Lung Screening Date of Exam : 09/29/24 Exam# [id number] Ordering Dr: Aury Muñiz MD EXAM: CT [...] in 12 months is recommended. Reading Location: [id number] CC: Dr. Jaswinder Muñiz MD ~ [employer] Sergeant: Signed [facility]06-22-2023 Miscellaneous Notes* Telephone Encounter - [...] future Liliana Graham RN documented [facility] Miscellaneous Notes* Telephone Encounter - Nelsy [...] advise. Liliana Graham RN documented in this encounterMer[facility]06-05-2023 Miscellaneous Notes* Telephone Encounter - Nelsy [...] advise. Liliana Graham RN documented in this encounterMer[facility]04-28-2023 NoteHNO ID: [id number] Author: Nelsy Chaudhari PA-C Service: ? Author Type: Physician Unarmed Security Guard Type: Progress Notes Filed: 09/11/2022 2:24 PM Note Text: This note was created using [employer]. Subjective Navin August is a 62 year [...] Follow-up in office in (more content not included)...[facility] 08-12-2022 Miscellaneous Notes* Telephone Encounter - Nelsy Chaudhari PA-C - 08/12/2022 3:01 PM EDT The following approved medication requests have been transmitted electronically. Requested Prescriptions Pending Prescriptions Disp Refills fentaNYL 37.5 mcg/hour pt72 15 Patch 0 Sig: Apply 1 Patch as directed every 48 hours for 30 days. Do not start before August 18, 2022. Nelsy Chaudhari PA-C documented in this encounterMer[facility]03-13-2023 Miscellaneous Notes* Telephone Encounter - Liliana Graham RN - 07/27/2022 1:56 PM EDT Arrived for UDS Completed In addition, brought fentanyl 50 mcg patches for count ( see AG SPINE PAIN COUNT) Count appropriate Liliana Graham RN July 27, 2022 2:00 PM documented in this encounterMer[facility]03-09-2023 NoteHNO ID: [id number] Author: Nelsy Chaudhari PA-C Service: ? Author Type: Physician Unarmed Security Guard Type: Progress Notes Filed: 07/23/2022 2:48 PM Note Text: I have communicated my name and active licensure. The patient's identity and physical location were verified at the time of this visit. Either the patient or their legal wholesale representative has been informed of the risks and benefits of -- and alternatives to -- treatment through a remote evaluation and consents to proceed with the evaluation remotely. This note was created using [employer]oPedic[employer]. Subjective Navin August is a 62 year [...] like a new order (more content not included)...[facility] 07-23-2022 Instructions* Patient Instructions* Nelsy [...] seen at this time. documented in this encounterMercy Health [facility]03-09-2023 History of Present illness Narrative* Nelsy Chaudhari PA-C - 07/23/2022 2:15 PM EST I have communicated my name and active licensure. The patient's identity and physical location wereverified at the time of this visit. Either the patient or their legal wholesale representative has been informed of the risks and benefits of -- and alternatives to -- treatment through a remote evaluation andconsents to proceed with the evaluation remotely. This note was created using [employer]. Subjective Navin August is a 62 year [...] G89.29 Nelsy Chaudhari PA-C documented in this encounterMer[facility]03-01-2023 Miscellaneous Notes* Telephone Encounter - Nelsy [...] advise. Liliana Graham RN documented in this encounterMercy Health [facility]01-26-2023 NoteHNO ID: [id number] Author: Nelsy Chaudhari PA-C Service: ? Author Type: Physician Unarmed Security Guard Type: Progress Notes Filed: 06/11/2022 2:22 PM Note Text: This note was created using MSIriter. Subjective Navin August is a 62 year [...] [facility]01[facility]26[facility]23 Instructions* Patient Instructions* Nelsy Chaudhari PA-C - 06/11/2022 2:13 PM [...] seen at this time. documented in this encounterMercy Health [facility]01-26-2023 History of Present illness Narrative* Nelsy Chaudhari PA-C - 06/11/2022 2:00 PM EST This note was created using [employer]. Subjective Navin August is a 62 year [...] night, and leg pain with exertion. Objective [facility] 01/12/2008 Physical Exam Vitals and nursing note [...] G89.29 Nelsy Chaudhari PA-C documented in this encounterMercy [facility]12-29-2022 Miscellaneous Notes* Telephone Encounter - Nelsy [...] advise. Liliana Graham RN documented in this encounterMercy Health [facility]12-19-2022 NoteHNO ID: [id number] Author: Nelsy Chaudhari PA-C Service: ? Author Type: Physician Unarmed Security Guard Type: Progress Notes Filed: 05/04/2022 3:11 PM Note Text: This note was created using [employer]. Subjective Navin August is a 62 year [...] M25.569, G89.29 Nelsy Rutherford (more content not included)...[facility]12-19-2022 Instructions* Patient Instructions* Nelsy Chaudhari [...] seen at this time. documented in this encounterMer[facility]12-19-2022 History of Present illness Narrative* Nelsy Chaudhari PA-C - 05/04/2022 2:36 PM EST This note was created using [employer]. Subjective Navin August is a 62 year [...] G89.29 Nelsy Chaudhari PA-C documented in this encounterMer[facility]12-05-2022 Miscellaneous Notes* Telephone Encounter - Nelsy [...] advise. Liliana Graham RN documented in this encounterMercy [facility]11-30-2022 Miscellaneous Notes* Telephone Encounter - Nelsy [...] advise. Liliana Graham RN documented in this encounterMer[facility]11-07-2022 NoteHNO ID: [id number] Author: Nelsy Chaudhari PA-C Service: ? Author Type: Physician Unarmed Security Guard Type: Progress Notes Filed: 03/23/2022 3:10 PM Note Text: This note was created using [employer] of [employer]. Subjective Navin August is a 62 year [...] ICD9: 720.2, ICD10: M46.1 (more content not included)...[facility]11-07-2022 Instructions* Patient Instructions* Nelsy Chaudhari [...] seen at this time. documented in this encounterMer[facility]11-07-2022 History of Present illness Narrative* Nelsy Chaudhari PA-C - 03/23/2022 2:53 PM EST This note was created using [employer]. Subjective Navin August is a 62 year [...] G89.29 Nelsy Chaudhari PA-C documented in this encounterMercy Health [facility]11-03-2022 Miscellaneous Notes* Telephone Encounter - Nelsy [...] 2:55 PM EDT Not available at [facility] [place] Liliana Graham RN 2022 2:56 PM Requested Prescriptions Pending Prescriptions Disp Refills fentaNYL (DURAGESIC) 50 mcg/hr 15 Patch 0 Sig: APPLY 1 PATCH TO SKIN EVERY OTHER DAY DIRECTED Please review and advise. Liliana Graham RN documented in this encounterMercy Health [facility]09-26-2022 NoteHNO ID: [id number] Author: Nelsy Chaudhari PA-C Service: ? Author Type: Physician Unarmed Security Guard Type: Progress Notes Filed: 02/09/2022 3:27 PM Note Text: This note was created using MSIriter. Subjective Navin August is a 61 year [...] Sacroiliitis (HCC) - IC (more content not included)...[facility] 01-06-2022 Miscellaneous Notes* Telephone Encounter [...] advise. Liliana Graham RN documented in this encounterMercy Health [facility]08-16-2022 Miscellaneous Notes* Telephone Encounter - Nelsy [...] DIRECTED Liliana Graham RN documented in this encounterMercy Health [facility]08-15-2022 NoteHNO ID: [id number] Author: Neftaly Coker MD Service: ? Author Type: Physician Type: Progress Notes Filed: 12/30/2021 3:33 PM Note Text: This note was created using MSIriter. Subjective Navin August is a 61 year [...] and may contain minor errors. Neftaly Coker [facility]08-12-2022 Nurse Progress note Patient informed of discharge. [...] want your help. [facility] Redirected patient to stay on floor until daughter arrived. Daughter arrived a few minutes later in elevator with security and discharge paperwork reviewed with daughter. Patient and her daughter left ambulatory via elevator. Digitally Signed by Stephanie Hidalgo RN on 12/26/2021 03:25 PM [facility]08-12-2022 Note Discharge Instructions Thank you for allowing [facility] to assist you with your healthcare needs. The following is importantdischarge information regarding your hospital visit. Your Care Team Carmen Boyd [employer] Your Diagnosis Hypo-osmolality and hyponatremia Bipolar disease, chronic Asthma Bronchitis, chronic Hypothyroid Fibromyalgia Anxiety Medical screening exam What to do next Follow Up Appointments Follow Up with WILL SNELL MD When Within 5 to 7 days Why: Message left for PCP office. Recheck BMP in 1 week. Where: [facility] [address] [place] [address]- The Following Activity and Diet Have Been [...] hours Fibromyalgia Duration: 4 Days Pickup at [id number] Unchanged acetaminophen (acetaminophen 325 mg oral capsule) [...] for muscle spasm 11 AM Pharmacy Information [id number]: [address] [place], [place] [phone] Please take this list to your next [...] Document Reviewed: 01/13/2012 ExitCare Patient Information 2015 [employer]. This information is not intended to replace advicegiven to you by your health care provider. Make sure you discuss any questions you have with your health care provider. Additional Information VACCINATE! IT SAVES LIVES! Members of the community who have not yet received the COVID-19 vaccine and would like to receive it can visit one of [facility] vaccine clinics. There are many vaccine clinic locations within the [facility]. For locations and available times, please visit [email or web address] It is important to note that some COVID mobile vaccine clinics are held outdoors and may be canceled in rainy or stormy conditions. To learn more about pediatric vaccinations (ages 5-11), we invite you to visit the [facility] webpage. https://www.[email or web address]/pages/[email or web address]-Engtg-Dpcktddubky-Thawjhpixp-Wjzcz-Hem stions.htmlTo learn more about the COVID-19 vaccine, we invite you to visit the [employer] website for a list of frequently asked questions. [email or web address] _Asked-Questions.pdf [facility] Patient Portal Access Instructions: Stay connected with your healthcare team and access your personal medical information anytime with the [facility] Patient Portal.If you would like a full copy of your medical records, please contact the [facility] Medical Records Department, Wednesday through Wednesday between 8a.m. and 4:30p.m. Please follow the directions below to access the portal: 1.Access the email account you provided upon registration to the hospital.2.Look for an invitation email from [facility].3.Open the email and access the invitation link: Accept Invitation to [facility]4.Fill in the required renner to create your account. Sign into [email or web address] with your username and password that you [...] you will allow to register on the [facility] Patient Portal for access to your information. You can also access the [facility] Patient Portal on the Naut[employer] livia. Simply click on Health Records under Manpacks and then click on the [employer] logo. HOW TO SAFELY DISPOSE OF PRESCRIPTION [...] Call your local pharmacy or go to [email or web address] to find one close to you.3.Make use of household items: Use cat litter or old coffee grounds to dispose medications if other options arenot available. Mix your drugs with these household products, seal them in an airtight container andthrow it into the garbage. Call [facility]: [phone] to be sure your drugs can be [...] CHART COPY. Signatures Patient Education Materials Hyponatremia, Spnj-op-Ldsb Medication Leaflets My discharge plan and instructions have been reviewed and explained to me and I,NAVIN AUGUST understand my current condition and have read and understand these discharge instructions. I have received a written copy of the plan/instructions. If I have questions, I am aware that I should contact my doctor. 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 This information is not intended to replace advicegiven to you by your health care provider. Make sure you discuss any questions you have with your health care provider. Follow Up Care 12/25/2021 09:58:36 With:WILL SNELL MD Address: [facility] [address] [place] [address] [address] [place] [address]- When:5 to 7 days Comments:Message left for PCP office. Recheck BMP in 1 week. [facility] 08-12-2022 Nurse Progress note Patient requesting COVID test. Spoke to [employer] and test was ordered. When patient was told how long the test would take she refused. Patient stated, I'm not waiting that long, I refuse. Digitally Signed by Katheryn Delgado LPN on 12/26/2021 01:36 PM [facility]08-11-2022 Note Date of Service 12/25/2021 Chief Complaint States that she is concerned that she has ammonia toxicity. History of Present Illness Patient is a 61-year-old female, who follows with Dr. Snell with a past medical history significant for bipolar disorder, asthma, fibromyalgia, and hypothyroidism, presents to [facility] emergency department with the chief complaint [...] Intubate, Constant Order Digitally Signed by CARMEN BODY APRN-DONATO on 12/25/2021 04:34 PM [place] [address]-11-2022 Evaluation + Plan noteExtracted from: Title:History and Physical Author:FERNANDOCARMEN BREWER Kathleen [employer]END [employer]RAZER Date:12/25/21 1. Hypo-osmolality and hypon atremia Acute [...] Tests Pending * COVID-19 Only (AO) 12/26/21 [facility] 08-11-2022 Note ORIGINAL EXAMINATION: CT OF THE [...] Date: 12/25/2021 12:16:50 PM Ordering Provider: KRYSTAL [address]11-2022 Note ORIGINAL EXAMINATION: ONE XRAY VIEW [...] Date: 12/25/2021 12:13:51 PM Ordering Provider: KRYSTAL MU[address]11-2022 Note ORIGINAL EXAMINATION: ONE XRAY VIEW [...] Date: 12/25/2021 12:13:51 PM Ordering Provider: KRYSTAL [facility]08-11-2022 Note ORIGINAL EXAMINATION: CT OF THE HEAD [...] Date: 12/25/2021 12:16:50 PM Ordering Provider: KRYSTAL [facility]07-28-2022 Hospital Discharge instructions Patient Education 12/11/2021 20:39:48 [...] body part Frequent bruising for unknown reasons [id number] The [employer]. [address] [place] [address]. All rights reserved. This information is not intended as a substitute for professional medical care. Always follow yourhealthcare professional's instructions. Follow Up Care 12/11/2021 19:44:25 With:WILL SNELL MD Address: [facility]/[address] [place] [address]- When:2-4 days [facility] 07-28-2022 Note Discharge Instructions Thank you for allowing [facility] to assist you with your healthcare needs. The following is importantdischarge information regarding your hospital visit. Diagnosis from Today's Visit Arm injury - Minor What to Do Next Instructions from Your Care Team No qualifying data available. Post Acute Orders No qualifying data available. You Need to Schedule the Following Appointments Follow Up with WILL SNELL MD When Within 2-4 days Where: [facility]/[address] [place] [address]- Allergies Levaquin (Tongue swelling) Neurontin [...] body part Frequent bruising for unknown reasons [id number] [employer]. [address] [place] [address]. All rights reserved. This information is not intended as a substitute for professional medical care. Always follow yourhealthcare professional's instructions. Additional Information VACCINATE! IT SAVES LIVES! Members of the community who have not yet received the COVID-19 vaccine and would like to receive it can visit one of [facility] vaccine clinics. There are many vaccine clinic locations within the [facility]. For locations and available times, please visit [email or web address]. It is important to note that some COVID mobile vaccine clinics are held outdoors and may be canceled in rainy orstormy conditions. To learn more about pediatric vaccinations (ages 5-11), we invite you to visit the [facility] webpage. https://www.[email or web address].org/pages/5201-Qidvv-Diavgthhjje-Zmobdvjedz-Mzwno-Gps stions.htmlTo learn more about the COVID-19 vaccine, we invite you to visit the [facility] website for a list of frequently asked questions. [email or web address]-[email or web address] _Asked-Questions.pdf [facility] Patient Portal Access Instructions: Stay connected with your healthcare team and access your personal medical information anytime with the [facility] Patient Portal. If you would like a full copy of your medical records please contact the [facility] Medical Records Department Wednesday through Wednesday between 8a.m. and 4:30p.m. Please follow the directions below to access the portal: 1.Access the email account you provided upon registration to the [facility].2.Look for an invitation email from [facility].3.Open the email and access the invitation link: Accept Invitation to [facility]4.Fill in the required renner to create your account. Sign into [email or web address] with your username and password that you [...] you will allow to register on the [facility] Patient Portal for access to your information. You can also access the [facility] Patient Portal on the [employer]autit livia. Simply click on Health Records under Business [employer]terData and then click on the [employer] logo. [...] Call your local pharmacy or go to http://bit.Vouchr/0X4Ts5y to find one close to you.3.Make use of household items: Use cat litter or old coffee grounds to dispose medications if other options arenot available. Mix your drugs with these household products, seal them in an airtight container andthrow it into the garbage. Call [facility]: [phone] to be sure your drugs can be [...] aware that I should contact my doctor. 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: Date/Time: Relationship to Patient: Witness Name/Signature: Date/Time: [facility]07-28-2022 Note ORIGINAL EXAMINATION: TWO XRAY VIEWS OF [...] Sign Date: 12/11/2021 8:34:16 PM Ordering Provider: [place] [address]-28-2022 Note ORIGINAL EXAMINATION: TWO XRAY VIEWS OF [...] Sign Date: 12/11/2021 8:34:16 PM Ordering Provider: [place] [address]-15-2022 Miscellaneous Notes* Telephone Encounter - Liliana Graham RN - 11/28/2021 2:33 PM EDT Patient phones requesting refills as follows: Pending Prescriptions Disp Refills FENTANYL 50 MCG/HR TRANSDERMAL PATCH 15 Patch 0 Sig: APPLY 1 PATCH TO SKIN EVERY OTHER DAY DIRECTED Do not start before November 30, 2021. JOAQUIN Class: C-II BRENDA: No Please review and advise. Liliana Graham [facility] Miscellaneous Notes* Telephone Encounter - Liliana [...] advise. Liliana Graham RN [facility] Discharge instructions Patient Education 10/20/2021 [...] foods again, start with small amounts of yrsj-ir-tgfedr, low- fat foods. These include apple sauce, [...] increase stomach acid. Don't use aspirin or brqe-uuh-xsdjaro pain and fever medicines, if possible. This includes nonsteroidal anti-inflammatory drugs (NSAIDs). Lose excess weight. Finish eating at least 2 hours before you go to bed or lie down. Raise the head of your bed. [phone] The [employer]. [address] [place] [address], [place] [address]. All rights reserved. This information is not intended as a substitute for professional medical care. Always follow yourhealthcare professional's instructions. Follow Up Care 10/20/2021 14:48:46 With:WILL SNELL MD Address: [facility] [place] [address] [place] [address]- When:2-4 days [facility] 06-06-2022 Evaluation + Plan note Diagnostic Tests Pending * Urinalysis 10/20/21 [facility] 2022 Hospital Discharge instructions Patient Education 08/01/2021 [...] teeth? Are you happy with your smile? [phone] The [employer]. [address] [place] [address], [place] [address]. All rights reserved. This information is not intended as a substitute for professional medical care. Always follow yourhealthcare professional's instructions. Follow Up Care 08/01/2021 21:40:00 With:WILL SNELL MD Address: [facility] [address] [place] [address] [address] [place] [address]- When:2-4 days [facility] 09-16-2015 History of Past illness Narrative* Problem Noted Date Resolved Date Chronic back pain 01/30/2015 12/29/2021 Pain in joint, lower leg 01/01/2008 022 Abnormal weight gain 05/19/2007 01/15/2010 Lumbago 12/29/2021 documented as of this encounter (statuses as of 12/30/2021) [facility] History of Past illness Narrative* Problem Noted Date Resolved Date Chronic back pain 01/30/2015 12/29/2021 Pain in joint, lower leg 01/01/2008 022 Abnormal weight gain 05/19/2007 01/15/2010 Lumbago 12/29/2021 documented as of this encounter (statuses as of 01/06/2022) [facility] History of Past illness Narrative* Problem Noted Date Resolved Date Chronic back pain 01/30/2015 12/29/2021 Pain in joint, lower leg 01/01/2008 022 Abnormal weight gain 05/19/2007 01/15/2010 Lumbago 12/29/2021 documented as of this encounter (statuses as of 2022) [facility] History of Past illness Narrative* Problem Noted Date Resolved Date Chronic back pain 01/30/2015 12/29/2021 Pain in joint, lower leg 01/01/2008 022 Abnormal weight gain 05/19/2007 01/15/2010 Lumbago 12/29/2021 documented as of this encounter (statuses as of 03/23/2022) [facility] History of Past illness Narrative* Problem Noted Date Resolved Date Chronic back pain 01/30/2015 12/29/2021 Pain in joint, lower leg 01/01/2008 022 Abnormal weight gain 05/19/2007 01/15/2010 Lumbago 12/29/2021 documented as of this encounter (statuses as of 04/15/2022) [address]16-2015 History of Past illness Narrative* Problem Noted Date Resolved Date Chronic back pain 01/30/2015 12/29/2021 Pain in joint, lower leg 01/01/2008 022 Abnormal weight gain 05/19/2007 01/15/2010 Lumbago 12/29/2021 documented as of this encounter (statuses as of 04/20/2022) [facility] History of Past illness Narrative* Problem Noted Date Resolved Date Chronic back pain 01/30/2015 12/29/2021 Pain in joint, lower leg 01/01/2008 022 Abnormal weight gain 05/19/2007 01/15/2010 Lumbago 12/29/2021 documented as of this encounter (statuses as of 05/04/2022) [facility] History of Past illness Narrative* Problem Noted Date Resolved Date Chronic back pain 01/30/2015 12/29/2021 Pain in joint, lower leg 01/01/2008 022 Abnormal weight gain 05/19/2007 01/15/2010 Lumbago 12/29/2021 documented as of this encounter (statuses as of 05/20/2022) [address]16-2015 History of Past illness Narrative* Problem Noted Date Resolved Date Chronic back pain 01/30/2015 12/29/2021 Pain in joint, lower leg 01/01/2008 022 Abnormal weight gain 05/19/2007 01/15/2010 Lumbago 12/29/2021 documented as of this encounter (statuses as of 06/11/2022) [address]16-2015 History of Past illness Narrative* Problem Noted Date Resolved Date Chronic back pain 01/30/2015 12/29/2021 Pain in joint, lower leg 01/01/2008 022 Abnormal weight gain 05/19/2007 01/15/2010 Lumbago 12/29/2021 documented as of this encounter (statuses as of 07/15/2022) [address]16-2015 History of Past illness Narrative* Problem Noted Date Resolved Date Chronic back pain 01/30/2015 12/29/2021 Pain in joint, lower leg 01/01/2008 022 Abnormal weight gain 05/19/2007 01/15/2010 Lumbago 12/29/2021 documented as of this encounter (statuses as of 07/23/2022) [address]16-2015 History of Past illness Narrative* Problem Noted Date Resolved Date Chronic back pain 01/30/2015 12/29/2021 Pain in joint, lower leg 01/01/2008 022 Abnormal weight gain 05/19/2007 01/15/2010 Lumbago 12/29/2021 documented as of this encounter (statuses as of 07/28/2022) [address]16-2015 History of Past illness Narrative* Problem Noted Date Resolved Date Chronic back pain 01/30/2015 12/29/2021 Pain in joint, lower leg 01/01/2008 022 Abnormal weight gain 05/19/2007 01/15/2010 Lumbago 12/29/2021 documented as of this encounter (statuses as of 08/12/2022) [address]16-2015 History of Past illness Narrative* Problem Noted Date Resolved Date Chronic back pain 01/30/2015 12/29/2021 Pain in joint, lower leg 01/01/2008 022 Abnormal weight gain 05/19/2007 01/15/2010 Lumbago 12/29/2021 documented as of this encounter (statuses as of 10/19/2022) [address]16-2015 History of Past illness Narrative* Problem Noted Date Resolved Date Chronic back pain 01/30/2015 12/29/2021 Pain in joint, lower leg 01/01/2008 022 Abnormal weight gain 05/19/2007 01/15/2010 Lumbago 12/29/2021 documented as of this encounter (statuses as of 10/21/2022) [address]16-2015 History of Past illness Narrative* Problem Noted Date Resolved Date Chronic back pain 01/30/2015 12/29/2021 Pain in joint, lower leg 01/01/2008 022 Abnormal weight gain 05/19/2007 01/15/2010 Lumbago 12/29/2021 documented as of this encounter (statuses as of 11/05/2022) [facility] History of Past illness Narrative* Problem Noted Date Resolved Date Abnormal weight gain 05/19/2007 01/15/2010 documented as of this encounter (statuses as of 09/02/2021) [facility] History of Past illness Narrative* Problem Noted Date Resolved Date Abnormal weight gain 05/19/2007 01/15/2010 documented as of this encounter (statuses as of 10/15/2021) [facility] History of Past illness Narrative* Problem Noted Date Resolved Date Abnormal weight gain 05/19/2007 01/15/2010 documented as of this encounter (statuses as of 11/28/2021) [facility] History of Past illness Narrative* Problem Noted Date Resolved Date Abnormal weight gain 05/19/2007 01/15/2010 documented as of this encounter (statuses as of 11/28/2021) [facility] Benjamin Gilbert [facility] Note Date/Time November 18, 2024 7:10a m [facility] Medical Records Department [address] [place] [address] Emergency Department Summary 11/18/24 MR#: [id number] Acct: [id number] Name: NAVIN AUGUST I Rep #:[id number] : 1960 64 From: Benjamin Gilbert MD PCP: Dr. Jaswinder Muñiz MD Status:REG ER Location: ED ADDENDUM by Dr. Benjamin Gilbert MD on 11/18/[address] Rodrigez suggested Medrol Dosepak since he is having so much pain. He did look at films. He agrees with treatment. 11/18/24 0710<Electronically signed by Benjamin Gilbert MD> Cosigner Signature (if applicable): cc: Dr. Jaswinder Muñiz MD ~* Signed HPI History of Present Illness Chief Complaint: Lower Extremity Injury Detail of Chief Complaint: Right foot trauma Informant: patient Onset/Context/Timing Onset: Today and Hours (Approximate 1 hour ago) Mechanism/Context: Blunt Injury Location of pain/injuries: Right foot Location: Foot mid Current Severity: Mild Maximum Severity: Severe Worsened by: Attempt to weight-bear Relieved by: Nothing Associated Symptoms Associated Symptoms: Positive for Inability to ambulate; Negative for Parasthesias, Weakness, Loss of function, Loss of consciousness or Amnesia Narrative Narrative: Patient is an elderly woman. She sustained injury to her right foot. She arrived by squad because she cannot put weight on it. This occurred approximate1 hour ago. She has no allergies. She has history of osteoarthritis, anxiety depression and hyperlipidemia. Prior similar symptoms: No Recent Illness/Hospitalization: No [...] DAILY 04/25/23 Unkn own History capsule,extended release methylprednisolone 4 mg tablets in See Rx Instructions PO .COMPLEX 11/18/24 Unknown Rx a dose pack (Medrol (Tank)) #21 tabs oxycodone-acetaminophen 5 mg-325 1 tab PO Q6H PRN PRN pain 5 days 11/18/24 Unknown Rx mg tablet #20 TABLETS Allergy/AdvReac Type Severity Reaction Status Date / Time No Known Allergies Allergy Verified 11/18/24 05:43 Family History Father Asthma Heart disease Osteoporosis Mother Arthritis Diabetes Thyroid disorder Brother CVA (cerebral vascular accident) Sister Breast cancer Surgical History Hx of colonoscopy Hx of exploratory laparotomy Social History household members: family housing: house Smoking Status: Current every day smoker tobacco type: cigarettes second hand exposure: No alcohol intake: never substance use type: does not use caffeine: Yes ROS ROS ED Musculoskeletal Musculoskeletal: Reports other Details: Foot pain, swelling and bruising ; Denies arthralgias or myalgias Integumentary Denies Abrasions or rash Neurologic Neurologic: Denies paresthesias Hematologic/Lymphatic Hematologic/Lymphatic: Denies easy bleeding or easy bruising EXAM Physical Exam Const Vital Signs: 11/18/24 05:44 Temperature 98.1 F Temperature Source Oral Pulse Rate 90 Respiratory Rate 18 Blood Pressure 147/84 H Blood Pressure Mean 105 Pulse Ox 95 Oxygen Delivery Method Room Air Positive well nourished and well developed General Appearance ED: well developed; Negative for NAD HEENT HEENT Narrative: Head is normocephalic. Ears are normal. Nares are patent. Teeth are normal. atraumatic Eyes PERRL and EOMs intact bilaterally Resp normal respiratory effort Cardio regular rhythm Rate: regular rate Extremity Negative for normal to inspection or full ROM Extremity Narrative: There is swelling and ecchymosis noted midfoot predominately lateral side. There is no pain ovation over the lateral or medial malleolus. She has pain ovation over the midfoot/3rd, 4th and 5th metatarsal. PT pulses palpable. Neuro oriented x3 and CN's II-XII intact bilaterally Yusef Coma Scale: document GCS findings Spontaneous Obeys Commands Oriented 15 Sensorium / Orientation: alert Psych mental status grossly normal and thought process normal Skin Skin Narrative: Bruising noted right foot PROC Procedures Lower Extremity Splints Lower Extremity Splint: Plaster and - (Short leg posterior splint) Splint Fabrication: Fabricated Location: Right MDM MDM MDM Narrative Medical decision making narrative: X-ray was obtained to the determine if this is a fracture versus strain. Patient was medicated with [place] 5/325. Radiography Chest X-Ray - ED: Read by ED Physician (Three-view x-ray of the right foot was independently reviewed interpreted by me. Patient has fracture of the 2nd, 3rd and 4th metatarsal. The fourth metatarsal is comminuted. The 3rd and 4th are transverse near the base. They are not intra-articular.) Diagnostic Testing: Clinical Impression(s) from Imaging Studies Foot X-Ray 11/18/24 06:00 IMPRESSION: Fractures of the 3rd and 4th metatarsal shafts, as described. Possible fractureof the 2nd metatarsal. Reading Location: [facility] Discharge Plan Triage Chief Complaint: Lower Extremity Injury ED Provider: Benjamin Gilbert Dx/Rx/DC Orders Clinical Impression: Fracture of fourth metatarsal bone of right foot, Fracture of third metatarsal bone of right foot, Closed fracture of second metatarsal bone of right foot, Elevated blood-pressure reading without diagnosis of hypertension Instructions: ED Fracture, Foot Prescriptions: New oxycodone-acetaminophen 5-325 mg tablet 1 tab PO Q6H PRN PRN (Reason: pain) 5 Days Qty: 20 0RF methylprednisolone [Medrol (Tank)] 4 mg tablets,dose pack See Rx Instructions .ROUTE .COMPLEX Qty: 21 0RF Rx Instructions: for 6 days No Action lamotrigine 200 mg tablet 400 mg PO DAILY pantoprazole 40 mg tablet,delayed release (DR/EC) 40 mg PO DAILY Qty: 30 4RF benztropine 1 mg tablet 1 mg PO DAILY galantamine 16 mg capsule,ext rel. pellets 24 hr 16 mg PO DAILY Primary Care Provider: Jaswinder Muñiz Referrals: Jaswinder Muñiz MD [Primary Care Provider] - Alex Rodrigez DPM [Med Staff - Active Staff] - 1 Week Activity Restrictions/Additional Instructions: 1. You cannot get the splint wet. 2. Keep your toes elevated 3. You cannot put any weight on your foot 4. Take pain medicine as prescribed 5. Apply ice 6-10 times a day Print Language: Afghan Disposition Disposition: Home, Self Care What to do if you have Problems For any increased pain, shortness of breath, bleeding, nausea or vomiting, chestpain, or any unexpected problems, contact your Primary Care Provider. Call [facility] ([phone]) or report to the closest Emergency Room. Call 911 if necessary. 11/18/24 0710 <Electronically signed by Benjmain Gilbert MD> Cosigner Signature (if applicable): CC: Dr. Jaswinder Muñiz MD ~ Signed [facility] Work Phone: Evaluation + Plan note No data available for this section [facility] Evaluation note* Diagnosis Degeneration of cervical intervertebral disc- Primary [facility] Degeneration of cervical intervertebral disc [facility] Diagnosis Degeneration of cervical intervertebral disc [facility] Diagnosis Degeneration of cervical intervertebral disc [facility]* Diagnosis Degeneration of cervical intervertebral disc [facility]* Diagnosis Fibromyalgia- Primary Mylagia and myositis, unspecified Degeneration of intervertebral disc of lumbar region Lumbar spondylosis Lumbosacral spondylosis without myelopathy Sacroiliitis (HCC) Sacroiliitis, not elsewhere classified Degeneration of intervertebral disc of cervical region Chronic knee pain, unspecified laterality documented in this encounter [facility] noteNo assessment information availableWKettering Health [facility] Work Phone: Evaluation note* Diagnosis Degeneration of cervical intervertebral disc [facility]* Diagnosis Fibromyalgia- Primary Mylagia and myositis, unspecified Degeneration of intervertebral disc of lumbar region Lumbar spondylosis Lumbosacral spondylosis without myelopathy Sacroiliitis (HCC) Sacroiliitis, not elsewhere classified Degeneration of intervertebral disc of cervical region Chronic knee pain, unspecified laterality documented [facility] this [facility]* Diagnosis Degeneration of cervical intervertebral disc documented [facility]* Diagnosis Degeneration of cervical intervertebral disc- Primary Fibromyalgia Mylagia and myositis, unspecified Degeneration of intervertebral disc of lumbar region Lumbar spondylosis Lumbosacral spondylosis without myelopathy Sacroiliitis (HCC) Sacroiliitis, not elsewhere classified Chronic knee pain, unspecified laterality documented in this encounter [facility]* Diagnosis Fibromyalgia- Primary Mylagia and myositis, unspecified Degeneration of intervertebral disc of lumbar region Lumbar spondylosis Lumbosacral spondylosis without myelopathy Degeneration of cervical intervertebral disc Sacroiliitis (HCC) Sacroiliitis, not elsewhere classified Chronic knee pain, unspecified laterality documented in this encounter [facility]* Diagnosis Degeneration of intervertebral disc of lumbar region [facility]* Diagnosis Fibromyalgia Mylagia and myositis, unspecified documented in this encounter [facility]* Diagnosis Degeneration of intervertebral disc of lumbar region [facility] Additional Instructions Hot shower, warm bath to the area. Ice. Motrin for pain and inflammation and Tylenol for pain. Your labs and CAT scan look good. I suspect you have a strained muscle between your rib cage and your back. This should progressively get better. Follow-up with your doctor if not.[facility] Work Phone: Hospital Discharge instructionsAdditional Instructions 1. You cannot get the splint wet. 2. Keep your toes elevated 3. You cannot put any weight on your foot 4. Take pain medicine as prescribed 5. Apply ice 6-10 times a dayWKettering Health [facility] Work Phone: Progress note No data available for this section [facility] Reason for referral (narrative)No reason for referral information availableWKettering Health [facility] Work Phone: Summary Purpose Family History No [...] No September 06, 2020 9:35am Power of [employer] De [employer] No September 06 9:35am Advance Directive Response Recorded Date/ Time Living Will No September 06, 2020 10:35am Power of [employer] De [employer] No September 06 10:35am Advance Directive Response Recorded Date/ Time Living Will No April 25 023 3:44pm Power of [employer] De [employer] No April 25, 2023 3:44pm Advance Directive Response Recorded Date/ Time Living Will No April 25 023 4:44pm Power of [employer] De [employer] No April 25, 2023 4:44pm Advance Directive Response Recorded Date/ Time Do you have a Healthcare Power of Chef De Cu[employer]? No October 28, 2024 7:17pm Advance Directive Response Recorded Date/ Time Do you have a Healthcare Power of [employer]? No October 28, 2024 7:17pm Do you have a Healthcare Power of Chef De [employer]? No November 18, 2024 5:44am Chief Complaint and Reason for Visit Chief [...] FLANK PAIN October 28, 2024 6:46 pm Chief Complaint Admit Date SCREENING September 29, 2024 6:33p m FLANK PAIN October 28, 2024 6:46 pm lower extremity November 18, 2024 5:43a m Additional Source Comments INFORMATION SOURCE (unrecogn ized section and content) DATE CREATED AUTHOR 10/31/2019 [facility] [place] DATE CREATED AUTHOR AUTHOR'S ORGANIZ ATION 12/29/2021 [facility] DATE CREATED AUTHOR AUTHOR'S ORGANIZ ATION 10/25/2022 [facility] DATE CREATED AUTHOR AUTHOR'S ORGANIZ ATION 11/06/2022 [facility] DATE CREATED AUTHOR AUTHOR'S ORGANIZ ATION 11/26/2024 [facility] Source Comments (unrecognize d section and content) In the event this informatio n is protected by the Federal Confidentiality of Alcohol and Drug Abuse Patient Records regulations: The Federal rules restrict any use of the information to criminally investigate or prosecute any alcohol or drug abuse patient.[facility] Hospital[facility] the event this information is protected by the Federal Confidentiality of Alcohol and Drug Abuse Patient Records regulations: The Federal rules restrict any use of the information to criminally investigate or prosecute any alcohol or drug abuse patient.[facility] HospitalIn the event this information is protected by the Federal Confidentiality of Alcohol and Drug Abuse Patient Records regulations: The Federal rules restrict any use of the information to criminally investigate or prosecute any alcohol or drug abuse patient.[facility] HospitalIn the event this information is protected by the Federal Confidentiality of Alcohol and Drug Abuse Patient Records regulations: The Federal rules restrict any use of the information to criminally investigate or prosecute any alcohol or drug abuse patient.[facility] HospitalIn the event this information is protected by the Federal Confidentiality of Alcohol and Drug Abuse Patient Records regulations: The Federal rules restrict any use of the information to criminally investigate or prosecute any alcohol or drug abuse patient.[facility] HospitalIn the event this information is protected by the Federal Confidentiality of Alcohol and Drug Abuse Patient Records regulations: The Federal rules restrict any use of the information to criminally investigate or prosecute any alcohol or drug abuse patient.[facility] HospitalIn the event this information is protected by the Federal Confidentiality of Alcohol and Drug Abuse Patient Records regulations: The Federal rules restrict any use of the information to criminally investigate or prosecute any alcohol or drug abuse patient.[facility] HospitalIn the event this information is protected by the Federal Confidentiality of Alcohol and Drug Abuse Patient Records regulations: The Federal rules restrict any use of the information to criminally investigate or prosecute any alcohol or drug abuse patient.[facility] HospitalIn the event this information is protected by the Federal Confidentiality of Alcohol and Drug Abuse Patient Records regulations: The Federal rules restrict any use of the information to criminally investigate or prosecute any alcohol or drug abuse patient.[facility] HospitalIn the event this information is protected by the Federal Confidentiality of Alcohol and Drug Abuse Patient Records regulations: The Federal rules restrict any use of the information to criminally investigate or prosecute any alcohol or drug abuse patient.[facility] the event this information is protected by the Federal Confidentiality of Alcohol and Drug Abuse Patient Records regulations: The Federal rules restrict any use of the information to criminally investigate or prosecute any alcohol or drug abuse patient.[facility] HospitalIn the event this information is protected by the Federal Confidentiality of Alcohol and Drug Abuse Patient Records regulations: The Federal rules restrict any use of the information to criminally investigate or prosecute any alcohol or drug abuse patient.[facility] HospitalIn the event this information is protected [...] or prosecute any alcohol or drug abuse patient.[facility] HospitalIn the event this information is protected by the Federal Confidentiality of Alcohol and Drug Abuse Patient Records regulations: The Federal rules restrict any use of the information to criminally investigate or prosecute any alcohol or drug abuse patient.[facility] HospitalIn the event this information is protected by the Federal Confidentiality of Alcohol and Drug Abuse Patient Records regulations: The Federal rules restrict any use of the information to criminally investigate or prosecute any alcohol or drug abuse patient.[facility] HospitalIn the event this information is protected by the Federal Confidentiality of Alcohol and Drug Abuse Patient Records regulations: The Federal rules restrict any use of the information to criminally investigate or prosecute any alcohol or drug abuse patient.[facility] HospitalIn the event this information is protected by the Federal Confidentiality of Alcohol and Drug Abuse Patient Records regulations: The Federal rules restrict any use of the information to criminally investigate or prosecute any alcohol or drug abuse patient.[facility] HospitalIn the event this information is protected by the Federal Confidentiality of Alcohol and Drug Abuse Patient Records regulations: The Federal rules restrict any use of the information to criminally investigate or prosecute any alcohol or drug abuse patient.[facility] HospitalIn the event this information is protected by the Federal Confidentiality of Alcohol and Drug Abuse Patient Records regulations: The Federal rules restrict any use of the information to criminally investigate or prosecute any alcohol or drug abuse patient.[facility] Care Teams (unrecognized sec tion and content) Tenant Selector Relationship Specialty Start Date End Date Yobany Snell Chi PCP - General Family Practice 11/20/11 Tenant Selector Relationship Specialty Start Date End Date Yobany Snell Chi PCP - General Family Practice 11/20/11 Tenant Selector Relationship Specialty Start Date End Date Channing, Yobany Chi PCP - General Family Practice 11/20/11 Tenant Selector Relationship Specialty Start Date End Date Channing, Yobany Chi PCP - General Family Practice 11/20/11 Tenant Selector Relationship Specialty Start Date End Date Channing, Yobany Chi PCP - General Family Practice 11/20/11 Tenant Selector Relationship Specialty Start Date End Date Channing, Yobany Chi PCP - General Family Medicine 11/20/11 Tenant Selector Relationship Specialty Start Date End Date Channing, Yobany Chi PCP - General Family Medicine 11/20/11 Tenant Selector Relationship Specialty Start Date End Date Channing, Yobany Chi PCP - General Family Medicine 11/20/11 Tenant Selector Relationship Specialty Start Date End Date Channing, Yobany Chi PCP - General Family Medicine 11/20/11 Tenant Selector Relationship Specialty Start Date End Date Channing, Yobany Chi PCP - General Family Medicine 11/20/11 Tenant Selector Relationship Specialty Start Date End Date Channing, [...] Provi marcelino, Attending Provider, Referring Provider Active Tenant Selector Relationship Specialty Start Date End Date Channing, Yobany Chi PCP - General Family Medicine 11/20/11 Tenant Selector Relationship Specialty Start Date End Date Yobany Snell Chi PCP - General Family Medicine 11/20/11 Tenant Selector Relationship Specialty Start Date End Date Yobany Snell Chi PCP - General Family Medicine 11/20/11 Tenant Selector Relationship Specialty Start Date End Date Yobany Snell Chi PCP - General Family Medicine 11/20/11 Tenant Selector Relationship Specialty Start Date End Date Yobany Snell Chi PCP - General Family Medicine 11/20/11 Tenant Selector Relationship Specialty Start Date End Date Yobany [...] October 28, 2024 End: October 28, 2024 Team Status: Active Member Role/Relationship Status Kaylen Muñiz MD Primary Care Provider Active Team Status: Inactive Member Role/Relationship Status Kaylen Muñiz MD Primary Care Provider Active St art: September 04, 2024 End: September 04, 2024 Jaswinder Muñiz MD Attending Provider Active Start : September 04, 2024 End: September 04, 2024 Jaswinder Muñiz MD Referring Provider Active Start : September 04, 2024 End: September 04, 2024 Team Status: Inactive Member Role/Relationship Status Kaylen Muñiz MD Primary Care Provider Active St art: September 29, 2024 End: September 29, 2024 Jaswinder Muñiz MD Attending Provider Active Start : September 29, 2024 End: September 29, 2024 Jaswinder Muñiz MD Referring Provider Active Start : September 29, 2024 End: September 29, 2024 Team Status: Inactive Member Role/Relationship Status Kaylen Muñiz MD Primary Care Provider Active St art: October 28, 2024 End: October 28, 2024 Dr. Abdirizak Perla MD Attending Provider Active S tart: October 28, 2024 End: October 28, 2024 Dr. Abdirizak Perla MD Emergency Provider Active S tart: October 28, 2024 End: October 28, 2024 Team Status: Inactive Member Role/Relationship Status Kaylen Muñiz MD Primary Care Provider Active St art: November 18, 2024 End: November 18, 2024 Dr. Benjamin Gilbert MD Emergency Provider Active Sta rt: November 18, 2024 End: November 18, 2024 Reason for Visit (unrecogniz ed section [...] Role: Primary Care Physician Address: Address: [facility] [place] [address]- Care Team Related Persons Name: NONE, Care Team Personnel Name: WILL SNELL MD Member Role: Primary Care Physician Address: Address: [facility] Care Team Related Persons Name: NONE, [...] BE BASED ON THE PRIMARY CLINICAL RECORDS. [facility] [employer] [facility]. provides no warranty or guarantee of the accuracy or completeness of information in this document.
--- NOTE | 2024-12-09 12:36 | CT_ITS ---
PROCEDURE: CHEST WITHOUT CONTRAST 12/09/2024 REASON FOR EXAM: R RIB PAIN, FALL TECHNIQUE: Chest CT without contrast. Coronal and Sagittal reconstruction series were provided. One or more dose reduction techniques were used (e.g., Automated exposure control, adjustment of the mA and/or kV according to patient size, use of iterative reconstruction technique RADIATION DOSE SUMMARY: CTDlvol: 82 mGy DLP: 1776 mGycm FINDINGS: No pulmonary contusion. No pneumothorax. Inspection of the ribs demonstrates no rib fracture, scapular fracture or clavicle fracture. No mediastinal mass. No aortic aneurysm. Mild coronary artery calcification. Upper abdomen demonstrates no significant abnormality. Sagittal reconstructions demonstrate no thoracic compression deformity or sternal deformity CT/Chest without Contrast IMPRESSION: Coronary artery calcification (CAC) is mild No acute injury Reading Location: [facility] [place]
--- NOTE | 2024-12-09 12:43 | EX.ED.GENINJ ---
HPI <ANGIE Vázquez - Last Filed: 12/09/24 19:05> History of Present Illness Chief Complaint: Fall Narrative Narrative: Patient presenting today due to concerns for a fall that occurred this morning. She reports a history of Alzheimer's and is not entirely sure what happened, but thinks that she went to get up off the couch and somehow fell and hit the right side of her body against the rocking chair that is next to her couch. She is unsure if she hit the ground or if she hit her head. She reports pain to her right shoulder, right knee, right foot, and right lateral ribs. She has a history of a known right foot fracture in a walking boot. She lives at home by herself and has had 3 mechanical falls in the last 2 weeks. She has a PMH of HLD, anxiety, tobacco use patient. PFSH <ANGIE Vázquez - Last Filed: 12/09/24 19:05> PFS Medical History Vitamin D deficiency Osteoarthritis Chronic pain Depression Anxiety Hyperlipidemia Home Medications ?Medication ?Instructions ?Recorded ?Last Taken ?Type lamotrigine 200 mg tablet 400 mg PO DAILY 08/26/20 12/08/24 History pantoprazole 40 mg tablet,delayed 40 mg PO DAILY #30 tabs 09/16/20 12/08/24 Rx release benztropine 1 mg tablet 1 mg PO DAILY 04/25/23 12/08/24 History galantamine 16 mg 24 hr 16 mg PO DAILY 04/25/23 12/08/24 History capsule,extended release amlodipine 5 mg tablet 5 mg PO DAILY 12/09/24 12/08/24 History ergocalciferol (vitamin D2) 1,250 50,000 unit PO DAILY 12/09/24 Unknown History mcg (50,000 unit) capsule memantine 10 mg tablet 10 mg PO BID 12/09/24 12/08/24 History vortioxetine 10 mg tablet 10 mg PO DAILY 12/09/24 12/08/24 History (Trintellix) Allergy/AdvReac Type Severity Reaction Status Date / Time No Known Allergies Allergy Verified 12/09/24 12:15 Family History Father Asthma Heart disease Osteoporosis Mother Arthritis Diabetes Thyroid disorder Brother CVA (cerebral vascular accident) Sister Breast cancer Surgical History Hx of colonoscopy Hx of exploratory laparotomy Social History household members: family housing: house Smoking Status: Current every day smoker tobacco type: cigarettes second hand exposure: No alcohol intake: never substance use type: does not use caffeine: Yes ROS <ANGIE Vázquez - Last Filed: 12/09/24 19:05> ROS ED Constitutional Constitutional ED: Denies chills or fever(s) Cardiovascular Cardiovascular: Denies chest pain Respiratory/Chest Respiratory/Chest: Denies dyspnea Gastrointestinal Gastrointestinal: Denies abdominal pain, nausea or vomiting Genitourinary Genitourinary ED: Denies dysuria, hematuria or urinary frequency Musculoskeletal Musculoskeletal: Reports arthralgias; Denies neck pain Integumentary Denies Abrasions Neurologic Neurologic: Denies weakness EXAM <ANGIE Vázquez - Last Filed: 12/09/24 19:05> Physical Exam Const Vital Signs: 12/09/24 12:13 12/09/24 12:22 12/09/24 13:45 Temperature 98.2 F Temperature Source Oral Pulse Rate 97 Pulse Rate [Lying] 79 Pulse Rate [Sitting (for 1 minute prior to obtaining)] 87 Pulse Rate [Standing (for 1 minute prior to obtaining)] 86 Respiratory Rate 18 Respiratory Effort Normal Non-Labored Respiratory Depth Normal Respiratory Pattern Normal Blood Pressure 152/100 H Blood Pressure [Lying] 142/88 H Blood Pressure [Sitting (for 1 minute prior to obtaining)] 151/88 H Blood Pressure [Standing (for 1 minute prior to obtaining)] 141/100 H Blood Pressure Mean 117 Blood Pressure Mean [Lying] 106 Blood Pressure Mean [Sitting (for 1 minute prior to obtaining)] 109 Blood Pressure Mean [Standing (for 1 minute prior to obtaining)] 113 Pulse Ox 99 Oxygen Delivery Method Room Air Room Air 12/09/24 14:13 12/09/24 16:00 12/09/24 16:15 Temperature 98.2 F Temperature Source Pulse Rate 74 78 78 Pulse Rate [Lying] Pulse Rate [Sitting (for 1 minute prior to obtaining)] Pulse Rate [Standing (for 1 minute prior to obtaining)] Respiratory Rate 18 16 16 Respiratory Effort Respiratory Depth Respiratory Pattern Blood Pressure 116/93 H 147/102 H 147/102 H Blood Pressure [Lying] Blood Pressure [Sitting (for 1 minute prior to obtaining)] Blood Pressure [Standing (for 1 minute prior to obtaining)] Blood Pressure Mean 100 117 117 Blood Pressure Mean [Lying] Blood Pressure Mean [Sitting (for 1 minute prior to obtaining)] Blood Pressure Mean [Standing (for 1 minute prior to obtaining)] Pulse Ox 96 98 98 Oxygen Delivery Method Room Air Room Air Positive well nourished, well developed and no apparent distress General Appearance ED: well developed HEENT Reports normocephalic and head/scalp atraumatic Mouth ED: Yes moist mucous membranes normal Eyes PERRL and EOMs intact bilaterally Neck full ROM and supple Chest Wall inspection of chest normal Chest Narrative: Tenderness to the right lateral ribs, no crepitus, no overlying bruising Resp normal respiratory effort and clear to auscultation bilaterally Cardio regular rate and regular rhythm GI soft to palpation, non-tender, non-distended and no masses Back/Spine normal ROM and normal to inspection Extremity normal to inspection and full ROM Extremity Narrative: Full range of motion to the right shoulder with minimal tenderness to palpation, no tenderness along the right clavicle, right radial and DP pulse 2+. Tenderness across the dorsum of the right foot, she is in a walking boot, neurovascularly intact to the right lower extremity. Full range of motion to the right knee, extensor mechanism intact, no joint effusion to the right knee, generalized pain to palpation to the right knee. No warmth or erythema to the right upper or lower extremities. Neuro oriented x3, CN's II-XII intact bilaterally, moves all extremities, no focal motor deficits and no sensory deficits noted Sensorium / Orientation: awake and alert Psych mental status grossly normal and thought process normal Skin no rashes or lesions noted and no wounds <Dr. Mercedes Duggan, DO - Last Filed: 12/11/24 08:41> Physical Exam Const Vital Signs: 12/09/24 12:13 12/09/24 12:22 12/09/24 13:45 Temperature 98.2 F Temperature Source Oral Pulse Rate 97 Pulse Rate [Lying] 79 Pulse Rate [Sitting (for 1 minute prior to obtaining)] 87 Pulse Rate [Standing (for 1 minute prior to obtaining)] 86 Respiratory Rate 18 Respiratory Effort Normal Non-Labored Respiratory Depth Normal Respiratory Pattern Normal Blood Pressure 152/100 H Blood Pressure [Lying] 142/88 H Blood Pressure [Sitting (for 1 minute prior to obtaining)] 151/88 H Blood Pressure [Standing (for 1 minute prior to obtaining)] 141/100 H Blood Pressure Mean 117 Blood Pressure Mean [Lying] 106 Blood Pressure Mean [Sitting (for 1 minute prior to obtaining)] 109 Blood Pressure Mean [Standing (for 1 minute prior to obtaining)] 113 Pulse Ox 99 Oxygen Delivery Method Room Air Room Air 12/09/24 14:13 12/09/24 16:00 12/09/24 16:15 Temperature 98.2 F Temperature Source Pulse Rate 74 78 78 Pulse Rate [Lying] Pulse Rate [Sitting (for 1 minute prior to obtaining)] Pulse Rate [Standing (for 1 minute prior to obtaining)] Respiratory Rate 18 16 16 Respiratory Effort Respiratory Depth Respiratory Pattern Blood Pressure 116/93 H 147/102 H 147/102 H Blood Pressure [Lying] Blood Pressure [Sitting (for 1 minute prior to obtaining)] Blood Pressure [Standing (for 1 minute prior to obtaining)] Blood Pressure Mean 100 117 117 Blood Pressure Mean [Lying] Blood Pressure Mean [Sitting (for 1 minute prior to obtaining)] Blood Pressure Mean [Standing (for 1 minute prior to obtaining)] Pulse Ox 96 98 98 Oxygen Delivery Method Room Air Room Air [facility] <ANGIE Vázquez - Last Filed: 12/09/24 19:05> [facility] Narrative Medical decision making narrative: Patient presenting today due to a fall that occurred this morning. She has a history of Alzheimer's and does not recall the entire event but thinks that she may have hit her right side against a rocking chair that is next to the couch when trying to get up. She is currently alert and oriented x 4. Given she is unsure if she hit her head or not, head CT will be obtained to assess for intracranial bleed and cervical spine CT will be obtained to assess for fracture. Given her right lateral rib pain, CT scan of the chest will be obtained to assess for rib fracture. X-rays of the right shoulder, knee, and foot will be obtained given her pain. Labs obtained to assess for leukocytosis, anemia, electrolyte derangement, CHINEDU, and UTI. Patient given IV fluids. Her labs are largely unremarkable. CT scans are negative for acute findings, x-ray is negative for fracture. Orthostatic vital signs are negative. Given she has had 3 falls in the last 2 weeks and lives by herself, we did recommend admission to the hospital for SNF placement but she is not wanting to be admitted at this time. She does have the capacity to make her own medical decisions. Social work was consulted to provide additional resources. She is starting physical therapy on Wednesday and also is scheduled to have home health start coming out to the house regularly. Her neighbor checks up on her daily as well. cloth printing utility worker is going to set her up with a life alert fall button. She is able to ambulate here without difficulty and will be discharged home in stable condition. Lab Data Attestation: I reviewed the patient's lab results. Labs: Laboratory Results - last 24 hr 12/09/24 12/09/24 12:55 13:25 WBC 7.6 RBC 3.75 L Hgb 12.3 Hct 35.6 L MCV 94.9 MCH 32.8 H MCHC 34.6 RDW Std Deviation 46.7 H RDW Coeff of Jeanne 13.4 Plt Count 463 H MPV 9.2 Immature Gran % (Auto) 0.300 Neut % (Auto) 73.3 H Lymph % (Auto) 17.6 L [place] % (Auto) 4.9 Eos % (Auto) 3.0 Baso % (Auto) 0.9 Absolute Neuts (auto) 5.5 Absolute Lymphs (auto) 1.33 Nucleated RBC % 0 Sodium 132 L Potassium 4.5 Chloride 95 L Carbon Dioxide 25.2 Anion Gap 12 BUN 20 H Creatinine 0.94 Est GFR (MDRD) Non-Af 67 BUN/Creatinine Ratio 20.9 H Glucose 131 H Calcium 9.4 Urine Color Yellow Urine Clarity Clear Urine pH 7.0 Ur Specific [place] 1.010 Urine Protein Negative Urine Glucose (UA) Normal Urine Ketones Negative Urine Occult Blood Negative Urine Nitrite Negative Urine Bilirubin Negative Urine Urobilinogen Normal Ur Leukocyte Esterase Negative Urine RBC 0 SEEN Urine WBC 0 SEEN Ur Squamous Epith Cells 0-5 SEEN Urine Bacteria 0 SEEN Urine Mucus 0 SEEN Radiography X-Ray: Read by ED Physician Diagnostic Testing: Clinical Impression(s) from Imaging Studies Brain CT 12/09/24 12:35 IMPRESSION: No acute intracranial abnormality. Reading Location: [facility] Cervical Spine CT 12/09/24 12:35 IMPRESSION: No acute cervical spine fracture. Spondylosis. Reading Location: [facility] Chest CT 12/09/24 12:36 IMPRESSION: Coronary artery calcification (CAC) is mild No acute injury Reading Location: [facility] Foot X-Ray 12/09/24 13:15 IMPRESSION: Fractures as above. Reading Location: [facility] Knee X-Ray 12/09/24 13:15 IMPRESSION: No acute osseous abnormalities. Reading Location: [facility] Shoulder X-Ray 12/09/24 13:15 IMPRESSION: No acute osseous abnormalities. Acromioclavicular osteoarthrosis.. Reading Location: [facility] EKG Initial EKG: Comments: 86 bpm, normal sinus rhythm, no ST elevation <Dr. Mercedes Duggan, DO - Last Filed: 12/11/24 08:41> [facility] Lab Data Labs: Laboratory Results - last 24 hr 12/09/24 12/09/24 12:55 13:25 WBC 7.6 RBC 3.75 L Hgb 12.3 Hct 35.6 L MCV 94.9 MCH 32.8 H MCHC 34.6 RDW Std Deviation 46.7 H RDW Coeff of Jeanne 13.4 Plt Count 463 H MPV 9.2 Immature Gran % (Auto) 0.300 Neut % (Auto) 73.3 H Lymph % (Auto) 17.6 L [place] % (Auto) 4.9 Eos % (Auto) 3.0 Baso % (Auto) 0.9 Absolute Neuts (auto) 5.5 Absolute Lymphs (auto) 1.33 Nucleated RBC % 0 Sodium 132 L Potassium 4.5 Chloride 95 L Carbon Dioxide 25.2 Anion Gap 12 BUN 20 H Creatinine 0.94 Est GFR (MDRD) Non-Af 67 BUN/Creatinine Ratio 20.9 H Glucose 131 H Calcium 9.4 Urine Color Yellow Urine Clarity Clear Urine pH 7.0 Ur Specific [place] 1.010 Urine Protein Negative Urine Glucose (UA) Normal Urine Ketones Negative Urine Occult Blood Negative Urine Nitrite Negative Urine Bilirubin Negative Urine Urobilinogen Normal Ur Leukocyte Esterase Negative Urine RBC 0 SEEN Urine WBC 0 SEEN Ur Squamous Epith Cells 0-5 SEEN Urine Bacteria 0 SEEN Urine Mucus 0 SEEN Radiography Diagnostic Testing: Clinical Impression(s) from Imaging Studies Brain CT 12/09/24 12:35 IMPRESSION: No acute intracranial abnormality. Reading Location: [facility] Cervical Spine CT 12/09/24 12:35 IMPRESSION: No acute cervical spine fracture. Spondylosis. Reading Location: [facility] Chest CT 12/09/24 12:36 IMPRESSION: Coronary artery calcification (CAC) is mild No acute injury [facility] Foot X-Ray 12/09/24 13:15 IMPRESSION: Fractures as above. Reading Location: [id number] Knee X-Ray 12/09/24 13:15 IMPRESSION: No acute osseous abnormalities. Reading Location: [facility] Shoulder X-Ray 12/09/24 13:15 IMPRESSION: No acute osseous abnormalities. Acromioclavicular osteoarthrosis.. Reading Location: [facility] Treatment and Re-Evaluation Narrative: I have personally performed a face to face assessment of the patient and have reviewed the ZAKIA Note. I performed a substantive portion of the visit including all aspects of the following. My morejon findings include: History is patient is a 64-year-old female with reported history of Alzheimer's dementia, GERD, hypertension and recent fall with subsequent right foot/metatarsal fracture presenting with right sided pain with concern for another fall. She is not sure because of her dementia) as well as dizziness. She states this is her third fall in 2 weeks. She does not home alone. She has a neighbor who helps her who is with her. Neighbor states that is post have case management or social work come to her house and the home nurse on Wednesday. Patient is mostly complaining of left shoulder pain on my exam. She does smoke cigarettes. On exam she her head is normocephalic atraumatic. She is alert. She does have dry mucosal membranes. GCS equals 15. Neck nontender with normal range of motion. No step-off sign. No obvious bony deformity of the right shoulder but is mildly tender. Abdomen soft nontender. Pelvis is stable. Patric wrap/splint present over her right foot. Patient is moving all extremities. No focal neurologic deficits. Workup including shoulder x-ray, knee x-ray and foot x-ray viewed by myself as radiology does not show any acute process. She continues to have comminuted fracture of the base of the fourth metatarsal as well as nondisplaced fracture of the base of the 2nd and 3rd metatarsals. CT of the brain, neck and chest does not show any acute traumatic process. Lab including CBC, CMP and urinalysis largely unremarkable. Orthostatics are negative however patient is dizzy during them. Will have patient evaluate by social work as I am concerned about her safety at home however at this time patient overall is acting appropriate and does seem to have capacity to make her own medical decisions. She is given IV fluids in the emergency room. Patient evaluated by social work. Declined admission. Ultimately will be discharged home with life alert and further outpatient resources. Encouraged to return should she have further falls or concerns Other additions or changes: [None] Discharge Plan Triage Chief Complaint: Fall ED Midlevel Provider: Jessica Guidry ED Provider: Mercedes Duggan Dx/Rx/DC Orders Clinical Impression: Closed fracture of right foot, Dementia, Frequent falls, Dizziness, Knee pain, right, Contusion of rib on right side Instructions: Knee Pain, ED Fall with Uncertain Cause, ED Bruise, Rib Prescriptions: No Action lamotrigine 200 mg tablet 400 mg PO DAILY pantoprazole 40 mg tablet,delayed release (DR/EC) 40 mg PO DAILY Qty: 30 4RF benztropine 1 mg tablet 1 mg PO DAILY Patient Comments: 1 tab in am and 2 tabs at night galantamine 16 mg capsule,ext rel. pellets 24 hr 16 mg PO DAILY amlodipine 5 mg tablet 5 mg PO DAILY memantine 10 mg tablet 10 mg PO BID Trintellix 10 mg tablet 10 mg PO DAILY ergocalciferol (vitamin D2) 1,250 mcg (50,000 unit) capsule 50,000 unit PO DAILY Primary Care Provider: Jaswinder Muñiz Referrals: Jaswinder Muñiz MD [Primary Care Provider] - 5-7 Days Activity Restrictions/Additional Instructions: Follow-up close with your PCP and return for any other concerns or worsening symptoms. Print Language: Turkish Disposition Disposition: Home, Self Care Discharge Date/Time: 12/09/24 16:32
[2024-12-09 13:00] LABS: Hematocrit 35.6 % (37-47); Hemoglobin 12.3 g/dL (12.0-15.0); Immature Granulocytes Count 0.020 X10^3/uL (0.0-0.0); Mean Corp Hgb Conc 34.6 g/dL (32-36); Mean Corpuscular Volume 94.9 fL (81-99); Mean Platelet Vol. 9.2 fl (6.2-12.0); NRBC Flagged by Analyzer 0 % (0-5); Platelet Count 463 K/mm3 (150-450); RBC Distribution Width CV 13.4 % (11.6-14.6); RBC Distribution Width SD 46.7 fl (35.1-43.9); Red Blood Count 3.75 M/mm3 (4.2-5.4); White Blood Count 7.6 K/mm3 (4.4-11.0)
--- NOTE | 2024-12-09 13:15 | RAD_ITS ---
PROCEDURE: FOOT MIN 3 VIEWS 12/09/2024 REASON FOR EXAM: FALL, PAIN TECHNIQUE: FOOT MIN 3 VIEWS COMPARISON: 11/18/2024. FINDINGS: Redemonstration of a comminuted fracture of the base of the 4th metatarsal. Nondisplaced fractures of the bases of the 2nd and 3rd metatarsals. Redemonstration of the nondisplaced fracture of the medial cuneiform. The joint spaces are maintained. RAD/Foot min 3 Views IMPRESSION: Fractures as above. Reading Location: [id number]
--- NOTE | 2024-12-09 13:15 | RAD_ITS ---
PROCEDURE: SHOULDER MIN 2 VIEWS 12/09/2024 REASON FOR EXAM: FALL, PAIN TECHNIQUE: SHOULDER MIN 2 VIEWS COMPARISON: 09/02/2023. FINDINGS: No evidence acute fracture or dislocation. [id number] degenerative changes of the acromioclavicular joint. RAD/Shoulder min 2 Views IMPRESSION: No acute osseous abnormalities. Acromioclavicular osteoarthrosis.. Reading Location: [id number]
--- NOTE | 2024-12-09 13:15 | RAD_ITS ---
PROCEDURE: KNEE 4 OR MORE VIEWS 12/09/2024 REASON FOR EXAM: FALL, PAIN TECHNIQUE: KNEE 4 OR MORE VIEWS COMPARISON: None. FINDINGS: No evidence acute fracture or dislocation. Mild degenerative changes of the knee. No joint effusion. RAD/Knee 4 or More Views IMPRESSION: No acute osseous abnormalities. Reading Location: [id number]
[2024-12-09 13:38] LABS: Mucous, Urine 0 SEEN /hpf (<or=2+); Red Blood Cells-Urine 0 SEEN /hpf (0-5)
[2024-12-09 13:40] LABS: Anion Gap 12 (5-15); BUN 20 mg/dL (4-19); BUN/Creat Ratio 20.9 RATIO (10-20); Calcium,Total 9.4 mg/dL (7.6-11.0); Carbon Dioxide 25.2 mmol/L (21.0-32.0); Chloride 95 mmol/L (98-108); Glucose 131 mg/dL (70-99); Potassium 4.5 mmol/L (3.3-5.1)
[2024-12-09 13:41] LABS: Color, Urine Yellow (Yellow); Glucose, Dipstick Normal (Normal); Ketone-Dipstick Negative (Negative); Leukocyte Esterase-Dipstick Negative /ul (Negative); Nitrite-Dipstick Negative (Negative); Occult Blood-Urine Negative /ul (Negative); Protein-Dipstick Negative (Negative); Specific Gravity, Urine 1.010 (1.002-1.030); Urine Bilirubin Dipstick Negative (Negative)
[2024-12-09] MEDS: 0.9% Normal Saline (500mL Bag) 500 ML 999 ML IV (13:44)
[2024-12-09 13:45] VITALS: BP 141/100; BP 142/88; BP 151/88; PULSE 79; PULSE 86; PULSE 87
[2024-12-09 13:47] VITALS: BMI 31.9
[2024-12-09 13:49] LABS: Squamous Epithelial Cells - UA 0-5 SEEN /hpf (5-10)
[2024-12-09 14:13] VITALS: BP 116/93; PULSE 74; RESP 18; O2SAT 96
--- NOTE | 2024-12-09 15:55 | CM.ED ---
Social Work Date of referral: 12/09/24 Reason for referral: Discharge Planning Referred by: Jessica Guidry Patient provided consent to Social Work visit. Patient was oriented to her first and last name, date of , full address including zip code, month, date and year, and being present at [facility] following a fall. Also in the room was patient's neighbor/friend Marti. Patient confirmed she currently lives alone and Marti checks in on patient at least once a day. Patient also has a daughter who resides in [place] and a sister who resides in [place]. Patient denied having 3 falls within the past 2 weeks but did confirm 2 falls that she believes to be related to getting up while sleeping to go to the bathroom as well as not having good oxygen at night. Patient stated the first time she fell (11/18/24) was during the middle of the night after she had taken a muscle relaxer. Patient had gotten up then to go to the bathroom. Patient suffered a fracture and is currently still in a boot. On this date, patient stated she woke early this morning because she was hot in her bedroom, and transferred to the couch in the living room. Patient stated she doesn't remember falling however, suspects she had woken up to go to the bathroom when she fell. Patient stated she's currently awaiting a sleep study so she can be fitted for a CPAP. Patient stated she has a mental health social worker coming to her apartment on Wednesday to help her fill out the paperwork for advanced care directives and also has someone coming out to start physical therapy with her on Wednesday. Patient has a home health aide (AGRICULTURAL SCIENCE PROFESSOR) who has been out once so far to help patient with activities of daily living and independent activities of daily living. Patient unable to remember what company these providers are through and also wasn't able to remember what days and/or how many hours she has been approved for a AGRICULTURAL SCIENCE PROFESSOR. Patient stated her insurance pays for her AGRICULTURAL SCIENCE PROFESSOR. Patient admitted she has began experiencing some memory loss. Shoe Repairer inquired about how patient manages her medication to which point patient replied all her her medication comes pre-packaged and is delivered to her home from [place]. Patient stated she only has to take her medication in the morning and at night and all of the packets are marked with the date and indicate whether it's the morning or evening dose. Patient stated she takes her medications as prescribed. Patient described an on-again, off-again relationship with her daughter but overall identified both her daughter and her sister as supports who are actively helping patient as needed. Shoe Repairer provided verbal education on fall prevention education and provided written resources for various emergency response devices with GPS and fall detection which patient expressed appreciation for. Patient stated she does not want to stay/be admitted to the hospital and/or a [facility] facility for observation and/or rehab and expressed a preference to be discharged from the ED to home as soon as possible. Shoe Repairer reviewed potential risks which patient verbalized she understood. Patient denied any other concerns/needs at this time. Henna Vickers, PAYROLL AUDITOR, B2B APPOINTMENT SETTER
[2024-12-09 16:00] VITALS: BP 147/102; PULSE 78; RESP 16; O2SAT 98
[2024-12-09 16:15] VITALS: BP 147/102; PULSE 78; RESP 16; TEMP 36.8; O2SAT 98
== END 2024-12-09 16:32 | disposition home or self-care (01) ==
PROVIDERS: Physician Assistant; Emergency Provider Emergency Medicine; PCP Family Medicine; Visit Provider Emergency Medicine
DX: S92.901A Unspecified fracture of right foot, initial encounter for closed fracture (principal); F02.80 Dementia in other diseases classified elsewhere, unspecified severity, without behavioral disturbance, psychotic disturbance, mood disturbance, and anxiety; G30.9 Alzheimer's disease, unspecified; R42 Dizziness and giddiness; E78.5 Hyperlipidemia, unspecified; S20.211A Contusion of right front wall of thorax, initial encounter; F17.210 Nicotine dependence, cigarettes, uncomplicated; F41.9 Anxiety disorder, unspecified; M25.561 Pain in right knee; Z79.899 Other long term (current) drug therapy; W19.XXXA Unspecified fall, initial encounter
CPT/HCPCS: 70450; 71250; 72125; 73030; 73564; 73630; 80048; 81001; 85025; 93005; 96360; 99284; A4216

== ENCOUNTER → 2025-02-09 | Outpatient (CLI) | payer MEDICARE, SELFPAY ==
--- NOTE | 2025-02-09 13:00 | RAD_ITS ---
PROCEDURE: SHOULDER MIN 2 VIEWS 02/09/2025 REASON FOR EXAM: RIGHT SHOULDER PAIN TECHNIQUE: Procedure Code: RAD Modality: DX Procedure: SHOULDER MIN 2 VIEWS Laterality: Right COMPARISON: Right shoulder dated 12/09/2024 FINDINGS: Bones: There are no fractures or dislocations. Joints: [id number] degenerative changes of the acromioclavicular joint are noted. The glenohumeral joint is well preserved. The humeral acromial space is well preserved. The coracoclavicular space is well preserved. Soft tissues: Soft tissues are unremarkable. Other: Visualized right ribs are intact without evidence of displaced fracture. Visualized right lung is clear. RAD/Shoulder min 2 Views IMPRESSION: [id number] osteoarthritic changes are seen involving the right acromiocla vicular joint. Reading Location: [id number]
--- NOTE | 2025-02-09 13:00 | RAD_ITS ---
PROCEDURE: SHOULDER MIN 2 VIEWS 02/09/2025 REASON FOR EXAM: RIGHT SHOULDER PAIN TECHNIQUE: Procedure Code: RAD Modality: DX Procedure: SHOULDER MIN 2 VIEWS Laterality: Right COMPARISON: Right shoulder dated 12/09/2024 FINDINGS: Bones: There are no fractures or dislocations. Joints: [id number] degenerative changes of the acromioclavicular joint are noted. The glenohumeral joint is well preserved. The humeral acromial space is well preserved. The coracoclavicular space is well preserved. Soft tissues: Soft tissues are unremarkable. Other: Visualized right ribs are intact without evidence of displaced fracture. Visualized right lung is clear. RAD/Shoulder min 2 Views IMPRESSION: [id number] osteoarthritic changes are seen involving the right acromiocla vicular joint. Reading Location: [id number]
== END | disposition home or self-care (01) ==
LOC: MTRAD 12:57
PROVIDERS: PCP Family Medicine; Referring Provider Family Medicine; Visit Provider Family Medicine
DX: M25.511 Pain in right shoulder (principal)
CPT/HCPCS: 73030